=== PATIENT | female | born 1955 | race Caucasian/White ===

== ENCOUNTER → 2018-03-21 10:33 | Outpatient (CLI) | payer BC, SELFPAY ==
[2018-03-21 12:09] LABS: Microalbumin,Random Urine 63.4 mg/L (NO RANGE EST.); Microalbumin:Creatinine Ratio 52.4 mg/g CRE (<30 mg/g CRE)
[2018-03-21 12:10] LABS: ALB/GLOB Ratio 0.8 RATIO (0.9-2.4); AST(SGOT) 23 U/L (15-37); Alanine Aminotransfer ALT/SGPT 23 U/L (13-56); Albumin, Serum 3.5 g/dL (3.2-5.0); Alkaline Phosphatase 109 U/L (45-117); Anion Gap 7 (5-15); BUN 13 mg/dL (7-18); BUN/Creat Ratio 15.4 RATIO (10-20); Calcium,Total 9.1 mg/dL (8.5-10.1); Chloride 96 mmol/L (98-107); Cholesterol 225 mg/dL (200); Creatinine, Serum 0.84 mg/dL (0.55-1.02); EST Glomerular Filtration Rate 72 mL/min (>60); Est Glom Filt Rate - Afr Amer 87 mL/min (>60); Globulin 4.5 g/dL (2.2-4.2); Glucose 366 mg/dL (74-106); High Density Lipoprotein 35 mg/dL; Potassium 4.2 mmol/L (3.5-5.1); Sodium Level 134 mmol/L (136-145); Triglycerides 434 mg/dL
[2018-03-21 12:13] LABS: Hemoglobin A1c 12.3 % (4.2-6.3)
== END ==
PROVIDERS: Visit Provider Nurse Practitioner
DX: E11.8 Type 2 diabetes mellitus with unspecified complications (principal); E11.65 Type 2 diabetes mellitus with hyperglycemia
CPT/HCPCS: 36415; 80053; 80061; 82043; 82570; 83036

== ENCOUNTER → 2018-07-24 14:34 | Outpatient (CLI) | payer MEDICARE, BC, SELFPAY ==
[2018-07-24 16:09] LABS: Hemoglobin A1c 11.9 % (4.2-6.3)
[2018-07-24 16:24] LABS: ALB/GLOB Ratio 0.8 RATIO (0.9-2.4); AST(SGOT) 19 U/L (15-37); Alanine Aminotransfer ALT/SGPT 21 U/L (13-56); Albumin, Serum 3.3 g/dL (3.2-5.0); Alkaline Phosphatase 86 U/L (45-117); Anion Gap 10 (5-15); BUN 11 mg/dL (7-18); BUN/Creat Ratio 16.1 RATIO (10-20); Calcium,Total 9.3 mg/dL (8.5-10.1); Chloride 99 mmol/L (98-107); Cholesterol 208 mg/dL (200); Creatinine, Serum 0.68 mg/dL (0.55-1.02); EST Glomerular Filtration Rate 92 mL/min (>60); Est Glom Filt Rate - Afr Amer 111 mL/min (>60); Globulin 4.2 g/dL (2.2-4.2); Glucose 225 mg/dL (74-106); High Density Lipoprotein 35 mg/dL; Protein, Total 7.5 g/dL (6.4-8.2); Sodium Level 136 mmol/L (136-145); Triglycerides 344 mg/dL; Very Low Density Lipoprotein 69 mg/dL (5-40)
[2018-07-24 17:04] LABS: Microalbumin,Random Urine 29.4 mg/L (NO RANGE EST.)
== END ==
PROVIDERS: Visit Provider Nurse Practitioner
DX: E11.65 Type 2 diabetes mellitus with hyperglycemia (principal)
CPT/HCPCS: 36415; 80053; 80061; 82043; 82570; 83036

== ENCOUNTER → 2018-10-23 12:48 | Outpatient (CLI) | payer MEDICARE, BC, SELFPAY ==
[2018-10-23 13:53] LABS: Microalbumin,Random Urine 57.3 mg/L (NO RANGE EST.)
[2018-10-23 13:54] LABS: Hemoglobin A1c 10.2 % (4.2-6.3)
[2018-10-23 14:14] LABS: ALB/GLOB Ratio 0.8 RATIO (0.9-2.4); AST(SGOT) 16 U/L (15-37); Alanine Aminotransfer ALT/SGPT 20 U/L (13-56); Albumin, Serum 3.3 g/dL (3.2-5.0); Alkaline Phosphatase 106 U/L (45-117); Anion Gap 11 (5-15); BUN 16 mg/dL (7-18); BUN/Creat Ratio 18.9 RATIO (10-20); Calcium,Total 9.1 mg/dL (8.5-10.1); Chloride 98 mmol/L (98-107); Cholesterol 148 mg/dL (200); Creatinine, Serum 0.85 mg/dL (0.55-1.02); EST Glomerular Filtration Rate 72 mL/min (>60); Est Glom Filt Rate - Afr Amer 87 mL/min (>60); Globulin 4.3 g/dL (2.2-4.2); Glucose 310 mg/dL (74-106); High Density Lipoprotein 37 mg/dL; Potassium 3.9 mmol/L (3.5-5.1); Protein, Total 7.6 g/dL (6.4-8.2); Sodium Level 138 mmol/L (136-145); Triglycerides 179 mg/dL; Very Low Density Lipoprotein 36 mg/dL (5-40)
[2018-10-23 14:22] LABS: Thyroid Stim Hormone (TSH) 1.38 uIU/mL (0.358-3.74)
== END ==
PROVIDERS: Referring Provider Nurse Practitioner; Visit Provider Nurse Practitioner
DX: E11.9 Type 2 diabetes mellitus without complications (principal)
CPT/HCPCS: 36415; 80053; 80061; 82043; 83036; 84443

== ENCOUNTER → 2018-10-30 08:41 | Outpatient (CLI) | payer MEDICARE, BC, SELFPAY ==
[2018-10-23 13:34] VITALS: BMI 29.2
--- NOTE | 2018-10-30 08:44 | US_ITS ---
STUDY: THYROID ULTRASOUND REASON FOR EXAM: Female, 63 years old. Swallowing, dysphasia TECHNIQUE: Ultrasound evaluation of the thyroid was performed with real-time and static ruggiero-scale imaging. COMPARISON: None. FINDINGS: RIGHT LOBE: The right lobe of the thyroid gland measures 4.1 x 1.3 x 1.6 cm. There is a homogeneous echotexture. There are no demonstrated solid, cystic or complex lesions. LEFT LOBE: The left lobe of the thyroid gland measures 4.3 x 1.4 x 1.1 cm. There is a homogeneous echotexture. There are a few tiny cystic appearing structures within the left side of the thyroid the largest of which measures 4 x 3 x 3 mm. There is a hypoechoic nodule measuring 2.5 x 2.5 mm. ISTHMUS: The isthmus measures 3 mm. . The regional lymph nodes are normal. US/Thyroid IMPRESSION: Within normal size thyroid. Probably benign-appearing nodules within the left thyroid lobe measuring less than 4 mm. Recommend follow-up ultrasound in 6 months to ensure stability. Electronically Signed: Susannah Spencer MD at 19:31 EST Tel , Service support ,
--- OUTSIDE RECORDS SUMMARY | 2018-12-23 10:05 | XMS RPT_ITS ---
:1955 Author Organization OHIP Support Name Relationship Address Phone JORGE RIVERA Unavailable [address] + [place] [address] R Unavailable Unavailable Unavailable GLORIA REYNOSO Unavailable [address] + [place] [address] RIVERAJORGE Unavailable [address] + [place] [address] R Unavailable Unavailable Unavailable GLORIA REYNOSO Unavailable [address] + [place] [address] JORGE RIVERA Unavailable [address] + [place] [address] R Unavailable Unavailable Unavailable GLORIA REYNOSO Unavailable [address] + [place] [address] JORGE RIVERA Unavailable [address] + [place] [address] R Unavailable Unavailable Unavailable GLORIA REYNOSO Unavailable [address] + [place] [address] JORGE RIVERA Unavailable [address] + [place] [address] R Unavailable Unavailable Unavailable GLORIA REYNOSO Unavailable [address] + [place] [address] JORGE RIVERA Unavailable [address] + [place] [address] R Unavailable Unavailable Unavailable GLORIA REYNOSO Unavailable [address] + [place] [address] JORGE RIVERA Unavailable [address] + [place] [address] R Unavailable Unavailable Unavailable GLORIA REYNOSO Unavailable [address] + [place] [address] JORGE RIVERA Unavailable [address] + [place] [address] R Unavailable Unavailable Unavailable GLORIA REYNOSO Unavailable [address] + [place] [address] JORGE RIVERA Unavailable [address] + [place] [address] R Unavailable Unavailable Unavailable GLORIA REYNOSO Unavailable [address] + [place] [address] Care Team Providers Name Role Phone BABIUCH, MARIAJOSE Attending Unavailable BABIUCH, MARIAJOSE Referring Unavailable BABIUCH, MARIAJOSE Attending Unavailable BABIUCH, MARIAJOSE Referring Unavailable BABIUCH, MARIAJOSE Attending Unavailable BABIUCH, MARIAJOSE Referring Unavailable BABIUCH, MARIAJOSE Attending Unavailable BABIUCH, MARIAJOSE Referring Unavailable BABIUCH, MARIAJOSE Attending Unavailable DEASY, DELL F Attending Unavailable BABIUCH, MARIAJOSE Referring Unavailable DEASY, DELL F Attending Unavailable DEASY, DELL F Referring Unavailable DEASY, DELL F Attending Unavailable DEASY, DELL F Referring Unavailable Stencel, Kapil Primary Care Unavailable Chris Bloom Admitting Unavailable Chris Bloom Attending Unavailable Shanika Pope Attending Unavailable Mary Carrera SUBWAY CAR REPAIRER-C Attending Unavailable Primay Care Physicia, No Referring Unavailable Primay Care Physicia, No Primary Care Unavailable ShoMary bernal [employer]WAY CAR REPAIRER-C Attending Unavailable Primay Care Physicia, No Referring Unavailable Mary Carrera [employer]WAY CAR REPAIRER-C Attending Unavailable Mary Carrera [employer]WAY CAR REPAIRER-C Referring Unavailable Primay Care Physicia, No Primary Care Unavailable ShoMary bernal [employer]WAY CAR REPAIRER-C Attending Unavailable Primay Care Physicia, No Referring Unavailable Primay Care Physicia, No Primary Care Unavailable Mary Carrera [employer]WAY CAR REPAIRER-C Attending Unavailable Mary Carrera SUBWAY CAR REPAIRER-C Referring Unavailable Primay Care Physicia, No Primary Care Unavailable ShoMary bernal [employer]WAY CAR REPAIRER-C Attending Unavailable Mary Carrera [employer]WAY CAR REPAIRER-C Referring Unavailable Primay Care Physicia, No Primary Care Unavailable Mary Carrera SUBWAY CAR REPAIRER-C Attending Unavailable Primay Care Physicia, No Referring Unavailable Mary Carrera [employer]WAY CAR REPAIRER-C Attending Unavailable ShoMary bernal [employer]WAY CAR REPAIRER-C Referring Unavailable Primay Care Physicia, No Primary Care Unavailable PROBLEMS PROBLEMS DATE TYPE CONDITION / CODE ATTENDING STATUS SOURCE 10/23/2018 Unknown E11.9 - Type 2 Mary Carrera Active [place] diabetes mellitus J [employer] CAR REPAIRER-C [facility] / E11.9(ICD-10) Repository 10/23/2018 Unknown R13.10 - Dysphagia, Mary Carrera Active [place] unspecified / J [employer]WAY CAR REPAIRER-C Community R13.10(ICD-10) Hospital Repository 10/23/2018 Unknown R53.82 - Chronic ShoMary bernal Active [place] fatigue, unspecified / J [employer]WAY CAR REPAIRER-C Community R53.82(ICD-10) Hospital Repository 10/23/2018 Unknown R53.81 - Other malaise Mary Carrera Active [place] / R53.81(ICD-10) J [employer]WAY CAR REPAIRER-C [facility] Repository 07/24/2018 Unknown E11.65 - Type 2 Debi, Mary Active [place] diabetes mellitus with J [employer]WAY CAR REPAIRER-C Community hyperglycemia / Hospital E11.65(ICD-10) Repository 03/21/2018 Unknown E11.8 - Type 2 Mary Carrera Active [place] diabetes mellitus with J [employer]WAY CAR REPAIRER-C [facility] unspecified Hospital complications / Repository E11.8(ICD-10) 07/06/2017 Active Type 2 diabetes MARIAJOSE ESPINOZA Active [place] mellitus with severe Clinic Main nonproliferative [place] diabetic retinopathy Repository with macular edema, bilateral / E11.3413(ICD-10) 07/06/2017 Active 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) MARIAJOSE ESPINOZA [place] use of insulin / [facility] Z79.4(ICD-10) [place] Repository 09/24/2016 Active Steroid responder, MARIAJOSE ESPINOZA [place] bilateral / [facility] H40.043(ICD-10) [place] Repository 12/04/2015 Active Presence of MARIAJOSE ESPINOZA intraocular lens / [facility] Z96.1(ICD-10) [place] Repository PROCEDURES PROCEDURES No Procedure Records FoundRESULTS RESULTS PROGRESS Observed: 11/09/2018 Status: COMPLETED Source: [place] 3:21 PM [facility] RE[facility] HNO ID: [id number] Author: Dell Saul Service: (none) Author Type: Physician Type: Progress Notes Filed: 11/09/2018 3:22 PM Note Text: (E11.3413, Z79.4) Type 2 diabetes mellitus with both eyes affected by severe nonproliferative retinopathy and macular edema, with long-term current use of insulin (HCC) (primary encounter diagnosis) Insulin dependent diabetes mellitus with stable edema Right eye. The left eye shows reduced edema. Advise intravitreal eylea Left eye today. Return to clinic in 4 weeks for re-evaluation. The documentation recorded by the scribe accurately reflects the service I personally performed and the decisions made by me. I have confirmed and edited as necessary the relevant ophthalmic history, ROS, and the neuro exam findings as obtained by others. I have seen and examined Shantell Rivera. I have discussed the case and the management of this patient's care with the Internal Affairs Commander, if applicable. I also have reviewed and agree with the assessment and plan as stated above and agree with all of its relevant components. Dell Saul MD November 09, 2018 3:22 PM THYROID Observed: 10/30/2018 Status: F Source: [place] 8:44 AM [facility] REPOSITORY [facility] Imaging Services [address] [place] [address] Thyroid MR#: [id number] Acct: [id number] Name: SHANTELL RIVERA Rep #: [id number] : 1955 F 63 From: Susannah Spencer MD PCP: Care Physician, No Primary Status: REG CLI Study: Thyroid Date of Exam: 10/30/18 Exam# [id number] Ordering Dr: Mary Carrera SUBWAY CAR REPAIRER-C STUDY: THYROID ULTRASOUND REASON FOR EXAM: Female, 63 years old. Swallowing, dysphasia TECHNIQUE: Ultrasound evaluation of the thyroid was performed with real-time and static ruggiero-scale imaging. COMPARISON: None. FINDINGS: RIGHT LOBE: The right lobe of the thyroid gland measures 4.1 x 1.3 x 1.6 cm. There is a homogeneous echotexture. There are no demonstrated solid, cystic or complex lesions. LEFT LOBE: The left lobe of the thyroid gland measures 4.3 x 1.4 x 1.1 cm. There is a homogeneous echotexture. There are a few tiny cystic appearing structures within the left side of the thyroid the largest of which measures 4 x 3 x 3 mm. There is a hypoechoic nodule measuring 2.5 x 2.5 mm. ISTHMUS: The isthmus measures 3 mm. . The regional lymph nodes are normal. US/Thyroid IMPRESSION: Within normal size thyroid. Probably benign-appearing nodules within the left thyroid lobe measuring less than 4 mm. Recommend follow-up ultrasound in 6 months to ensure stability. Electronically Signed: Susannah Spencer MD at 19:31 EST Tel , Service support , CC: Mary Carrera NP; No Primary Care Physician Traffic Operator: Signed ENDOCRINOLOGY VISIT Observed: 10/23/2018 Status: F Source: [place] REPORT 2:38 PM [facility] REPOSITORY [facility] [address] [place] [address]. [address] [place] [address] OFFICE VISIT Date of Service: 10/23/18 MR#: [id number] Acct: [id number] Name: SHANTELL RIVERA Rep #: [id number] : 1955 Provider: Mary Carrera NP Age/Sex: 63/F Location: [facility] [place] Status: Signed HPI History of present illness HPI History of present illness Shantell Rivera is a 63year old female who presents for follow up of diabetes type 2. Diagnosed in 1998.DKA few months ago. . Pt continues on levemir 18 units twice daily and meal insulin 3 units per meal. Brings her BG meter with readings noted average 150-240. Did have one BG over 300 range when she forgot to take meal insulin before eating. Notes she has checked 2-3 BG daily for this review period. Pt denies difficulty with injections or self monitoring of BG. Denies any signs of infection or irritation at site of injections. Reports taking insulin as directed Complains of ongoing fatigue. Son recently diagnosed with thyroid issues and had to have partial thyroidectomy. Patient is concerned. She is having fatigue, weight gain, hair changes, and other s/s of hypothyroidism. At time of visit: -Pt denies symptoms of hypertensive emergency (CP,SOB,CARRASCO, or blurred vision) and hypotension(dizziness or lightheadedness) -Pt denies symptoms of hypoglycemia ( sweaty, confusion, anxiety, tremor, hunger, palpitations) and hyperglycemia ( polydipsia, polyuria) -Pt denies potential medication adverse effect. 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 Exam Const General: comfortable, no acute distress Nutritional Appearance: well nourished Orientation: oriented x3 HENMT Head: normal to inspection, atraumatic Ears: hearing grossly normal bilaterally Nose: no nasal discharge Mouth: oral mucosae normal, moist mucous membranes Teeth and gingiva: dentition normal Eyes General: appearance normal, both eyes and all related structures Eyelids: eyelids normal Conjunctivae: conjunctivae normal Sclera: sclerae normal Neck Neck: normal visual inspection, supple Neck mass: No Thyroid: thyroid normal Chest Chest palpation AND inspection: deferred Resp Effort AND Inspection: able to speak in complete sentences, normal respiratory effort, symmetric chest movement Auscultation: Bilateral: Clear to Auscultation Cardio Rate: regular rate Rhythm: regular rhythm Heart Sounds: S1 normal, S2 normal GI Inspection: normal to inspection Auscultation: normal bowel sounds Palpation: soft General: deferred Skin General: no rashes or lesions noted Wounds: no wounds Diabetic Foot Pulses: L dorsalis pedis pulse: normal, R dorsalis pedis pulse: normal Monofilament test: Left foot: normal, Right foot: normal Neuro General: gait normal Cognition: normal cognition Speech: speech normal Gait: normal gait Extrem General: normal exam except as noted, pedal edema Psych Appearance: well kempt Mood: congruent mood Affect: normal affect Thought Process: normal Thought Content: normal Judgment: judgment good Type: type 2, insulin-requiring Glucose control symptoms: Reports high fasting glucose Weight and fatigue symptoms: Reports tired all the time; denies snoring Cardiopulmonary symptoms: Denies myalgias, chest pain at rest, dyspnea on exertion or lightheadedness GI symptoms: Reports constipation, diarrhea, nausea/dyspepsia and vomiting Skin and extremity symptoms: Reports tingling/numbness/burning Other symptoms: Reports change in vision; denies blurry vision Pertinent visit history: Denies recent visit to ER, recent hospital admission or recent 911 calls Self monitoring: Yes Dietary compliance: Diabetes: good Diabetes education in past year: Yes Glucose testing: demonstrates correct use of meter, understands testing schedule Sick day education - understands ketone testing: Yes Physical activity: regular Intake Vital Signs10/23/18 Height 5 ft 1 in 10/23/18 Weight: 155 lb 10/23/18 Body Mass Index (BMI) 29.2 10/23/18 Blood Pressure 118/80 10/23/18 Blood Pressure Location Lt popliteal 10/23/18 Blood Pressure Position Sitting Intake Visit Reasons: Diabetes follow-up Director Life Required: No Accompanied by: Self Allergies adhesive tape Allergy (Severe, Verified 10/23/18 13:32) Unknown codeine Allergy (Severe, Verified 10/23/18 13:32) Unknown Medications mirtazapine 15 mg tablet 15 mg PO QHS 12/15/17 [History Confirmed 10/23/18] insulin lispro (U- 100) 100 unit/mL subcutaneous pen See Rx Instructions SC TID #15 ml 03/21/18 [Rx Confirmed 10/23/18] insulin detemir (U-100) 100 unit/mL (3 mL) subcutaneous pen 40 unit SC .q day #15 ml 07/24/18 [Rx Confirmed 10/23/18] lovastatin 10 mg tablet 10 mg PO QPM #30 tab 07/24/18 [Rx Confirmed 10/23/18] blood sugar diagnostic strips See Dose Instructions .ROUTE .MEDSUPPLY #100 ea 10/11/18 [Rx Confirmed 10/23/18] Nurse's Note: blood sugars : low : 180 high : 334 PFSH Medical History Back problem (Acute) Bone fracture (Acute) Cataracts, bilateral (Acute) Diabetes type 2, controlled (Acute) Pancreatitis (Acute) Vision problems (Acute) Surgical History Hx of appendectomy (Acute) Hx of cataract surgery (Acute) Hx of cholecystectomy (Acute) S/P partial hysterectomy (Acute) Status post ORIF of fracture of ankle (Acute) Family History Mother Diabetes Father Heart disease Hypertension Social History Smoking Status: Never smoker second hand exposure: No alcohol intake: never substance use type: does not use ROS Const Constitutional: Positive for fatigue, malaise and weight change; no anorexia, body ache, chills, fever(s), frequent falls, decreased energy, night sweats, weakness, sleep problems, abnormal sleep pattern, change in appetite, other, headache(s), snoring or excessive sweating Eyes Eyes: Positive for change in vision; no blurry vision, double vision, discharge, dry eyes, bulging eyes, floaters, visual disturbances, eye pain, light sensitivity, spots in vision, tunnel vision or other ENT ENT: Positive for nasal congestion and nasal discharge; no abnormal hearing, ear pain, ear discharge, ear pressure, hearing loss, tinnitus, dizziness/vertigo, balance problems, nosebleed/epistaxis, nasal obstruction, nose pain, sinus pressure, sinus pain, post nasal drip, headache(s), facial pain, dental pain, dry mouth, bad breath, hoarseness, lip swelling, mouth lesions, mouth pain, sore throat, tongue swelling, throat swelling, other, difficulty swallowing or neck pain Resp Respiratory: No cough, change in phlegm color, chest congestion, excessive phlegm production, hemoptysis, pain on inspiration, shortness of breath, pain with cough, snoring, stridor, wheezing or other Cardio Cardiology: Positive for other (fainted x 1); no chest pain at rest, chest pain with exertion, leg pain with exertion, excessive sweating, shortness of breath, dyspnea on exertion, generalized swelling, irregular heart rhythm, lightheadedness, orthopnea, radiating jaw, neck or arm pain, fast heart rate, slow heart rate or palpitations Gastro GI: Positive for abdominal pain, constipation, diarrhea, heartburn, nausea/dyspepsia and vomiting; no belching, bloating, change in bowel habits, change in stool character, coffee ground emesis, cramping, difficulty swallowing, feeling full early, excessive flatus, incontinent of stools, Vomiting blood/hematemesis, blood in stool, loose stools, Black,tarry stools, pain with swallowing or other Genitourinary-Female: No difficulty urinating, burning urination, painful urination, urinary incontinence, urinary frequency, urinary urgency, urinary hesitancy, urinary retention, blood in urine, Frequent nighttime urination/ nocturia, post void dribbling, suprapubic fullness, side pain, sexual problems, genital lesions, genital itching, hot flashes, abnormal periods, abnormal vaginal bleeding, absent period, painful periods, light periods, heavy periods, difficulty getting , painful intercourse, pelvic pain, vaginal dryness, vaginal odor, Vaginal Itching or other Musc Musculoskeletal: No abnormal walking, joint pain, back pain, deformity, joint swelling, limited range of motion, loss of height, muscle cramps, muscle weakness, decreased muscle mass, body aches, neck pain, numbness, radiating pain into limb, stiffness, tingling or other Skin Skin: Positive for change in hair; no acne, hair loss, nail changes, boil, change in skin color, dry skin, redness, excessive hair growth, yellowing of the skin, lesions, itching, rash, skin pain, skin ulcer, sores, skin swelling, wounds or other Breast Breast: No other Neuro Neurology: No frequent falls, weakness, visual disturbances, abnormal hearing, headache(s), abnormal walking, numbness or tingling Psych Psychiatric: No abnormal sleep pattern, No change in appetite Endo Endocrine: Positive for fatigue; no other or excessive sweating Aller/Imm Allergy/Immunologic: No lip swelling, tongue swelling, throat swelling, wheezing or itchy eyes Assessment AND Plan 1. Uncontrolled type 2 diabetes mellitus with hyperglycemia E11.65 Plan Diabetes: Reports spent several weeks out of state with family and had much improved BG readings. She attributes this to eating eveningmeal early in evening without snacking. This is not something she is able to do at home as her works late and her meals at home are very late in the day. Enc to increase levemir to 10 in am and 20 units in pm. If she continues to have elevated BG throughout the night she is ask to further increase pm levemir by 1-2 units. Continues to see process maintenance technician every 70-90 days. Has sl numbness in feet but has no issues with monofilament test. Had labs done this am. TSH added due to issues with difficulty swallowing and fatigue. Son recently diagnosed with thyroid issues and also had partial thyroidectomy. Also reports hx of thyroid issues of her mother. BP in range. 2. Malaise and fatigue R53.81; R53.83 Plan See above regarding lab tests and thyroid US ordered. Orders Orders: 3. Hyperlipidemia associated with type 2 diabetes mellitus E11.69; E78.5 Plan Taking lovastatin 10mg without side effect. Labs not available at this time. Plan Detail Other Orders Orders: Additional Comments 1. Please schedule follow up in 3 months. 2. Lab work one week before appointment. 3. Discussed importance of regular exercise and recommend starting or continuing a regular exercise program for good health. 4. The patient was encouraged to lose weight for good health 5. The importance of monitoring blood sugar regularly was reviewed. 6. The importance of monitoring the HBA1c level regularly was reviewed. 7. The importance of prper foot care and regularly checking feet to prevent sores and loss of limbs was reviewed. 8. The importance of keeping BP at or below 130/80 to prevent stroke, heart attacks, kidney failure, blindness was reviewed. Spent approximately 30 minutes with patient with over 50% of time spent in discussion and counseling regarding medication adjustment, symptoms and treatment of hypoglycemia, diet adherence, and checking BG before driving. Coding Level of Care Code Off vis,est,level 4 Diagnoses Uncontrolled type 2 diabetes mellitus with hyperglycemia E11.65 Glycemic state: with hyperglycemia Malaise and fatigue R53.81; R53.83 Hyperlipidemia associated with type 2 diabetes mellitus E11.69; E78.5 10/23/18 1438 <Electronically signed by Mary DAVID> Date Mary DAVID Cosigner Signature: Date (if applicable) CC: MICROALBUMIN,RANDOM URINE Collected: Status: F Source: [place] 10/23/2018 1:00 PM [facility] REPOSITORY TYPE CODE TESTS RESULT OUT OF RANGE REFERENCE UNITS LAB L502.0500 NO RANGE EST. mg/L Normal 57.3 MICROALBUMIN ,UR Performed By: #### L502.0500 #### [place] [facility] [address] [place], [address] HEMOGLOBIN A1C Collected: 10/23/2018 Status: F Source: [place] 1:00 PM [facility] REPOSITORY TYPE CODE TESTS RESULT OUT OF RANGE REFERENCE UNITS LAB L501.9985 4.2-6.3 % High HGB A1C 10.2 Performed By: #### L501.9985 #### [facility] [place], [address] COMPREHENSIVE METABOLIC Collected: 10/23/2018 Status: F Source: [facility] 1:00 PM [facility] REPOSITORY TYPE CODE TESTS RESULT OUT OF RANGE REFERENCE UNITS LAB L501.0100 74-106 mg/dL High GLU 310 Result Comment: Glucose result greater than or equal to 200 mg/dL suggests DIABETES MELLITUS per A.D.A. criteria. Please note revised GLUCOSE reference range effective 2017. LAB L501.1000 7-18 mg/dL Normal BUN 16 LAB L501.1100 0.55-1.02 mg/dL Normal CREAT,SERUM 0.85 Result Comment: The validity of the calculated GFR AND GFRAA in patients over 70 years has not been determined. Clinical correlation is essential. LAB L501.1110 >60 mL/min Normal EST GFR 72 Result Comment: Non- GFR Calc LAB L501.1115 >60 mL/min Normal EST GFR - AA 87 Result Comment: GFR Calc LAB L501.1300 10-20 RATIO Normal BUN/CRE 18.9 LAB L501.1500 6.4-8.2 g/dL T Normal PROT 7.6 LAB L501.1800 3.2-5.0 g/dL Normal ALB 3.3 LAB L501.1950 2.2-4.2 g/dL High GLOB 4.3 LAB L501.2000 0.9-2.4 RATIO Low A/G 0.8 LAB L501.2200 8.5-10.1 mg/dL CA Normal 9.1 LAB L501.4100 15-37 U/L Normal AST 16 LAB L501.4305 45-117 U/L Normal ALK P 106 LAB L501.4405 13-56 U/L Normal ALT 20 LAB L501.4600 0.20-1.00 mg/dL T Normal BILI 0.60 LAB L501.5300 136-145 mmol/L NA Normal 138 LAB L501.5600 3.5-5.1 mmol/L K Normal 3.9 LAB L501.5900 98-107 mmol/L CL Normal 98 LAB L501.6100 21.0-32.0 mmol/L Normal CO2 29.0 LAB L501.6200 5-15 Normal GAP 11 Performed By: #### L500.4050, L500.4100 #### [facility] [address] [place], [place], [address] LIPID PROFILE Collected: 10/23/2018 Status: F Source: [place] 1:00 PM [facility] REPOSITORY TYPE CODE TESTS RESULT OUT OF RANGE REFERENCE UNITS LAB L501.4900 200 mg/dL Normal CHOL 148 Result Comment: <200 mg/dL Desirable 200-240 mg/dL Borderline >240 mg/dL High Risk LAB L501.5000 mg/dL Normal TRIG 179 Result Comment: The drugs N-Acetylcysteine and Metamizole may falsely depress this assay. Serum Triglycerides Reference Interval Normal <150 mg/dL Borderline high 150 - 199 mg/dL High 200 - 499 mg/dL Very High > or = 500 mg/dL LAB L501.6400 mg/dL Low HDL 37 Result Comment: The drugs N-Acetylcysteine and Metamizole may falsely depress this assay. Reference Range HDL <40 mg/dL Low HDL Cholesterol HDL >or= 60 mg/dL High HDL Cholesterol LAB L501.6500 0-130 mg/dL Normal LDL 75 LAB L501.6600 5-40 mg/dL Normal VLDL 36 Performed By: #### L500.4050, L500.4100 #### [facility] [address] [place], [address] THYROID STIM HORMONE Collected: 10/23/2018 Status: F Source: [facility] (TSH) 1:00 PM [facility] REPOSITORY TYPE CODE TESTS RESULT OUT OF RANGE REFERENCE UNITS LAB L501.9520 0.358-3.74 uIU/mL Normal TSH 1.38 Performed By: #### L501.9520 #### [facility] [address] [place], [address] PROGRESS Observed: 10/05/2018 Status: COMPLETED Source: [place] 2:42 PM [facility] REPOSITORY HNO ID: [id number] Author: Dell Saul Service: (none) Author Type: Physician Type: Progress Notes Filed: 10/05/2018 2:44 PM Note Text: (E11.3413, Z79.4) Type 2 diabetes mellitus with both eyes affected by severe nonproliferative retinopathy and macular edema, with long-term current use of insulin (HCC) Improving edema Right eye Status post intravitreal eylea x 6 weeks. Advise observation. Increased edema Left eye status post intravitreal eylea Left eye. Advise intravitreal eylea Left eye today and return to clinic in 4 weeks for Visual acuity, Intraocular pressure, OCT and straight to inject intravitreal eylea Left eye versus Both eyes. The documentation recorded by the scribe accurately reflects the service I personally performed and the decisions made by me. I have confirmed and edited as necessary the relevant ophthalmic history, ROS, and the neuro exam findings as obtained by others. I have seen and examined Shantell Rivera. I have discussed the case and the management of this patient's care with the Internal Affairs Commander, if applicable. I also have reviewed and agree with the assessment and plan as stated above and agree with all of its relevant components. Dell Saul MD October 05, 2018 2:43 PM PROGRESS Observed: 08/10/2018 Status: COMPLETED Source: [place] 10:30 AM [facility] REPOSITORY O ID: [id number] Author: Dell Saul Service: (none) Author Type: Physician Type: Progress Notes Filed: 08/10/2018 11:29 AM Note Text: (E11.3413, Z79.4) Type 2 diabetes mellitus with both eyes affected by severe nonproliferative retinopathy and macular edema, with long-term current use of insulin (HCC) (primary encounter diagnosis) (H26.493) PCO (posterior capsular opacification), bilateral (Z96.1) Pseudophakia of both eyes 63 year old female patient with type 2 Insulin dependent diabetes mellitus that demonstrate Non proliferative diabetic retinopathy with edema. The right eye demonstrates mild edema. Advise intravitreal eylea Right eye today. The left eye demonstrates increased edema. Advise intravitreal eylea Left eye today. Posterior capsular opacity Both eyes. Advise observation at this time. Return to clinic in 6 (pt going out of town) weeks for Visual acuity, Intraocular pressure, OCT and straight to inject intravitreal eylea Left eye versus Both eyes. RFD to evaluate OCT to decide. The documentation recorded by the scribe accurately reflects the service I personally performed and the decisions made by me. I have confirmed and edited as necessary the relevant ophthalmic history, ROS, and the neuro exam findings as obtained by others. I have seen and examined Shantell Rivera. I have discussed the case and the management of this patient's care with the Internal Affairs Commander, if applicable. I also have reviewed and agree with the assessment and plan as stated above and agree with all of its relevant components. Dell Saul MD August 10, 2018 10:33 AM ENDOCRINOLOGY VISIT Observed: 07/25/2018 Status: F Source: [place] RE[place] 7:38 AM [facility] REPOSITORY [facility] [address] [place] [address]. [address] [place] [address] OFFICE VISIT Date of Service: 07/24/18 MR#: [id number] Acct: [id number] Name: SHANTELL RIVERA Rep #: [id number] : 1955 Provider: Mary Carrera NP Age/Sex: 63/F Location: [facility] [place] Status: Signed HPI History of present illness HPI History of present illness Shantell Rivera is a 63year old female who presents for follow up of diabetes type 2. Diagnosed in 1998.DKA few months ago. . Pt continues on lantus 15 units twice daily and meal insulin 3 units per meal. Brings her BG meter with readings noted average 190- 250 Notes she has only checked 1-2 BG daily for this review period. Pt denies difficulty with injections or self monitoring of BG. Denies any signs of infection or irritation at site of injections. Reports taking insulin as directed At time of visit: -Pt denies symptoms of hypertensive emergency (CP,SOB,CARRASCO, or blurred vision) and hypotension(dizziness or lightheadedness) -Pt denies symptoms of hypoglycemia ( sweaty, confusion, anxiety, tremor, hunger, palpitations) and hyperglycemia ( polydipsia, polyuria) -Pt denies potential medication adverse effect. 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 Exam Const General: comfortable, no acute distress Nutritional Appearance: well nourished Orientation: oriented x3 HENMT Head: normal to inspection, atraumatic Ears: hearing grossly normal bilaterally Nose: no nasal discharge Mouth: oral mucosae normal, moist mucous membranes Teeth and gingiva: dentition normal Eyes General: appearance normal, both eyes and all related structures Eyelids: eyelids normal Conjunctivae: conjunctivae normal Sclera: sclerae normal Neck Neck: normal visual inspection, supple Neck mass: No Thyroid: thyroid normal Chest Chest palpation AND inspection: deferred Resp Effort AND Inspection: able to speak in complete sentences, normal respiratory effort, symmetric chest movement Auscultation: Bilateral: Clear to Auscultation Cardio Rate: regular rate Rhythm: regular rhythm Heart Sounds: S1 normal, S2 normal GI Inspection: normal to inspection Auscultation: normal bowel sounds Palpation: soft General: deferred Skin General: no rashes or lesions noted Wounds: no wounds Diabetic Foot Pulses: L dorsalis pedis pulse: normal, R dorsalis pedis pulse: normal Monofilament test: Left foot: normal, Right foot: normal Neuro General: gait normal Cognition: normal cognition Speech: speech normal Gait: normal gait Extrem General: normal exam except as noted, pedal edema Psych Appearance: well kempt Mood: congruent mood Affect: normal affect Thought Process: normal Thought Content: normal Judgment: judgment good Type: type 1, insulin-requiring Glucose control symptoms: Reports high fasting glucose and high post-meal glucose Weight and fatigue symptoms: Reports weight gain; denies snoring Cardiopulmonary symptoms: Denies chest pain at rest, dyspnea on exertion, lightheadedness or myalgias GI symptoms: Denies constipation, diarrhea, nausea/dyspepsia or vomiting Skin and extremity symptoms: Denies tingling/numbness/burning Other symptoms: Denies blurry vision or change in vision Pertinent visit history: Denies recent visit to ER or recent 911 calls Self monitoring: Yes Dietary compliance: Diabetes: good Diabetes education in past year: Yes Glucose testing: demonstrates correct use of meter, auditor/quality Physical activity: regular Intake Vital Signs07/24/18 Height 5 ft 1 in 07/24/18 Weight: 154 lb 07/24/18 Body Mass Index (BMI) 29.0 07/24/18 Blood Pressure 116/79 07/24/18 Blood Pressure Location Lt popliteal 07/24/18 Blood Pressure Position Sitting Intake Visit Reasons: Diabetes follow-up Director Life Required: No Accompanied by: Family / Other Is patient in pain?: No Allergies adhesive tape Allergy (Severe, Verified 07/24/18 13:33) Unknown codeine Allergy (Severe, Verified 07/24/18 13:33) Unknown Medications blood sugar diagnostic strips See Dose Instructions .ROUTE .MEDSUPPLY #20 ea 12/15/17 [History Confirmed 07/24/18] mirtazapine 15 mg tablet 15 mg PO QHS 12/15/17 [History Confirmed 07/24/18] insulin lispro (U-100) 100 unit/mL subcutaneous pen See Label Instructions SC TID #15 ml 03/21/18 [Rx Confirmed 07/24/18] insulin detemir (U-100) 100 unit/mL (3 mL) subcutaneous pen 40 unit SC .q day #15 ml 07/24/18 [Rx Confirmed 07/24/18] lovastatin 10 mg tablet 10 mg PO QPM #30 tab 07/24/18 [Rx Confirmed 07/24/18] Is last menstrual period known: No Post menopausal: Yes Patient : No Nurse's Note: blood sugars : low : 192 high : 308 PFSH Medical History Back problem (Acute) Bone fracture (Acute) Cataracts, bilateral (Acute) Diabetes type 2, controlled (Acute) Pancreatitis (Acute) Status post ORIF of fracture of ankle (Acute) Vision problems (Acute) Surgical History Hx of appendectomy (Acute) Hx of cataract surgery (Acute) Hx of cholecystectomy (Acute) S/P partial hysterectomy (Acute) Family History Mother Diabetes Father Heart disease Hypertension Social History Smoking Status: Never smoker second hand exposure: No alcohol intake: never substance use type: does not use ROS Const Constitutional: No anorexia, body ache, chills, fatigue, fever(s), frequent falls, decreased energy, malaise, night sweats, weakness, weight change, sleep problems, abnormal sleep pattern, change in appetite, other, headache(s), snoring or excessive sweating Eyes Eyes: No blurry vision, change in vision, double vision, discharge, dry eyes, bulging eyes, floaters, visual disturbances, eye pain, light sensitivity, spots in vision, tunnel vision or other ENT ENT: No abnormal hearing, ear pain, ear discharge, ear pressure, hearing loss, tinnitus, dizziness/vertigo, balance problems, nosebleed/epistaxis, nasal congestion, nasal obstruction, nose pain, sinus pressure, sinus pain, nasal discharge, post nasal drip, headache(s), facial pain, dental pain, dry mouth, bad breath, hoarseness, lip swelling, mouth lesions, mouth pain, sore throat, tongue swelling, throat swelling, other, difficulty swallowing or neck pain Resp Respiratory: No cough, change in phlegm color, chest congestion, excessive phlegm production, hemoptysis, pain on inspiration, shortness of breath, pain with cough, snoring, stridor, wheezing or other Cardio Cardiology: No chest pain at rest, chest pain with exertion, leg pain with exertion, excessive sweating, shortness of breath, dyspnea on exertion, generalized swelling, irregular heart rhythm, lightheadedness, orthopnea, radiating jaw, neck or arm pain, fast heart rate, slow heart rate, palpitations or other Gastro GI: No abdominal pain, belching, bloating, change in bowel habits, change in stool character, coffee ground emesis, constipation, cramping, diarrhea, heartburn, difficulty swallowing, feeling full early, excessive flatus, incontinent of stools, Vomiting blood/hematemesis, blood in stool, loose stools, Black,tarry stools, nausea/dyspepsia, pain with swallowing, vomiting or other Genitourinary-Female: No difficulty urinating, burning urination, painful urination, urinary incontinence, urinary frequency, urinary urgency, urinary hesitancy, urinary retention, blood in urine, Frequent nighttime urination/ nocturia, post void dribbling, suprapubic fullness, side pain, sexual problems, genital lesions, genital itching, hot flashes, abnormal periods, abnormal vaginal bleeding, absent period, painful periods, light periods, heavy periods, difficulty getting , painful intercourse, pelvic pain, vaginal dryness, vaginal odor, Vaginal Itching or other Musc Musculoskeletal: No abnormal walking, joint pain, back pain, deformity, joint swelling, limited range of motion, loss of height, muscle cramps, muscle weakness, decreased muscle mass, body aches, neck pain, numbness, radiating pain into limb, stiffness, tingling or other Skin Skin: No acne, hair loss, change in hair, nail changes, boil, change in skin color, dry skin, redness, excessive hair growth, yellowing of the skin, lesions, itching, rash, skin pain, skin ulcer, sores, skin swelling, wounds or other Breast Breast: No other Neuro Neurology: No frequent falls, weakness, visual disturbances, abnormal hearing, headache(s), abnormal walking, numbness or tingling Psych Psychiatric: No abnormal sleep pattern, No change in appetite Endo Endocrine: No fatigue, other or excessive sweating Aller/Imm Allergy/Immunologic: No lip swelling, tongue swelling, throat swelling, wheezing or itchy eyes Assessment AND Plan 1. Diabetes type 2, uncontrolled E11.65 Plan Splitting levemir doing fine but continues to need higher dose. Increase levemir to 17 units twice daily. If all BG remain above 150 after 5 days, incerase by 1 unit every 5 days until BG around 150. Not on statin or tressa inhibitor Start lovastatin 10mg. If you have muscle aches or joint pains stop medication and notify office. Recheck cholesterol in 3 months. Control portions Food selections should be healthy Choose more low carb vegetables Avoid snacks and desserts. Drink water Exercise daily Eat more fresh foods, not canned or processed Eat more slowly Orders Orders: Medications New: Plan Detail Other Orders Orders: Additional Comments 1. Please schedule follow up in 3 months. 2. Lab work one week before appointment. 3. Discussed importance of regular exercise and recommend starting or continuing a regular exercise program for good health. 4. The patient was encouraged to lose weight for good health 5. The importance of monitoring blood sugar regularly was reviewed. 6. The importance of monitoring the HBA1c level regularly was reviewed. 7. The importance of prper foot care and regularly checking feet to prevent sores and loss of limbs was reviewed. 8. The importance of keeping BP at or below 130/80 to prevent stroke, heart attacks, kidney failure, blindness was reviewed. Spent approximately 30 minutes with patient with over 50% of time spent in discussion and counseling regarding medication adjustment, symptoms and treatment of hypoglycemia, diet adherence, and checking BG before driving. Coding Level of Care Code Off vis,est,level 4 Diagnoses Diabetes type 2, uncontrolled E11.65 07/25/18 0738 <Electronically signed by Mayr DAVID> Date Mary DAVID Cosigner Signature: Date (if applicable) CC: HEMOGLOBIN A1C Collected: 07/24/2018 Status: F Source: [place] 2:46 PM [facility] REPOSITORY TYPE CODE TESTS RESULT OUT OF RANGE REFERENCE UNITS LAB L501.9985 4.2-6.3 % High HGB A1C 11.9 Performed By: #### L501.9985, L500.4050, L500.4100 #### [facility] [place] [address], [address] COMPREHENSIVE METABOLIC Collected: 07/24/2018 Status: F Source: [facility] 2:46 PM [facility] REPOSITORY TYPE CODE TESTS RESULT OUT OF RANGE REFERENCE UNITS LAB L501.0100 74-106 mg/dL High GLU 225 Result Comment: Glucose result greater than or equal to 200 mg/dL suggests DIABETES MELLITUS per A.D.A. criteria. Please note revised GLUCOSE reference range effective 2017. LAB L501.1000 7-18 mg/dL Normal BUN 11 LAB L501.1100 0.55-1.02 mg/dL Normal CREAT,SERUM 0.68 Result Comment: The validity of the calculated GFR AND GFRAA in patients over 70 years has not been determined. Clinical correlation is essential. LAB L501.1110 >60 mL/min Normal EST GFR 92 Result Comment: Non- GFR Calc LAB L501.1115 >60 mL/min Normal EST GFR - AA 111 Result Comment: GFR Calc LAB L501.1300 10-20 RATIO Normal BUN/CRE 16.1 LAB L501.1500 6.4-8.2 g/dL T Normal PROT 7.5 LAB L501.1800 3.2-5.0 g/dL Normal ALB 3.3 LAB L501.1950 2.2-4.2 g/dL Normal GLOB 4.2 LAB L501.2000 0.9-2.4 RATIO Low A/G 0.8 LAB L501.2200 8.5-10.1 mg/dL CA Normal 9.3 LAB L501.4100 15-37 U/L Normal AST 19 LAB L501.4305 45-117 U/L Normal ALK P 86 LAB L501.4405 13-56 U/L Normal ALT 21 LAB L501.4600 0.20-1.00 mg/dL T Normal BILI 0.50 LAB L501.5300 136-145 mmol/L NA Normal 136 LAB L501.5600 3.5-5.1 mmol/L K Normal 4.0 LAB L501.5900 98-107 mmol/L CL Normal 99 LAB L501.6100 21.0-32.0 mmol/L Normal CO2 27.0 LAB L501.6200 5-15 Normal GAP 10 Performed By: #### L501.9985, L500.4050, L500.4100 #### [facility] [address] [place], [address] LIPID PROFILE Collected: 07/24/2018 Status: F Source: [place] 2:46 PM [facility] REPOSITORY TYPE CODE TESTS RESULT OUT OF RANGE REFERENCE UNITS LAB L501.4900 200 mg/dL High CHOL 208 Result Comment: <200 mg/dL Desirable 200-240 mg/dL Borderline >240 mg/dL High Risk LAB L501.5000 mg/dL High TRIG 344 Result Comment: The drugs N-Acetylcysteine and Metamizole may falsely depress this assay. Serum Triglycerides Reference Interval Normal <150 mg/dL Borderline high 150 - 199 mg/dL High 200 - 499 mg/dL Very High > or = 500 mg/dL LAB L501.6400 mg/dL Low HDL 35 Result Comment: The drugs N-Acetylcysteine and Metamizole may falsely depress this assay. Reference Range HDL <40 mg/dL Low HDL Cholesterol HDL >or= 60 mg/dL High HDL Cholesterol LAB L501.6500 0-130 mg/dL Normal LDL 104 LAB L501.6600 5-40 mg/dL High VLDL 69 Performed By: #### L501.9985, L500.4050, L500.4100 #### [facility] [address] [place], [address] MICROALB:CREAT Collected: 07/24/2018 Status: F Source: [facility] 2:46 PM [facility] REPOSITORY TYPE CODE TESTS RESULT OUT OF RANGE REFERENCE UNITS LAB L501.1200 NO RANGE EST. mg/dL Normal UR CREAT 109.00 LAB L502.0500 NO RANGE EST. 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, with long-term current use of insulin (HCC) (primary encounter diagnosis) Comment: macular edema both eyes (left eye > right eye ) - Right eye: s/p Avastin x 5 (01/14/2017) AND s/p Eylea x 12 (05/25/2018) - Left eye: s/p Avastin x 8 (12/03/2016) AND s/p focal laser x 1 (01/14/2017) AND s/p Eylea x 12 (05/25/2018) - here for Eylea both eyes today and follow up 4-6 weeks for Eylea both eyes - may benefit from peripheral panretinal laser photocoagulation 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 [facility] Z96.1. Pseudophakia Both eyes - Right eye (12-03-2015) -Left eye (11-11-2015) Follow up Mariajose Espinoza MD Any documentation recorded by the scribe accurately reflects the service I personally performed and the decisions made by myself, Mariajose Espinoza MD. I have confirmed and edited as necessary the relevant ophthalmic history, ROS, and the neuro exam findings as obtained by others. I have seen and examined Shantell Rivera. I have discussed the case and the management of this patient's care with the Resident/Fellow, if applicable. I also have reviewed and agree with the assessment and plan as stated above and agree with all of its relevant components. 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, with long-term current use of insulin (HCC) (primary encounter diagnosis) Comment: macular edema both eyes (left eye > right eye ) - Right eye: s/p Avastin x 5 (01/14/2017) AND s/p Eylea x 11 (04/20/2018) - Left eye: s/p Avastin x 8 (12/03/2016) AND s/p focal laser x 1 (01/14/2017) AND s/p Eylea x 11 (04/20/2018) - here for Eylea both eyes today and follow up 4-6 weeks for Eylea both eyes - may benefit from peripheral panretinal laser photocoagulation 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 [facility] response Z96.1. Pseudophakia Both eyes - Right eye (12-03-2015) -Left eye (11-11-2015) Follow up Mariajose Espinoza MD Any documentation recorded by the scribe accurately reflects the service I personally performed and the decisions made by myself, Mariajose Espinoza MD. I have confirmed and edited as necessary the relevant ophthalmic history, ROS, and the neuro exam findings as obtained by others. I have seen and examined Shantell Matthews Rivera. I have discussed the case and the management of this patient's care with the Resident/Fellow, if applicable. I also have reviewed and agree with the assessment and plan as stated above and agree with all of its relevant components. 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, with long-term current use of insulin (HCC) (primary encounter diagnosis) Comment: macular edema both eyes (left eye > right eye ) - Right eye: s/p Avastin x 5 (01/14/2017) AND s/p Eylea x 10 (03/09/2018) - Left eye: s/p Avastin x 8 (12/03/2016) AND s/p focal laser x 1 (01/14/2017) AND s/p Eylea x 10 (03/09/2018) - here for Eylea both eyes today and follow up 4-6 weeks for Eylea both eyes - may benefit from peripheral panretinal laser photocoagulation 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 [facility] response Z96.1. Pseudophakia Both eyes - Right eye (12-03-2015) -Left eye (11-11-2015) Follow up Mariajose Espinoza MD Any documentation recorded by the scribe accurately reflects the service I personally performed and the decisions made by myself, Mariajose Espinoza MD. I have confirmed and edited as necessary the relevant ophthalmic history, ROS, and the neuro exam findings as obtained by others. I have seen and examined Shantellwill Rivera. I have discussed the case and the management of this patient's care with the Resident/Fellow, if applicable. I also have reviewed and agree with the assessment and plan as stated above and agree with all of its relevant components. ENDOCRINOLOGY VISIT Observed: 03/22/2018 Status: F Source: [facility] 12:25 PM [facility] REPOSITORY [facility] [address] [place] [address] OFFICE VISIT Date of Service: 03/21/18 MR#: [id number] Acct: [id number] Name: SHANTELL RIVEAR Rep #: [id number] : 1955 Provider: Mary Carrera NP Age/Sex: 62/F Location: [facility] [place] Status: Signed HPI History of present illness Shantell Rivera is a 62 year old female who presents for follow up of diabetes type 2. Diagnosed in 1998.DKA few months ago. . Pt continues on lantus 25 and meal insulin 3 units per meal. Brings her BG meter with readings noted average 150-250. Notes she has only checked one BG daily for this review period. Pt denies difficulty with injections or self monitoring of BG. Denies any signs of infection or irritation at site of injections. Reports taking insulin as directed At time of visit: -Pt denies symptoms of hypertensive emergency (CP,SOB,CARRASCO, or blurred vision) and hypotension(dizziness or lightheadedness) -Pt denies symptoms of hypoglycemia ( sweaty, confusion, anxiety, tremor, hunger, palpitations) and hyperglycemia ( polydipsia, polyuria) -Pt denies potential medication adverse effect. 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 Type: type 1, insulin-requiring Weight and fatigue symptoms: Denies snoring Cardiopulmonary symptoms: Denies chest pain at rest, dyspnea on exertion, lightheadedness or myalgias GI symptoms: Reports nausea/dyspepsia and vomiting; denies constipation or diarrhea Other symptoms: Denies blurry vision or change in vision Exam Const General: comfortable, no acute distress Nutritional Appearance: well nourished Orientation: oriented x3 HENMT Head: normal to inspection, atraumatic Ears: hearing grossly normal bilaterally Nose: no nasal discharge Mouth: oral mucosae normal, moist mucous membranes Teeth and gingiva: dentition normal Eyes General: appearance normal, both eyes and all related structures Eyelids: eyelids normal Conjunctivae: conjunctivae normal Sclera: sclerae normal Neck Neck: normal visual inspection, supple Neck mass: No Thyroid: thyroid normal Chest Chest palpation AND inspection: deferred Resp Effort AND Inspection: able to speak in complete sentences, normal respiratory effort, symmetric chest movement Auscultation: Bilateral: Clear to Auscultation Cardio Rate: regular rate Rhythm: regular rhythm Heart Sounds: S1 normal, S2 normal GI Inspection: normal to inspection Auscultation: normal bowel sounds Palpation: soft General: deferred Skin General: no rashes or lesions noted Wounds: no wounds Diabetic Foot Pulses: L dorsalis pedis pulse: normal, R dorsalis pedis pulse: normal Monofilament test: Left foot: normal, Right foot: normal Neuro General: gait normal Cognition: normal cognition Speech: speech normal Gait: normal gait Extrem General: normal exam except as noted, pedal edema Psych Appearance: well kempt Mood: congruent mood Affect: normal affect Thought Process: normal Thought Content: normal Judgment: judgment good Weight and fatigue symptoms: Denies snoring Cardiopulmonary symptoms: Denies chest pain at rest, dyspnea on exertion, lightheadedness or myalgias GI symptoms: Denies constipation, diarrhea, nausea/dyspepsia or vomiting Other symptoms: Denies blurry vision or change in vision Intake Vital Signs03/21/18 Height 5 ft 1 in 03/21/18 Weight: 151 lb 6 oz 03/21/18 Body Mass Index (BMI) 28.5 03/21/18 Blood Pressure 116/79 03/21/18 Blood Pressure Location Lt popliteal 03/21/18 Blood Pressure Position Sitting Intake Visit Reasons: Diabetes Mellitus Type 2 Director Life Required: No Accompanied by: Family / Other Is patient in pain?: No Allergies adhesive tape Allergy (Severe, Verified 03/21/18 09:56) Unknown codeine Allergy (Severe, Verified 03/21/18 09:56) Unknown Medications blood sugar diagnostic strips See Dose Instructions .ROUTE .MEDSUPPLY #20 ea 12/15/17 [History Confirmed 03/21/18] insulin detemir (U-100) 100 unit/mL (3 mL) subcutaneous pen 25 unit SC .q day ml 12/15/17 [History Confirmed 03/21/18] mirtazapine 15 mg tablet 15 mg PO QHS 12/15/17 [History Confirmed 03/21/18] insulin lispro (U-100) 100 unit/mL subcutaneous pen See Label Instructions SC TID #15 ml 03/21/18 [Rx Confirmed 03/21/18] Is last menstrual period known: No Post menopausal: Yes Patient : No Nurse's Note: blood sugars : low : 177 high : 394 PFS Medical History Back problem (Acute) Bone fracture (Acute) Cataracts, bilateral (Acute) Diabetes type 2, controlled (Acute) Pancreatitis (Acute) Status post ORIF of fracture of ankle (Acute) Vision problems (Acute) Surgical History Hx of appendectomy (Acute) Hx of cataract surgery (Acute) Hx of cholecystectomy (Acute) S/P partial hysterectomy (Acute) Family History Mother Diabetes Father Heart disease Hypertension Social History Smoking Status: Never smoker second hand exposure: No alcohol intake: never substance use type: does not use ROS Const Constitutional: No anorexia, body ache, chills, fatigue, fever(s), frequent falls, decreased energy, malaise, night sweats, weakness, weight change, sleep problems, abnormal sleep pattern, change in appetite, other, headache(s), snoring or excessive sweating Eyes Eyes: No blurry vision, change in vision, double vision, discharge, dry eyes, bulging eyes, floaters, visual disturbances, eye pain, light sensitivity, spots in vision, tunnel vision or other ENT ENT: No abnormal hearing, ear pain, ear discharge, ear pressure, hearing loss, tinnitus, dizziness/vertigo, balance problems, nosebleed/epistaxis, nasal congestion, nasal obstruction, nose pain, sinus pressure, sinus pain, nasal discharge, post nasal drip, headache(s), facial pain, dental pain, dry mouth, bad breath, hoarseness, lip swelling, mouth lesions, mouth pain, sore throat, tongue swelling, throat swelling, other, difficulty swallowing or neck pain Resp Respiratory: No cough, change in phlegm color, chest congestion, excessive phlegm production, hemoptysis, pain on inspiration, shortness of breath, pain with cough, snoring, stridor, wheezing or other Cardio Cardiology: No chest pain at rest, chest pain with exertion, leg pain with exertion, excessive sweating, shortness of breath, dyspnea on exertion, generalized swelling, irregular heart rhythm, lightheadedness, orthopnea, radiating jaw, neck or arm pain, fast heart rate, slow heart rate, palpitations or other Gastro GI: No abdominal pain, belching, bloating, change in bowel habits, change in stool character, coffee ground emesis, constipation, cramping, diarrhea, heartburn, difficulty swallowing, feeling full early, excessive flatus, incontinent of stools, Vomiting blood/hematemesis, blood in stool, loose stools, Black,tarry stools, nausea/dyspepsia, pain with swallowing, vomiting or other Genitourinary-Female: No difficulty urinating, burning urination, painful urination, urinary incontinence, urinary frequency, urinary urgency, urinary hesitancy, urinary retention, blood in urine, Frequent nighttime urination/ nocturia, post void dribbling, suprapubic fullness, side pain, sexual problems, genital lesions, genital itching, hot flashes, abnormal periods, abnormal vaginal bleeding, absent period, painful periods, light periods, heavy periods, difficulty getting , painful intercourse, pelvic pain, vaginal dryness, vaginal odor, Vaginal Itching or other Musc Musculoskeletal: No abnormal walking, joint pain, back pain, deformity, joint swelling, limited range of motion, loss of height, muscle cramps, muscle weakness, decreased muscle mass, body aches, neck pain, numbness, radiating pain into limb, stiffness, tingling or other Skin Skin: No acne, hair loss, change in hair, nail changes, boil, change in skin color, dry skin, redness, excessive hair growth, yellowing of the skin, lesions, itching, rash, skin pain, skin ulcer, sores, skin swelling, wounds or other Breast Breast: No other Neuro Neurology: No frequent falls, weakness, visual disturbances, abnormal hearing, headache(s), abnormal walking, numbness or tingling Psych Psychiatric: No abnormal sleep pattern, No change in appetite Endo Endocrine: No fatigue, other or excessive sweating Aller/Imm Allergy/Immunologic: No lip swelling, tongue swelling, throat swelling, wheezing or itchy eyes Assessment AND Plan Problems 1. 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 Monitor BG carefully. 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, with long-term current use of insulin, macular edema presence unspecified, unspecified proliferative retinopathy type E11.3593; E11.65; Z79.4 Diabetes mellitus complication status: with ophthalmic complications Diabetes mellitus jail insulin use: with jail use Diabetes mellitus complication detail: with diabetic retinopathy Proliferative retinopathy type: unspecified Laterality: bilateral Diabetic retinopathy severity: with proliferative retinopathy Diabetes mellitus macular edema: macular edema presence unspecified Time Spent (min) 30 03/22/18 1225 <Electronically signed by Mary DAVID> Date Mary DAVID Cosigner Signature: Date (if applicable) CC: MICROALB:CREAT Collected: 03/21/2018 Status: F Source: [facility] [facility] 10:37 AM [facility] REPOSITORY TYPE CODE TESTS RESULT OUT OF RANGE REFERENCE UNITS LAB L501.1200 NO RANGE EST. mg/dL Normal UR CREAT 121.00 LAB L502.0500 NO RANGE EST. mg/L Normal 63.4 MICROALBUMIN ,UR LAB L502.0600 <30 mg/g CRE mg/g CRE High 52.4 MALB:CREAT Performed By: #### L502.0250, L501.9985 #### [facility] [address] [place], [address] HEMOGLOBIN A1C Collected: 03/21/2018 Status: F Source: [facility] 10:37 AM [facility] REPOSITORY TYPE CODE TESTS RESULT OUT OF RANGE REFERENCE UNITS LAB L501.9985 4.2-6.3 % High HGB A1C 12.3 Performed By: #### L502.0250, L501.9985 #### [facility] [address] [place], [address] COMPREHENSIVE METABOLIC Collected: 03/21/2018 Status: F Source: [facility] 10:37 AM [facility] REPOSITORY TYPE CODE TESTS RESULT OUT OF RANGE REFERENCE UNITS LAB L501.0100 74-106 mg/dL High GLU 366 Result Comment: Glucose result greater than or equal to 200 mg/dL suggests DIABETES MELLITUS per A.D.A. criteria. Please note revised GLUCOSE reference range effective 2017. LAB L501.1000 7-18 mg/dL Normal BUN 13 LAB L501.1100 0.55-1.02 mg/dL Normal CREAT,SERUM 0.84 Result Comment: The validity of the calculated GFR AND GFRAA in patients over 70 years has not been determined. Clinical correlation is essential. LAB L501.1110 >60 mL/min Normal EST GFR 72 Result Comment: Non- GFR Calc LAB L501.1115 >60 mL/min Normal EST GFR - AA 87 Result Comment: GFR Calc LAB L501.1300 10-20 RATIO Normal BUN/CRE 15.4 LAB L501.1500 6.4-8.2 g/dL T Normal PROT 8.0 LAB L501.1800 3.2-5.0 g/dL Normal ALB 3.5 LAB L501.1950 2.2-4.2 g/dL High GLOB 4.5 LAB L501.2000 0.9-2.4 RATIO Low A/G 0.8 LAB L501.2200 8.5-10.1 mg/dL CA Normal 9.1 LAB L501.4100 15-37 U/L Normal AST 23 Result Comment: Slight Hemolysis, Result may be falsely increased. LAB L501.4305 45-117 U/L Normal ALK P 109 LAB L501.4405 13-56 U/L Normal ALT 23 LAB L501.4600 0.20-1.00 mg/dL Normal T BILI 0.20 LAB L501.5300 136-145 mmol/L Low NA 134 LAB L501.5600 3.5-5.1 mmol/L Normal K 4.2 Result Comment: Slight Hemolysis, Result may be falsely increased. LAB L501.5900 98-107 mmol/L Low CL 96 LAB L501.6100 21.0-32.0 mmol/L Normal CO2 31.0 LAB L501.6200 5-15 Normal GAP 7 Performed By: #### L500.4050, L500.4100 #### [facility] [address] [place], [place], [id number] LIPID PROFILE Collected: 03/21/2018 Status: F Source: [place] 10:37 AM [facility] REPOSITORY TYPE CODE TESTS RESULT OUT OF RANGE REFERENCE UNITS LAB L501.4900 200 mg/dL High CHOL 225 Result Comment: <200 mg/dL Desirable 200-240 mg/dL Borderline >240 mg/dL High Risk LAB L501.5000 mg/dL High TRIG 434 Result Comment: The drugs N-Acetylcysteine and Metamizole may falsely depress this assay. TRIGLYCERIDE IS GREATER THAN 400 mg/dL. LDL RESULT IS INVALID AND WILL NOT BE REPORTED. Serum Triglycerides Reference Interval Normal <150 mg/dL Borderline high 150 - 199 mg/dL High 200 - 499 mg/dL Very High > or = 500 mg/dL LAB L501.6400 mg/dL Low HDL 35 Result Comment: The drugs N-Acetylcysteine and Metamizole may falsely depress this assay. Reference Range HDL <40 mg/dL Low HDL Cholesterol HDL >or= 60 mg/dL High HDL Cholesterol LAB L501.6500 0-130 mg/dL Test Normal not performed LDL LAB L501.6600 5-40 mg/dL Test Normal not performed VLDL Performed By: #### L500.4050, L500.4100 #### [facility] [address] 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, with long-term current use of insulin (HCC) (primary encounter diagnosis) Comment: macular edema both eyes (left eye > right eye ) - right eye: s/p Avastin x 5 (01/14/2017) AND s/p Eylea x 9 (01/20/2018) - Left eye: s/p Avastin x 8 (12/03/2016) AND s/p focal laser x 1 (01/14/2017) AND s/p Eylea x 9 (01/20/2018) - here for dilated fundus exam and Eylea both eyes today and follow up 4-6 weeks for Eylea both eyes - may benefit from peripheral panretinal laser photocoagulation 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 [facility] response Z96.1. Pseudophakia Both eyes - Right eye (12-03-2015) -Left eye (11-11-2015) Follow up Mariajose Espinoza MD Any documentation recorded by the scribe accurately reflects the service I personally performed and the decisions made by myself, Mariajose Espinoza MD. I have confirmed and edited as necessary the relevant ophthalmic history, ROS, and the neuro exam findings as obtained by others. I have seen and examined Shantell Rivera. I have discussed the case and the management of this patient's care with the Resident/Fellow, if applicable. I also have reviewed and agree with the assessment and plan as stated above and agree with all of its relevant components. 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, with long-term current use of insulin (HCC) (primary encounter diagnosis) Comment: macular edema both eyes (left eye > right eye ) - right eye: s/p Avastin x 5 (01/14/2017) AND s/p Eylea x 8 (10/27/2017) - Left eye: s/p Avastin x 8 (12/03/2016) AND s/p focal laser x 1 (01/14/2017) AND s/p Eylea x 8 (10/27/2017) - repeat Eylea both eyes today and follow up 4-6 weeks for Eylea both eyes with dilated fundus exam both eyes - may benefit from peripheral panretinal laser photocoagulation 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 [facility] response Z96.1. Pseudophakia Both eyes - Right eye (12-03-2015) -Left eye (11-11-2015) Follow up Mariajose Espinoza MD Any documentation recorded by the scribe accurately reflects the service I personally performed and the decisions made by myself, Mariajose Espinoza MD. I have confirmed and edited as necessary the relevant ophthalmic history, ROS, and the neuro exam findings as obtained by others. I have seen and examined Shantell Rivera. I have discussed the case and the management of this patient's care with the Resident/Fellow, if applicable. I also have reviewed and agree with the assessment and plan as stated above and agree with all of its relevant components. ENDOCRINOLOGY VISIT Observed: 12/19/2017 Status: F Source: [place] REPORT 2:00 PM [facility] REPOSITORY [facility] [address] [place], [place] [address]. [address] [place] [address] OFFICE VISIT Date of Service: 12/19/17 MR#: [id number] Acct: [id number] Name: SHANTELL RIVERA Rep #: [id number] : 1955 Provider: Mary Carrera NP Age/Sex: 62/F Location: [facility] [place] Status: Signed HPI History of present illness Shantell Rivera is a 62 year old female who presents for follow up of diabetes type 1. Diagnosed in 1998. Is here for follow up of DKA. Reports she was ill for several days and then went to ER. BG at time of admission over 600. Pt states she received fluids and was discharged at day 2. A1c at time of admission was over 12. Pt did not notify office of illness. Pt continues on lantus 25 and meal insulin 3 units per meal. Brings her BG meter with readings noted 110-250. Notes she has only checked one BG daily for this review period. Pt denies difficulty with injections or self monitoring of BG. Denies any signs of infection or irritation at site of injections. Reports taking insulin as directed At time of visit: -Pt denies symptoms of hypertensive emergency (CP,SOB,CARRASCO, or blurred vision) and hypotension(dizziness or lightheadedness) -Pt denies symptoms of hypoglycemia ( sweaty, confusion, anxiety, tremor, hunger, palpitations) and hyperglycemia ( polydipsia, polyuria) -Pt denies potential medication adverse effect. 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 Type: type 1, insulin-requiring Weight and fatigue symptoms: Denies snoring Cardiopulmonary symptoms: Denies chest pain at rest, dyspnea on exertion, lightheadedness or myalgias GI symptoms: Reports nausea/dyspepsia and vomiting; denies constipation or diarrhea Other symptoms: Denies blurry vision or change in vision Exam Const General: comfortable, no acute distress Nutritional Appearance: well nourished Orientation: oriented x3 HENMT Head: normal to inspection, atraumatic Ears: hearing grossly normal bilaterally Nose: no nasal discharge Mouth: oral mucosae normal, moist mucous membranes Teeth and gingiva: dentition normal Eyes General: appearance normal, both eyes and all related structures Eyelids: eyelids normal Conjunctivae: conjunctivae normal Sclera: sclerae normal Neck Neck: normal visual inspection, supple Neck mass: No Thyroid: thyroid normal Chest Chest palpation AND inspection: deferred Resp Effort AND Inspection: able to speak in complete sentences, normal respiratory effort, symmetric chest movement Auscultation: Bilateral: Clear to Auscultation Cardio Rate: regular rate Rhythm: regular rhythm Heart Sounds: S1 normal, S2 normal GI Inspection: normal to inspection Auscultation: normal bowel sounds Palpation: soft General: deferred Skin General: no rashes or lesions noted Wounds: no wounds Diabetic Foot Pulses: L dorsalis pedis pulse: normal, R dorsalis pedis pulse: normal Monofilament test: Left foot: normal, Right foot: normal Neuro General: gait normal Cognition: normal cognition Speech: speech normal Gait: normal gait Extrem General: normal exam except as noted, pedal edema Psych Appearance: well kempt Mood: congruent mood Affect: normal affect Thought Process: normal Thought Content: normal Judgment: judgment good Intake Vital Signs12/19/17 Height 5 ft 1 in 12/19/17 Weight: 149 lb 12/19/17 Body Mass Index (BMI) 28.1 12/19/17 Blood Pressure 115/78 12/19/17 Blood Pressure Location Lt popliteal 12/19/17 Blood Pressure Position Sitting Intake Visit Reasons: diabetes type 2 Director Life Required: No Accompanied by: Is patient in pain?: No Allergies adhesive tape Allergy (Severe, Verified 12/19/17 10:51) Unknown codeine Allergy (Severe, Verified 12/19/17 10:51) Unknown Medications blood sugar diagnostic strips See Dose Instructions .ROUTE .MEDSUPPLY #20 ea 12/15/17 [History Confirmed 12/19/17] insulin detemir 100 unit/mL (3 mL) subcutaneous pen 25 unit SC .q day ml 12/15/17 [History Confirmed 12/19/17] insulin lispro 100 unit/mL subcutaneous pen See Label Instructions SC TID ml 12/15/17 [History Confirmed 12/19/17] mirtazapine 15 mg tablet 15 mg PO QHS 12/15/17 [History Confirmed 12/19/17] Is last menstrual period known: No Post menopausal: Yes Patient : No Nurse's Note: DIABETES TYPE 2 DX : 1998 LAST EXACERBATION : DKA : 12/15 HYPOGLYCEMIC EPISODE : NEVER ER VISIT : 12/15 BLOOD SUGARS : LOW : 111 HIGH : 668 PFSH Medical History Back problem (Acute) Bone fracture (Acute) Cataracts, bilateral (Acute) Diabetes type 2, controlled (Acute) Pancreatitis (Acute) Status post ORIF of fracture of ankle (Acute) Vision problems (Acute) Surgical History Hx of appendectomy (Acute) Hx of cataract surgery (Acute) Hx of cholecystectomy (Acute) S/P partial hysterectomy (Acute) Family History Mother Diabetes Father Heart disease Hypertension Social History Smoking Status: Never smoker second hand exposure: No alcohol intake: never substance use type: does not use ROS Const Constitutional: Positive for fatigue and change in appetite; no anorexia, body ache, chills, fever(s), frequent falls, decreased energy, malaise, night sweats, weakness, weight change, sleep problems, abnormal sleep pattern, other, headache(s), snoring or excessive sweating Eyes Eyes: No blurry vision, change in vision, double vision, discharge, dry eyes, bulging eyes, floaters, visual disturbances, eye pain, light sensitivity, spots in vision, tunnel vision or other ENT ENT: No abnormal hearing, ear pain, ear discharge, ear pressure, hearing loss, tinnitus, dizziness/vertigo, balance problems, nosebleed/epistaxis, nasal congestion, nasal obstruction, nose pain, sinus pressure, sinus pain, nasal discharge, post nasal drip, headache(s), facial pain, dental pain, dry mouth, bad breath, hoarseness, lip swelling, mouth lesions, mouth pain, sore throat, tongue swelling, throat swelling, other, difficulty swallowing or neck pain Resp Respiratory: No cough, change in phlegm color, chest congestion, excessive phlegm production, hemoptysis, pain on inspiration, shortness of breath, pain with cough, snoring, stridor, wheezing or other Cardio Cardiology: No chest pain at rest, chest pain with exertion, leg pain with exertion, excessive sweating, shortness of breath, dyspnea on exertion, generalized swelling, irregular heart rhythm, lightheadedness, orthopnea, radiating jaw, neck or arm pain, fast heart rate, slow heart rate, palpitations or other Gastro GI: Positive for nausea/dyspepsia and vomiting; no abdominal pain, belching, bloating, change in bowel habits, change in stool character, coffee ground emesis, constipation, cramping, diarrhea, heartburn, difficulty swallowing, feeling full early, excessive flatus, incontinent of stools, Vomiting blood/hematemesis, blood in stool, loose stools, Black,tarry stools, pain with swallowing or other Genitourinary-Female: No difficulty urinating, burning urination, painful urination, urinary incontinence, urinary frequency, urinary urgency, urinary hesitancy, urinary retention, blood in urine, Frequent nighttime urination/ nocturia, post void dribbling, suprapubic fullness, side pain, sexual problems, genital lesions, genital itching, hot flashes, abnormal periods, abnormal vaginal bleeding, absent period, painful periods, light periods, heavy periods, difficulty getting , painful intercourse, pelvic pain, vaginal dryness, vaginal odor, Vaginal Itching or other Musc Musculoskeletal: No abnormal walking, joint pain, back pain, deformity, joint swelling, limited range of motion, loss of height, muscle cramps, muscle weakness, decreased muscle mass, body aches, neck pain, numbness, radiating pain into limb, stiffness, tingling or other Neuro Neurology: No frequent falls, weakness, visual disturbances, abnormal hearing, headache(s), abnormal walking, numbness or tingling Psych Psychiatric: No abnormal sleep pattern, Positive for change in appetite Endo Endocrine: Positive for fatigue; no other or excessive sweating Aller/Imm Allergy/Immunologic: No lip swelling, tongue swelling, throat swelling or wheezing Assessment AND Plan Problems 1. Uncontrolled type 1 diabetes mellitus with hyperglycemia E10.65 Plan Pt has varied BG readings from 110-250 range. She feels low if BG below 130 therefore she treats as low. Enc to check Bg in pairs so that we can make any needed adjustments. Reports some days she has not been eating as well as her appetite is varied. Reports she is giving her lantus each day but does not always give her meal coverage if her BG is near 130 points. Enc to continue with prescribed medication. Ask to obtain copies of [place] labs from hospital stay. RTC 3 months 1. Please schedule follow up in 3 months. 2. Lab work one week before appointment. 3. Discussed importance of regular exercise and recommend starting or continuing a regular exercise program for good health. 4. The patient was encouraged to lose weight for good health 5. The importance of monitoring blood sugar regularly was reviewed. 6. The importance of monitoring the HBA1c level regularly was reviewed. 7. The importance of proper foot care and regularly checking feet to prevent sores and loss of limbs was reviewed. 8. The importance of keeping BP at or below 130/80 to prevent stroke, heart attacks, kidney failure, blindness was reviewed. Spent approximately 40 minutes with patient with over 50% of time spent in discussion and counseling regarding medication adjustment, symptoms and treatment of hypoglycemia, diet adherence, and checking BG before driving. Coding Level of Care Code Off vis,est,level 4 Diagnoses Uncontrolled type 1 diabetes mellitus with hyperglycemia E10.65 Diabetes mellitus complication status: with hyperglycemia Time Spent (min) 40 12/19/17 1400 <Electronically signed by Mary DAVID> Date Mary DAVID Cosigner Signature: Date (if applicable) CC: GLUCOSE POC Collected: 12/06/2017 Status: F Source: [place] 4:22 PM [facility] REPOSITORY TYPE CODE TESTS RESULT OUT OF REFERENCE UNITS RANGE LAB [id number](LO 70-99 mg/dL INC) High Glucose POC 208 Performed By: #### [id number] #### JOHN POC Subsection [address] [place] [address] GLUCOSE POC Collected: 12/06/2017 Status: F Source: BAHAI 11:26 AM [facility] REPOSITORY TYPE CODE TESTS RESULT OUT OF REFERENCE UNITS RANGE LAB [id number](LO 70-99 mg/dL INC) High Glucose POC 276 Performed By: #### [id number] #### JOHN POC Subsection [facility] [place] [address] GLUCOSE POC Collected: 12/06/2017 Status: F Source: BAHAI 7:11 AM [facility] REPOSITORY TYPE CODE TESTS RESULT OUT OF REFERENCE UNITS RANGE LAB [id number](LO 70-99 mg/dL INC) High Glucose POC 270 Performed By: #### [id number] #### JOHN POC Subsection [facility] [place] [address] CBC W/ AUTO DIFF Collected: 12/06/2017 Status: F Source: BAHAI 5:46 AM [facility] REPOSITORY TYPE CODE TESTS RESULT OUT OF RANGE REFERENCE UNITS LAB [id number](L 3.6-11.0 E3/mcL OINC) High WBC 12.0 LAB 73658808(L 3.90-5.40 E6/mcL OINC) Normal RBC 4.05 LAB 02659286(L 12.0-16.0 G/DL OINC) Low Hgb 11.4 LAB 80536405(L 36.0-48.0 % OINC) Low Hct 33.8 LAB 29214596(L 11.5-14.5 % OINC) Normal RDW 13.0 LAB 46934754(L 27.0-31.0 pg OINC) Normal MCH 28.2 LAB 37794111(L 33.0-37.0 G/DL OINC) Normal MCHC 33.7 LAB [id number](L 78.0-100.0 fL OINC) Normal MCV 83.5 LAB 42033441(L 7.4-11.0 fL OINC) Normal MPV 8.8 LAB 89983218(L 130-400 E3/mcL OINC) Normal Platelet 239 Performed By: #### [id number] #### JOHN LeHemwilliam [address] [place] [address] AUTO DIFF Collected: 12/06/2017 Status: F Source: BAHAI 5:46 AM [facility] REPOSITORY Order Comment: Order Added by Discern Expert. TYPE CODE TESTS RESULT OUT OF RANGE REFERENCE UNITS LAB [id number](L 37.0-75.0 % OINC) High Neutro Auto 79.3 LAB 61339797(L 20.0-55.0 % OINC) Low Lymph Auto 14.9 LAB 34956094(L 0.0-10.0 % OINC) Normal Kerr Auto 5.2 LAB 27320530(L 0.0-11.0 % OINC) Normal Eos Auto 0.1 LAB 05741959(L 0.0-2.0 % OINC) Normal Basophil Auto 0.5 LAB 66396699(L 1.4-6.5 E3/mcL OINC) High Neutro 9.5 Absolute LAB 13091736(L 1.2-3.4 E3/mcL OINC) Normal Lymph Absolute 1.8 LAB 64106933(L 0.0-0.7 E3/mcL OINC) Normal Kerr Absolute 0.6 LAB 96274797(L 0.0-0.7 E3/mcL OINC) Normal Eos Absolute 0.0 LAB 37197435(L 0.0-0.2 E3/mcL OINC) Normal Basophil 0.1 Absolute Performed By: #### [id number] #### JOHN LeHemo [address] [id number] BMP Collected: 12/06/2017 Status: F Source: BAHAI 5:46 AM [facility] REPOSITORY TYPE CODE TESTS RESULT OUT OF RANGE REFERENCE UNITS LAB [id number](L 70-99 mg/dL OINC) High Glucose Lvl 250 LAB 81833928(L 8.4-10.2 mg/dL OINC) Low Calcium Lvl 8.1 LAB 41623754(L 136-145 mEq/L OINC) Low Sodium Lvl 135 LAB 44004275(L 3.5-5.1 mEq/L OINC) Low Potassium Lvl 3.1 LAB 08285040(L 98-107 mEq/L OINC) Chloride Normal 100 LAB 89035624(L 24.0-30.0 mEq/L OINC) Low CO2 23.9 LAB 93276630(L 7-18 mg/dL OINC) BUN Normal 13 LAB 2675029(LO 0.6-1.3 mg/dL INC) Low Creatinine 0.5 LAB 62246368(L 5.4-30.0 ratio OINC) Normal BUN/Creat Ratio 26.0 Performed By: #### [id number] #### JOHN [employer] [facility] [place] [address] EGFR Collected: 12/06/2017 Status: F Source: BAHAI 5:46 AM [facility] REPOSITORY Order Comment: Order added by Discern Expert. TYPE CODE TESTS RESULT OUT OF RANGE REFERENCE UNITS LAB 65840480(LO mL/min/1.73 INC) m2 Normal eGFR >60 LAB 98861011(LO mL/min/1.73 INC) m2 Normal eGFR AA >60 Performed By: #### [id number] #### JOHN [employer] [address] [place] [address] HGBA1C Collected: 12/06/2017 Status: F Source: BAHAI 5:46 AM [facility] REPOSITORY TYPE CODE TESTS RESULT OUT OF REFERENCE UNITS RANGE LAB [id number]( 4.0-6.3 % LOINC) High Hemoglobin A1c 12.9 Performed By: #### [id number] #### JOHN Chemistry Manual Subsection [facility] [place] [address] GLUCOSE POC Collected: 12/05/2017 Status: F Source: BAHAI 8:54 PM [facility] REPOSITORY TYPE CODE TESTS RESULT OUT OF REFERENCE UNITS RANGE LAB 17573427(LO 70-99 mg/dL INC) High Glucose POC 224 Performed By: #### [id number] #### JOHN POC Subsection [facility] [place] [address] BMP Collected: 12/05/2017 Status: F Source: BAHAI 6:55 PM [facility] REPOSITORY TYPE CODE TESTS RESULT OUT OF RANGE REFERENCE UNITS LAB [id number](L 70-99 mg/dL OINC) High Glucose Lvl 232 LAB 39542004(L 8.4-10.2 mg/dL OINC) Low Calcium Lvl 7.5 LAB 13351800(L 136-145 mEq/L OINC) Low Sodium Lvl 133 LAB 55176779(L 3.5-5.1 mEq/L OINC) Low Potassium Lvl 3.0 LAB 66152966(L 98-107 mEq/L OINC) Chloride Normal 101 LAB 41983378(L 24.0-30.0 mEq/L OINC) Low CO2 23.9 LAB 86076567(L 7-18 mg/dL OINC) BUN Normal 16 LAB 3182931(LO 0.6-1.3 mg/dL INC) Low Creatinine 0.5 LAB 37747297(L 5.4-30.0 ratio OINC) High BUN/Creat Ratio 32.0 Performed By: #### [id number] #### JOHN [employer] [address] [place] [address] EGFR Collected: 12/05/2017 Status: F Source: BA[place]I 6:55 PM [facility] REPOSITORY Order Comment: Order added by Discern Expert. TYPE CODE TESTS RESULT OUT OF RANGE REFERENCE UNITS LAB [id number](LO mL/min/1.73 INC) m2 Normal eGFR >60 LAB 37751984(LO mL/min/1.73 INC) m2 Normal eGFR AA >60 Performed By: #### [id number] #### JOHN [employer] [facility] [place] [address] GLUCOSE POC Collected: 12/05/2017 Status: F Source: [place] 4:56 PM [facility] REPOSITORY TYPE CODE TESTS RESULT OUT OF REFERENCE UNITS RANGE LAB [id number](LO 70-99 mg/dL INC) High Glucose POC 224 Performed By: #### [id number] #### JOHN POC Subsection [facility] [place] [address] BMP Collected: 12/05/2017 Status: F Source: BA[place]I 3:38 PM [facility] REPOSITORY TYPE CODE TESTS RESULT OUT OF RANGE REFERENCE UNITS LAB 25384312(L 70-99 mg/dL OINC) High Glucose Lvl 232 LAB 30412087(L 7-18 mg/dL OINC) High BUN 19 LAB 0449143(LO 0.6-1.3 mg/dL INC) Low Creatinine 0.5 LAB 66161443(L 5.4-30.0 ratio OINC) High BUN/Creat Ratio 38.0 LAB 62786883(L 8.4-10.2 mg/dL OINC) Low Calcium Lvl 7.3 LAB 93451815(L 136-145 mEq/L OINC) Low Sodium Lvl 131 LAB 70028754(L 3.5-5.1 mEq/L OINC) Low Potassium Lvl 2.9 LAB 89479552(L 98-107 mEq/L OINC) Chloride Normal 103 LAB 83294190(L 24.0-30.0 mEq/L OINC) Low CO2 22.5 Performed By: #### [id number] #### JOHN [employer] [facility] [place] [address] EGFR Collected: 12/05/2017 Status: F Source: [place] 3:38 PM [facility] REPOSITORY Order Comment: Order added by Discern Expert. TYPE CODE TESTS RESULT OUT OF RANGE REFERENCE UNITS LAB 80141469(LO mL/min/1.73 INC) m2 Normal eGFR >60 LAB 58914174(LO mL/min/1.73 INC) m2 Normal eGFR AA >60 Performed By: #### [id number] #### JOHN [employer] [address] [place] [address] GLUCOSE POC Collected: 12/05/2017 Status: F Source: [place]I 3:10 PM [facility] REPOSITORY TYPE CODE TESTS RESULT OUT OF REFERENCE UNITS RANGE LAB 32469123(LO 70-99 mg/dL INC) High Glucose POC 253 Performed By: #### [id number] #### JOHN POC Subsection [address] [place] [address] BOHB Collected: 12/05/2017 Status: F Source: BAHAI 2:32 PM [facility] REPOSITORY TYPE CODE TESTS RESULT OUT OF RANGE REFERENCE UNITS LAB [id number](LO 0.02-0.27 mmol/L INC) High Beta HB 3.61 Qnt Performed By: #### [id number] #### JOHN [employer] [address] [place] [address] GLUCOSE POC Collected: 12/05/2017 Status: F Source: BAHAI 1:58 PM [facility] REPOSITORY TYPE CODE TESTS RESULT OUT OF REFERENCE UNITS RANGE LAB 15643213(LO 70-99 mg/dL INC) High Glucose POC 238 Performed By: #### [id number] #### JOHN POC Subsection [address] [place] [address] GLUCOSE POC Collected: 12/05/2017 Status: F Source: BA[place]I 12:59 PM [facility] REPOSITORY TYPE CODE TESTS RESULT OUT OF REFERENCE UNITS RANGE LAB 60411564(LO 70-99 mg/dL INC) High Glucose POC 259 Performed By: #### [id number] #### JOHN POC Subsection [address] [place] [address] GLUCOSE POC Collected: 12/05/2017 Status: F Source: [place]I 12:01 PM [facility] REPOSITORY TYPE CODE TESTS RESULT OUT OF REFERENCE UNITS RANGE LAB [id number](LO 70-99 mg/dL INC) High Glucose POC 282 Performed By: #### [id number] #### JOHN POC Subsection [address] [place] [address] GLUCOSE POC Collected: 12/05/2017 Status: F Source: [place]I 10:50 AM [facility] REPOSITORY TYPE CODE TESTS RESULT OUT OF REFERENCE UNITS RANGE LAB 65544802(LO 70-99 mg/dL INC) High Glucose POC 279 Performed By: #### [id number] #### JOHN POC Subsection [address] [place] [address] GLUCOSE POC Collected: 12/05/2017 Status: F Source: BAHAI 9:51 AM [facility] REPOSITORY TYPE CODE TESTS RESULT OUT OF REFERENCE UNITS RANGE LAB [id number](LO 70-99 mg/dL INC) High Glucose POC 287 Performed By: #### [id number] #### JOHN POC Subsection [address] [place] [address] GLUCOSE POC Collected: 12/05/2017 Status: F Source: BAHAI 8:47 AM [facility] REPOSITORY TYPE CODE TESTS RESULT OUT OF REFERENCE UNITS RANGE LAB [id number](LO 70-99 mg/dL INC) High Glucose POC 303 Performed By: #### [id number] #### JOHN POC Subsection [address] [place] [address] GLUCOSE POC Collected: 12/05/2017 Status: F Source: [place]I 7:52 AM [facility] REPOSITORY TYPE CODE TESTS RESULT OUT OF REFERENCE UNITS RANGE LAB [id number](LO 70-99 mg/dL INC) High Glucose POC 293 Performed By: #### [id number] #### JOHN POC Subsection [address] [place] [address] GLUCOSE POC Collected: 12/05/2017 Status: F Source: BAHAI 6:39 AM [facility] REPOSITORY TYPE CODE TESTS RESULT OUT OF REFERENCE UNITS RANGE LAB [id number](LO 70-99 mg/dL INC) High Glucose POC 337 Performed By: #### [id number] #### JOHN POC Subsection [address] [place] [address] PH BLOOD POC Collected: 12/05/2017 Status: F Source: BAHAI 6:16 AM [facility] REPOSITORY TYPE CODE TESTS RESULT OUT OF RANGE REFERENCE UNITS LAB 81163884(LO INC) Normal pH POC 7.34 Performed By: #### [id number] #### JOHN POC Subsection [address] [place] [address] BMP Collected: 12/05/2017 Status: F Source: BAHAI 6:05 AM [facility] REPOSITORY TYPE CODE TESTS RESULT OUT OF RANGE REFERENCE UNITS LAB [id number](L 70-99 mg/dL OINC) High Glucose Lvl 263 LAB 13087985(L 7-18 mg/dL OINC) High BUN 31 LAB 3928714(LO 0.6-1.3 mg/dL INC) Normal Creatinine 0.8 LAB 93986225(L 5.4-30.0 ratio OINC) High BUN/Creat Ratio 38.8 LAB 00637766(L 8.4-10.2 mg/dL OINC) Low Calcium Lvl 7.4 LAB 00863442(L 136-145 mEq/L OINC) Sodium Normal Lvl 137 LAB 25125775(L 3.5-5.1 mEq/L OINC) Normal Potassium Lvl 3.6 LAB 68869982(L 98-107 mEq/L OINC) Chloride Normal 106 LAB [id number](L 24.0-30.0 mEq/L OINC) Low CO2 20.4 Performed By: #### [id number] #### JOHN [employer] [address] [place] [address] EGFR Collected: 12/05/2017 Status: F Source: BAHAI 6:05 AM [facility] REPOSITORY Order Comment: Order added by Discern Expert. TYPE CODE TESTS RESULT OUT OF RANGE REFERENCE UNITS LAB [id number](LO mL/min/1.73 INC) m2 Normal eGFR >60 LAB 12446607(LO mL/min/1.73 INC) m2 Normal eGFR AA >60 Performed By: #### [id number] #### JOHN [employer] [facility] [place] [address] MAGNESIUM Collected: 12/05/2017 Status: F Source: BAHAI 6:05 AM [facility] REPOSITORY TYPE CODE TESTS RESULT OUT OF REFERENCE UNITS RANGE LAB 67189807(L 1.7-2.8 mg/dL OINC) Low Magnesium 1.6 Performed By: #### [id number] #### JOHN [employer] [address] [place] [address] PH BLOOD POC ORDER Collected: 12/05/2017 Status: F Source: BAHAI 6:05 AM [facility] REPOSITORY TYPE CODE TESTS RESULT OUT OF RANGE REFERENCE UNITS LAB CD:[id number](LOINC) Normal pH Collected Blood POC Order Performed By: #### [id number] #### JOHN POC Subsection [address] [place] [address] GLUCOSE POC Collected: 12/05/2017 Status: F Source: BAHAI 5:39 AM [facility] REPOSITORY TYPE CODE TESTS RESULT OUT OF REFERENCE UNITS RANGE LAB 17668809(LO 70-99 mg/dL INC) High Glucose POC 288 Performed By: #### [id number] #### JOHN POC Subsection [address] [place] [address] GLUCOSE POC Collected: 12/05/2017 Status: F Source: [place]I 4:36 AM [facility] REPOSITORY TYPE CODE TESTS RESULT OUT OF REFERENCE UNITS RANGE LAB [id number](LO 70-99 mg/dL INC) High Glucose POC 361 Performed By: #### [id number] #### JOHN POC Subsection [address] [place] [address] GLUCOSE POC Collected: 12/05/2017 Status: F Source: [place]HAI 3:34 AM [facility] REPOSITORY TYPE CODE TESTS RESULT OUT OF REFERENCE UNITS RANGE LAB [id number](LO 70-99 mg/dL INC) High Glucose POC 380 Performed By: #### [id number] #### JOHN POC Subsection [address] [place] [address] PH BLOOD POC Collected: 12/05/2017 Status: F Source: [place]I 3:20 AM [facility] REPOSITORY TYPE CODE TESTS RESULT OUT OF RANGE REFERENCE UNITS LAB 45076020(LO INC) Normal pH POC 7.29 Performed By: #### [id number] #### JOHN POC Subsection [address] [place] [address] UA COMPLETE Collected: 12/05/2017 Status: F Source: [place]HAI 3:11 AM [facility] REPOSITORY TYPE CODE TESTS RESULT OUT OF RANGE REFERENCE UNITS LAB 73950825( Yellow LOINC) Normal UA Color Straw LAB 98985592( Clear LOINC) Normal UA Clarity Clear LAB 45378783( Negative LOINC) UA Glucose Abnormal 3+ LAB 12322037( Negative LOINC) Normal UA Bili Negative LAB 87333022( Negative LOINC) UA Ketones Abnormal 2+ LAB 49957061( 1.003-1.030 LOINC) Normal UA Spec Grav 1.020 LAB 47800645( 4.6-8.0 LOINC) Normal UA pH 5.0 LAB 65791721( Negative LOINC) Normal UA Protein Negative LAB 76903625( mg/dL LOINC) Normal UA Urobilinogen Negative LAB 55920828( Negative LOINC) Normal UA Nitrite Negative LAB 76498147( Negative LOINC) Normal UA Blood Negative LAB 55426124( Negative LOINC) Normal UA Leuk Est Negative LAB 30910878( 0-3 /HPF LOINC) Normal UA RBC 0-3 LAB 59158005( 0-5 /HPF LOINC) Normal UA WBC 0-5 LAB 84820847( 0-2 /LPF LOINC) UA Hyal Abnormal Cast 3-5 LAB 06224923( 0-5 /HPF LOINC) Normal UA Squam Epithelial 0-5 LAB 55308453( None /HPF LOINC) UA Bacteria Abnormal Trace LAB 77794905( Trace /LPF LOINC) UA Mucous Abnormal Trace Performed By: #### [id number] #### JOHN Urinalysis Automated Subsection [address] [place] [address] PH BLOOD POC ORDER Collected: 12/05/2017 Status: F Source: [place]I 2:52 AM [facility] REPOSITORY TYPE CODE TESTS RESULT OUT OF RANGE REFERENCE UNITS LAB CD:[id number] 643(LOINC) Normal pH Collected Blood POC Order Performed By: #### [id number] #### JOHN POC Subsection [facility] [place] [address] BMP Collected: 12/05/2017 Status: F Source: [place]HAI 2:52 AM [facility] REPOSITORY TYPE CODE TESTS RESULT OUT OF RANGE REFERENCE UNITS LAB 76408938(L 70-99 mg/dL OIHI) Abnormal Alert Glucose Lvl 429 Result Comment: Critical Result GLU: Called to: JULIO GUTHRIE at: 03:29:44 by:LATRICIA Read back by:JULIO GUTHRIE\reanalyzed for verification LAB 86207740(LOINC) 7-18 mg/dL BUN High 34 LAB 7272400(LOINC) 0.6-1.3 mg/dL Normal Creatinine 1.1 LAB 66082765(LOINC) 5.4-30.0 ratio High BUN/Creat Ratio 30.9 LAB 38341717(LOINC) 8.4-10.2 mg/dL Calcium Normal Lvl 8.4 LAB 25633495(LOINC) 136-145 mEq/L Sodium Normal Lvl 140 LAB 98861998(LOINC) 3.5-5.1 mEq/L Low Potassium Lvl 3.0 LAB 77742213(LOINC) 98-107 mEq/L Chloride Normal 101 LAB 61405773(LOINC) 24.0-30.0 mEq/L Low CO2 17.1 Performed By: #### [id number] #### JOHN [employer] [address] [place] [address] EGFR Collected: 12/05/2017 Status: F Source: BAHAI 2:52 AM [facility] REPOSITORY Order Comment: Order added by Discern Expert. TYPE CODE TESTS RESULT OUT OF RANGE REFERENCE UNITS LAB 98556524(LO mL/min/1.73 INC) m2 Normal eGFR 50 LAB 93023115(LO mL/min/1.73 INC) m2 Normal eGFR AA >60 Performed By: #### [id number] #### JOHN [employer] [address] [place] [address] GLUCOSE POC Collected: 12/05/2017 Status: F Source: BAHAI 2:26 AM [facility] REPOSITORY TYPE CODE TESTS RESULT OUT OF RANGE REFERENCE UNITS LAB 33474325(L 70-99 mg/dL OINC) Abnormal Alert Glucose POC 415 Performed By: #### [id number] #### JOHN POC Subsection [address] [place] [address] PH BLOOD POC Collected: 12/05/2017 Status: F Source: BAHAI 12:56 AM [facility] REPOSITORY TYPE CODE TESTS RESULT OUT OF RANGE REFERENCE UNITS LAB 35636989(LO INC) Normal pH POC 7.27 Performed By: #### [id number] #### JOHN POC Subsection [address] [place] [address] CT ABDOMEN/PELVIS W/O Observed: 12/05/2017 Status: F Source: [place]HAI CONTRAST 12:50 AM [facility] REPOSITORY Exam Date/Time: 12/05/2017 01:03 EST Reason for Exam: Pain Report CT ABDOMEN AND PELVIS WITHOUT CONTRAST, 12/05/2017: CLINICAL INDICATION: Vomiting and diarrhea. COMPARISON: None. TECHNIQUE: Nonenhanced axial CT imaging of the abdomen and pelvis was performed with sagittal and coronal reconstructions. Sagittal and coronal reconstructions are provided. Dose reduction techniques were achieved by using automated exposure control and/or adjustment of mA and/or kV according to patient size and/or use of iterative reconstruction technique. FINDINGS: CT ABDOMEN: The lung bases and pleural spaces are clear. There is diffuse hepatic steatosis. The patient is status post cholecystectomy likely accounting for mild extrahepatic biliary ductal dilatation. There is moderate atrophy of the pancreas. The spleen shows calcified granulomatous disease but is otherwise unremarkable. The adrenal glands and kidneys are unremarkable allowing for the lack of contrast enhancement. There is moderate wall thickening in the lower esophagus measuring 6 mm in diameter. A small hiatal hernia is noted. The nonenhanced stomach and small bowel are otherwise unremarkable. CT PELVIS: A normal appendix is seen on image 98. The pelvic small bowel loops and urinary bladder are unremarkable. The patient is status post hysterectomy. The ovaries are not visualized. A normal volume of stool and gas is seen in the largely decompressed colon. No inflammatory fat stranding, free fluid, loculated fluid or free air is seen in the abdomen or pelvis. Prominent degenerative disc disease and posterior endplate spurring result in moderate spinal stenosis at L3-L4. Multilevel degenerative change is noted in the lumbar spine without acute osseous abnormality or suspicious bony lesion. IMPRESSION: 1. Moderate wall thickening in the distal esophagus, nonspecific. This could reflect esophagitis or mass. Clinical correlation is recommended. No other Exam Date/Time: 12/05/2017 01:03 EST Report potential cause of the patient's gastrointestinal symptoms is seen. 2. Small hiatal hernia. 3. Hepatic steatosis. 4. Status post cholecystectomy likely accounting for mild extrahepatic biliary ductal dilatation. 5. No urinary tract calculi. 6. Status post hysterectomy. FINAL REPORT Dictated: 12/05/2017 1:41 am Edis Leach MD Signed (Electronic Signature): 12/05/2017 1:41 am Signed by: Edis Leach MD Technologist: JUNE PH BLOOD POC ORDER Collected: 12/05/2017 Status: F Source: BAHAI 12:25 AM [facility] REPOSITORY TYPE CODE TESTS RESULT OUT OF RANGE REFERENCE UNITS LAB CD:[id number](LOINC) Normal pH Collected Blood POC Order Performed By: #### [id number] #### JOHN POC Subsection [address] [place] [address] HEP FUNC PANEL Collected: 12/05/2017 Status: F Source: BAHAI 12:17 AM [facility] REPOSITORY TYPE CODE TESTS RESULT OUT OF RANGE REFERENCE UNITS LAB [id number](L 10-40 Int._Unit/L OINC) Normal ALT 28 LAB 76509654(L 10-42 Int._Unit/L OINC) Normal AST 26 LAB 91630391(L 3.2-5.0 G/DL OINC) Normal Albumin Lvl 4.4 LAB 97250583(L 2.0-4.0 G/DL OINC) High Globulin 4.1 LAB 83741566(L 1.1-1.9 ratio OINC) Normal A/G Ratio 1.1 LAB 99269456(L 42-121 Int._Unit/L OINC) Normal Alk Phos 86 LAB 52537563(L .00-.20 mg/dL OINC) Normal Bili Direct .13 LAB 00778218(L OINC) Normal Bili Indirect 2.4 Result Comment: No established ranges available for the Indirect Biliruben. LAB 91948584(LOINC) 0.2-1.0 mg/dL High Bili Total 2.5 LAB 13507126(LOINC) 6.4-8.3 G/DL High Total Protein 8.5 Performed By: #### [id number] #### JOHN [employer] [facility] [place] [address] LIPASE LEVEL Collected: 12/05/2017 Status: F Source: BAHAI 12:17 AM [facility] REPOSITORY TYPE CODE TESTS RESULT OUT OF RANGE REFERENCE UNITS LAB 96375046(LO 8-57 U/L INC) Normal Lipase Lvl 17 Performed By: #### [id number] #### JOHN [employer] [address] [place] [address] BMP Collected: 12/05/2017 Status: F Source: BAHAI 12:17 [facility] REPOSITORY TYPE CODE TESTS RESULT OUT OF RANGE REFERENCE UNITS LAB 46666118(L 70-99 mg/dL OINC) Abnormal Alert Glucose Lvl 662 Result Comment: Critical Result GLU: Called to: LESTER GIBSON at: 00:35:56 by:SHEDAVI Read back by:LESTER GIBSON\reanalyzed for verification\Critical Result GLU: Called to: LESTER GIBSON at: 00:38:55 by:SYSTEM Read back by:LESTER GIBSON LAB 48105108(LOINC) 7-18 mg/dL BUN High 35 LAB 3742466(LOINC) 0.6-1.3 mg/dL High Creatinine 1.4 LAB 62809948(LOINC) 5.4-30.0 ratio Normal BUN/Creat Ratio 25.0 LAB 02955529(LOINC) 8.4-10.2 mg/dL Calcium Normal Lvl 9.4 LAB 63549571([facility]) 136-145 mEq/L Low Sodium Lvl 131 LAB 20617942(INC) 3.5-5.1 mEq/L Normal Potassium Lvl 3.6 LAB 66654344([facility]) 98-107 mEq/L Low Chloride 83 LAB 25968046([facility]) 24.0-30.0 mEq/L Low CO2 16.6 Performed By: #### [id number] #### JOHN [employer] [facility] [place] [address] EGFR Collected: 12/05/2017 Status: F Source: BAHAI 12:17 AM [facility] REPOSITORY Order Comment: Order added by Discern Expert. TYPE CODE TESTS RESULT OUT OF RANGE REFERENCE UNITS LAB 24517288(LO mL/min/1.73 INC) m2 Normal eGFR 38 LAB 11081578(LO mL/min/1.73 INC) m2 Normal eGFR AA 46 Performed By: #### [id number] #### JOHN [employer] [address] [place] [address] CBC W/ AUTO DIFF Collected: 12/05/2017 Status: F Source: BAHAI 12:17 AM [facility] REPOSITORY TYPE CODE TESTS RESULT OUT OF RANGE REFERENCE UNITS LAB 53178051(L 3.6-11.0 E3/mcL OINC) High WBC 15.3 LAB 38602625(L 3.90-5.40 E6/mcL OINC) High RBC 5.47 LAB 96524658(L 12.0-16.0 G/DL OINC) Normal Hgb 15.5 LAB 10573217(L 36.0-48.0 % OINC) Normal Hct 47.7 LAB 96498674(L 11.5-14.5 % OINC) Normal RDW 13.0 LAB 55217501(L 27.0-31.0 pg OINC) Normal MCH 28.3 LAB 46764456(L 33.0-37.0 G/DL OINC) Low MCHC 32.4 LAB 04840249(L 78.0-100.0 fL OINC) Normal MCV 87.3 LAB 12362365(L 7.4-11.0 fL OINC) Normal MPV 9.6 LAB 91185539(L 130-400 E3/mcL OINC) Normal Platelet 339 Performed By: #### [id number] #### JOHN Rem[employer] [address] [place] [address] MANUAL DIFF Collected: 12/05/2017 Status: F Source: [place] 12:17 AM [facility] REPOSITORY Order Comment: Order Added by Discern Expert. TYPE CODE TESTS RESULT OUT OF RANGE REFERENCE UNITS LAB [id number](L 37-75 % OINC) High Segs Man 83 LAB 89196392(L 0-1 OINC) High Band Man 7 LAB 43055129(L 14-48 % OINC) Low Lymph Man 8 LAB 76300669(L 1-11 % OINC) Normal Monocyte Man 2 LAB 78855122(L 0-5 % OINC) Normal Eos Man 0 LAB 51047260(L 0-1 % OINC) Normal Basophil Man 0 LAB 53140422(L OINC) Normal RBC Morph NORMAL Performed By: #### [id number] #### JOHN RemHemo [address] [place] [address] ZZPLT MORPH Collected: 12/05/2017 Status: F Source: BAHAI 12:17 AM [facility] REPOSITORY TYPE CODE TESTS RESULT OUT OF RANGE REFERENCE UNITS LAB 88999328(L OINC) Normal Platelet NORMAL Estimate LAB [id number](L OINC) Normal Platelet Morph NORMAL Performed By: #### [id number] #### [facility] RemHemo [address] [place] [address] .MANUAL ABS Collected: 12/05/2017 Status: F Source: BAHAI 12:17 AM [facility] REPOSITORY Order Comment: Order Added by Discern Expert. TYPE CODE TESTS RESULT OUT OF RANGE REFERENCE UNITS LAB [id number](L 1.4-6.5 10x3/ OINC) High Segs Abs Man 12.7 LAB [id number](L 1.2-3.4 10x3/ OINC) Normal Lymph Abs Man 1.2 LAB [id number](L 0.0-0.7 10x3/ OINC) Normal Kerr Abs Man 0.3 LAB [id number](L 0.0-0.5 10x3/ OINC) Normal Eos Abs Man 0.0 LAB [id number](L 0.0-0.2 10x3/ OINC) Normal Basophil Abs 0.0 Man Performed By: #### [id number] #### JOHN RemHemo [address] [place] [address] ALLERGIES ALLERGIES DATE TYPE / CODE NAME / CODE REACTION SEVERITY SOURCE 10/23/2018 Drug codeine/G01892 Unknown [place] Allergy/360839391(S 1550(RXNORM) [facility] NOMED CT) Hospital Repository 10/23/2018 Drug adhesive Unknown [place] Allergy/791662075(S tape/[id number] [facility] NOMED CT) 4(RXNORM) Hospital Repository 12/15/2016 Chemical/842214707( ADHESIVE TAPE RASH [facility] [place] SNOMED CT) (ROSINS) [facility] [place] Repository 04/18/2012 DRUG CODEINE OTHER: SEE C Med [place] INGREDI/363033830([facility] NOMED CT) [place] Repository 04/18/2012 DRUG CODEINE UNKNOWN [place] INGREDI/287863375([facility] NOMED CT) [place] Repository Drug/533581858(SNOM codeine Rash Moderate Islam ED CT) [facility] Repository Miscellaneous Tape Rash Mild Islam Allergy/497700287([facility] NOMED CT) System Repository ENCOUNTERS ENCOUNTERS ADMIT/DISCHARGE ACCOUNT ADMITTING ENCOUNTER LOCATION SOURCE NUMBER CLASS 11/09/2018/11/13/20 [id number] Ambulatory [address] Repository 10/30/2018 [id number] [facility] ing:US Repository 10/23/2018/10/23/20 [id number] Ambulatory BMSBuilding:B Kam [facility] Repository 10/23/2018 [id number] Ambulatory [facility] ing:LAB Repository 10/05/2018/10/06/20 [id number] Ambulatory [address] Repository 08/10/2018/08/15/20 [id number] Ambulatory [address] Repository 07/24/2018 [id number] Ambulatory [facility] ing:LAB Repository 07/24/2018/07/24/20 [id number] Ambulatory BMSBuilding:B [place] 18 [facility] Repository 07/06/2018/07/11/20 [id number] Ambulatory [address] Repository 05/25/2018/05/26/20 [id number] Ambulatory [address] Repository 04/20/2018/04/21/20 [id number] Ambulatory [address] Repository 03/21/2018 [id number] Ambulatory Kam [facility] ing:LAB Repository 03/21/2018/03/21/20 [id number] Ambulatory BMSBuilding:B [place] 18 [facility] Repository 03/09/2018/03/14/20 [id number] Ambulatory [address] Repository 01/20/2018/01/23/20 [id number] Ambulatory [address] Repository 12/19/2017/12/19/19 [id number] Ambulatory BMSBuilding:B Kam 18 [facility] Repository 12/15/2017 [id number] Ambulatory BMSBuilding:B [place] [facility] Repository 12/04/2017/12/06/19 [id number] [place], [address] ing:.[facility] oom: 0331Bed: Repository 01 PAYERS PAYERS ENCOUNTER GUARANTOR PAYER SUBSCRIBER SOURCE 10/30/2018 SHANTELL W Primary SHANTELL W Kam [id number] SR Insurance:MEDICARE ARMSTRONGDOB: [address] A BPolicy [id number] [address]Hfb: Number: Repository [id number] (HP) Date:2018-10-23 10/30/2018 Secondary SHANTELL W Kam Insurance:ANTHEMPolic ARMSTRONGDOB: Community y Number: [id number] Hospital [id number] Repository Date:2342-80-78NM[address] [address]DX: 10/30/2018 Tertiary NOT GIVENUNK [place] Insurance:SELF PAY [facility] Number: Effective Repository Date:2018-10-23 10/23/2018 SHANTELL W Primary SHANTELL W [place] [id number] SR Insurance:MEDICARE ARMSTRONGDOB: Community [address] [place] [address], PART A [facility] [id number] Medical Center [address]Yoc: Number: Repository [id number] (HP) Date:2018-07-24 10/23/2018 Secondary SHANTELL W [place] Insurance:ANTHEMPolic ARMSTRONGDOB: Community y Number: [id number] Hospital [id number] Repository Date:3151-63-32OQ [address], [place] [address]AE: 10/23/2018 Tertiary NOT GIVENUNK Kam Insurance:SELF PAY [facility] Number: Effective Repository Date:2018-10-23 10/23/2018 SHANTELL W Primary SHANTELL W [place] [id number] SR Insurance:MEDICARE ARMSTRONGDOB: [address], PART A [facility] [id number] Medical Center [address]Ibp: Number: Repository [id number] (HP) Date:2018-10-23 10/23/2018 Secondary SHANTELL W [place] Insurance:ANTHEMPolic ARMSTRONGDOB: Community y Number: [id number] Hospital [id number] Repository Date:9915-44-19HC [address], [place] [address]WU: 10/23/2018 Tertiary NOT GIVENUNK Kam Insurance:SELF PAY [facility] Number: Effective Repository Date:2018-10-23 07/24/2018 SHANTELL W Primary SHANTELL W Kam [id number] SR Insurance:MEDICARE ARMSTRONGDOB: [address], PART A [facility] [id number] Medical Center [address]Mip: Number: Repository [id number] (HP) Date:2018-07-24 07/24/2018 Secondary SHANTELL W [place] Insurance:ANTHEMPolic ARMSTRONGDOB: Community y Number: [id number] Hospital [id number] Repository Date:1772-01-64VM [address]RQMXLFXSAMMY MARLEY [address]BG: 07/24/2018 Tertiary NOT GIVENUNK [place] Insurance:SELF PAY [facility]: Effective Repository Date:2018-07-24 07/24/2018 SHANTELL Matthews Primary SHANETLL W [place] [id number] SR Insurance:MEDICARE ARMSTRONGDOB: Community [address] [place] [address], PART A BPolicy [id number] [place] [address]Xmr: Number: Repository [id number] (HP) Date:2018-07-10 07/24/2018 Secondary SHANTELL W [place] Insurance:ANTHEMPolic ARMSTRONGDOB: Community y Number: [id number] Hospital [id number] Repository Date:9319-00-29PT [address], [place] [address]UV: 07/24/2018 Tertiary NOT GIVENUNK [place] Insurance:SELF PAY [facility] Number: Effective Repository Date:2018-07-24 03/21/2018 SHANTELL W Primary SHANTELL W [place] [id number] SR Insurance:ANTHEMPolic ARMSTRONGDOB: Community [address] [place] [address], y Number: [id number] Medical Center [address]Emf: [id number] Repository Date:3216-10-44BF [address] () [address], [place] [address]KM: 03/21/2018 Secondary NOT GIVENUNK Kam Insurance:SELF PAY [facility] Number: Effective Repository Date:2018-03-21 03/21/2018 SHANTELL W Primary SHANTELL W [place] [id number] Insurance:ANTHEMPolic ARMSTRONGDOB: Community [address] y Number: [id number], [id number] Repository [place] [address]Yns: Date:1431-45-05AI [address]CYGUYQASAMMY MARLEY () [address]CC: 03/21/2018 Secondary NOT GIVENUNK [place] Insurance:SELF PAY [facility] Number: Effective Repository Date:2018-03-21 12/19/2017 SHANTELL Matthews Primary SHANTELL Matthews [place] [id number] Insurance:ANTHEMPolic ARMSTRONGDOB: Community [address] y Number: [id number], [id number] [place]ository [place] [address]Xir: Date:7061-14-63EP [address] SAMMY ZIMMER () [address]IN: 12/19/2017 Secondary NOT GIVENUNK [place] Insurance:SELF PAY [facility] Number: Effective Repository Date:2017-12-14 12/15/2017 Shantell Matthews Primary Shantell Matthews [place] [id number] Insurance:ANTHEMPolic ArmstrongDOB: [facility] [address] y Number: [id number] [id number] [place]ository [place] [address]Hty: Date:9051-44-22VT [address]MNEQSQVSAMMY MARLEY () [address]HH: 12/15/2017 Secondary NOT GIVENUNK Kam Insurance:SELF PAY [facility] Number: Effective Repository Date:2017-12-15 12/04/2017 SHANTELL Matthews Primary SHANTELL [facility] ARMSTRONGDOB: Insurance:ANTHEMPolic ARMSTRONGDOB: [facility] [id number] y Number: Effective [id number] System [address] Date:2017-12-04 [address] Repository [address] [place] [address] 1428-23-35Tcdw[address] [place] [address] [id number]: Name:Robles Castaneda SAMI [place] [id number]: SAMMY ZIMMER (HP)Tel: [phone]: [phone] (HP) (WP) [phone] (WP)
== END ==
PROVIDERS: Referring Provider Nurse Practitioner; Visit Provider Nurse Practitioner
DX: R13.10 Dysphagia, unspecified (principal); R53.82 Chronic fatigue, unspecified; R53.81 Other malaise
CPT/HCPCS: 76536

== ENCOUNTER → 2019-01-22 13:22 | Outpatient (CLI) | payer MEDICARE, BC, SELFPAY ==
[2019-01-22 12:52] VITALS: BMI 28.0
[2019-01-22 15:25] LABS: ALB/GLOB Ratio 0.8 RATIO (0.9-2.4); AST(SGOT) 21 U/L (15-37); Alanine Aminotransfer ALT/SGPT 20 U/L (13-56); Albumin, Serum 3.4 g/dL (3.2-5.0); Alkaline Phosphatase 97 U/L (45-117); Anion Gap 11 (5-15); BUN 17 mg/dL (7-18); BUN/Creat Ratio 22.5 RATIO (10-20); Calcium,Total 8.9 mg/dL (8.5-10.1); Chloride 96 mmol/L (98-107); Creatinine, Serum 0.76 mg/dL (0.55-1.02); EST Glomerular Filtration Rate 82 mL/min (>60); Est Glom Filt Rate - Afr Amer 99 mL/min (>60); Globulin 4.5 g/dL (2.2-4.2); Glucose 261 mg/dL (74-106); Potassium 3.5 mmol/L (3.5-5.1); Protein, Total 7.9 g/dL (6.4-8.2); Sodium Level 137 mmol/L (136-145)
[2019-01-22 15:27] LABS: Hemoglobin A1c 12.1 % (4.2-6.3)
== END ==
PROVIDERS: Referring Provider Nurse Practitioner; Visit Provider Nurse Practitioner
DX: E11.69 Type 2 diabetes mellitus with other specified complication (principal); E11.65 Type 2 diabetes mellitus with hyperglycemia; E78.5 Hyperlipidemia, unspecified
CPT/HCPCS: 36415; 80053; 83036

== ENCOUNTER → 2019-04-11 11:30 | Outpatient (CLI) | payer MEDICARE, BC, SELFPAY ==
[2019-01-22 12:52] VITALS: BMI 28.0
[2019-04-11 14:24] LABS: Hematocrit 38.6 % (37-47); Hemoglobin 12.9 g/dl (12.0-15.0); Mean Corp Hgb Conc 33.4 g/gl (32-36); Mean Corpuscular Hgb 27.8 pg (27.0-32.0); Mean Corpuscular Volume 83.2 fL (81-99); Mean Platelet Vol. 10.1 fl (6.2-12.0); Platelet Count 258 K/mm3 (150-450); RBC Distribution Width CV 12.6 % (11.6-14.6); Red Blood Count 4.64 M/mm3 (4.2-5.4); White Blood Count 6.3 K/mm3 (4.4-11.0)
[2019-04-11 14:29] LABS: Scan Indicated on CBC? Y/N NO
[2019-04-11 14:54] LABS: ALB/GLOB Ratio 0.8 RATIO (0.9-2.4); AST(SGOT) 16 U/L (15-37); Alanine Aminotransfer ALT/SGPT 22 U/L (13-56); Albumin, Serum 3.4 g/dL (3.2-5.0); Alkaline Phosphatase 86 U/L (45-117); Anion Gap 7 (5-15); BUN 10 mg/dL (7-18); BUN/Creat Ratio 11.6 RATIO (10-20); CRP 4.53 mg/L (0.0-3.0); Calcium,Total 9.3 mg/dL (8.5-10.1); Chloride 100 mmol/L (98-107); Creatinine, Serum 0.86 mg/dL (0.55-1.02); EST Glomerular Filtration Rate 70 mL/min (>60); Est Glom Filt Rate - Afr Amer 85 mL/min (>60); Globulin 4.2 g/dL (2.2-4.2); Glucose 377 mg/dL (74-106); Potassium 3.7 mmol/L (3.5-5.1); Protein, Total 7.6 g/dL (6.4-8.2); Sodium Level 138 mmol/L (136-145)
[2019-04-12 16:07] LABS: Endomysial Antibody IgA Negative (Negative)
[2019-04-13 09:56] LABS: Deamidated Gliadin IgA 3 units (0-19); Deamidated Gliadin IgG 4 units (0-19); Immunoglobulin A 254 mg/dL (87-352); t-Transglutaminase IgA <2 U/mL (0-3)
== END ==
PROVIDERS: Referring Provider Internal Medicine Gastroenterology; Visit Provider Internal Medicine Gastroenterology
DX: R10.9 Unspecified abdominal pain (principal); R19.7 Diarrhea, unspecified
CPT/HCPCS: 36415; 80053; 82784; 83516; 85027; 86140; 86255

== ENCOUNTER → 2019-04-17 08:04 | Outpatient (CLI) | payer MEDICARE, BC, SELFPAY ==
[2019-01-22 12:52] VITALS: BMI 28.0
--- NOTE | 2019-04-17 08:07 | RAD_ITS ---
STUDY: X-RAY - ESOPHAGUS (BARIUM SWALLOW) WITH FLUOROSCOPY REASON FOR EXAM: Female, 63 years old. Dysphasia. Gastroesophageal reflux. TECHNIQUE: 18 view(s) of the esophagus were obtained following swallowing of barium. FLUOROSCOPY TIME (if supplied): (0:58) minutes/seconds COMPARISON: None. FINDINGS: There is no demonstrated esophageal foreign body. There is no demonstrated stricture or mucosal abnormality. Normal gastroesophageal junction, without a demonstrated hiatal hernia. The patient ingested a 12 mm tablet of barium without any difficulty. There is atherosclerotic calcification of the aortic arch with tortuosity of the descending aorta. Normal visualized pulmonary parenchyma. Normal visualized osseous structures of the thorax. RAD/Esophagus Only IMPRESSION: Normal plain film x-ray examination (barium swallow) of the esophagus. Electronically Signed: Lee Montenegro, at 14:40 EDT , Service support ,
== END ==
PROVIDERS: Referring Provider Internal Medicine Gastroenterology; Visit Provider Internal Medicine Gastroenterology
DX: R13.10 Dysphagia, unspecified (principal)
CPT/HCPCS: 74220

== ENCOUNTER → 2019-05-03 | Outpatient (CLI) | payer MEDICARE, BC, SELFPAY ==
[2019-01-22 12:52] VITALS: BMI 28.0
[2019-05-03 17:23] LABS: Absolute Lymphocyte Count 2.35 X10^3/ul (0.83-4.51); Absolute Neutrophil Count 8.2 X10^3/uL (2.0-7.7); Basophil# 0.02 X10^3/uL; Basophil% 0.2 % (0-1); Eosinophil# 0.19 X10^3/uL; Eosinophils% 1.7 % (0-5); Hematocrit 37.9 % (37-47); Hemoglobin 12.6 g/dl (12.0-15.0); Lymphocyte # 2.35 X10^3/ul (4.0); Lymphocyte % 20.9 % (19-41); Mean Corp Hgb Conc 33.2 g/gl (32-36); Mean Corpuscular Hgb 28.3 pg (27.0-32.0); Mean Platelet Vol. 10.4 fl (6.2-12.0); Monocyte% 4.4 % (0-10); Neutrophil # 8.18 X10^3/uL (2.7-7.7); Neutrophil % 72.6 % (47-70); Platelet Count 266 K/mm3 (150-450); RBC Distribution Width CV 12.7 % (11.6-14.6); RBC Distribution Width SD 38.9 fl (35.1-43.9); Red Blood Count 4.46 M/mm3 (4.2-5.4); White Blood Count 11.3 K/mm3 (4.4-11.0)
[2019-05-03 17:24] LABS: POSITIVE COUNT NO; POSITIVE DIFFERENTIAL NO; POSITIVE MORPHOLOGY NO
[2019-05-03 17:58] LABS: Vitamin D,25 Hydroxy 18.6 ng/mL (29.95-100.01)
[2019-05-03 18:01] LABS: ALB/GLOB Ratio 0.8 RATIO (0.9-2.4); AST(SGOT) 17 U/L (15-37); Alanine Aminotransfer ALT/SGPT 22 U/L (13-56); Albumin, Serum 3.3 g/dL (3.2-5.0); Alkaline Phosphatase 102 U/L (45-117); Anion Gap 8 (5-15); BUN 14 mg/dL (7-18); BUN/Creat Ratio 17.5 RATIO (10-20); Calcium,Total 9.2 mg/dL (8.5-10.1); Chloride 99 mmol/L (98-107); EST Glomerular Filtration Rate 76 mL/min (>60); Est Glom Filt Rate - Afr Amer 92 mL/min (>60); Globulin 4.2 g/dL (2.2-4.2); Glucose 440 mg/dL (74-106); Protein, Total 7.5 g/dL (6.4-8.2); Sodium Level 136 mmol/L (136-145); Thyroid Stim Hormone (TSH) 0.71 uIU/mL (0.358-3.74)
[2019-05-06 12:12] LABS: Hep C Antibodies 0.3 s/co ratio (0.0-0.9)
== END | disposition home or self-care (01) ==
LOC: POLAB3 16:28
PROVIDERS: Visit Provider Family Medicine Geriatric Medicine
DX: E55.9 Vitamin D deficiency, unspecified (principal); R53.83 Other fatigue; Z13.89 Encounter for screening for other disorder
CPT/HCPCS: 36415; 80053; 82306; 84443; 85025; 86803

== ENCOUNTER → 2019-07-05 10:15 | Outpatient (CLI) | payer MEDICARE, BC, SELFPAY ==
[2019-01-22 12:52] VITALS: BMI 28.0
--- NOTE | 2019-07-05 10:18 | BI_ITS ---
MAMMOGRAPHY - BILATERAL SCREENING REASON FOR EXAM: Female, 64 years old. Routine annual screening examination. PERTINENT HISTORY: Non-contributory. TECHNIQUE: Digital bilateral breast joseluis (3D mammographic acquisition) in the CC and MLO projections. 2-D mediolateral oblique (MLO) and craniocaudad (CC) views of both breasts were obtained. CAD: Full Field Digital Mammography with Computer Added Detection was performed. COMPARISON: Comparison is made with prior examination September 22, 2016. FINDINGS: Breast Composition: The breasts are heterogeneously dense, which may obscure small masses. There are no dominant masses or suspicious calcifications. Stable appearance of the bilateral axillary lymph nodes. Stable scattered benign-appearing bilateral axillary lymph nodes. No other significant abnormalities are identified. There has been no significant change since the prior study. BI/SCREEN MAMM (CAD) W/JOSELUIS BILAT IMPRESSION: Stable bilateral screening mammogram. Yearly follow-up mammogram recommended. (A) ASSESSMENT CATEGORY: BIRADS Category 2: Benign. A letter regarding these results will be sent to the patient by the facility within 30 days. Approximately 10% of breast cancers are not detected by mammography. A normal mammogram should not delay biopsy of a clinically suspicious abnormality. [id number] Electronically Signed: Lee Montenegro, at 13:56 EDT , Service support ,
--- NOTE | 2019-07-05 10:22 | BD_ITS ---
STUDY: DUAL ENERGY X-RAY ABSORPTIOMETRY / DXA REASON FOR EXAM: Female, 64 years old. Early menopause. Loss of height. TECHNIQUE: Bone Mineral Density (BMD) measurements of lumbar spine and bilateral hips were obtained. COMPARISON: None. FINDINGS: Lumbar Spine (L1-L4): g/cm2 (1.293) / T-score (0.9) / Z-score (2.5) Findings are suggestive of normal bone density with a low fracture risk. Increased kyphosis. Left Femur Total: g/cm2 (0.889) / T-score (-0.9) / Z-score (0.3) Left Femoral Neck: g/cm2 (0.877) / T-score (-1.2) / Z-score (0.3) Right Femur Total: g/cm2 (0.845) / T-score (-1.3) / Z-score (0.0) Right Femoral Neck: g/cm2 (0.818) / T-score (-1.6) / Z-score (-0.1) BD/Dexa Bone Density Study IMPRESSION: The patient is considered osteopenic as outlined below according to World Imtiaz Organization (WHO) criteria with a moderate fracture risk. Reference Information: The T-score is the number of standard deviations above or below the standard which is normal for young adults at their peak bone mineral density. The World Health Organization (WHO) interprets the T-scores as follows: Above -1 Normal bone density Between -1 and -2.5 Osteopenia Equal to / or below -2.5 Osteoporosis As a practical clinical guideline, osteopenia may be graded as follows: Mild -1 through -1.5 Moderate -1.6 through -2.0 Severe -2.1 through -2.4 The Z-score is the number of standard deviations above or below age-matched controls. A Z-score of less than -1.5 would be considered abnormal. References: 1. NIH Osteoporosis and Related Bone Diseases http://www.osteo.org 2. International Society for Clinical Densitometry http://www.iscd.org 3. National Osteoporosis Foundation http://www.nof.org Electronically Signed: Lee Montenegro, at 9:46 EDT , Service support ,
== END ==
PROVIDERS: Family Provider Family Medicine Geriatric Medicine; PCP Family Medicine Geriatric Medicine; Referring Provider Family Medicine Geriatric Medicine; Visit Provider Family Medicine Geriatric Medicine
DX: Z12.31 Encounter for screening mammogram for malignant neoplasm of breast (principal); Z78.0 Asymptomatic menopausal state
CPT/HCPCS: 77063; 77067; 77080

== ENCOUNTER → 2019-11-02 08:37 | Outpatient (CLI) | payer MEDICARE, BC, SELFPAY ==
[2019-01-22 12:52] VITALS: BMI 28.0
[2019-11-02 11:45] LABS: Absolute Lymphocyte Count 2.48 X10^3/uL (0.83-4.51); Absolute Neutrophil Count 3.2 X10^3/uL (2.0-7.7); Basophil# 0.03 X10^3/uL; Basophil% 0.5 % (0-1); Eosinophil# 0.21 X10^3/uL; Eosinophils% 3.3 % (0-5); Hematocrit 33.2 % (37-47); Hemoglobin 10.5 g/dL (12.0-15.0); Lymphocyte # 2.48 X10^3/ul (4.0); Mean Corp Hgb Conc 31.6 g/dL (32-36); Mean Corpuscular Hgb 28.4 pg (27.0-32.0); Mean Corpuscular Volume 89.7 fL (81-99); Mean Platelet Vol. 10.6 fl (6.2-12.0); Monocyte# 0.47 X10^3/uL; Monocyte% 7.4 % (0-10); NRBC Flagged by Analyzer 0 % (0-5); Neutrophil # 3.16 X10^3/uL (2.7-7.7); Neutrophil % 49.6 % (47-70); Platelet Count 269 K/mm3 (150-450); RBC Distribution Width CV 12.7 % (11.6-14.6); RBC Distribution Width SD 41.4 fl (35.1-43.9); White Blood Count 6.4 K/mm3 (4.4-11.0)
[2019-11-02 12:00] LABS: Vitamin D,25 Hydroxy 24.2 ng/mL (29.95-100.01)
[2019-11-02 12:07] LABS: ALB/GLOB Ratio 0.9 RATIO (0.9-2.4); AST(SGOT) 16 U/L (15-37); Alanine Aminotransfer ALT/SGPT 23 U/L (13-56); Albumin, Serum 3.5 g/dL (3.2-5.0); Alkaline Phosphatase 87 U/L (45-117); Anion Gap 7 (5-15); BUN 17 mg/dL (7-18); Calcium,Total 9.8 mg/dL (8.5-10.1); Chloride 102 mmol/L (98-107); Creatinine, Serum 1.06 mg/dL (0.55-1.02); EST Glomerular Filtration Rate 55 mL/min (>60); Est Glom Filt Rate - Afr Amer 67 mL/min (>60); Globulin 4.1 g/dL (2.2-4.2); Glucose 135 mg/dL (74-106); Potassium 3.7 mmol/L (3.5-5.1); Protein, Total 7.6 g/dL (6.4-8.2); Sodium Level 139 mmol/L (136-145)
== END ==
PROVIDERS: Family Provider Family Medicine Geriatric Medicine; PCP Family Medicine Geriatric Medicine; Visit Provider Family Medicine Geriatric Medicine
DX: E11.65 Type 2 diabetes mellitus with hyperglycemia (principal); E55.9 Vitamin D deficiency, unspecified; R53.83 Other fatigue
CPT/HCPCS: 36415; 80053; 82306; 84443; 85025

== ENCOUNTER → 2019-11-16 09:15 | Outpatient (CLI) | payer MEDICARE, BC, SELFPAY ==
[2019-01-22 12:52] VITALS: BMI 28.0
[2019-11-16 12:30] LABS: Absolute Lymphocyte Count 2.33 X10^3/uL (0.83-4.51); Absolute Neutrophil Count 9.3 X10^3/uL (2.0-7.7); Basophil# 0.03 X10^3/uL; Basophil% 0.2 % (0-1); Eosinophil# 0.16 X10^3/uL; Eosinophils% 1.3 % (0-5); Hematocrit 32.9 % (37-47); Hemoglobin 10.4 g/dL (12.0-15.0); Lymphocyte # 2.33 X10^3/ul (4.0); Lymphocyte % 18.8 % (19-41); Mean Corp Hgb Conc 31.6 g/dL (32-36); Mean Corpuscular Hgb 28.6 pg (27.0-32.0); Mean Corpuscular Volume 90.4 fL (81-99); Mean Platelet Vol. 10.3 fl (6.2-12.0); Monocyte# 0.56 X10^3/uL; Monocyte% 4.5 % (0-10); NRBC Flagged by Analyzer 0 % (0-5); Neutrophil # 9.29 X10^3/uL (2.7-7.7); Neutrophil % 74.9 % (47-70); Platelet Count 334 K/mm3 (150-450); RBC Distribution Width CV 12.3 % (11.6-14.6); RBC Distribution Width SD 40.4 fl (35.1-43.9); Red Blood Count 3.64 M/mm3 (4.2-5.4); White Blood Count 12.4 K/mm3 (4.4-11.0)
[2019-11-16 12:52] LABS: Iron 62 ug/dL (50-170); Iron Binding Capacity,Total 341 ug/dL (250-450); PERCENT IRON SATURATION 18.2 % (15.0-55.0)
== END ==
PROVIDERS: Family Provider Family Medicine Geriatric Medicine; PCP Family Medicine Geriatric Medicine; Visit Provider Family Medicine Geriatric Medicine
DX: D50.9 Iron deficiency anemia, unspecified (principal)
CPT/HCPCS: 36415; 83540; 83550; 85025

== ENCOUNTER 2020-01-06 10:12 | Emergency (ER) | payer MEDICARE, BC, SELFPAY ==
[2019-01-22 12:52] VITALS: BMI 28.0
[2020-01-06 10:13] VITALS: BP 136/76; PULSE 96; RESP 15; TEMP 36.4; O2SAT 100; BMI 32.1
[2020-01-06 10:26] LABS: Bedside Glucose 152 mg/dL (70-110)
--- NOTE | 2020-01-06 10:36 | EKG12_ITS ---
Test Reason : NAUSEA Blood Pressure : / mmHG Vent. Rate : 094 BPM Atrial Rate : 094 BPM P-R Int : 202 ms QRS Dur : 116 ms QT Int : 390 ms P-R-T Axes : 048 -28 -14 degrees QTc Int : 487 ms Normal sinus rhythm Right bundle branch block Abnormal ECG Confirmed by ANKUSH GALLEGOS, LAN ([id number]), desk editor LORI RAMOS ([id number]) on 01/08/2020 8:00:41 AM Referred By: ONOFRE Confirmed By:LAN LECHUGA MD
--- NOTE | 2020-01-06 10:37 | RAD_ITS ---
STUDY: X-RAY CHEST REASON FOR EXAM: Female, 64 years old. COUGH TECHNIQUE: Frontal and lateral views COMPARISON: None. FINDINGS: The lungs are clear and expanded. There is no demonstrated pleural abnormality. Normal size heart. Normal mediastinum and jovanni. Normal visualized pulmonary arteries. Mildly calcified visualized aortic arch and descending thoracic aorta. Normal visualized thoracic spine. Normal visualized ribs, clavicles, and shoulders. There is no demonstrated abnormality of the visualized soft tissue structures of the upper abdomen. RAD/Chest PA and Lateral IMPRESSION: Normal x-ray examination of the chest. Electronically Signed: Bruno Murillo DO at 11:35 EST Tel [phone], Service support ,
--- NOTE | 2020-01-06 10:44 | NURSING ---
NO OLD EKGS
[2020-01-06] MEDS: Ondansetron 4 MG/2 ML Vial IV ×2 (10:45→13:00)
[2020-01-06 10:46] VITALS: BP 144/73; PULSE 95; RESP 17; RESP 18; TEMP 36.4; O2SAT 100; O2SAT 99
[2020-01-06 10:54] LABS: Absolute Lymphocyte Count 1.64 X10^3/uL (0.83-4.51); Absolute Neutrophil Count 13.1 X10^3/uL (2.0-7.7); Basophil# 0.03 X10^3/uL; Basophil% 0.2 % (0-1); Eosinophil# 0.01 X10^3/uL; Eosinophils% 0.1 % (0-5); Hematocrit 32.1 % (37-47); Hemoglobin 10.5 g/dL (12.0-15.0); Lymphocyte # 1.64 X10^3/ul (4.0); Lymphocyte % 10.3 % (19-41); Mean Corp Hgb Conc 32.7 g/dL (32-36); Mean Corpuscular Hgb 28.4 pg (27.0-32.0); Mean Corpuscular Volume 86.8 fL (81-99); Mean Platelet Vol. 10.2 fl (6.2-12.0); Monocyte% 6.3 % (0-10); NRBC Flagged by Analyzer 0 % (0-5); Neutrophil # 13.13 X10^3/uL (2.7-7.7); Neutrophil % 82.7 % (47-70); Platelet Count 293 K/mm3 (150-450); White Blood Count 15.9 K/mm3 (4.4-11.0)
[2020-01-06 11:12] LABS: ALB/GLOB Ratio 0.8 RATIO (0.9-2.4); AST(SGOT) 33 U/L (15-37); Alanine Aminotransfer ALT/SGPT 31 U/L (13-56); Albumin, Serum 3.4 g/dL (3.2-5.0); Alkaline Phosphatase 95 U/L (45-117); Anion Gap 8 (5-15); BUN 30 mg/dL (7-18); BUN/Creat Ratio 20.8 RATIO (10-20); Calcium,Total 9.6 mg/dL (8.5-10.1); Chloride 99 mmol/L (98-107); Creatinine, Serum 1.44 mg/dL (0.55-1.02); EST Glomerular Filtration Rate 39 mL/min (>60); Est Glom Filt Rate - Afr Amer 47 mL/min (>60); Globulin 4.2 g/dL (2.2-4.2); Glucose 213 mg/dL (74-106); Lipase 227 U/L (73-393); Potassium 3.7 mmol/L (3.5-5.1); Protein, Total 7.6 g/dL (6.4-8.2); Sodium Level 139 mmol/L (136-145)
[2020-01-06 11:36] VITALS: BP 120/59; PULSE 90; RESP 19; O2SAT 97
--- NOTE | 2020-01-06 11:41 | CT_ITS ---
STUDY: CT ABDOMEN AND PELVIS WITHOUT CONTRAST REASON FOR EXAM: Female, 64 years old. N/V,ABD PAIN RADIATION DOSAGE (If Supplied By Facility): CTDIvol = ( 14.68 ) mGy, DLP = ( 630.91 ) mGycm TECHNIQUE: Transaxial images were obtained from the dome of the diaphragm to the symphysis pubis without oral contrast, and without intravenous contrast. Sagittal and coronal images were reconstructed. Individualized dose optimization techniques were used for this CT. COMPARISON: None. FINDINGS: The visualized lung bases are unremarkable. The visualized portions of the heart are within normal limits. Normal liver. There are surgical clips in the gallbladder fossa consistent with a prior cholecystectomy. There are multiple benign calcified granulomata of the spleen. Normal pancreas. Normal bilateral adrenal glands. Normal right kidney. Normal left kidney. There is circumferential thickening of the visualized distal esophagus. Normal small intestine. Normal colon. The appendix is visualized and appears normal. There is diffuse atherosclerotic calcification of the abdominal aorta, without a demonstrated aneurysm. Normal inferior vena cava. Normal retroperitoneum. Normal urinary bladder. Normal abdominal wall. There are diffuse degenerative changes of the visualized lumbar spine. CT/Abdomen/Pelvis without Cont IMPRESSION: Thickening of the distal esophagus. Differential considerations are inflammatory, infectious and neoplastic disease. No bowel obstruction, colitis or diverticulitis. Cholecystectomy. Electronically Signed: Maribel Estrada MD at 12:31 EST Tel , Service support ,
[2020-01-06 12:55] VITALS: BP 109/57; PULSE 94; RESP 20; O2SAT 96
[2020-01-06] MEDS: Benzonatate 100 MG Capsule 200 MG PO (13:01)
[2020-01-06] MEDS: Mag Hydrox/Al Hydrox/Simeth 30 ML UDC PO (13:31)
[2020-01-06 14:40] LABS: Color, Urine Yellow (Yellow); Glucose, Dipstick 250 mg/dl (Normal); Ketone-Dipstick 15 mg/dl (Negative); Leukocyte Esterase-Dipstick 500 /ul (Negative); Nitrite-Dipstick Negative (Negative); Occult Blood-Urine 25 /ul (Negative); Protein-Dipstick 30 mg/dl (Negative); Specific Gravity, Urine 1.025 (1.002-1.030); Urine Bilirubin Dipstick Negative (Negative); Urine Clarity Cloudy (Clear); Urine Urobilinogen 1 mg/dl (Normal)
[2020-01-06 14:47] LABS: Bacteria 2+ /hpf (None Seen); Mucous, Urine RARE /hpf (<or=2+); Red Blood Cells-Urine 0-5 SEEN /hpf (0-5); Squamous Epithelial Cells - UA 10-25 SEEN /hpf (5-10); White Blood Cells 5-10 SEEN /hpf (0-5)
--- NOTE | 2020-01-06 14:54 | ED.DCSUM_ITS ---
- ER Visit Summary Date of Service: 01/06/20 Chief Complaint: Vomiting and abdominal pain History of Present Illness: The patient is a [address] Morel. She has a history of a hiatal hernia that she is seeing Dr. Alejandro for approximately 1 year ago. She reports that she had vomiting and upper abdominal pain for the past 3 days. States is an aching pain Zeta 10 at worst and 5-10 currently. Is worsened by drinking fluids. Is relieved by nothing. He says she is vomited 10-12 times. No blood in her emesis. No diarrhea. Her last bowel was today. No melena hematochezia. Patient also reports that she has had a nonproductive cough for the past 2 days. Patient denies any fever or chills. She denies any chest pain or shortness of breath. She does complain of generalized weakness. Physical Examination: Vitals: Stable. Afebrile. General: Well-nourished and well-developed. Head: Normocephalic atraumatic. Neck: Supple, no lymphadenopathy. No JVD. Nontender. Cardiovascular: Regular rate and rhythm. No murmurs. Respiratory: No respiratory distress. Clear to auscultation bilaterally. Abdominal: Soft, mild epigastric tenderness palpation, nondistended, normal bowel sounds. No guarding, rebound, or peritoneal signs. Back: Nontender. Extremities: Nontender, no edema. Skin: Normal color, no rash. Neurologic: Alert and oriented ?3. Cranial nerves II through XII are intact. Normal strength and sensation. Psych: Normal affect. Test Results: EKG is sinus at 94 with a right bundle branch block and nonspecific ST changes. There is no old EKG for comparison. Troponin is negative. UA has 5-10 white blood cells, but 10-25 epithelial cells. She is asymptomatic. No urinary complaints. LFTs are normal. Lipase is normal. Chem-7 is marked for glucose 213, BUN of 30, creatinine 1.44. CBC shows a white count of 15.9 with an H&H 10.5 and 32.1, segmented feels 83, lymphocytes of 10. Clinical Impression(s) from Imaging Studies Chest X-Ray 01/06/20 10:37 IMPRESSION: Normal x-ray examination of the chest. Electronically Signed: Bruno Murillo DO at 11:35 EST Tel [phone], Service support , Abdomen/Pelvis CT 01/06/20 11:41 IMPRESSION: Thickening of the distal esophagus. Differential considerations are inflammatory, infectious and neoplastic disease. No bowel obstruction, colitis or diverticulitis. Cholecystectomy. Electronically Signed: Maribel Estrada MD at 12:31 EST Tel , Service support , Emergency Department Course and Treatment: Patient refused pain medications. She was given Zofran and Protonix IV. She continued to complain of nausea. She was given a GI cocktail p.o. and feels much improved. Treatment Plan: Had prolonged discussion with the patient and her family. She does have a history of a hiatal hernia. She reports that she had endoscopy approximately a year ago. Approximately 2 months ago she stopped taking Protonix as her insurance would no longer cover this. States that she seems to have had a bit of a chronic cough and abdominal pain since that time. Patient will be discharged with Prilosec. Instructed to follow-up with her primary care physician in 2 days for another exam. Follow-up Dr. Alejandro soon as possible. Return to the emergency department for any worsening symptoms. Disposition: To home in improved and stable condition. Impression: 1. Esophagitis. This note was generated with Zinc software dictation software. It may contain incorrect words, spelling, and punctuation that were not noted in review of the chart prior to signing ED Disposition - Plan for ED Patient: Instructions: Esophagitis Prescriptions: Omeprazole [Prilosec] 40 mg PO DAILY #60 cap Prescription Printed Ondansetron [Zofran Odt] 4 mg PO Q8H PRN PRN #10 tab PRN Reason: Nausea Prescription Printed Referrals: Crow Morel Chi, MD [Primary Care Provider] - 2 Days Walter Alejandro MD [NON-STAFF] - As soon as possible
[2020-01-06 15:13] VITALS: BP 102/67; PULSE 88; RESP 14; RESP 17; O2SAT 99
== END 2020-01-06 15:17 | disposition home or self-care (01) ==
LOC: ED 10:53
PROVIDERS: Emergency Provider Emergency Medicine; PCP Family Medicine Geriatric Medicine
DX: K20.9 Esophagitis, unspecified (principal); I45.10 Unspecified right bundle-branch block; K44.9 Diaphragmatic hernia without obstruction or gangrene; E11.9 Type 2 diabetes mellitus without complications; R05 Cough; Z90.49 Acquired absence of other specified parts of digestive tract
CPT/HCPCS: 71046; 74176; 80053; 81001; 82962; 83690; 84484; 85025; 93005; 96374; 96376; 99285; J7030; J2405; J3490

== ENCOUNTER → 2020-06-10 16:10 | Outpatient (CLI) | payer MEDICARE, BC, SELFPAY ==
[2020-06-10 16:55] LABS: Absolute Lymphocyte Count 2.46 X10^3/uL (0.83-4.51); Absolute Neutrophil Count 3.7 X10^3/uL (2.0-7.7); Basophil# 0.02 X10^3/uL; Basophil% 0.3 % (0-1); Eosinophil# 0.16 X10^3/uL; Eosinophils% 2.3 % (0-5); Hematocrit 34.4 % (37-47); Hemoglobin 10.8 g/dL (12.0-15.0); Lymphocyte # 2.46 X10^3/ul (4.0); Lymphocyte % 35.8 % (19-41); Mean Corp Hgb Conc 31.4 g/dL (32-36); Mean Corpuscular Hgb 28.3 pg (27.0-32.0); Mean Corpuscular Volume 90.1 fL (81-99); Mean Platelet Vol. 10.5 fl (6.2-12.0); Monocyte# 0.54 X10^3/uL; Monocyte% 7.8 % (0-10); NRBC Flagged by Analyzer 0 % (0-5); Neutrophil # 3.68 X10^3/uL (2.7-7.7); Neutrophil % 53.5 % (47-70); Platelet Count 266 K/mm3 (150-450); RBC Distribution Width CV 13.1 % (11.6-14.6); RBC Distribution Width SD 42.8 fl (35.1-43.9); Red Blood Count 3.82 M/mm3 (4.2-5.4); White Blood Count 6.9 K/mm3 (4.4-11.0)
[2020-06-10 18:14] LABS: ALB/GLOB Ratio 0.9 RATIO (0.9-2.4); AST(SGOT) 17 U/L (15-37); Alanine Aminotransfer ALT/SGPT 21 U/L (13-56); Albumin, Serum 3.4 g/dL (3.2-5.0); Alkaline Phosphatase 122 U/L (45-117); Anion Gap 5 (5-15); BUN 19 mg/dL (7-18); BUN/Creat Ratio 17.6 RATIO (10-20); Calcium,Total 8.5 mg/dL (8.5-10.1); Chloride 105 mmol/L (98-107); Creatinine, Serum 1.08 mg/dL (0.55-1.02); EST Glomerular Filtration Rate 54 mL/min (>60); Est Glom Filt Rate - Afr Amer 65 mL/min (>60); Globulin 3.8 g/dL (2.2-4.2); Glucose 141 mg/dL (74-106); Potassium 4.2 mmol/L (3.5-5.1); Protein, Total 7.2 g/dL (6.4-8.2); Sodium Level 138 mmol/L (136-145); Thyroid Stim Hormone (TSH) 1.36 uIU/mL (0.358-3.74)
== END ==
PROVIDERS: PCP Family Medicine Geriatric Medicine; Visit Provider Family Medicine Geriatric Medicine
DX: E11.65 Type 2 diabetes mellitus with hyperglycemia (principal); E55.9 Vitamin D deficiency, unspecified; R53.83 Other fatigue
CPT/HCPCS: 36415; 80053; 82306; 84443; 85025

== ENCOUNTER → 2020-09-03 14:15 | Outpatient (CLI) | payer MEDICARE, BC, SELFPAY ==
[2020-09-03 17:01] LABS: Absolute Lymphocyte Count 1.84 X10^3/uL (0.83-4.51); Absolute Neutrophil Count 5.7 X10^3/uL (2.0-7.7); Basophil# 0.02 X10^3/uL; Basophil% 0.2 % (0-1); Eosinophil# 0.15 X10^3/uL; Eosinophils% 1.8 % (0-5); Hematocrit 31.3 % (37-47); Hemoglobin 9.7 g/dL (12.0-15.0); Lymphocyte # 1.84 X10^3/ul (4.0); Lymphocyte % 22.7 % (19-41); Mean Corpuscular Hgb 27.7 pg (27.0-32.0); Mean Corpuscular Volume 89.4 fL (81-99); Mean Platelet Vol. 10.8 fl (6.2-12.0); Monocyte# 0.42 X10^3/uL; Monocyte% 5.2 % (0-10); NRBC Flagged by Analyzer 0.2 % (0-5); Neutrophil # 5.67 X10^3/uL (2.7-7.7); Neutrophil % 69.9 % (47-70); Platelet Count 283 K/mm3 (150-450); RBC Distribution Width CV 13.6 % (11.6-14.6); RBC Distribution Width SD 44.6 fl (35.1-43.9); White Blood Count 8.1 K/mm3 (4.4-11.0)
[2020-09-03 17:19] LABS: Vitamin D,25 Hydroxy 29.8 ng/mL
[2020-09-03 17:33] LABS: ALB/GLOB Ratio 0.8 RATIO (0.9-2.4); AST(SGOT) 21 U/L (15-37); Alanine Aminotransfer ALT/SGPT 25 U/L (13-56); Albumin, Serum 3.3 g/dL (3.2-5.0); Alkaline Phosphatase 125 U/L (45-117); Anion Gap 6 (5-15); BUN 24 mg/dL (7-18); BUN/Creat Ratio 20.3 RATIO (10-20); Calcium,Total 9.7 mg/dL (8.5-10.1); Chloride 103 mmol/L (98-107); Creatinine, Serum 1.18 mg/dL (0.55-1.02); EST Glomerular Filtration Rate 49 mL/min (>60); Est Glom Filt Rate - Afr Amer 59 mL/min (>60); Glucose 69 mg/dL (74-106); Potassium 4.4 mmol/L (3.5-5.1); Protein, Total 7.3 g/dL (6.4-8.2); Sodium Level 139 mmol/L (136-145); Thyroid Stim Hormone (TSH) 1.48 uIU/mL (0.358-3.74)
== END ==
PROVIDERS: PCP Family Medicine Geriatric Medicine; Visit Provider Family Medicine Geriatric Medicine
DX: E11.65 Type 2 diabetes mellitus with hyperglycemia (principal); E55.9 Vitamin D deficiency, unspecified; R53.83 Other fatigue
CPT/HCPCS: 36415; 80053; 82306; 84443; 85025

== ENCOUNTER → 2020-09-08 16:59 | Outpatient (CLI) | payer MEDICARE, BC, SELFPAY ==
[2020-09-08 17:59] LABS: Absolute Neutrophil Count 3.9 X10^3/uL (2.0-7.7); Basophil# 0.02 X10^3/uL; Basophil% 0.3 % (0-1); Eosinophil# 0.16 X10^3/uL; Eosinophils% 2.5 % (0-5); Hematocrit 30.4 % (37-47); Hemoglobin 9.5 g/dL (12.0-15.0); Mean Corp Hgb Conc 31.3 g/dL (32-36); Mean Corpuscular Hgb 28.2 pg (27.0-32.0); Mean Corpuscular Volume 90.2 fL (81-99); Mean Platelet Vol. 10.2 fl (6.2-12.0); Monocyte# 0.35 X10^3/uL; Monocyte% 5.5 % (0-10); NRBC Flagged by Analyzer 0 % (0-5); Neutrophil % 61.5 % (47-70); Platelet Count 252 K/mm3 (150-450); RBC Distribution Width CV 13.9 % (11.6-14.6); RBC Distribution Width SD 45.4 fl (35.1-43.9); Red Blood Count 3.37 M/mm3 (4.2-5.4); Reticulocyte Count 1.32 % (0.5-1.5); White Blood Count 6.3 K/mm3 (4.4-11.0)
[2020-09-08 18:55] LABS: Vitamin D,25 Hydroxy 21.5 ng/mL
[2020-09-08 19:42] LABS: Ferritin 54 ng/mL (8-252); Iron 73 ug/dL (50-170); Iron Binding Capacity,Total 332 ug/dL (250-450)
[2020-09-09 12:39] LABS: Vitamin B12 320 pg/mL (211-911)
== END ==
PROVIDERS: PCP Family Medicine Geriatric Medicine; Referring Provider Family Medicine Geriatric Medicine; Visit Provider Family Medicine Geriatric Medicine
DX: D64.9 Anemia, unspecified (principal)
CPT/HCPCS: 36415; 82306; 82607; 82728; 82746; 83540; 83550; 85025; 85045

== ENCOUNTER → 2020-10-08 16:09 | Outpatient (CLI) | payer MEDICARE, BC, SELFPAY ==
[2020-09-17 10:10] VITALS: BMI 39.1
--- NOTE | 2020-10-08 16:09 | BI_ITS ---
MAMMOGRAPHY - BILATERAL SCREENING REASON FOR EXAM: Female, 65 years old. Routine annual screening examination. PERTINENT HISTORY: Non-contributory. TECHNIQUE: Digital bilateral breast joseluis (3D mammographic acquisition) in the CC and MLO projections. 2-D mediolateral oblique (MLO) and craniocaudad (CC) views of both breasts were obtained. CAD: Full Field Digital Mammography with Computer Added Detection was performed. COMPARISON: Comparison is made with prior study dated 07/05/2019. FINDINGS: Breast Composition: The breasts are heterogeneously dense, which may obscure small masses. There are no dominant masses or suspicious calcifications. Stable small benign-appearing bilateral axillary lymph nodes. Stable scattered benign-appearing calcifications. No other significant abnormalities are identified. There has been no significant change since the prior study. BI/SCREEN MAMM (CAD) W/JOSELUIS BILAT IMPRESSION: Stable bilateral screening mammogram. Yearly follow-up mammogram recommended. (A) ASSESSMENT CATEGORY: BIRADS Category 2: Benign. A letter regarding these results will be sent to the patient by the facility within 30 days. Approximately 10% of breast cancers are not detected by mammography. A normal mammogram should not delay biopsy of a clinically suspicious abnormality. [id number] Electronically Signed: Lee Montenegro, at 8:19 EST , Service support ,
== END ==
PROVIDERS: PCP Family Medicine Geriatric Medicine; Referring Provider Internal Medicine Hematology & Oncology; Visit Provider Internal Medicine Hematology & Oncology
DX: Z12.31 Encounter for screening mammogram for malignant neoplasm of breast (principal)
CPT/HCPCS: 77063; 77067

== ENCOUNTER → 2020-12-03 15:42 | Outpatient (CLI) | payer MEDICARE, BC, SELFPAY ==
[2020-09-17 10:10] VITALS: BMI 39.1
[2020-12-03 17:20] LABS: Absolute Lymphocyte Count 1.78 X10^3/uL (0.83-4.51); Basophil# 0.03 X10^3/uL; Basophil% 0.4 % (0-1); Eosinophil# 0.18 X10^3/uL; Eosinophils% 2.4 % (0-5); Hematocrit 35.7 % (37-47); Hemoglobin 11.3 g/dL (12.0-15.0); Lymphocyte # 1.78 X10^3/ul (4.0); Mean Corp Hgb Conc 31.7 g/dL (32-36); Mean Corpuscular Volume 85.4 fL (81-99); Mean Platelet Vol. 10.8 fl (6.2-12.0); Monocyte# 0.45 X10^3/uL; Monocyte% 6.1 % (0-10); NRBC Flagged by Analyzer 0 % (0-5); Neutrophil # 4.96 X10^3/uL (2.7-7.7); Neutrophil % 66.8 % (47-70); Platelet Count 316 K/mm3 (150-450); RBC Distribution Width SD 40.2 fl (35.1-43.9); Red Blood Count 4.18 M/mm3 (4.2-5.4); White Blood Count 7.4 K/mm3 (4.4-11.0)
[2020-12-03 17:31] LABS: ALB/GLOB Ratio 0.8 RATIO (0.9-2.4); AST(SGOT) 27 U/L (15-37); Alanine Aminotransfer ALT/SGPT 29 U/L (13-56); Albumin, Serum 3.4 g/dL (3.2-5.0); Alkaline Phosphatase 103 U/L (45-117); Anion Gap 5 (5-15); BUN 16 mg/dL (7-18); BUN/Creat Ratio 12.6 RATIO (10-20); Calcium,Total 10.4 mg/dL (8.5-10.1); Chloride 97 mmol/L (98-107); Creatinine, Serum 1.27 mg/dL (0.55-1.02); EST Glomerular Filtration Rate 45 mL/min (>60); Est Glom Filt Rate - Afr Amer 54 mL/min (>60); Glucose 248 mg/dL (74-106); Protein, Total 7.4 g/dL (6.4-8.2); Sodium Level 133 mmol/L (136-145); Thyroid Stim Hormone (TSH) 1.31 uIU/mL (0.358-3.74)
[2020-12-03 18:59] LABS: M R Staph aureus DNA By PCR Negative (Negative); Probe Check PASS; Specimen Processing Control PASS; Staph aureus DNA By PCR NEGATIVE (Negative)
== END ==
PROVIDERS: PCP Family Medicine Geriatric Medicine; Visit Provider Family Medicine Geriatric Medicine
DX: E11.65 Type 2 diabetes mellitus with hyperglycemia (principal); I10 Essential (primary) hypertension; E55.9 Vitamin D deficiency, unspecified; B95.62 Methicillin resistant Staphylococcus aureus infection as the cause of diseases classified elsewhere
CPT/HCPCS: 36415; 80053; 82306; 84443; 85025; 87070; 87077; 87186; 87205; 87640

== ENCOUNTER 2020-12-17 10:00 | Outpatient (RCR) | payer MEDICARE, BC, SELFPAY ==
[2020-09-17 10:10] VITALS: BMI 39.1
[2020-12-08 13:11] VITALS: BMI 34.4
[2020-12-10 09:45] VITALS: BP 126/55; PULSE 97; RESP 18; TEMP 36.1; BMI 34.4
--- NOTE | 2020-12-10 11:58 | HP.PCM_ITS ---
(1) Nonhealing nonsurgical wound with fat layer exposed Status: Acute Code(s): T14.8XXA - Other injury of unspecified body region, initial encounter (2) Anemia Status: Chronic Qualifiers: Anemia type: due to chronic kidney disease Chronic kidney disease stage 3 subtype: stage 3a (GFR 45-59) Code(s): D64.9 - Anemia, unspecified (3) Chronic renal disease, stage 3, moderately decreased glomerular filtration rate (GFR) between 30-59 mL/min/1.73 square meter Status: Chronic Code(s): N18.30 - Chronic kidney disease, stage 3 unspecified (4) Diabetes type 2, uncontrolled Status: Chronic Qualifiers: Glycemic state: with hyperglycemia Qualified Code(s): E11.65 - Type 2 diabetes mellitus with hyperglycemia Code(s): E11.65 - Type 2 diabetes mellitus with hyperglycemia Comment: Follows with podiatry. Seeing a retinal specialist for eye issues. Reports BG readings elevated mostly middle to end of day. Will split her levemir to two doses for better coverage. Enc to take meal insulin for each meal. BP controlled. (5) Hyperlipidemia associated with type 2 diabetes mellitus Status: Chronic Code(s): E11.69 - Type 2 diabetes mellitus with other specified complication; E78.5 - Hyperlipidemia, unspecified History of Present Illness Date of Service: 12/10/20 Chief Complaint: Follow-up left chest under breast wound History of Wound: 65-year-old white female with diabetes uncontrolled history of renal problems had a wire from her bra that impaled under her breast. She now has a open wound of about 1-1/2 to 2 inches. He denies pain. This has been going on since before Daniela closer to [facility] she is currently taking cephalexin 500 and doxycycline 100 and fluconazole 100 mg daily for a satellite type rash around the wound. Denies fever chills nausea vomiting or diarrhea Past Medical History Past Medical History: Chronic Problems (Last Updated 12/08/20 @ 13:07 by Kimberly Hugo) Diabetes type 2, uncontrolled (Chronic) Follows with podiatry. Seeing a retinal specialist for eye issues. Reports BG readings elevated mostly middle to end of day. Will split her levemir to two doses for better coverage. Enc to take meal insulin for each meal. BP controlled. Hyperlipidemia associated with type 2 diabetes mellitus (Chronic) Malaise and fatigue (Chronic) Anemia (Chronic) Chronic renal disease, stage 3, moderately decreased glomerular filtration rate (GFR) between 30-59 mL/min/1.73 square meter (Chronic) Osteopenia (Chronic) Past Medical History: Open wound under left breast from a puncture from a wire from her underwire bra Allergies/Adverse Reactions: Allergies adhesive tape Allergy (Intermediate, Verified 12/08/20 13:08) Rash codeine Allergy (Intermediate, Verified 12/08/20 13:08) Dizziness Home Medications: Ambulatory Orders Medication Instructions Recorded Atorvastatin Calcium 40 mg PO QHS 01/06/20 Cholecalciferol (VIT D3) [Vitamin 3,000 unit PO DAILY 01/06/20 D] Insulin Detemir [Levemir FlexPen] 40 unit SUBCUT BID 01/06/20 Olanzapine [Zyprexa] 2.5 mg PO QHS 01/06/20 Pioglitazone [Actos] 30 mg PO DAILY 01/06/20 metFORMIN HCl [Glucophage] 500 mg PO BIDCM 01/06/20 Glimepiride [Amaryl] 4 mg PO BID 09/10/20 Pantoprazole Sodium 40 mg PO DAILY 09/10/20 Mirtazapine 7.5 mg PO QHS 09/17/20 Lives: Spouse/ Significant Other Smoking Status: Never smoker Review of Systems Constitutional: Denies: Chills, Fever Eyes: Denies: Blurred vision, Drainage, Pain HEENT: Denies: Difficulty Hearing, Difficulty Swallowing, Sore Throat, Visual Changes Cardiovascular: Denies: Chest Pain, Palpitations, Syncope Respiratory: Denies: Cough, Shortness of Breath Gastrointestinal: Denies: Abdominal Pain, Nausea, Vomiting Genitourinary: Denies: Dysuria, Frequency Musculoskeletal: Denies: Joint Pain, Muscle pain Skin: Denies: Jaundice, Rash Neurological: Denies: Balance problems, Change in Speech, Difficulty swallowing, Focal weakness Psychiatric: Denies: Anxiety, Depression Endocrine: Denies: Change in Body Habitus Hematologic/ Lymphatic: Denies: Adenopathy - Physical Exam Vital Signs Temp Pulse Resp BP 97.0 F L 97 18 126/55 H 12/10/20 09:45 12/10/20 09:45 12/10/20 09:45 12/10/20 09:45 General: Oriented x3, Cooperative, Well developed HEENT: Atraumatic, PERRLA Oral: Moist Mucosa Neck: Supple, No JVD Lungs: Clear to auscultation, Normal air movement Cardiovascular: Regular rate, Regular Rhythm Abdomen: Bowel Sounds Present, Soft, Non Tender, No Hepato-splenomegaly Extremities: No clubbing, No edema Skin: Ulcer/ Wound - Wound under left breast nonhealing from trauma Wound Measurements and Assessment WC - Nurse 1 - General Ulcer Measurement Start: 12/10/20 09:26 Freq: Status: Active Protocol: Activity Type Activity Date Activity User E-Sign Co-Sign Detail Recorded Client Recorded Date Recorded By Document 12/10/20 09:50 MW [id number] 12/10/20 09:51 MW 12/10/20 09:50 Wound Center Nurse 1 [Ulcer Assessment] #1 left breast -Combined with other wound No -Current Size (cm) - Length 1.5 -Current Size (cm) - Width 1.2 -Current Size (cm) - Depth 0.2 -Total Square Cm 1.80 -Photo Taken Yes -Epithelialization None Present -Tunneling No -Undermining/Tunneling No -Circular Undermining No -Exudate Amt Medium -Exudate Type Serosanguineous -Wound Margin Flat & Intact -Granulation Amt Large (67-100%) -Granulation Quality [place] -Slough/Fibrin Yes -Necrosis Amt Small (1-33%) -Necrotic Tissue Type Adherent Slough -Structure Exposed N/A -Texture (Treva-wound Skin Appearance) Assessed, Excoriation -Moisture (Treva-wound Skin Appearance Assessed ) -Color (Treva-wound Skin Appearance) Assessed,Rubor -Temperature (Treva-wound Skin No Abnormality Appearance) (Pt Warm) -Tenderness on Palpation (Treva-wound Yes Skin Appearance) -Ulcer Cleansing Rinsed/ Irrigated with Saline -Foul Odor after Cleansing No -Anesthetic Used 4% Lidocaine Solution [Edema Assessment] -Lower Limb Edema Present No WC - Nurse 2 - General Ulcer CM Notes Start: 12/10/20 09:26 Freq: Status: Active Protocol: Activity Type Activity Date Activity User E-Sign Co-Sign Detail Recorded Client Recorded Date Recorded By Document 12/10/20 10:02 MW [id number] 12/10/20 10:10 MW 12/10/20 10:02 Wound Center Nurse 2 [Procedure/Treatment] #1 left breast -Time 10:04 -Correct Patient Yes -Correct Side, Site, Position Yes -Correct Procedure Yes -Procedure Performed Yes -Type of Procedure Debridement -Clinical Debridement Subcutaneous -Tissue Removed Subcutaneous -Post Debridement (cm) - Length 1.2 -Post Debridement (cm) - Width 2.0 -Post Debridement (cm) - Depth 0.2 -Total Square (Post) (cm) 2.40 -Area of Debridement (cm) - Length 1.2 -Area of Debridement (cm) - Width 2.0 -Total Square (Area) (cm) 2.40 -Tunneling No -Undermining/Tunneling No -Circular Undermining No -Wound/Ulcer Outcome Not Healed -Ulcer Cleansing Rinsed/ Irrigated with Saline -Foul Odor after Cleansing No -Bioengineered Tissue No -Bleeding Controlled with Pressure -Offloading No -Treatment Response Procedure Tolerated Well -Debridement - Subq, 1st 20sq cm Yes [See Physician Procedure note for Specifics] Pain Scale: 0-10 Numeric [Pain] -Is Patient Pain Free? Yes - Nurse 3 - General Ulcer D/C NN Start: 12/10/20 09:26 Freq: Status: Active Protocol: Activity Type Activity Date Activity User E-Sign Co-Sign Detail Recorded Client Recorded Date Recorded By Document 12/10/20 10:10 MW [id number] 12/10/20 10:11 MW 12/10/20 10:10 Wound Care Nurse 3 [Wound Dressing] #1 left breast -Ulcer Cleansing Rinsed/ Irrigated with Saline -Foul Odor after Cleansing No -Negative Pressure Wound Therapy N/A -Primary Dressing Applied Aquacel Extra -Primary Dressing Covered/Secured Dry Gauze, with Secured with Tape -Other Covering ABD PAD -Aquacel Extra 1 [Post Procedure Tolerated] -Treatment Response Procedure Tolerated Well Teaching: Wound Center [Wound Center Education] (Items with an * have Printed Materials Available- Please identify what is given to patient under the Teaching materials given to patient and caregiver Section. Dressing Your Wound -Person Taught Patient,Family -Teaching Method Discussion, Demonstration -Response to teaching Verbalize understanding WC - Visit Discharge [Visit Discharge Information] -Discharge Condition Stable -Ambulatory Status Ambulatory -Transportation Private Auto -Accompanied by -Medication Reconcilliation completed No & provided to patient/care provider -Clinical Summary of Care Provided Yes Musculoskeletal: No Tenderness to Palpation of Joints or Extremities Lymphatic: No Cervical, Supraclavicular, or Inguinal Adenopathy Neurological: Cranial nerves II-XII grossly intact, Neuro grossly intact Psych/Mental Status: Normal Affect, Appropriate Debridement Note Post-Debridement Measurements/Treatment WC - Nurse 2 - General Ulcer CM Notes Start: 12/10/20 09:26 Freq: Status: Active Protocol: Activity Type Activity Date Activity User E-Sign Co-Sign Detail Recorded Client Recorded Date Recorded By Document 12/10/20 10:02 MW [id number] 12/10/20 10:10 MW 12/10/20 10:02 Wound Center Nurse 2 #1 left breast -Time 10:04 -Correct Patient Yes -Correct Side, Site, Position Yes -Correct Procedure Yes -Procedure Performed Yes -Type of Procedure Debridement -Clinical Debridement Subcutaneous -Tissue Removed Subcutaneous -Post Debridement (cm) - Length 1.2 -Post Debridement (cm) - Width 2.0 -Post Debridement (cm) - Depth 0.2 -Total Square (Post) (cm) 2.40 -Area of Debridement (cm) - Length 1.2 -Area of Debridement (cm) - Width 2.0 -Total Square (Area) (cm) 2.40 -Tunneling No -Undermining/Tunneling No -Circular Undermining No -Wound/Ulcer Outcome Not Healed -Ulcer Cleansing Rinsed/ Irrigated with Saline -Foul Odor after Cleansing No -Bioengineered Tissue No -Bleeding Controlled with Pressure -Offloading No -Treatment Response Procedure Tolerated Well -Debridement - Subq, 1st 20sq cm Yes Pain Scale: 0-10 Numeric Is Patient Pain Free? Yes WC - Nurse 3 - General Ulcer D/C NN Start: 12/10/20 09:26 Freq: Status: Active Protocol: Activity Type Activity Date Activity User E-Sign Co-Sign Detail Recorded Client Recorded Date Recorded By Document 12/10/20 10:10 MW [id number] 12/10/20 10:11 MW 12/10/20 10:10 Wound Care Nurse 3 #1 left breast -Ulcer Cleansing Rinsed/ Irrigated with Saline -Foul Odor after Cleansing No -Negative Pressure Wound Therapy N/A -Primary Dressing Applied Aquacel Extra -Primary Dressing Covered/Secured with Dry Gauze, Secured with Tape -Other Covering ABD PAD -Aquacel Extra 1 Treatment Response Procedure Tolerated Well Teaching: Wound Center Dressing Your Wound -Person Taught Patient,Family -Teaching Method Discussion, Demonstration -Response to teaching Verbalize understanding WC - Visit Discharge Discharge Condition Stable Ambulatory Status Ambulatory Transportation Private Auto Accompanied by Medication Reconcilliation completed & No provided to patient/care provider Clinical Summary of Care Provided Yes Wound debrided: Left breast open wound nonhealing Type of Debridement: Excisional debridement Anesthesia Used: 5% Lidocaine Gel Depth: Down to and including healthy tissue, in the subcutaneous layer Percentage of wound debrided: 100 Instrument Used: 5mm curette Tissue Removed: Fibrin Severity: Fat Layer Exposed Amount of bleeding with debridement: Mild Bleeding Controlled with: Compression and gauze Patient tolerated procedure well Assessment/Plan Cultures obtained for aerobic and anaerobic Active Problems (Last Updated 12/08/20 @ 13:07 by Kimberly Hugo) Diabetes type 2, uncontrolled (Chronic) Follows with podiatry. Seeing a retinal specialist for eye issues. Reports BG readings elevated mostly middle to end of day. Will split her levemir to two doses for better coverage. Enc to take meal insulin for each meal. BP controlled. Hyperlipidemia associated with type 2 diabetes mellitus (Chronic) Anemia (Chronic) Chronic renal disease, stage 3, moderately decreased glomerular filtration rate (GFR) between 30-59 mL/min/1.73 square meter (Chronic) Nonhealing nonsurgical wound with fat layer exposed (Acute) Assessment: Diabetes type 2 uncontrolled. Nonhealing open wound left breast. Renal insufficiency stage III Plan: Wash area with antibacterial soap. Apply Aquacel extra to wound base moistened. Cover with Adaptic and gauze. ABD under breast. Follow-up in 1 week. We will call with results of cultures continue cephalexin as been prescribed
[2020-12-17 10:08] VITALS: BP 136/64; PULSE 103; TEMP 35.6; BMI 34.4
--- NOTE | 2020-12-17 10:23 | PN.PCM_ITS ---
(1) Nonhealing nonsurgical wound with fat layer exposed Status: Acute Code(s): T14.8XXA - Other injury of unspecified body region, initial encounter (2) Anemia Status: Chronic Qualifiers: Anemia type: due to chronic kidney disease Chronic kidney disease stage 3 subtype: stage 3a (GFR 45-59) Code(s): D64.9 - Anemia, unspecified (3) Chronic renal disease, stage 3, moderately decreased glomerular filtration rate (GFR) between 30-59 mL/min/1.73 square meter Status: Chronic Code(s): N18.30 - Chronic kidney disease, stage 3 unspecified (4) Diabetes type 2, uncontrolled Status: Chronic Qualifiers: Glycemic state: with hyperglycemia Code(s): E11.65 - Type 2 diabetes mellitus with hyperglycemia Comment: Follows with podiatry. Seeing a retinal specialist for eye issues. Reports BG readings elevated mostly middle to end of day. Will split her levemir to two doses for better coverage. Enc to take meal insulin for each meal. BP controlled. (5) Hyperlipidemia associated with type 2 diabetes mellitus Status: Chronic Code(s): E11.69 - Type 2 diabetes mellitus with other specified complication; E78.5 - Hyperlipidemia, unspecified Type of Wound Date of Service: 12/17/20 Chief Complaint: Follow-up left chest under breast wound History of Wound: 65-year-old white female with diabetes uncontrolled history of renal problems had a wire from her bra that impaled under her breast. She now has a open wound of about 1-1/2 to 2 inches. He denies pain. This has been going on since before Daniela closer to [facility] she is currently taking cephalexin 500 and doxycycline 100 and fluconazole 100 mg daily for a satellite type rash around the wound. Denies fever chills nausea vomiting or diarrhea Progress of Wound: The wound is much smaller and superficial no depth hardly rash is completely gone patient tolerating the Aquacel extra very well. Cultures were negative - Physical Exam Vital Signs Temp Pulse Resp BP 96.0 F L 103 H 18 136/64 H 12/17/20 10:08 12/17/20 10:08 12/10/20 09:45 12/17/20 10:08 General: Oriented x3, Cooperative, Well developed HEENT: Atraumatic, PERRLA Oral: Moist Mucosa Neck: Supple, No JVD Lungs: Clear to auscultation, Normal air movement Cardiovascular: Regular rate, Regular Rhythm Abdomen: Bowel Sounds Present, Soft, Non Tender, No Hepato-splenomegaly Extremities: No clubbing, No edema Skin: Ulcer/ Wound - Left breast wound more superficial this week Wound Measurements and Assessment WC - Nurse 1 - General Ulcer Measurement Start: 12/10/20 09:26 Freq: Status: Active Protocol: Activity Type Activity Date Activity User E-Sign Co-Sign Detail Recorded Client Recorded Date Recorded By Document 12/17/20 10:08 KR [id number] 12/17/20 10:09 KR 12/17/20 10:08 Wound Center Nurse 1 [Ulcer Assessment] #1 left breast -Current Size (cm) - Length 1 -Current Size (cm) - Width 1.2 -Current Size (cm) - Depth 0.1 -Total Square Cm 1.2 -Exudate Amt Small -Exudate Type Serosanguineous -Wound Margin Distinct, Outline Attached -Granulation Amt Medium (34-66%) -Granulation Quality [place],Red -Necrosis Amt Small (1-33%) -Necrotic Tissue Type Adherent Slough -Texture (Treva-wound Skin Appearance) Assessed, Scarring -Moisture (Treva-wound Skin Appearance No Abnormality, ) Assessed -Color (Treva-wound Skin Appearance) No Abnormality, Assessed -Temperature (Treva-wound Skin No Abnormality Appearance) (Pt Warm) -Tenderness on Palpation (Treva-wound No Skin Appearance) -Ulcer Cleansing Rinsed/ Irrigated with Saline -Foul Odor after Cleansing No -Anesthetic Used 4% Lidocaine Solution WC - Nurse 2 - General Ulcer CM Notes Start: 12/10/20 09:26 Freq: Status: Active Protocol: Activity Type Activity Date Activity User E-Sign Co-Sign Detail Recorded Client Recorded Date Recorded By Document 12/17/20 10:16 MW [id number] 12/17/20 10:20 MW 12/17/20 10:16 Wound Center Nurse 2 [Procedure/Treatment] -Time 10:18 -Correct Patient Yes -Correct Side, Site, Position Yes -Correct Procedure Yes -Procedure Performed Yes -Type of Procedure Debridement -Clinical Debridement Subcutaneous -Tissue Removed Subcutaneous -Post Debridement (cm) - Length 1.0 -Post Debridement (cm) - Width 0.4 -Post Debridement (cm) - Depth 0.1 -Total Square (Post) (cm) 0.40 -Area of Debridement (cm) - Length 1.0 -Area of Debridement (cm) - Width 0.4 -Total Square (Area) (cm) 0.40 -Tunneling No -Undermining/Tunneling No -Circular Undermining No -Wound/Ulcer Outcome Not Healed -Ulcer Cleansing Rinsed/ Irrigated with Saline -Foul Odor after Cleansing No -Bioengineered Tissue No -Bleeding Controlled with Pressure -Offloading No -Treatment Response Procedure Tolerated Well -Debridement - Subq, 1st 20sq cm Yes [See Physician Procedure note for Specifics] Pain Scale: 0-10 Numeric [Pain] -Is Patient Pain Free? Yes Musculoskeletal: No Tenderness to Palpation of Joints or Extremities Lymphatic: No Cervical, Supraclavicular, or Inguinal Adenopathy Neurological: Cranial nerves II-XII grossly intact, Neuro grossly intact Psych/Mental Status: Normal Affect, Appropriate Debridement Note Post-Debridement Measurements/Treatment WC - Nurse 2 - General Ulcer CM Notes Start: 12/10/20 09:26 Freq: Status: Active Protocol: Activity Type Activity Date Activity User E-Sign Co-Sign Detail Recorded Client Recorded Date Recorded By Document 12/10/20 10:02 MW [id number] 12/10/20 10:10 MW Document 12/17/20 10:16 MW [id number] 12/17/20 10:20 MW 12/10/20 12/17/20 10:02 10:16 Wound Center Nurse 2 #1 left breast -Time 10:04 10:18 -Correct Patient Yes Yes -Correct Side, Site, Position Yes Yes -Correct Procedure Yes Yes -Procedure Performed Yes Yes -Type of Procedure Debridement Debridement -Clinical Debridement Subcutaneous Subcutaneous -Tissue Removed Subcutaneous Subcutaneous -Post Debridement (cm) - Length 1.2 1.0 -Post Debridement (cm) - Width 2.0 0.4 -Post Debridement (cm) - Depth 0.2 0.1 -Total Square (Post) (cm) 2.40 0.40 -Area of Debridement (cm) - Length 1.2 1.0 -Area of Debridement (cm) - Width 2.0 0.4 -Total Square (Area) (cm) 2.40 0.40 -Tunneling No No -Undermining/Tunneling No No -Circular Undermining No No -Wound/Ulcer Outcome Not Healed Not Healed -Ulcer Cleansing Rinsed/ Rinsed/ Irrigated with Irrigated with Saline Saline -Foul Odor after Cleansing No No -Bioengineered Tissue No No -Bleeding Controlled with Pressure Pressure -Offloading No No -Treatment Response Procedure Procedure Tolerated Well Tolerated Well -Debridement - Subq, 1st 20sq cm Yes Yes Pain Scale: 0-10 Numeric Is Patient Pain Free? Yes Yes WC - Nurse 3 - General Ulcer D/C NN Start: 12/10/20 09:26 Freq: Status: Active Protocol: Activity Type Activity Date Activity User E-Sign Co-Sign Detail Recorded Client Recorded Date Recorded By Document 12/10/20 10:10 MW [id number] 12/10/20 10:11 MW 12/10/20 10:10 Wound Care Nurse 3 #1 left breast -Ulcer Cleansing Rinsed/ Irrigated with Saline -Foul Odor after Cleansing No -Negative Pressure Wound Therapy N/A -Primary Dressing Applied Aquacel Extra -Primary Dressing Covered/Secured with Dry Gauze, Secured with Tape -Other Covering ABD PAD -Aquacel Extra 1 Treatment Response Procedure Tolerated Well Teaching: Wound Center Dressing Your Wound -Person Taught Patient,Family -Teaching Method Discussion, Demonstration -Response to teaching Verbalize understanding WC - Visit Discharge Discharge Condition Stable Ambulatory Status Ambulatory Transportation Private Auto Accompanied by Medication Reconcilliation completed & No provided to patient/care provider Clinical Summary of Care Provided Yes Wound debrided: Left breast wound Type of Debridement: Excisional debridement Anesthesia Used: 5% Lidocaine Gel Depth: Down to and including healthy tissue Instrument Used: 3mm curette Tissue Removed: Fibrin Severity: Limited To Skin Breakdown Amount of bleeding with debridement: Mild Bleeding Controlled with: Compression and gauze Patient tolerated procedure well Assessment/Plan Active Problems (Last Reviewed 12/11/20 @ 10:39 by Xochilt Segundo) Diabetes type 2, uncontrolled (Chronic) Follows with podiatry. Seeing a retinal specialist for eye issues. Reports BG readings elevated mostly middle to end of day. Will split her levemir to two doses for better coverage. Enc to take meal insulin for each meal. BP controlled. Hyperlipidemia associated with type 2 diabetes mellitus (Chronic) Anemia (Chronic) Chronic renal disease, stage 3, moderately decreased glomerular filtration rate (GFR) between 30-59 mL/min/1.73 square meter (Chronic) Nonhealing nonsurgical wound with fat layer exposed (Acute) Assessment: Diabetes type 2 uncontrolled. Nonhealing open wound left breast. Renal insufficiency stage III Plan: Wash area with antibacterial soap. Apply Aquacel extra to wound base moistened. Cover with Adaptic and gauze. Follow-up in 1 week
== END 2020-12-28 23:59 ==
LOC: WC 10:00
PROVIDERS: PCP Family Medicine Geriatric Medicine; Visit Provider Nurse Practitioner
DX: T81.89XA Other complications of procedures, not elsewhere classified, initial encounter (principal); Y83.9 Surgical procedure, unspecified as the cause of abnormal reaction of the patient, or of later complication, without mention of misadventure at the time of the procedure; Y92.9 Unspecified place or not applicable; D64.9 Anemia, unspecified; E11.22 Type 2 diabetes mellitus with diabetic chronic kidney disease; E11.65 Type 2 diabetes mellitus with hyperglycemia; E11.69 Type 2 diabetes mellitus with other specified complication; E78.5 Hyperlipidemia, unspecified; M85.80 Other specified disorders of bone density and structure, unspecified site; N18.30 Chronic kidney disease, stage 3 unspecified; Z79.4 Long term (current) use of insulin
CPT/HCPCS: 11042; 87070; 87075; 87205; 99203; G0463

== ENCOUNTER 2020-12-31 09:00 | Outpatient (RCR) | payer MEDICARE, BC, SELFPAY ==
[2020-12-17 10:25] VITALS: BMI 35.5
[2020-12-29 00:37] VITALS: BP 136/64; PULSE 103; RESP 18; TEMP 35.6
[2020-12-31 09:04] VITALS: BP 122/70; PULSE 93; RESP 18; TEMP 36.4; BMI 35.5
--- NOTE | 2020-12-31 10:08 | PCM.WC.PN ---
(1) Nonhealing nonsurgical wound with fat layer exposed Status: Acute Code(s): T14.8XXA - Other injury of unspecified body region, initial encounter (2) Diabetes type 2, uncontrolled Status: Chronic Qualifiers: Code(s): E11.65 - Type 2 diabetes mellitus with hyperglycemia Comment: Follows with podiatry. Seeing a retinal specialist for eye issues. Reports BG readings elevated mostly middle to end of day. Will split her levemir to two doses for better coverage. Enc to take meal insulin for each meal. BP controlled. Type of Wound Date of Service: 12/31/20 Chief Complaint: Follow-up left chest under breast wound History of Wound: 65-year-old white female with diabetes uncontrolled history of renal problems had a wire from her bra that impaled under her breast. She now has a open wound of about 1-1/2 to 2 inches. He denies pain. This has been going on since before [place] closer to [facility] she is currently taking cephalexin 500 and doxycycline 100 and fluconazole 100 mg daily for a satellite type rash around the wound. Denies fever chills nausea vomiting or diarrhea Progress of Wound: The wound is healed and patient will be discharged from the wound center - Physical Exam Vital Signs Temp Pulse Resp BP 97.6 F L 93 18 122/70 H 12/31/20 09:04 12/31/20 09:04 12/31/20 09:04 12/31/20 09:04 General: Oriented x3, Cooperative, Well developed HEENT: Atraumatic, PERRLA Oral: Moist Mucosa Neck: Supple, No JVD Lungs: Clear to auscultation, Normal air movement Cardiovascular: Regular rate, Regular Rhythm Abdomen: Bowel Sounds Present, Soft, Non Tender, No Hepato-splenomegaly Extremities: No clubbing, No edema Skin: Ulcer/ Wound - Chest wall under left breast is healed Wound Measurements and Assessment WC - Nurse 1 - General Ulcer Measurement Start: 12/31/20 09:02 Freq: Status: Discharge Protocol: Activity Type Activity Date Activity User E-Sign Co-Sign Detail Recorded Client Recorded Date Recorded By Document 12/31/20 09:04 PL [id number] 12/31/20 09:07 PL Edit Status 12/31/20 09:20 MARQUIS OWUSU Active=>Discharge [id number] 12/31/20 09:20 BKG DAEMON 12/31/20 09:04 Wound Center Nurse 1 [Ulcer Assessment] #1 left breast -Current Size (cm) - Length 0 -Current Size (cm) - Width 0 -Current Size (cm) - Depth 0 -Total Square Cm 0 -Date of Last Picture (Recall this 12/31/20 field) -Photo Taken Yes -Epithelialization Large 67-100% -Tunneling No -Undermining/Tunneling No -Exudate Amt None Present -Granulation Amt Large (67-100%) -Granulation Quality [place] -Slough/Fibrin No -Necrosis Amt None Present (0 %) -Texture (Treva-wound Skin Appearance) No Abnormality, Callus -Color (Treva-wound Skin Appearance) No Abnormality -Temperature (Treva-wound Skin No Abnormality Appearance) (Pt Warm) WC - Nurse 2 - General Ulcer CM Notes Start: 12/31/20 09:02 Freq: Status: Discharge Protocol: Activity Type Activity Date Activity User E-Sign Co-Sign Detail Recorded Client Recorded Date Recorded By Edit Status 12/31/20 09:20 BKG DAEMON Active=>Discharge [id number] 12/31/20 09:20 BKG DAEMON Document 12/31/20 09:24 MW [id number] 12/31/20 09:25 MW 12/31/20 09:24 Wound Center Nurse 2 [Procedure/Treatment] -Time 09:25 -Correct Patient Yes -Correct Side, Site, Position Yes -Correct Procedure Yes -Procedure Performed No -Post Debridement (cm) - Length 0 -Post Debridement (cm) - Width 0 -Post Debridement (cm) - Depth 0 -Total Square (Post) (cm) 0 -Wound/Ulcer Outcome Healed- Epithelialized [See Physician Procedure note for Specifics] Pain Scale: 0-10 Numeric [Pain] -Is Patient Pain Free? Yes WC - Nurse 3 - General Ulcer D/C NN Start: 12/31/20 09:02 Freq: Status: Discharge Protocol: Activity Type Activity Date Activity User E-Sign Co-Sign Detail Recorded Client Recorded Date Recorded By Edit Status 12/31/20 09:20 BKG DAEMON Active=>Discharge [id number] 12/31/20 09:20 BKG DAEMON Document 12/31/20 09:28 MW [id number] 12/31/20 09:28 MW 12/31/20 09:28 Wound Care Nurse 3 [Post Procedure Tolerated] -Treatment Response Procedure Tolerated Well Pain Scale: 0-10 Numeric [Pain] -Is Patient Pain Free? Yes Teaching: Wound Center [Wound Center Education] (Items with an * have Printed Materials Available- Please identify what is given to patient under the Teaching materials given to patient and caregiver Section. Discharge Instructions -Person Taught Patient,Family -Teaching Method Discussion -Response to teaching Verbalize understanding WC - Visit Discharge [Visit Discharge Information] -Discharge Condition Stable -Ambulatory Status Ambulatory -Transportation Private Auto -Accompanied by -Medication Reconcilliation completed No & provided to patient/care provider -Clinical Summary of Care Provided Yes -Notes: healed, discharged from clinic Musculoskeletal: No Tenderness to Palpation of Joints or Extremities Lymphatic: No Cervical, Supraclavicular, or Inguinal Adenopathy Neurological: Cranial nerves II-XII grossly intact, Neuro grossly intact Psych/Mental Status: Normal Affect, Appropriate Debridement Note Post-Debridement Measurements/Treatment WC - Nurse 2 - General Ulcer CM Notes Start: 12/31/20 09:02 Freq: Status: Discharge Protocol: Activity Type Activity Date Activity User E-Sign Co-Sign Detail Recorded Client Recorded Date Recorded By Document 12/31/20 09:24 MW [id number] 12/31/20 09:25 MW 12/31/20 09:24 Wound Center Nurse 2 #1 left breast -Time 09:25 -Correct Patient Yes -Correct Side, Site, Position Yes -Correct Procedure Yes -Procedure Performed No -Post Debridement (cm) - Length 0 -Post Debridement (cm) - Width 0 -Post Debridement (cm) - Depth 0 -Total Square (Post) (cm) 0 -Wound/Ulcer Outcome Healed- Epithelialized Pain Scale: 0-10 Numeric Is Patient Pain Free? Yes WC - Nurse 3 - General Ulcer D/C NN Start: 12/31/20 09:02 Freq: Status: Discharge Protocol: Activity Type Activity Date Activity User E-Sign Co-Sign Detail Recorded Client Recorded Date Recorded By Document 12/31/20 09:28 MW [id number] 12/31/20 09:28 MW 12/31/20 09:28 Wound Care Nurse 3 Treatment Response Procedure Tolerated Well Pain Scale: 0-10 Numeric Is Patient Pain Free? Yes Teaching: Wound Center Discharge Instructions -Person Taught Patient,Family -Teaching Method Discussion -Response to teaching Verbalize understanding WC - Visit Discharge Discharge Condition Stable Ambulatory Status Ambulatory Transportation Private Auto Accompanied by Medication Reconcilliation completed & No provided to patient/care provider Clinical Summary of Care Provided Yes Notes: healed, discharged from clinic No debridement was completed today Assessment/Plan Assessment: Diabetes type 2 uncontrolled. Nonhealing open wound left breast resolved. Renal insufficiency stage III Plan: Discharge from the wound center follow-up as needed
== END 2020-12-31 09:20 | disposition home or self-care (01) ==
LOC: WC 09:00
PROVIDERS: PCP Family Medicine Geriatric Medicine; Visit Provider Nurse Practitioner
DX: T14.8XXA Other injury of unspecified body region, initial encounter (principal); E11.65 Type 2 diabetes mellitus with hyperglycemia; N28.9 Disorder of kidney and ureter, unspecified
CPT/HCPCS: 99212; G0463

== ENCOUNTER → 2020-12-31 09:31 | Outpatient (CLI) | payer MEDICARE, BC, SELFPAY ==
[2020-12-31 09:04] VITALS: BMI 35.5
[2020-12-31 11:14] LABS: PTHIN 85.4 pg/mL (18.4-80.1)
[2020-12-31 11:42] LABS: Protein, Urine (Random) 11.4 mg/dL (<11.9); Protein:Creat Ratio 162 mg/g CRE (0-200)
[2020-12-31 11:44] LABS: BUN 27 mg/dL (7-18); BUN/Creat Ratio 22.5 RATIO (10-20); Calcium,Total 9.2 mg/dL (8.5-10.1); Chloride 98 mmol/L (98-107); EST Glomerular Filtration Rate 48 mL/min (>60); Est Glom Filt Rate - Afr Amer 58 mL/min (>60); Glucose 227 mg/dL (74-106); Phosphorus 3.2 mg/dL (2.5-4.9); Potassium 3.5 mmol/L (3.5-5.1); Sodium Level 136 mmol/L (136-145)
== END ==
PROVIDERS: PCP Family Medicine Geriatric Medicine; Referring Provider Internal Medicine Nephrology; Visit Provider Internal Medicine Nephrology
DX: E11.22 Type 2 diabetes mellitus with diabetic chronic kidney disease (principal); N18.31 Chronic kidney disease, stage 3a
CPT/HCPCS: 36415; 80069; 82570; 83970; 84156; 99212; G0463

== ENCOUNTER → 2021-02-10 20:00 | Outpatient (CLI) | payer MEDICARE, BC, SELFPAY ==
[2020-12-11 10:38] VITALS: BMI 35.5
== END ==
PROVIDERS: PCP Family Medicine Geriatric Medicine; Referring Provider Internal Medicine Critical Care Medicine; Visit Provider Internal Medicine Critical Care Medicine
DX: G47.33 Obstructive sleep apnea (adult) (pediatric) (principal)
CPT/HCPCS: 95811

== ENCOUNTER → 2021-05-12 11:00 | Outpatient (CLI) | payer MEDICARE, BC, SELFPAY ==
[2021-04-02 09:57] VITALS: BMI 37.4
== END ==
PROVIDERS: PCP Family Medicine Geriatric Medicine; Visit Provider Nurse Practitioner Acute Care
DX: G47.33 Obstructive sleep apnea (adult) (pediatric) (principal)
CPT/HCPCS: 98960; G0463

== ENCOUNTER → 2021-05-20 16:02 | Outpatient (CLI) | payer MEDICARE, BC, SELFPAY ==
[2021-04-29 15:25] VITALS: BMI 38.5
[2021-05-20 16:45] LABS: Absolute Lymphocyte Count 1.55 X10^3/uL (0.83-4.51); Absolute Neutrophil Count 3.5 X10^3/uL (2.0-7.7); Basophil# 0.02 X10^3/uL; Basophil% 0.4 % (0-1); Eosinophil# 0.17 X10^3/uL; Hematocrit 33.8 % (37-47); Hemoglobin 10.6 g/dL (12.0-15.0); Lymphocyte # 1.55 X10^3/ul (0.83-4.51); Lymphocyte % 27.5 % (19-41); Mean Corp Hgb Conc 31.4 g/dL (32-36); Mean Corpuscular Volume 89.4 fL (81-99); Mean Platelet Vol. 10.2 fl (6.2-12.0); Monocyte# 0.35 X10^3/uL; Monocyte% 6.2 % (0-10); NRBC Flagged by Analyzer 0 % (0-5); Neutrophil # 3.54 X10^3/uL (2.7-7.7); Neutrophil % 62.7 % (47-70); Platelet Count 224 K/mm3 (150-450); RBC Distribution Width CV 13.2 % (11.6-14.6); RBC Distribution Width SD 43.2 fl (35.1-43.9); Red Blood Count 3.78 M/mm3 (4.2-5.4); White Blood Count 5.6 K/mm3 (4.4-11.0)
[2021-05-20 17:09] LABS: ALB/GLOB Ratio 0.9 RATIO (0.9-2.4); AST(SGOT) 16 U/L (15-37); Alanine Aminotransfer ALT/SGPT 22 U/L (13-56); Albumin, Serum 3.6 g/dL (3.2-5.0); Alkaline Phosphatase 125 U/L (45-117); Anion Gap 6 (5-15); BUN 19 mg/dL (7-18); BUN/Creat Ratio 17.1 RATIO (10-20); Calcium,Total 9.4 mg/dL (8.5-10.1); Chloride 99 mmol/L (98-107); Cholesterol 181 mg/dL (200); Creatinine, Serum 1.11 mg/dL (0.55-1.02); EST Glomerular Filtration Rate 52 mL/min (>60); Est Glom Filt Rate - Afr Amer 63 mL/min (>60); Globulin 3.8 g/dL (2.2-4.2); Glucose 331 mg/dL (74-106); High Density Lipoprotein 41 mg/dL; Potassium 4.8 mmol/L (3.5-5.1); Protein, Total 7.4 g/dL (6.4-8.2); Sodium Level 135 mmol/L (136-145); Thyroid Stim Hormone (TSH) 1.94 uIU/mL (0.358-3.74); Triglycerides 254 mg/dL; Very Low Density Lipoprotein 51 mg/dL (5-40)
[2021-05-20 17:11] LABS: Hemoglobin A1c 11.5 % (3.8-5.6)
== END ==
PROVIDERS: PCP Family Medicine Geriatric Medicine; Visit Provider Family Medicine Geriatric Medicine
DX: E55.9 Vitamin D deficiency, unspecified (principal); E78.5 Hyperlipidemia, unspecified; I10 Essential (primary) hypertension; E11.9 Type 2 diabetes mellitus without complications
CPT/HCPCS: 36415; 80053; 80061; 82306; 83036; 84443; 85025

== ENCOUNTER 2021-06-01 15:18 | Emergency (ER) | payer MEDICARE, BC, SELFPAY ==
[2021-04-29 15:25] VITALS: BMI 38.5
[2021-06-01 15:19] VITALS: BP 164/75; PULSE 80; RESP 15; TEMP 36.2; O2SAT 100; BMI 41.5
--- NOTE | 2021-06-01 15:55 | EX.ED.DYSGE1 ---
HPI History of Present Illness Chief Complaint: Hypoglycemia Informant: patient and spouse/S.O. Narrative Narrative: Patient presents via EMS secondary to hypoglycemia. Patient states that she was just started on a new diabetes medication last week by her PCP. Since then her blood sugars been running low, often in the 50s. Today came in and found her sitting upright with her head bowed. She was confused and had slurred speech. EMS found her blood sugar to be low. She was given glucagon and as her blood sugar yaa symptoms improved. At this time patient's only complaint is that she feels cold. Past medical history: Diabetes, depression, pancreatitis, high cholesterol, appendectomy, cholecystectomy, partial hysterectomy. [facility] Medical History Anemia Anemia of chronic renal failure, stage 3 (moderate) Back problem Bone fracture Cataracts, bilateral Diabetes type 2, controlled Major depressive disorder, recurrent episode Pancreatitis Vision problems Wound of skin Home Medications atorvastatin 40 mg PO QHS 01/06/20 [History Last Taken Unknown] cholecalciferol (vitamin D3) 3,000 unit PO DAILY 01/06/20 [History Last Taken Unknown] insulin detemir U-100 40 unit SC BID 01/06/20 [History Last Taken Unknown] metformin 500 mg PO BIDCM 01/06/20 [History Last Taken Unknown] olanzapine 2.5 mg PO QHS 01/06/20 [History Last Taken Unknown] pioglitazone 30 mg PO DAILY 01/06/20 [History Last Taken Unknown] glimepiride 4 mg PO BID 09/10/20 [History Last Taken Unknown] pantoprazole 40 mg PO DAILY 09/10/20 [History Last Taken Unknown] mirtazapine 7.5 mg PO QHS 09/17/20 [History Last Taken Unknown] Allergy/AdvReac Type Severity Reaction Status Date / Time adhesive tape AdvReac Intermediate Rash Verified 06/01/21 15:23 codeine AdvReac Intermediate Dizziness Verified 06/01/21 15:23 Family History Mother Diabetes Father Heart disease Hypertension Surgical History Hx of appendectomy Hx of cataract surgery Hx of cholecystectomy S/P partial hysterectomy Status post ORIF of fracture of ankle Social History Smoking Status: Never smoker alcohol intake: never substance use type: does not use ROS ROS ED Constitutional Constitutional ED: Denies chills or fever(s) Eyes Eyes: Denies change in vision ENT ENT ED: Denies sore throat Cardiovascular Cardiovascular: Denies chest pain Respiratory/Chest Respiratory/Chest: Denies cough or dyspnea Gastrointestinal Gastrointestinal: Denies abdominal pain, diarrhea, nausea or vomiting Genitourinary Genitourinary ED: Denies dysuria Musculoskeletal Musculoskeletal: Denies back pain Integumentary Denies rash Neurologic Neurologic: Denies headache(s) or weakness Psychiatric Psychiatric: Denies anxiety or depression Endocrine Endocrinology: Denies polydipsia or polyuria Allergic/Immunologic Allergic/Immunologic ED: Denies urticaria EXAM Physical Exam Const Vital Signs: 06/01/21 15:19 06/01/21 16:18 06/01/21 17:05 Temperature 97.1 F L Pulse Rate 80 83 83 Respiratory Rate 15 17 16 Respiratory Effort Normal Respiratory Pattern Irregular Blood Pressure 164/75 H 149/77 H Blood Pressure Mean 104 101 Pulse Ox 100 100 98 Oxygen Delivery Method Room Air Room Air Positive well nourished and well developed General Appearance ED: well developed HEENT Reports normocephalic and head/scalp atraumatic Eyes PERRL and EOMs intact bilaterally Neck supple Chest Wall inspection of chest normal and palpation of chest normal Resp normal respiratory effort and clear to auscultation bilaterally Cardio regular rate and regular rhythm GI normal to inspection, nondistended, normoactive bowel sounds Palpation: soft Extremity normal to inspection Neuro oriented x3 and no sensory deficits noted Sensorium / Orientation: alert Motor Exam: strength 5/5 throughout Psych mental status grossly normal Skin no rashes or lesions noted MDM MDM Lab Data Labs: Laboratory Results - last 24 hr 06/01/21 15:55 POC Glucose 192 H Treatment and Re-Evaluation Comments:: Repeat blood sugar here was 192. Patient was given p.o. diet without difficulty. I spoke with Dr. Morel. Patient is to hold her new diabetes medication and he will see her in the office tomorrow. will be with her this evening. Patient will be discharged to home with family. Disposition: Discharge Impression: Hypoglycemia, improved Discharge Plan Triage Chief Complaint: Hypoglycemia ED Provider: Rosa Elena Page Dx/Rx/DC Orders Clinical Impression: Hypoglycemia Instructions: ED Hypoglycemia Oral Diabetic ... Prescriptions: No Action atorvastatin 40 MG tablet 40 mg PO QHS RF: 0 olanzapine 2.5 MG tablet 2.5 mg PO QHS RF: 0 metformin 1,000 MG tablet 500 mg PO BIDCM RF: 0 pioglitazone 30 MG tablet 30 mg PO DAILY RF: 0 cholecalciferol (vitamin D3) 1,000 UNIT tablet 3,000 unit PO DAILY RF: 0 insulin detemir U-100 100 UNITS/ML insulin pen 40 unit SC BID RF: 0 pantoprazole 40 MG tablet,delayed release (DR/EC) 40 mg PO DAILY RF: 0 glimepiride 4 MG tablet 4 mg PO BID RF: 0 mirtazapine 7.5 MG tablet 7.5 mg PO QHS RF: 0 Primary Care Provider: Crow Morel Chi Referrals: Crow Morel Chi, MD [Primary Care Provider] - 1 Day Disposition Disposition: Home, Self Care Discharge Date/Time: 06/01/21 17:05
[2021-06-01 16:01] LABS: Bedside Glucose 192 mg/dL (70-110)
[2021-06-01 16:18] VITALS: BP 149/77; PULSE 83; RESP 17; O2SAT 100
[2021-06-01 17:05] VITALS: PULSE 83; RESP 16; O2SAT 98
== END 2021-06-01 17:05 | disposition home or self-care (01) ==
PROVIDERS: Emergency Provider Emergency Medicine; PCP Family Medicine Geriatric Medicine
DX: E11.649 Type 2 diabetes mellitus with hypoglycemia without coma (principal); E11.22 Type 2 diabetes mellitus with diabetic chronic kidney disease; E11.36 Type 2 diabetes mellitus with diabetic cataract; D63.1 Anemia in chronic kidney disease; E78.00 Pure hypercholesterolemia, unspecified; N18.30 Chronic kidney disease, stage 3 unspecified; Z79.4 Long term (current) use of insulin; Z90.49 Acquired absence of other specified parts of digestive tract; F32.9 Major depressive disorder, single episode, unspecified
CPT/HCPCS: 82962; 99284

== ENCOUNTER → 2021-09-21 11:31 | Outpatient (CLI) | payer MEDICARE, BC, SELFPAY ==
[2021-09-21 12:59] LABS: Absolute Lymphocyte Count 2.17 X10^3/uL (0.83-4.51); Absolute Neutrophil Count 4.1 X10^3/uL (2.0-7.7); Basophil# 0.03 X10^3/uL; Basophil% 0.4 % (0-1); Eosinophil# 0.23 X10^3/uL; Eosinophils% 3.3 % (0-5); Hematocrit 35.3 % (37-47); Hemoglobin 11.5 g/dL (12.0-15.0); Lymphocyte # 2.17 X10^3/ul (0.83-4.51); Lymphocyte % 30.8 % (19-41); Mean Corp Hgb Conc 32.6 g/dL (32-36); Mean Corpuscular Hgb 28.3 pg (27.0-32.0); Mean Corpuscular Volume 86.7 fL (81-99); Mean Platelet Vol. 11.8 fl (6.2-12.0); Monocyte# 0.47 X10^3/uL; Monocyte% 6.7 % (0-10); NRBC Flagged by Analyzer 0 % (0-5); Neutrophil # 4.08 X10^3/uL (2.7-7.7); Neutrophil % 57.9 % (47-70); Platelet Count 270 K/mm3 (150-450); RBC Distribution Width CV 12.7 % (11.6-14.6); RBC Distribution Width SD 39.8 fl (35.1-43.9); Red Blood Count 4.07 M/mm3 (4.2-5.4)
[2021-09-21 13:13] LABS: Vitamin D,25 Hydroxy 26.7 ng/mL
[2021-09-21 13:28] LABS: ALB/GLOB Ratio 0.7 RATIO (0.9-2.4); AST(SGOT) 18 U/L (15-37); Alanine Aminotransfer ALT/SGPT 25 U/L (13-56); Albumin, Serum 3.2 g/dL (3.2-5.0); Alkaline Phosphatase 151 U/L (45-117); Anion Gap 12 (5-15); BUN 16 mg/dL (7-18); BUN/Creat Ratio 10.3 RATIO (10-20); Calcium,Total 9.3 mg/dL (8.5-10.1); Chloride 93 mmol/L (98-107); Creatinine, Serum 1.56 mg/dL (0.55-1.02); EST Glomerular Filtration Rate 35 mL/min (>60); Est Glom Filt Rate - Afr Amer 42 mL/min (>60); Globulin 4.4 g/dL (2.2-4.2); Glucose 555 mg/dL (74-106); Potassium 3.9 mmol/L (3.5-5.1); Protein, Total 7.6 g/dL (6.4-8.2); Sodium Level 131 mmol/L (136-145); Thyroid Stim Hormone (TSH) 2.24 uIU/mL (0.358-3.74)
[2021-09-21 14:17] LABS: Hemoglobin A1c > 14.0 % (3.8-5.6)
== END ==
PROVIDERS: PCP Family Medicine Geriatric Medicine; Visit Provider Family Medicine Geriatric Medicine
DX: E11.65 Type 2 diabetes mellitus with hyperglycemia (principal); E55.9 Vitamin D deficiency, unspecified; R53.83 Other fatigue
CPT/HCPCS: 36415; 80053; 82306; 83036; 84443; 85025

== ENCOUNTER → 2021-09-25 08:30 | Outpatient (CLI) | payer MEDICARE, BC, SELFPAY | PROVIDERS: PCP Family Medicine Geriatric Medicine; Referring Provider Family Medicine Geriatric Medicine; Visit Provider Family Medicine Geriatric Medicine | DX: E11.9 Type 2 diabetes mellitus without complications (principal) | CPT/HCPCS: 36415; 82533 ==

== ENCOUNTER → 2021-10-19 08:38 | Outpatient (CLI) | payer MEDICARE, BC, SELFPAY | PROVIDERS: PCP Family Medicine Geriatric Medicine; Visit Provider Family Medicine Geriatric Medicine | DX: E24.9 Cushing's syndrome, unspecified (principal) | CPT/HCPCS: 36415; 82533 ==

== ENCOUNTER → 2021-11-04 11:57 | Outpatient (CLI) | payer MEDICARE, BC, SELFPAY ==
[2021-11-06 13:07] LABS: DHEA Sulfate 22.5 ug/dL (20.4-186.6)
[2021-11-06 13:15] LABS: Adrenocorticotropic Hormone 13.9 pg/mL (7.2-63.3)
== END ==
PROVIDERS: PCP Family Medicine Geriatric Medicine; Visit Provider Family Medicine Geriatric Medicine
DX: E24.9 Cushing's syndrome, unspecified (principal)
CPT/HCPCS: 36415; 82024; 82627; 82626

== ENCOUNTER 2021-12-04 07:54 | Outpatient (CLI) | payer MEDICARE, BC, SELFPAY ==
--- NOTE | 2021-12-04 08:30 | MRI_ITS ---
STUDY: MRI ABDOMEN WITH AND WITHOUT CONTRAST REASON FOR EXAM: Female, 66 years old. CUSHINGS SYNDROME, abnormal labs; attn adrenals TECHNIQUE: Standardized fat and water weighted pulse sequences were obtained in all 3 orthogonal planes post contrast administration. IV 21ml Dotarem was administered for the contrast portion of the examination. COMPARISON: None. FINDINGS: Base of the chest is unremarkable. Normal liver. Susceptibility artifact in the gallbladder fossa compatible with previous cholecystectomy. Normal spleen. Normal pancreas. Symmetric adrenal gland is identified without focal nodule. Normal appearance on in phase and out of phase imaging. No abnormal contrast enhancement of the adrenal glands. Normal right kidney. Normal left kidney. Visualized hollow viscus structures are unremarkable in their visualized extent. Normal abdominal aorta. Normal inferior vena cava. Normal retroperitoneum. Normal abdominal wall. No bone marrow edema. MRI/MRI Abd WITH and W/O Contrast IMPRESSION: 1. No adrenal gland mass. 2. Cholecystectomy. Electronically Signed: Avila Niño MD ([place]) at 10:23 EST , Service support ,
== END 2021-12-04 23:59 | disposition short-term general hospital (02) ==
LOC: MRI 07:57
PROVIDERS: PCP Family Medicine Geriatric Medicine; Referring Provider Family Medicine Geriatric Medicine; Visit Provider Family Medicine Geriatric Medicine
DX: E24.9 Cushing's syndrome, unspecified (principal)
CPT/HCPCS: 74183; A9575; A4216

== ENCOUNTER 2021-12-23 10:34 | Outpatient (CLI) | payer MEDICARE, BC, SELFPAY ==
--- NOTE | 2021-12-23 11:50 | RAD_ITS ---
STUDY: X-RAY - LEFT SHOULDER REASON FOR EXAM: Female, 66 years old. PAIN TECHNIQUE: 4 view(s) of the shoulder. COMPARISON: None. FINDINGS: There is mild degenerative arthrosis of the glenohumeral articulation. Normal acromioclavicular joint. Normal acromion. Normal humeral head and visualized proximal humerus. The soft tissue structures are unremarkable. Normal visualized pulmonary apex. RAD/Shoulder min 2 Views IMPRESSION: Degenerative changes of the glenohumeral joint. Electronically Signed: Lee Montenegro MD at 15:38 EST ,
--- NOTE | 2021-12-23 11:50 | RAD_ITS ---
HISTORY: HIP PAIN COMPARISON: None FINDINGS: # of images incl. paperwork: 3 XR Hip Unilateral with Pelvis when performed; 2-3 Views: SOFT TISSUES: No radiodense soft tissue foreign body. Bilateral pelvic surgical suture and phleboliths.. OSSEOUS: No fracture. Normal bilateral hip alignment. Mild bilateral hip joint space narrowing at superior acetabular osteophyte formation. No aggressive osseous lesion. Mild bilateral L4-L5 and L5-S1 facet arthropathy. Mild lumbar endplate degenerative change. BONE MINERALIZATION: Unremarkable. RAD/HIP, UNI W/ Pelvis 2-3 Views IMPRESSION: Mild bilateral hip osteoarthritis. No acute osseous finding. at 0759 Reported and signed by: Mateus Anaya MD Electronically Signed: Mateus Anaya MD at 7:57 EST Reading Location ID and State: [facility] / [place] Tel , Service support ,
[2021-12-23 12:09] LABS: Absolute Neutrophil Count 3.2 X10^3/uL (2.0-7.7); Basophil# 0.03 X10^3/uL; Basophil% 0.5 % (0-1); Eosinophil# 0.18 X10^3/uL; Eosinophils% 3.3 % (0-5); Hematocrit 29.1 % (37-47); Hemoglobin 9.2 g/dL (12.0-15.0); Lymphocyte % 29.1 % (19-41); Mean Corp Hgb Conc 31.6 g/dL (32-36); Mean Corpuscular Hgb 28.8 pg (27.0-32.0); Mean Corpuscular Volume 90.9 fL (81-99); Monocyte# 0.52 X10^3/uL; Monocyte% 9.5 % (0-10); NRBC Flagged by Analyzer 0 % (0-5); Neutrophil # 3.16 X10^3/uL (2.7-7.7); Neutrophil % 57.4 % (47-70); Platelet Count 219 K/mm3 (150-450); RBC Distribution Width CV 13.9 % (11.6-14.6); RBC Distribution Width SD 46.9 fl (35.1-43.9); White Blood Count 5.5 K/mm3 (4.4-11.0)
[2021-12-23 12:31] LABS: Vitamin D,25 Hydroxy 28.7 ng/mL
[2021-12-23 12:42] LABS: ALB/GLOB Ratio 0.8 RATIO (0.9-2.4); AST(SGOT) 23 U/L (15-37); Alanine Aminotransfer ALT/SGPT 26 U/L (13-56); Albumin, Serum 3.4 g/dL (3.2-5.0); Alkaline Phosphatase 113 U/L (45-117); Anion Gap 5 (5-15); BUN 40 mg/dL (7-18); BUN/Creat Ratio 32.5 RATIO (10-20); Calcium,Total 9.2 mg/dL (8.5-10.1); Chloride 108 mmol/L (98-107); Creatinine, Serum 1.23 mg/dL (0.55-1.02); EST Glomerular Filtration Rate 46 mL/min (>60); Est Glom Filt Rate - Afr Amer 56 mL/min (>60); Glucose 122 mg/dL (74-106); Potassium 4.6 mmol/L (3.5-5.1); Protein, Total 7.4 g/dL (6.4-8.2); Sodium Level 141 mmol/L (136-145)
== END 2021-12-23 23:59 | disposition short-term general hospital (02) ==
PROVIDERS: PCP Family Medicine Geriatric Medicine; Visit Provider Family Medicine Geriatric Medicine
DX: M25.512 Pain in left shoulder (principal); E11.65 Type 2 diabetes mellitus with hyperglycemia; M25.552 Pain in left hip; E55.9 Vitamin D deficiency, unspecified; R53.83 Other fatigue
CPT/HCPCS: 36415; 73030; 73502; 80053; 82306; 84443; 85025

== ENCOUNTER 2022-01-07 11:18 | Outpatient (CLI) | payer MEDICARE, BC, SELFPAY ==
--- NOTE | 2022-01-07 11:21 | VDLE_ITS ---
Reason For Study: Edema RIGHT LEFT GSV is normal. GSV is normal. CFV is compressible, spontaneous, phasic, CFV is compressible, spontaneous, phasic, competent and demonstrates normal competent, and demonstrates normal augmentation. augmentation. FV is compressible, spontaneous, phasic, FV is compressible, spontaneous, phasic, competent and demonstrates normal competent and demonstrates normal augmentation. augmentation. POP V is compressible, spontaneous, phasic, POP V is compressible, spontaneous, phasic, competent and demonstrates normal competent and demonstrates normal augmentation. augmentation. T/P Trunk is compressible. T/P Trunk is compressible. PTV is compressible. PTV is compressible. RT PerV is compressible. LT PerV is compressible. Procedure This is a venous duplex using B-mode, color flow and spectral Doppler. Exam performed in department. A preliminary report was called and/or faxed to [facility]. VL/Venous Duplex US - Gildardo Extrem Interpretation Summary Deep veins of the lower extremities are bilaterally patent and compressible seg mentally. There is no evidence of deep vein thrombosis on either side. Valvular competence appears in tact within the proximal deep venous systems bilaterally. The great saphenous veins appear bila terally patent and compressible segmentally. Ordering Physician: Crow Morel Referring Physician: Crow Morel Chi Performed By: Kaela Freire RVT
== END 2022-01-07 23:59 | disposition home or self-care (01) ==
PROVIDERS: PCP Family Medicine Geriatric Medicine; Referring Provider Family Medicine Geriatric Medicine; Visit Provider Family Medicine Geriatric Medicine
DX: R60.0 Localized edema (principal)
CPT/HCPCS: 93970

== ENCOUNTER 2022-01-08 22:17 | Emergency (ER) | payer MEDICARE, BC, SELFPAY ==
[2022-01-08 22:18] VITALS: BP 175/65; PULSE 91; RESP 16; TEMP 36.4; O2SAT 98; BMI 42.7
--- NOTE | 2022-01-08 22:45 | CT_ITS ---
HISTORY: trauma TECHNIQUE: Multiple axial images were obtained of the brain without intravenous contrast. A radiation dose optimization technique was used for this scan. IV Contrast dosage and agent: None. COMPARISON: None FINDINGS: # of images incl. paperwork: 506 PARANASAL SINUSES AND MASTOID AIR CELLS: Clear. INTRACRANIAL HEMORRHAGE: None. BRAIN PARENCHYMA: No CT evidence of stroke. No intracranial masses. There is preservation of the ruggiero/white matter interface. Posterior fossa structures are unremarkable. CSF SPACES: Appropriate for age. There is no hydrocephalus. MASS EFFECT: None. CALVARIUM: Intact. CT/Brain/Head without Contrast IMPRESSION: No acute intracranial findings. Individualized dose optimization techniques were used for this CT. at 2336 Reported and signed by: Wiley Montez MD Electronically Signed: Wiley Montez MD at 23:34 EST ,
--- NOTE | 2022-01-08 22:45 | RAD_ITS ---
HISTORY: trauma EXAMINATION/TECHNIQUE: XR Spine Lumbar 2 or 3 Views: 2 views COMPARISON: None FINDINGS: VERTEBRAE: Preserved vertebral body height. No acute fracture. No spondylolisthesis. Preservation of the normal lumbar lordosis. DISCS: Degenerative disc space narrowing throughout the lumbar spine. INCLUDED ABDOMEN: Included bowel gas pattern is non-obstructive. RAD/Lumbar Spine 2 or 3 Views IMPRESSION: Diffuse degenerative disc disease without acute findings. at 2343 Reported and signed by: Wiley Montez MD Electronically Signed: Wiley Montez MD at 23:42 EST ,
--- NOTE | 2022-01-08 22:45 | RAD_ITS ---
HISTORY: trauma EXAMINATION/TECHNIQUE: XR Shoulder Min 2 Views: COMPARISON: 12/23/21 FINDINGS: BONES/JOINTS: No acute fracture or dislocation. Preservation of the joint spaces. No sclerotic or destructive changes observed. SOFT TISSUES: No soft tissue swelling or gas. No radiopaque foreign body. RAD/Shoulder min 2 Views IMPRESSION: No acute bony abnormality. at 2339 Reported and signed by: Wiley Montez MD Electronically Signed: Wiley Montez MD at 23:38 EST ,
--- NOTE | 2022-01-08 22:45 | RAD_ITS ---
HISTORY: trauma EXAMINATION/TECHNIQUE: XR Pelvis 1 or 2 Views: AP pelvis COMPARISON: 12/23/21 FINDINGS: PELVIC BONES: No displaced fracture, destructive or sclerotic lesions. Note that overlapping bowel shadows may however obscure fine detail. Sacroiliac joints are unremarkable. No widening of the pubic symphisis. HIPS: Stable bilateral hip joint space narrowing. No displaced fracture seen in this frontal view. SOFT TISSUES: Stable surgical sutures in the pelvis. RAD/Pelvis 1 or 2 Views IMPRESSION: No evidence of displaced pelvic or hip fracture. at 2342 Reported and signed by: Wiley Montez MD Electronically Signed: Wiley Montez MD at 23:40 EST ,
--- NOTE | 2022-01-08 22:45 | CT_ITS ---
HISTORY: trauma EXAMINATION: CT Spine Cervical W/O Contrast Injection TECHNIQUE: Helically acquired images were obtained of the cervical spine. 2D reformatted images were reviewed. A radiation dose optimization technique was used for this scan. IV Contrast dosage and agent: None. COMPARISON: None FINDINGS: VERTEBRAE: No fracture or traumatic subluxation. No discrete lytic or blastic abnormality observed. Normal alignment. Normal craniocervical junction and cervicothoracic junction. DISCS and SPINAL CANAL: Degenerative discogenic changes are noted. No critical stenosis. NECK SOFT TISSUES: No prevertebral soft tissue swelling. LUNG APICES: Clear. CT/Spine Cervical without Contras IMPRESSION: Degenerative changes. No evidence of acute cervical spinal fracture. Individualized dose optimization techniques were used for this CT. at 2349 Reported and signed by: Wiley Montez MD Electronically Signed: Wiley Montez MD at 23:48 EST ,
--- NOTE | 2022-01-08 22:47 | EDS_ITS ---
HPI History of Present Illness Chief Complaint: Fall Informant: patient Narrative Narrative: Patient fell at her daughter's house tonight. She states she is pretty sure her sugars were low. She was out at a doctor's appointment today. She had not eaten for a lot of the day because she and her got busy with several trips. They finally got takeout food at a restaurant. They were going to take at home but they decided to go to their daughter's house instead. Patient felt as though she needed to eat. She went to the house. She did fall on a concrete surface. She stated that her head bounced. She hurts all over. However, she states that she always hurts all over and the only area that is new or different really is her right shoulder. Motion makes it slightly worse rest makes it slightly better. PFSH PFS Medical History Anemia Anemia of chronic renal failure, stage 3 (moderate) Back problem Bone fracture Cataracts, bilateral Diabetes type 2, controlled Major depressive disorder, recurrent episode Obstructive sleep apnea on CPAP Pancreatitis Vision problems Wound of skin Home Medications atorvastatin 40 mg PO QHS 01/06/20 [History Last Taken Unknown] cholecalciferol (vitamin D3) 3,000 unit PO DAILY 01/06/20 [History Last Taken Unknown] insulin detemir U-100 40 unit SC BID 01/06/20 [History Last Taken Unknown] metformin 500 mg PO BIDCM 01/06/20 [History Last Taken Unknown] olanzapine 2.5 mg PO QHS 01/06/20 [History Last Taken Unknown] pioglitazone 30 mg PO DAILY 01/06/20 [History Last Taken Unknown] pantoprazole 40 mg PO DAILY 09/10/20 [History Last Taken Unknown] mirtazapine 7.5 mg PO QHS 09/17/20 [History Last Taken Unknown] iron tab PO 01/08/22 [History Last Taken Unknown] Allergy/AdvReac Type Severity Reaction Status Date / Time adhesive tape AdvReac Intermediate Rash Verified 07/15/21 08:40 codeine AdvReac Intermediate Dizziness Verified 07/15/21 08:40 Family History Mother Diabetes Father Heart disease Hypertension Surgical History Hx of appendectomy Hx of cataract surgery Hx of cholecystectomy S/P partial hysterectomy Status post ORIF of fracture of ankle Social History Smoking Status: Never smoker second hand exposure: No alcohol intake: never substance use type: does not use salas/pentecostalism: Alevism seatbelt use: always do you feel safe at home: Yes ROS ROS ED Constitutional Constitutional ED: Reports other Details: Patient has had COVID shots and boosters and has no symptoms. ; Denies fever(s) or subjective Eyes Eyes: Denies change in vision ENT ENT ED: Reports other Details: Slight sore area on posterior right side of scalp. ; Denies rhinorrhea or sore throat Cardiovascular Cardiovascular: Denies chest pain or palpitations Respiratory/Chest Respiratory/Chest: Denies cough or dyspnea Gastrointestinal Gastrointestinal: Denies diarrhea, nausea or vomiting Genitourinary Genitourinary ED: Denies dysuria Musculoskeletal Musculoskeletal: Reports other Details: See history of present illness. Patient also has chronic edema of both lower extremities. This is not new or different. Integumentary Denies Abrasions Neurologic Neurologic: Denies headache(s) or weakness Endocrine Endocrinology: Denies polydipsia or polyuria Hematologic/Lymphatic Hematologic/Lymphatic: Reports other Details: No anticoagulation. ; Denies easy bleeding or easy bruising Allergic/Immunologic Allergic/Immunologic ED: Denies urticaria EXAM Physical Exam Const Vital Signs: 01/08/22 22:18 Temperature 97.6 F L Temperature Source Temporal Pulse Rate 91 Respiratory Rate 16 Blood Pressure 175/65 H Blood Pressure Mean 101 Pulse Ox 98 Oxygen Delivery Method Room Air Positive well nourished, well developed and obese Constitutional Narrative: Patient is awake alert and appropriate when I see her. General Appearance ED: well developed and NAD Nutritional Appearance: obese HEENT HEENT Narrative: I do not see any trauma on her head. She does have a area that is slightly tender in the posterior right occiput. But there is no abrasion or swelling at this point. atraumatic Eyes PERRL and EOMs intact bilaterally Neck Neck Narrative: Patient has mild nonfocal soreness of the neck. But I guess she normally has a lot of arthritic discomfort. There is no step-off. I do not get any focal area of tenderness. General: tenderness Chest Wall inspection of chest normal Chest Narrative: No subcu air. There is slight soreness when palpating the anterior chest. But she states she is not having chest pain. Resp normal respiratory effort and clear to auscultation bilaterally Cardio regular rhythm and no murmurs Rate: regular rate GI normal to inspection, nondistended, normoactive bowel sounds and non-tender GI Narrative: Obese but nontender. Palpation: soft Extremity Extremity Narrative: Bilateral swelling with mild pitting mostly in her feet. She states this has been going on for some time. It is not new or different. I am not getting any focal tenderness. There is no hip tenderness. She does have some lumbar area soreness. Her left shoulder hurts but I really cannot find a focal tender area. Neuro oriented x3 Sensorium / Orientation: alert Psych mental status grossly normal and thought process normal Skin no rashes or lesions noted MDM MDM MDM Narrative Medical decision making narrative: CT is at her head and neck as well as x-rays of lumbar spine pelvis and shoulder do not show any acute process. We will ambulate the patient to make sure she feels okay, is stable and does not develop new areas of discomfort. Initially the patient had trouble getting up and moving. She was encouraged by staff and her daughter. Patient already has occupational and physical therapy. She does not like going because it is a lot of work. She was able to get up and move and walk to the bathroom actually quite stably. I told the patient that there is nothing broken but this does not mean she is not sore. She states that she wished something was broken because that way she could stay in bed for a while. I again encouraged her that mobility is highly important. As she gets older and gains more weight she is at more more risk for becoming bedbound or immobile. She really needs to participate with her physical occupational therapy and weight loss plan. Radiography Diagnostic Testing: Clinical Impression(s) from Imaging Studies Brain CT 01/08/22 22:45 IMPRESSION: No acute intracranial findings. Individualized dose optimization techniques were used for this CT. at 2336 Reported and signed by: Wiley Montez MD Electronically Signed: Wiley Montez MD at 23:34 EST Reading Location ID and State: [facility] / [place] Tel , Service support , Cervical Spine CT 01/08/22 22:45 IMPRESSION: Degenerative changes. No evidence of acute cervical spinal fracture. Individualized dose optimization techniques were used for this CT. at 2349 Reported and signed by: Wiley Montez MD Electronically Signed: Wiley Montez MD at 23:48 EST Reading Location ID and State: [facility] / [place] Tel , Service support , Lumbar Spine X-Ray 01/08/22 22:45 IMPRESSION: Diffuse degenerative disc disease without acute findings. at 2343 Reported and signed by: Wiley Montez MD Electronically Signed: Wiley Montez MD at 23:42 EST Reading Location ID and State: [facility] / [place] Tel , Service support , Pelvis X-Ray 01/08/22 22:45 IMPRESSION: No evidence of displaced pelvic or hip fracture. at 2342 Reported and signed by: Wiley Montez MD Electronically Signed: Wiley Montez MD at 23:40 EST , Shoulder X-Ray 01/08/22 22:45 IMPRESSION: No acute bony abnormality. at 2339 Reported and signed by: Wiley Montez MD Electronically Signed: Wiley Montez MD at 23:38 EST , Discharge Plan Triage Chief Complaint: Fall ED Provider: Ren Israel Dx/Rx/DC Orders Clinical Impression: Fall at home, History of hypoglycemia, Contusion of left shoulder, Closed head injury Instructions: ED Head Injury (Adult), ED Fall Prevention Prescriptions: No Action atorvastatin 40 MG tablet 40 mg PO QHS RF: 0 olanzapine 2.5 MG tablet 2.5 mg PO QHS RF: 0 metformin 1,000 MG tablet 500 mg PO BIDCM RF: 0 pioglitazone 30 MG tablet 30 mg PO DAILY RF: 0 cholecalciferol (vitamin D3) 1,000 UNIT tablet 3,000 unit PO DAILY RF: 0 insulin detemir U-100 100 UNITS/ML insulin pen 40 unit SC BID RF: 0 pantoprazole 40 MG tablet,delayed release (DR/EC) 40 mg PO DAILY RF: 0 mirtazapine 7.5 MG tablet 7.5 mg PO QHS RF: 0 iron 50 mg iron Tablet PO RF: 0 Primary Care Provider: Crow Morel Chi Referrals: Crow Morel Chi, MD [Primary Care Provider] - 3-5 Days if not improving Disposition Disposition: Home, Self Care
[2022-01-09] MEDS: Acetaminophen 500 MG Tablet 1000 MG PO (00:04)
[2022-01-09 00:30] VITALS: BP 138/74; PULSE 75; RESP 17; O2SAT 98
== END 2022-01-09 00:31 | disposition home or self-care (01) ==
PROVIDERS: Emergency Provider Emergency Medicine; PCP Family Medicine Geriatric Medicine; Visit Provider Emergency Medicine
DX: S09.90XA Unspecified injury of head, initial encounter (principal); E11.22 Type 2 diabetes mellitus with diabetic chronic kidney disease; N18.30 Chronic kidney disease, stage 3 unspecified; F32.9 Major depressive disorder, single episode, unspecified; G47.33 Obstructive sleep apnea (adult) (pediatric); W19.XXXA Unspecified fall, initial encounter; Y92.009 Unspecified place in unspecified non-institutional (private) residence as the place of occurrence of the external cause
CPT/HCPCS: 70450; 72100; 72125; 72170; 73030; 99283

== ENCOUNTER 2022-01-11 11:35 | Outpatient (CLI) | payer MEDICARE, BC, SELFPAY ==
--- NOTE | 2022-01-11 11:42 | CT_ITS ---
STUDY: CT SCAN SHOULDER LEFT REASON FOR EXAM: Female, 66 years old. SHOULDER PAIN, STRESS FX SUSPECTED RADIATION DOSAGE (If Supplied By Facility): CTDIvol = ( 38.40 ) mGy, DLP = ( 3037.49 ) mGycm. Individualized dose optimization techniques were used for this CT.? TECHNIQUE: Multiple axial tomographic images of the left shoulder were obtained without intravenous contrast administration. Coronal and sagittal reconstruction was obtained as well. COMPARISON: None. FINDINGS: Mild degree of osteoarthritis and joint space narrowing of the glenohumeral joint. There is no evidence of subluxation. Degenerative changes of the left acromioclavicular joint. CT/Extremity Upper without Contra IMPRESSION: Degenerative changes. No fracture or dislocation is seen. Electronically Signed: Lee Montenegro MD at 12:40 EST ,
== END 2022-01-11 23:59 | disposition home or self-care (01) ==
PROVIDERS: PCP Family Medicine Geriatric Medicine; Referring Provider Family Medicine Geriatric Medicine; Visit Provider Family Medicine Geriatric Medicine
DX: M25.519 Pain in unspecified shoulder (principal); M25.539 Pain in unspecified wrist; M25.529 Pain in unspecified elbow
CPT/HCPCS: 73200

== ENCOUNTER 2022-01-14 11:51 | Outpatient (CLI) | payer MEDICARE, BC, SELFPAY ==
[2022-01-14 12:37] LABS: Hematocrit 30.1 % (37-47); Hemoglobin 9.8 g/dL (12.0-15.0); Mean Corp Hgb Conc 32.6 g/dL (32-36); Mean Corpuscular Volume 89.1 fL (81-99); Mean Platelet Vol. 10.6 fl (6.2-12.0); Platelet Count 235 K/mm3 (150-450); RBC Distribution Width SD 42.2 fl (35.1-43.9); Red Blood Count 3.38 M/mm3 (4.2-5.4); White Blood Count 5.9 K/mm3 (4.4-11.0)
[2022-01-14 12:46] LABS: Protein, Urine (Random) 33.2 mg/dL (<11.9); Protein:Creat Ratio 974 mg/g CRE (0-200)
[2022-01-14 12:48] LABS: Albumin, Serum 3.5 g/dL (3.2-5.0); BUN 39 mg/dL (7-18); BUN/Creat Ratio 33.1 RATIO (10-20); Calcium,Total 9.3 mg/dL (8.5-10.1); Chloride 105 mmol/L (98-107); Creatinine, Serum 1.18 mg/dL (0.55-1.02); EST Glomerular Filtration Rate 48 mL/min (>60); Est Glom Filt Rate - Afr Amer 59 mL/min (>60); Glucose 99 mg/dL (74-106); Phosphorus 3.6 mg/dL (2.5-4.9); Potassium 4.8 mmol/L (3.5-5.1); Sodium Level 137 mmol/L (136-145)
== END 2022-01-14 23:59 | disposition home or self-care (01) ==
LOC: POLAB3 11:52
PROVIDERS: PCP Family Medicine Geriatric Medicine; Visit Provider Internal Medicine Nephrology
DX: N18.31 Chronic kidney disease, stage 3a (principal); E11.22 Type 2 diabetes mellitus with diabetic chronic kidney disease; D50.9 Iron deficiency anemia, unspecified; N39.0 Urinary tract infection, site not specified
CPT/HCPCS: 36415; 80069; 82570; 84156; 85027; 87086; 87088

== ENCOUNTER 2022-01-21 11:06 | Outpatient (CLI) | payer MEDICARE, BC, SELFPAY ==
[2022-01-21 12:46] LABS: Anion Gap 4 (5-15); BUN 40 mg/dL (7-18); Calcium,Total 9.6 mg/dL (8.5-10.1); Chloride 102 mmol/L (98-107); Creatinine, Serum 1.29 mg/dL (0.55-1.02); EST Glomerular Filtration Rate 44 mL/min (>60); Est Glom Filt Rate - Afr Amer 53 mL/min (>60); Glucose 186 mg/dL (74-106); Potassium 4.7 mmol/L (3.5-5.1); Sodium Level 138 mmol/L (136-145)
== END 2022-01-21 23:59 | disposition home or self-care (01) ==
LOC: POLAB3 11:07
PROVIDERS: PCP Family Medicine Geriatric Medicine; Visit Provider Family Medicine Geriatric Medicine
DX: N18.32 Chronic kidney disease, stage 3b (principal)
CPT/HCPCS: 36415; 80048

== ENCOUNTER 2022-02-01 11:06 | Outpatient (CLI) | payer MEDICARE, BC, SELFPAY ==
[2022-02-01 12:18] LABS: Anion Gap 3 (5-15); BUN 42 mg/dL (7-18); Chloride 100 mmol/L (98-107); Creatinine, Serum 1.45 mg/dL (0.55-1.02); EST Glomerular Filtration Rate 38 mL/min (>60); Est Glom Filt Rate - Afr Amer 46 mL/min (>60); Glucose 167 mg/dL (74-106); Potassium 4.7 mmol/L (3.5-5.1); Sodium Level 138 mmol/L (136-145)
== END 2022-02-01 23:59 | disposition home or self-care (01) ==
LOC: POLAB3 11:06
PROVIDERS: PCP Family Medicine Geriatric Medicine; Visit Provider Family Medicine Geriatric Medicine
DX: E24.9 Cushing's syndrome, unspecified (principal)
CPT/HCPCS: 36415; 80048

== ENCOUNTER 2022-02-17 14:39 | Inpatient (IN) | payer MEDICARE, BC, SELFPAY ==
[2022-02-17 14:45] VITALS: BMI 39.6
[2022-02-17 14:57] VITALS: BP 114/58; PULSE 70; RESP 14; TEMP 36.4; O2SAT 97
[2022-02-17 15:15] VITALS: BP 114/58; PULSE 70; RESP 14; TEMP 36.4; O2SAT 97
[2022-02-17] MEDS: metFORMIN HCl 1,000 MG Tablet 1000 MG PO (17:51)
[2022-02-17] MEDS: Menthol/Lanolin/Calamine/Znox 113 GM Tube 1 APPLIC TOPICAL (17:51)
[2022-02-17] MEDS: Nystatin Powder 15gm Bottle 1 APPLIC TOPICAL (18:24)
--- NOTE | 2022-02-17 20:16 | NURSING ---
Received bottle of patient home med (Korlym) from pharmacy, med verified and labeled by pharmacy. Per pharmacy store in patient locked med box in room.
--- NOTE | 2022-02-17 20:36 | PCM.HP.STD ---
HPI - General General Date of Admission: 02/17/22 HPI Narrative 02/03/2022 LA DORMAN, is a 66 Female who presents to [facility] Emergency Department with near syncope. Found on floor, incoherent. Pressured speech, difficulty speaking. 02/03/2022 Admit to [facility]. Acute kidney injury improved with IV fluids. Urine culture negative. CT brain negative, MRI brain negative, MRA head negative. Doppler ultrasound bilateral lower extremity negative DVT. Influenza negative, covid19 negative. A1c 9.5. Needs new psychiatrist. 02/07/2022 Discharge to [facility] in [place], [place]. 02/15/2022 Family took patient home from [facility], dissatisfied with care. 02/17/2022 Admit to TCU with debility, here for rehabilitation, strengthening, prior to discharge home with . [facility] Medical History Anemia Anemia of chronic renal failure, stage 3 (moderate) Back problem Bone fracture Cataracts, bilateral Diabetes type 2, controlled Major depressive disorder, recurrent episode Obstructive sleep apnea on CPAP Pancreatitis Vision problems Wound of skin Home Medications atorvastatin 40 mg PO QHS 01/06/20 [History Last Taken Unknown] cholecalciferol (vitamin D3) 25 mcg PO DAILY 01/06/20 [History Last Taken Unknown] insulin detemir U-100 40 unit SC BID 01/06/20 [History Last Taken Unknown] metformin 1,000 mg PO BIDCM 01/06/20 [History Last Taken Unknown] olanzapine 5 mg PO QHS 01/06/20 [History Last Taken Unknown] pioglitazone 30 mg PO DAILY 01/06/20 [History Last Taken Unknown] pantoprazole 40 mg PO DAILY 09/10/20 [History Last Taken Unknown] mirtazapine 7.5 mg PO QHS 09/17/20 [History Last Taken Unknown] iron 1 tab PO 01/08/22 [History Last Taken Unknown] furosemide 40 mg PO DAILY 02/17/22 [History Last Taken Unknown] insulin degludec [Tresiba FlexTouch U-200] 28 unit SUBCUT QHS 02/17/22 [History Last Taken Unknown] mifepristone [Korlym] 300 mg PO DAILY 02/17/22 [History Last Taken Unknown] spironolactone 50 mg PO DAILY 02/17/22 [History Last Taken Unknown] Allergy/AdvReac Type Severity Reaction Status Date / Time adhesive tape AdvReac Intermediate Rash Verified 07/15/21 08:40 codeine AdvReac Intermediate Dizziness Verified 07/15/21 08:40 Family History Mother Diabetes Father Heart disease Hypertension Surgical History Hx of appendectomy Hx of cataract surgery Hx of cholecystectomy S/P partial hysterectomy Status post ORIF of fracture of ankle Social History (Updated 02/17/22 @ 20:[address] Crow Morel MD) household members: spouse Smoking Status: Never smoker second hand exposure: No alcohol intake: never substance use type: does not use salas/yazidism: Muslim seatbelt use: always do you feel safe at home: Yes ROS Constitutional Constitutional: Denies chills, fever(s) or weight gain ENT HEENT: Denies headache(s), nasal congestion or nasal discharge Cardiovascular Cardiovascular: Denies chest pain or palpitations Respiratory/Chest Respiratory/Chest: Denies cough, excessive phlegm production or shortness of breath with exertion Gastrointestinal Gastrointestinal: Denies abdominal pain, nausea or vomiting Genitourinary Genitourinary: Denies dysuria Musculoskeletal Musculoskeletal: Denies joint pain or joint swelling Integumentary Integumentary: Denies rash or wounds Neurologic Neurologic: Denies focal weakness, numbness or tingling Psychiatric Psychiatric: Denies anxiety, auditory hallucinations, depression, homicidal ideation or suicidal ideation Vital Signs Vital Signs Vital Signs: 02/17/22 14:57 02/17/22 15:15 02/17/22 15:21 Temperature 97.5 F L 97.5 F L Temperature Source Oral Oral Pulse Rate 70 70 Respiratory Rate 14 14 Respiratory Effort Normal Respiratory Depth Normal Respiratory Pattern Normal Blood Pressure 114/58 L 114/58 L Blood Pressure Mean 76 76 Blood Pressure Source Monitor Monitor Blood Pressure Position Sitting Sitting Blood Pressure Location Right Arm Right Arm Pulse Ox 97 97 Oxygen Delivery Method Room Air Room Air Room Air Weight Weight: 95.028 kg Body Mass Index (BMI) 39.6 Physical Exam Const alert General Appearance: cooperative HEENT normocephalic Eyes PERRL and EOMs intact bilaterally Neck supple, no JVD and no carotid bruits Resp normal respiratory effort, normal air movement and clear to auscultation bilaterally Cardio regular rate and regular rhythm GI normal to inspection, nondistended, normoactive bowel sounds, non-tender and non-distended Extremity normal capillary refill General Extremity: Negative for edema Skin no rashes or lesions noted General Skin Exam: no breakdown Psych affect normal Appearance: appropriate Results Lab / Micro Data Micro: Microbiology 02/17/22 15:15 Nasal Secretion SARS-CoV-2 Antigen (Rapid) - Final Assessment & Plan Assessment/Plan (1) Debility: (2) Near syncope: (3) Encephalopathy: (4) Acute kidney injury: (5) Laura syndrome: (6) Hypokalemia: (7) Edema: (8) Diabetes mellitus: (9) Chronic kidney disease, stage 3a: (10) Depression: (11) Morbid obesity: (12) Hyperlipidemia: (13) Gastroesophageal reflux disease: (14) Obstructive sleep apnea: PLAN: 66 year old female with below past medical history hospitalized for near syncope, acute encephalopathy, acute kidney injury, stroke ruled out, admitted to TCU with debility, here for rehabilitation, strengthening, prior to discharge home with . Debility - PT/OT. Pain - Tylenol 1000mg q6h prn pain (1-10). Bowel - Miralax 17gm daily, Senna/colace 1 tablet bid, Dulcolax 10mg daily prn. Adult immunization - Administer prevnar 20, fluzone, covid19 vaccine as appropriate. DVT prophylaxis - HAS-BLED score 1 intermediate risk, Vane score 4 high risk fo thromboembolism, overall risk low, hold chemoprophylaxis. Hyperlipidemia - Atorvastatin 40mg qhs. Vitamin D deficiency - D3 25mcg daily. Edema - Furosemide 40mg daily, Aldactone 50mg daily. Diabetes Mellitus II - Metformin 1000mg bidcm, Pioglitazone 30mg daily, Glargine 30 units qhs. Skin irritation - Calmoseptine topical bid. [place] Syndrome - Korlym 300mg daily. Depression - Mirtazapine 7.5mg qhs, Zyprexa 2.5mg qhs, stable chronic terminal manager use, GDR not recommended. Tinea Corporis - Nystatin powder topical bid. GERD - Pantoprazole 40mg daily.
[2022-02-17] MEDS: Atorvastatin Calcium 40 MG Tablet PO (22:03)
[2022-02-17] MEDS: OLANZapine 2.5 MG Tablet PO (22:04)
[2022-02-17] MEDS: Mirtazapine 15 MG Tablet 7.5 MG PO (22:10)
[2022-02-17] MEDS: Insulin Glargine-YFGN 100 UNIT/ML Pen 30 UNIT SC (22:14)
[2022-02-17 22:31] LABS: Bedside Glucose 341 mg/dL (74-106)
[2022-02-18] MEDS: Polyethylene Glycol 3350 17 GM PACKET PO (05:24)
[2022-02-18] MEDS: Senna/Docusate Sodium 1 Tablet PO ×2 (05:25→17:51)
[2022-02-18] MEDS: Spironolactone 50 MG Tablet PO (05:26)
[2022-02-18] MEDS: Furosemide 40 MG Tablet PO (05:26)
[2022-02-18] MEDS: Cholecalciferol (VIT D3) 25 MCG TABLET (1,000 UNITS) PO (05:26)
[2022-02-18] MEDS: Pantoprazole Sodium 40 MG Tablet PO (05:26)
[2022-02-18] MEDS: Pioglitazone Hydrochloride 30 MG Tablet PO (05:30)
[2022-02-18] MEDS: Menthol/Lanolin/Calamine/Znox 113 GM Tube 1 APPLIC TOPICAL (05:33)
[2022-02-18] MEDS: Nystatin Powder 15gm Bottle 1 APPLIC TOPICAL (05:33)
[2022-02-18 05:49] LABS: Absolute Lymphocyte Count 1.38 X10^3/uL (0.83-4.51); Absolute Neutrophil Count 2.7 X10^3/uL (2.0-7.7); Basophil# 0.01 X10^3/uL; Basophil% 0.2 % (0-1); Eosinophil# 0.18 X10^3/uL; Eosinophils% 3.9 % (0-5); Hematocrit 30.2 % (37-47); Lymphocyte # 1.38 X10^3/ul (0.83-4.51); Lymphocyte % 29.9 % (19-41); Mean Corp Hgb Conc 33.1 g/dL (32-36); Mean Corpuscular Hgb 28.7 pg (27.0-32.0); Mean Corpuscular Volume 86.5 fL (81-99); Mean Platelet Vol. 10.3 fl (6.2-12.0); Monocyte# 0.39 X10^3/uL; Monocyte% 8.4 % (0-10); NRBC Flagged by Analyzer 0 % (0-5); Neutrophil # 2.65 X10^3/uL (2.7-7.7); Neutrophil % 57.4 % (47-70); Platelet Count 201 K/mm3 (150-450); RBC Distribution Width SD 40.6 fl (35.1-43.9); Red Blood Count 3.49 M/mm3 (4.2-5.4); White Blood Count 4.6 K/mm3 (4.4-11.0)
[2022-02-18 06:13] LABS: Anion Gap 5 (5-15); BUN 19 mg/dL (7-18); BUN/Creat Ratio 14.6 RATIO (10-20); Calcium,Total 8.3 mg/dL (8.5-10.1); Chloride 100 mmol/L (98-107); EST Glomerular Filtration Rate 43 mL/min (>60); Est Glom Filt Rate - Afr Amer 52 mL/min (>60); Estimated Creatinine Clearance 31.25 ml/min; Glucose 217 mg/dL (74-106); Potassium 3.8 mmol/L (3.5-5.1); Sodium Level 137 mmol/L (136-145)
[2022-02-18 06:36] LABS: Bedside Glucose 200 mg/dL (74-106)
[2022-02-18] MEDS: metFORMIN HCl 1,000 MG Tablet 1000 MG PO ×2 (08:14→17:50)
[2022-02-18] MEDS: Insulin Lispro 100 UNIT/ML INSULN.PEN 10 UNIT SC (08:22)
[2022-02-18 08:29] LABS: Hemoglobin A1c 8.5 % (3.8-5.6)
[2022-02-18 10:00] VITALS: PULSE 72; RESP 16; O2SAT 97
--- NOTE | 2022-02-18 10:48 | CASEMGMT ---
Social Work Met with patient for initial assessment. Introduced self and role. Pt wishes to have and dtr be involved in updates/DC plans. Discussed code status and MOLST form. Pt confirmed full code. MOLST communicated to , placed in chart. Explained Medicare benefit and pt admitted to TCU on day since used at previous SNF. Encouraged to contact secondary insurance to ensure copay coverage. The goal is for pt to return home with . SW to continue to follow. DIMAS RameyW
[2022-02-18] MEDS: Tuberculin,Purif.prot.deriv. 50 TU/ML Vial 0.1 ML ID (10:51)
--- NOTE | 2022-02-18 11:09 | NURSING ---
PT STATED TO THIS NURSE THAT SOME TIMES HER LEFT ARM GOES NUMB. ASKED PT HOW LONG IT HAS BEEN GOING ON,PT STATED BEFORE I GOT HERE AND I THINK IT WAS FROM MY FALL. WILL CONTINUE TO MONITOR AND RN AWARE.
[2022-02-18 11:11] LABS: Bedside Glucose 136 mg/dL (74-106)
[2022-02-18] MEDS: Insulin Lispro 100 UNIT/ML INSULN.PEN SC ×2 (12:04→17:49)
[2022-02-18 15:34] VITALS: BP 117/56; PULSE 70; RESP 14; TEMP 36.6; O2SAT 93
[2022-02-18 16:11] LABS: Bedside Glucose 129 mg/dL (74-106)
[2022-02-18] MEDS: Mirtazapine 15 MG Tablet 7.5 MG PO (21:46)
[2022-02-18] MEDS: Insulin Glargine-YFGN 100 UNIT/ML Pen 30 UNIT SC (21:47)
[2022-02-18] MEDS: Atorvastatin Calcium 40 MG Tablet PO (21:47)
[2022-02-18] MEDS: OLANZapine 2.5 MG Tablet PO (21:47)
[2022-02-18 21:52] LABS: Bedside Glucose 145 mg/dL (74-106)
[2022-02-19] MEDS: Pioglitazone Hydrochloride 30 MG Tablet PO (05:56)
[2022-02-19] MEDS: Pantoprazole Sodium 40 MG Tablet PO (05:56)
[2022-02-19] MEDS: Furosemide 40 MG Tablet PO (05:56)
[2022-02-19] MEDS: Cholecalciferol (VIT D3) 25 MCG TABLET (1,000 UNITS) PO (05:56)
[2022-02-19] MEDS: Spironolactone 50 MG Tablet PO (05:57)
[2022-02-19] MEDS: Menthol/Lanolin/Calamine/Znox 113 GM Tube 1 APPLIC TOPICAL ×2 (05:59→16:48)
[2022-02-19] MEDS: Nystatin Powder 15gm Bottle 1 APPLIC TOPICAL (05:59)
[2022-02-19 06:21] LABS: Bedside Glucose 131 mg/dL (74-106)
[2022-02-19] MEDS: metFORMIN HCl 1,000 MG Tablet 1000 MG PO ×2 (08:10→16:45)
[2022-02-19] MEDS: Insulin Lispro 100 UNIT/ML INSULN.PEN SC ×3 (08:10→16:45)
[2022-02-19 10:55] LABS: Bedside Glucose 227 mg/dL (74-106)
[2022-02-19 13:43] VITALS: BP 118/57; PULSE 80; RESP 16; TEMP 36.6; O2SAT 94
[2022-02-19 16:41] LABS: Bedside Glucose 147 mg/dL (74-106)
[2022-02-19 20:48] VITALS: PULSE 91; RESP 18; O2SAT 98
[2022-02-19] MEDS: Insulin Glargine-YFGN 100 UNIT/ML Pen 30 UNIT SC (21:58)
[2022-02-19 22:01] LABS: Bedside Glucose 189 mg/dL (74-106)
[2022-02-19] MEDS: OLANZapine 2.5 MG Tablet PO (22:04)
[2022-02-19] MEDS: Mirtazapine 15 MG Tablet 7.5 MG PO (22:04)
[2022-02-19] MEDS: Atorvastatin Calcium 40 MG Tablet PO (22:05)
[2022-02-20] MEDS: Cholecalciferol (VIT D3) 25 MCG TABLET (1,000 UNITS) PO (05:49)
[2022-02-20] MEDS: Pantoprazole Sodium 40 MG Tablet PO (05:49)
[2022-02-20] MEDS: Spironolactone 50 MG Tablet PO (05:50)
[2022-02-20] MEDS: Furosemide 40 MG Tablet PO (05:50)
[2022-02-20] MEDS: Senna/Docusate Sodium 1 Tablet PO (05:50)
[2022-02-20] MEDS: Pioglitazone Hydrochloride 30 MG Tablet PO (05:51)
[2022-02-20] MEDS: Menthol/Lanolin/Calamine/Znox 113 GM Tube 1 APPLIC TOPICAL ×2 (05:51→17:53)
[2022-02-20] MEDS: Nystatin Powder 15gm Bottle 1 APPLIC TOPICAL ×2 (05:53→17:53)
[2022-02-20 06:41] LABS: Bedside Glucose 105 mg/dL (74-106)
[2022-02-20] MEDS: metFORMIN HCl 1,000 MG Tablet 1000 MG PO (08:24)
[2022-02-20] MEDS: Insulin Lispro 100 UNIT/ML INSULN.PEN SC ×2 (08:25→13:16)
[2022-02-20 11:26] LABS: Bedside Glucose 130 mg/dL (74-106)
[2022-02-20 16:00] VITALS: BP 118/57; PULSE 80; RESP 16; TEMP 36.6; O2SAT 94
[2022-02-20 16:11] LABS: Bedside Glucose 66 mg/dL (74-106)
[2022-02-20 16:21] LABS: Bedside Glucose 56 mg/dL (74-106)
[2022-02-20 16:36] LABS: Bedside Glucose 61 mg/dL (74-106)
--- NOTE | 2022-02-20 16:36 | NURSING ---
ASSEMBLER FITTER came and got this nurse to report blood sugar of 66, pt given orange juice and crackers and rechecked in 15 mins BS 56. Another 240cc of orange juice, lornadoons and peanut butter given to pt but pt hesitant to drink orange juice or eat snacks but complied after some encouragement. BS rechecked 15 mins later and came up to 61, staff continued to encourage intake and rechecked at approx 1650 and came up to 74 .
[2022-02-20 17:01] LABS: Bedside Glucose 74 mg/dL (74-106)
[2022-02-20] MEDS: OLANZapine 2.5 MG Tablet PO (22:26)
[2022-02-20] MEDS: Atorvastatin Calcium 40 MG Tablet PO (22:26)
[2022-02-20] MEDS: Mirtazapine 15 MG Tablet 7.5 MG PO (22:27)
[2022-02-20 22:41] LABS: Bedside Glucose 184 mg/dL (74-106)
[2022-02-21] MEDS: Pioglitazone Hydrochloride 30 MG Tablet PO (06:29)
[2022-02-21] MEDS: Pantoprazole Sodium 40 MG Tablet PO (06:29)
[2022-02-21] MEDS: Cholecalciferol (VIT D3) 25 MCG TABLET (1,000 UNITS) PO (06:29)
[2022-02-21] MEDS: Spironolactone 50 MG Tablet PO (06:29)
[2022-02-21] MEDS: Furosemide 40 MG Tablet PO (06:30)
[2022-02-21 06:32] VITALS: BP 138/48; PULSE 72
[2022-02-21 07:01] LABS: Bedside Glucose 169 mg/dL (74-106)
[2022-02-21] MEDS: Insulin Lispro 100 UNIT/ML INSULN.PEN SC (08:38)
[2022-02-21] MEDS: metFORMIN HCl 1,000 MG Tablet 1000 MG PO ×2 (08:38→17:46)
[2022-02-21 11:16] LABS: Bedside Glucose 164 mg/dL (74-106)
[2022-02-21 16:00] VITALS: BP 130/65; PULSE 76; RESP 16; TEMP 36.1; O2SAT 94
[2022-02-21 16:10] LABS: Bedside Glucose 173 mg/dL (74-106)
[2022-02-21] MEDS: Menthol/Lanolin/Calamine/Znox 113 GM Tube 1 APPLIC TOPICAL (17:47)
[2022-02-21] MEDS: Nystatin Powder 15gm Bottle 1 APPLIC TOPICAL (17:47)
[2022-02-21 21:05] LABS: Bedside Glucose 270 mg/dL (74-106)
--- NOTE | 2022-02-21 21:15 | NURSING ---
Pt refuses hs care. Does not want to change into a gown. Wishes to leave jeans on for the night.
[2022-02-21] MEDS: Atorvastatin Calcium 40 MG Tablet PO (21:16)
[2022-02-21] MEDS: Mirtazapine 15 MG Tablet 7.5 MG PO (21:16)
[2022-02-21] MEDS: OLANZapine 2.5 MG Tablet PO (21:16)
[2022-02-21] MEDS: Insulin Glargine-YFGN 100 UNIT/ML Pen 20 UNIT SC (21:17)
[2022-02-22] MEDS: Cholecalciferol (VIT D3) 25 MCG TABLET (1,000 UNITS) PO (06:24)
[2022-02-22] MEDS: Pantoprazole Sodium 40 MG Tablet PO (06:25)
[2022-02-22] MEDS: Furosemide 40 MG Tablet PO (06:25)
[2022-02-22] MEDS: Pioglitazone Hydrochloride 30 MG Tablet PO (06:25)
[2022-02-22] MEDS: Spironolactone 50 MG Tablet PO (06:26)
[2022-02-22 06:28] VITALS: BP 127/54; PULSE 69
[2022-02-22 06:46] LABS: Bedside Glucose 118 mg/dL (74-106)
[2022-02-22] MEDS: metFORMIN HCl 1,000 MG Tablet 1000 MG PO ×2 (08:45→17:20)
--- NOTE | 2022-02-22 09:28 | NURSING ---
Glucerna discontinued, pt refusing to take.
[2022-02-22 10:15] VITALS: PULSE 74; RESP 18; O2SAT 95
[2022-02-22 10:35] LABS: Bedside Glucose 224 mg/dL (74-106)
--- NOTE | 2022-02-22 11:02 | PHA.CONS1_ITS ---
Progress Note - Pharmacy Subjective: [66yof admitted to TCU for debility, need for strength and conditioning from an another facility, recent admit at [facility] for near syncope, BALDO.] Objective: Allergies adhesive tape Adverse Reaction (Intermediate, Verified 07/15/21 08:40) Rash codeine Adverse Reaction (Intermediate, Verified 07/15/21 08:40) Dizziness Current Medications Generic Name Dose Route Start Last Admin Trade Name Freq PRN Reason Stop Dose Admin Acetaminophen 1,000 mg 02/17/22 20:52 Acetaminophen 500 Mg Tablet PO Q6H PRN PRN Pain Score 1-10 Atorvastatin Calcium 40 mg 02/17/22 22:00 02/21/22 21:16 Atorvastatin Calcium 40 Mg Tablet PO 40 mg QHS NELLIE Administration Bisacodyl 10 mg 02/17/22 20:52 Bisacodyl 5 Mg Tablet PO DAILY PRN Constipation Calamine/Phenol 1 applic 02/17/22 18:00 02/22/22 06:19 Menthol/Lanolin/Calamine/Znox 113 Gm Tube TOPICAL Not Given BID NELLIE Protocol Cholecalciferol 25 mcg 02/18/22 06:00 02/22/22 06:24 Cholecalciferol (Vit D3) 25 Mcg Tablet (1,000 Units) PO 25 mcg DAILY NELLIE Administration Furosemide 40 mg 02/18/22 06:00 02/22/22 06:25 Furosemide 40 Mg Tablet PO 40 mg DAILY NELLIE Administration Metformin HCl 1,000 mg 02/17/22 17:00 02/22/22 08:45 Metformin Hcl 1,000 Mg Tablet PO 1,000 mg BIDCM NELLIE Administration Mirtazapine 7.5 mg 02/17/22 22:00 02/21/22 21:16 Mirtazapine 15 Mg Tablet PO 7.5 mg QHS NELLIE Administration Nystatin 1 applic 02/17/22 18:00 02/22/22 07:10 Nystatin Powder 15gm Bottle TOPICAL Not Given BID NELLIE Protocol Olanzapine 2.5 mg 02/17/22 22:00 02/21/22 21:16 Olanzapine 2.5 Mg Tablet PO 2.5 mg QHS NELLIE Administration Pantoprazole Sodium 40 mg 02/18/22 06:00 02/22/22 06:25 Pantoprazole Sodium 40 Mg Tablet PO 40 mg DAILY NELLIE Administration Pioglitazone HCl 30 mg 02/18/22 06:00 02/22/22 06:25 Pioglitazone Hydrochloride 30 Mg Tablet PO 30 mg DAILY NELLIE Administration Polyethylene Glycol 17 gm 02/18/22 06:00 02/22/22 07:09 Polyethylene Glycol 3350 17 Gm Packet PO Not Given DAILY NELLIE Senna/Docusate Sodium 1 tablet 02/18/22 06:00 02/22/22 06:24 Senna/Docusate Sodium 1 Tablet PO Not Given BID NELLIE Spironolactone 50 mg 02/18/22 06:00 02/22/22 06:26 Spironolactone 50 Mg Tablet PO 03/09/22 06:00 50 mg DAILY NELLIE Administration Tuberculin PPD 0.1 ml 02/25/22 10:00 Tuberculin,Purif.Prot.Deriv. 50 Tu/Ml Vial ID 02/25/22 10:01 X1 ONE Problem List (Last Reviewed 02/17/22 @ 20:[address] Crow Morel MD) Obstructive sleep apnea (Acute) Gastroesophageal reflux disease (Acute) Hyperlipidemia (Acute) Morbid obesity (Acute) Depression (Acute) Chronic kidney disease, stage 3a (Chronic) Diabetes mellitus (Acute) Edema (Acute) Hypokalemia (Acute) Laura syndrome (Acute) Acute kidney injury (Acute) Encephalopathy (Acute) Near syncope (Acute) Debility (Acute) Vital Signs Temp Pulse Resp BP Pulse Ox 97.0 F L 69 16 127/54 H 94 02/21/22 16:00 02/22/22 06:28 02/21/22 16:00 02/22/22 06:28 02/21/22 16:00 Oxygen Delivery Method Room Air Weight: 95.028 kg Body Mass Index (BMI) 39.6 Sodium 137 mmol/L (136-145) 02/18/22 05:17 Potassium 3.8 mmol/L (3.5-5.1) 02/18/22 05:17 Chloride 100 mmol/L (98-107) 02/18/22 05:17 Carbon Dioxide 32.0 mmol/L (21.0-32.0) 02/18/22 05:17 Anion Gap 5 (5-15) 02/18/22 05:17 BUN 19 mg/dL (7-18) H 02/18/22 05:17 Creatinine 1.30 mg/dL (0.55-1.02) H 02/18/22 05:17 Est GFR (MDRD) Af Amer 52 mL/min (>60) L 02/18/22 05:17 Est GFR (MDRD) Non-Af 43 mL/min (>60) L 02/18/22 05:17 BUN/Creatinine Ratio 14.6 RATIO (10-20) 02/18/22 05:17 Glucose 217 mg/dL (74-106) H 02/18/22 05:17 Assessment/Plan: 1. DM 2 - currently on insulin glargine-yfgn 20 units qhs, metformin 1000mg po bid and pioglitazone 30mg daily for glycemic control. A1c 8.5 this admit, BG have ranged from 56-224. Low blood sugars on afternoon of 02/20- was on insulin lispro TID that was stopped on 02/21, insulin glargine dose also decreased on 02/21. Continue to monitor blood sugar and s/sx hypoglycemia as insulin glargine may require further adjustment. Continue to monitor renal function for metformin - Scr 1.3 on 02/18/22 with eGFR of 52 ml/min. If Scr increases with drop in eGFR, may need to adjust or d/c metformin (eGFR <30- consider stopping drug, eGFR 3-45 - consider decreasing dose of 500mg bid). Continue to monitor for edema with pioglitazone. 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 Continue to monitor blood glucose, s/sx of adrenal insufficiency, serum potassium. 3. Hyperlipidemia/cardiovascular prevention in patient with DM2 - on atorvastatin 40mg po qhs. AST/ALT 12/23/21. Last lipid profile in chart from 05/20/2021 (LDL 89, HDL 41, TG 254). Consider annual lipid profile, Monitor AST/ALT if clinically indicated for s/sx of hepatotoxicity, muscle pain. Of note, mifepristone can increase atorvastatin concentrations via CY inhibition- concomitant use not contraindicated. 4. Edema - on furosemide 40mg po daily and spironolactone 50mg po daily. Monitor electrolyes (particulary serum potassium), renal function and s/sx of peripheral edema. 5. CKD stage 3A with eGFR 52ml/min - Scr 1.3, CrCl ~62ml/min based on actual body weight and 31 ml/min based on ideal body weight. Medication doses appropriate for renal fuction at this time. 6. Pain - on acetaminophen 1000mg po q6h prn pain score 1-10. Patient has not required any doses so far this admission. Continue to monitor pain scores, function. 7. GERD - on pantoprazole 40mg po daily. Continue to monitor sx of reflux. 8. H/O Vitamin D deficiency and possibly osteopenia. On cholecalciferol 25 mcg (1000 units) po daily. 25-hydroxy Vitamin D = 28.7 on 12/23/21. Continue to monitor vitamin D level periodically as indicated. 9. Skin maintenance - on nystatin power BID to breasts/groin for tinea corporis and calmoseptine BID to buttocks as barrier protectant. Continue to monitor for skin integrity/ s/sx of infection. 10. DVT Px - no pharmacologic prophylaxis at this time based on overall risk, encourage therapy/ambulation, continue to monitor for sx of VTE. Psychotropic Medications: on mirtazapine 7.5mg po qhs and olanzapine 2.5mg po qhs for history of depression, pt on these meds from home and has been used chronically and stable, GDR evaluated and not recommended per attending physician. Monitor sedation, symptoms of orthostasis, FRASS, sx of depression, sx of EPS, annual lipid profile and blood glucose (olanzapine). Note that mifepristone can increase serum levels of mirtazapine - concomitant use not contraindicated and pt is on lower dose of mirtazapine. Unnecessary Medications: None Bowel Regimen: on bisacodyl 10mg po daily prn and PEG 17gm po daily, Senna-S po bid. Pt has been refusing almost all doses of PEG and Senna-S, consider changing dosing to PRN. Continue to monitor for BM, sx of constipation. Date of Note:: 02/22/22
[2022-02-22 14:31] VITALS: BP 132/61; PULSE 72; RESP 16; TEMP 36.2; O2SAT 96
[2022-02-22 15:51] LABS: Bedside Glucose 263 mg/dL (74-106)
--- NOTE | 2022-02-22 16:58 | CHAPLAIN ---
Type of Pastoral Visit _x__ Initial Visit ___ Follow-up Visit ___ On-call Visit ___ General Patient Visit ___ Spiritual Assessment ___ Family Conference ___ Bereavement ___ Rapid Response ___ Code Blue ___ Other (describe below) Pastoral Care Referral From _x__ Patient ___ Family ___ Nurse ___ Physician ___ Tappet Adjuster ___ Emt Driver ___ Other (describe below) Sacrament/Intervention ___ Active listening ___ Anointing ___ Latter Day ___ Bereavement ___ Communion ___ Nat exploration ___ ___ Life review ___ Prayer ___ Reconciliation ___ Sacrament of Sick _x__ Supportive presence ___ Wedding ___ Other (describe below) Pastoral Comments patient is in chair and dressed; spouse in another chair in room; introduced self and role of support for patient; pt gives one word answers, states that she only wants to go home, and that she does not need other support at this time; spouse states that he has been coming almost daily and is thankful that she is closer to home now as opposed to previous hospital that was a longer drive for him; pt has low affect and does not smile or engage in conversation
[2022-02-22] MEDS: Insulin Lispro 100 UNIT/ML INSULN.PEN SC (17:47)
[2022-02-22] MEDS: Insulin Glargine-YFGN 100 UNIT/ML Pen 20 UNIT SC (21:53)
[2022-02-22] MEDS: Mirtazapine 15 MG Tablet 7.5 MG PO (21:54)
[2022-02-22] MEDS: OLANZapine 2.5 MG Tablet PO (21:55)
[2022-02-22] MEDS: Atorvastatin Calcium 40 MG Tablet PO (21:55)
[2022-02-22 22:16] LABS: Bedside Glucose 214 mg/dL (74-106)
[2022-02-23] MEDS: Pantoprazole Sodium 40 MG Tablet PO (05:49)
[2022-02-23] MEDS: Spironolactone 50 MG Tablet PO (05:49)
[2022-02-23] MEDS: Furosemide 40 MG Tablet PO (05:49)
[2022-02-23] MEDS: Menthol/Lanolin/Calamine/Znox 113 GM Tube 1 APPLIC TOPICAL ×2 (05:49→17:24)
[2022-02-23] MEDS: Cholecalciferol (VIT D3) 25 MCG TABLET (1,000 UNITS) PO (05:49)
[2022-02-23] MEDS: Pioglitazone Hydrochloride 30 MG Tablet PO (05:49)
[2022-02-23 06:31] LABS: Bedside Glucose 126 mg/dL (74-106)
[2022-02-23] MEDS: Insulin Lispro 100 UNIT/ML INSULN.PEN SC ×2 (07:58→11:49)
[2022-02-23] MEDS: metFORMIN HCl 1,000 MG Tablet 1000 MG PO ×2 (07:59→17:25)
--- NOTE | 2022-02-23 10:53 | CASEMGMT ---
Social Work BIMS and PHQ-9 completed for MDS assessment. Pt reports to poor appetite and being tired as normal. Pt stated she does not want any medications to help her appetite. Left communication to Dr. Morel to discontinue Remeron. Pt denies any support and resources. Mary Gaspar, OUTSOLE TACKER SIGNAL TOWER OPERATOR
[2022-02-23 11:06] LABS: Bedside Glucose 228 mg/dL (74-106)
--- NOTE | 2022-02-23 12:01 | NURSING ---
PT HAS MOIST COUGH, ASKED PT WHEN SHE STARTED WITH THE COUGH,PT STATED A FEW DAYS AGO WHEN MY CAME IN WITH A COUGH. LUNGS CLEAR BUT DIMINISHED,I.S. GIVEN AND EDUCATED PT ON ITS USE AND REASONS TO USE. RN AWARE
[2022-02-23 14:11] VITALS: BP 123/65; PULSE 72; RESP 14; TEMP 36.2; O2SAT 98
[2022-02-23 15:36] LABS: Bedside Glucose 83 mg/dL (74-106)
[2022-02-23 17:20] LABS: Bedside Glucose 83 mg/dL (74-106)
[2022-02-23] MEDS: Doxycycline 100 MG CAPSULE PO (18:08)
[2022-02-23 21:45] VITALS: RESP 16; O2SAT 92
[2022-02-23 21:51] LABS: Bedside Glucose 154 mg/dL (74-106)
[2022-02-23] MEDS: OLANZapine 2.5 MG Tablet PO (21:56)
[2022-02-23] MEDS: Atorvastatin Calcium 40 MG Tablet PO (21:56)
[2022-02-23] MEDS: Insulin Glargine-YFGN 100 UNIT/ML Pen 25 UNIT SC (21:57)
[2022-02-24] MEDS: Doxycycline 100 MG CAPSULE PO ×2 (05:38→17:34)
[2022-02-24] MEDS: Spironolactone 50 MG Tablet PO (05:38)
[2022-02-24] MEDS: Pioglitazone Hydrochloride 30 MG Tablet PO (05:38)
[2022-02-24] MEDS: Cholecalciferol (VIT D3) 25 MCG TABLET (1,000 UNITS) PO (05:39)
[2022-02-24] MEDS: Furosemide 40 MG Tablet PO (05:39)
[2022-02-24] MEDS: Pantoprazole Sodium 40 MG Tablet PO (05:39)
[2022-02-24 05:44] VITALS: BP 140/63; PULSE 63
[2022-02-24 06:06] LABS: Bedside Glucose 109 mg/dL (74-106)
[2022-02-24] MEDS: metFORMIN HCl 1,000 MG Tablet 1000 MG PO ×2 (07:58→17:34)
[2022-02-24 11:26] LABS: Bedside Glucose 201 mg/dL (74-106)
--- NOTE | 2022-02-24 13:21 | CASEMGMT ---
Addendum entered by Mary Gaspar 02/25/22 09:30: Pt requested to see this worker. Spoke with pt. Pt states she does not want to go to [place], she wants to go to [facility] outpatient therapy. Contacted [facility] to update and they will transfer the referral to [place]. They will still call patient to schedule appointments. Updated pt. Original Note: Social Work IDT met with patient, and daughter for care plan meeting. Discussed patient's progress in PT/OT and nursing. Pt having limited participation and motivation. Pt adamant about returning home. Family reports her mood and demeanor are normal. Daughter expressed concern about doing less here than what she was doing at home. Pt and agreeable still for pt to DC home. Pt requesting to DC tomorrow, 02/25 and have outpatient PT/OT and [facility]. SW to order and they will contact pt/ to schedule first appointments. They are aware. No DME needs. to transport. Plan: DC home with 02/25, [facility] outpatient PT/OT DIMAS RameyW
[2022-02-24 14:36] VITALS: BP 113/63; PULSE 81; RESP 14; TEMP 36.3; O2SAT 95
[2022-02-24 16:11] LABS: Bedside Glucose 203 mg/dL (74-106)
[2022-02-24] MEDS: Nystatin Powder 15gm Bottle 1 APPLIC TOPICAL (17:35)
[2022-02-24] MEDS: Menthol/Lanolin/Calamine/Znox 113 GM Tube 1 APPLIC TOPICAL (17:35)
--- NOTE | 2022-02-24 20:12 | PCM.DC.SUM ---
Providers Date of Admission: 02/17/22 Primary Care Physician: Dr. Crow Morel MD Reason For Visit: SYNCOPE,DIBILITY Diagnosis Discharge Diagnosis (1) Debility: Status: Acute Code(s): R53.81 - Other malaise (2) Near syncope: Status: Acute Code(s): R55 - Syncope and collapse (3) Encephalopathy: Status: Acute Code(s): G93.40 - Encephalopathy, unspecified (4) Acute kidney injury: Status: Acute Code(s): N17.9 - Acute kidney failure, unspecified (5) Laura syndrome: Status: Acute Code(s): E24.9 - Laura's syndrome, unspecified (6) Hypokalemia: Status: Acute Code(s): E87.6 - Hypokalemia (7) Edema: Status: Acute Code(s): R60.9 - Edema, unspecified (8) Diabetes mellitus: Status: Acute Code(s): E11.9 - Type 2 diabetes mellitus without complications (9) Chronic kidney disease, stage 3a: Status: Chronic Code(s): N18.31 - Chronic kidney disease, stage 3a (10) Depression: Status: Acute Code(s): F32.A - Depression, unspecified (11) Morbid obesity: Status: Acute Code(s): E66.01 - Morbid (severe) obesity due to excess calories (12) Hyperlipidemia: Status: Acute Code(s): E78.5 - Hyperlipidemia, unspecified (13) Gastroesophageal reflux disease: Status: Acute Code(s): K21.9 - Gastro-esophageal reflux disease without esophagitis (14) Obstructive sleep apnea: Status: Acute Code(s): G47.33 - Obstructive sleep apnea (adult) (pediatric) Medications at Discharge Home Medications atorvastatin 40 mg PO QHS 01/06/20 cholecalciferol (vitamin D3) 25 mcg PO DAILY 01/06/20 metformin 1,000 mg PO BIDCM 01/06/20 olanzapine 5 mg PO QHS 01/06/20 pioglitazone 30 mg PO DAILY 01/06/20 pantoprazole 40 mg PO DAILY 09/10/20 Korlym 300 mg PO DAILY 02/17/22 Tresiba FlexTouch U-200 28 unit SUBCUT QHS 02/17/22 furosemide 40 mg PO DAILY 02/17/22 spironolactone 50 mg PO DAILY 02/17/22 Hospital Course Operations None Procedures None Summary of Care Provided Minutes Spent on Discharge: 35 Hospital Course: 66 year old female with below past medical history hospitalized for near syncope, acute encephalopathy, acute kidney injury, stroke ruled out, admitted to TCU with debility, here for rehabilitation, strengthening, prior to discharge home with . Discharge home with 02/25/2022, [facility] outpatient PT/OT. Physical Exam Const alert General Appearance: cooperative HEENT normocephalic Eyes PERRL and EOMs intact bilaterally Neck supple, no JVD and no carotid bruits Resp normal respiratory effort, normal air movement and clear to auscultation bilaterally Cardio regular rate and regular rhythm GI normal to inspection, nondistended, normoactive bowel sounds, non-tender and non-distended Extremity normal capillary refill General Extremity: Negative for edema Skin no rashes or lesions noted General Skin Exam: no breakdown Psych affect normal Appearance: appropriate Weight / BMI Weight Weight: 94.892 kg Body Mass Index (BMI) 39.6 ABG / Lab / Microbiology Data Result Diagrams: 02/18/22 05:17 02/18/22 05:17 Laboratory: Laboratory Results - last 24 hr 02/23/22 21:40: POC Glucose 154 H 02/24/22 05:59: POC Glucose 109 H 02/24/22 11:15: POC Glucose 201 H 02/24/22 16:01: POC Glucose 203 H Microbiology: Microbiology 02/23/22 Unknown Nasal Secretion SARS-CoV-2 Antigen (Rapid) - Final 02/17/22 15:15 Nasal Secretion SARS-CoV-2 Antigen (Rapid) - Final D/C Instructions Discharge Diet: No restrictions Discharge Activity: Return to Normal Activity, May Shower and Use Walker Weight Bearing Status: Weight bearing as tolerated Call your doctor if you observe: Fever of 101 or Higher, Inability to urinate, Inability to have a bowel movement, Shortness of breath, Dizziness, Fainting spells, Swelling in the ankles, Chest pain and Uncontrolled pain Additional Instructions: Discharge home with 02/25/2022, [facility] outpatient PT/OT. Please Follow Up With: Crow Morel Chi, MD When: within 1 week. Meaningful Use Info Meaningful Use Diagnoses (Choose all that apply): None applicable Discharge Plan Admission Admit Date/Time: 02/17/22 14:39 Primary Reason for Your Visit: Debility. Attending Provider: Crow Morel Chi Primary Care Provider: Crow Morel Chi Instructions Additional Instructions / Restrictions: Discharge home with 02/25/2022, [facility] outpatient PT/OT. Discharge Orders/Prescriptions Prescriptions: Continued atorvastatin 40 MG tablet 40 mg PO QHS RF: 0 olanzapine 2.5 MG tablet 5 mg PO QHS RF: 0 metformin 1,000 MG tablet 1,000 mg PO BIDCM RF: 0 pioglitazone 30 MG tablet 30 mg PO DAILY RF: 0 cholecalciferol (vitamin D3) 1,000 UNIT tablet 25 mcg PO DAILY RF: 0 pantoprazole 40 MG tablet,delayed release (DR/EC) 40 mg PO DAILY RF: 0 Tresiba FlexTouch U-200 200 unit/mL (3 mL) Insulin Pen 28 unit SUBCUT QHS RF: 0 furosemide 40 mg Tablet 40 mg PO DAILY RF: 0 spironolactone 50 mg Tablet 50 mg PO DAILY RF: 0 Korlym 300 mg Tablet 300 mg PO DAILY RF: 0 Discontinued insulin detemir U-100 100 UNITS/ML insulin pen 40 unit SC BID RF: 0 mirtazapine 7.5 MG tablet 7.5 mg PO QHS RF: 0 iron 50 mg iron Tablet 1 tab PO DAILY RF: 0 Referrals / Follow Up: Crow Morel Chi, MD [Primary Care Provider] - 02/26/22 10:00 am Disposition Disposition (needs filled in before D/C Order can be placed): Home, Self Care
[2022-02-24] MEDS: Insulin Glargine-YFGN 100 UNIT/ML Pen 25 UNIT SC (22:03)
[2022-02-24] MEDS: Atorvastatin Calcium 40 MG Tablet PO (22:04)
[2022-02-24] MEDS: OLANZapine 2.5 MG Tablet PO (22:05)
[2022-02-24 22:25] LABS: Bedside Glucose 192 mg/dL (74-106)
[2022-02-25] MEDS: Spironolactone 50 MG Tablet PO (05:15)
[2022-02-25] MEDS: Pioglitazone Hydrochloride 30 MG Tablet PO (05:15)
[2022-02-25] MEDS: Furosemide 40 MG Tablet PO (05:15)
[2022-02-25] MEDS: Pantoprazole Sodium 40 MG Tablet PO (05:15)
[2022-02-25] MEDS: Doxycycline 100 MG CAPSULE PO (05:15)
[2022-02-25] MEDS: Cholecalciferol (VIT D3) 25 MCG TABLET (1,000 UNITS) PO (05:15)
[2022-02-25] MEDS: Menthol/Lanolin/Calamine/Znox 113 GM Tube 1 APPLIC TOPICAL (05:16)
[2022-02-25 05:58] LABS: Absolute Neutrophil Count 2.7 X10^3/uL (2.0-7.7); Basophil# 0.02 X10^3/uL; Basophil% 0.4 % (0-1); Eosinophil# 0.14 X10^3/uL; Eosinophils% 2.7 % (0-5); Hematocrit 32.4 % (37-47); Hemoglobin 10.9 g/dL (12.0-15.0); Lymphocyte % 36.7 % (19-41); Mean Corp Hgb Conc 33.6 g/dL (32-36); Mean Corpuscular Hgb 29.3 pg (27.0-32.0); Mean Corpuscular Volume 87.1 fL (81-99); Mean Platelet Vol. 10.5 fl (6.2-12.0); Monocyte# 0.38 X10^3/uL; Monocyte% 7.3 % (0-10); NRBC Flagged by Analyzer 0 % (0-5); Neutrophil # 2.72 X10^3/uL (2.7-7.7); Neutrophil % 52.5 % (47-70); Platelet Count 241 K/mm3 (150-450); RBC Distribution Width CV 13.2 % (11.6-14.6); RBC Distribution Width SD 41.7 fl (35.1-43.9); Red Blood Count 3.72 M/mm3 (4.2-5.4); White Blood Count 5.2 K/mm3 (4.4-11.0)
[2022-02-25 06:21] LABS: Bedside Glucose 111 mg/dL (74-106)
[2022-02-25 06:32] LABS: Anion Gap 3 (5-15); BUN 29 mg/dL (7-18); BUN/Creat Ratio 15.4 RATIO (10-20); Calcium,Total 8.6 mg/dL (8.5-10.1); Chloride 98 mmol/L (98-107); Creatinine, Serum 1.88 mg/dL (0.55-1.02); EST Glomerular Filtration Rate 28 mL/min (>60); Est Glom Filt Rate - Afr Amer 34 mL/min (>60); Estimated Creatinine Clearance 21.61 ml/min; Glucose 109 mg/dL (74-106); Potassium 4.6 mmol/L (3.5-5.1); Sodium Level 137 mmol/L (136-145)
[2022-02-25] MEDS: metFORMIN HCl 1,000 MG Tablet 1000 MG PO (07:49)
[2022-02-25 10:51] LABS: Bedside Glucose 130 mg/dL (74-106)
[2022-02-25 11:51] VITALS: BP 104/55; PULSE 81; RESP 14; TEMP 36.6; O2SAT 93
--- NOTE | 2022-03-02 13:07 | MDS.RN ---
Information for the mds was obtained from review of the clinical record, interview of resident, staff, and direct observation of resident's care.
== END 2022-02-25 11:45 | disposition home or self-care (01) | DRG 312 ==
PROVIDERS: Admitting Provider Family Medicine Geriatric Medicine; PCP Family Medicine Geriatric Medicine; Visit Provider Family Medicine Geriatric Medicine
DX: R55 Syncope and collapse (principal); E24.9 Cushing's syndrome, unspecified; F33.9 Major depressive disorder, recurrent, unspecified; D63.1 Anemia in chronic kidney disease; E11.22 Type 2 diabetes mellitus with diabetic chronic kidney disease; B35.4 Tinea corporis; E55.9 Vitamin D deficiency, unspecified; E66.01 Morbid (severe) obesity due to excess calories; Z79.4 Long term (current) use of insulin; N18.31 Chronic kidney disease, stage 3a; E78.5 Hyperlipidemia, unspecified; K21.9 Gastro-esophageal reflux disease without esophagitis; G47.33 Obstructive sleep apnea (adult) (pediatric); Z20.822 Contact with and (suspected) exposure to COVID-19; Z79.899 Other long term (current) drug therapy; Z68.39 Body mass index [BMI] 39.0-39.9, adult
CPT/HCPCS: 36415; 80048; 82962; 83036; 85025; 87426; 97110; 97116; 97162; 97166; 97530; 97535; 97802

== ENCOUNTER 2022-03-01 11:53 | Outpatient (CLI) | payer MEDICARE, BC, SELFPAY ==
[2022-03-01 13:03] LABS: Anion Gap 5 (5-15); BUN 35 mg/dL (7-18); BUN/Creat Ratio 17.9 RATIO (10-20); Calcium,Total 8.8 mg/dL (8.5-10.1); Chloride 96 mmol/L (98-107); Creatinine, Serum 1.95 mg/dL (0.55-1.02); EST Glomerular Filtration Rate 27 mL/min (>60); Est Glom Filt Rate - Afr Amer 33 mL/min (>60); Glucose 238 mg/dL (74-106); Potassium 4.6 mmol/L (3.5-5.1); Sodium Level 136 mmol/L (136-145)
== END 2022-03-01 23:59 | disposition home or self-care (01) ==
LOC: POLAB3 11:55
PROVIDERS: PCP Family Medicine Geriatric Medicine; Visit Provider Family Medicine Geriatric Medicine
DX: E24.9 Cushing's syndrome, unspecified (principal)
CPT/HCPCS: 36415; 80048

== ENCOUNTER 2022-03-12 15:27 | Outpatient (CLI) | payer MEDICARE, BC, SELFPAY ==
[2022-03-12 16:33] LABS: Anion Gap 8 (5-15); BUN 32 mg/dL (7-18); BUN/Creat Ratio 18.6 RATIO (10-20); Calcium,Total 9.2 mg/dL (8.5-10.1); Chloride 97 mmol/L (98-107); Creatinine, Serum 1.72 mg/dL (0.55-1.02); EST Glomerular Filtration Rate 31 mL/min (>60); Est Glom Filt Rate - Afr Amer 38 mL/min (>60); Glucose 293 mg/dL (74-106); Potassium 4.3 mmol/L (3.5-5.1); Sodium Level 134 mmol/L (136-145)
== END 2022-03-12 23:59 | disposition home or self-care (01) ==
LOC: LAB 15:30
PROVIDERS: PCP Family Medicine Geriatric Medicine; Visit Provider Family Medicine Geriatric Medicine
DX: R94.4 Abnormal results of kidney function studies (principal)
CPT/HCPCS: 36415; 80048

== ENCOUNTER → 2022-03-17 | Outpatient (CLI) | payer MEDICARE, BC, SELFPAY ==
--- NOTE | 2022-03-17 16:12 | MRI_ITS ---
STUDY: MRI BRAIN WITHOUT CONTRAST REASON FOR EXAM: Female, 66 years old. TIMUR''S SYNDROME TECHNIQUE: Standardized multiplanar fat and water weighted pulse sequences were obtained. COMPARISON: Cranial CT of 01/08/2022.. FINDINGS: Normal size of the ventricles and extra-axial spaces for the patient''s age. Normal white matter tracts of the supratentorial brain. No restricted diffusion. No intra or extra-axial mass. No acute intracranial hemorrhage. Normal bilateral basal ganglia. Normal thalami. There is no extra-axial fluid accumulation. Normal flow voids within the major intracranial circulation suggesting patency by spin echo criteria. Normal sella turcica, pituitary gland, infundibular stalk, optic chiasm and hypothalamus. No sellar or suprasellar mass is identified on this routine cranial MR. Normal midbrain, shin and medulla. Normal cerebellum. Normal basal cisterns. The cerebellar tonsils are normally positioned. Seventh/8th cranial nerve root complexes are symmetric. No demonstrated orbital abnormality, within the constraints of a routine brain study. Normal visualized paranasal sinuses. Normal calvarium and skull base. MRI/Brain without Contrast IMPRESSION: Negative nonenhanced cranial MRI. No acute infarction, intracranial hemorrhage or pituitary mass identified. Electronically Signed: Santana Montalvo MD at 5:08 EDT ,
== END | disposition home or self-care (01) ==
LOC: MRI 16:10
PROVIDERS: PCP Family Medicine Geriatric Medicine; Referring Provider Family Medicine Geriatric Medicine; Visit Provider Family Medicine Geriatric Medicine
DX: E24.9 Cushing's syndrome, unspecified (principal)
CPT/HCPCS: 70551

== ENCOUNTER → 2022-03-29 | Outpatient (CLI) | payer MEDICARE, BC, SELFPAY ==
[2022-03-29 12:21] LABS: Absolute Lymphocyte Count 1.47 X10^3/uL (0.83-4.51); Absolute Neutrophil Count 4.4 X10^3/uL (2.0-7.7); Basophil# 0.03 X10^3/uL; Basophil% 0.5 % (0-1); Eosinophil# 0.16 X10^3/uL; Eosinophils% 2.5 % (0-5); Hemoglobin 10.9 g/dL (12.0-15.0); Lymphocyte # 1.47 X10^3/ul (0.83-4.51); Lymphocyte % 22.6 % (19-41); Mean Corp Hgb Conc 32.1 g/dL (32-36); Mean Corpuscular Hgb 28.1 pg (27.0-32.0); Mean Corpuscular Volume 87.6 fL (81-99); Mean Platelet Vol. 10.9 fl (6.2-12.0); Monocyte# 0.43 X10^3/uL; Monocyte% 6.6 % (0-10); NRBC Flagged by Analyzer 0 % (0-5); Neutrophil % 67.5 % (47-70); Platelet Count 268 K/mm3 (150-450); RBC Distribution Width CV 14.5 % (11.6-14.6); RBC Distribution Width SD 45.9 fl (35.1-43.9); Red Blood Count 3.88 M/mm3 (4.2-5.4); White Blood Count 6.5 K/mm3 (4.4-11.0)
[2022-03-29 12:57] LABS: ALB/GLOB Ratio 0.9 RATIO (0.9-2.4); AST(SGOT) 21 U/L (15-37); Alanine Aminotransfer ALT/SGPT 22 U/L (13-56); Albumin, Serum 3.3 g/dL (3.2-5.0); Alkaline Phosphatase 82 U/L (45-117); Anion Gap 8 (5-15); BUN 27 mg/dL (7-18); BUN/Creat Ratio 11.7 RATIO (10-20); Calcium,Total 9.6 mg/dL (8.5-10.1); Chloride 98 mmol/L (98-107); Creatinine, Serum 2.31 mg/dL (0.55-1.02); EST Glomerular Filtration Rate 22 mL/min (>60); Est Glom Filt Rate - Afr Amer 27 mL/min (>60); Globulin 3.8 g/dL (2.2-4.2); Glucose 114 mg/dL (74-106); Potassium 4.1 mmol/L (3.5-5.1); Protein, Total 7.1 g/dL (6.4-8.2); Sodium Level 138 mmol/L (136-145); Thyroid Stim Hormone (TSH) 5.06 uIU/mL (0.358-3.74)
== END | disposition home or self-care (01) ==
LOC: POLAB3 09:00
PROVIDERS: PCP Family Medicine Geriatric Medicine; Visit Provider Family Medicine Geriatric Medicine
DX: E11.65 Type 2 diabetes mellitus with hyperglycemia (principal); E55.9 Vitamin D deficiency, unspecified; R53.83 Other fatigue
CPT/HCPCS: 36415; 80053; 82306; 84443; 85025

== ENCOUNTER 2022-04-02 14:13 | Inpatient (IN) | payer MEDICARE, BC, SELFPAY ==
[2022-04-02 14:14] VITALS: BP 124/65; PULSE 87; RESP 16; TEMP 36.3; O2SAT 95; BMI 39.4
[2022-04-02 14:15] VITALS: BP 124/65; PULSE 87; RESP 16; TEMP 36.3; O2SAT 95
[2022-04-02] MEDS: 0.9% Normal Saline 1,000 ML 150 ML IV ×3 (15:11→22:39)
--- NOTE | 2022-04-02 15:24 | US_ITS ---
EXAM: US RETROPERITONEAL LIMITED, RENAL CLINICAL INDICATION: BALDO TECHNIQUE: Limited grayscale and color Doppler sonographic evaluation of the retroperitoneum was performed. This report was created using drumbi report [employer] technology. COMPARISON: None. FINDINGS: RIGHT KIDNEY: Unremarkable. No hydronephrosis. No shadowing calculus. No perinephric collection is demonstrated. The right kidney measures 11.3 cm in length. LEFT KIDNEY: Unremarkable. No hydronephrosis. No shadowing calculus. No perinephric collection is demonstrated. The left kidney measures 11.0 cm in length. BLADDER: Bladder is collapsed around a Nelson catheter. US/Kidney and Bladder IMPRESSION: No acute findings in the retroperitoneum. Electronically Signed: Kapil Sotomayor MD at 20:09 EDT ,
--- NOTE | 2022-04-02 15:25 | HP.PCM.HOS_ITS ---
HPI - General General Date of Admission: 04/02/22 Date of Service: 04/02/22 Chief Complaint: Nausea and vomiting, abnormal lab HPI Reid DORMAN, is a 66 F with past medical history signal for diabetes mellitus type 2, Laura syndrome chronic kidney disease stage IIIa who presented with nausea and vomiting. Patient apparently had lab work 4 days prior to her admission. Her kidney function had gone up from baseline of 1.72- 2.31. She did experience low blood glucose a day prior to coming in this was associated with nausea and vomiting according to the patient. She called her primary care physician lab work taking did reveal significant worsening of her kidney function with creatinine up to 7.72 she was therefore sent to the ED. An assessment of acute kidney injury made admitted to regular nursing floor for fur ther management [facility] Medical History (Updated 04/02/22 @ 16:[address] Domingo Ann MD) BALDO (acute kidney injury) Anemia Anemia of chronic renal failure, stage 3 (moderate) Back problem Bone fracture Cataracts, bilateral Diabetes type 2, controlled Major depressive disorder, recurrent episode Obstructive sleep apnea on CPAP Pancreatitis Vision problems Wound of skin Home Medications atorvastatin 40 mg PO QHS 01/06/20 [History Last Taken 03/31/22] metformin 1,000 mg PO BIDCM 01/06/20 [History Last Taken 04/01/22] pioglitazone 30 mg PO DAILY 01/06/20 [History Last Taken 04/01/22] pantoprazole 40 mg PO DAILY 09/10/20 [History Last Taken 04/01/22] Korlym 300 mg PO DAILY 02/17/22 [History Last Taken 04/01/22] Tresiba FlexTouch U-200 15 unit SUBCUT QHS 02/17/22 [History Last Taken 03/31/22] calcium carbonate 600 mg-vitamin D3 10 mcg (400 unit) tablet 2 tab PO DAILY tab 03/08/22 [History Last Taken 04/01/22] levothyroxine 25 mcg PO DAILY 04/02/22 [History Last Taken Unknown] Allergy/AdvReac Type Severity Reaction Status Date / Time adhesive tape AdvReac Intermediate Rash Verified 04/02/22 14:15 codeine AdvReac Intermediate Dizziness Verified 04/02/22 14:15 Family History Mother Diabetes Father Heart disease Hypertension Surgical History Hx of appendectomy Hx of cataract surgery Hx of cholecystectomy S/P partial hysterectomy Status post ORIF of fracture of ankle Social History household members: spouse Smoking Status: Never smoker second hand exposure: No alcohol intake: never substance use type: does not use salas/congregation: [employer] seatbelt use: always do you feel safe at home: Yes ROS ROS Narrative GENERAL: denies fever, chills, night sweats, weight loss, anorexia HEENT: denies headache, sinus congestion, or drainage, dysphagia RESPIRATORY: denies cough, sputum production, CARDIAC: denies chest pain, palpitations, orthopnea, PND GASTROINTESTINAL: nausea, vomiting, melena, GENITOURINARY: denies dysuria, urgency, frequency, heamaturia EXTREMITY: denies swelling MUSCULOSKELETAL: Back pain NEUROLOGIC: denies focal numbness, weakness, tingling HEMATOLOGIC: denies easy bruising and/or hemorrhage INTEGUMENT: denies rashes PSYCHIATRIC: No anxiety Vital Signs Vital Signs Vital Signs: 04/02/22 14:14 04/02/22 14:15 Temperature 97.4 F L 97.4 F L Temperature Source Temporal Temporal Pulse Rate 87 87 Respiratory Rate 16 16 Blood Pressure 124/65 H 124/65 H Blood Pressure Mean 84 84 Pulse Ox 95 95 Oxygen Delivery Method Room Air Room Air Weight Weight: 94.801 kg Body Mass Index (BMI) 39.4 Physical Exam Narrative GENERAL: cooperative HEENT: Atraumatic; EYES; Anicteric, Normal Conjunctiva NECK; supple, normal thyroid, RESPIRATORY: Diminished to auscultation CARDIOVASCULAR: Regular S1 S2, GI: soft, normoactive bowel sounds, : No Renal angle tenderness; EXTREMITIES: No edema, no clubbing, MUSCULOSKELETAL: no muscle wasting NEURO: Awake; no lateralizing signs. SKIN: No Rash PSYCH; Flat affect Assessment & Plan Assessment/Plan (1) BALDO (acute kidney injury): (2) Laura syndrome: (3) Diabetes mellitus: (4) Chronic kidney disease, stage 3a: (5) Hypoglycemia: PLAN: Patient is a 66-year-old female sent to the emergency department by her primary care physician with abnormal labs 1. Acute kidney injury ? Superimposed on chronic kidney disease stage IIIa. Patient has been admitted to regular nursing floor started on IV fluids. As part of a management ordered serial BMPs q. morning, urine sodium, urine creatinine as well as ultrasound of the kidneys consult was placed to nephrology Dr. Layne 2. Diabetes mellitus type 2 ? With complications including hypoglycemic episode. Held patient long-acting insulin she was placed on Accu-Cheks before meals and at bedtime with sliding scale coverage. 3. Chronic kidney disease stage IIIa As a result of diabetic nephropathy. Patient presented with BALDO management as discussed above 4. 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 Dyslipidemia -Patient is on statin therapy, continued at home dose 7. Class II obesity with BMI of 39.8 ? Weight loss advised 8. DVT prophylaxis ? SC heparin Charges/Coding Visit Charges Inpatient E&M: 36137 Init Hosp L3
[2022-04-02 15:38] VITALS: BP 128/60; PULSE 88; RESP 18; TEMP 36.3; O2SAT 96
--- NOTE | 2022-04-02 15:51 | EDS_ITS ---
HPI History of Present Illness Chief Complaint: Abn Labs Narrative Narrative: 66-year-old female presenting with acute kidney injury. She was sent in by Dr. Morel. Her creatinine today is elevated at 7.72. Her creatinine 4 days ago was 2.32. Patient is on Oralone for Laura's disease. She had her Lasix discontinued in the hopes that this would improve her kidney function. Patient reports that she only drinks about 10 ounces of water a day. She is making urine and denies urinary symptoms. She states her urine is clear. Last night she admits to vomiting but she does not have any nausea now. [facility] Medical History Anemia Anemia of chronic renal failure, stage 3 (moderate) Back problem Bone fracture Cataracts, bilateral Diabetes type 2, controlled Major depressive disorder, recurrent episode Obstructive sleep apnea on CPAP Pancreatitis Vision problems Wound of skin Home Medications atorvastatin 40 mg PO QHS 01/06/20 [History Last Taken 03/31/22] metformin 1,000 mg PO BIDCM 01/06/20 [History Last Taken 04/01/22] pioglitazone 30 mg PO DAILY 01/06/20 [History Last Taken 04/01/22] pantoprazole 40 mg PO DAILY 09/10/20 [History Last Taken 04/01/22] Korlym 300 mg PO DAILY 02/17/22 [History Last Taken 04/01/22] Tresiba FlexTouch U-200 15 unit SUBCUT QHS 02/17/22 [History Last Taken 0 03/31/22] calcium carbonate 600 mg-vitamin D3 10 mcg (400 unit) tablet 2 tab PO DAILY tab 03/08/22 [History Last Taken 04/01/22] levothyroxine 25 mcg PO DAILY 04/02/22 [History Last Taken Unknown] Allergy/AdvReac Type Severity Reaction Status Date / Time adhesive tape AdvReac Intermediate Rash Verified 04/02/22 14:15 codeine AdvReac Intermediate Dizziness Verified 04/02/22 14:15 Family History Mother Diabetes Father Heart disease Hypertension Surgical History Hx of appendectomy Hx of cataract surgery Hx of cholecystectomy S/P partial hysterectomy Status post ORIF of fracture of ankle Social History household members: spouse Smoking Status: Never smoker second hand exposure: No alcohol intake: never substance use type: does not use salas/sikhism: Roman Catholic seatbelt use: always do you feel safe at home: Yes ROS ROS ED Constitutional Constitutional ED: Denies chills or fever(s) Eyes Eyes: Denies blurry vision or diplopia ENT ENT ED: Denies rhinorrhea or sore throat Cardiovascular Cardiovascular: Denies chest pain or palpitations Respiratory/Chest Respiratory/Chest: Denies cough or dyspnea Gastrointestinal Gastrointestinal: Reports nausea and vomiting; Denies constipation or diarrhea Genitourinary Genitourinary ED: Denies dysuria or hematuria Musculoskeletal Musculoskeletal: Denies arthralgias or myalgias Integumentary Denies rash Neurologic Neurologic: Denies headache(s) or weakness EXAM Physical Exam Const Vital Signs: 04/02/22 14:14 04/02/22 14:15 04/02/22 15:38 Temperature 97.4 F L 97.4 F L 97.4 F L Temperature Source Temporal Temporal Temporal Pulse Rate 87 87 88 Respiratory Rate 16 16 18 Blood Pressure 124/65 H 124/65 H 128/60 H Blood Pressure Mean 84 84 82 Pulse Ox 95 95 96 Oxygen Delivery Method Room Air Room Air Room Air Positive well nourished General Appearance ED: NAD HEENT Reports dry mucous membranes Negative for trauma Mouth ED: Yes dry mucous membranes Mouth: dry mucous membranes Eyes PERRL MDM MDM MDM Narrative Medical decision making narrative: Patient presenting with acute kidney injury. She is given IV fluids at 150/h. Vital signs are stable she is afebrile. Electrolytes normal. She reports decreased p.o. intake. She was taken off her Lasix recently and started on corlone. Discussed with Dr. Layne who recommended a urine sodium/creatinine. She recommended a Nelson catheter for SYLVAIN's and also to make sure she is not obstructed. Patient discussed with the hospitalist for admission. Impression: 1. Acute kidney injury Discharge Plan Triage Chief Complaint: Abn Labs ED Provider: Gume Sosa Dx/Rx/DC Orders Prescriptions: No Action calcium carbonate-vitamin D3 600 mg-10 mcg (400 unit) tablet 2 tab PO DAILY RF: 0 atorvastatin 40 MG tablet 40 mg PO QHS RF: 0 metformin 1,000 MG tablet 1,000 mg PO BIDCM RF: 0 pioglitazone 30 MG tablet 30 mg PO DAILY RF: 0 pantoprazole 40 MG tablet,delayed release (DR/EC) 40 mg PO DAILY RF: 0 Tresiba FlexTouch U-200 200 unit/mL (3 mL) Insulin Pen 15 unit SUBCUT QHS RF: 0 Korlym 300 mg Tablet 300 mg PO DAILY RF: 0 levothyroxine 25 mcg tablet 25 mcg PO DAILY RF: 0 Primary Care Provider: Crow Morel Chi
[2022-04-02 16:00] VITALS: BMI 39.7
[2022-04-02 16:09] VITALS: BP 126/66; PULSE 86; RESP 18; TEMP 36.5; O2SAT 95
[2022-04-02 16:26] LABS: Bedside Glucose 170 mg/dL (74-106)
[2022-04-02] MEDS: Insulin Lispro 100 UNIT/ML INSULN.PEN SC ×2 (17:04→22:29)
[2022-04-02 17:47] LABS: Urine Sodium 61 mmol/L (Not Establ.)
[2022-04-02 20:30] VITALS: BP 128/64; PULSE 92; RESP 16; TEMP 36.8; O2SAT 96
[2022-04-02] MEDS: Heparin Injection (Vial) 5,000 UNIT/ML VIAL 5000 UNIT SC (22:28)
[2022-04-02] MEDS: Atorvastatin Calcium 40 MG Tablet PO (22:29)
[2022-04-02 23:30] LABS: Bedside Glucose 165 mg/dL (74-106)
[2022-04-03 02:50] VITALS: BP 118/55; PULSE 88; RESP 16; TEMP 36.6; O2SAT 95
[2022-04-03] MEDS: Levothyroxine 25 MCG TABLET PO (05:50)
[2022-04-03 06:43] LABS: Absolute Neutrophil Count 3.8 X10^3/uL (2.0-7.7); Basophil# 0.02 X10^3/uL; Basophil% 0.4 % (0-1); Eosinophils% 1.8 % (0-5); Hematocrit 29.1 % (37-47); Hemoglobin 9.5 g/dL (12.0-15.0); Lymphocyte % 19.6 % (19-41); Mean Corp Hgb Conc 32.6 g/dL (32-36); Mean Corpuscular Hgb 28.3 pg (27.0-32.0); Mean Corpuscular Volume 86.6 fL (81-99); Mean Platelet Vol. 10.9 fl (6.2-12.0); Monocyte# 0.56 X10^3/uL; NRBC Flagged by Analyzer 0 % (0-5); Neutrophil % 67.8 % (47-70); Platelet Count 220 K/mm3 (150-450); RBC Distribution Width CV 14.6 % (11.6-14.6); RBC Distribution Width SD 46.3 fl (35.1-43.9); Red Blood Count 3.36 M/mm3 (4.2-5.4); White Blood Count 5.6 K/mm3 (4.4-11.0)
[2022-04-03 06:52] LABS: International Normalized Ratio 1.1; Prothrombin Time (Protime)PT. 13.5 SECONDS (11.7-14.9)
[2022-04-03] MEDS: 0.9% Normal Saline 1,000 ML 150 ML IV ×3 (06:52→23:01)
[2022-04-03 07:00] LABS: Bedside Glucose 71 mg/dL (74-106)
[2022-04-03 07:08] VITALS: O2SAT 94
--- NOTE | 2022-04-03 07:35 | PCM.PN.HOSP ---
Subjective Subjective Patient seen her kidney function actually did worsen with creatinine going up from 7.72-8.01. BUN remains unchanged. We will continue with current IV fluid if patient does not respond patient may need to undergo kidney biopsy to evaluate the underlying etiology. This decision will be deferred to nephrology Objective Data Objective Data Vital Signs: Vital Signs Temp Pulse Resp BP Pulse Ox 98 F 88 16 118/55 L 94 04/03/22 02:50 04/03/22 02:50 04/03/22 02:50 04/03/22 02:50 04/03/22 07:08 Oxygen Delivery Method Room Air Weight: 95.5 kg Body Mass Index (BMI) 39.7 Intake & Output: Intake and Output for Last 24 Hours 04/01/22 04/02/22 04/03/22 23:59 23:59 23:59 Intake Total 1120 / 1120 1000 / 1000 Output Total 30 / 80 450 / 450 Balance 1090 / 1040 550 / 550 Lab / Micro Data Result Diagrams: 04/03/22 06:12 04/03/22 06:12 Labs: Laboratory Results - last 24 hr 04/02/22 16:15: POC Glucose 170 H 04/02/22 17:00: Ur Random Sodium 61, Urine Creatinine 65.60 04/02/22 22:24: POC Glucose 165 H 04/03/22 06:12: WBC 5.6, RBC 3.36 L, Hgb 9.5 L, Hct 29.1 L, MCV 86.6, MCH 28.3, MCHC 32.6, RDW Std Deviation 46.3 H, RDW Coeff of Joe 14.6, Plt Count 220, MPV 10.9, Immature Gran % (Auto) 0.400, Neut % (Auto) 67.8, Lymph % (Auto) 19.6, [place] % (Auto) 10.0, Eos % (Auto) 1.8, Baso % (Auto) 0.4, Absolute Neuts (auto) 3.8, Absolute Lymphs (auto) 1.10, Nucleated RBC % 0 04/03/22 06:12: PT 13.5, INR 1.1 04/03/22 06:50: POC Glucose 71 L Radiography Diagnostic Testing: Radiology Impression Renal Ultrasound 04/02/22 15:24 IMPRESSION: No acute findings in the retroperitoneum. Electronically Signed: Kapil Sotomayor MD at 20:09 EDT , Physical Exam Narrative GENERAL: cooperative HEENT: Atraumatic; EYES; Anicteric, Normal Conjunctiva NECK; supple, normal thyroid, RESPIRATORY: Diminished to auscultation CARDIOVASCULAR: Regular S1 S2, GI: soft, normoactive bowel sounds, : No Renal angle tenderness; EXTREMITIES: No edema, no clubbing, MUSCULOSKELETAL: no muscle wasting NEURO: Awake; no lateralizing signs. SKIN: No Rash PSYCH; Flat affect Assessment & Plan Assessment/Plan (1) BALDO (acute kidney injury): (2) Laura syndrome: (3) Diabetes mellitus: (4) Chronic kidney disease, stage 3a: (5) Hypoglycemia: PLAN: Patient is a 66-year-old female sent to the emergency department by her primary care physician with abnormal labs 1. Acute kidney injury ? Superimposed on chronic kidney disease stage IIIa. Patient has been admitted to regular nursing floor started on IV fluids. As part of a management ordered serial BMPs q. morning, urine sodium, urine creatinine as well as ultrasound of the kidneys consult was placed to nephrology Dr. Layne 04/03/2022; Patient seen her kidney function actually did worsen with creatinine going up from 7.72-8.01. BUN remains unchanged. We will continue with current IV fluid if patient does not respond patient may need to undergo kidney biopsy to evaluate the underlying etiology. This decision will be deferred to nephrology 2. Diabetes mellitus type 2 ? With complications including hypoglycemic episode. Held patient long-acting insulin she was placed on Accu-Cheks before meals and at bedtime with sliding scale coverage. 3. Chronic kidney disease stage IIIa As a result of diabetic nephropathy. Patient presented with BALDO management as discussed above 4. 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 Dyslipidemia -Patient is on statin therapy, continued at home dose 7. Class II obesity with BMI of 39.8 ? Weight loss advised 8. DVT prophylaxis ? SC heparin Charges/Coding Visit Charges Inpatient E&M: 10100 Subs Hosp L3
[2022-04-03 07:43] LABS: Anion Gap 9 (5-15); BUN 52 mg/dL (7-18); BUN/Creat Ratio 6.5 RATIO (10-20); Calcium,Total 8.2 mg/dL (8.5-10.1); Chloride 99 mmol/L (98-107); Creatinine, Serum 8.01 mg/dL (0.55-1.02); EST Glomerular Filtration Rate 5 mL/min (>60); Est Glom Filt Rate - Afr Amer 6 mL/min (>60); Estimated Creatinine Clearance 5.07 ml/min; Glucose 71 mg/dL (74-106); Magnesium 1.7 mg/dL (1.6-2.6); Sodium Level 137 mmol/L (136-145); Thyroid Stim Hormone (TSH) 4.76 uIU/mL (0.358-3.74)
[2022-04-03 07:47] VITALS: BP 111/54; PULSE 86; RESP 16; TEMP 36.6; O2SAT 93
[2022-04-03] MEDS: Calcium Carb/Vitamin D 1 TABLET Tablet 2 TABLET PO (07:56)
[2022-04-03] MEDS: Heparin Injection (Vial) 5,000 UNIT/ML VIAL 5000 UNIT SC ×2 (09:31→21:38)
[2022-04-03] MEDS: Pantoprazole Sodium 40 MG Tablet PO (09:31)
--- NOTE | 2022-04-03 10:20 | PCM.CONS.R ---
Assessment & Plan Assessment/Plan (1) BALDO (acute kidney injury): PLAN: Baseline creatinine 1.2 increased to 8 today. Currently nonoliguric. FENA >1 suggestive of intrinsic renal failure. May be BALDO from metformin. Continue with IV fluids. Currently euvolemic. No urgency to initiate dialysis today. Electrolytes stable. Discussed with patient that she may need dialysis if her renal function does not improve. Hold on diuretics (2) Chronic kidney disease, stage 3a: PLAN: Underlying diabetic nephropathy (3) Diabetes mellitus type 2 in obese: PLAN: On metformin discontinued on admission (4) [place] syndrome: PLAN: Plan: On Korlym (5) Debility: PLAN: Chronic (6) Hypoglycemia: PLAN: Due to poor oral intake (7) Morbid obesity: (8) Anemia: QUALIFIERS: Anemia type: due to chronic kidney disease Chronic kidney disease stage 3 subtype: stage 3a (GFR 45-59) PLAN: Hemoglobin 9.5 HPI Consult Data Date of Consult: 04/04/22 HPI Narrative Reason for Consultation: BALDO HPI Narrative: LA DORMAN, is a 66 F with past medical history for diabetes mellitus type 2, [place] syndrome on Korlym, chronic kidney disease stage 3A from diabetes with baseline creatinine 1.2 in December when she was last seen in my office. She presented with nausea and vomiting with hypoglycemia. She went to see her PCP for not feeling well. Blood work from 04/02/22 showed elevated creatinine of 7.7 and pt was instructed to go to ER. Creatinine 8 today. She denied drop in urine output. She had low sugars in the 30-40's due to poor intake. She had a tremor from low sugars. Denies confusion, change in MS. She was taken off her diuretics earlier this week for creatinine elevation to 2.3 on 03/29. She has been on lasix and spironolactone. She was on metformin at home for diabetes with insulin. [facility] Medical History (Updated 04/03/22 @ 10:[address] Leticia Layne DO) BALDO (acute kidney injury) Anemia Anemia of chronic renal failure, stage 3 (moderate) Back problem Bone fracture Cataracts, bilateral Diabetes type 2, controlled Major depressive disorder, recurrent episode Obstructive sleep apnea on CPAP Pancreatitis Vision problems Wound of skin Home Medications atorvastatin 40 mg PO QHS 01/06/20 [History Last Taken 03/31/22] metformin 1,000 mg PO BIDCM 01/06/20 [History Last Taken 04/01/22] pioglitazone 30 mg PO DAILY 01/06/20 [History Last Taken 04/01/22] pantoprazole 40 mg PO DAILY 09/10/20 [History Last Taken 04/01/22] Korlym 300 mg PO DAILY 02/17/22 [History Last Taken 04/01/22] Tresiba FlexTouch U-200 15 unit SUBCUT QHS 02/17/22 [History Last Taken 03/31/22] calcium carbonate 600 mg-vitamin D3 10 mcg (400 unit) tablet 2 tab PO DAILY tab 03/08/22 [History Last Taken 04/01/22] levothyroxine 25 mcg PO DAILY 04/02/22 [History Last Taken Unknown] Allergy/AdvReac Type Severity Reaction Status Date / Time adhesive tape AdvReac Intermediate Rash Verified 04/02/22 14:15 codeine AdvReac Intermediate Dizziness Verified 04/02/22 14:15 Family History Mother Diabetes Father Heart disease Hypertension Surgical History Hx of appendectomy Hx of cataract surgery Hx of cholecystectomy S/P partial hysterectomy Status post ORIF of fracture of ankle Social History household members: spouse Smoking Status: Never smoker second hand exposure: No alcohol intake: never substance use type: does not use salas/jew: Sikhism seatbelt use: always do you feel safe at home: Yes ROS Constitutional Constitutional: Reports weakness; Denies chills, fever(s) or malaise Eyes Eyes: Denies loss of vision Cardiovascular Cardiovascular: Denies chest pain Respiratory/Chest Respiratory/Chest: Denies hemoptysis or shortness of breath at rest Gastrointestinal Gastrointestinal: Reports abdominal pain, nausea and vomiting; Denies diarrhea Genitourinary Genitourinary: Reports other Details: no change in urine output ; Denies flank pain Musculoskeletal Musculoskeletal: Reports other Details: denies fall ; Denies abnormal gait Integumentary Integumentary: Denies rash Neurologic Neurologic: Reports other Details: tremor Psychiatric Psychiatric: Denies anxiety or depression Endocrine Endocrinology: Reports fatigue Hematologic/Lymphatic Hematologic/Lymphatic: Reports anemia Physical Exam Const alert, oriented x3 and no apparent distress HEENT normocephalic Eyes PERRL Neck no JVD Resp clear to auscultation bilaterally Cardio regular rate GI non-tender and non-distended Auscultation: normoactive bowel sounds Palpation: soft Extremity no clubbing, cyanosis or edema Extremity Narrative: gen weakness Skin no rashes or lesions noted Neuro oriented x3 Neuro Narrative: Tremors Sensorium / Orientation: awake and alert Motor Exam: tremor Type: Positive for other (mild BUE) Psych cooperative Lab / Micro Data Result Diagrams: 04/03/22 06:12 04/04/22 05:46 Labs: Laboratory Results - last 24 hr 04/02/22 16:15: POC Glucose 170 H 04/02/22 17:00: Ur Random Sodium 61, Urine Creatinine 65.60 04/02/22 22:24: POC Glucose 165 H 04/03/22 06:12: WBC 5.6, RBC 3.36 L, Hgb 9.5 L, Hct 29.1 L, MCV 86.6, MCH 28.3, MCHC 32.6, RDW Std Deviation 46.3 H, RDW Coeff of Joe 14.6, Plt Count 220, MPV 10.9, Immature Gran % (Auto) 0.400, Neut % (Auto) 67.8, Lymph % (Auto) 19.6, [place] % (Auto) 10.0, Eos % (Auto) 1.8, Baso % (Auto) 0.4, Absolute Neuts (auto) 3.8, Absolute Lymphs (auto) 1.10, Nucleated RBC % 0 04/03/22 06:12: PT 13.5, INR 1.1 04/03/22 06:12: Sodium 137, Potassium 4.0, Chloride 99, Carbon Dioxide 29.0, Anion Gap 9, BUN 52 H, Creatinine 8.01 H*, Estim Creat Clear Calc 5.07, Est GFR (MDRD) Af Amer 6 L, Est GFR (MDRD) Non-Af 5 L, BUN/Creatinine Ratio 6.5 L, Glucose 71 L, Calcium 8.2 L, Magnesium 1.7, TSH 4.76 H 04/03/22 06:50: POC Glucose 71 L Radiology Impression Renal Ultrasound 04/02/22 15:24 IMPRESSION: No acute findings in the retroperitoneum. Electronically Signed: Kapil Sotomayor MD at 20:09 EDT ,
[2022-04-03 11:30] LABS: Bedside Glucose 133 mg/dL (74-106)
--- NOTE | 2022-04-03 11:30 | CASEMGMT ---
CARLOS LIRIANO assessment: Face to Face with patient for initial transition planning/care coordination assessment. CARLOS LIRIANO introduced self and role at [facility], pt voices understanding and consents to assessment. Pt is sitting up in bed in no distress on room air. Pt is A/Ox4 and answers questions appropriately. Care providers, pharmacy, and demographics verified. Presentation: Pt sent in by Dr. 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 LNOK: Hero Rivera, ; Lilian Kitchen, daughter Living Arrangements: Pt lives with on main level of 2 story home and states no concerns at home. Pt is independent with ADL's. Transportation: Pt states drives and states no transportation concerns. DME/HHC: Pt has a cpap thru [facility] and states no need for any further DME. Pt states no hx of HHC or SNF. Pt states no concerns with going home at time of discharge. Pt is retired. Pt states does not smoke cigarettes or drink ETOH. Pt states no further concerns/needs. CM to follow for any further discharge planning/needs. Advised pt to ask for CM if any further questions/concerns/needs arise, voices understanding. Pt Goal: Home Plan: [place] CARLOS LIRIANO
[2022-04-03 13:16] LABS: Phosphorus 4.4 mg/dL (2.5-4.9)
[2022-04-03 13:39] VITALS: BP 128/56; PULSE 87; RESP 16; TEMP 36.8; O2SAT 92
[2022-04-03 16:21] LABS: Bedside Glucose 136 mg/dL (74-106)
[2022-04-03 21:30] VITALS: BP 121/59; PULSE 88; RESP 16; TEMP 36.9; O2SAT 92
[2022-04-03] MEDS: Insulin Lispro 100 UNIT/ML INSULN.PEN SC (21:37)
[2022-04-03] MEDS: Atorvastatin Calcium 40 MG Tablet PO (21:37)
[2022-04-03 21:50] LABS: Bedside Glucose 153 mg/dL (74-106)
[2022-04-04 03:30] VITALS: BP 108/53; PULSE 83; RESP 16; TEMP 36.8; O2SAT 100
[2022-04-04] MEDS: Levothyroxine 25 MCG TABLET PO (06:16)
[2022-04-04 06:26] LABS: Bedside Glucose 92 mg/dL (74-106)
[2022-04-04 06:42] LABS: Anion Gap 9 (5-15); BUN 53 mg/dL (7-18); BUN/Creat Ratio 6.2 RATIO (10-20); Chloride 103 mmol/L (98-107); Creatinine, Serum 8.53 mg/dL (0.55-1.02); EST Glomerular Filtration Rate 5 mL/min (>60); Est Glom Filt Rate - Afr Amer 6 mL/min (>60); Estimated Creatinine Clearance 4.76 ml/min; Glucose 88 mg/dL (74-106); Potassium 4.3 mmol/L (3.5-5.1); Sodium Level 137 mmol/L (136-145)
--- NOTE | 2022-04-04 07:09 | PCM.PN.HOSP ---
Subjective Subjective Patient seen, kidney function continues to worsen with creatinine at 8.53. She also has significant edema involving extremities as well as hands. IV fluids discontinued Objective Data Objective Data Vital Signs: Vital Signs Temp Pulse Resp BP Pulse Ox 98.3 F 83 16 108/53 L 100 04/04/22 03:30 04/04/22 03:30 04/04/22 03:30 04/04/22 03:30 04/04/22 03:30 Oxygen Flow Rate (L/min) 2 Oxygen Delivery Method Nasal Cannula Weight: 95.5 kg Body Mass Index (BMI) 39.7 Intake & Output: Intake and Output for Last 24 Hours 04/02/22 04/03/22 04/04/22 23:59 23:59 23:59 Intake Total 1120 / 1120 3005.0 / 3005.0 Output Total 675 / 975 450 / 450 Balance 1090 / 1040 2330.0 / 2030.0 -450 / -450 Lab / Micro Data Result Diagrams: 04/03/22 06:12 04/04/22 05:46 Labs: Laboratory Results - last 24 hr 04/03/22 06:12: Sodium 137, Potassium 4.0, Chloride 99, Carbon Dioxide 29.0, Anion Gap 9, BUN 52 H, Creatinine 8.01 H*, Estim Creat Clear Calc 5.07, Est GFR (MDRD) Af Amer 6 L, Est GFR (MDRD) Non-Af 5 L, BUN/Creatinine Ratio 6.5 L, Glucose 71 L, Calcium 8.2 L, Magnesium 1.7, TSH 4.76 H 04/03/22 11:26: POC Glucose 133 H 04/03/22 12:25: Phosphorus 4.4, Albumin 3.0 L 04/03/22 16:09: POC Glucose 136 H 04/03/22 21:35: POC Glucose 153 H 04/04/22 05:46: Sodium 137, Potassium 4.3, Chloride 103, Carbon Dioxide 25.0, Anion Gap 9, BUN 53 H, Creatinine 8.53 H*, Estim Creat Clear Calc 4.76, Est GFR (MDRD) Af Amer 6 L, Est GFR (MDRD) Non-Af 5 L, BUN/Creatinine Ratio 6.2 L, Glucose 88, Calcium 8.0 L 04/04/22 06:15: POC Glucose 92 Physical Exam Narrative GENERAL: cooperative HEENT: Atraumatic; EYES; Anicteric, Normal Conjunctiva NECK; supple, normal thyroid, RESPIRATORY: Diminished to auscultation CARDIOVASCULAR: Regular S1 S2, GI: soft, normoactive bowel sounds, : No Renal angle tenderness; EXTREMITIES: Edema of both upper and lower extremities, no clubbing, MUSCULOSKELETAL: no muscle wasting NEURO: Awake; no lateralizing signs. SKIN: No Rash PSYCH; Flat affect Assessment & Plan Assessment/Plan (1) BALDO (acute kidney injury): (2) [place] syndrome: (3) Diabetes mellitus: (4) Chronic kidney disease, stage 3a: (5) Hypoglycemia: PLAN: Patient is a 66-year-old female sent to the emergency department by her primary care physician with abnormal labs 1. Acute kidney injury ? Superimposed on chronic kidney disease stage IIIa. Patient has been admitted to regular nursing floor started on IV fluids. As part of a management ordered serial BMPs q. morning, urine sodium, urine creatinine as well as ultrasound of the kidneys consult was placed to nephrology Dr. Layne 04/03/2022; Patient seen her kidney function actually did worsen with creatinine going up from 7.72-8.01. BUN remains unchanged. We will continue with current IV fluid if patient does not respond patient may need to undergo kidney biopsy to evaluate the underlying etiology. This decision will be deferred to nephrology -04/04/2022; Patient seen, kidney function continues to worsen with creatinine at 8.53. She also has significant edema involving extremities as well as hands. IV fluids discontinued Case discussed with Dr. Layne with nephrology a single dose of Lasix given to help with patient's edema 2. Diabetes mellitus type 2 ? With complications including hypoglycemic episode. Held patient long-acting insulin she was placed on Accu-Cheks before meals and at bedtime with sliding scale coverage. 3. Chronic kidney disease stage IIIa As a result of diabetic nephropathy. Patient presented with BALDO management as discussed above 4. 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 Dyslipidemia -Patient is on statin therapy, continued at home dose 7. Class II obesity with BMI of 39.8 ? Weight loss advised 8. DVT prophylaxis ? SC heparin Charges/Coding Visit Charges Inpatient E&M: 21916 [facility] Hosp L3
[2022-04-04] MEDS: Calcium Carb/Vitamin D 1 TABLET Tablet 2 TABLET PO (08:29)
[2022-04-04 08:33] VITALS: BP 116/54; PULSE 87; RESP 16; TEMP 36.8; O2SAT 94
[2022-04-04] MEDS: Furosemide 100 MG/10 ML Vial 60 MG IV (09:58)
[2022-04-04] MEDS: 0.9% Saline Lock 10 ML Syringe IV (09:59)
[2022-04-04] MEDS: Heparin Injection (Vial) 5,000 UNIT/ML VIAL 5000 UNIT SC ×2 (10:01→21:28)
[2022-04-04] MEDS: Pantoprazole Sodium 40 MG Tablet PO (10:01)
[2022-04-04 11:31] LABS: Bedside Glucose 156 mg/dL (74-106)
[2022-04-04] MEDS: Insulin Lispro 100 UNIT/ML INSULN.PEN SC (12:34)
[2022-04-04 12:58] VITALS: BP 131/56; PULSE 86; RESP 16; TEMP 36.9; O2SAT 95
[2022-04-04 16:11] LABS: Bedside Glucose 148 mg/dL (74-106)
[2022-04-04 17:02] VITALS: BP 141/68; PULSE 79; RESP 16; TEMP 37.2; O2SAT 96
[2022-04-04] MEDS: Atorvastatin Calcium 40 MG Tablet PO (21:28)
[2022-04-04 21:35] LABS: Bedside Glucose 134 mg/dL (74-106)
[2022-04-04 23:11] VITALS: BP 145/64; PULSE 86; RESP 16; TEMP 37.4; O2SAT 94
[2022-04-05] VITALS (13 sets, daily range): BP systolic 116–163; BP diastolic 53–76; PULSE 80–93; RESP 14–18; TEMP 36.7–37.4; O2SAT 92–100; BMI 39.7
[2022-04-05 06:15] LABS: Anion Gap 7 (5-15); BUN 60 mg/dL (7-18); BUN/Creat Ratio 6.3 RATIO (10-20); Calcium,Total 8.5 mg/dL (8.5-10.1); Chloride 101 mmol/L (98-107); Creatinine, Serum 9.48 mg/dL (0.55-1.02); EST Glomerular Filtration Rate 4 mL/min (>60); Est Glom Filt Rate - Afr Amer 5 mL/min (>60); Estimated Creatinine Clearance 4.29 ml/min; Glucose 113 mg/dL (74-106); Potassium 4.3 mmol/L (3.5-5.1); Sodium Level 136 mmol/L (136-145)
[2022-04-05] MEDS: Levothyroxine 25 MCG TABLET PO (06:22)
[2022-04-05 06:31] LABS: Bedside Glucose 124 mg/dL (74-106)
--- NOTE | 2022-04-05 08:34 | PN.RENAL_ITS ---
Subjective Subjective denies nausea, vomiting, tremor. Edema improved off iv fluids and received lasix x1. Denied SOB Objective Data Objective Data Vital Signs: Vital Signs Temp Pulse Resp BP Pulse Ox 98.3 F 81 16 142/54 H 99 04/05/22 07:51 04/05/22 07:51 04/05/22 07:51 04/05/22 07:51 04/05/22 07:51 Oxygen Flow Rate (L/min) 2 Oxygen Delivery Method Room Air Weight: 95.5 kg Body Mass Index (BMI) 39.7 Intake & Output: Intake and Output for Last 24 Hours 04/03/22 04/04/22 04/05/22 23:59 23:59 23:59 Intake Total 3005.0 / 3005.0 1633.75 / 1633.75 Output Total 675 / 975 1200 / 1550 950 / 950 Balance 2330.0 / 2030.0 433.75 / 83.75 -950 / -950 Lab / Micro Data Result Diagrams: 04/03/22 06:12 04/05/22 05:25 Labs: Laboratory Results - last 24 hr 04/04/22 11:24: POC Glucose 156 H 04/04/22 16:06: POC Glucose 148 H 04/04/22 21:26: POC Glucose 134 H 04/05/22 05:25: Sodium 136, Potassium 4.3, Chloride 101, Carbon Dioxide 28.0, Anion Gap 7, BUN 60 H, Creatinine 9.48 H*, Estim Creat Clear Calc 4.29, Est GFR (MDRD) Af Amer 5 L, Est GFR (MDRD) Non-Af 4 L, BUN/Creatinine Ratio 6.3 L, Glucose 113 H, Calcium 8.5 04/05/22 06:21: POC Glucose 124 H Physical Exam Const alert and oriented x3 Resp clear to auscultation bilaterally Cardio regular rate and no rub GI non-tender and non-distended Palpation: soft Extremity no clubbing, cyanosis or edema Neuro Sensorium / Orientation: awake and alert Psych cooperative Assessment & Plan Assessment/Plan (1) BALDO (acute kidney injury): PLAN: Baseline creatinine 1.2 increased to 9 today suspect due to m etformin. Discussed with hospitalist and pt that we will initiate dialysis today due to worsening renal fxn. Consulted surgery for dialysis catheter placement with dialysis afterwards. Will arrange outpt dialysis for BALDO. C (2) Chronic kidney disease, stage 3a: PLAN: Underlying diabetic nephropathy with baseline creatinine 1.2 (3) Diabetes mellitus type 2 in obese: PLAN: On metformin discontinued on admission (4) Laura syndrome: PLAN: Plan: leo Valdez (5) Debility: PLAN: Chronic (6) Hypoglycemia: PLAN: stable (7) Morbid obesity: (8) Anemia: QUALIFIERS: Anemia type: due to chronic kidney disease Chronic kidney disease stage 3 subtype: stage 3a (GFR 45-59) PLAN: Hemoglobin stable
--- NOTE | 2022-04-05 09:39 | PN.HOSP_ITS ---
Subjective Subjective Follow-up on acute kidney injury: Patient was seen and examined. She is going for dialysis catheter today. Denied any new complaints. Objective Data Objective Data Vital Signs: Vital Signs Temp Pulse Resp BP Pulse Ox 98.3 F 81 16 142/54 H 99 04/05/22 07:51 04/05/22 07:51 04/05/22 07:51 04/05/22 07:51 04/05/22 07:51 Oxygen Flow Rate (L/min) 2 Oxygen Delivery Method Room Air Weight: 95.5 kg Body Mass Index (BMI) 39.7 Intake & Output: Intake and Output for Last 24 Hours 04/03/22 04/04/22 04/05/22 23:59 23:59 23:59 Intake Total 3005.0 / 3005.0 1633.75 / 1633.75 Output Total 675 / 975 1200 / 1550 950 / 950 Balance 2330.0 / 2030.0 433.75 / 83.75 -950 / -950 Lab / Micro Data Result Diagrams: 04/05/22 05:25 04/05/22 05:25 Labs: Laboratory Results - last 24 hr 04/04/22 11:24: POC Glucose 156 H 04/04/22 16:06: POC Glucose 148 H 04/04/22 21:26: POC Glucose 134 H 04/05/22 05:25: Sodium 136, Potassium 4.3, Chloride 101, Carbon Dioxide 28.0, An ion Gap 7, BUN 60 H, Creatinine 9.48 H*, Estim Creat Clear Calc 4.29, Est GFR (MDRD) Af Amer 5 L, Est GFR (MDRD) Non-Af 4 L, BUN/Creatinine Ratio 6.3 L, Glucose 113 H, Calcium 8.5 04/05/22 06:21: POC Glucose 124 H Physical Exam Narrative Physical exam: General: Alert, Oriented x3, Cooperative, No apparent distress HEENT: Atraumatic Oral: Moist Mucosa Neck: Supple Lungs: Clear to auscultation Cardiovascular: HS I+II, regular, no murmurs Abdomen: Bowel Sounds Present, Soft, Non Tender, wade catheter has clear urine Extremities: Bilateral pedal edema +1 Skin: No rashes, No breakdown Neurological: Grossly intact Psych/Mental Status: Appropriate Assessment & Plan Assessment/Plan (1) BALDO (acute kidney injury): (2) [place] syndrome: (3) Diabetes mellitus: (4) Chronic kidney disease, stage 3a: (5) Hypoglycemia: PLAN: 1. Acute kidney injury on CKD stage IIIa Patient's creatinine is now 9.48, worsened from 8.53 Patient will be started on dialysis; discussed with nephrology, no need for kidney biopsy General surgery consulted for dialysis catheter placement 2. Type II DM, blood sugars are controlled, continue on insulin sliding scale with blood sugar checks 3. Rest of her chronic medical conditions remained stable -hypothyroidi sm/patient syndrome/dyslipidemia/obesity Continue on statin, levothyroxine, mifepristone 4. DVT prophylaxis?heparin subcu Charges/Coding Visit Charges Inpatient E&M: 06921 Subs Hosp L2
[2022-04-05 10:06] LABS: Absolute Lymphocyte Count 1.21 X10^3/uL (0.83-4.51); Basophil# 0.03 X10^3/uL; Basophil% 0.5 % (0-1); Eosinophil# 0.16 X10^3/uL; Eosinophils% 2.7 % (0-5); Hemoglobin 8.3 g/dL (12.0-15.0); Lymphocyte # 1.21 X10^3/ul (0.83-4.51); Lymphocyte % 20.6 % (19-41); Mean Corp Hgb Conc 31.9 g/dL (32-36); Mean Corpuscular Hgb 28.1 pg (27.0-32.0); Mean Corpuscular Volume 88.1 fL (81-99); Mean Platelet Vol. 10.9 fl (6.2-12.0); Monocyte# 0.52 X10^3/uL; Monocyte% 8.8 % (0-10); NRBC Flagged by Analyzer 0 % (0-5); Neutrophil # 3.95 X10^3/uL (2.7-7.7); Neutrophil % 67.2 % (47-70); Platelet Count 182 K/mm3 (150-450); RBC Distribution Width CV 14.6 % (11.6-14.6); RBC Distribution Width SD 47.2 fl (35.1-43.9); Red Blood Count 2.95 M/mm3 (4.2-5.4); White Blood Count 5.9 K/mm3 (4.4-11.0)
--- NOTE | 2022-04-05 10:20 | CON.PCM.SX_ITS ---
Assessment & Plan Assessment/Plan (1) End stage renal disease: PLAN: I have been consulted in conjunction with Dr. Murray. He will independently evaluate this patient. Dr. Murray will plan to perform a right possible left chest tunneled dialysis catheter placement. Procedure details, risks and benefits have been explained. Patient has had the opportunity to ask and have questions answered. Patient verbally understands and agrees with the plan. Keep patient NPO. Plan for procedure this afternoon. Thank you for allowing us to participate in this patient's care. HPI Consult Data Date of Consult: 04/05/22 HPI Narrative HPI Narrative: LA DORMAN, is a 66 F who presents with nausea, vomiting and abnormal labs. Patient had notified her PCP she had developed nausea and vomiting on 04/01. Dr. Morel had recommended patient to have lab work completed on 04/02. Patient's creatinine returned as 7.72 and was recommended to have the patient proceed to the ER. Patient's last creatinine on 03/29 was 2.31. Patient has been following with Dr. Layne, nephrology, for the last year. Patient has never previous been on dialysis. She denies having chest catheters previously. S he denies having any central lines or IV within the neck region. She does not have a pacemaker or defibrillator. She denies previous myocardial infarction, stroke or blood clots. She is not on blood thinners at home. She has never had COVID. She has completed her COVID vaccine and 2 boosters with the last booster being within 6 months of today's date. She has a history of Cushings disease and sleep apnea which she has a CPAP machine for however does not use the machine at home. [facility] Medical History (Updated 04/05/22 @ 10:35 by Deja MCKINNEY, PA-C) BALDO (acute kidney injury) Anemia Anemia of chronic renal failure, stage 3 (moderate) Back problem Bone fracture Cataracts, bilateral Diabetes type 2, controlled Major depressive disorder, recurrent episode Obstructive sleep apnea on CPAP Pancreatitis Vision problems Wound of skin Home Medications atorvastatin 40 mg PO QHS 01/06/20 [History Last Taken 03/31/22] metformin 1,000 mg PO BIDCM 01/06/20 [History Last Taken 04/01/22] pioglitazone 30 mg PO DAILY 01/06/20 [History Last Taken 04/01/22] pantoprazole 40 mg PO DAILY 09/10/20 [History Last Taken 04/01/22] Korlym 300 mg PO DAILY 02/17/22 [History Last Taken 04/01/22] Tresiba FlexTouch U-200 15 unit SUBCUT QHS 02/17/22 [History Last Taken 03/31/22] calcium carbonate 600 mg-vitamin D3 10 mcg (400 unit) tablet 2 tab PO DAILY tab 03/08/22 [History Last Taken 04/01/22] levothyroxine 25 mcg PO DAILY 04/02/22 [History Last Taken Unknown] Allergy/AdvReac Type Severity Reaction Status Date / Time adhesive tape AdvReac Intermediate Rash Verified 04/02/22 14:15 codeine AdvReac Intermediate Dizziness Verified 04/02/22 14:15 Family History Mother Diabetes Father Heart disease Hypertension Surgical History Hx of appendectomy Hx of cataract surgery Hx of cholecystectomy S/P partial hysterectomy Status post ORIF of fracture of ankle Social History household members: spouse Smoking Status: Never smoker second hand exposure: No alcohol intake: never substance use type: does not use salas/latter day: Gnosticism seatbelt use: always do you feel safe at home: Yes ROS Constitutional Constitutional: Reports anorexia Eyes Eyes: Reports systems reviewed and no addt'l complaints, except as documented ENT HEENT: Reports systems reviewed and no addt'l complaints, except as documented Cardiovascular Cardiovascular: Reports systems reviewed and no addt'l complaints, except as documented Respiratory/Chest Respiratory/Chest: Reports systems reviewed and no addt'l complaints, except as documented Gastrointestinal Gastrointestinal: Reports systems reviewed and no addt'l complaints, except as documented Genitourinary Genitourinary: Reports systems reviewed and no addt'l complaints, except as documented Musculoskeletal Musculoskeletal: Reports systems reviewed and no addt'l complaints, except as documented Integumentary Integumentary: Reports systems reviewed and no addt'l complaints, except as documented Neurologic Neurologic: Reports systems reviewed and no addt'l complaints, except as documented Psychiatric Psychiatric: Reports systems reviewed and no addt'l complaints, except as documented Endocrine Endocrinology: Reports systems reviewed and no addt'l complaints, except as documented Hematologic/Lymphatic Hematologic/Lymphatic: Reports systems reviewed and no addt'l complaints, except as documented Allergic/Immunologic Allergic/Immunologic: Reports systems reviewed and no addt'l complaints, except as documented Physical Exam Const alert, oriented x3 and no apparent distress General Appearance: cooperative HEENT normocephalic and head/scalp atraumatic Eyes PERRL and EOMs intact bilaterally Neck full ROM and supple Lymph Lymphatic: no lymphadenopathy noted Chest inspection of chest normal Resp normal respiratory effort and clear to auscultation bilaterally Cardio Rate: regular rate Rhythm: regular rhythm GI soft to palpation, non-tender and non-distended Bladder / Kidney Exam: no CVA tenderness Back/Spine no CVA tenderness Extremity General Extremity: normal exam except as noted Skin no rashes or lesions noted Neuro CN's II-XII intact bilaterally Psych mental status grossly normal Lab / Micro Data Result Diagrams: 04/05/22 05:25 04/05/22 05:25 Labs: Laboratory Results - last 24 hr 04/04/22 11:24: POC Glucose 156 H 04/04/22 16:06: POC Glucose 148 H 04/04/22 21:26: POC Glucose 134 H 04/05/22 05:25: Sodium 136, Potassium 4.3, Chloride 101, Carbon Dioxide 28.0, Anion Gap 7, BUN 60 H, Creatinine 9.48 H*, Estim Creat Clear Calc 4.29, Est GFR (MDRD) Af Amer 5 L, Est GFR (MDRD) Non-Af 4 L, BUN/Creatinine Ratio 6.3 L, Glucose 113 H, Calcium 8.5 04/05/22 05:25: WBC 5.9, RBC 2.95 L, Hgb 8.3 L, Hct 26.0 L, MCV 88.1, MCH 28.1, MCHC 31.9 L, RDW Std Deviation 47.2 H, RDW Coeff of Joe 14.6, Plt Count 182, MPV 10.9, Immature Gran % (Auto) 0.200, Neut % (Auto) 67.2, Lymph % (Auto) 20.6, [place] % (Auto) 8.8, Eos % (Auto) 2.7, Baso % (Auto) 0.5, Absolute Neuts (auto) 4.0, Absolute Lymphs (auto) 1.21, Nucleated RBC % 0 04/05/22 06:21: POC Glucose 124 H Charges/Coding Visit Charges Office Visits / Consults: [id number] IP Consult L3
[2022-04-05 10:55] LABS: Bedside Glucose 112 mg/dL (74-106)
--- NOTE | 2022-04-05 11:09 | CASEMGMT ---
Addendum entered by Patricia Macario 04/05/22 11:51: Initiated referral on [facility] portal and faxed available documentation at this time. Original Note: CARLOS LIRIANO notified that pt will start dialysis today and will need set up. CARLOS LIRIANO in to pt room, pt states she will have her catheter placed at 3pm. Discussed options for dialysis centers, pt chose [facility] in [place]. CARLOS LIRIANO to initiate dialysis.
[2022-04-05 15:31] LABS: Bedside Glucose 89 mg/dL (74-106)
[2022-04-05] MEDS: 0.9% Normal Saline 1,000 ML 15 ML IV (16:15)
[2022-04-05] MEDS: Cefazolin 2 GM in 0.9% Normal Saline 100 ML IV (16:17)
[2022-04-05] MEDS: Lidocaine 1% /Epi 1:100 (20ml) 20 ML Vial (17:12)
[2022-04-05] MEDS: Heparin 10,000 UNITS/10 ML Vial 10000 UNITS (17:13)
--- NOTE | 2022-04-05 17:24 | OP.PCM_ITS ---
Report of Operation Date of Procedure: 04/05/22 Pre-Operative Diagnosis: 1. Acute on chronic renal failure requiring hemodialy sis access Post-Operative Diagnosis: Same Surgery/Procedure Performed:: Insertion of tunneled hemodialysis catheter (Precurved 14.5 Latvian, 19 cm length) Description of Surgical Findings:: ? Normal vascular neck anatomy with widely patent internal jugular vein ? Easily aspirating and flushing 14.5 Latvian catheter Surgeon: Kapil Murray Type of Anesthesia: General/Supplemental Anesthesiologist: Kirill Lerma Special Medications: 5 mL heparinized saline Specimen's removed: Not applicable Drains: None Estimated Blood Loss (mL): 10 Description of Procedure: After appropriate identification in the preoperative holding area the patient was brought to the operating room where that they were positioned supine on the operating room table. Preoperative antibiotics were completely administered. Sedation was begun per anesthesia and the patient's right neck was prepped and draped in usual sterile fashion after confirming patency of the right internal jugular vein with bedside ultrasound. Formal timeout was conducted to confirm both the patient and the procedure. Procedure was begun with ultrasound-guided access of the right internal jugular vein using a micropuncture access kit. Fluoroscopy confirmed appropriate position of the wire and the micro access sheath. The 035 guidewire from the catheter kit was placed through the micro access sheath and again fluoroscopy was used to confirm this placement. At this point I made a measurement from the insertion site to the mid atrium of approximately 15 cm. Desiring some room for the patient's tunneling/cuff placement, elected to proceed with a 19 cm catheter.The insertion site was then enlarged sharply and bluntly. Measuring back from the proximal insertion site on the catheter, we determined that the tunneling site would need to be at least 8 cm away from the insertion site. Therefore this was measured out on the patient's chest and a counterincision was made at this point after instilling local anesthetic. A gentle curve of the tunneling tract to the insertion site was also instilled with local anesthetic. Next the insertion site was serially dilated and the peel-away sheath was placed under fluoroscopy. Then the catheter was connected to the tunneling device and was tunneled to the insertion site. The catheter was fed through the peel-away sheath and once we neared completion another fluoroscopy image was obtained. Functionally, the catheter was tested with aspiration and flush of injectable saline which it did with ease. The insertion site was then closed with a single 3-0 Vicryl interrupted stitch followed by a single interrupted 3-0 nylon stitch. Another 3-0 nylon stitch was used to close down the insertion site at the tunneling entrance as a means of creating a cerclage. Lastly, the catheter was secured at the tiedown points on each port with a interrupted 2-0 nylon. Now the catheter was locked with 5 mL (2.5/lm) heparinized saline (concentration 1000 units/mL) per package specification. Biopatch was placed about the tunneling entrance site and a 4 x 4 gauze was folded in half and taped lengthwise over the catheter with a 3000 drape as a dressing. A small OpSite was applied to the insertion site. Patient was then allowed to emerge from sedation and was taken to PACU in stable condition. A chest x-ray was ordered in PACU for review of the catheter placement and to exclude pneumothorax. Complications None Admit VTE Documentation VTE Present on Admission: Yes VTE Mechan Device Prophylaxis: SCD's VTE Pharm Prophylaxis ordered?: No Procedures Cardiovascular CF Procedures [id number]: [id number] Insert tunneled cv cath
--- NOTE | 2022-04-05 17:50 | RAD_ITS ---
STUDY: X-RAY CHEST REASON FOR EXAM: Female, 66 years old. Follow-up tunneled dialysis catheter placement TECHNIQUE: AP COMPARISON: 01/06/2020 FINDINGS: Right jugular dialysis catheter present with tip overlying the cavoatrial junction. Reticular opacity in the left lung base is new. There is no demonstrated pleural abnormality. Normal size heart. Normal mediastinum and jovanni. Normal visualized pulmonary arteries. Normal visualized aortic arch and descending thoracic aorta. Normal visualized thoracic spine. Normal visualized ribs, clavicles, and shoulders. There is no demonstrated abnormality of the visualized soft tissue structures of the upper abdomen. RAD/CXR for Line Placement IMPRESSION: Right jugular dialysis catheter with tip overlying the cavoatrial junction. Left lower lobe atelectasis or infiltrate. Electronically Signed: Avila Niño MD ([place]) at 18:06 EDT ,
--- NOTE | 2022-04-05 20:59 | DIALYSIS ---
Pt tolerated 2.5hr HD tx well. Net UF Even. Hepatitis labs drawn and sent. See flow record for tx data.
[2022-04-05] MEDS: Insulin Lispro 100 UNIT/ML INSULN.PEN SC (22:00)
[2022-04-05] MEDS: Atorvastatin Calcium 40 MG Tablet PO (22:00)
[2022-04-05 22:11] LABS: Bedside Glucose 153 mg/dL (74-106)
[2022-04-06 02:57] VITALS: BP 145/63; PULSE 77; RESP 18; TEMP 36.8; O2SAT 95
[2022-04-06 06:21] LABS: Hematocrit 27.6 % (37-47); Hemoglobin 8.9 g/dL (12.0-15.0); Mean Corp Hgb Conc 32.2 g/dL (32-36); Mean Corpuscular Volume 86.8 fL (81-99); Mean Platelet Vol. 10.7 fl (6.2-12.0); Platelet Count 174 K/mm3 (150-450); RBC Distribution Width CV 14.6 % (11.6-14.6); RBC Distribution Width SD 46.7 fl (35.1-43.9); Red Blood Count 3.18 M/mm3 (4.2-5.4); White Blood Count 5.8 K/mm3 (4.4-11.0)
[2022-04-06] MEDS: Levothyroxine 25 MCG TABLET PO (06:35)
[2022-04-06 06:40] LABS: Bedside Glucose 105 mg/dL (74-106)
[2022-04-06 07:02] LABS: Albumin, Serum 2.7 g/dL (3.2-5.0); BUN 35 mg/dL (7-18); BUN/Creat Ratio 5.3 RATIO (10-20); Calcium,Total 8.2 mg/dL (8.5-10.1); Chloride 99 mmol/L (98-107); EST Glomerular Filtration Rate 7 mL/min (>60); Est Glom Filt Rate - Afr Amer 8 mL/min (>60); Estimated Creatinine Clearance 6.16 ml/min; Glucose 94 mg/dL (74-106); Phosphorus 4.2 mg/dL (2.5-4.9); Potassium 3.9 mmol/L (3.5-5.1); Sodium Level 137 mmol/L (136-145)
[2022-04-06 07:28] VITALS: O2SAT 94
--- NOTE | 2022-04-06 07:52 | PN.HOSP_ITS ---
Objective Data Objective Data Vital Signs: Vital Signs Temp Pulse Resp BP Pulse Ox 98.2 F 77 18 145/63 H 95 04/06/22 02:57 04/06/22 02:57 04/06/22 02:57 04/06/22 02:57 04/06/22 02:57 Oxygen Flow Rate (L/min) 2 Oxygen Delivery Method Room Air Weight: 95.5 kg Body Mass Index (BMI) 39.7 Intake & Output: Intake and Output for Last 24 Hours 04/04/22 04/05/22 04/06/22 23:59 23:59 23:59 Intake Total 1633.75 / 1633.75 200.25 / 200.25 Output Total 1200 / 1550 2000 / 2000 800 / 800 Balance 433.75 / 83.75 -1799.75 / -1799.75 -800 / -800 Lab / Micro Data Result Diagrams: 04/06/22 05:40 04/06/22 05:40 Labs: Laboratory Results - last 24 hr 04/05/22 05:25: WBC 5.9, RBC 2.95 L, Hgb 8.3 L, Hct 26.0 L, MCV 88.1, MCH 28.1, MCHC 31.9 L, RDW Std Deviation 47.2 H, RDW Coeff of Joe 14.6, Plt Count 182, MPV 10.9, Immature Gran % (Auto) 0.200, Neut % (Auto) 67.2, Lymph % (Auto) 20.6, [place] % (Auto) 8.8, Eos % (Auto) 2.7, Baso % (Auto) 0.5, Absolute Neuts (auto) 4.0, Absolute Lymphs (auto) 1.21, Nucleated RBC % 0 04/05/22 10:50: POC Glucose 112 H 04/05/22 15:28: POC Glucose 89 04/05/22 21:59: POC Glucose 153 H 04/06/22 05:40: Sodium 137, Potassium 3.9, Chloride 99, Carbon Dioxide 32.0, BUN 35 H, Creatinine 6.60 H, Estim Creat Clear Calc 6.16, Est GFR (MDRD) Af Amer 8 L , Est GFR (MDRD) Non-Af 7 L, BUN/Creatinine Ratio 5.3 L, Glucose 94, Calcium 8.2 L, Phosphorus 4.2, Albumin 2.7 L 04/06/22 05:40: WBC 5.8, RBC 3.18 L, Hgb 8.9 L, Hct 27.6 L, MCV 86.8, MCH 28.0, MCHC 32.2, RDW Std Deviation 46.7 H, RDW Coeff of Joe 14.6, Plt Count 174, MPV 10.7 04/06/22 06:35: POC Glucose 105 Radiography Diagnostic Testing: Radiology Impression Chest X-Ray 04/05/22 17:50 IMPRESSION: Right jugular dialysis catheter with tip overlying the cavoatrial junction. Left lower lobe atelectasis or infiltrate. Electronically Signed: Avila Niño MD ([place]) at 18:06 EDT Reading Location ID and State: [facility] / [place] , Service support ,
[2022-04-06 08:06] LABS: Hepatitis B Surface Antigen Non-Reactive (Nonreactive)
--- NOTE | 2022-04-06 08:07 | PN.SURG_ITS ---
Subjective Subjective Patient seen and examined during AM rounds. She is found resting in bed. She denies any significant discomfort from her catheter site. She confirms that she tolerated yesterday's hemodialysis session without issue. Objective Data Objective Data Vital Signs: Vital Signs Temp Pulse Resp BP Pulse Ox 98.2 F 77 18 145/63 H 95 04/06/22 02:57 04/06/22 02:57 04/06/22 02:57 04/06/22 02:57 04/06/22 02:57 Oxygen Flow Rate (L/min) 2 Oxygen Delivery Method Room Air Weight: 210 lb 8.663 oz Body Mass Index (BMI) 39.7 Intake & Output: Intake and Output for Last 24 Hours 04/04/22 04/05/22 04/06/22 23:59 23:59 23:59 Intake Total 1633.75 / 1633.75 200.25 / 200.25 Output Total 1200 / 1550 2000 / 2000 800 / 800 Balance 433.75 / 83.75 -1799.75 / -1799.75 -800 / -800 Lab / Micro Data Result Diagrams: 04/06/22 05:40 04/06/22 05:40 Labs: Laboratory Results - last 24 hr 04/05/22 05:25: WBC 5.9, RBC 2.95 L, Hgb 8.3 L, Hct 26.0 L, MCV 88.1, MCH 28.1, MCHC 31.9 L, RDW Std Deviation 47.2 H, RDW Coeff of Joe 14.6, Plt Count 182, MPV 10.9, Immature Gran % (Auto) 0.200, Neut % (Auto) 67.2, Lymph % (Auto) 20.6, [place] % (Auto) 8.8, Eos % (Auto) 2.7, Baso % (Auto) 0.5, Absolute Neuts (auto) 4. 0, Absolute Lymphs (auto) 1.21, Nucleated RBC % 0 04/05/22 10:50: POC Glucose 112 H 04/05/22 15:28: POC Glucose 89 04/05/22 18:15: Hep Bs Antigen Non-Reactive 04/05/22 21:59: POC Glucose 153 H 04/06/22 05:40: Sodium 137, Potassium 3.9, Chloride 99, Carbon Dioxide 32.0, BUN 35 H, Creatinine 6.60 H, Estim Creat Clear Calc 6.16, Est GFR (MDRD) Af Amer 8 L , Est GFR (MDRD) Non-Af 7 L, BUN/Creatinine Ratio 5.3 L, Glucose 94, Calcium 8.2 L, Phosphorus 4.2, Albumin 2.7 L 04/06/22 05:40: WBC 5.8, RBC 3.18 L, Hgb 8.9 L, Hct 27.6 L, MCV 86.8, MCH 28.0, MCHC 32.2, RDW Std Deviation 46.7 H, RDW Coeff of Joe 14.6, Plt Count 174, MPV 10.7 04/06/22 06:35: POC Glucose 105 Radiography Diagnostic Testing: Radiology Impression Chest X-Ray 04/05/22 17:50 IMPRESSION: Right jugular dialysis catheter with tip overlying the cavoatrial junction. Left lower lobe atelectasis or infiltrate. Electronically Signed: Avila Niño MD ([place]) at 18:06 EDT , Physical Exam Const no apparent distress Neck Neck Narrative: There is slight bloody drainage to patient's operative dressing in the right neck. Otherwise, there is no tense soft tissue or skin discoloration to suggest underlying hematoma. Both the insertion site here and the tunneling site appear appropriate. Patient has minimal tenderness with palpation over these tissues. Resp normal respiratory effort Assessment & Plan Assessment/Plan (1) S/P dialysis catheter insertion: PLAN: In 2Patient postoperative day 1 from right tunneled dialysis catheter insertion. According to the chart and patient's verification catheter functioned appropriately. It appears to be in good order with today's exam and there is no signs of underlying hematoma or ongoing bleeding. Therefore, will defer to patient's primary team and nephrology for remainder of clinical management. Thank you for the opportunity to participate in Mrs. Rivera's care. Charges/Coding Visit Charges Inpatient E&M: 03865 Subs Hosp L2
[2022-04-06 08:46] VITALS: BP 124/68; PULSE 79; RESP 16; TEMP 36.8; O2SAT 95
[2022-04-06] MEDS: Pantoprazole Sodium 40 MG Tablet PO (08:55)
[2022-04-06] MEDS: Calcium Carb/Vitamin D 1 TABLET Tablet 2 TABLET PO (08:55)
--- NOTE | 2022-04-06 09:31 | PCM.PN.REN ---
Subjective Subjective tolerated dialysis well last night. Still nonoliguric. Watch for renal recovery. Dialysis #2 today. Objective Data Objective Data Vital Signs: Vital Signs Temp Pulse Resp BP Pulse Ox 98.2 F 79 16 124/68 H 95 04/06/22 08:46 04/06/22 08:46 04/06/22 08:46 04/06/22 08:46 04/06/22 08:46 Oxygen Flow Rate (L/min) 2 Oxygen Delivery Method Room Air Weight: 95.5 kg Body Mass Index (BMI) 39.7 Intake & Output: Intake and Output for Last 24 Hours 04/04/22 04/05/22 04/06/22 23:59 23:59 23:59 Intake Total 1633.75 / 1633.75 200.25 / 200.25 Output Total 1200 / 1550 1999 / 1999 800 / 800 Balance 433.75 / 83.75 -1799.75 / -1799.75 -800 / -800 Lab / Micro Data Result Diagrams: 04/06/22 05:40 04/06/22 05:40 Labs: Laboratory Results - last 24 hr 04/05/22 05:25: WBC 5.9, RBC 2.95 L, Hgb 8.3 L, Hct 26.0 L, MCV 88.1, MCH 28.1, MCHC 31.9 L, RDW Std Deviation 47.2 H, RDW Coeff of Joe 14.6, Plt Count 182, MPV 10.9, Immature Gran % (Auto) 0.200, Neut % (Auto) 67.2, Lymph % (Auto) 20.6, [place] % (Auto) 8.8, Eos % (Auto) 2.7, Baso % (Auto) 0.5, Absolute Neuts (auto) 4.0, Absolute Lymphs (auto) 1.21, Nucleated RBC % 0 04/05/22 10:50: POC Glucose 112 H 04/05/22 15:28: POC Glucose 89 04/05/22 18:15: Hep Bs Antigen Non-Reactive 04/05/22 21:59: POC Glucose 153 H 04/06/22 05:40: Sodium 137, Potassium 3.9, Chloride 99, Carbon Dioxide 32.0, BUN 35 H, Creatinine 6.60 H, Estim Creat Clear Calc 6.16, Est GFR (MDRD) Af Amer 8 L, Est GFR (MDRD) Non-Af 7 L, BUN/Creatinine Ratio 5.3 L, Glucose 94, Calcium 8.2 L, Phosphorus 4.2, Albumin 2.7 L 04/06/22 05:40: WBC 5.8, RBC 3.18 L, Hgb 8.9 L, Hct 27.6 L, MCV 86.8, MCH 28.0, MCHC 32.2, RDW Std Deviation 46.7 H, RDW Coeff of Joe 14.6, Plt Count 174, MPV 10.7 04/06/22 06:35: POC Glucose 105 Radiography Diagnostic Testing: Radiology Impression Chest X-Ray 04/05/22 17:50 IMPRESSION: Right jugular dialysis catheter with tip overlying the cavoatrial junction. Left lower lobe atelectasis or infiltrate. Electronically Signed: Avila Niño MD ([place]) at 18:06 EDT , Physical Exam Const alert and oriented x3 Resp clear to auscultation bilaterally Cardio regular rate GI non-tender and non-distended Auscultation: normoactive bowel sounds Palpation: soft Extremity no clubbing, cyanosis or edema Assessment & Plan Assessment/Plan (1) BALDO (acute kidney injury): PLAN: dialysis last night without incident. Dialysis #2 today. Pt with dialysis schedule on MWF at [facility]. Will continue to monitor renal fxn at [facility] for recovery. Hold Korlym and metformin. Dialysis kidney bx as outpt if renal fxn does not recover but anticipate recovery. (2) Chronic kidney disease, stage 3a: PLAN: Underlying diabetic nephropathy with baseline creatinine 1.2 (3) Diabetes mellitus type 2 in obese: PLAN: On metformin discontinued on admission (4) [place] syndrome: PLAN: Plan: dc Korlym for now (5) Debility: PLAN: Chronic, PT/OT eval (6) Hypoglycemia: PLAN: adjust insulin as needed. Stop metformin (7) Morbid obesity: (8) Anemia: QUALIFIERS: Anemia type: due to chronic kidney disease Chronic kidney disease stage 3 subtype: stage 3a (GFR 45-59) PLAN: Hemoglobin stable
--- NOTE | 2022-04-06 09:36 | CASEMGMT ---
Addendum entered by Patricia Macario 04/06/22 15:26: TC to lab to verify when Hep B core and antibody will be resulted. Lab states these are send outs and the core takes 1-2 days and the other 1-3 days. TC to Goldie at [facility], left message on vm regarding this but that the antigen was non reactive and result has been faxed. Addendum entered by Patricia Macario 04/06/22 15:10: Spoke with PT who is recommending DME for pt. RN CM in to pt room, at bedside. Pt states she does not want a FWW, she does not feel that she needs it. Encouraged pt to take a script in case she changes her mind. Pt states she will not change her mind. states he is there to assist her if she needs it. Denies further needs. Addendum entered by Patricia Macario 04/06/22 12:31: TC to Goldie at [facility] to make aware pt dialysis will start tomorrow. Received schedule later, provided to pt and made her aware it will start tomorrow as well. Faxed Hep B surface antigen result, yesterday's dialysis flow sheet and orders at this time to [facility]. Addendum entered by Patricia Macario 04/06/22 12:19: Received vm from Goldie at [facility] that pt chair time is at noon on . Spoke with therapy who will evaluate pt next. Message sent to to see if dialysis will begin tomorrow or Tuesday. Updated hospitalist. Original Note: Spoke with , pt to be dialyzed today. Received vm from Goldie at [facility] admissions, tc back to her, left message with returned call information.
--- NOTE | 2022-04-06 09:54 | PCM.DC ---
Discharge Instructions Diet Discharge Diet: Renal Diet Activity Discharge Activity: Return to Normal Activity Follow Up Care Test Results: Test results from this visit will be discussed in further detail at your follow-up appointment, if applicable. Discharge Plan Admission Admit Date/Time: 04/02/22 15:20 Primary Reason for Your Visit: Acute kidney injury Attending Provider: Candace Ratliff Primary Care Provider: Crow Morel Chi Consulting Providers: Leticia Layne ; Domingo Ann ; Rosalba Haider ; Michael Newman ; Kapil Murray ; Melecio Bowles ; Amaris Avalos ; Deja Alicea Instructions Additional Instructions / Restrictions: Take note of changes to your medications. Continue to monitor your blood sugars closely. Watch out for hypoglycemia. Let your primary care doctor know if your blood sugars getting close to the 70s or the above 200s. Follow-up with dialysis as scheduled Follow-up with nephrology in dialysis. Follow-up with your primary care doctor within 1 week Discharge Orders/Prescriptions Prescriptions: Continued calcium carbonate-vitamin D3 600 mg-10 mcg (400 unit) tablet 2 tab PO DAILY RF: 0 atorvastatin 40 MG tablet 40 mg PO QHS RF: 0 pantoprazole 40 MG tablet,delayed release (DR/EC) 40 mg PO DAILY RF: 0 levothyroxine 25 mcg tablet 25 mcg PO DAILY RF: 0 Changed Tresiba FlexTouch U-200 200 unit/mL (3 mL) Insulin Pen 5 unit SUBCUT QHS 30 Days Qty: 1 RF: 0 Discontinued metformin 1,000 MG tablet 1,000 mg PO BIDCM RF: 0 pioglitazone 30 MG tablet 30 mg PO DAILY RF: 0 Korlym 300 mg Tablet 300 mg PO DAILY RF: 0 Referrals / Follow Up: Crow Morel Chi, MD [Primary Care Provider] - Disposition Disposition (needs filled in before D/C Order can be placed): Home, Self Care
[2022-04-06 11:35] LABS: Bedside Glucose 125 mg/dL (74-106)
--- NOTE | 2022-04-06 13:32 | DIALYSIS ---
HD x 3 hours on 3k bath No fluid removed, Pt tolerated tx well RIJ with good flows report to Nicol GONZALEZ
--- NOTE | 2022-04-06 13:40 | DS.PCM_ITS ---
Providers Date of Admission: 04/02/22 Date of Discharge: 04/06/22 Primary Care Physician: Dr. Crow Morel MD Consultations 04/02/22 15:19 Consult: Nephrology Routine Consulting Provider: Leticia Layne Reason for Consult: BALDO EMERGENT Consult: No Notified: Yes Date Notified: 04/02/22 Time Notified: 15:24 Method of Notification: ED Physician Initiated 04/05/22 08:37 Consult: General Surgery Routine Consulting Provider: [facility] Reason for Consult: dialysis catheter placement EMERGENT Consult: No Notified: Yes Date Notified: 04/05/22 Time Notified: 08:37 Method of Notification: Verbal Reason For Visit: ACUTE KIDNEY INJURY Diagnosis Discharge Diagnosis (1) BALDO (acute kidney injury): Status: Acute Code(s): N17.9 - Acute kidney failure, unspecified (2) Chronic kidney disease, stage 3a: Status: Chronic Code(s): N18.31 - Chronic kidney disease, stage 3a (3) Diabetes mellitus type 2 in obese: Status: Acute Code(s): E11.69 - Type 2 diabetes mellitus with other specified complication; E66.9 - Obesity, unspecified (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 - Laura's syndrome, unspecified (5) Debility: Status: Acute Code(s): R53.81 - Other malaise (6) Hypoglycemia: Status: Acute Code(s): E16.2 - Hypoglycemia, unspecified (7) Morbid obesity: Status: Acute Code(s): E66.01 - Morbid (severe) obesity due to excess calories (8) Anemia: Status: Chronic Code(s): D64.9 - Anemia, unspecified Qualifiers: Anemia type: due to chronic kidney disease Chronic kidney disease stage 3 subtype: stage 3a (GFR 45-59) Medications at Discharge Home Medications atorvastatin 40 mg PO QHS 01/06/20 pantoprazole 40 mg PO DAILY 09/10/20 calcium carbonate 600 mg-vitamin D3 10 mcg (400 unit) tablet 2 tab PO DAILY tab 03/08/22 levothyroxine 25 mcg PO DAILY 04/02/22 Hospital Course Operations None Procedures None Summary of Care Provided Minutes Spent on Discharge: 40 Hospital Course: 66-year-old female with past medical history of Bethpage syndrome, type II DM, CKD stage III who nausea and vomiting. Patient had baseline creatinine of 1.72-2.31. She comes in with abnormal blood work with Cr of 7.72. Patient was admitted, nephrology consulted, patient was started on IV fluids. Her insulins were put on hold. She was covered with insulin sliding scale. Patient was started on dialysis by nephrology. She had dialysis catheter placed on 04/05/2022. Patient received her second dialysis treatment here. She will be followed up by customer service professional in the outpatient. Hepatitis B antigen is negative. Physical Exam Narrative Physical exam: General: Alert, Oriented x3, Cooperative, No apparent distress HEENT: Atraumatic Oral: Moist Mucosa Neck: Supple Lungs: Clear to auscultation Cardiovascular: HS I+II, regular, no murmurs Abdomen: Bowel Sounds Present, Soft, Non Tender, wade catheter has clear urine Extremities: Bilateral pedal edema +1 Skin: No rashes, No breakdown Neurological: Grossly intact Psych/Mental Status: Appropriate Weight / BMI Weight Weight: 95.5 kg Body Mass Index (BMI) 39.7 ABG / Lab / Microbiology Data Result Diagrams: 04/06/22 05:40 04/06/22 05:40 Laboratory: Laboratory Results - last 24 hr 04/05/22 15:28: POC Glucose 89 04/05/22 18:15: Hep Bs Antigen Non-Reactive 04/05/22 21:59: POC Glucose 153 H 04/06/22 05:40: Sodium 137, Potassium 3.9, Chloride 99, Carbon Dioxide 32.0, BUN 35 H, Creatinine 6.60 H, Estim Creat Clear Calc 6.16, Est GFR (MDRD) Af Amer 8 L , Est GFR (MDRD) Non-Af 7 L, BUN/Creatinine Ratio 5.3 L, Glucose 94, Calcium 8.2 L, Phosphorus 4.2, Albumin 2.7 L 04/06/22 05:40: WBC 5.8, RBC 3.18 L, Hgb 8.9 L, Hct 27.6 L, MCV 86.8, MCH 28.0, MCHC 32.2, RDW Std Deviation 46.7 H, RDW Coeff of Joe 14.6, Plt Count 174, MPV 10.7 04/06/22 06:35: POC Glucose 105 04/06/22 11:33: POC Glucose 125 H Radiography Diagnostic Testing: Radiology Impression Chest X-Ray 04/05/22 17:50 IMPRESSION: Right jugular dialysis catheter with tip overlying the cavoatrial junction. Left lower lobe atelectasis or infiltrate. Electronically Signed: Avila Niño MD (Brooks) at 18:06 EDT Reading Location ID and State: [address] [place] [address] , Service support , D/C Instructions Discharge Diet: Renal Diet Meaningful Use Info Meaningful Use Diagnoses (Choose all that apply): None applicable Discharge Plan Admission Admit Date/Time: 04/02/22 15:20 Primary Reason for Your Visit: Acute kidney injury Attending Provider: Candace Ratliff Primary Care Provider: Crow Morel Chi Consulting Providers: Leticia Layne ; Domingo Ann ; Rosalba Haider ; Michael Newman ; Kapil Murray ; Melecio Bowles ; Amaris Avalos ; Deja Alicea Instructions Additional Instructions / Restrictions: Take note of changes to your medications. Continue to monitor your blood sugars closely. Watch out for hypoglycemia. Let your primary care doctor know if your blood sugars getting close to the 70s or the above 200s. Follow-up with dialysis as scheduled Follow-up with nephrology in dialysis. Follow-up with your primary care doctor within 1 week Discharge Orders/Prescriptions Prescriptions: Continued calcium carbonate-vitamin D3 600 mg-10 mcg (400 unit) tablet 2 tab PO DAILY RF: 0 atorvastatin 40 MG tablet 40 mg PO QHS RF: 0 pantoprazole 40 MG tablet,delayed release (DR/EC) 40 mg PO DAILY RF: 0 levothyroxine 25 mcg tablet 25 mcg PO DAILY RF: 0 Discontinued metformin 1,000 MG tablet 1,000 mg PO BIDCM RF: 0 pioglitazone 30 MG tablet 30 mg PO DAILY RF: 0 Tresiba FlexTouch U-200 200 unit/mL (3 mL) Insulin Pen 15 unit SUBCUT QHS RF: 0 Korlym 300 mg Tablet 300 mg PO DAILY RF: 0 Referrals / Follow Up: Crow Morel Chi, MD [Primary Care Provider] - 04/08/22 10:20 am Disposition Disposition (needs filled in before D/C Order can be placed): Home, Self Care Charges/Coding Visit Charges Inpatient E&M: 84250 Disch Hosp
[2022-04-06 14:50] VITALS: BP 151/69; PULSE 83; RESP 18; TEMP 36.7; O2SAT 94
--- NOTE | 2022-04-06 15:43 | PHA.DC.MR ---
Pharmacy Service has performed discharge medication reconciliation for this patient. The patient's discharge medication list was reviewed for discrepancies and discrepancies were resolved. Home Medications atorvastatin 40 mg PO QHS 01/06/20 pantoprazole 40 mg PO DAILY 09/10/20 calcium carbonate 600 mg-vitamin D3 10 mcg (400 unit) tablet 2 tab PO DAILY tab 03/08/22 levothyroxine 25 mcg PO DAILY 04/02/22
[2022-04-07 16:58] LABS: Hepatitis B Core Ab Total Negative (Negative)
--- NOTE | 2022-04-08 15:08 | CASEMGMT ---
Faxed Hep B core results to [facility] and corporate at this time.
== END 2022-04-06 16:07 | disposition home or self-care (01) | DRG 683 ==
LOC: ED 15:36 → MS3 16:00
PROVIDERS: Internal Medicine Nephrology; Physician Assistant; Surgery; Admitting Provider Internal Medicine; Emergency Provider Student in an Organized Health Care Education/Training Program; PCP Family Medicine Geriatric Medicine; Visit Provider Internal Medicine
PROC: 02HV33Z Insertion of Infusion Device into Superior Vena Cava, Percutaneous Approach (ICD-10-PCS; principal; 2022-04-05 15:45)
DX: N17.9 Acute kidney failure, unspecified (principal); E24.9 Cushing's syndrome, unspecified; N39.0 Urinary tract infection, site not specified; D63.1 Anemia in chronic kidney disease; E11.21 Type 2 diabetes mellitus with diabetic nephropathy; E11.649 Type 2 diabetes mellitus with hypoglycemia without coma; E11.22 Type 2 diabetes mellitus with diabetic chronic kidney disease; Z79.4 Long term (current) use of insulin; E66.01 Morbid (severe) obesity due to excess calories; N18.31 Chronic kidney disease, stage 3a; E78.5 Hyperlipidemia, unspecified; G47.33 Obstructive sleep apnea (adult) (pediatric); E03.9 Hypothyroidism, unspecified; Z68.39 Body mass index [BMI] 39.0-39.9, adult
CPT/HCPCS: 36415; 71045; 76770; 77001; 80048; 80069; 82040; 82570; 82962; 83735; 84100; 84300; 84443; 85025; 85027; 85610; 86704; 87086; 87088; 87340; 90937; 97162; 99284; J7030; A4216; C1750; G0257; J1940; J2405

== ENCOUNTER → 2022-04-02 | Outpatient (CLI) | payer MEDICARE, BC, SELFPAY ==
[2022-04-02 12:44] LABS: Absolute Lymphocyte Count 1.71 X10^3/uL (0.83-4.51); Absolute Neutrophil Count 4.7 X10^3/uL (2.0-7.7); Basophil# 0.02 X10^3/uL; Basophil% 0.3 % (0-1); Eosinophil# 0.11 X10^3/uL; Eosinophils% 1.6 % (0-5); Hematocrit 33.7 % (37-47); Hemoglobin 10.7 g/dL (12.0-15.0); Lymphocyte # 1.71 X10^3/ul (0.83-4.51); Lymphocyte % 24.4 % (19-41); Mean Corp Hgb Conc 31.8 g/dL (32-36); Mean Corpuscular Hgb 27.7 pg (27.0-32.0); Mean Corpuscular Volume 87.3 fL (81-99); Mean Platelet Vol. 10.8 fl (6.2-12.0); Monocyte# 0.45 X10^3/uL; Monocyte% 6.4 % (0-10); NRBC Flagged by Analyzer 0 % (0-5); Platelet Count 259 K/mm3 (150-450); RBC Distribution Width CV 14.8 % (11.6-14.6); RBC Distribution Width SD 47.4 fl (35.1-43.9); Red Blood Count 3.86 M/mm3 (4.2-5.4)
[2022-04-02 13:18] LABS: Anion Gap 10 (5-15); BUN 53 mg/dL (7-18); BUN/Creat Ratio 6.9 RATIO (10-20); Calcium,Total 9.3 mg/dL (8.5-10.1); Chloride 94 mmol/L (98-107); Creatinine, Serum 7.72 mg/dL (0.55-1.02); EST Glomerular Filtration Rate 6 mL/min (>60); Est Glom Filt Rate - Afr Amer 7 mL/min (>60); Glucose 132 mg/dL (74-106); Potassium 3.7 mmol/L (3.5-5.1); Sodium Level 137 mmol/L (136-145)
== END | disposition home or self-care (01) ==
PROVIDERS: PCP Family Medicine Geriatric Medicine; Referring Provider Family Medicine Geriatric Medicine; Visit Provider Family Medicine Geriatric Medicine
DX: N17.9 Acute kidney failure, unspecified (principal); N39.0 Urinary tract infection, site not specified
CPT/HCPCS: 36415; 80048; 85025; 87086; 87088

== ENCOUNTER → 2022-04-09 | Outpatient (CLI) | payer SELFPAY ==
[2022-04-09 14:12] LABS: Creatinine, Serum 3.16 mg/dL (0.55-1.02); EST Glomerular Filtration Rate 16 mL/min (>60); Est Glom Filt Rate - Afr Amer 19 mL/min (>60)
== END | disposition home or self-care (01) ==
LOC: LABSPEC 13:48
PROVIDERS: PCP Family Medicine Geriatric Medicine; Visit Provider Internal Medicine Nephrology
DX: N17.9 Acute kidney failure, unspecified (principal)
CPT/HCPCS: 82565

== ENCOUNTER → 2022-04-19 | Outpatient (CLI) | payer MEDICARE, BC, SELFPAY ==
[2022-04-19 12:40] LABS: Albumin, Serum 3.4 g/dL (3.2-5.0); BUN 11 mg/dL (7-18); BUN/Creat Ratio 7.9 RATIO (10-20); Calcium,Total 9.1 mg/dL (8.5-10.1); Chloride 95 mmol/L (98-107); Creatinine, Serum 1.39 mg/dL (0.55-1.02); EST Glomerular Filtration Rate 40 mL/min (>60); Est Glom Filt Rate - Afr Amer 48 mL/min (>60); Glucose 296 mg/dL (74-106); Phosphorus 2.3 mg/dL (2.5-4.9); Potassium 2.9 mmol/L (3.5-5.1); Sodium Level 139 mmol/L (136-145)
== END | disposition home or self-care (01) ==
LOC: POLAB3 11:09
PROVIDERS: PCP Internal Medicine Nephrology; Visit Provider Internal Medicine Nephrology
DX: N17.9 Acute kidney failure, unspecified (principal)
CPT/HCPCS: 36415; 80069

== ENCOUNTER → 2022-05-24 | Outpatient (CLI) | payer MEDICARE, BC, SELFPAY ==
[2022-05-24 17:19] LABS: Anion Gap 6 (5-15); BUN 17 mg/dL (7-18); BUN/Creat Ratio 10.5 RATIO (10-20); Calcium,Total 9.8 mg/dL (8.5-10.1); Chloride 91 mmol/L (98-107); Creatinine, Serum 1.62 mg/dL (0.55-1.02); EST Glomerular Filtration Rate 34 mL/min (>60); Est Glom Filt Rate - Afr Amer 41 mL/min (>60); Glucose 597 mg/dL (74-106); Potassium 4.9 mmol/L (3.5-5.1); Sodium Level 129 mmol/L (136-145); Thyroid Stim Hormone (TSH) 0.79 uIU/mL (0.358-3.74)
== END | disposition home or self-care (01) ==
LOC: LAB 13:56
PROVIDERS: PCP Family Medicine Geriatric Medicine; Visit Provider Family Medicine Geriatric Medicine
DX: E87.6 Hypokalemia (principal); E03.9 Hypothyroidism, unspecified
CPT/HCPCS: 36415; 80048; 84443

== ENCOUNTER → 2022-06-14 | Outpatient (CLI) | payer MEDICARE, BC, SELFPAY ==
[2022-06-14 12:42] LABS: Absolute Lymphocyte Count 1.62 X10^3/uL (0.83-4.51); Absolute Neutrophil Count 6.8 X10^3/uL (2.0-7.7); Basophil# 0.03 X10^3/uL; Basophil% 0.3 % (0-1); Eosinophil# 0.18 X10^3/uL; Hematocrit 37.1 % (37-47); Hemoglobin 11.9 g/dL (12.0-15.0); Lymphocyte # 1.62 X10^3/ul (0.83-4.51); Lymphocyte % 17.6 % (19-41); Mean Corp Hgb Conc 32.1 g/dL (32-36); Mean Corpuscular Hgb 28.5 pg (27.0-32.0); Mean Platelet Vol. 11.2 fl (6.2-12.0); Monocyte# 0.51 X10^3/uL; Monocyte% 5.5 % (0-10); NRBC Flagged by Analyzer 0 % (0-5); Neutrophil # 6.84 X10^3/uL (2.7-7.7); Neutrophil % 74.4 % (47-70); Platelet Count 277 K/mm3 (150-450); RBC Distribution Width CV 14.1 % (11.6-14.6); RBC Distribution Width SD 45.9 fl (35.1-43.9); Red Blood Count 4.17 M/mm3 (4.2-5.4); White Blood Count 9.2 K/mm3 (4.4-11.0)
[2022-06-14 12:54] LABS: Vitamin D,25 Hydroxy 32.9 ng/mL
[2022-06-14 13:12] LABS: ALB/GLOB Ratio 0.8 RATIO (0.9-2.4); AST(SGOT) 17 U/L (15-37); Alanine Aminotransfer ALT/SGPT 15 U/L (13-56); Albumin, Serum 3.2 g/dL (3.2-5.0); Alkaline Phosphatase 98 U/L (45-117); Anion Gap 7 (5-15); BUN 17 mg/dL (7-18); BUN/Creat Ratio 10.6 RATIO (10-20); Calcium,Total 9.6 mg/dL (8.5-10.1); Chloride 97 mmol/L (98-107); EST Glomerular Filtration Rate 34 mL/min (>60); Est Glom Filt Rate - Afr Amer 41 mL/min (>60); Globulin 3.9 g/dL (2.2-4.2); Glucose 177 mg/dL (74-106); Protein, Total 7.1 g/dL (6.4-8.2); Sodium Level 138 mmol/L (136-145); Thyroid Stim Hormone (TSH) 2.32 uIU/mL (0.358-3.74)
== END | disposition home or self-care (01) ==
LOC: POLAB3 09:12
PROVIDERS: PCP Internal Medicine Nephrology; Visit Provider Family Medicine Geriatric Medicine
DX: E11.65 Type 2 diabetes mellitus with hyperglycemia (principal); E55.9 Vitamin D deficiency, unspecified; R53.83 Other fatigue
CPT/HCPCS: 36415; 80053; 82306; 84443; 85025

== ENCOUNTER → 2022-06-16 | Outpatient (CLI) | payer MEDICARE, BC, SELFPAY ==
[2022-06-16 18:00] LABS: M R Staph aureus DNA By PCR Negative (Negative); Probe Check PASS; Specimen Processing Control PASS; Staph aureus DNA By PCR POSITIVE (Negative)
== END | disposition home or self-care (01) ==
LOC: POLAB3 14:52 → LABSPEC 14:54
PROVIDERS: PCP Internal Medicine Nephrology; Visit Provider Family Medicine Geriatric Medicine
DX: L03.113 Cellulitis of right upper limb (principal)
CPT/HCPCS: 87086; 87640

== ENCOUNTER → 2022-07-21 | Outpatient (CLI) | payer MEDICARE, BC, SELFPAY ==
[2022-07-21 11:46] LABS: Albumin, Serum 3.4 g/dL (3.2-5.0); BUN 19 mg/dL (7-18); BUN/Creat Ratio 11.9 RATIO (10-20); Calcium,Total 9.3 mg/dL (8.5-10.1); Chloride 96 mmol/L (98-107); EST Glomerular Filtration Rate 34 mL/min (>60); Est Glom Filt Rate - Afr Amer 41 mL/min (>60); Glucose 224 mg/dL (74-106); Potassium 3.9 mmol/L (3.5-5.1); Sodium Level 136 mmol/L (136-145)
== END | disposition home or self-care (01) ==
LOC: LAB 09:50
PROVIDERS: PCP Internal Medicine Nephrology; Referring Provider Internal Medicine Nephrology; Visit Provider Internal Medicine Nephrology
DX: N17.9 Acute kidney failure, unspecified (principal)
CPT/HCPCS: 36415; 80069

== ENCOUNTER → 2022-08-26 | Outpatient (CLI) | payer MEDICARE, BC, SELFPAY ==
[2022-08-26 12:28] LABS: Absolute Lymphocyte Count 1.77 X10^3/uL (0.83-4.51); Absolute Neutrophil Count 5.1 X10^3/uL (2.0-7.7); Basophil# 0.03 X10^3/uL; Basophil% 0.4 % (0-1); Eosinophil# 0.12 X10^3/uL; Eosinophils% 1.6 % (0-5); Hematocrit 35.7 % (37-47); Hemoglobin 12.2 g/dL (12.0-15.0); Lymphocyte # 1.77 X10^3/ul (0.83-4.51); Lymphocyte % 23.4 % (19-41); Mean Corp Hgb Conc 34.2 g/dL (32-36); Mean Corpuscular Hgb 28.7 pg (27.0-32.0); Mean Platelet Vol. 10.6 fl (6.2-12.0); Monocyte# 0.47 X10^3/uL; Monocyte% 6.2 % (0-10); NRBC Flagged by Analyzer 0 % (0-5); Neutrophil # 5.14 X10^3/uL (2.7-7.7); Neutrophil % 68.1 % (47-70); Platelet Count 284 K/mm3 (150-450); RBC Distribution Width CV 14.5 % (11.6-14.6); RBC Distribution Width SD 43.9 fl (35.1-43.9); Red Blood Count 4.25 M/mm3 (4.2-5.4); White Blood Count 7.6 K/mm3 (4.4-11.0)
[2022-08-26 13:18] LABS: ALB/GLOB Ratio 0.8 RATIO (0.9-2.4); AST(SGOT) 27 U/L (15-37); Alanine Aminotransfer ALT/SGPT 17 U/L (13-56); Alkaline Phosphatase 101 U/L (45-117); Anion Gap 8 (5-15); BUN 12 mg/dL (7-18); BUN/Creat Ratio 7.2 RATIO (10-20); Calcium,Total 9.4 mg/dL (8.5-10.1); Chloride 87 mmol/L (98-107); Creatinine, Serum 1.66 mg/dL (0.55-1.02); EST Glomerular Filtration Rate 33 mL/min (>60); Est Glom Filt Rate - Afr Amer 39 mL/min (>60); Globulin 3.7 g/dL (2.2-4.2); Glucose 255 mg/dL (74-106); Potassium 2.3 mmol/L (3.5-5.1); Protein, Total 6.7 g/dL (6.4-8.2); Sodium Level 138 mmol/L (136-145)
--- NOTE | 2022-08-26 13:31 | RAD_ITS ---
EXAM: XR ABDOMEN, 1 VIEW CLINICAL INDICATION: ABD PAIN TECHNIQUE: Frontal supine view of the abdomen/pelvis. This report was created using [employer] report generation technology. COMPARISON: None. FINDINGS: LOWER THORAX: No acute pathology. GASTROINTESTINAL TRACT: Some prominent air-filled small bowel in the right abdomen without dilated bowel loops. No bowel obstruction. ORGANS: Cholecystectomy clips. No organomegaly. No abnormal calcifications. BONES/JOINTS: No acute pathology. SOFT TISSUES: No acute pathology. RAD/Abdomen Single View IMPRESSION: Some prominent air-filled small bowel in the right abdomen without dilated bowel loops. Findings may indicate an ileus. Follow-up as clinically indicated. Electronically Signed: Lionel Sewell MD at 0:12 EDT ,
--- NOTE | 2022-08-26 13:34 | RAD_ITS ---
EXAM: XR CHEST, 2 VIEWS CLINICAL INDICATION: COUGH TECHNIQUE: Frontal and lateral views of the chest. This report was created using [employer] report generation technology. COMPARISON: 04/05/2022 FINDINGS: LUNGS AND PLEURAL SPACES: Unremarkable. No consolidation or edema. No pneumothorax. No effusion. HEART: Unremarkable. Cardiac silhouette not enlarged. MEDIASTINUM: Central airways and mediastinal contour are unremarkable. BONES/JOINTS: Degenerative changes of the spine. SOFT TISSUES: Unremarkable. RAD/Chest PA and Lateral IMPRESSION: No acute findings in the chest. Electronically Signed: Lionel Sewell MD at 0:11 EDT ,
== END | disposition home or self-care (01) ==
PROVIDERS: PCP Internal Medicine Nephrology; Referring Provider Family Medicine Geriatric Medicine; Visit Provider Family Medicine Geriatric Medicine
DX: R10.9 Unspecified abdominal pain (principal); R68.83 Chills (without fever); R05.9 Cough, unspecified
CPT/HCPCS: 36415; 71046; 74018; 80053; 85025; 87086; 87088; 87635; 87804; 87807; C9803; U0003; U0005

== ENCOUNTER → 2022-08-27 | Outpatient (CLI) | payer MEDICARE, BC, SELFPAY ==
[2022-08-27 13:25] LABS: Anion Gap 8 (5-15); BUN 10 mg/dL (7-18); BUN/Creat Ratio 5.4 RATIO (10-20); Calcium,Total 9.2 mg/dL (8.5-10.1); Chloride 87 mmol/L (98-107); Creatinine, Serum 1.85 mg/dL (0.55-1.02); EST Glomerular Filtration Rate 29 mL/min (>60); Est Glom Filt Rate - Afr Amer 35 mL/min (>60); Glucose 320 mg/dL (74-106); Potassium 2.5 mmol/L (3.5-5.1); Sodium Level 137 mmol/L (136-145)
== END | disposition home or self-care (01) ==
LOC: LAB 11:03
PROVIDERS: PCP Family Medicine Geriatric Medicine; Visit Provider Family Medicine Geriatric Medicine
DX: E87.6 Hypokalemia (principal)
CPT/HCPCS: 36415; 80048

== ENCOUNTER → 2022-08-31 | Outpatient (CLI) | payer MEDICARE, BC, SELFPAY ==
[2022-08-31 12:02] LABS: Absolute Lymphocyte Count 1.43 X10^3/uL (0.83-4.51); Absolute Neutrophil Count 3.4 X10^3/uL (2.0-7.7); Basophil# 0.03 X10^3/uL; Basophil% 0.5 % (0-1); Eosinophil# 0.25 X10^3/uL; Eosinophils% 4.5 % (0-5); Hematocrit 39.7 % (37-47); Hemoglobin 12.9 g/dL (12.0-15.0); Lymphocyte # 1.43 X10^3/ul (0.83-4.51); Lymphocyte % 25.8 % (19-41); Mean Corp Hgb Conc 32.5 g/dL (32-36); Mean Corpuscular Volume 86.3 fL (81-99); Mean Platelet Vol. 10.9 fl (6.2-12.0); Monocyte# 0.44 X10^3/uL; Monocyte% 7.9 % (0-10); NRBC Flagged by Analyzer 0 % (0-5); Neutrophil # 3.38 X10^3/uL (2.7-7.7); Neutrophil % 61.1 % (47-70); Platelet Count 294 K/mm3 (150-450); RBC Distribution Width CV 14.8 % (11.6-14.6); RBC Distribution Width SD 46.5 fl (35.1-43.9); White Blood Count 5.5 K/mm3 (4.4-11.0)
[2022-08-31 12:43] LABS: Anion Gap 7 (5-15); BUN 12 mg/dL (7-18); BUN/Creat Ratio 8.2 RATIO (10-20); Calcium,Total 9.5 mg/dL (8.5-10.1); Chloride 96 mmol/L (98-107); Creatinine, Serum 1.46 mg/dL (0.55-1.02); EST Glomerular Filtration Rate 38 mL/min (>60); Est Glom Filt Rate - Afr Amer 46 mL/min (>60); Ferritin 209 ng/mL (8-252); Glucose 290 mg/dL (74-106); Iron 73 ug/dL (50-170); Iron Binding Capacity,Total 303 ug/dL (250-450); PERCENT IRON SATURATION 24.1 % (15.0-55.0); Potassium 3.6 mmol/L (3.5-5.1); Sodium Level 139 mmol/L (136-145); Vitamin B12 502 pg/mL (211-911)
== END | disposition home or self-care (01) ==
PROVIDERS: PCP Family Medicine Geriatric Medicine; Visit Provider Internal Medicine Hematology & Oncology
DX: E87.6 Hypokalemia (principal); N18.31 Chronic kidney disease, stage 3a; D63.1 Anemia in chronic kidney disease
CPT/HCPCS: 36415; 80048; 82607; 82728; 83540; 83550; 85025

== ENCOUNTER → 2022-09-10 | Outpatient (CLI) | payer MEDICARE, BC, SELFPAY ==
--- NOTE | 2022-09-10 14:12 | BI_ITS ---
MAMMOGRAPHY - BILATERAL SCREENING REASON FOR EXAM: Female, 67 years old. Routine annual screening examination. PERTINENT HISTORY: Non-contributory. TECHNIQUE: Digital bilateral breast joseluis (3D mammographic acquisition) in the CC and MLO projections. 2-D mediolateral oblique (MLO) and craniocaudad (CC) views of both breasts were obtained. CAD: Full Field Digital Mammography with Computer Added Detection was performed. COMPARISON: Comparison is made with prior study dated 10/08/2020 and 07/05/2019. FINDINGS: Breast Composition: The breasts are heterogeneously dense, which may obscure small masses. There are no dominant masses or suspicious calcifications. Stable scattered bilateral calcifications. Stable small benign-appearing bilateral axillary lymph nodes. No other significant abnormalities are identified. There has been no significant change since the prior study. BI/SCRN MAMM (CAD)W/JOSELUIS BILAT IMPRESSION: Stable bilateral screening mammogram. Yearly follow-up mammogram recommended. (A) ASSESSMENT CATEGORY: BIRADS Category 2: Benign. A letter regarding these results will be sent to the patient by the facility within 30 days. Approximately 10% of breast cancers are not detected by mammography. A normal mammogram should not delay biopsy of a clinically suspicious abnormality. [id number] Electronically Signed: Lee Montenegro MD at 15:03 EDT ,
== END | disposition home or self-care (01) ==
LOC: OPBI 14:11
PROVIDERS: PCP Family Medicine Geriatric Medicine; Referring Provider Internal Medicine Hematology & Oncology; Visit Provider Internal Medicine Hematology & Oncology
DX: Z12.31 Encounter for screening mammogram for malignant neoplasm of breast (principal)
CPT/HCPCS: 77063; 77067

== ENCOUNTER → 2022-09-22 | Outpatient (CLI) | payer MEDICARE, BC, SELFPAY ==
[2022-09-22 12:47] LABS: Absolute Lymphocyte Count 1.82 X10^3/uL (0.83-4.51); Basophil# 0.03 X10^3/uL; Basophil% 0.3 % (0-1); Eosinophils% 3.5 % (0-5); Hematocrit 39.5 % (37-47); Hemoglobin 12.6 g/dL (12.0-15.0); Lymphocyte # 1.82 X10^3/ul (0.83-4.51); Mean Corp Hgb Conc 31.9 g/dL (32-36); Mean Corpuscular Hgb 28.6 pg (27.0-32.0); Mean Corpuscular Volume 89.6 fL (81-99); Mean Platelet Vol. 11.4 fl (6.2-12.0); Monocyte# 0.49 X10^3/uL; Monocyte% 5.7 % (0-10); NRBC Flagged by Analyzer 0 % (0-5); Neutrophil # 5.99 X10^3/uL (2.7-7.7); Platelet Count 276 K/mm3 (150-450); RBC Distribution Width CV 14.6 % (11.6-14.6); RBC Distribution Width SD 47.8 fl (35.1-43.9); Red Blood Count 4.41 M/mm3 (4.2-5.4); White Blood Count 8.7 K/mm3 (4.4-11.0)
[2022-09-22 13:05] LABS: ALB/GLOB Ratio 0.8 RATIO (0.9-2.4); AST(SGOT) 15 U/L (15-37); Alanine Aminotransfer ALT/SGPT 18 U/L (13-56); Albumin, Serum 3.1 g/dL (3.2-5.0); Alkaline Phosphatase 95 U/L (45-117); Anion Gap 5 (5-15); BUN 9 mg/dL (7-18); BUN/Creat Ratio 6.6 RATIO (10-20); Calcium,Total 9.1 mg/dL (8.5-10.1); Chloride 96 mmol/L (98-107); Creatinine, Serum 1.37 mg/dL (0.55-1.02); EST Glomerular Filtration Rate 41 mL/min (>60); Est Glom Filt Rate - Afr Amer 49 mL/min (>60); Glucose 216 mg/dL (74-106); Potassium 3.9 mmol/L (3.5-5.1); Protein, Total 7.1 g/dL (6.4-8.2); Sodium Level 136 mmol/L (136-145); Thyroid Stim Hormone (TSH) 8.02 uIU/mL (0.358-3.74)
[2022-09-22 13:16] LABS: Vitamin D,25 Hydroxy 32.9 ng/mL
== END | disposition home or self-care (01) ==
LOC: POLAB3 10:30
PROVIDERS: PCP Family Medicine Geriatric Medicine; Visit Provider Family Medicine Geriatric Medicine
DX: E11.65 Type 2 diabetes mellitus with hyperglycemia (principal); R53.83 Other fatigue; E55.9 Vitamin D deficiency, unspecified
CPT/HCPCS: 36415; 80053; 82306; 84443; 85025

== ENCOUNTER 2022-10-25 19:29 | Inpatient (IN) | payer MEDICARE, BC, SELFPAY ==
[2022-10-25 19:30] VITALS: BP 132/68; PULSE 89; RESP 18; TEMP 36.6; O2SAT 96; BMI 34.9
--- NOTE | 2022-10-25 19:58 | EDS_ITS ---
HPI HPI - GI History of Present Illness Chief Complaint: Nausea/Vomiting/Diarrhea Informant: patient and spouse/S.O. Abdominal Pain/Flank Pain Onset: Days Context: Gradual Onset Timing: Continuous Quality: Aching and Cramping Location: - (Periumbilical and epigastric.) Current Severity: Mild Maximum Severity: Mild Worsened by: Nothing Relieved by: Nothing Nausea/Vomiting/Emesis GI Symptom: Positive for Nausea and Vomiting Onset: Days Severity: Moderate Diarrhea/Melena/Hematochezia GI Symptom: Positive for Diarrhea; Negative for Melena or Hematochezia Onset: Days Stool Quality: Positive for Loose Severity: Moderate Associated Symptoms Associated Symptoms: Negative for Dysuria, Frequency, Hematuria or Urgency Narrative Narrative: 67-year-old female history of chronic kidney disease, diabetes, pancreatitis with a prior appendectomy, cholecystectomy and partial hysterectomy. States her granddaughters recently had a GI virus. She became ill after she was in contact with them. Since Tuesday she has had nausea vomiting and diarrhea. Mild periumbilical and epigastric discomfort. No melena. No hematemesis. No fever. No dysuria. Prior similar symptoms: Yes Recent Illness/Hospitalization: No PFSH PFS Medical History BALDO (acute kidney injury) Anemia Anemia of chronic renal failure, stage 3 (moderate) Back problem Bone fracture Cataracts, bilateral Diabetes type 2, controlled Major depressive disorder, recurrent episode Obstructive sleep apnea on CPAP Pancreatitis Vision problems Wound of skin Home Medications atorvastatin 40 mg tablet 40 mg PO QHS Cholesterol 01/06/20 [History Last Taken 03/31/22] pantoprazole 40 mg tablet,delayed release 40 mg PO DAILY Gerd 09/10/20 [History Last Taken 04/01/22] calcium carbonate 600 mg-vitamin D3 10 mcg (400 unit) tablet 2 tab PO DAILY 03/08/22 [History Last Taken 04/01/22] levothyroxine 25 mcg tablet 25 mcg PO DAILY THYROID 04/02/22 [History Last Taken Unknown] furosemide 40 mg tablet 40 mg PO DAILY 07/16/22 [History Last Taken Unknown] insulin degludec 200 unit/mL (3 mL) subcutaneous pen (Tresiba FlexTouch U-200 insulin) 25 unit subcut BID 07/16/22 [History Last Taken Unknown] insulin lispro 100 unit/mL subcutaneous pen (Humalog KwikPen (U-100) Insulin) 17 unit subcut TIDWMEAL 07/16/22 [History Last Taken Unknown] mifepristone 300 mg tablet (Korlym) 300 mg PO DAILY 07/16/22 [History Last Taken Unknown] potassium chloride 20 mEq tablet,extended release 120 meq PO DAILY 09/06/22 [History Last Taken Unknown] Allergy/AdvReac Type Severity Reaction Status Date / Time adhesive tape AdvReac Intermediate Rash Verified 10/25/22 19:33 codeine AdvReac Intermediate Dizziness Verified 10/25/22 19:33 Family History Mother Diabetes Father Heart disease Hypertension Surgical History Hx of appendectomy Hx of cataract surgery Hx of cholecystectomy S/P hemodialysis catheter insertion S/P partial hysterectomy Status post ORIF of fracture of ankle Social History household members: spouse Smoking Status: Never smoker second hand exposure: No alcohol intake: never substance use type: does not use salas/taoism: Rastafari seatbelt use: always do you feel safe at home: Yes ROS ROS ED ROS Narrative Nausea, vomiting, diarrhea and abdominal discomfort. Review of Systems ROS Unobtainable: Denies due to encephalopathy Constitutional Constitutional ED: Denies chills or fever(s) ENT ENT ED: Denies ear pain or rhinorrhea Cardiovascular Cardiovascular: Denies palpitations Respiratory/Chest Respiratory/Chest: Denies cough or dyspnea Gastrointestinal Gastrointestinal: Reports abdominal pain, diarrhea, nausea and vomiting; Denies constipation or melena Genitourinary Genitourinary ED: Denies dysuria or hematuria Musculoskeletal Musculoskeletal: Denies arthralgias Integumentary Denies abscess Neurologic Neurologic: Denies headache(s) Psychiatric Psychiatric: Denies anxiety Endocrine Endocrinology: Denies polydipsia Hematologic/Lymphatic Hematologic/Lymphatic: Denies easy bleeding Allergic/Immunologic Allergic/Immunologic ED: Denies mouth swelling or tongue swelling EXAM Physical Exam Narrative Exam Narrative: 37-year-old female vital signs stable afebrile. Pulse ox 96% on room air no signs of pox. H EENT exam mild diabetes mellitus. Neck nontender. No lymphadenopathy. Lungs clear to auscultation. Heart regular rhythm no murmur. Abdomen soft nondistended normal bowel sounds no peritoneal signs. Mildly tender in epigastric to periumbilical region. No hernia or mass. No signs of bowel obstruction. Right upper and right lower quadrants are unremarkable. Moving all 4 extremities. Nontender no edema. Neurologically she is awake alert with no focal motor deficits. Clinically she will states she did not feel good and possibly dehydrated but she does not look septic or toxic. Const Vital Signs: 10/25/22 19:30 Temperature 97.9 F Temperature Source Temporal Pulse Rate 89 Respiratory Rate 18 Blood Pressure 132/68 H Blood Pressure Mean 89 Pulse Ox 96 Oxygen Delivery Method Room Air Positive well nourished, well developed and obese; Negative for cachectic, contractures or unkempt General Appearance ED: well developed and NAD; Negative for unkempt, cachectic, contractures or pallor Nutritional Appearance: obese; Negative for cachectic HEENT Reports dry mucous membranes; Denies moist mucous membranes normocephalic and atraumatic; Negative for trauma or tenderness Mouth ED: Yes dry mucous membranes Mouth: dry mucous membranes Eyes PERRL and EOMs intact bilaterally General Eye ED: Negative for pale conjunctiva or scleral icterus Neck no lymphadenopathy, supple and no JVD General: Negative for tenderness Resp normal respiratory effort and clear to auscultation bilaterally Effort and Inspection: Negative for respiratory distress Auscultation: Negative for rales, rhonchi or wheezes Cardio regular rate, regular rhythm, S1 normal heart sound, S2 normal heart sound and no murmurs Rate: Negative for bradycardia Rhythm: Negative for abnormal rhythm GI non-distended and no masses; Negative for non-tender Inspection: Negative for abdominal distention Auscultation: normoactive bowel sounds Palpation: soft and tender; Negative for guarding, rigid, hepatomegaly, splenomegaly, hernia, mass, pulsatile mass or rebound tenderness present Back/Spine no CVA tenderness General Back: Negative for CVA tenderness Cervical Spine: Negative for cervical spine tenderness Thoracic Spine / Upper Back: Negative for thoracic spinal tenderness Lumbar Spine / Lower Back: Negative for lumbar spinal tenderness Coccyx: Negative for other Extremity full ROM General Extremety ED: Negative for edema or tenderness General Extremity: Negative for edema Neuro CN's II-XII intact bilaterally and moves all extremities Sensorium / Orientation: alert Motor Exam: strength 5/5 throughout; Negative for general weakness Psych mental status grossly normal and thought process normal Appearance: Negative for unkempt Attitude: No agitated Mood & Affect: Negative for depressed, anxious or tearful Skin no wounds General Skin Exam: Negative for jaundice or pallor Lesions: no lesions Rashes: no rashes Trauma: Negative for abrasion Nails: Negative for discolored MDM MDM MDM Narrative Medical decision making narrative: 67-year-old diabetic female with chronic kidney disease with nausea vomiting diarrhea. Family recently had viral gastroenteritis. Most likely that is what she has. She will have screening labs. Treated with IV fluids and Zofran and p.o. fluid challenge. Repeat exam at 10:13 PM patient still complaining of nausea she has had 2 doses of Zofran. Patient will be given Reglan. CT abdomen be obtained. Currently she is unable to keep down p.o. fluids. She will also be given potassium IV. Recorded the patient's weakness, intractable nausea and C-spine pelvis pain hypokalemia I spoke to hospitalist she will be observed overnight for further therapeutic intervention. Lab Data Attestation: I reviewed the patient's lab results. Lab results narrative: CBC no white count of 7. H&H 12 and 37. Electrolytes show a potassium of 2.7 consistent with her diarrhea. Gap is 13. BUN of 20 creatinine 1.1. Has a history of chronic kidney disease. Glucose 135. Liver enzymes unremarkable. Lipase normal at 65. Labs: Laboratory Results - last 24 hr 10/25/22 10/25/22 20:20 20:20 WBC 7.6 RBC 4.42 Hgb 12.6 Hct 37.9 MCV 85.7 MCH 28.5 MCHC 33.2 RDW Std Deviation 43.6 RDW Coeff of Joe 13.9 Plt Count 227 MPV 11.2 Immature Gran % (Auto) 0.400 Neut % (Auto) 72.3 H Lymph % (Auto) 18.4 L [place] % (Auto) 8.1 Eos % (Auto) 0.5 Baso % (Auto) 0.3 Absolute Neuts (auto) 5.5 Absolute Lymphs (auto) 1.39 Nucleated RBC % 0 Sodium 138 Potassium 2.7 L* Chloride 94 L Carbon Dioxide 31.0 Anion Gap 13 BUN 20 H Creatinine 1.14 H Estim Creat Clear Calc 35.15 Est GFR (MDRD) Af Amer 61 Est GFR (MDRD) Non-Af 50 L BUN/Creatinine Ratio 17.5 Glucose 135 H Calcium 9.4 Total Bilirubin 1.20 H AST 25 ALT 18 Alkaline Phosphatase 71 Total Protein 7.3 Albumin 3.2 Globulin 4.1 Albumin/Globulin Ratio 0.8 L Lipase 65 L Discharge Plan Dx/Rx/DC Orders Clinical Impression: Viral gastroenteritis, Intractable nausea and vomiting, History of diabetes mellitus, History of chronic kidney disease, Acute hypokalemia Disposition Disposition: Acute Care Hospital [facility]
[2022-10-25] MEDS: Ondansetron 4 MG/2 ML Vial IV ×2 (20:19→22:10)
[2022-10-25] MEDS: 0.9% Normal Saline 1,000 ML 1000 ML IV (20:19)
[2022-10-25 20:34] LABS: Absolute Lymphocyte Count 1.39 X10^3/uL (0.83-4.51); Absolute Neutrophil Count 5.5 X10^3/uL (2.0-7.7); Basophil# 0.02 X10^3/uL; Basophil% 0.3 % (0-1); Eosinophil# 0.04 X10^3/uL; Eosinophils% 0.5 % (0-5); Hematocrit 37.9 % (37-47); Hemoglobin 12.6 g/dL (12.0-15.0); Lymphocyte # 1.39 X10^3/ul (0.83-4.51); Lymphocyte % 18.4 % (19-41); Mean Corp Hgb Conc 33.2 g/dL (32-36); Mean Corpuscular Hgb 28.5 pg (27.0-32.0); Mean Corpuscular Volume 85.7 fL (81-99); Mean Platelet Vol. 11.2 fl (6.2-12.0); Monocyte# 0.61 X10^3/uL; Monocyte% 8.1 % (0-10); NRBC Flagged by Analyzer 0 % (0-5); Neutrophil # 5.47 X10^3/uL (2.7-7.7); Neutrophil % 72.3 % (47-70); Platelet Count 227 K/mm3 (150-450); RBC Distribution Width CV 13.9 % (11.6-14.6); RBC Distribution Width SD 43.6 fl (35.1-43.9); Red Blood Count 4.42 M/mm3 (4.2-5.4); White Blood Count 7.6 K/mm3 (4.4-11.0)
[2022-10-25 21:25] LABS: ALB/GLOB Ratio 0.8 RATIO (0.9-2.4); AST(SGOT) 25 U/L (15-37); Alanine Aminotransfer ALT/SGPT 18 U/L (13-56); Albumin, Serum 3.2 g/dL (3.2-5.0); Alkaline Phosphatase 71 U/L (45-117); Anion Gap 13 (5-15); BUN 20 mg/dL (7-18); BUN/Creat Ratio 17.5 RATIO (10-20); Calcium,Total 9.4 mg/dL (8.5-10.1); Chloride 94 mmol/L (98-107); Creatinine, Serum 1.14 mg/dL (0.55-1.02); EST Glomerular Filtration Rate 50 mL/min (>60); Est Glom Filt Rate - Afr Amer 61 mL/min (>60); Estimated Creatinine Clearance 35.15 ml/min; Globulin 4.1 g/dL (2.2-4.2); Glucose 135 mg/dL (74-106); Lipase 65 U/L (73-393); Potassium 2.7 mmol/L (3.5-5.1); Protein, Total 7.3 g/dL (6.4-8.2); Sodium Level 138 mmol/L (136-145)
--- NOTE | 2022-10-25 22:18 | CT_ITS ---
INDICATION: Abdominal pain with nausea vomiting and diarrhea EXAMINATION: CT ABDOMEN AND PELVIS WITH CONTRAST - CT Abdomen And Pelvis W/ Contrast Injection TECHNIQUE: Helically acquired images were obtained of the abdomen and pelvis following IV contrast. A radiation dose optimization technique was used for this scan. IV Contrast dosage and agent: 100 cc Isovue-370 Oral contrast: None. COMPARISON: 01/06/2020 FINDINGS: LOWER CHEST: Lung bases are clear. No cardiomegaly or pericardial effusion. Mild circumferential thickening of the distal esophagus, decreased from the prior study. LIVER: Homogeneous. No focal mass. GALLBLADDER AND BILIARY TREE: Cholecystectomy. Stable intra- and extrahepatic biliary ductal dilation. PANCREAS: No focal cystic or solid mass. SPLEEN: Normal size without focal cystic or solid mass. ADRENAL GLANDS: No nodules. KIDNEYS AND URETERS: Normal renal size and position. No hydronephrosis. PERITONEUM: No ascites or free air. BOWEL: Normal appendix. No stomach or bowel distension. Circumferential colonic wall thickening of the ascending and proximal transverse colon with minimal adjacent stranding. LYMPH NODES: No enlarged mesenteric or retroperitoneal lymph nodes. VESSELS: Aorta is non-dilated. URINARY BLADDER: Unremarkable. REPRODUCTIVE ORGANS: Uterus absent. BONES: No acute or aggressive abnormality. CT/Abdomen/Pelvis W IV Cont ONLY IMPRESSION: Colitis of the ascending and proximal transverse colon. Circumferential thickening of the distal esophageal wall, possible esophagitis or GERD. Findings have decreased partially from the prior study. Electronically Signed: Wiley Montez MD at 23:19 EST ,
[2022-10-25] MEDS: Metoclopramide 10 MG/2 ML Vial 5 MG IV (22:47)
[2022-10-25] MEDS: Potassium Chloride 10mEq/100mL 10 MEQ/100 ML IV.SOLN. 100 MEQ IV BOLUS ×2 (22:48→23:51)
[2022-10-25 23:00] VITALS: BP 156/55; PULSE 92; RESP 18; O2SAT 95
--- NOTE | 2022-10-25 23:18 | HP.PCM_ITS ---
[facility] - General General Date of Admission: 10/25/22 Date of Service: 10/25/22 Chief Complaint: Nausea, vomiting, diarrhea HPI Narrative LA DORMAN, is a 67 F who presents to the emergency room with chief complaint of nausea, vomiting and diarrhea. Onset of symptoms began Tuesday and have progressively become worse. Patient now feels weak and has poor appetite, and has been unable to keep liquids down. She states many of her grandchildren also had similar symptoms last week. She denies any fevers or chills but does complain of generalized abdominal pain. She does have past surgical history of cholecystectomy and CT scan of abdomen was pending at the time of my evaluation. Patient will be admitted for observation to general medical floor for treatment of suspected gastroenteritis. [facility] Medical History BALDO (acute kidney injury) Anemia Anemia of chronic renal failure, stage 3 (moderate) Back problem Bone fracture Cataracts, bilateral Diabetes type 2, controlled Major depressive disorder, recurrent episode Obstructive sleep apnea on CPAP Pancreatitis Vision problems Wound of skin Home Medications atorvastatin 40 mg tablet 40 mg PO QHS Cholesterol 01/06/20 [History Last Taken 03/31/22] pantoprazole 40 mg tablet,delayed release 40 mg PO DAILY Gerd 09/10/20 [History Last Taken 04/01/22] calcium carbonate 600 mg-vitamin D3 10 mcg (400 unit) tablet 2 tab PO DAILY 03/08/22 [History Last Taken 04/01/22] levothyroxine 25 mcg tablet 25 mcg PO DAILY THYROID 04/02/22 [History Last Taken Unknown] furosemide 40 mg tablet 40 mg PO DAILY 07/16/22 [History Last Taken Unknown] insulin degludec 200 unit/mL (3 mL) subcutaneous pen (Tresiba FlexTouch U-200 insulin) 25 unit subcut BID 07/16/22 [History Last Taken Unknown] insulin lispro 100 unit/mL subcutaneous pen (Humalog KwikPen (U-100) Insulin) 17 unit subcut TIDWMEAL 07/16/22 [History Last Taken Unknown] mifepristone 300 mg tablet (Korlym) 300 mg PO DAILY 07/16/22 [History Last Taken Unknown] potassium chloride 20 mEq tablet,extended release 120 meq PO DAILY 09/06/22 [History Last Taken Unknown] Allergy/AdvReac Type Severity Reaction Status Date / Time adhesive tape AdvReac Intermediate Rash Verified 10/25/22 19:33 codeine AdvReac Intermediate Dizziness Verified 10/25/22 19:33 Family History Mother Diabetes Father Heart disease Hypertension Surgical History Hx of appendectomy Hx of cataract surgery Hx of cholecystectomy S/P hemodialysis catheter insertion S/P partial hysterectomy Status post ORIF of fracture of ankle Social History household members: spouse Smoking Status: Never smoker second hand exposure: No alcohol intake: never substance use type: does not use salas/jew: Gnosticism seatbelt use: always do you feel safe at home: Yes ROS Constitutional Constitutional: Reports weakness Eyes Eyes: Denies blurry vision ENT HEENT: Denies abnormal hearing Cardiovascular Cardiovascular: Denies chest pain Respiratory/Chest Respiratory/Chest: Denies cough Gastrointestinal Gastrointestinal: Reports abdominal pain, diarrhea, nausea and vomiting Genitourinary Genitourinary: Denies dysuria Musculoskeletal Musculoskeletal: Denies back pain Integumentary Integumentary: Denies dry skin Neurologic Neurologic: Denies abnormal speech Psychiatric Psychiatric: Denies anxiety Vital Signs Vital Signs Vital Signs: 10/25/22 19:30 10/25/22 23:00 Temperature 97.9 F Temperature Source Temporal Pulse Rate 89 92 Respiratory Rate 18 18 Blood Pressure 132/68 H 156/55 H Blood Pressure Mean 89 88 Pulse Ox 96 95 Oxygen Delivery Method Room Air Room Air Weight Weight: 185 lb Body Mass Index (BMI) 34.9 Physical Exam Const oriented x3 General Appearance: cooperative HEENT normocephalic and head/scalp atraumatic Eyes PERRL Neck no lymphadenopathy Lymph Lymphatic: no lymphadenopathy noted Resp normal respiratory effort, normal air movement and clear to auscultation bilaterally Cardio regular rate, regular rhythm, S1 normal heart sound, S2 normal heart sound and no murmurs GI soft to palpation Palpation: tender; Negative for guarding, no hepatosplenomegaly, hernia or rebound tenderness present Extremity normal capillary refill Skin General Skin Exam: no breakdown Neuro no focal motor deficits and no sensory deficits noted Results Lab / Micro Data Result Diagrams: 10/25/22 20:20 10/25/22 20:20 Labs: Laboratory Results - last 24 hr 10/25/22 20:20: WBC 7.6, RBC 4.42, Hgb 12.6, Hct 37.9, MCV 85.7, MCH 28.5, MCHC 33.2, RDW Std Deviation 43.6, RDW Coeff of Joe 13.9, Plt Count 227, MPV 11.2, Immature Gran % (Auto) 0.400, Neut % (Auto) 72.3 H, Lymph % (Auto) 18.4 L, Williamson % (Auto) 8.1, Eos % (Auto) 0.5, Baso % (Auto) 0.3, Absolute Neuts (auto) 5.5, Absolute Lymphs (auto) 1.39, Nucleated RBC % 0 10/25/22 20:20: Sodium 138, Potassium 2.7 L*, Chloride 94 L, Carbon Dioxide 31.0, Anion Gap 13, BUN 20 H, Creatinine 1.14 H, Estim Creat Clear Calc 35.15, Est GFR (MDRD) Af Amer 61, Est GFR (MDRD) Non-Af 50 L, BUN/Creatinine Ratio 17.5, Glucose 135 H, Calcium 9.4, Total Bilirubin 1.20 H, AST 25, ALT 18, Alkaline Phosphatase 71, Total Protein 7.3, Albumin 3.2, Globulin 4.1, Albumin/Globulin Ratio 0.8 L, Lipase 65 L Assessment & Plan Assessment/Plan (1) Viral gastroenteritis: (2) Intractable nausea and vomiting: (3) History of diabetes mellitus: (4) History of chronic kidney disease: (5) Acute hypokalemia: (6) End stage renal disease: (7) Depression: PLAN: Plan 1. Acute gastroenteritis with hypokalemia?admit patient to general medical floor for observation, start IV with D5 half-normal saline and 20 of K at a rate of 75 cc/h repeat BMP and CBC in the a.m. hold all p.o. medications overnight, consider p.o. challenge in the morning and advance diet as tolerated 2. History of chronic kidney disease will defer to nephrology as an outpatient to resume treatment 3. History of diabetes?we will monitor blood sugars and consider adding sliding scale insulin if patient unable to tolerate p.o. 4. Depression?continue routine medication when able to tolerate p.o. 5. DVT prophylaxis?SCD Charges/Coding Visit Charges OBSV E&M: 75390 Initial observation care L2
[2022-10-25 23:52] VITALS: BP 157/64; PULSE 88; RESP 18; TEMP 36.7; O2SAT 95
[2022-10-26] VITALS (10 sets, daily range): BP systolic 124–136; BP diastolic 45–62; PULSE 77–91; RESP 16–18; TEMP 36.5–37.3; O2SAT 92–99; BMI 33.6
[2022-10-26 06:22] LABS: Absolute Lymphocyte Count 1.35 X10^3/uL (0.83-4.51); Absolute Neutrophil Count 3.7 X10^3/uL (2.0-7.7); Basophil# 0.01 X10^3/uL; Basophil% 0.2 % (0-1); Eosinophil# 0.05 X10^3/uL; Eosinophils% 0.9 % (0-5); Hematocrit 34.4 % (37-47); Hemoglobin 11.4 g/dL (12.0-15.0); Lymphocyte # 1.35 X10^3/ul (0.83-4.51); Lymphocyte % 23.6 % (19-41); Mean Corp Hgb Conc 33.1 g/dL (32-36); Mean Corpuscular Hgb 28.6 pg (27.0-32.0); Mean Corpuscular Volume 86.4 fL (81-99); Mean Platelet Vol. 11.3 fl (6.2-12.0); Monocyte# 0.59 X10^3/uL; Monocyte% 10.3 % (0-10); NRBC Flagged by Analyzer 0 % (0-5); Neutrophil % 64.7 % (47-70); Platelet Count 225 K/mm3 (150-450); RBC Distribution Width SD 44.6 fl (35.1-43.9); Red Blood Count 3.98 M/mm3 (4.2-5.4); White Blood Count 5.7 K/mm3 (4.4-11.0)
[2022-10-26 06:53] LABS: Anion Gap 9 (5-15); BUN 17 mg/dL (7-18); BUN/Creat Ratio 14.7 RATIO (10-20); Calcium,Total 8.1 mg/dL (8.5-10.1); Chloride 97 mmol/L (98-107); Creatinine, Serum 1.16 mg/dL (0.55-1.02); EST Glomerular Filtration Rate 49 mL/min (>60); Est Glom Filt Rate - Afr Amer 60 mL/min (>60); Estimated Creatinine Clearance 34.54 ml/min; Glucose 104 mg/dL (74-106); Potassium 2.9 mmol/L (3.5-5.1); Sodium Level 138 mmol/L (136-145)
--- NOTE | 2022-10-26 07:11 | PCM.PN.HOSP ---
Subjective Subjective Follow-up for acute gastroenterocolitis with severe hypokalemia. Patient is feeling very weak and fatigued. Potassium is very low. Patient had temporary dialysis during previous admission in March 2022. Patient had mild decrease in the amount of urine with dark color. Objective Data Objective Data Vital Signs: Vital Signs Temp Pulse Resp BP Pulse Ox O2 Del Method 98.5 F 85 16 124/45 H 92 Room Air 10/26/22 05:44 10/26/22 05:44 10/26/22 05:44 10/26/22 05:44 10/26/22 05:44 10/26/22 05:44 Oxygen Delivery Method Room Air Weight: 178 lb 2.136 oz Body Mass Index (BMI) 33.6 Intake & Output: Intake and Output for Last 24 Hours 10/24/22 10/25/22 10/26/22 23:59 23:59 23:59 Intake Total 1100 / 1100 450 / 450 Balance 1100 / 1100 450 / 450 Lab / Micro Data Result Diagrams: 10/26/22 06:00 10/26/22 06:00 Labs: Laboratory Results - last 24 hr 10/25/22 20:20: WBC 7.6, RBC 4.42, Hgb 12.6, Hct 37.9, MCV 85.7, MCH 28.5, MCHC 33.2, RDW Std Deviation 43.6, RDW Coeff of Joe 13.9, Plt Count 227, MPV 11.2, Immature Gran % (Auto) 0.400, Neut % (Auto) 72.3 H, Lymph % (Auto) 18.4 L, [place] % (Auto) 8.1, Eos % (Auto) 0.5, Baso % (Auto) 0.3, Absolute Neuts (auto) 5.5, Absolute Lymphs (auto) 1.39, Nucleated RBC % 0 10/25/22 20:20: Sodium 138, Potassium 2.7 L*, Chloride 94 L, Carbon Dioxide 31.0, Anion Gap 13, BUN 20 H, Creatinine 1.14 H, Estim Creat Clear Calc 35.15, Est GFR (MDRD) Af Amer 61, Est GFR (MDRD) Non-Af 50 L, BUN/Creatinine Ratio 17.5, Glucose 135 H, Calcium 9.4, Total Bilirubin 1.20 H, AST 25, ALT 18, Alkaline Phosphatase 71, Total Protein 7.3, Albumin 3.2, Globulin 4.1, Albumin/Globulin Ratio 0.8 L, Lipase 65 L 10/26/22 06:00: Sodium 138, Potassium 2.9 L, Chloride 97 L, Carbon Dioxide 32.0, Anion Gap 9, BUN 17, Creatinine 1.16 H, Estim Creat Clear Calc 34.54, Est GFR (MDRD) Af Amer 60, Est GFR (MDRD) Non-Af 49 L, BUN/Creatinine Ratio 14.7, Glucose 104, Calcium 8.1 L 10/26/22 06:00: WBC 5.7, RBC 3.98 L, Hgb 11.4 L, Hct 34.4 L, MCV 86.4, MCH 28.6, MCHC 33.1, RDW Std Deviation 44.6 H, RDW Coeff of Joe 14.0, Plt Count 225, MPV 11.3, Immature Gran % (Auto) 0.300, Neut % (Auto) 64.7, Lymph % (Auto) 23.6, Humboldt % (Auto) 10.3 H, Eos % (Auto) 0.9, Baso % (Auto) 0.2, Absolute Neuts (auto) 3.7, Absolute Lymphs (auto) 1.35, Nucleated RBC % 0 Radiography Diagnostic Testing: Radiology Impression Abdomen/Pelvis CT 10/25/22 22:18 IMPRESSION: Colitis of the ascending and proximal transverse colon. Circumferential thickening of the distal esophageal wall, possible esophagitis or GERD. Findings have decreased partially from the prior study. Electronically Signed: Wiley Montez MD at 23:19 EST , Physical Exam Narrative Physical exam General: Alert, Oriented x3, Cooperative, fatigue. Obesity grade 1 BMI 33.7 kg/m? HEENT: Atraumatic, PERRLA, EOMI, Normocephalic Oral: Oral mucosa dry. No Gingival or Mucosal Lesions/ Ulcerations Neck: Scar kasey of left supraclavicular region of prior tunnel dialysis catheter supple, No JVD, Negative Carotid Bruits Lungs: Air entry diminished in bilateral lung bases. No crepitation/rhonchi Cardiovascular: Transient bradycardia, heart rate 35 to 40-minute, missed heartbeat. Currently, sinus 75 beats minute normal S1, Normal S2, No murmurs Abdomen: Bowel Sounds Present, Soft, Non Tender, Non-Distended : No renal angle tenderness. No suprapubic tenderness. Extremities: No edema, Capillary Refill Less than 3 Seconds Skin: No rashes, No breakdown Musculoskeletal: No Tenderness to Palpation of Joints or Extremities Neurological: Cranial nerves II-XII grossly intact, DTR 2+/4 and Symmetrical, Neuro grossly intact Psych/Mental Status: Flat affect Assessment & Plan Assessment/Plan (1) Viral gastroenteritis: (2) Acute hypokalemia: PLAN: Plan 67-year-old female was admitted with nausea vomiting and diarrhea since Tuesday for last 3 days. Patient could not tolerate p.o. intake. CT abdomen and pelvis individually reviewed and shows mild thickening of ascending and proximal transverse colon. Lipase normal. No fever. 1. Acute gastroenterocolitis: Patient is being admitted to PCU. Telemetry monitoring for hypokalemia. Was admitted in observation, convert to inpatient. Start with clear liquid diet. Patient diarrhea just stopped on Tuesday and therefore stool studies canceled. 2. Severe hypokalemia with transient severe bradycardia and missed heartbeat/arrhythmia: Patient had transient bradycardia arrhythmia. IV KCl 40 M EQ ordered. Serum magnesium and phosphorus are in normal range. 2. CKD stage IIIb: Estimated creatinine clearance is 35 mill per minute, creatinine 1.16. Patient creatinine clearance was Less than 10 in January 2022 with high creatinine 9.48.She was last admitted in March 2022 for acute kidney injury on CKD stage IIIb and was seen by Dr. Layne, the cooling pan tender and was dialyzed temporarily. 3. History of diabetes mellitus type II: Glucose is 104 on BMP. Monitor blood sugars and and medium Accu-Cheks sliding scale 4. Depression?continue routine medication when able to tolerate p.o. 5. DVT prophylaxis?SCD Total time of the visit including total time spent in counseling or coordination of care, (more than 50% of the total time, spent in obtaining medical information from nurses and other ancillary care providers,explaining to the patient about labs, imaging, diagnosis and management of active complex medical conditions), severe electrolyte abnormality with arrhythmia, review of labs and imaging is 40 minutes. Laboratory Results 10/25/22 20:20: WBC 7.6, RBC 4.42, Hgb 12.6, Hct 37.9, MCV 85.7, MCH 28.5, MCHC 33.2, RDW Std Deviation 43.6, RDW Coeff of Joe 13.9, Plt Count 227, MPV 11.2, Immature Gran % (Auto) 0.400, Neut % (Auto) 72.3 H, Lymph % (Auto) 18.4 L, [place] % (Auto) 8.1, Eos % (Auto) 0.5, Baso % (Auto) 0.3, Absolute Neuts (auto) 5.5, Absolute Lymphs (auto) 1.39, Nucleated RBC % 0 10/25/22 20:20: Sodium 138, Potassium 2.7 L*, Chloride 94 L, Carbon Dioxide 31.0, Anion Gap 13, BUN 20 H, Creatinine 1.14 H, Estim Creat Clear Calc 35.15, Est GFR (MDRD) Af Amer 61, Est GFR (MDRD) Non-Af 50 L, BUN/Creatinine Ratio 17.5, Glucose 135 H, Calcium 9.4, Total Bilirubin 1.20 H, AST 25, ALT 18, Alkaline Phosphatase 71, Total Protein 7.3, Albumin 3.2, Globulin 4.1, Albumin/Globulin Ratio 0.8 L, Lipase 65 L 10/26/22 06:00: Sodium 138, Potassium 2.9 L, Chloride 97 L, Carbon Dioxide 32.0, Anion Gap 9, BUN 17, Creatinine 1.16 H, Estim Creat Clear Calc 34.54, Est GFR (MDRD) Af Amer 60, Est GFR (MDRD) Non-Af 49 L, BUN/Creatinine Ratio 14.7, Glucose 104, Calcium 8.1 L 10/26/22 06:00: WBC 5.7, RBC 3.98 L, Hgb 11.4 L, Hct 34.4 L, MCV 86.4, MCH 28.6, MCHC 33.1, RDW Std Deviation 44.6 H, RDW Coeff of Joe 14.0, Plt Count 225, MPV 11.3, Immature Gran % (Auto) 0.300, Neut % (Auto) 64.7, Lymph % (Auto) 23.6, [place] % (Auto) 10.3 H, Eos % (Auto) 0.9, Baso % (Auto) 0.2, Absolute Neuts (auto) 3.7, Absolute Lymphs (auto) 1.35, Nucleated RBC % 0 Charges/Coding Visit Charges Inpatient E&M: 81879 Subs Hosp L3
[2022-10-26 07:43] LABS: Magnesium 1.7 mg/dL (1.6-2.6); Phosphorus 3.4 mg/dL (2.5-4.9)
[2022-10-26] MEDS: 0.9% Saline Lock 10 ML Syringe IV (08:15)
[2022-10-26] MEDS: Ondansetron 4 MG/2 ML Vial IV ×2 (08:15→19:47)
[2022-10-26] MEDS: Potassium Chloride 10mEq/100mL 10 MEQ/100 ML IV.SOLN. 100 MEQ IV BOLUS ×4 (08:18→11:55)
[2022-10-26] MEDS: Enoxaparin 30 MG/0.3 ML Syringe SC (10:57)
[2022-10-26 12:14] LABS: Bedside Glucose 112 mg/dL (74-106)
[2022-10-26 12:14] LABS: Bedside Glucose 102 mg/dL (74-106)
[2022-10-26 12:16] LABS: Bedside Glucose 142 mg/dL (74-106)
--- NOTE | 2022-10-26 13:37 | CASEMGMT ---
This RN CM to room to complete CM assessment and pt is sleeping without distress. CM to attempt again later. SStaten RN CM
--- NOTE | 2022-10-26 14:20 | CASEMGMT ---
CARLOS LIRIANO assessment: Face to Face with patient for initial transition planning/care coordination assessment. RN HERI introduced self and role at [facility], pt voices understanding and consents to assessment. Pt is lying in bed in no distress on room air. Pt is A/Ox4 and answers all questions appropriately.? Care providers, pharmacy,?and demographics verified. ? 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 [place] Living Will/HPOA: Pt has LW/HPOA and is aware that they are not on file at [facility]. Pt states her and daughter are HPOA's. LNOK: Hero Rivera, ; Lilian Kitchen, daughter Living Arrangements: Pt lives on main level of 2 story home and states no concerns at home. Pt is independent with ADL's. Transportation: Pt states does most of the driving and states no transportation concerns. DME/HHC: Pt has a cpap thru [facility] but states has not been using. Pt states has been to SNF in [place] and TCU in past. Pt has hx OP HD at [facility] but recovered. Pt states no concerns with going home at time of discharge. Pt is retired. Pt does not smoke cigarettes or drink ETOH. Pt voices no further concerns/needs. CM to follow for any further discharge planning/needs. Advised pt to ask for CM if any further questions/concerns/needs arise, voices understanding. Pt Goal: Home ? Plan: Home SStaten CARLOS LIRIANO ?
[2022-10-26 15:11] LABS: Potassium 3.7 mmol/L (3.5-5.1)
[2022-10-26 16:56] LABS: Bedside Glucose 166 mg/dL (74-106)
[2022-10-26] MEDS: Lactated Ringers 1,000 ML 75 ML IV (17:20)
[2022-10-26 18:32] LABS: Mucous, Urine 0 SEEN /hpf (<or=2+)
[2022-10-26 18:43] LABS: Color, Urine Yellow (Yellow); Glucose, Dipstick 250 mg/dl (Normal); Leukocyte Esterase-Dipstick Negative /ul (Negative); Nitrite-Dipstick Negative (Negative); Occult Blood-Urine 150 /ul (Negative); Protein-Dipstick 100 mg/dl (Negative); Urine Bilirubin Dipstick 1 mg/dL (Negative); Urine Clarity Sl. Cloudy (Clear); Urine Urobilinogen 4 mg/dl (Normal)
[2022-10-26 18:45] LABS: Ketone-Dipstick 150 mg/dl (Negative)
[2022-10-26 18:49] LABS: Bacteria 1+ /hpf (None Seen); Red Blood Cells-Urine 0-5 SEEN /hpf (0-5); Squamous Epithelial Cells - UA 5-10 SEEN /hpf (5-10); White Blood Cells 0-5 SEEN /hpf (0-5)
--- NOTE | 2022-10-26 20:48 | NURSING ---
Blood Glucose at 2044 was 167
[2022-10-27] VITALS (14 sets, daily range): BP systolic 115–147; BP diastolic 48–66; PULSE 65–88; RESP 14–18; TEMP 36.6–37.3; O2SAT 92–95
[2022-10-27] MEDS: 0.9% Saline Lock 10 ML Syringe IV ×4 (01:19→17:17)
[2022-10-27 01:46] LABS: Bedside Glucose 167 mg/dL (74-106)
[2022-10-27] MEDS: Lactated Ringers 1,000 ML 75 ML IV ×2 (04:02→21:24)
[2022-10-27] MEDS: Ondansetron 4 MG/2 ML Vial IV ×2 (04:25→17:17)
[2022-10-27 05:28] LABS: Absolute Lymphocyte Count 1.54 X10^3/uL (0.83-4.51); Absolute Neutrophil Count 2.6 X10^3/uL (2.0-7.7); Basophil# 0.02 X10^3/uL; Basophil% 0.4 % (0-1); Eosinophil# 0.09 X10^3/uL; Eosinophils% 1.9 % (0-5); Hematocrit 32.6 % (37-47); Lymphocyte # 1.54 X10^3/ul (0.83-4.51); Lymphocyte % 33.2 % (19-41); Mean Corp Hgb Conc 33.7 g/dL (32-36); Mean Corpuscular Hgb 29.4 pg (27.0-32.0); Mean Corpuscular Volume 87.2 fL (81-99); Monocyte# 0.42 X10^3/uL; Monocyte% 9.1 % (0-10); NRBC Flagged by Analyzer 0 % (0-5); Neutrophil # 2.57 X10^3/uL (2.7-7.7); Neutrophil % 55.4 % (47-70); Platelet Count 219 K/mm3 (150-450); RBC Distribution Width CV 14.2 % (11.6-14.6); RBC Distribution Width SD 45.6 fl (35.1-43.9); Red Blood Count 3.74 M/mm3 (4.2-5.4); White Blood Count 4.6 K/mm3 (4.4-11.0)
[2022-10-27 05:55] LABS: Anion Gap 7 (5-15); BUN 11 mg/dL (7-18); BUN/Creat Ratio 10.5 RATIO (10-20); Calcium,Total 8.1 mg/dL (8.5-10.1); Chloride 98 mmol/L (98-107); Creatinine, Serum 1.05 mg/dL (0.55-1.02); EST Glomerular Filtration Rate 55 mL/min (>60); Est Glom Filt Rate - Afr Amer 67 mL/min (>60); Estimated Creatinine Clearance 38.16 ml/min; Glucose 130 mg/dL (74-106); Potassium 2.9 mmol/L (3.5-5.1); Sodium Level 136 mmol/L (136-145)
[2022-10-27 06:26] LABS: Bedside Glucose 126 mg/dL (74-106)
[2022-10-27] MEDS: Enoxaparin 30 MG/0.3 ML Syringe SC (09:14)
[2022-10-27] MEDS: Potassium Chloride Oral Soln 20 MEQ/15 ML UDC 40 MEQ PO ×2 (09:14→16:56)
[2022-10-27] MEDS: Metoclopramide 10 MG/2 ML Vial 5 MG IV ×2 (10:49→15:47)
[2022-10-27] MEDS: Potassium Chloride 10mEq/100mL 10 MEQ/100 ML IV.SOLN. 100 MEQ IV BOLUS ×4 (10:59→14:31)
[2022-10-27 11:26] LABS: Bedside Glucose 127 mg/dL (74-106)
--- NOTE | 2022-10-27 15:39 | PN.HOSP_ITS ---
Subjective Subjective Follow-up for severe hypokalemia, occasional bradycardia and sinus pause. Patient is still nauseous and vomiting. Abdominal pain is better. Objective Data Objective Data Vital Signs: Vital Signs Temp Pulse Resp BP Pulse Ox O2 Del Method 98.5 F 78 18 139/66 H 92 Room Air 10/27/22 14:32 10/27/22 15:00 10/27/22 14:32 10/27/22 14:32 10/27/22 14:32 10/27/22 14:33 Oxygen Delivery Method Room Air Weight: 178 lb 2.136 oz Body Mass Index (BMI) 33.6 Intake & Output: Intake and Output for Last 24 Hours 10/25/22 10/26/22 10/27/22 23:59 23:59 23:59 Intake Total 1100 / 1100 2023.75 / 2023.75 1959.0 / 1959.0 Output Total 75 / 275 800 / 800 Balance 1100 / 1100 1948.75 / 1748.75 1159.0 / 1159.0 Lab / Micro Data Result Diagrams: 10/27/22 04:43 10/27/22 04:43 Labs: Laboratory Results - last 24 hr 10/26/22 16:31: POC Glucose 166 H 10/26/22 18:28: Urine Color Yellow, Urine Clarity Sl. Cloudy, Urine pH 6.0, Ur Specific Golden 1.020, Urine Protein 100 H, Urine Glucose (UA) 250 H, Urine Ketones 150 A*, Urine Occult Blood 150 H, Urine Nitrite Negative, Urine Bilirubin 1 H, Urine Urobilinogen 4 H, Ur Leukocyte Esterase Negative, Urine RBC 0-5 SEEN, Urine WBC 0-5 SEEN, Ur Squamous Epith Cells 5-10 SEEN, Urine Bacteria 1+, Urine Mucus 0 SEEN 10/26/22 20:45: POC Glucose 167 H 10/27/22 04:05: POC Glucose 126 H 10/27/22 04:43: WBC 4.6, RBC 3.74 L, Hgb 11.0 L, Hct 32.6 L, MCV 87.2, MCH 29.4, MCHC 33.7, RDW Std Deviation 45.6 H, RDW Coeff of Joe 14.2, Plt Count 219, MPV 11.0, Immature Gran % (Auto) 0.000, Neut % (Auto) 55.4, Lymph % (Auto) 33.2, Bates % (Auto) 9.1, Eos % (Auto) 1.9, Baso % (Auto) 0.4, Absolute Neuts (auto) 2.6, Absolute Lymphs (auto) 1.54, Nucleated RBC % 0 10/27/22 04:43: Sodium 136, Potassium 2.9 L, Chloride 98, Carbon Dioxide 31.0, Anion Gap 7, BUN 11, Creatinine 1.05 H, Estim Creat Clear Calc 38.16, Est GFR (MDRD) Af Amer 67, Est GFR (MDRD) Non-Af 55 L, BUN/Creatinine Ratio 10.5, Glucose 130 H, Calcium 8.1 L 10/27/22 11:06: POC Glucose 127 H Physical Exam Narrative Physical exam General: Alert, Oriented x3, Cooperative, fatigue. Obesity grade 1 BMI 33.7 kg/m? HEENT: Atraumatic, PERRLA, EOMI, Normocephalic Oral: Oral mucosa dry. No Gingival or Mucosal Lesions/ Ulcerations Neck: Scar kasey of left supraclavicular region of prior tunnel dialysis catheter supple, No JVD, Negative Carotid Bruits Lungs: Air entry diminished in bilateral lung bases. No crepitation/rhonchi Cardiovascular: Transient bradycardia, with sinus pause. As per nursing staff, she was having dry heaving/nausea therefore probably vagal effect. Sinus rhythm 78 bpm. No murmurs Abdomen: Bowel Sounds Present, Soft, Non Tender, Non-Distended : No renal angle tenderness. No suprapubic tenderness. Extremities: No edema, Capillary Refill Less than 3 Seconds Skin: No rashes, No breakdown Musculoskeletal: No Tenderness to Palpation of Joints or Extremities Neurological: Cranial nerves II-XII grossly intact, DTR 2+/4 and Symmetrical, Neuro grossly intact Psych/Mental Status: Flat affect Assessment & Plan Assessment/Plan (1) Viral gastroenteritis: (2) Acute hypokalemia: PLAN: Plan 67-year-old female was admitted with nausea vomiting and diarrhea since Tuesday for last 3 days. Patient could not tolerate p.o. intake. CT abdomen and pelvis individually reviewed and shows mild thickening of ascending and proximal transverse colon. Lipase normal. No fever. 1. Acute gastroenterocolitis: Patient is being admitted to PCU. Telemetry monitoring for hypokalemia. Was admitted in observation, convert to inpatient. Start with clear liquid diet. Patient diarrhea just stopped on Tuesday and therefore stool studies canceled. 10/27: Patient had nausea and vomiting and poor appetite. Advised oral intake soft diet. Reglan added on Zofran to improve nausea and gastric peristalsis. 2. Severe hypokalemia with transient severe bradycardia and missed hea rtbeat/arrhythmia: Patient had transient bradycardia arrhythmia. IV KCl 40 M EQ ordered. Serum magnesium and phosphorus are in normal range. 10/27: IV KCl 40 M EQ bolus ordered. Yesterday it improved to 3.7 but again dropped to 2.9 today. Magnesium 2 g IV sulfate also ordered for severe arrhyth carri, sinus bradycardia with sinus pause. Patient on oral 40 M EQ potassium twice daily. 2D echo is ordered. 2. CKD stage IIIb: Estimated creatinine clearance is 35 mill per minute, creatinine 1.16. Patient creatinine clearance was Less than 10 in January 2022 with high creatinine 9.48.She was last admitted in March 2022 for acute kidney injury on CKD stage IIIb and was seen by Dr. Layne, the critical care unit nurse and was dialyzed temporarily. 3. History of diabetes mellitus type II: Glucose is 104 on BMP. Monitor blood sugars and and medium Accu-Cheks sliding scale 4. Depression?continue routine medication when able to tolerate p.o. 5. DVT prophylaxis?SCD Total time of the visit including total time spent in counseling or coordination of care, (more than 50% of the total time, spent in obtaining medical information from nurses and other ancillary care providers,explaining to the patient about labs, imaging, diagnosis and management of active complex medical conditions), severe electrolyte abnormality with arrhythmia, review of labs and imaging is 40 minutes. Laboratory Results 10/26/22 16:31: POC Glucose 166 H 10/26/22 18:28: Urine Color Yellow, Urine Clarity Sl. Cloudy, Urine pH 6.0, Ur Specific Golden 1.020, Urine Protein 100 H, Urine Glucose (UA) 250 H, Urine Ketones 150 A*, Urine Occult Blood 150 H, Urine Nitrite Negative, Urine Bilir ubin 1 H, Urine Urobilinogen 4 H, Ur Leukocyte Esterase Negative, Urine RBC 0-5 SEEN, Urine WBC 0-5 SEEN, Ur Squamous Epith Cells 5-10 SEEN, Urine Bacteria 1+, Urine Mucus 0 SEEN 10/26/22 20:45: POC Glucose 167 H 10/27/22 04:05: POC Glucose 126 H 10/27/22 04:43: WBC 4.6, RBC 3.74 L, Hgb 11.0 L, Hct 32.6 L, MCV 87.2, MCH 29.4, MCHC 33.7, RDW Std Deviation 45.6 H, RDW Coeff of Joe 14.2, Plt Count 219, MPV 11.0, Immature Gran % (Auto) 0.000, Neut % (Auto) 55.4, Lymph % (Auto) 33.2, Bates % (Auto) 9.1, Eos % (Auto) 1.9, Baso % (Auto) 0.4, Absolute Neuts (auto) 2.6, Absolute Lymphs (auto) 1.54, Nucleated RBC % 0 10/27/22 04:43: Sodium 136, Potassium 2.9 L, Chloride 98, Carbon Dioxide 31.0, Anion Gap 7, BUN 11, Creatinine 1.05 H, Estim Creat Clear Calc 38.16, Est GFR (MDRD) Af Amer 67, Est GFR (MDRD) Non-Af 55 L, BUN/Creatinine Ratio 10.5, Glucose 130 H, Calcium 8.1 L 10/27/22 11:06: POC Glucose 127 H Charges/Coding Visit Charges Inpatient E&M: 94711 Subs Hosp L3
--- NOTE | 2022-10-27 15:47 | ECHOD_ITS ---
Reason For Study: SINUS BRADYCARDIA Procedure This was a 2D Doppler, Color Flow transthoracic echocardiogram. Exam performed portable in patient room. Left Ventricle Normal size and thickness. The left ventricular ejection fraction is 65 %. No evidence for diastolic dysfunction. Right Ventricle Normal right ventricle. Atria Normal left atrium. Catheter artifact noted in right atrium. Mitral Valve Trivial mitral valve insufficiency. Tricuspid Valve Trivial tricuspid valve insufficiency. Unable to estimate RV systolic pressure due to insufficient tricuspid regurgitant envelope. Aortic Valve Normal aortic valve. Pulmonic Valve The pulmonic valve is not well visualized. Mild (1+) pulmonic valve insufficiency. Great Vessels Normal sized aortic root. Pericardium/Pleural No pericardial effusion. MMode/2D Measurements & Calculations LVIDd: 3.7 cm IVSd: 0.96 cm Ao root diam: 3.0 cm LVIDs: 2.4 cm LVPWd: 0.98 cm RVDd: 3.5 cm FS: 34.4 % LAV(MOD-bp): 31.9 ml LVAd ap4: 28.7 cm2 SV(MOD-sp4): 56.8 ml LAV(MOD-bp) Indexed: 17.8 ml/m2 LVLd ap4: 7.6 cm LAV(MOD-sp2): 29.6 ml EDV(MOD-sp4): 87.7 ml LAV(MOD-sp4): 31.5 ml EDV(sp4-el): 92.0 ml LVAs ap4: 15.0 cm2 LVLs ap4: 6.5 cm ESV(MOD-sp4): 31.0 ml ESV(sp4-el): 29.6 ml EF(MOD-sp4): 64.7 % EF(sp4-el): 67.9 % SV(sp4-el): 62.4 ml LA A4 area: 13.3 cm2 LA dimension(2D): 3.2 cm RA A4 area: 10.9 cm2 Time Measurements MV dec time: 0.22 sec Doppler Measurements & Calculations MV E max aries: 118.7 cm/sec Lat Peak E' Aries: 11.4 cm/sec Med Peak E' Aries: 8.0 cm/sec MV A max aries: 99.5 cm/sec E/E' lat: 10.4 E/E' med: 14.9 MV E/A: 1.2 Ao V2 max: 106.7 cm/sec LV V1 max: 104.3 cm/sec PA V2 max: 85.7 cm/sec Ao max P.6 mmHg LV V1 max P.4 mmHg TR max aries: 287.7 cm/sec TR max P.1 mmHg ECHO/Echo Complete Interpretation Summary The left ventricular ejection fraction is 65 %. No evidence for diastolic dysfunction. Catheter artifact noted in right atrium Mild (1+) pulmonic valve insufficiency. Ordering Physician: Marcos Caceres Referring Physician: JESUS MANUEL MONTANEZ Performed By: Gracie Lynch RDCS
[2022-10-27 17:20] LABS: Bedside Glucose 174 mg/dL (74-106)
[2022-10-27] MEDS: Atorvastatin Calcium 40 MG Tablet PO (21:24)
[2022-10-27] MEDS: Ensure Clear 120 ML Liquid PO (21:24)
[2022-10-27 22:01] LABS: Magnesium 1.9 mg/dL (1.6-2.6); Potassium 3.8 mmol/L (3.5-5.1)
[2022-10-27 22:25] LABS: Bedside Glucose 147 mg/dL (74-106)
[2022-10-28] VITALS (14 sets, daily range): BP systolic 115–175; BP diastolic 58–78; PULSE 68–75; RESP 14–18; TEMP 36.2–37.1; O2SAT 87–98
[2022-10-28] MEDS: Levothyroxine 25 MCG TABLET PO (06:16)
[2022-10-28] MEDS: Metoclopramide 10 MG/2 ML Vial 5 MG IV ×3 (06:16→16:08)
[2022-10-28] MEDS: 0.9% Saline Lock 10 ML Syringe IV ×3 (06:19→16:08)
[2022-10-28 06:57] LABS: Absolute Lymphocyte Count 1.42 X10^3/uL (0.83-4.51); Absolute Neutrophil Count 2.3 X10^3/uL (2.0-7.7); Basophil# 0.02 X10^3/uL; Basophil% 0.5 % (0-1); Eosinophil# 0.15 X10^3/uL; Eosinophils% 3.5 % (0-5); Hematocrit 31.7 % (37-47); Hemoglobin 10.4 g/dL (12.0-15.0); Lymphocyte # 1.42 X10^3/ul (0.83-4.51); Lymphocyte % 33.3 % (19-41); Mean Corp Hgb Conc 32.8 g/dL (32-36); Mean Corpuscular Hgb 28.6 pg (27.0-32.0); Mean Corpuscular Volume 87.1 fL (81-99); Mean Platelet Vol. 11.2 fl (6.2-12.0); Monocyte# 0.36 X10^3/uL; Monocyte% 8.4 % (0-10); NRBC Flagged by Analyzer 0 % (0-5); Neutrophil # 2.31 X10^3/uL (2.7-7.7); Neutrophil % 54.1 % (47-70); Platelet Count 221 K/mm3 (150-450); RBC Distribution Width CV 13.9 % (11.6-14.6); RBC Distribution Width SD 44.5 fl (35.1-43.9); Red Blood Count 3.64 M/mm3 (4.2-5.4); White Blood Count 4.3 K/mm3 (4.4-11.0)
[2022-10-28 07:11] LABS: Anion Gap 5 (5-15); BUN 6 mg/dL (7-18); BUN/Creat Ratio 6.3 RATIO (10-20); Calcium,Total 7.8 mg/dL (8.5-10.1); Chloride 99 mmol/L (98-107); Creatinine, Serum 0.95 mg/dL (0.55-1.02); EST Glomerular Filtration Rate 62 mL/min (>60); Est Glom Filt Rate - Afr Amer 75 mL/min (>60); Estimated Creatinine Clearance 42.17 ml/min; Glucose 171 mg/dL (74-106); Potassium 3.1 mmol/L (3.5-5.1); Sodium Level 136 mmol/L (136-145)
[2022-10-28 07:25] LABS: Bedside Glucose 164 mg/dL (74-106)
--- NOTE | 2022-10-28 07:44 | PN.HOSP_ITS ---
Subjective Subjective Follow-up for persistent nausea, vomiting and one-time loose bowel movement yesterday along with severe hypokalemia. Patient also having intermittent bradycardia with sinus pause. Objective Data Objective Data Vital Signs: Vital Signs Temp Pulse Resp BP Pulse Ox O2 Del Method O2 Flow Rate 98.7 F 70 14 115/58 L 87 Room Air 2 10/28/22 07:33 10/28/22 07:33 10/28/22 07:33 10/28/22 07:33 10/28/22 07:33 10/28/22 07:33 10/28/22 07:33 Oxygen Flow Rate (L/min) 2 Oxygen Delivery Method Room Air Weight: 178 lb 2.136 oz Body Mass Index (BMI) 33.6 Intake & Output: Intake and Output for Last 24 Hours 10/26/22 10/27/22 10/28/22 23:59 23:59 23:59 Intake Total 2023.75 / 2023.75 2847.75 / 2847.75 104 / 104 Output Total 75 / 275 1300 / 1300 Balance 1948.75 / 1748.75 1547.75 / 1547.75 104 / 104 Lab / Micro Data Result Diagrams: 10/28/22 06:00 10/28/22 06:00 Labs: Laboratory Results - last 24 hr 10/27/22 11:06: POC Glucose 127 H 10/27/22 16:55: POC Glucose 174 H 10/27/22 21:10: Potassium 3.8, Magnesium 1.9 10/27/22 21:30: POC Glucose 147 H 10/28/22 06:00: WBC 4.3 L, RBC 3.64 L, Hgb 10.4 L, Hct 31.7 L, MCV 87.1, MCH 28.6, MCHC 32.8, RDW Std Deviation 44.5 H, RDW Coeff of Joe 13.9, Plt Count 221, MPV 11.2, Immature Gran % (Auto) 0.200, Neut % (Auto) 54.1, Lymph % (Auto) 33.3, Antelope % (Auto) 8.4, Eos % (Auto) 3.5, Baso % (Auto) 0.5, Absolute Neuts (auto) 2.3, Absolute Lymphs (auto) 1.42, Nucleated RBC % 0 10/28/22 06:00: Sodium 136, Potassium 3.1 L, Chloride 99, Carbon Dioxide 32.0, Anion Gap 5, BUN 6 L, Creatinine 0.95, Estim Creat Clear Calc 42.17, Est GFR (MDRD) Af Amer 75, Est GFR (MDRD) Non-Af 62, BUN/Creatinine Ratio 6.3 L, Glucose 171 H, Calcium 7.8 L 10/28/22 06:24: POC Glucose 164 H Physical Exam Narrative Physical exam General: Alert, Oriented x3, Cooperative, fatigue. Obesity grade 1 BMI 33.7 kg/m? HEENT: Atraumatic, PERRLA, EOMI, Normocephalic Oral: Oral mucosa moist. No Gingival or Mucosal Lesions/ Ulcerations Neck: Scar kasey of left supraclavicular region of prior tunnel dialysis catheter supple, No JVD, Negative Carotid Bruits Lungs: Air entry diminished in bilateral lung bases. No crepitation/rhonchi Cardiovascular: Sinus pause about 4 seconds yesterday. Intermittent bradycardia 35-40. Most probably vagal effect. Sinus rhythm 74 bpm. No murmurs Abdomen: Bowel Sounds Present, Soft, Non Tender, Non-Distended : No renal angle tenderness. No suprapubic tenderness. Extremities: No edema, Capillary Refill Less than 3 Seconds Skin: No rashes, No breakdown Musculoskeletal: No Tenderness to Palpation of Joints or Extremities, muscle strength 4+/5 at major joints of thighs and knees left lower extremity. Neurological: Cranial nerves II-XII grossly intact, DTR 2+/4 and Symmetrical, Neuro grossly intact Psych/Mental Status: Flat affect Assessment & Plan Assessment/Plan (1) Viral gastroenteritis: (2) Acute hypokalemia: PLAN: Plan 67-year-old female was admitted with nausea vomiting and diarrhea since Tuesday for last 3 days. Patient could not tolerate p.o. intake. CT abdomen and pelvis individually reviewed and shows mild thickening of ascending and proximal transverse colon. Lipase normal. No fever. 1. Acute gastroenterocolitis: Patient is being admitted to PCU. Telemetry monitoring for hypokalemia. Was admitted in observation, convert to inpatient. Start with clear liquid diet. Patient diarrhea just stopped on Tuesday and therefore stool studies canceled. 10/27: Patient had nausea and vomiting and poor appetite. Advised oral intake soft diet. Reglan added on Zofran to improve nausea and gastric peristalsis. 10/28: Patient vomited after eating vegetable soup in dinner last night. Persistent nausea vomiting despite on Zofran and Reglan. Mild nonspecific lower quadrants abdominal pain. No guarding/DVT or surgical abdomen. GI consult requested and discussed with Dr. Spence. Since patient did not had diarrhea after admission but had 1 time yesterday therefore stool for enteric pathogen, occult blood and leukocytes and Giardia ordered. 2. Severe hypokalemia with transient severe bradycardia and missed heartbeat/arrhythmia: Patient had transient bradycardia arrhythmia. IV KCl 40 M EQ ordered. Serum magnesium and phosphorus are in normal range. 10/27: IV KCl 40 M EQ bolus ordered. Yesterday it improved to 3.7 but again dropped to 2.9 today. Magnesium 2 g IV sulfate also ordered for severe arrhythmia, sinus bradycardia with sinus pause. Patient on oral 40 M EQ potassium twice daily. 2D echo is ordered. 10/28: K3.1 slightly better. 40 M EQ IV KCl ordered as increasing oral potassium might cause osmotic diarrhea therefore keep oral K 40 M EQ twice daily. Serum magnesium and phosphorus ordered. Bradycardia and sinus pause about 4.8 ms yesterday evening. 2D echo pending. Monitor telemetry any further sinus pause will consult cardiology. I suspect br adycardia arrhythmia is due to severe hypokalemia and is reversible as she did not had structural or functional cardiac disease in the past. 2. CKD stage IIIb: Estimated creatinine clearance is 35 mill per minute, creatinine 1.16. Patient creatinine clearance was Less than 10 in January 2022 with high creatinine 9.48.She was last admitted in March 2022 for acute kidney injury on CKD stage IIIb and was seen by Dr. Layne, the global program director and was dialyzed temporarily. 10/28: Estimated creatinine clearance is 42 mill per minute, BUN/Creatinine 6/0.95. 3. History of diabetes mellitus type II: Glucose is 104 on BMP. Monitor blood sugars and and medium Accu-Cheks sliding scale 10/28: Glucose is reasonably controlled. 4. Depression?continue routine medication when able to tolerate p.o. 5. DVT prophylaxis?SCD Total time of the visit including total time spent in counseling or coordination of care, (more than 50% of the total time, spent in obtaining medical information from nurses and other ancillary care providers,explaining to the patient about labs, imaging, diagnosis and management of active complex medical conditions), severe electrolyte abnormality with arrhythmia, GI consult, review of labs and imaging is 45 minutes. Laboratory Results 10/27/22 11:06: POC Glucose 127 H 10/27/22 16:55: POC Glucose 174 H 10/27/22 21:10: Potassium 3.8, Magnesium 1.9 10/27/22 21:30: POC Glucose 147 H 10/28/22 06:00: WBC 4.3 L, RBC 3.64 L, Hgb 10.4 L, Hct 31.7 L, MCV 87.1, MCH 28.6, MCHC 32.8, RDW Std Deviation 44.5 H, RDW Coeff of Joe 13.9, Plt Count 221, MPV 11.2, Immature Gran % (Auto) 0.200, Neut % (Auto) 54.1, Lymph % (Auto) 33.3, Antelope % (Auto) 8.4, Eos % (Auto) 3.5, Baso % (Auto) 0.5, Absolute Neuts (auto) 2.3, Absolute Lymphs (auto) 1.42, Nucleated RBC % 0 10/28/22 06:00: Sodium 136, Potassium 3.1 L, Chloride 99, Carbon Dioxide 32.0, Anion Gap 5, BUN 6 L, Creatinine 0.95, Estim Creat Clear Calc 42.17, Est GFR (MDRD) Af Amer 75, Est GFR (MDRD) Non-Af 62, BUN/Creatinine Ratio 6.3 L, Glucose 171 H, Calcium 7.8 L 10/28/22 06:24: POC Glucose 164 H Charges/Coding Visit Charges Inpatient E&M: 43957 Subs Hosp L3
[2022-10-28 08:08] LABS: Magnesium 2.4 mg/dL (1.6-2.6); Phosphorus 1.8 mg/dL (2.5-4.9)
[2022-10-28] MEDS: Potassium Chloride Oral Soln 20 MEQ/15 ML UDC 40 MEQ PO (08:58)
[2022-10-28] MEDS: Enoxaparin 30 MG/0.3 ML Syringe SC (08:58)
[2022-10-28] MEDS: Potassium Chloride 10mEq/100mL 10 MEQ/100 ML IV.SOLN. 100 MEQ IV BOLUS ×4 (09:06→13:17)
[2022-10-28 11:45] LABS: Bedside Glucose 161 mg/dL (74-106)
--- NOTE | 2022-10-28 13:20 | CASEMGMT ---
SW reviewed patient's therapy notes and they are recommending further therapy. This BHARTI and BHARTI Koch met with patient. Introduced selves and role at [facility]. SW asked patient if she feels she will be okay going home or will she need to go somewhere for rehab. Patient said she feels she can go home. SW asked if she would like home health and patient declined. Esme Davenport MSW OZZIE
[2022-10-28] MEDS: Lactated Ringers 1,000 ML 75 ML IV (16:06)
[2022-10-28] MEDS: Na Biphos/Potassium Phosphate PACKET 1 PACKET PO ×3 (16:07→22:54)
[2022-10-28 17:06] LABS: Bedside Glucose 160 mg/dL (74-106)
--- NOTE | 2022-10-28 17:27 | PCM.CONS.GEN ---
Assessment & Plan Assessment/Plan (1) Intractable nausea and vomiting: PLAN: Likely secondary to infectious gastroparesis with severe erosive esophagitis. She will undergo an egd to evaluate the upper GI tract. Continue the current management with anti nausea medications and PPI therapy. (2) Ileocolitis: PLAN: The differential diagnosis in acute setting would be infectious ileocolitis and not inflammatory bowel disease as she does not have any signs or symptoms of inflammatory bowel disease at this time. I suspect she either had a Yersinia infection versus Campylobacter or E. coli. I would not give her antibiotics for her CT scan findings. I would check stool studies. HPI Consult Data Date of Consult: 10/28/22 HPI Narrative Reason for Consultation: nausea, vomiting and diarrhea HPI Narrative: LA DORMAN, is a 67 F who presented to the emergency room with chief complaint of nausea, vomiting and diarrhea.? Onset of symptoms began Tuesday and have progressively become worse.? Patient now feels weak and has poor appetite, and has been unable to keep liquids down.? She states many of her grandchildren also had similar symptoms last week.? She denies any fevers or chills but does complain of generalized abdominal pain.? She does have past surgical history of cholecystectomy. CT scan of abdomen : ?Colitis of the ascending and proximal transverse colon. ? Circumferential thickening of the distal esophageal wall, possible esophagitis or GERD.? Findings have decreased partially from the prior study. She has been struggling with severe hypokalemia, occasional bradycardia and sinus pause.? She is still very nauseous but not vomiting anymore. She patient is still nauseous and vomiting. Her abdominal pain is better. [facility] Medical History BALDO (acute kidney injury) Anemia Anemia of chronic renal failure, stage 3 (moderate) Back problem Bone fracture Cataracts, bilateral Diabetes type 2, controlled Major depressive disorder, recurrent episode Obstructive sleep apnea on CPAP Pancreatitis Vision problems Wound of skin Home Medications atorvastatin 40 mg tablet 40 mg PO QHS Cholesterol 01/06/20 [History Last Taken 03/31/22] pantoprazole 40 mg tablet,delayed release 40 mg PO DAILY Gerd 09/10/20 [History Last Taken 04/01/22] calcium carbonate 600 mg-vitamin D3 10 mcg (400 unit) tablet 2 tab PO DAILY 03/08/22 [History Last Taken 04/01/22] levothyroxine 25 mcg tablet 25 mcg PO DAILY THYROID 04/02/22 [History Last Taken Unknown] furosemide 40 mg tablet 40 mg PO DAILY 07/16/22 [History Last Taken Unknown] insulin degludec 200 unit/mL (3 mL) subcutaneous pen (Tresiba FlexTouch U-200 insulin) 25 unit subcut BID 07/16/22 [History Last Taken Unknown] insulin lispro 100 unit/mL subcutaneous pen (Humalog KwikPen (U-100) Insulin) 22 unit subcut TIDWMEAL 07/16/22 [History Last Taken Unknown] mifepristone 300 mg tablet (Korlym) 300 mg PO BID 07/16/22 [History Last Taken Unknown] cholecalciferol (vitamin D3) 25 mcg (1,000 unit) capsule (Vitamin D3) 10/25/22 [History Last Taken Unknown] ferrous sulfate 325 mg (65 mg iron) tablet (iron) mg 10/25/22 [History Last Taken Unknown] potassium chloride 20 mEq tablet,extended release(part/cryst) 40 meq PO BID 10/25/22 [History Last Taken Unknown] Allergy/AdvReac Type Severity Reaction Status Date / Time adhesive tape AdvReac Intermediate Rash Verified 10/25/22 19:33 codeine AdvReac Intermediate Dizziness Verified 10/25/22 19:33 Family History Mother Diabetes Father Heart disease Hypertension Surgical History Hx of appendectomy Hx of cataract surgery Hx of cholecystectomy S/P hemodialysis catheter insertion S/P partial hysterectomy Status post ORIF of fracture of ankle Social History household members: spouse Smoking Status: Never smoker second hand exposure: No alcohol intake: never substance use type: does not use salas/uatsdin: Anabaptist seatbelt use: always do you feel safe at home: Yes ROS Constitutional Constitutional: Reports weakness Eyes Eyes: Denies blurry vision ENT HEENT: Denies abnormal hearing Cardiovascular Cardiovascular: Denies chest pain Respiratory/Chest Respiratory/Chest: Denies cough Gastrointestinal Gastrointestinal: Reports abdominal pain, diarrhea, nausea and vomiting Genitourinary Genitourinary: Denies dysuria Musculoskeletal Musculoskeletal: Denies back pain Integumentary Integumentary: Denies dry skin Neurologic Neurologic: Denies abnormal speech Psychiatric Psychiatric: Denies anxiety Physical Exam Narrative Physical exam General: Alert, Oriented x3, Cooperative, fatigue. Obesity grade 1 BMI 33.7 kg/m? HEENT: Atraumatic, PERRLA, EOMI, Normocephalic Oral: Oral mucosa moist. No Gingival or Mucosal Lesions/ Ulcerations Neck: Scar kasey of left supraclavicular region of prior tunnel dialysis catheter supple, No JVD, Negative Carotid Bruits Lungs: Air entry diminished in bilateral lung bases. No crepitation/rhonchi Cardiovascular: Sinus pause about 4 seconds yesterday. Intermittent bradycardia 35-40. Most probably vagal effect. Sinus rhythm 74 bpm. No murmurs Abdomen: Bowel Sounds Present, Soft, Non Tender, Non-Distended : No renal angle tenderness. No suprapubic tenderness. Extremities: No edema, Capillary Refill Less than 3 Seconds Skin: No rashes, No breakdown Musculoskeletal: No Tenderness to Palpation of Joints or Extremities, muscle strength 4+/5 at major joints of thighs and knees left lower extremity. Neurological: Cranial nerves II-XII grossly intact, DTR 2+/4 and Symmetrical, Neuro grossly intact Psych/Mental Status: Flat affect Lab / Micro Data Result Diagrams: 10/28/22 06:00 10/28/22 06:00 Labs: Laboratory Results - last 24 hr 10/27/22 21:10: Potassium 3.8, Magnesium 1.9 10/27/22 21:30: POC Glucose 147 H 10/28/22 06:00: WBC 4.3 L, RBC 3.64 L, Hgb 10.4 L, Hct 31.7 L, MCV 87.1, MCH 28.6, MCHC 32.8, RDW Std Deviation 44.5 H, RDW Coeff of Joe 13.9, Plt Count 221, MPV 11.2, Immature Gran % (Auto) 0.200, Neut % (Auto) 54.1, Lymph % (Auto) 33.3, [place] % (Auto) 8.4, Eos % (Auto) 3.5, Baso % (Auto) 0.5, Absolute Neuts (auto) 2.3, Absolute Lymphs (auto) 1.42, Nucleated RBC % 0 10/28/22 06:00: Sodium 136, Potassium 3.1 L, Chloride 99, Carbon Dioxide 32.0, Anion Gap 5, BUN 6 L, Creatinine 0.95, Estim Creat Clear Calc 42.17, Est GFR (MDRD) Af Amer 75, Est GFR (MDRD) Non-Af 62, BUN/Creatinine Ratio 6.3 L, Glucose 171 H, Calcium 7.8 L 10/28/22 06:00: Phosphorus 1.8 L, Magnesium 2.4 10/28/22 06:24: POC Glucose 164 H 10/28/22 11:21: POC Glucose 161 H 10/28/22 16:21: POC Glucose 160 H Micro: Microbiology 10/26/22 18:28 Urine, Clean Catch Urine Culture - Final Mixed Gram Positive Organisms Radiology Impression Echocardiogram 10/27/22 15:47 Interpretation Summary The left ventricular ejection fraction is 65 %. No evidence for diastolic dysfunction. Catheter artifact noted in right atrium Mild (1+) pulmonic valve insufficiency. Ordering Physician: Marcos Caceres Referring Physician: JESUS MANUEL MONTANEZ Performed By: Gracie Lynch, LISA Charges/Coding Visit Charges Inpatient E&M: 55239 Subs Hosp L2
[2022-10-28] MEDS: Atorvastatin Calcium 40 MG Tablet PO (22:54)
[2022-10-28] MEDS: hydrALAZINE 20 MG/ML Vial 5 MG IV (23:59)
[2022-10-29] VITALS (18 sets, daily range): BP systolic 84–149; BP diastolic 44–82; PULSE 66–82; RESP 16–18; TEMP 36.2–37.3; O2SAT 88–100; BMI 33.6
[2022-10-29] MEDS: 0.9% Saline Lock 10 ML Syringe IV ×3 (00:02→16:55)
[2022-10-29 00:20] LABS: Bedside Glucose 151 mg/dL (74-106)
[2022-10-29] MEDS: Lactated Ringers 1,000 ML 75 ML IV ×2 (03:52→18:41)
[2022-10-29] MEDS: Metoclopramide 10 MG/2 ML Vial 5 MG IV ×3 (06:27→16:55)
--- NOTE | 2022-10-29 06:58 | NURSING ---
Shift documentation reviewed with Araceli GONZALEZ.
[2022-10-29 07:15] LABS: Bedside Glucose 127 mg/dL (74-106)
[2022-10-29 07:48] LABS: Anion Gap 6 (5-15); BUN 4 mg/dL (7-18); BUN/Creat Ratio 4.9 RATIO (10-20); Calcium,Total 8.2 mg/dL (8.5-10.1); Chloride 101 mmol/L (98-107); Creatinine, Serum 0.81 mg/dL (0.55-1.02); EST Glomerular Filtration Rate 74 mL/min (>60); Est Glom Filt Rate - Afr Amer 90 mL/min (>60); Estimated Creatinine Clearance 49.46 ml/min; Glucose 128 mg/dL (74-106); Phosphorus 2.8 mg/dL (2.5-4.9); Potassium 2.8 mmol/L (3.5-5.1); Sodium Level 139 mmol/L (136-145)
[2022-10-29] MEDS: Enoxaparin 30 MG/0.3 ML Syringe SC (10:22)
--- NOTE | 2022-10-29 11:30 | EGD_PTH ---
PATIENT: LA DORMAN LOC: [facility] U#:[id number] AGE/SX: 67/F ROOM: [facility] RE10/26/[address]: Dr. Bob Eisenberg DO : 1955 BED: 1 DIS: 11/01/2022 SPEC #: [id number] RECD: 10/29/22 12:01 STATUS: SONNY ANDREW #: [id number] NIKHIL: 10/29/22 11:[address]: Britton Spence DEPT: SURGICAL PATHOLOGY RECD BY: Jannet Nguyen ENTERED: 10/29/22 12:55 SP TYPE: EGD BIOPSY OTHR DR: MD Dr. Elgin Cm MD Dr. Tai Chi Kwok, MD Tissues: A - Duodenum, NOS B - Esophagus, NOS Procedures: Special Stain Group II Surgery Specimen Level IV Alcian Blue/PAS (control) Comments: @ Ordering doctor for SUIV edited from to @ by MARLINE at 10/29/22 142 @ Submitting doctor edited from to @ by SKINNYOD at 10/29/22 1425 HEADER OPERATION[place] [place] PRE-[place] DIAGNOSIS: Intractable nausea and vomiting, ileocolitis TISSUE SUBMITTED: A ? Duodenum polyp biopsy, B ? Distal esophagus biopsy MICROSCOPIC DIAGNOSIS A. Duodenal polyp, biopsy: Fragments of gastric mucosa with moderate chronic inflammation. See comment. B. Distal esophagus, biopsy: Fragments of gastroesophageal mucosa with moderate chronic inflammation. Intestinal metaplasia (goblet cell metaplasia) not identified. See comment. SJ:rg 11/01/2022 COMMENT A. The findings may represent gastric metaplasia. B. Alcian blue/PAS stain with matched control is used in the evaluation of the specimen. MICROSCOPIC DESCRIPTION Slides are reviewed. GROSS DESCRIPTION A - Received in fixative is one container labeled with the patient's name and designated duodenal polyp. The specimen consists of two irregular fragments of light keller soft tissue that in aggregate measure 0.6 x 0.5 x 0.1 cm. The specimen is totally submitted in one cassette. B - Received in fixative is one container labeled with the patient's name and designated distal esophagus. The specimen consists of multiple irregular fragments of light keller soft tissue that in aggregate measure 1 x 0.5 x 0.1 cm. The specimen is totally submitted in one cassette. / AM:erlinda 10/29/2022 TC:3 CPT: 81001 x2 , 67552
--- NOTE | 2022-10-29 11:55 | OP.EGD_ITS ---
Patient Name: Shantell Rivera Procedure Date: 10/29/2022 11:31 AM Date of : 1955 Age: 67 Procedure: Upper GI endoscopy Indications: Epigastric abdominal pain, Functional Dyspepsia, Suspected esophageal reflux, Abnormal CT of the GI tract Providers: Britton Spence DO Medicines: Monitored Anesthesia Care Patient Profile: This is a 67 year old female. Refer to note in patient chart for documentation of history and physical. Complications: No immediate complications. Procedure: Pre-Anesthesia Assessment: - Prior to the procedure, a History and Physical was performed, and patient medications and allergies were reviewed. The risks and benefits of the procedure and the sedation options and risks were discussed with the patient. All questions were answered and informed consent was obtained. Patient identification and proposed procedure were verified by the physician. Airway Examination: normal oropharyngeal airway and neck mobility. Respiratory Examination: clear to auscultation. CV Examination: normal. Prophylactic Antibiotics: The patient does not require prophylactic antibiotics. Prior Anticoagulants: The patient has taken no previous anticoagulant or antiplatelet agents. ASA Grade Assessment: II - A patient with mild systemic disease. After reviewing the risks and benefits, the patient was deemed in satisfactory condition to undergo the procedure. The anesthesia plan was to use moderate sedation / analgesia (conscious sedation). Immediately prior to administration of medications, the patient was re-assessed for adequacy to receive sedatives. The heart rate, respiratory rate, oxygen saturations, blood pressure, adequacy of pulmonary ventilation, and response to care were monitored throughout the procedure. The physical status of the patient was re-assessed after the procedure. After obtaining informed consent, the endoscope was passed under direct vision. Throughout the procedure, the patient's blood pressure, pulse, and oxygen saturations were monitored continuously. The Endoscope was introduced through the mouth, and advanced to the second part of duodenum. The upper GI endoscopy was accomplished without difficulty. The patient tolerated the procedure well. Scope In: 11:38:18 AM Scope Out: 11:47:31 AM Total Procedure Duration Time 0 hours 9 minutes 13 seconds Findings: LA Grade B (one or more mucosal breaks greater than 5 mm, not extending between the tops of two mucosal folds) esophagitis with no bleeding was found 35 to 38 cm from the incisors. Biopsies were taken with a cold forceps for histology. Verification of patient identification for the specimen was done. Estimated blood loss was minimal. A small hiatal hernia was present. No other significant abnormalities were identified in a careful examination of the stomach. A single 5 mm sessile polyp was found in the duodenal bulb. The polyp was removed with a cold snare. Polyp resection was incomplete. The resected tissue was retrieved. Impression: - LA Grade B reflux esophagitis. Biopsied. - Small hiatal hernia. - A single duodenal polyp. Incomplete resection. Resected tissue retrieved. Recommendation: - Await pathology results. - Repeat upper endoscopy for surveillance based on pathology results. - Continue present medications. Procedure Code(s): --- Professional --- 74365, Esophagogastroduodenoscopy, flexible, transoral; with removal of tumor(s), polyp(s), or other lesion(s) by snare technique 69116, 59,51, Esophagogastroduodenoscopy, flexible, transoral; with biopsy, single or multiple CPT copyright 2017 [employer] [place] [employer]. All rights reserved. The codes documented in this report are preliminary and upon executive compensation analyst review may be revised to meet current compliance requirements. Britton Spence DO 10/29/2022 11:54:59 AM This report has been signed electronically. Number of Addenda: 0 Note Initiated On: 10/29/2022 11:31 AM
--- NOTE | 2022-10-29 11:56 | OP.CCLET_ITS ---
10/29/2022 Crow Morel MD [address] [place] [address] Re : Upper GI endoscopy procedure for Shantell Rivera Dear Dr. Morel This procedure was performed on Saturday, October 29, 2022. My impressions and recommendations are as follows: Impressions : - LA Grade B reflux esophagitis. Biopsied. - Small hiatal hernia. - A single duodenal polyp. Incomplete resection. Resected tissue retrieved. Recommendations : - Await pathology results. - Repeat upper endoscopy for surveillance based on pathology results. - Continue present medications. My findings are described in the full procedure note, which is enclosed. If I can be of further assistance, please feel free to contact me at . Sincerely, Britton Spence, 10/29/2022 11:54:59 AM This report has been signed electronically.
[2022-10-29] MEDS: Na Biphos/Potassium Phosphate PACKET 1 PACKET PO ×3 (13:06→21:14)
[2022-10-29 13:26] LABS: Bedside Glucose 98 mg/dL (74-106)
--- NOTE | 2022-10-29 15:32 | CASEMGMT ---
CARLOS LIRIANO NOTE: PT/OT notes reviewed from yesterday. Therapy unable to work w/pt today d/t she was out of room for procedure. CARLOS LIRIANO to room. Introduced self and role. Pt declines having any discharge planning needs. She states she still does not want any HHC @ discharge and declines wanting a walker @ discharged, stating, I don't want it. Pt made aware, if she changes her mind once she returns home, to discuss HHC or DME w/her PCP. She voices understanding. Brianne CHAPMAN RN CM
--- NOTE | 2022-10-29 17:15 | PN.HOSP_ITS ---
Subjective Subjective Follow-up for GI symptoms, diarrhea, severe hypokalemia. Objective Data Objective Data Vital Signs: Vital Signs Temp Pulse Resp BP Pulse Ox O2 Del Method O2 Flow Rate 99.1 F 72 18 143/71 H 92 Room Air 2 10/29/22 15:51 10/29/22 15:51 10/29/22 15:51 10/29/22 15:51 10/29/22 15:51 10/29/22 15:51 10/29/22 15:51 Oxygen Flow Rate (L/min) 2 Oxygen Delivery Method Room Air Weight: 178 lb 2.136 oz Body Mass Index (BMI) 33.6 Intake & Output: Intake and Output for Last 24 Hours 10/27/22 10/28/22 10/29/22 23:59 23:59 23:59 Intake Total 2847.75 / 2847.75 2169.0 / 2169.0 1481.25 / 1481.25 Output Total 1300 / 1300 Balance 1547.75 / 1547.75 2169.0 / 2169.0 1481.25 / 1481.25 Medical Nutrition Assessment Dietitian: Malnutrition Criteria Met Start: 10/29/22 14:34 Freq: Status: Active Protocol: Document 10/29/22 14:34 AG (Rec: 10/29/22 14:34 [id number]) Nutrition Malnutrition Evidence of Malnutrition Exists Yes Malnutrition (severe): Acute Illness/Injury Evidenced By Suboptimal Energy Intake ( Severe),Weight Loss (Severe) Intake Problem Inadequate Oral Intake Etiology predicted related to gastroenteritis Signs/Symptoms as evidenced pt report of nausea and vomiting x 1 week Status Active Problem Clinical Problem Acute Disease or Injury Related Malnutrition Etiology severe, acute malnutrition related to inadequate energy intake w/ acute gastroenteritis Signs/Symptoms as evidenced by unintentional 6.9#/4% wt loss x 1 week; PO intake meeting <50% of estimated energy needs x 1 week Status Active Problem Recommendation Dietitian Recommendations/Changes recommend advance diet as tolerated to transitional; continue ensure clear 120mL 4x /day w/ medpass Lab / Micro Data Result Diagrams: 10/28/22 06:00 10/29/22 06:40 Labs: Laboratory Results - last 24 hr 10/28/22 23:58: POC Glucose 151 H 10/29/22 06:21: POC Glucose 127 H 10/29/22 06:40: Sodium 139, Potassium 2.8 L, Chloride 101, Carbon Dioxide 32.0, Anion Gap 6, BUN 4 L, Creatinine 0.81, Estim Creat Clear Calc 49.46, Est GFR (MDRD) Af Amer 90, Est GFR (MDRD) Non-Af 74, BUN/Creatinine Ratio 4.9 L, Glucose 128 H, Calcium 8.2 L, Phosphorus 2.8 10/29/22 13:03: POC Glucose 98 Micro: Microbiology 10/28/22 Unknown Stool Stool Lactoferrin - Final 10/28/22 Unknown Stool Enteric Bacteriology - Final Norovirus 10/28/22 Unknown Stool Stool Occult Blood (DARCI) - Final Occult Blood Positive 10/26/22 18:28 Urine, Clean Catch Urine Culture - Final Mixed Gram Positive Organisms Physical Exam Narrative net ui developer reviewed. Heart rate stays in 70s, sinus rhythm. Did not had sinus pause/significant bradycardia in last 24 hours. Potassium is still low. Patient had 2 times watery diarrhea in last 24 hours. Had EGD today. No abdominal pain, nausea or vomiting. Physical exam General: Alert, Oriented x3, Cooperative, fatigue. Obesity grade 1 BMI 33.7 kg/m? HEENT: Atraumatic, PERRLA, EOMI, Normocephalic Oral: Oral mucosa moist. No Gingival or Mucosal Lesions/ Ulcerations Neck: Scar kasey of left supraclavicular region of prior tunnel dialysis catheter supple, No JVD, Negative Carotid Bruits Lungs: Air entry diminished in bilateral lung bases. No crepitation/rhonchi Cardiovascular: Sinus rhythm 74 bpm. No murmurs. S1-S2 normal. Abdomen: Bowel Sounds Present, Soft, Non Tender, Non-Distended : No renal angle tenderness. No suprapubic tenderness. Extremities: No edema, Capillary Refill Less than 3 Seconds Skin: No rashes, No breakdown Musculoskeletal: No Tenderness to Palpation of Joints or Extremities, muscle strength 4+/5 at major joints of thighs and knees left lower extremity. Neurological: Cranial nerves II-XII grossly intact, DTR 2+/4 and Symmetrical, Neuro grossly intact Psych/Mental Status: Flat affect Assessment & Plan Assessment/Plan (1) Viral gastroenteritis: (2) Acute hypokalemia: PLAN: Plan 67-year-old female was admitted with nausea vomiting and diarrhea since Tuesday for last 3 days. Patient could not tolerate p.o. intake. CT abdomen and pelvis individually reviewed and shows mild thickening of ascending and proximal transverse colon. Lipase normal. No fever. 1. Acute gastroenterocolitis: Patient is being admitted to PCU. Telemetry monitoring for hypokalemia. Was admitted in observation, convert to inpatient. Start with clear liquid diet. Patient diarrhea just stopped on Tuesday and ther efore stool studies canceled. 10/27: Patient had nausea and vomiting and poor appetite. Advised oral intake soft diet. Reglan added on Zofran to improve nausea and gastric peristalsis. 10/28: Patient vomited after eating vegetable soup in dinner last night. Persistent nausea vomiting despite on Zofran and Reglan. Mild nonspecific lower quadrants abdominal pain. No guarding/DVT or surgical abdomen. GI consult requested and discussed with Dr. Spence. Since patient did not had diarrhea after admission but had 1 time yesterday therefore stool for enteric pathogen, occult blood and leukocytes and Giardia ordered. 10/29: Stool for enteric bacteriology panel positive for norovirus. Patient had EGD today. Found to have LA grade B reflux esophagitis, biopsied, small 8-70 and a single duodenal polyp with incomplete resection. She did not meet criteria for C. difficile. Patient's hospital course and norovirus related gastroenteritis discussed with the patient and her near the bedside. 2. Severe hypokalemia with transient severe bradycardia and missed heartbeat/arrhythmia: Patient had transient bradycardia arrhythmia. IV KCl 40 M EQ ordered. Serum magnesium and phosphorus are in normal range. 10/27: IV KCl 40 M EQ bolus ordered. Yesterday it improved to 3.7 but again d ropped to 2.9 today. Magnesium 2 g IV sulfate also ordered for severe arrhythmia, sinus bradycardia with sinus pause. Patient on oral 40 M EQ potassium twice daily. 2D echo is ordered. 10/28: K3.1 slightly better. 40 M EQ IV KCl ordered as increasing oral potassium might cause osmotic diarrhea therefore keep oral K 40 M EQ twice daily. Serum magnesium and phosphorus ordered. Bradycardia and sinus pause about 4.8 ms yesterday evening. Patient had also bradyarrhythmia heart rate in 40s and missed heartbeat between 9?10 AM.? Bradycardia is related to dry heaving/retching therefore most likely related to strong vagal response.? I talked to Dr. Yuan and went over the echo and her echo does not have significant findings to explain bradycardia.? Usually hypokalemia also does not cause sinus pause. Dr. Yuan suggested talk to Dr. Plasencia if ?he wants to be on the backup in case if she needs pacemaker.? I further discussed with Dr. Plasencia and we went over the clinical course and telemetry findings and sinus pause.? Overall it seems mainly related to strong vagal tone or Valsalva maneuver while she is having dry heaving or nausea.? Try to keep and maintain potassium and magnesium in optimal range.? He said she might need Holter monitor at the time of discharge. is reversible as she did not had structural or functional cardiac disease in the past. 10/29: Potassium is still very low, 2.8. Serum phosphorus level normal. IV KCl bolus ordered. Structural Analysis Engineer consulted for persistent hypokalemia despite replacement. Hypophosphatemia corrected. 2. CKD stage IIIb: Estimated creatinine clearance is 35 mill per minute, creatinine 1.16. Patient creatinine clearance was Less than 10 in January 2022 with high creatinine 9.48.She was last admitted in March 2022 for acute kidney injury on CKD stage IIIb and was seen by Dr. Layne, the retail center receptionist and was dialyzed temporarily. 10/28: Estimated creatinine clearance is 42 mill per minute, BUN/Creatinine 6/0.95. 3. History of diabetes mellitus type II: Glucose is 104 on BMP. Monitor blood sugars and and medium Accu-Cheks sliding scale 10/28: Glucose is reasonably controlled. 4. Depression?continue routine medication when able to tolerate p.o. 5. DVT prophylaxis?SCD Total time of the visit including total time spent in counseling or coordination of care, (more than 50% of the total time, spent in obtaining medical information from nurses and other ancillary care providers,explaining to the patient about labs, imaging, diagnosis and management of active complex medical conditions), severe electrolyte abnormality with arrhythmia, GI consult, review of labs and imaging is 40 minutes. Microbiology Past 72 Hours 10/28/22 Unknown Stool Stool Lactoferrin - Final 10/28/22 Unknown Stool Enteric Bacteriology - Final Norovirus 10/28/22 Unknown Stool Stool Occult Blood (DARCI) - Final Occult Blood Positive 10/26/22 18:28 Urine, Clean Catch Urine Culture - Final Mixed Gram Positive Organisms Laboratory Results 10/28/22 23:58: POC Glucose 151 H 10/28/22 : Stl Giardia Antigen Pending 10/29/22 06:21: POC Glucose 127 H 10/29/22 06:40: Sodium 139, Potassium 2.8 L, Chloride 101, Carbon Dioxide 32.0, Anion Gap 6, BUN 4 L, Creatinine 0.81, Estim Creat Clear Calc 49.46, Est GFR (MDRD) Af Amer 90, Est GFR (MDRD) Non-Af 74, BUN/Creatinine Ratio 4.9 L, Glucose 128 H, Calcium 8.2 L, Phosphorus 2.8 10/29/22 13:03: POC Glucose 98 Abdomen/Pelvis CT 10/25/22 22:18 IMPRESSION: Colitis of the ascending and proximal transverse colon. Circumferential thickening of the distal esophageal wall, possible esophagitis or GERD. Findings have decreased partially from the prior study. Electronically Signed: Wiley Montez MD at 23:19 EST Reading Location ID and State: [facility] / [place] Tel , Service support , Echocardiogram 10/27/22 15:47 Interpretation Summary The left ventricular ejection fraction is 65 %. No evidence for diastolic dysfunction. Catheter artifact noted in right atrium Mild (1+) pulmonic valve insufficiency. Charges/Coding Visit Charges Inpatient E&M: 64472 Subs Hosp L3
[2022-10-29] MEDS: Ensure Clear 120 ML Liquid PO (18:23)
[2022-10-29] MEDS: Potassium Chloride 10mEq/100mL 10 MEQ/100 ML IV.SOLN. 100 MEQ IV BOLUS ×3 (18:23→23:23)
[2022-10-29 18:50] LABS: Bedside Glucose 132 mg/dL (74-106)
[2022-10-29] MEDS: Atorvastatin Calcium 40 MG Tablet PO (21:14)
[2022-10-29 23:36] LABS: Bedside Glucose 205 mg/dL (74-106)
[2022-10-30] VITALS (10 sets, daily range): BP systolic 136–146; BP diastolic 61–66; PULSE 67–105; RESP 16–18; TEMP 36.7–36.9; O2SAT 93–98
[2022-10-30] MEDS: Potassium Chloride 10mEq/100mL 10 MEQ/100 ML IV.SOLN. 100 MEQ IV BOLUS (01:10)
[2022-10-30] MEDS: Metoclopramide 10 MG/2 ML Vial 5 MG IV ×3 (06:05→17:11)
[2022-10-30] MEDS: Levothyroxine 25 MCG TABLET PO (06:06)
[2022-10-30] MEDS: 0.9% Saline Lock 10 ML Syringe IV ×2 (06:07→13:10)
[2022-10-30] MEDS: Lactated Ringers 1,000 ML 75 ML IV ×2 (06:11→19:40)
[2022-10-30 06:55] LABS: Bedside Glucose 118 mg/dL (74-106)
--- NOTE | 2022-10-30 07:35 | NURSING ---
Documentation reviewed with Mark GONZALEZ.
[2022-10-30 08:11] LABS: Anion Gap 6 (5-15); BUN 5 mg/dL (7-18); BUN/Creat Ratio 6.3 RATIO (10-20); Calcium,Total 8.2 mg/dL (8.5-10.1); Chloride 101 mmol/L (98-107); EST Glomerular Filtration Rate 76 mL/min (>60); Est Glom Filt Rate - Afr Amer 92 mL/min (>60); Estimated Creatinine Clearance 50.08 ml/min; Glucose 125 mg/dL (74-106); Potassium 2.9 mmol/L (3.5-5.1); Sodium Level 138 mmol/L (136-145)
--- NOTE | 2022-10-30 09:06 | PCM.CONS.R ---
Assessment & Plan Assessment/Plan (1) Hypokalemia: PLAN: Hypokalemia is likely chronic since she was on potassium chloride supplementation at home. She tells me that she takes potassium chloride because she is on diuretic. Current exacerbation of hypokalemia is likely due to GI loss with diarrhea and renal loss due to vomiting. May take some time to catch up with the total body potassium loss. Magnesium level has been acceptable although I would recheck to be complete. In addition, the patient had been on mifepristone prior to admission for [place] syndrome. Restarting this medication may also help to attenuate further loss of potassium through the kidney from unopposed intracortical or effect of cortisol excess. Continue aggressive potassium replacement. We will add potassium chloride orally in addition to IV replacement. Recheck potassium and magnesium level tomorrow. (2) Metabolic alkalosis: PLAN: The patient has a history of metabolic alkalosis. Serum bicarbonate level appears to be between 35 to 43 mmol/L on review of record. Current serum bicarbonate level 31 mmol/L is lower than usual, but the patient has been having diarrhea. 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 Agree with restarting mifepristone. (3) Viral gastroenteritis: PLAN: The patient is diagnosed with norovirus infection. Treatment as per hospital medicine service. HPI Consult Data Date of Consult: 10/30/22 HPI Narrative Reason for Consultation: Persistent hypokalemia HPI Narrative: The patient is a 67-year-old woman with past history of type 2 diabetes mellitus, MIKAELA, depression, hypothyroidism, and hyperlipidemia. She presented to the hospital on 10/25/2022 3 days history of nausea, vomiting, and diarrhea. The patient was diagnosed with viral gastroenteritis. Nephrology is asked to see the patient because of persistent hypokalemia despite improvement in diarrhea and vomiting. Potassium level is 2.9 mmol/L today. The patient had been on potassium chloride supplementation as outpatient. Despite diarrhea, serum bicarbonate level has consistently been above 30 mmol/L. the patient also has chronic location of her serum bicarbonate level on review of the record. Her serum bicarbonate level was as high as 43 mmol/L on 08/26/2022. The patient tells me that she has a diagnosis of [place] syndrome which is being followed by her PCP, Dr. Morel. She is on mifepristone which was started sometime last year. She had been on this medication until admission to the hospital. Diarrhea has been improving and less frequent although she did have some loose BM this morning. She denies current nausea or vomiting. Appetite has improved although she does not like the food in the hospital. She denies chest pain, shortness of breath, or edema. [facility] Medical History BALDO (acute kidney injury) Anemia Anemia of chronic renal failure, stage 3 (moderate) Back problem Bone fracture Cataracts, bilateral Diabetes type 2, controlled Major depressive disorder, recurrent episode Obstructive sleep apnea on CPAP Pancreatitis Vision problems Wound of skin Home Medications atorvastatin 40 mg tablet 40 mg PO QHS Cholesterol 01/06/20 [History Last Taken 03/31/22] pantoprazole 40 mg tablet,delayed release 40 mg PO DAILY Gerd 09/10/20 [History Last Taken 04/01/22] calcium carbonate 600 mg-vitamin D3 10 mcg (400 unit) tablet 2 tab PO DAILY 03/08/22 [History Last Taken 04/01/22] levothyroxine 25 mcg tablet 25 mcg PO DAILY THYROID 04/02/22 [History Last Taken Unknown] furosemide 40 mg tablet 40 mg PO DAILY 07/16/22 [History Last Taken Unknown] insulin degludec 200 unit/mL (3 mL) subcutaneous pen (Tresiba FlexTouch U-200 insulin) 25 unit subcut BID 07/16/22 [History Last Taken Unknown] insulin lispro 100 unit/mL subcutaneous pen (Humalog KwikPen (U-100) Insulin) 22 unit subcut TIDWMEAL 07/16/22 [History Last Taken Unknown] mifepristone 300 mg tablet (Korlym) 300 mg PO BID 07/16/22 [History Last Taken Unknown] cholecalciferol (vitamin D3) 25 mcg (1,000 unit) capsule (Vitamin D3) 10/25/22 [History Last Taken Unknown] ferrous sulfate 325 mg (65 mg iron) tablet (iron) mg 10/25/22 [History Last Taken Unknown] potassium chloride 20 mEq tablet,extended release(part/cryst) 40 meq PO BID 10/25/22 [History Last Taken Unknown] Allergy/AdvReac Type Severity Reaction Status Date / Time adhesive tape AdvReac Intermediate Rash Verified 10/25/22 19:33 codeine AdvReac Intermediate Dizziness Verified 10/25/22 19:33 Family History Mother Diabetes Father Heart disease Hypertension Surgical History Hx of appendectomy Hx of cataract surgery Hx of cholecystectomy S/P hemodialysis catheter insertion S/P partial hysterectomy Status post ORIF of fracture of ankle Social History household members: spouse Smoking Status: Never smoker second hand exposure: No alcohol intake: never substance use type: does not use salas/faith: Denominational seatbelt use: always do you feel safe at home: Yes ROS ROS Narrative 09/06 ROS was done and is otherwise noncontributory. See HPI. Physical Exam Narrative General: Alert and oriented x3 in no apparent distress. HEENT: Normocephalic, atraumatic, mucous membrane moist without erythema, PERRLA, EOMI, intact hearing. Neck: Supple, no JVD. Heart: Normal S1, S2. No rubs, murmurs or gallops. Lungs: Clear to auscultation anteriorly. Abdomen: Normal bowel sound, soft, nontender, no guarding, no rebound. Extremities: No clubbing, cyanosis, or edema. Musculoskeletal: Full range of motion, no joint swelling. Skin: No rash, warm and dry. Neurologic: No focal neurologic deficits. Psychiatric: Normal mood and affect. Medical Records Data Medical Nutrition Assessment Dietitian: Malnutrition Criteria Met Start: 10/29/22 14:34 Freq: Status: Active Protocol: Document 10/29/22 14:34 (Rec: 10/29/22 14:34 [id number]) Nutrition Malnutrition Evidence of Malnutrition Exists Yes Malnutrition (severe): Acute Illness/Injury Evidenced By Suboptimal Energy Intake ( Severe),Weight Loss (Severe) Intake Problem Inadequate Oral Intake Etiology predicted related to gastroenteritis Signs/Symptoms as evidenced pt report of nausea and vomiting x 1 week Status Active Problem Clinical Problem Acute Disease or Injury Related Malnutrition Etiology severe, acute malnutrition related to inadequate energy intake w/ acute gastroenteritis Signs/Symptoms as evidenced by unintentional 6.9#/4% wt loss x 1 week; PO intake meeting <50% of estimated energy needs x 1 week Status Active Problem Recommendation Dietitian Recommendations/Changes recommend advance diet as tolerated to transitional; continue ensure clear 120mL 4x /day w/ medpass Lab / Micro Data Result Diagrams: 10/28/22 06:00 10/30/22 07:02 Labs: Laboratory Results - last 24 hr 10/29/22 13:03: POC Glucose 98 10/29/22 18:22: POC Glucose 132 H 10/29/22 21:17: POC Glucose 205 H 10/30/22 06:01: POC Glucose 118 H 10/30/22 07:02: Sodium 138, Potassium 2.9 L, Chloride 101, Carbon Dioxide 31.0, Anion Gap 6, BUN 5 L, Creatinine 0.80, Estim Creat Clear Calc 50.08, Est GFR (MDRD) Af Amer 92, Est GFR (MDRD) Non-Af 76, BUN/Creatinine Ratio 6.3 L, Glucose 125 H, Calcium 8.2 L Micro: Microbiology 10/28/22 Unknown Stool Stool Lactoferrin - Final 10/28/22 Unknown Stool Enteric Bacteriology - Final Norovirus 10/28/22 Unknown Stool Stool Occult Blood (DARCI) - Final Occult Blood Positive
[2022-10-30] MEDS: Enoxaparin 40 MG/0.4 ML Syringe SC (10:42)
--- NOTE | 2022-10-30 11:49 | PN.HOSP_ITS ---
Subjective Subjective Follow-up for severe hypokalemia. Patient had 2-3 times bowel movement. Potassium is still low. Heart rate is stabilized and 76 with no major bradycardia or sinus pause. Objective Data Objective Data Vital Signs: Vital Signs Temp Pulse Resp BP Pulse Ox O2 Del Method O2 Flow Rate 98.0 F 76 16 136/62 H 94 Room Air 2 10/30/22 10:48 10/30/22 10:48 10/30/22 10:48 10/30/22 10:48 10/30/22 10:48 10/30/22 10:48 10/30/22 05:59 Oxygen Flow Rate (L/min) 2 Oxygen Delivery Method Room Air Weight: 178 lb 2.136 oz Body Mass Index (BMI) 33.6 Intake & Output: Intake and Output for Last 24 Hours 10/28/22 10/29/22 10/30/22 23:59 23:59 23:59 Intake Total 2169.0 / 2169.0 1172.5 / 1172.5 Balance 2169.0 / 2169.0 1172.5 / 1172.5 Medical Nutrition Assessment Dietitian: Malnutrition Criteria Met Start: 10/29/22 14:34 Freq: Status: Active Protocol: Document 10/29/22 14:34 AG (Rec: 10/29/22 14:34 AG [id number]) Nutrition Malnutrition Evidence of Malnutrition Exists Yes Malnutrition (severe): Acute Illness/Injury Evidenced By Suboptimal Energy Intake ( Severe),Weight Loss (Severe) Intake Problem Inadequate Oral Intake Etiology predicted related to gastroenteritis Signs/Symptoms as evidenced pt report of nausea and vomiting x 1 week Status Active Problem Clinical Problem Acute Disease or Injury Related Malnutrition Etiology severe, acute malnutrition related to inadequate energy intake w/ acute gastroenteritis Signs/Symptoms as evidenced by unintentional 6.9#/4% wt loss x 1 week; PO intake meeting <50% of estimated energy needs x 1 week Status Active Problem Recommendation Dietitian Recommendations/Changes recommend advance diet as tolerated to transitional; continue ensure clear 120mL 4x /day w/ medpass Lab / Micro Data Result Diagrams: 10/28/22 06:00 10/30/22 07:02 Labs: Laboratory Results - last 24 hr 10/29/22 13:03: POC Glucose 98 10/29/22 18:22: POC Glucose 132 H 10/29/22 21:17: POC Glucose 205 H 10/30/22 06:01: POC Glucose 118 H 10/30/22 07:02: Sodium 138, Potassium 2.9 L, Chloride 101, Carbon Dioxide 31.0, Anion Gap 6, BUN 5 L, Creatinine 0.80, Estim Creat Clear Calc 50.08, Est GFR (MDRD) Af Amer 92, Est GFR (MDRD) Non-Af 76, BUN/Creatinine Ratio 6.3 L, Glucose 125 H, Calcium 8.2 L Micro: Microbiology 10/28/22 Unknown Stool Stool Lactoferrin - Final 10/28/22 Unknown Stool Enteric Bacteriology - Final Norovirus 10/28/22 Unknown Stool Stool Occult Blood (DARCI) - Final Occult Blood Positive 10/26/22 18:28 Urine, Clean Catch Urine Culture - Final Mixed Gram Positive Organisms Physical Exam Narrative 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 She had chronic hyponatremia. Discussed with the pharmacy may have discharged home medication regimen Physical exam General: Alert, Oriented x3, Cooperative, fatigue. Obesity grade 1 BMI 33.7 kg/m? HEENT: Atraumatic, PERRLA, EOMI, Normocephalic Oral: Oral mucosa moist. No Gingival or Mucosal Lesions/ Ulcerations Neck: Scar kasey of left supraclavicular region of prior tunnel dialysis catheter supple, No JVD, Negative Carotid Bruits Lungs: Air entry diminished in bilateral lung bases. No crepitation/rhonchi Cardiovascular: Sinus rhythm 74 bpm. No murmurs. S1-S2 normal. Abdomen: Bowel Sounds Present, Soft, Non Tender, Non-Distended : No renal angle tenderness. No suprapubic tenderness. Extremities: No edema, Capillary Refill Less than 3 Seconds Skin: No rashes, No breakdown Musculoskeletal: No Tenderness to Palpation of Joints or Extremities, muscle strength 4+/5 at major joints of thighs and knees left lower extremity. Neurological: Cranial nerves II-XII grossly intact, DTR 2+/4 and Symmetrical, Neuro grossly intact Psych/Mental Status: Flat affect Assessment & Plan Assessment/Plan (1) Viral gastroenteritis: (2) Acute hypokalemia: PLAN: Plan 67-year-old female was admitted with nausea vomiting and diarrhea since Tuesday for last 3 days. Patient could not tolerate p.o. intake. CT abdomen and pelvis individually reviewed and shows mild thickening of ascending and proximal transverse colon. Lipase normal. No fever. 1. Acute gastroenterocolitis: Patient is being admitted to PCU. Telemetry monitoring for hypokalemia. Was admitted in observation, convert to inpatient. Start with clear liquid diet. Patient diarrhea just stopped on Tuesday and therefore stool studies canceled. 10/27: Patient had nausea and vomiting and poor appetite. Advised oral intake soft diet. Reglan added on Zofran to improve nausea and gastric peristalsis. 10/28: Patient vomited after eating vegetable soup in dinner last night. Persistent nausea vomiting despite on Zofran and Reglan. Mild nonspecific lower quadrants abdominal pain. No guarding/DVT or surgical abdomen. GI consult requested and discussed with Dr. Spence. Since patient did not had diarrhea after admission but had 1 time yesterday therefore stool for enteric pathogen, occult blood and leukocytes and Giardia ordered. 10/29: Stool for enteric bacteriology panel positive for norovirus. Patient had EGD today. Found to have LA grade B reflux esophagitis, biopsied, small 8-70 and a single duodenal polyp with incomplete resection. She did not meet criteria for C. difficile. Patient's hospital course and norovirus related gastroenteritis discussed with the patient and her near the bedside. 10/30: No nausea or vomiting but mild loose bowel movement. 2. Severe hypokalemia with transient severe bradycardia and missed heartbeat/arrhythmia: Patient had transient bradycardia arrhythmia. IV KCl 40 M EQ ordered. Serum magnesium and phosphorus are in normal range. 10/27: IV KCl 40 M EQ bolus ordered. Yesterday it improved to 3.7 but again dropped to 2.9 today. Magnesium 2 g IV sulfate also ordered for severe arrhythmia, sinus bradycardia with sinus pause. Patient on oral 40 M EQ potassium twice daily. 2D echo is ordered. 10/28: K3.1 slightly better. 40 M EQ IV KCl ordered as increasing oral potassium might cause osmotic diarrhea therefore keep oral K 40 M EQ twice daily. Serum magnesium and phosphorus ordered. Bradycardia and sinus pause about 4.8 ms yesterday evening. Patient had also bradyarrhythmia heart rate in 40s and missed heartbeat between 9?10 AM.? Bradycardia is related to dry heaving/retching therefore most likely related to strong vagal response.? I talked to Dr. Yuan and went over the echo and her echo does not have significant findings to explain bradycardia.? Usually hypok alemia also does not cause sinus pause. Dr. Yuan suggested talk to Dr. Plasencia if ?he wants to be on the backup in case if she needs pacemaker.? I further discussed with Dr. Plasencia and we went over the clinical course and telemetry findings and sinus pause.? Overall it seems mainly related to strong vagal tone or Valsalva maneuver while she is having dry heaving or nausea.? Try to keep and maintain potassium and magnesium in optimal range.? He said she might need Holter monitor at the time of discharge. is reversible as she did not had structural or functional cardiac disease in the past. 10/29: Potassium is still very low, 2.8. Serum phosphorus level normal. IV KCl bolus ordered. Audio Visual Arts Director consulted for persistent hypokalemia despite replacement. Hypophosphatemia corrected. 10/30: Discussed with the quality assurance engineer. 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 2. CKD stage IIIb: Estimated creatinine clearance is 35 mill per minute, creatinine 1.16. Patient creatinine clearance was Less than 10 in January 2022 with high creatinine 9.48.She was last admitted in March 2022 for acute kidney injury on CKD stage IIIb and was seen by Dr. Layne, the quality assurance engineer and was dialyzed temporarily. 10/28: Estimated creatinine clearance is 42 mill per minute, BUN/Creatinine 6/0.95. [place]'s disease: Patient has history of Laura's disease but not mentioned in past medical history. PCP Dr. Morel takes care of Laura's disease. She does not follow carbon cleaner. Patient follows Dr. Layne and will follow as an outpatient. Patient home medication, nonformulary, mifepristone resumed. 3. History of diabetes mellitus type II: Glucose is 104 on BMP. Monitor blood sugars and and medium Accu-Cheks sliding scale 10/28: Glucose is reasonably controlled. Glucose is controlled: 4. Depression?continue routine medication when able to tolerate p.o. 5. DVT prophylaxis?SCD Total time of the visit including total time spent in counseling or coordination of care, (more than 50% of the total time, spent in obtaining medical information from nurses and other ancillary care providers,explaining to the patient about labs, imaging, diagnosis and management of active complex medical conditions), severe electrolyte abnormality with arrhythmia, GI consult, review of labs and imaging is 40 minutes. Microbiology Past 72 Hours 10/28/22 Unknown Stool Stool Lactoferrin - Final 10/28/22 Unknown Stool Enteric Bacteriology - Final Norovirus 10/28/22 Unknown Stool Stool Occult Blood (DARCI) - Final Occult Blood Positive 10/26/22 18:28 Urine, Clean Catch Urine Culture - Final Mixed Gram Positive Organisms Laboratory Results 10/29/22 18:22: POC Glucose 132 H 10/29/22 21:17: POC Glucose 205 H 10/30/22 06:01: POC Glucose 118 H 10/30/22 07:02: Sodium 138, Potassium 2.9 L, Chloride 101, Carbon Dioxide 31.0, Anion Gap 6, BUN 5 L, Creatinine 0.80, Estim Creat Clear Calc 50.08, Est GFR (MDRD) Af Amer 92, Est GFR (MDRD) Non-Af 76, BUN/Creatinine Ratio 6.3 L, Glucose 125 H, Calcium 8.2 L Abdomen/Pelvis CT 10/25/22 22:18 IMPRESSION: Colitis of the ascending and proximal transverse colon. Circumferential thickening of the distal esophageal wall, possible esophagitis or GERD. Findings have decreased partially from the prior study. Electronically Signed: Wiley Montez MD at 23:19 EST , Echocardiogram 10/27/22 15:47 Interpretation Summary The left ventricular ejection fraction is 65 %. No evidence for diastolic dysfunction. Catheter artifact noted in right atrium Mild (1+) pulmonic valve insufficiency. Charges/Coding Visit Charges Inpatient E&M: 54576 Subs Hosp L2
[2022-10-30] MEDS: Ferrous Sulfate 325 MG Tablet PO (13:09)
[2022-10-30] MEDS: Potassium Chloride Oral Tablet 20 MEQ 40 MEQ PO ×2 (13:09→17:09)
--- NOTE | 2022-10-30 15:24 | PCM.PROGNOTE ---
Subjective Subjective She underwent an upper endoscopy for intractable nausea vomiting. She was discovered to have severe erosive esophagitis requiring treatment endoscopically. She has not had any more nausea vomiting. She has not had any more abdominal pain or cramping. She was identified as having a [place] virus. Objective Data Objective Data Vital Signs: Vital Signs Temp Pulse Resp BP Pulse Ox O2 Del Method O2 Flow Rate 98.0 F 76 16 136/62 H 94 Room Air 2 10/30/22 10:48 10/30/22 10:48 10/30/22 10:48 10/30/22 10:48 10/30/22 10:48 10/30/22 10:48 10/30/22 09:00 Oxygen Flow Rate (L/min) 2 Oxygen Delivery Method Room Air Weight: 178 lb 2.136 oz Body Mass Index (BMI) 33.6 Intake & Output: Intake and Output for Last 24 Hours 10/28/22 10/29/22 10/30/22 23:59 23:59 23:59 Intake Total 2169.0 / 2169.0 1532.5 / 1532.5 Balance 2169.0 / 2169.0 1532.5 / 1532.5 Medical Nutrition Assessment Dietitian: Malnutrition Criteria Met Start: 10/29/22 14:34 Freq: Status: Active Protocol: Document 10/29/22 14:34 AG (Rec: 10/29/22 14:34 AG [id number]) Nutrition Malnutrition Evidence of Malnutrition Exists Yes Malnutrition (severe): Acute Illness/Injury Evidenced By Suboptimal Energy Intake ( Severe),Weight Loss (Severe) Intake Problem Inadequate Oral Intake Etiology predicted related to gastroenteritis Signs/Symptoms as evidenced pt report of nausea and vomiting x 1 week Status Active Problem Clinical Problem Acute Disease or Injury Related Malnutrition Etiology severe, acute malnutrition related to inadequate energy intake w/ acute gastroenteritis Signs/Symptoms as evidenced by unintentional 6.9#/4% wt loss x 1 week; PO intake meeting <50% of estimated energy needs x 1 week Status Active Problem Recommendation Dietitian Recommendations/Changes recommend advance diet as tolerated to transitional; continue ensure clear 120mL 4x /day w/ medpass Lab / Micro Data Result Diagrams: 10/28/22 06:00 10/30/22 07:02 Labs: Laboratory Results - last 24 hr 10/29/22 18:22: POC Glucose 132 H 10/29/22 21:17: POC Glucose 205 H 10/30/22 06:01: POC Glucose 118 H 10/30/22 07:02: Sodium 138, Potassium 2.9 L, Chloride 101, Carbon Dioxide 31.0, Anion Gap 6, BUN 5 L, Creatinine 0.80, Estim Creat Clear Calc 50.08, Est GFR (MDRD) Af Amer 92, Est GFR (MDRD) Non-Af 76, BUN/Creatinine Ratio 6.3 L, Glucose 125 H, Calcium 8.2 L Micro: Microbiology 10/28/22 Unknown Stool Stool Lactoferrin - Final 10/28/22 Unknown Stool Enteric Bacteriology - Final Norovirus 10/28/22 Unknown Stool Stool Occult Blood (DARCI) - Final Occult Blood Positive 10/26/22 18:28 Urine, Clean Catch Urine Culture - Final Mixed Gram Positive Organisms Physical Exam Narrative Physical exam General: Alert, Oriented x3, Cooperative, fatigue. Obesity grade 1 BMI 33.7 kg/m? HEENT: Atraumatic, PERRLA, EOMI, Normocephalic Oral: Oral mucosa moist. No Gingival or Mucosal Lesions/ Ulcerations Neck: Scar kasey of left supraclavicular region of prior tunnel dialysis catheter supple, No JVD, Negative Carotid Bruits Lungs: Air entry diminished in bilateral lung bases. No crepitation/rhonchi Cardiovascular: Sinus rhythm 74 bpm. No murmurs. S1-S2 normal. Abdomen: Bowel Sounds Present, Soft, Non Tender, Non-Distended : No renal angle tenderness. No suprapubic tenderness. Extremities: No edema, Capillary Refill Less than 3 Seconds Skin: No rashes, No breakdown Musculoskeletal: No Tenderness to Palpation of Joints or Extremities, muscle strength 4+/5 at major joints of thighs and knees left lower extremity. Neurological: Cranial nerves II-XII grossly intact, DTR 2+/4 and Symmetrical, Neuro grossly intact Psych/Mental Status: Flat affect Assessment & Plan Assessment/Plan (1) Viral gastroenteritis: PLAN: That would explain her CT findings of inflammation in her ileum and colon consistent with acute gastroenteritis. (2) Gastroesophageal reflux disease: PLAN: Gastroesophageal reflux disease causing thickening and GI bleeding in upper GI tract status post endoscopic treatment. She is doing very well recommend p.o. on 40 mg of Protonix twice a day for 8 weeks. Charges/Coding Visit Charges Inpatient E&M: 54992 Subs Hosp L2
[2022-10-30 16:40] LABS: Bedside Glucose 133 mg/dL (74-106)
[2022-10-30 19:26] LABS: Bedside Glucose 135 mg/dL (74-106)
[2022-10-30] MEDS: Atorvastatin Calcium 40 MG Tablet PO (21:54)
[2022-10-31] VITALS (10 sets, daily range): BP systolic 143–158; BP diastolic 64–66; PULSE 71–80; RESP 16–18; TEMP 36.1–37.4; O2SAT 93–95
[2022-10-31 00:50] LABS: Bedside Glucose 195 mg/dL (74-106)
[2022-10-31] MEDS: Metoclopramide 10 MG/2 ML Vial 5 MG IV ×3 (06:37→16:33)
[2022-10-31] MEDS: Levothyroxine 25 MCG TABLET PO (06:39)
[2022-10-31 07:20] LABS: Bedside Glucose 147 mg/dL (74-106)
[2022-10-31 08:06] LABS: Anion Gap 4 (5-15); BUN 4 mg/dL (7-18); BUN/Creat Ratio 5.2 RATIO (10-20); Calcium,Total 7.4 mg/dL (8.5-10.1); Chloride 101 mmol/L (98-107); Creatinine, Serum 0.76 mg/dL (0.55-1.02); EST Glomerular Filtration Rate 80 mL/min (>60); Est Glom Filt Rate - Afr Amer 96 mL/min (>60); Estimated Creatinine Clearance 40.07 ml/min; Glucose 145 mg/dL (74-106); Magnesium 1.2 mg/dL (1.6-2.6); Potassium 2.8 mmol/L (3.5-5.1); Sodium Level 138 mmol/L (136-145)
--- NOTE | 2022-10-31 08:21 | PN.HOSP_ITS ---
Subjective Subjective Feeling better. Objective Data Objective Data Vital Signs: Vital Signs Temp Pulse Resp BP Pulse Ox O2 Del Method O2 Flow Rate 36.8 C 76 18 143/66 H 93 Room Air 2 10/31/22 03:50 10/31/22 03:50 10/31/22 03:50 10/31/22 03:50 10/31/22 03:50 10/31/22 03:50 10/30/22 15:00 Oxygen Flow Rate (L/min) 2 Oxygen Delivery Method Room Air Weight: 80.8 kg Body Mass Index (BMI) 33.6 Intake & Output: Intake and Output for Last 24 Hours 10/29/22 10/30/22 10/31/22 23:59 23:59 23:59 Intake Total 3072.5 / 3072.5 60 Balance 307.5 / 3072.5 Medical Nutrition Assessment Dietitian: Malnutrition Criteria Met Start: 10/29/22 14:34 Freq: Status: Active Protocol: Document 10/29/22 14:34 AG (Rec: 10/29/22 14:34 [id number]) Nutrition Malnutrition Evidence of Malnutrition Exists Yes Malnutrition (severe): Acute Illness/Injury Evidenced By Suboptimal Energy Intake ( Severe),Weight Loss (Severe) Intake Problem Inadequate Oral Intake Etiology predicted related to gastroenteritis Signs/Symptoms as evidenced pt report of nausea and vomiting x 1 week Status Active Problem Clinical Problem Acute Disease or Injury Related Malnutrition Etiology severe, acute malnutrition related to inadequate energy intake w/ acute gastroenteritis Signs/Symptoms as evidenced by unintentional 6.9#/4% wt loss x 1 week; PO intake meeting <50% of estimated energy needs x 1 week Status Active Problem Recommendation Dietitian Recommendations/Changes recommend advance diet as tolerated to transitional; continue ensure clear 120mL 4x /day w/ medpass Lab / Micro Data Result Diagrams: 10/28/22 06:00 10/31/22 05:24 Labs: Laboratory Results - last 24 hr 10/30/22 13:04: POC Glucose 133 H 10/30/22 18:56: POC Glucose 135 H 10/31/22 00:05: POC Glucose 195 H 10/31/22 05:24: Sodium 138, Potassium 2.8 L, Chloride 101, Carbon Dioxide 33.0 H , Anion Gap 4 L, BUN 4 L, Creatinine 0.76, Estim Creat Clear Calc 40.07, Est GFR (MDRD) Af Amer 96, Est GFR (MDRD) Non-Af 80, BUN/Creatinine Ratio 5.2 L, Glucose 145 H, Calcium 7.4 L, Magnesium 1.2 L 10/31/22 06:35: POC Glucose 147 H Micro: Microbiology 10/28/22 Unknown Stool Stool Lactoferrin - Final 10/28/22 Unknown Stool Enteric Bacteriology - Final Norovirus 10/28/22 Unknown Stool Stool Occult Blood (DARCI) - Final Occult Blood Positive 10/26/22 18:28 Urine, Clean Catch Urine Culture - Final Mixed Gram Positive Organisms Physical Exam Const alert and no apparent distress Resp normal respiratory effort, no retractions, no use of accessory muscles and clear to auscultation bilaterally Cardio regular rate, regular rhythm, S1 normal heart sound and S2 normal heart sound Assessment & Plan Assessment/Plan (1) Viral gastroenteritis: PLAN: Acute gastroenterocolitis: Patient is being admitted to PCU. Telemetry monitoring for hypokalemia. Was admitted in observation, convert to inpatient. Start with clear liquid diet. Patient diarrhea just stopped on Tuesday and therefore stool studies canceled. 10/27: Patient had nausea and vomiting and poor appetite. Advised oral intake soft diet. Reglan added on Zofran to improve nausea and gastric peristalsis. 10/28: Patient vomited after eating vegetable soup in dinner last night. Persistent nausea vomiting despite on Zofran and Reglan. Mild nonspecific lower quadrants abdominal pain. No guarding/DVT or surgical abdomen. GI consult requested and discussed with Dr. Spence. Since patient did not had diarrhea after admission but had 1 time yesterday therefore stool for enteric pathogen, occult blood and leukocytes and Giardia ordered. 10/29: Stool for enteric bacteriology panel positive for norovirus. Patient had EGD today. Found to have LA grade B reflux esophagitis, biopsied, small 8-70 and a single duodenal polyp with incomplete resection. She did not meet criteria for C. difficile. Patient's hospital course and norovirus related gastroenteritis discussed with the patient and her near the bedside. 10/30: No nausea or vomiting but mild loose bowel movement. (2) Acute hypokalemia: PLAN: Severe hypokalemia with transient severe bradycardia and missed heartbeat/arrhythmia: Patient had transient bradycardia arrhythmia. IV KCl 40 M EQ ordered. Serum magnesium and phosphorus are in normal range. 10/27: IV KCl 40 M EQ bolus ordered. Yesterday it improved to 3.7 but again dropped to 2.9 today. Magnesium 2 g IV sulfate also ordered for severe arrhythmia, sinus bradycardia with sinus pause. Patient on oral 40 M EQ potassium twice daily. 2D echo is ordered. 10/28: K3.1 slightly better. 40 M EQ IV KCl ordered as increasing oral potassium might cause osmotic diarrhea therefore keep oral K 40 M EQ twice daily. Serum magnesium and phosphorus ordered. Bradycardia and sinus pause about 4.8 ms yesterday evening. Patient had also bradyarrhythmia heart rate in 40s and missed heartbeat between 9?10 AM.? Bradycardia is related to dry heaving/retching therefore most likely related to strong vagal response.? I talked to Dr. Yuan and went over the echo and her echo does not have significant findings to explain bradycardia.? Usually hypokalemia also does not cause sinus pause. Dr. Yuan suggested talk to Dr. Plasencia if ?he wants to be on the backup in case if she needs pacemaker.? I further discussed with Dr. Plasencia and we went over the clinical course and telemetry findings and sinus pause.? Overall it seems mainly related to strong vagal tone or Valsalva maneuver while she is having dry heaving or nausea.? Try to keep and maintain potassium and magnesium in optimal range.? He said she might need Holter monitor at the time of discharge. is reversible as she did not had structural or functional cardiac disease in the past. 10/29: Potassium is still very low, 2.8. Serum phosphorus level normal. IV KCl bolus ordered. Lithographer Apprentice consulted for persistent hypokalemia despite replacement. Hypophosphatemia corrected. 10/30: Discussed with the family readiness support assistant. Patient has [place]'s disease and she has chronic hyponatremia. 10/31: 2.8. Continue with 3 times daily oral replacement as well as administer IV potassium. (3) Hypomagnesemia: PLAN: complicates hypokalemia. replace monitor PLAN: Plan chronic conditions: * 2. CKD stage IIIb: Estimated creatinine clearance is 35 mill per minute, creatinine 1.16. Patient creatinine clearance was Less than 10 in January 2022 with high creatinine 9.48.She was last admitted in March 2022 for acute kidney injury on CKD stage IIIb and was seen by Dr. Layne, the family readiness support assistant and was dialyzed temporarily. 10/28: Estimated creatinine clearance is 42 mill per minute, BUN/Creatinine 6/0.95. * Laura's disease: Patient has history of Laura's disease but not mentioned in past medical history. PCP Dr. Morel takes care of Laura's disease. She does not follow hide and skin fleshing machine operator. Patient follows Dr. Layne and will follow as an outpatient. Patient home medication, nonformulary, mifepristone resumed. History of diabetes mellitus type II: Glucose is 104 on BMP. Monitor blood s ugars and and medium Accu-Cheks sliding scale 10/28: Glucose is reasonably controlled. Glucose is controlled: * Depression?continue routine medication when able to tolerate p.o. DVT prophylaxis?SCD Charges/Coding Visit Charges Inpatient E&M: 94039 Subs Hosp L2
[2022-10-31] MEDS: Potassium Chloride Oral Tablet 20 MEQ 40 MEQ PO ×3 (09:57→16:34)
[2022-10-31] MEDS: Enoxaparin 40 MG/0.4 ML Syringe SC (09:57)
[2022-10-31] MEDS: 0.9% Saline Lock 10 ML Syringe IV ×2 (09:59→16:34)
[2022-10-31] MEDS: Potassium Chloride 10mEq/100mL 10 MEQ/100 ML IV.SOLN. 100 MEQ IV BOLUS ×4 (10:05→14:34)
[2022-10-31] MEDS: Ferrous Sulfate 325 MG Tablet PO (11:07)
[2022-10-31] MEDS: Magnesium Sulfate 4gm/100mL 4 GM/100 ML IV.SOLN. IV (11:08)
--- NOTE | 2022-10-31 11:35 | PN.RENAL_ITS ---
Subjective Subjective Following for refractory hypokalemia. No diarrhea so far today. She denies nausea or vomiting either. Frustrated that she is still not yet discharged. Objective Data Objective Data Vital Signs: Vital Signs Temp Pulse Resp BP Pulse Ox O2 Del Method O2 Flow Rate 97.0 F L 80 16 158/64 H 95 Room Air 2 10/31/22 08:58 10/31/22 08:58 10/31/22 08:58 10/31/22 08:58 10/31/22 08:58 10/31/22 08:58 10/31/22 08:58 Oxygen Flow Rate (L/min) 2 Oxygen Delivery Method Room Air Weight: 80.8 kg Body Mass Index (BMI) 33.6 Intake & Output: Intake and Output for Last 24 Hours 10/29/22 10/30/22 10/31/22 23:59 23:59 23:59 Intake Total 3072.5 / 3072.5 1580 / 1580 Balance 3072.5 / 3072.5 1580 / 1580 Medical Nutrition Assessment Dietitian: Malnutrition Criteria Met Start: 10/29/22 14:34 Freq: Status: Active Protocol: Document 10/29/22 14:34 AG (Rec: 10/29/22 14:34 AG [id number]) Nutrition Malnutrition Evidence of Malnutrition Exists Yes Malnutrition (severe): Acute Illness/Injury Evidenced By Suboptimal Energy Intake ( Severe),Weight Loss (Severe) Intake Problem Inadequate Oral Intake Etiology predicted related to gastroenteritis Signs/Symptoms as evidenced pt report of nausea and vomiting x 1 week Status Active Problem Clinical Problem Acute Disease or Injury Related Malnutrition Etiology severe, acute malnutrition related to inadequate energy intake w/ acute gastroenteritis Signs/Symptoms as evidenced by unintentional 6.9#/4% wt loss x 1 week; PO intake meeting <50% of estimated energy needs x 1 week Status Active Problem Recommendation Dietitian Recommendations/Changes recommend advance diet as tolerated to transitional; continue ensure clear 120mL 4x /day w/ medpass Lab / Micro Data Result Diagrams: 10/28/22 06:00 10/31/22 05:24 Labs: Laboratory Results - last 24 hr 10/30/22 13:04: POC Glucose 133 H 10/30/22 18:56: POC Glucose 135 H 10/31/22 00:05: POC Glucose 195 H 10/31/22 05:24: Sodium 138, Potassium 2.8 L, Chloride 101, Carbon Dioxide 33.0 H , Anion Gap 4 L, BUN 4 L, Creatinine 0.76, Estim Creat Clear Calc 40.07, Est GFR (MDRD) Af Amer 96, Est GFR (MDRD) Non-Af 80, BUN/Creatinine Ratio 5.2 L, Glucose 145 H, Calcium 7.4 L, Magnesium 1.2 L 10/31/22 06:35: POC Glucose 147 H Micro: Microbiology 10/28/22 Unknown Stool Stool Lactoferrin - Final 10/28/22 Unknown Stool Enteric Bacteriology - Final Norovirus 10/28/22 Unknown Stool Stool Occult Blood (DARCI) - Final Occult Blood Positive 10/26/22 18:28 Urine, Clean Catch Urine Culture - Final Mixed Gram Positive Organisms Physical Exam Narrative General: Alert and oriented x3 in no apparent distress. Neck: Supple, no JVD. Heart: Normal S1, S2. No rubs, murmurs or gallops. Lungs: Clear to auscultation anteriorly. Abdomen: Normal bowel sound, soft, nontender, no guarding, no rebound. Extremities: No clubbing, cyanosis, or edema. Assessment & Plan Assessment/Plan (1) Hypokalemia: PLAN: Hypokalemia is likely chronic since she was on potassium chloride supplementation at home. She tells me that she normally takes potassium chloride because she is on diuretic. Current exacerbation of hypokalemia is likely due to GI loss with diarrhea and renal loss due to prior vomiting. Although diarrhea and vomiting have improved, it may take some time to catch up with the total body potassium loss. Most of the potassium deficit that is being replaced will enter the cell first. Extracellular potassium which we are measuring may not persistently increase to normal range for a few more days. Magnesium level has also been intermittently low due to GI loss. Hypomagnesemia can further interfere with ability to replete potassium. In addition, the patient had been on mifepristone prior to admission for [place] syndrome. Restarting this medication may also help to attenuate further loss of potassium through the kidney from unopposed mineralocorticoid effect of cortisol excess. Continue aggressive potassium replacement. We will add potassium chloride orally in addition to IV replacement. Agree with replacement of magnesium deficit. Recheck potassium and magnesium level tomorrow. (2) Hypomagnesemia: PLAN: Hypomagnesemia is also likely due to GI loss. See above. (3) Metabolic alkalosis: PLAN: The patient has a history of metabolic alkalosis. Serum bicarbonate level appears to be between 35 to 43 mmol/L on review of record. Current serum bicarbonate level 33 mmol/L is lower than usual baseline, but the patient had been having diarrhea. 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 Agree with restarting mifepristone. (4) Viral gastroenteritis: PLAN: The patient is diagnosed with [place] virus infection per my discussion with hospitalist. Treatment as per hospital medicine service.
[2022-10-31 11:46] LABS: Bedside Glucose 166 mg/dL (74-106)
[2022-10-31] MEDS: Ensure Clear 120 ML Liquid PO (14:33)
[2022-10-31] MEDS: Lactated Ringers 1,000 ML 75 ML IV (16:34)
[2022-10-31 18:50] LABS: Bedside Glucose 210 mg/dL (74-106)
[2022-10-31] MEDS: Atorvastatin Calcium 40 MG Tablet PO (22:11)
[2022-11-01 02:26] LABS: Bedside Glucose 154 mg/dL (74-106)
[2022-11-01 03:00] VITALS: PULSE 72
[2022-11-01 03:34] VITALS: BP 147/66; PULSE 90; RESP 18; TEMP 37.4; O2SAT 92
[2022-11-01] MEDS: Lactated Ringers 1,000 ML 75 ML IV (05:29)
[2022-11-01 05:38] LABS: Anion Gap 4 (5-15); BUN 3 mg/dL (7-18); BUN/Creat Ratio 4.2 RATIO (10-20); Calcium,Total 8.1 mg/dL (8.5-10.1); Chloride 102 mmol/L (98-107); Creatinine, Serum 0.72 mg/dL (0.55-1.02); EST Glomerular Filtration Rate 85 mL/min (>60); Est Glom Filt Rate - Afr Amer 103 mL/min (>60); Estimated Creatinine Clearance 40.07 ml/min; Glucose 147 mg/dL (74-106); Magnesium 1.9 mg/dL (1.6-2.6); Potassium 3.9 mmol/L (3.5-5.1); Sodium Level 137 mmol/L (136-145)
[2022-11-01] MEDS: Metoclopramide 10 MG/2 ML Vial 5 MG IV ×2 (06:10→13:34)
[2022-11-01] MEDS: Levothyroxine 25 MCG TABLET PO (06:10)
[2022-11-01 06:56] LABS: Bedside Glucose 145 mg/dL (74-106)
[2022-11-01 07:00] VITALS: PULSE 71
--- NOTE | 2022-11-01 09:27 | PCM.PN.HOSP ---
Subjective Subjective Feels great. No further diarrhea. Objective Data Objective Data Vital Signs: Vital Signs Temp Pulse Resp BP Pulse Ox O2 Del Method O2 Flow Rate 37.4 C H 90 18 147/66 H 92 Room Air 2 11/01/22 03:34 11/01/22 03:34 11/01/22 03:34 11/01/22 03:34 11/01/22 03:34 11/01/22 03:34 10/31/22 15:00 Oxygen Flow Rate (L/min) 2 Oxygen Delivery Method Room Air Weight: 80.8 kg Body Mass Index (BMI) 33.6 Intake & Output: Intake and Output for Last 24 Hours 10/30/22 10/31/22 11/01/22 23:59 23:59 23:59 Intake Total 3072.5 / 3072.5 2390 / 2390 968.75 / 968.75 Balance 3072.5 / 3072.5 2390 / 2390 968.75 / 968.75 Medical Nutrition Assessment Dietitian: Malnutrition Criteria Met Start: 10/29/22 14:34 Freq: Status: Active Protocol: Document 10/29/22 14:34 AG (Rec: 10/29/22 14:34 [id number]) Nutrition Malnutrition Evidence of Malnutrition Exists Yes Malnutrition (severe): Acute Illness/Injury Evidenced By Suboptimal Energy Intake ( Severe),Weight Loss (Severe) Intake Problem Inadequate Oral Intake Etiology predicted related to gastroenteritis Signs/Symptoms as evidenced pt report of nausea and vomiting x 1 week Status Active Problem Clinical Problem Acute Disease or Injury Related Malnutrition Etiology severe, acute malnutrition related to inadequate energy intake w/ acute gastroenteritis Signs/Symptoms as evidenced by unintentional 6.9#/4% wt loss x 1 week; PO intake meeting <50% of estimated energy needs x 1 week Status Active Problem Recommendation Dietitian Recommendations/Changes recommend advance diet as tolerated to transitional; continue ensure clear 120mL 4x /day w/ medpass Lab / Micro Data Result Diagrams: 10/28/22 06:00 11/01/22 04:34 Labs: Laboratory Results - last 24 hr 10/31/22 11:19: POC Glucose 166 H 10/31/22 18:30: POC Glucose 210 H 11/01/22 02:07: POC Glucose 154 H 11/01/22 04:34: Sodium 137, Potassium 3.9, Chloride 102, Carbon Dioxide 31.0, Anion Gap 4 L, BUN 3 L, Creatinine 0.72, Estim Creat Clear Calc 40.07, Est GFR (MDRD) Af Amer 103, Est GFR (MDRD) Non-Af 85, BUN/Creatinine Ratio 4.2 L, Glucose 147 H, Calcium 8.1 L, Magnesium 1.9 11/01/22 06:09: POC Glucose 145 H Micro: Microbiology 10/28/22 Unknown Stool Stool Lactoferrin - Final 10/28/22 Unknown Stool Enteric Bacteriology - Final Norovirus 10/28/22 Unknown Stool Stool Occult Blood (DARCI) - Final Occult Blood Positive 10/26/22 18:28 Urine, Clean Catch Urine Culture - Final Mixed Gram Positive Organisms Physical Exam Const alert and no apparent distress Resp normal respiratory effort, no retractions and no use of accessory muscles Cardio regular rate, regular rhythm, S1 normal heart sound and S2 normal heart sound GI normal to inspection, nondistended, normoactive bowel sounds, soft to palpation, non-tender and non-distended Assessment & Plan Assessment/Plan (1) Viral gastroenteritis: PLAN: Acute gastroenterocolitis: Patient is being admitted to PCU. Telemetry monitoring for hypokalemia. Was admitted in observation, convert to inpatient. Start with clear liquid diet. Patient diarrhea just stopped on Tuesday and therefore stool studies canceled. 10/27: Patient had nausea and vomiting and poor appetite. Advised oral intake soft diet. Reglan added on Zofran to improve nausea and gastric peristalsis. 10/28: Patient vomited after eating vegetable soup in dinner last night. Persistent nausea vomiting despite on Zofran and Reglan. Mild nonspecific lower quadrants abdominal pain. No guarding/DVT or surgical abdomen. GI consult requested and discussed with Dr. Spence. Since patient did not had diarrhea after admission but had 1 time yesterday therefore stool for enteric pathogen, occult blood and leukocytes and Giardia ordered. 10/29: Stool for enteric bacteriology panel positive for norovirus. Patient had EGD today. Found to have LA grade B reflux esophagitis, biopsied, small 8-70 and a single duodenal polyp with incomplete resection. She did not meet criteria for C. difficile. Patient's hospital course and norovirus related gastroenteritis discussed with the patient and her near the bedside. 10/30: No nausea or vomiting but mild loose bowel movement. (2) Acute hypokalemia: PLAN: Severe hypokalemia with transient severe bradycardia and missed heartbeat/arrhythmia: Patient had transient bradycardia arrhythmia. IV KCl 40 M EQ ordered. Serum magnesium and phosphorus are in normal range. 10/27: IV KCl 40 M EQ bolus ordered. Yesterday it improved to 3.7 but again dropped to 2.9 today. Magnesium 2 g IV sulfate also ordered for severe arrhythmia, sinus bradycardia with sinus pause. Patient on oral 40 M EQ potassium twice daily. 2D echo is ordered. 10/28: K3.1 slightly better. 40 M EQ IV KCl ordered as increasing oral potassium might cause osmotic diarrhea therefore keep oral K 40 M EQ twice daily. Serum magnesium and phosphorus ordered. Bradycardia and sinus pause about 4.8 ms yesterday evening. Patient had also bradyarrhythmia heart rate in 40s and missed heartbeat between 9?10 AM.? Bradycardia is related to dry heaving/retching therefore most likely related to strong vagal response.? I talked to Dr. Yuan and went over the echo and her echo does not have significant findings to explain bradycardia.? Usually hypokalemia also does not cause sinus pause. Dr. Yuan suggested talk to Dr. Plasencia if ?he wants to be on the backup in case if she needs pacemaker.? I further discussed with Dr. Plasencia and we went over the clinical course and telemetry findings and sinus pause.? Overall it seems mainly related to strong vagal tone or Valsalva maneuver while she is having dry heaving or nausea.? Try to keep and maintain potassium and magnesium in optimal range.? He said she might need Holter monitor at the time of discharge. is reversible as she did not had structural or functional cardiac disease in the past. 10/29: Potassium is still very low, 2.8. Serum phosphorus level normal. IV KCl bolus ordered. Solution Developer consulted for persistent hypokalemia despite replacement. Hypophosphatemia corrected. 10/30: Discussed with the general handling supervisor. 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 10/31: 2.8. Continue with 3 times daily oral replacement as well as administer IV potassium. 11/01: K 3.9. (3) Hypomagnesemia: PLAN: complicates hypokalemia. replace monitor PLAN: Plan chronic conditions: 2. CKD stage IIIb: Estimated creatinine clearance is 35 mill per minute, creatinine 1.16. Patient creatinine clearance was Less than 10 in January 2022 with high creatinine 9.48.She was last admitted in March 2022 for acute kidney injury on CKD stage IIIb and was seen by Dr. Layne, the general handling supervisor and was dialyzed temporarily. 10/28: Estimated creatinine clearance is 42 mill per minute, BUN/Creatinine 6/0.95. [place] disease: Patient has history of [place] disease but not mentioned in past medical history. PCP Dr. Morel takes care of [place] disease. She does not follow rock splitter. Patient follows Dr. Layne and will follow as an outpatient. Patient home medication, nonformulary, mifepristone resumed. History of diabetes mellitus type II: Glucose is 104 on BMP. Monitor blood sugars and and medium Accu-Cheks sliding scale 10/28: Glucose is reasonably controlled. Glucose is controlled: Depression?continue routine medication when able to tolerate p.o. DC home.
[2022-11-01] MEDS: Potassium Chloride Oral Tablet 20 MEQ 40 MEQ PO ×2 (09:53→13:34)
[2022-11-01] MEDS: Enoxaparin 40 MG/0.4 ML Syringe SC (09:54)
[2022-11-01 10:00] VITALS: BP 152/69; PULSE 76; RESP 18; TEMP 36.4; O2SAT 94
--- NOTE | 2022-11-01 11:15 | PCM.PN.REN ---
Subjective Subjective no new events Objective Data Objective Data Vital Signs: Vital Signs Temp Pulse Resp BP Pulse Ox O2 Del Method O2 Flow Rate 97.6 F L 76 18 152/69 H 94 Room Air 2 11/01/22 10:00 11/01/22 10:00 11/01/22 10:00 11/01/22 10:00 11/01/22 10:00 11/01/22 10:55 10/31/22 15:00 Oxygen Flow Rate (L/min) 2 Oxygen Delivery Method Room Air Weight: 80.8 kg Body Mass Index (BMI) 33.6 Intake & Output: Intake and Output for Last 24 Hours 10/30/22 10/31/22 11/01/22 23:59 23:59 23:59 Intake Total 3072.5 / 3072.5 2390 / 2390 1078.75 / 1078.75 Balance 3072.5 / 3072.5 2390 / 2390 1078.75 / 1078.75 Medical Nutrition Assessment Dietitian: Malnutrition Criteria Met Start: 10/29/22 14:34 Freq: Status: Active Protocol: Document 10/29/22 14:34 AG (Rec: 10/29/22 14:34 [id number]) Nutrition Malnutrition Evidence of Malnutrition Exists Yes Malnutrition (severe): Acute Illness/Injury Evidenced By Suboptimal Energy Intake ( Severe),Weight Loss (Severe) Intake Problem Inadequate Oral Intake Etiology predicted related to gastroenteritis Signs/Symptoms as evidenced pt report of nausea and vomiting x 1 week Status Active Problem Clinical Problem Acute Disease or Injury Related Malnutrition Etiology severe, acute malnutrition related to inadequate energy intake w/ acute gastroenteritis Signs/Symptoms as evidenced by unintentional 6.9#/4% wt loss x 1 week; PO intake meeting <50% of estimated energy needs x 1 week Status Active Problem Recommendation Dietitian Recommendations/Changes recommend advance diet as tolerated to transitional; continue ensure clear 120mL 4x /day w/ medpass Lab / Micro Data Result Diagrams: 10/28/22 06:00 11/01/22 04:34 Labs: Laboratory Results - last 24 hr 10/31/22 11:19: POC Glucose 166 H 10/31/22 18:30: POC Glucose 210 H 11/01/22 02:07: POC Glucose 154 H 11/01/22 04:34: Sodium 137, Potassium 3.9, Chloride 102, Carbon Dioxide 31.0, Anion Gap 4 L, BUN 3 L, Creatinine 0.72, Estim Creat Clear Calc 40.07, Est GFR (MDRD) Af Amer 103, Est GFR (MDRD) Non-Af 85, BUN/Creatinine Ratio 4.2 L, Glucose 147 H, Calcium 8.1 L, Magnesium 1.9 11/01/22 06:09: POC Glucose 145 H Micro: Microbiology 10/28/22 Unknown Stool Stool Lactoferrin - Final 10/28/22 Unknown Stool Enteric Bacteriology - Final Norovirus 10/28/22 Unknown Stool Stool Occult Blood (DARCI) - Final Occult Blood Positive 10/26/22 18:28 Urine, Clean Catch Urine Culture - Final Mixed Gram Positive Organisms Physical Exam Narrative General: Alert and oriented x3 in no apparent distress. Neck: Supple, no JVD. Heart: Normal S1, S2. No rubs, murmurs or gallops. Lungs: Clear to auscultation anteriorly. Abdomen: Normal bowel sound, soft, nontender, no guarding, no rebound. Extremities: No clubbing, cyanosis, or edema. Assessment & Plan Assessment/Plan (1) Hypokalemia: PLAN: Hypokalemia is likely chronic since she was on potassium chloride supplementation at home. Current exacerbation of hypokalemia is likely due to GI loss with diarrhea and renal loss due to prior vomiting. K is normalized now (2) Hypomagnesemia: PLAN: Hypomagnesemia is also likely due to GI loss. better (3) Metabolic alkalosis: PLAN: The patient has a history of metabolic alkalosis. Serum bicarbonate level appears to be between 35 to 43 mmol/L on review of record. Current serum bicarbonate level 33 mmol/L is lower than usual baseline, but the patient had been having diarrhea. (4) Viral gastroenteritis: PLAN: The patient is diagnosed with [place] virus
[2022-11-01 11:30] VITALS: PULSE 74
--- NOTE | 2022-11-01 13:03 | DCINST_ITS ---
Discharge Instructions Diet Discharge Diet: 2000 Calorie Control Diet Follow Up Care Test Results: Test results from this visit will be discussed in further detail at your follow- up appointment, if applicable. Discharge Plan Admission Admit Date/Time: 10/26/22 11:08 Primary Reason for Your Visit: gastroenteritis. hypokalemia Attending Provider: Bob Eisenberg Primary Care Provider: Crow Morel [facility] Providers: Elgin Mosqueda ; Clif Taylor ; Marcos Caceres Discharge Orders/Prescriptions Prescriptions: New potassium chloride 10 mEq tablet,ER particles/crystals 10 meq PO DAILY Qty: 30 0RF Continued Korlym 300 mg tablet 300 mg PO BID furosemide 40 mg tablet 40 mg PO DAILY Tresiba FlexTouch U-200 200 unit/mL (3 mL) insulin pen 25 unit subcut BID Label Comments: INJECT 60 UNITS SUBCUTANEOUSLY once DAILY AT BEDTIME insulin lispro [Humalog KwikPen Insulin] 100 unit/mL insulin pen 22 unit subcut TIDWMEAL calcium carbonate-vitamin D3 600 mg-10 mcg (400 unit) tablet 2 tab PO DAILY atorvastatin 40 MG tablet 40 mg PO QHS pantoprazole 40 MG tablet,delayed release (DR/EC) 40 mg PO DAILY levothyroxine 25 mcg tablet 25 mcg PO DAILY potassium chloride 20 mEq Tablet,Er Particles/Crystals 40 meq PO BID ferrous sulfate [iron] 325 mg (65 mg iron) Tablet cholecalciferol (vitamin D3) [Vitamin D3] 25 mcg (1,000 unit) Capsule Referrals / Follow Up: Crow Morel Chi, MD [Primary Care Provider] - Within 2 Weeks Disposition Disposition (needs filled in before D/C Order can be placed): Home, Self Care
--- NOTE | 2022-11-01 13:06 | PCM.DC.SUM ---
Providers Date of Admission: 10/26/22 Primary Care Physician: Dr. Crow Morel MD Consultations 10/28/22 07:42 Consult: Gastroenterology Routine Consulting Provider: [facility] Reason for Consult: Persistant N/V, intermittent diarrhea, abd pain EMERGENT Consult: No Notified: Yes Date Notified: 10/28/22 Time Notified: 07:43 Method of Notification: Verbal 10/29/22 17:15 Consult: Nephrology Routine Consulting Provider: Clif Taylor Reason for Consult: severe hypokalemia, persistant x4 days despite replacement EMERGENT Consult: No Notified: Yes Date Notified: 10/29/22 Time Notified: 17:16 Method of Notification: Verbal Reason For Visit: GASTROENTERITIS, HYPOKALEMIA Diagnosis Discharge Diagnosis (1) Viral gastroenteritis: Status: Acute Code(s): A08.4 - Viral intestinal infection, unspecified Plan: Acute gastroenterocolitis: Patient is being admitted to PCU. Telemetry monitoring for hypokalemia. Was admitted in observation, convert to inpatient. Start with clear liquid diet. Patient diarrhea just stopped on Tuesday and therefore stool studies canceled. 10/27: Patient had nausea and vomiting and poor appetite. Advised oral intake soft diet. Reglan added on Zofran to improve nausea and gastric peristalsis. 10/28: Patient vomited after eating vegetable soup in dinner last night. Persistent nausea vomiting despite on Zofran and Reglan. Mild nonspecific lower quadrants abdominal pain. No guarding/DVT or surgical abdomen. GI consult requested and discussed with Dr. Spence. Since patient did not had diarrhea after admission but had 1 time yesterday therefore stool for enteric pathogen, occult blood and leukocytes and Giardia ordered. 10/29: Stool for enteric bacteriology panel positive for norovirus. Patient had EGD today. Found to have LA grade B reflux esophagitis, biopsied, small 8-70 and a single duodenal polyp with incomplete resection. She did not meet criteria for C. difficile. Patient's hospital course and norovirus related gastroenteritis discussed with the patient and her near the bedside. 10/30: No nausea or vomiting but mild loose bowel movement. (2) Acute hypokalemia: Status: Acute Code(s): E87.6 - Hypokalemia Plan: Severe hypokalemia with transient severe bradycardia and missed heartbeat/arrhythmia: Patient had transient bradycardia arrhythmia. IV KCl 40 M EQ ordered. Serum magnesium and phosphorus are in normal range. 10/27: IV KCl 40 M EQ bolus ordered. Yesterday it improved to 3.7 but again dropped to 2.9 today. Magnesium 2 g IV sulfate also ordered for severe arrhythmia, sinus bradycardia with sinus pause. Patient on oral 40 M EQ potassium twice daily. 2D echo is ordered. 10/28: K3.1 slightly better. 40 M EQ IV KCl ordered as increasing oral potassium might cause osmotic diarrhea therefore keep oral K 40 M EQ twice daily. Serum magnesium and phosphorus ordered. Bradycardia and sinus pause about 4.8 ms yesterday evening. Patient had also bradyarrhythmia heart rate in 40s and missed heartbeat between 9?10 AM.? Bradycardia is related to dry heaving/retching therefore most likely related to strong vagal response.? I talked to Dr. Yuan and went over the echo and her echo does not have significant findings to explain bradycardia.? Usually hypokalemia also does not cause sinus pause. Dr. Yuan suggested talk to Dr. Plasencia if ?he wants to be on the backup in case if she needs pacemaker.? I further discussed with Dr. Plasencia and we went over the clinical course and telemetry findings and sinus pause.? Overall it seems mainly related to strong vagal tone or Valsalva maneuver while she is having dry heaving or nausea.? Try to keep and maintain potassium and magnesium in optimal range.? He said she might need Holter monitor at the time of discharge. is reversible as she did not had structural or functional cardiac disease in the past. 10/29: Potassium is still very low, 2.8. Serum phosphorus level normal. IV KCl bolus ordered. 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 Hypophosphatemia corrected. 10/30: Discussed with the [employer] administrator. 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 10/31: 2.8. Continue with 3 times daily oral replacement as well as administer IV potassium. 11/01: K 3.9. (3) Hypomagnesemia: Status: Acute Code(s): E83.42 - Hypomagnesemia Plan: complicates hypokalemia. replace monitor Plan chronic conditions: 2. CKD stage IIIb: Estimated creatinine clearance is 35 mill per minute, creatinine 1.16. Patient creatinine clearance was Less than 10 in January 2022 with high creatinine 9.48.She was last admitted in March 2022 for acute kidney injury on CKD stage IIIb and was seen by Dr. Layne, the [employer] administrator and was dialyzed temporarily. 10/28: Estimated creatinine clearance is 42 mill per minute, BUN/Creatinine 6/0.95. Laura's disease: Patient has history of [place]'s disease but not mentioned in past medical history. PCP Dr. Morel takes care of Laura's disease. 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 Patient follows Dr. Layne and will follow as an outpatient. Patient home medication, nonformulary, mifepristone resumed. History of diabetes mellitus type II: Glucose is 104 on BMP. Monitor blood sugars and and medium Accu-Cheks sliding scale 10/28: Glucose is reasonably controlled. Glucose is controlled: Depression?continue routine medication when able to tolerate p.o. DC home. Medications at Discharge Home Medications atorvastatin 40 mg tablet 40 mg PO QHS Cholesterol 01/06/20 pantoprazole 40 mg tablet,delayed release 40 mg PO DAILY Gerd 09/10/20 calcium carbonate 600 mg-vitamin D3 10 mcg (400 unit) tablet 2 tab PO DAILY 03/08/22 levothyroxine 25 mcg tablet 25 mcg PO DAILY THYROID 04/02/22 furosemide 40 mg tablet 40 mg PO DAILY 07/16/22 insulin degludec 200 unit/mL (3 mL) subcutaneous pen (Tresiba FlexTouch U-200 insulin) 25 unit subcut BID 07/16/22 insulin lispro 100 unit/mL subcutaneous pen (Humalog KwikPen (U-100) Insulin) 22 unit subcut TIDWMEAL 07/16/22 mifepristone 300 mg tablet (Korlym) 300 mg PO BID 07/16/22 cholecalciferol (vitamin D3) 25 mcg (1,000 unit) capsule (Vitamin D3) 10/25/22 ferrous sulfate 325 mg (65 mg iron) tablet (iron) mg 10/25/22 potassium chloride 20 mEq tablet,extended release(part/cryst) 40 meq PO BID 10/25/22 potassium chloride 10 mEq tablet,extended release(part/cryst) 10 meq PO DAILY #30 tabs 11/01/22 Hospital Course Operations None Procedures None Summary of Care Provided Minutes Spent on Discharge: 28 Medical Records Data Medical Nutrition Assessment Dietitian: Malnutrition Criteria Met Start: 10/29/22 14:34 Freq: Status: Active Protocol: Document 10/29/22 14:34 AG (Rec: 10/29/22 14:34 AG [id number]) Nutrition Malnutrition Evidence of Malnutrition Exists Yes Malnutrition (severe): Acute Illness/Injury Evidenced By Suboptimal Energy Intake ( Severe),Weight Loss (Severe) Intake Problem Inadequate Oral Intake Etiology predicted related to gastroenteritis Signs/Symptoms as evidenced pt report of nausea and vomiting x 1 week Status Active Problem Clinical Problem Acute Disease or Injury Related Malnutrition Etiology severe, acute malnutrition related to inadequate energy intake w/ acute gastroenteritis Signs/Symptoms as evidenced by unintentional 6.9#/4% wt loss x 1 week; PO intake meeting <50% of estimated energy needs x 1 week Status Active Problem Recommendation Dietitian Recommendations/Changes recommend advance diet as tolerated to transitional; continue ensure clear 120mL 4x /day w/ medpass Weight / BMI Weight Weight: 80.8 kg Body Mass Index (BMI) 33.6 ABG / Lab / Microbiology Data Result Diagrams: 10/28/22 06:00 11/01/22 04:34 Laboratory: Laboratory Results - last 24 hr 10/31/22 18:30: POC Glucose 210 H 11/01/22 02:07: POC Glucose 154 H 11/01/22 04:34: Sodium 137, Potassium 3.9, Chloride 102, Carbon Dioxide 31.0, Anion Gap 4 L, BUN 3 L, Creatinine 0.72, Estim Creat Clear Calc 40.07, Est GFR (MDRD) Af Amer 103, Est GFR (MDRD) Non-Af 85, BUN/Creatinine Ratio 4.2 L, Glucose 147 H, Calcium 8.1 L, Magnesium 1.9 11/01/22 06:09: POC Glucose 145 H Microbiology: Microbiology 10/28/22 Unknown Stool Stool Lactoferrin - Final 10/28/22 Unknown Stool Enteric Bacteriology - Final Norovirus 10/28/22 Unknown Stool Stool Occult Blood (DARCI) - Final Occult Blood Positive 10/26/22 18:28 Urine, Clean Catch Urine Culture - Final Mixed Gram Positive Organisms D/C Instructions Discharge Diet: 2000 Calorie Control Diet Meaningful Use Info Meaningful Use Diagnoses (Choose all that apply): None applicable Discharge Plan Admission Admit Date/Time: 10/26/22 11:08 Primary Reason for Your Visit: gastroenteritis. hypokalemia Attending Provider: Bob Eisenberg Primary Care Provider: Crow Morel Chi Consulting Providers: Elgin Mosqueda ; Clif Taylor ; Marcos Caceres Discharge Orders/Prescriptions Prescriptions: New potassium chloride 10 mEq tablet,ER particles/crystals 10 meq PO DAILY Qty: 30 0RF Continued Korlym 300 mg tablet 300 mg PO BID furosemide 40 mg tablet 40 mg PO DAILY Tresiba FlexTouch U-200 200 unit/mL (3 mL) insulin pen 25 unit subcut BID Label Comments: INJECT 60 UNITS SUBCUTANEOUSLY once DAILY AT BEDTIME insulin lispro [Humalog KwikPen Insulin] 100 unit/mL insulin pen 22 unit subcut TIDWMEAL calcium carbonate-vitamin D3 600 mg-10 mcg (400 unit) tablet 2 tab PO DAILY atorvastatin 40 MG tablet 40 mg PO QHS pantoprazole 40 MG tablet,delayed release (DR/EC) 40 mg PO DAILY levothyroxine 25 mcg tablet 25 mcg PO DAILY potassium chloride 20 mEq Tablet,Er Particles/Crystals 40 meq PO BID ferrous sulfate [iron] 325 mg (65 mg iron) Tablet cholecalciferol (vitamin D3) [Vitamin D3] 25 mcg (1,000 unit) Capsule Referrals / Follow Up: Crow Morel Chi, MD [Primary Care Provider] - Within 2 Weeks Disposition Disposition (needs filled in before D/C Order can be placed): Home, Self Care Charges/Coding Visit Charges Inpatient E&M: 69681 Disch Hosp
--- NOTE | 2022-11-01 13:32 | CASEMGMT ---
This RN CM to room to discuss d/c plan and pt declines any further therapy and WW at this time. Pt states no concerns with going home at discharge. Pt voices no further questions/concerns/needs. SStaten RN CM
[2022-11-01] MEDS: 0.9% Saline Lock 10 ML Syringe IV (13:34)
[2022-11-01] MEDS: Ferrous Sulfate 325 MG Tablet PO (13:34)
[2022-11-01 13:46] VITALS: BP 157/77; PULSE 78; RESP 18; O2SAT 97
[2022-11-01 14:11] LABS: Bedside Glucose 212 mg/dL (74-106)
[2022-11-02 11:50] LABS: Giardia Lamblia, Stool EIA Negative (Negative)
== END 2022-11-01 16:30 | disposition home or self-care (01) | DRG 641 ==
LOC: ED 23:12 → PCU 23:34
PROVIDERS: Internal Medicine; Internal Medicine Gastroenterology; Admitting Provider Family Medicine; Emergency Provider Emergency Medicine; PCP Family Medicine Geriatric Medicine
PROC: 0DJ08ZZ Inspection of Upper Intestinal Tract, Via Natural or Artificial Opening Endoscopic (ICD-10-PCS; CPT 43235; principal; 2022-10-29 11:25)
DX: E87.6 Hypokalemia (principal); N17.9 Acute kidney failure, unspecified; A08.11 Acute gastroenteropathy due to Norwalk agent; E87.3 Alkalosis; D63.1 Anemia in chronic kidney disease; E11.22 Type 2 diabetes mellitus with diabetic chronic kidney disease; Z79.4 Long term (current) use of insulin; N18.32 Chronic kidney disease, stage 3b; E87.1 Hypo-osmolality and hyponatremia; I49.8 Other specified cardiac arrhythmias; K44.9 Diaphragmatic hernia without obstruction or gangrene; K21.00 Gastro-esophageal reflux disease with esophagitis, without bleeding; K31.7 Polyp of stomach and duodenum; E83.42 Hypomagnesemia; F32.A Depression, unspecified; B34.8 Other viral infections of unspecified site; Z86.39 Personal history of other endocrine, nutritional and metabolic disease; Z87.448 Personal history of other diseases of urinary system
CPT/HCPCS: 36415; 74177; 80048; 80053; 81001; 82274; 82962; 83630; 83690; 83735; 84100; 84132; 85025; 87086; 87088; 87329; 87506; 88305; 88313; 93306; 97162; 97166; 97530; 97535; 97803; 99283; J7030; J7040; J7120; Q9967; A4216; J2405

== ENCOUNTER → 2022-12-14 | Outpatient (CLI) | payer MEDICARE, BC, SELFPAY ==
[2022-12-14 14:53] LABS: Albumin, Serum 3.1 g/dL (3.2-5.0); BUN 14 mg/dL (7-18); BUN/Creat Ratio 9.1 RATIO (10-20); Calcium,Total 8.8 mg/dL (8.5-10.1); Chloride 96 mmol/L (98-107); Creatinine, Serum 1.54 mg/dL (0.55-1.02); EST Glomerular Filtration Rate 35 mL/min (>60); Est Glom Filt Rate - Afr Amer 43 mL/min (>60); Glucose 326 mg/dL (74-106); Phosphorus 2.9 mg/dL (2.5-4.9); Potassium 3.4 mmol/L (3.5-5.1); Sodium Level 139 mmol/L (136-145)
== END | disposition home or self-care (01) ==
LOC: LAB 13:41
PROVIDERS: PCP Family Medicine Geriatric Medicine; Referring Provider Internal Medicine Nephrology; Visit Provider Internal Medicine Nephrology
DX: N18.31 Chronic kidney disease, stage 3a (principal); N17.9 Acute kidney failure, unspecified
CPT/HCPCS: 36415; 80069

== ENCOUNTER → 2022-12-28 | Outpatient (CLI) | payer MEDICARE, BC, SELFPAY ==
[2022-12-28 13:09] LABS: Absolute Lymphocyte Count 1.67 X10^3/uL (0.83-4.51); Absolute Neutrophil Count 5.7 X10^3/uL (2.0-7.7); Basophil# 0.04 X10^3/uL; Basophil% 0.5 % (0-1); Eosinophil# 0.13 X10^3/uL; Eosinophils% 1.6 % (0-5); Hematocrit 39.3 % (37-47); Hemoglobin 13.4 g/dL (12.0-15.0); Lymphocyte # 1.67 X10^3/ul (0.83-4.51); Lymphocyte % 20.6 % (19-41); Mean Corp Hgb Conc 34.1 g/dL (32-36); Mean Corpuscular Hgb 29.5 pg (27.0-32.0); Mean Corpuscular Volume 86.4 fL (81-99); Monocyte# 0.57 X10^3/uL; NRBC Flagged by Analyzer 0 % (0-5); Neutrophil # 5.69 X10^3/uL (2.7-7.7); Neutrophil % 70.1 % (47-70); Platelet Count 297 K/mm3 (150-450); RBC Distribution Width CV 14.6 % (11.6-14.6); RBC Distribution Width SD 45.5 fl (35.1-43.9); Red Blood Count 4.55 M/mm3 (4.2-5.4); White Blood Count 8.1 K/mm3 (4.4-11.0)
[2022-12-28 13:37] LABS: Vitamin D,25 Hydroxy 29.2 ng/mL
[2022-12-28 13:45] LABS: ALB/GLOB Ratio 0.9 RATIO (0.9-2.4); AST(SGOT) 17 U/L (15-37); Alanine Aminotransfer ALT/SGPT 14 U/L (13-56); Albumin, Serum 3.4 g/dL (3.2-5.0); Alkaline Phosphatase 88 U/L (45-117); Anion Gap 6 (5-15); BUN 11 mg/dL (7-18); BUN/Creat Ratio 8.9 RATIO (10-20); Calcium,Total 9.4 mg/dL (8.5-10.1); Chloride 103 mmol/L (98-107); Creatinine, Serum 1.23 mg/dL (0.55-1.02); EST Glomerular Filtration Rate 46 mL/min (>60); Est Glom Filt Rate - Afr Amer 56 mL/min (>60); Globulin 3.8 g/dL (2.2-4.2); Glucose 121 mg/dL (74-106); Potassium 4.2 mmol/L (3.5-5.1); Protein, Total 7.2 g/dL (6.4-8.2); Sodium Level 143 mmol/L (136-145)
== END | disposition home or self-care (01) ==
LOC: POLAB3 10:52
PROVIDERS: PCP Family Medicine Geriatric Medicine; Visit Provider Family Medicine Geriatric Medicine
DX: E55.9 Vitamin D deficiency, unspecified (principal); E11.65 Type 2 diabetes mellitus with hyperglycemia; R53.83 Other fatigue
CPT/HCPCS: 36415; 80053; 82306; 84443; 85025

== ENCOUNTER 2023-01-25 15:16 | Emergency (ER) | payer MEDICARE, BC, SELFPAY ==
[2023-01-25 15:17] VITALS: BP 121/50; PULSE 62; RESP 15; TEMP 36.9; O2SAT 94
--- NOTE | 2023-01-25 15:33 | EDS_ITS ---
HPI History of Present Illness Chief Complaint: General Illness Detail of Chief Complaint: Abdominal pain, nausea and vomiting, loss of appetite and not feeling well Informant: patient and spouse/S.O. Onset/Context/Timing Onset: Days (Onset of illness January 19) Context: Sudden Onset Timing: Continuous Quality: Not feeling well with nausea and vomiting and vague epigastric/upper abdomi Location: Epigastric/upper abdominal Current Severity: Mild Maximum Severity: Moderate Worsened by: Nothing Relieved by: Nothing Associated Symptoms Associated Symptoms: Not feeling well, weak, fatigue Narrative Narrative: Patient is a 67-year-old woman with history of type 1 diabetes, esophagitis documented on CAT scan and EGD, hypercholesterolemia, iron deficiency anemia and history of acute kidney injury requiring dialysis in the remote past. states she became ill abruptly. Patient states she does not feel well. She reports nausea and vomiting. She has not vomited much. She states she has had no appetite. She has had decreased urine output. She denies black or maroon-colored stool. She denies coffee-ground or blood in her emesis. She denies headache, visual, ocular auditory symptoms. She denies cardiac or respiratory symptoms. She states she is status postcholecystectomy, appendectomy and hysterectomy. She denies dysuria, frequency, urgency or hematuria. She denies back pain. Prior similar symptoms: No Recent Illness/Hospitalization: [facility] Medical History BALDO (acute kidney injury) Anemia Anemia Anemia of chronic renal failure, stage 3 (moderate) Back problem BMI 37.0-37.9, adult Bone fracture Cataracts, bilateral Chronic kidney disease, stage 3a Chronic renal disease, stage 3, moderately decreased glomerular filtration rate (GFR) between 30-59 mL/min/1.73 square meter Laura syndrome Debility Depression Diabetes mellitus Diabetes mellitus type 2 in obese Diabetes type 2, controlled Edema Gastroesophageal reflux disease History of chronic kidney disease History of diabetes mellitus Hyperlipidemia Hyperlipidemia associated with type 2 diabetes mellitus Iron deficiency anemia due to chronic blood loss Major depressive disorder, recurrent episode Malaise and fatigue Morbid obesity Nonhealing nonsurgical wound with fat layer exposed Obstructive sleep apnea on CPAP Obstructive sleep apnea syndrome Osteopenia Pancreatitis Vision problems Wound of skin Home Medications atorvastatin 40 mg tablet 40 mg PO QHS Cholesterol 02/09/20 [History Last Taken 01/24/23] pantoprazole 40 mg tablet,delayed release 40 mg PO DAILY Gerd 09/10/20 [History Last Taken 01/25/23] calcium carbonate 600 mg-vitamin D3 10 mcg (400 unit) tablet 1 tab PO DAILY SUPPLEMENT 03/08/22 [History Last Taken 01/25/23] furosemide 40 mg tablet 40 mg PO DAILY FLUID 07/16/22 [History Last Taken 01/25/23] insulin degludec 200 unit/mL (3 mL) subcutaneous pen (Tresiba FlexTouch U-200 insulin) 33 unit subcut BID DIABETES 07/16/22 [History Last Taken 3 Days Ago ~01/22/23] insulin lispro 100 unit/mL subcutaneous pen (Humalog KwikPen (U-100) Insulin) 22 unit subcut TIDCM DIABETES 07/16/22 [History Last Taken 3 Days Ago ~01/22/23] mifepristone 300 mg tablet (Korlym) 300 mg PO BID BLOOD SUGAR 07/16/22 [History Last Taken 01/25/23] potassium chloride 20 mEq tablet,extended release(part/cryst) 40 meq PO TID SUPPLEMENT 10/25/22 [History Last Taken 01/25/23] empagliflozin 10 mg tablet (Jardiance) 10 mg PO DAILY BLOOD SUGAR 01/25/23 [History Last Taken 01/25/23] ferrous fumarate-vit C-vit B12 1 gummy PO/SL DAILY SUPPLEMENT 01/25/23 [History Last Taken 01/25/23] levothyroxine 50 mcg tablet 50 mcg PO DAILY THYROID 01/25/23 [History Last Taken 01/25/23] ondansetron 4 mg disintegrating tablet 4 mg PO Q8H PRN PRN Nausea #10 tabs 01/25/23 [Rx Last Taken Unknown] potassium chloride 40 mEq/15 mL oral liquid 40 meq (15 mL) PO DAILY #105 mL 01/25/23 [Rx Last Taken Unknown] Allergy/AdvReac Type Severity Reaction Status Date / Time adhesive tape AdvReac Intermediate Rash Verified 01/25/23 15:19 codeine AdvReac Intermediate Dizziness Verified 01/25/23 15:19 Family History Mother Diabetes Father Heart disease Hypertension Surgical History Hx of appendectomy Hx of cataract surgery Hx of cholecystectomy S/P hemodialysis catheter insertion S/P partial hysterectomy Status post ORIF of fracture of ankle Social History household members: spouse Smoking Status: Never smoker second hand exposure: No alcohol intake: never substance use type: does not use salas/temple: Yazidism seatbelt use: always do you feel safe at home: Yes ROS ROS ED Constitutional Constitutional ED: Denies chills, fever(s), subjective, sweats or weight loss Eyes Eyes: Denies blurry vision, change in vision or diplopia ENT ENT ED: Denies ear pain, rhinorrhea or sore throat Cardiovascular Cardiovascular: Denies chest pain, orthopnea, palpitations or racing heartbeat Respiratory/Chest Respiratory/Chest: Denies cough, dyspnea, dyspnea on exertion or orthopnea Gastrointestinal Gastrointestinal: Reports abdominal pain, nausea, vomiting and other Details: Patient reports hard and small stool since onset of illness. ; Denies constipation, diarrhea or melena Genitourinary Genitourinary ED: Denies dysuria, hematuria or urinary frequency Musculoskeletal Musculoskeletal: Denies arthralgias, back pain, myalgias or neck pain Integumentary Denies Abrasions Neurologic Neurologic: Reports weakness; Denies headache(s) or paresthesias Psychiatric Psychiatric: Denies anxiety or depression Endocrine Endocrinology: Denies cold intolerance, heat intolerance, polydipsia or polyuria Hematologic/Lymphatic Hematologic/Lymphatic: Reports systems reviewed and no addt'l complaints, except as documented EXAM Physical Exam Const Vital Signs: 01/25/23 15:17 01/25/23 16:21 01/25/23 17:20 Temperature 98.4 F Temperature Source Temporal Pulse Rate 62 63 Respiratory Rate 15 15 Respiratory Pattern Normal Blood Pressure 121/50 H Blood Pressure Mean 73 Pulse Ox 94 94 Oxygen Delivery Method Room Air Room Air 01/25/23 17:53 01/25/23 20:14 01/25/23 20:14 Temperature 97.7 F L 98.4 F Temperature Source Oral Temporal Pulse Rate 62 78 Respiratory Rate 18 17 Respiratory Pattern Blood Pressure 139/55 H 130/70 H Blood Pressure Mean 83 90 Pulse Ox 97 98 98 Oxygen Delivery Method Room Air Room Air Room Air Positive well nourished, obese and unkempt Constitutional Narrative: Patient appears ill. Patient is awake but not alert. General Appearance ED: unkempt and pallor; Negative for cyanotic, diaphoretic or NAD Nutritional Appearance: obese HEENT Reports dry mucous membranes HEENT Narrative: Head is atraumatic and normocephalic. Nares are patent. Ears are normal. Posterior pharynx is normal. Mouth ED: Yes dry mucous membranes Mouth: dry mucous membranes Eyes PERRL and EOMs intact bilaterally General Eye ED: Negative for pale conjunctiva or scleral icterus Neck no lymphadenopathy, supple and no JVD Resp normal respiratory effort and clear to auscultation bilaterally Cardio regular rate, regular rhythm, S1 normal heart sound, S2 normal heart sound and no murmurs GI normal to inspection, nondistended, normoactive bowel sounds, non-tender, non- distended and no masses; Negative for hepatosplenomegaly Back/Spine no CVA tenderness Cervical Spine: Negative for cervical spine tenderness Thoracic Spine / Upper Back: Negative for thoracic spinal tenderness Lumbar Spine / Lower Back: Negative for lumbar spinal tenderness Extremity General Extremety ED: Negative for tenderness or other findings General Extremity: Negative for other findings Neuro oriented x3, CN's II-XII intact bilaterally and no sensory deficits noted Sensorium / Orientation: Negative for alert Psych Appearance: unkempt Mood & Affect: depressed Skin no rashes or lesions noted, no wounds and No skin turgor normal General Skin Exam: pallor; Negative for elasticity normal or jaundice MDM MDM MDM Narrative Medical decision making narrative: Clinically patient is dehydrated. 1 L of normal saline was ordered. Concern patient may have BALDO which she has had in the past when she was ill. Will obtain basic metabolic panel to assess glucose as well as CO2 anion gap and renal function. Patient was administered 4 mg of Zofran for her nausea and vomiting. Patient had a recent EGD performed by Dr. Spence that revealed grade B reflux esophagitis and a small hiatal hernia. Also a duodenal polyp was noted with incomplete resection. Patient had a CT of the abdomen pelvis without contrast October 25, 2022. The CAT scan at that time revealed colitis of the ascending and proximal transverse colon with circumferential thickening of the distal esophagus. This raise concern for esophagitis/GERD. This was confirmed on EGD performed by Dr. Spence. Lab Data Attestation: I reviewed the patient's lab results. Lab results narrative: CBC is markable. Basic metabolic panel reveals hypokalemia, 2.4. Patient has an anion gap acidosis. VBG was obtained and reveals a normal pH of 7.48, PCO2 41.8, PO2 36.5 and bicarb of 31.5 with a base excess of +8.1. There is no evidence of acidosis based on this venous blood gas. Plan is to discharge to home Labs: Laboratory Results - last 24 hr 01/25/23 01/25/23 01/25/23 15:40 15:40 15:40 WBC 6.4 RBC 4.36 Hgb 12.7 Hct 37.9 MCV 86.9 MCH 29.1 MCHC 33.5 RDW Std Deviation 46.2 H RDW Coeff of Joe 14.4 Plt Count 195 MPV 10.8 Immature Gran % (Auto) 0.500 Neut % (Auto) 68.3 Lymph % (Auto) 24.1 [place] % (Auto) 5.7 Eos % (Auto) 0.8 Baso % (Auto) 0.6 Absolute Neuts (auto) 4.4 Absolute Lymphs (auto) 1.55 Nucleated RBC % 0 Differential Comment SCANNED Reactive Lymphocytes 1+ Sodium 138 Potassium 2.4 L* Chloride 88 L Carbon Dioxide 32.0 Anion Gap 18 H BUN 18 Creatinine 1.46 H Estim Creat Clear Calc 27.44 Est GFR (MDRD) Af Amer 46 L Est GFR (MDRD) Non-Af 38 L BUN/Creatinine Ratio 12.3 Glucose 130 H Lactic Acid 1.4 Calcium 9.3 Total Bilirubin 1.10 H AST 34 ALT 18 Alkaline Phosphatase 77 Total Protein 6.8 Albumin 2.9 L Globulin 3.9 Albumin/Globulin Ratio 0.7 L ABG Data ABG results: ABG 01/25/23 17:50 Specimen Type FLORI VBG pH 7.49 H VBG pO2 37 VBG HCO3 32 H VBG Total CO2 33 VBG O2 Sat (Calc) 74 H VBG Base Excess 8 H POC Mix VBG pCO2 Pt Tmp 41.8 Rhythm Strip Rhythm Strip: Sinus Rhythm Rate: 68 Ectopy: None Treatment and Re-Evaluation Narrative: Patient tolerated p.o. potassium. She was discharged with scription for potassium. She will need to follow-up with her doctor for repeat basic metabolic panel in 3 days. Plan is discharged to home since her renal function is at baseline. Discharge Plan Triage Chief Complaint: General Illness ED Provider: Fuentes Jenkins Dx/Rx/DC Orders Clinical Impression: Nausea & vomiting, Abdominal pain, Acute hypokalemia, Increased anion gap metabolic acidosis, Dehydration, mild, Chronic renal insufficiency Instructions: ED Hypokalemia, ED Vomiting (Adult), ED Renal Insufficiency Prescriptions: New ondansetron [ondansetron] 4 mg tablet,disintegrating 4 mg PO Q8H PRN PRN (Reason: Nausea) Qty: 10 0RF potassium chloride 40 mEq/15 mL liquid 40 meq PO DAILY Qty: 105 0RF No Action Korlym 300 mg tablet 300 mg PO BID furosemide 40 mg tablet 40 mg PO DAILY Tresiba FlexTouch U-200 200 unit/mL (3 mL) insulin pen 33 unit subcut BID insulin lispro [Humalog KwikPen Insulin] 100 unit/mL insulin pen 22 unit subcut TIDCM calcium carbonate-vitamin D3 600 mg-10 mcg (400 unit) tablet 1 tab PO DAILY atorvastatin 40 MG tablet 40 mg PO QHS pantoprazole 40 MG tablet,delayed release (DR/EC) 40 mg PO DAILY potassium chloride 20 mEq Tablet,Er Particles/Crystals 40 meq PO TID levothyroxine 50 mcg tablet 50 mcg PO DAILY Jardiance 10 mg tablet 10 mg PO DAILY ferrous fumarate-vit C-vit B12 1 gummy PO/SL DAILY Primary Care Provider: Crow Morel Chi Referrals: Crow Morel Chi, MD [Primary Care Provider] - 3-5 Days Activity Restrictions/Additional Instructions: You need to contact Dr. Kemp for repeat blood work, basic metabolic panel, in 3 to 5 days. This is to check your potassium and renal function Disposition Disposition: Home, Self Care
[2023-01-25 16:06] LABS: Absolute Lymphocyte Count 1.55 X10^3/uL (0.83-4.51); Absolute Neutrophil Count 4.4 X10^3/uL (2.0-7.7); Basophil# 0.04 X10^3/uL; Basophil% 0.6 % (0-1); Eosinophil# 0.05 X10^3/uL; Eosinophils% 0.8 % (0-5); Hematocrit 37.9 % (37-47); Hemoglobin 12.7 g/dL (12.0-15.0); Lymphocyte # 1.55 X10^3/ul (0.83-4.51); Lymphocyte % 24.1 % (19-41); Mean Corp Hgb Conc 33.5 g/dL (32-36); Mean Corpuscular Hgb 29.1 pg (27.0-32.0); Mean Corpuscular Volume 86.9 fL (81-99); Mean Platelet Vol. 10.8 fl (6.2-12.0); Monocyte# 0.37 X10^3/uL; Monocyte% 5.7 % (0-10); NRBC Flagged by Analyzer 0 % (0-5); Neutrophil % 68.3 % (47-70); POSITIVE MORPHOLOGY YES; Platelet Count 195 K/mm3 (150-450); RBC Distribution Width CV 14.4 % (11.6-14.6); RBC Distribution Width SD 46.2 fl (35.1-43.9); Red Blood Count 4.36 M/mm3 (4.2-5.4); White Blood Count 6.4 K/mm3 (4.4-11.0)
[2023-01-25 16:11] LABS: Differential Indicated SCAN CRITERIA MET
[2023-01-25] MEDS: 0.9% Normal Saline 1,000 ML 1000 ML IV (16:18)
[2023-01-25] MEDS: Ondansetron 4 MG/2 ML Vial IV (16:18)
[2023-01-25 16:21] VITALS: BMI 32.3
[2023-01-25 16:36] LABS: ALB/GLOB Ratio 0.7 RATIO (0.9-2.4); AST(SGOT) 34 U/L (15-37); Alanine Aminotransfer ALT/SGPT 18 U/L (13-56); Albumin, Serum 2.9 g/dL (3.2-5.0); Alkaline Phosphatase 77 U/L (45-117); Anion Gap 18 (5-15); BUN 18 mg/dL (7-18); BUN/Creat Ratio 12.3 RATIO (10-20); Calcium,Total 9.3 mg/dL (8.5-10.1); Chloride 88 mmol/L (98-107); Creatinine, Serum 1.46 mg/dL (0.55-1.02); EST Glomerular Filtration Rate 38 mL/min (>60); Est Glom Filt Rate - Afr Amer 46 mL/min (>60); Estimated Creatinine Clearance 27.44 ml/min; Globulin 3.9 g/dL (2.2-4.2); Glucose 130 mg/dL (74-106); Potassium 2.4 mmol/L (3.5-5.1); Protein, Total 6.8 g/dL (6.4-8.2); Sodium Level 138 mmol/L (136-145)
[2023-01-25 16:37] LABS: Lactic Acid 1.4 mmol/L (0.4-1.9)
[2023-01-25 16:48] LABS: Differential Comment SCANNED; Reactive Lymphocyte 1+
--- NOTE | 2023-01-25 17:05 | ED.RN ---
K+ 2.[address] Jenkins updated.
[2023-01-25 17:20] VITALS: PULSE 63; RESP 15; O2SAT 94
[2023-01-25 17:53] VITALS: BP 139/55; PULSE 62; RESP 18; TEMP 36.5; O2SAT 97
[2023-01-25 17:54] LABS: Blood Gas Specimen Type VEN; VBG BASE EXCESS 8 mmol/L (-1.0-3.5); VBG Bicarbonate 32 mmol/L (22-26); VBG PO2 37 mmHg (25-40); VBG SO2 74 % (50-70); VBG TCO2 33 mmol/L (23-33); VBG pCO2 41.8 mmHg (41-51); VBG pH 7.49 (7.32-7.42)
[2023-01-25] MEDS: Potassium Chloride Oral Soln 20 MEQ/15 ML UDC 40 MEQ PO ×2 (17:54→19:19)
[2023-01-25 20:14] VITALS: BP 130/70; PULSE 78; RESP 17; TEMP 36.9; O2SAT 98
[2023-01-25 21:10] VITALS: BP 128/76; PULSE 71; RESP 15; O2SAT 98
== END 2023-01-25 21:11 | disposition home or self-care (01) ==
PROVIDERS: Emergency Provider Emergency Medicine; PCP Family Medicine Geriatric Medicine; Visit Provider Emergency Medicine
DX: R11.2 Nausea with vomiting, unspecified (principal); E11.22 Type 2 diabetes mellitus with diabetic chronic kidney disease; N18.31 Chronic kidney disease, stage 3a; E86.0 Dehydration; R63.0 Anorexia; E87.6 Hypokalemia; E78.00 Pure hypercholesterolemia, unspecified; E66.9 Obesity, unspecified; Z87.19 Personal history of other diseases of the digestive system; E87.20 Acidosis, unspecified
CPT/HCPCS: 36415; 80053; 82803; 83605; 85025; 96361; 96374; 99285; J7030; A4216; J2405

== ENCOUNTER → 2023-01-27 | Outpatient (CLI) | payer MEDICARE, BC, SELFPAY ==
[2023-01-27 12:30] LABS: Absolute Lymphocyte Count 1.33 X10^3/uL (0.83-4.51); Absolute Neutrophil Count 5.2 X10^3/uL (2.0-7.7); Basophil# 0.02 X10^3/uL; Basophil% 0.3 % (0-1); Eosinophil# 0.04 X10^3/uL; Eosinophils% 0.6 % (0-5); Hematocrit 36.3 % (37-47); Hemoglobin 12.3 g/dL (12.0-15.0); Lymphocyte # 1.33 X10^3/ul (0.83-4.51); Lymphocyte % 18.9 % (19-41); Mean Corp Hgb Conc 33.9 g/dL (32-36); Mean Corpuscular Hgb 28.9 pg (27.0-32.0); Mean Corpuscular Volume 85.4 fL (81-99); Mean Platelet Vol. 10.7 fl (6.2-12.0); Monocyte# 0.37 X10^3/uL; Monocyte% 5.3 % (0-10); NRBC Flagged by Analyzer 0 % (0-5); Neutrophil # 5.23 X10^3/uL (2.7-7.7); Neutrophil % 74.3 % (47-70); Platelet Count 251 K/mm3 (150-450); RBC Distribution Width SD 46.1 fl (35.1-43.9); Red Blood Count 4.25 M/mm3 (4.2-5.4)
[2023-01-27 13:42] LABS: Anion Gap 10 (5-15); BUN 13 mg/dL (7-18); BUN/Creat Ratio 8.5 RATIO (10-20); Calcium,Total 9.2 mg/dL (8.5-10.1); Chloride 92 mmol/L (98-107); Creatinine, Serum 1.53 mg/dL (0.55-1.02); EST Glomerular Filtration Rate 36 mL/min (>60); Est Glom Filt Rate - Afr Amer 43 mL/min (>60); Glucose 242 mg/dL (74-106); Potassium 2.7 mmol/L (3.5-5.1); Sodium Level 139 mmol/L (136-145)
== END | disposition home or self-care (01) ==
LOC: POLAB3 12:02
PROVIDERS: PCP Family Medicine Geriatric Medicine; Visit Provider Family Medicine Geriatric Medicine
DX: R10.9 Unspecified abdominal pain (principal); N39.0 Urinary tract infection, site not specified
CPT/HCPCS: 36415; 80048; 85025; 87086

== ENCOUNTER → 2023-01-27 | Outpatient (CLI) | payer MEDICARE, BC, SELFPAY ==
--- NOTE | 2023-01-27 15:16 | RAD_ITS ---
STUDY: X-RAY - ABDOMEN/PELVIS REASON FOR EXAM: Female, 67 years old. Abdominal pain. TECHNIQUE: AP supine and upright views of the abdomen and pelvis on 3 images. COMPARISON: Lumbar spine study dated January 27, 2023. FINDINGS: Normal visualized lung bases. Normal bowel gas pattern with air seen to the rectum. There is no demonstrated free abdominal air. The visualized liver, spleen and kidneys are grossly normal in size and morphology. Vascular calcification, cholecystectomy clips and clips projected over pelvis. Calcification measuring 5 mm in diameter projected over the upper pole of the left kidney which may represent a renal calculus. Mild arthrosis of both hips. 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 Mild arthrosis of both hips. No acute abnormality of the lower chest, abdomen or pelvis. Electronically Signed: Jacob Arana, at 9:48 EST ,
--- NOTE | 2023-01-27 15:20 | RAD_ITS ---
STUDY: X-RAY - LUMBAR SPINE REASON FOR EXAM: Female, 67 years old. Low back pain. TECHNIQUE: 4 view(s) of the lumbar spine were obtained. COMPARISON: None FINDINGS: Osteopenia. Normal lumbar lordosis. There is no substantial scoliosis. There is a normal alignment of the vertebrae. Diffuse facet sclerosis. Prominent Schmorl''s nodes at the upper body of L3. Diffuse intervertebral disc space narrowing of the lower thoracic spine and L3-4. Osteophyte formation and vacuum phenomenon at L3-4. Cholecystectomy clips, probable left upper pole renal calculus measuring 5 mm in diameter and postsurgical changes in the pelvis. RAD/L/S Spine Min 4 Views IMPRESSION: Osteopenia with thoracolumbar spondylosis most marked at L3-4 as described. No acute abnormality, evidence of erosive changes or fusion. Electronically Signed: Jacob Arana, at 9:50 EST ,
== END | disposition home or self-care (01) ==
PROVIDERS: PCP Family Medicine Geriatric Medicine; Visit Provider Family Medicine Geriatric Medicine
DX: R10.9 Unspecified abdominal pain (principal); M54.50 Low back pain, unspecified
CPT/HCPCS: 36415; 72110; 74019; 80048; 85025; 87086; 87088

== ENCOUNTER → 2023-01-28 | Outpatient (CLI) | payer MEDICARE, BC, SELFPAY | END | disposition home or self-care (01) | LOC: PSN 13:57 | PROVIDERS: PCP Family Medicine Geriatric Medicine; Visit Provider Family Medicine Geriatric Medicine | DX: R68.83 Chills (without fever) (principal) | CPT/HCPCS: 87635; 87804; 87807; C9803; U0003; U0005 ==

== ENCOUNTER 2023-02-06 11:21 | Inpatient (IN) | payer MEDICARE, BC, SELFPAY ==
[2023-02-06 11:22] VITALS: BP 128/66; PULSE 85; RESP 18; TEMP 36.4; O2SAT 95; BMI 31.6
--- NOTE | 2023-02-06 11:45 | EX.ED.DYSGE1 ---
HPI History of Present Illness Chief Complaint: Hypoglycemia Informant: patient Narrative Narrative: Patient was evidently confused this morning. Sounds like called EMS who arrived and found her blood sugar was in the 40s. She was given glucagon. Blood sugar was coming up and now she is awake and alert x3. She states she was sick recently. She was in the emergency department. She had had some nausea and vomiting. But she states the last time she vomited was probably for 5 days ago. Her appetite is improving but is still she is not eating and drinking as much as she normally would. She is taking her potassium as prescribed because her potassium was low. She has not changed her Tresiba dose her insulin dosage. But she has been eating less. She feels fine at this time. No injury during this episode. When I see her, she is actually eating a sandwich. [facility] Medical History BALDO (acute kidney injury) Anemia Anemia Anemia of chronic renal failure, stage 3 (moderate) Back problem BMI 37.0-37.9, adult Bone fracture Cataracts, bilateral Chronic kidney disease, stage 3a Chronic renal disease, stage 3, moderately decreased glomerular filtration rate (GFR) between 30-59 mL/min/1.73 square meter Rice syndrome Debility Depression Diabetes mellitus Diabetes mellitus type 2 in obese Diabetes type 2, controlled Edema Gastroesophageal reflux disease History of chronic kidney disease History of diabetes mellitus Hyperlipidemia Hyperlipidemia associated with type 2 diabetes mellitus Iron deficiency anemia due to chronic blood loss Major depressive disorder, recurrent episode Malaise and fatigue Morbid obesity Nonhealing nonsurgical wound with fat layer exposed Obstructive sleep apnea on CPAP Obstructive sleep apnea syndrome Osteopenia Pancreatitis Vision problems Wound of skin Home Medications atorvastatin 40 mg tablet 40 mg PO QHS Cholesterol 01/06/20 [History Last Taken 01/24/23] pantoprazole 40 mg tablet,delayed release 40 mg PO DAILY Gerd 09/10/20 [History Last Taken 01/25/23] calcium carbonate 600 mg-vitamin D3 10 mcg (400 unit) tablet 1 tab PO DAILY SUPPLEMENT 03/08/22 [History Last Taken 01/25/23] furosemide 40 mg tablet 40 mg PO DAILY FLUID 07/16/22 [History Last Taken 01/25/23] insulin degludec 200 unit/mL (3 mL) subcutaneous pen (Tresiba FlexTouch U-200 insulin) 33 unit subcut BID DIABETES 07/16/22 [History Last Taken 3 Days Ago ~01/22/23] insulin lispro 100 unit/mL subcutaneous pen (Humalog KwikPen (U-100) Insulin) 22 unit subcut TIDCM DIABETES 07/16/22 [History Last Taken 3 Days Ago ~01/22/23] mifepristone 300 mg tablet (Korlym) 300 mg PO BID BLOOD SUGAR 07/16/22 [History Last Taken 01/25/23] potassium chloride 20 mEq tablet,extended release(part/cryst) 40 meq PO TID SUPPLEMENT 10/25/22 [History Last Taken 01/25/23] empagliflozin 10 mg tablet (Jardiance) 10 mg PO DAILY BLOOD SUGAR 01/25/23 [History Last Taken 01/25/23] ferrous fumarate-vit C-vit B12 1 gummy PO/SL DAILY SUPPLEMENT 01/25/23 [History Last Taken 01/25/23] levothyroxine 50 mcg tablet 50 mcg PO DAILY THYROID 01/25/23 [History Last Taken 01/25/23] ondansetron 4 mg disintegrating tablet 4 mg PO Q8H PRN PRN Nausea #10 tabs 01/25/23 [Rx Last Taken Unknown] potassium chloride 40 mEq/15 mL oral liquid 40 meq (15 mL) PO DAILY #105 mL 01/25/23 [Rx Last Taken Unknown] Allergy/AdvReac Type Severity Reaction Status Date / Time adhesive tape AdvReac Intermediate Rash Verified 02/06/23 11:21 codeine AdvReac Intermediate Dizziness Verified 02/06/23 11:21 Family History Mother Diabetes Father Heart disease Hypertension Surgical History Hx of appendectomy Hx of cataract surgery Hx of cholecystectomy S/P hemodialysis catheter insertion S/P partial hysterectomy Status post ORIF of fracture of ankle Social History household members: spouse Smoking Status: Never smoker second hand exposure: No alcohol intake: never substance use type: does not use salas/catholic: Voodoo seatbelt use: always do you feel safe at home: Yes ROS ROS ED Constitutional Constitutional ED: Denies fever(s) ENT ENT ED: Denies rhinorrhea Cardiovascular Cardiovascular: Denies chest pain or palpitations Respiratory/Chest Respiratory/Chest: Denies cough or dyspnea Gastrointestinal Gastrointestinal: Reports other Details: Patient had GI symptoms but they are getting better now. ; Denies abdominal pain, diarrhea, nausea or vomiting Genitourinary Genitourinary ED: Denies urinary frequency Musculoskeletal Musculoskeletal: Denies myalgias Integumentary Denies rash Neurologic Neurologic: Denies headache(s) Hematologic/Lymphatic Hematologic/Lymphatic: Denies easy bleeding or easy bruising Allergic/Immunologic Allergic/Immunologic ED: Denies urticaria EXAM Physical Exam Narrative Exam Narrative: Patient is awake alert eating a sandwich nontoxic. HEENT shows no sign of trauma or injury. Mucous membranes are still moist. Eyes show no icterus Lungs are clear bilaterally. Breathing is easy and unlabored. She has normal saturations at 95% on room air showing no hypoxia. Heart is regular rate of about 80. I hear no murmur. Abdomen is soft and nontender shows no CVA or suprapubic tenderness Extremities show no sign of trauma or tenderness. Neurologically she is awake alert to person place time situation and her recent visit to the ER including medications. Const Vital Signs: 02/06/23 11:22 02/06/23 12:26 02/06/23 13:21 Temperature 97.6 F L Temperature Source Temporal Pulse Rate 85 85 Respiratory Rate 18 17 Respiratory Effort Normal Non-Labored Respiratory Pattern Normal Blood Pressure 128/66 H 116/67 Blood Pressure Mean 86 83 Pulse Ox 95 98 Oxygen Delivery Method Room Air Room Air MDM MDM MDM Narrative Medical decision making narrative: ThisPatient's blood work did show a very high white count at 19.9. She denies fevers. She denies urinary symptoms. She states her stomach is not hurting anymore and she is not having vomiting or diarrhea. Could be due to stress demargination from severe hypoglycemia. But it is somewhat concerning. Her electrolytes show creatinine is baseline and BUN is very normal. Glucose is up a tiny bit at 198. Potassium is still low but is improved at 3.3. Patient did eat some of her sandwich. But when I talk to her she just does not feel like eating much. At this time, her is now present. He is very concerned about her. He admits that her nausea vomiting and diarrhea seems to be gone. But he cannot get her to eat. He has to force bites of food into her. 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 She is too weak. He is making the food and trying to feed her. He is keeping fluids in her. He is getting the potassium into her. However he states that 3 weeks ago she could walk from the parking lot into the building to be seen. He states now she can walk maybe 3 to 5 feet and even that he needs to help her. She is just overall weak. When she went to the restroom in the room, he had almost carry her from the bedside commode to the bed which is only 1 or 2 steps. He can had to lift her into bed. This is not focal weakness this is generalized weakness. I do not think it is just due to dehydration. But I do not think the patient can go home considering how significant this has changed. Since her abdomen is not tender, and she is not having diarrhea or vomiting I do not think I need to acutely scan her abdomen again. I did review her CT scan from September. But I will check urinalysis which is pending. I will also send off a COVID, flu and TSH. I have talked to the hospitalist about admitting her as the patient is just too profoundly weak to go home safely Lab Data Labs: Laboratory Results - last 24 hr 02/06/23 02/06/23 12:05 12:05 WBC 19.9 H RBC 5.13 Hgb 14.6 Hct 45.3 MCV 88.3 MCH 28.5 MCHC 32.2 RDW Std Deviation 49.0 H RDW Coeff of Joe 15.2 H Plt Count 370 MPV 10.2 Immature Gran % (Auto) 0.600 Neut % (Auto) 86.6 H Lymph % (Auto) 8.1 L [place] % (Auto) 3.7 Eos % (Auto) 0.6 Baso % (Auto) 0.4 Absolute Neuts (auto) 17.2 H Absolute Lymphs (auto) 1.60 Nucleated RBC % 0 Sodium 138 Potassium 3.3 L Chloride 96 L Carbon Dioxide 32.0 Anion Gap 10 BUN 8 Creatinine 1.45 H Estim Creat Clear Calc 27.63 Est GFR (MDRD) Af Amer 46 L Est GFR (MDRD) Non-Af 38 L BUN/Creatinine Ratio 5.5 L Glucose 198 H Calcium 9.7 Management Discussion w/another healthcare provider: Hospitalist Discharge Plan Triage Chief Complaint: Hypoglycemia ED Provider: Ren Israel Dx/Rx/DC Orders Clinical Impression: Hypoglycemia, Unable to ambulate, Generalized weakness, Declining functional status Prescriptions: No Action Korlym 300 mg tablet 300 mg PO BID furosemide 40 mg tablet 40 mg PO DAILY Tresiba FlexTouch U-200 200 unit/mL (3 mL) insulin pen 33 unit subcut BID insulin lispro [Humalog KwikPen Insulin] 100 unit/mL insulin pen 22 unit subcut TIDCM calcium carbonate-vitamin D3 600 mg-10 mcg (400 unit) tablet 1 tab PO DAILY atorvastatin 40 MG tablet 40 mg PO QHS pantoprazole 40 MG tablet,delayed release (DR/EC) 40 mg PO DAILY potassium chloride 20 mEq Tablet,Er Particles/Crystals 40 meq PO TID levothyroxine 50 mcg tablet 50 mcg PO DAILY Jardiance 10 mg tablet 10 mg PO DAILY ferrous fumarate-vit C-vit B12 1 gummy PO/SL DAILY ondansetron [ondansetron] 4 mg tablet,disintegrating 4 mg PO Q8H PRN PRN (Reason: Nausea) Qty: 10 0RF potassium chloride 40 mEq/15 mL liquid 40 meq PO DAILY Qty: 105 0RF Primary Care Provider: Crow Morel Chi Referrals: Crow Morel Chi, MD [Primary Care Provider] - Disposition Disposition: Acute Care Hospital [facility]
[2023-02-06 12:10] LABS: Absolute Neutrophil Count 17.2 X10^3/uL (2.0-7.7); Basophil# 0.08 X10^3/uL; Basophil% 0.4 % (0-1); Eosinophil# 0.12 X10^3/uL; Eosinophils% 0.6 % (0-5); Hematocrit 45.3 % (37-47); Hemoglobin 14.6 g/dL (12.0-15.0); Lymphocyte % 8.1 % (19-41); Mean Corp Hgb Conc 32.2 g/dL (32-36); Mean Corpuscular Hgb 28.5 pg (27.0-32.0); Mean Corpuscular Volume 88.3 fL (81-99); Mean Platelet Vol. 10.2 fl (6.2-12.0); Monocyte# 0.74 X10^3/uL; Monocyte% 3.7 % (0-10); NRBC Flagged by Analyzer 0 % (0-5); Neutrophil # 17.19 X10^3/uL (2.7-7.7); Neutrophil % 86.6 % (47-70); Platelet Count 370 K/mm3 (150-450); RBC Distribution Width CV 15.2 % (11.6-14.6); Red Blood Count 5.13 M/mm3 (4.2-5.4); White Blood Count 19.9 K/mm3 (4.4-11.0)
[2023-02-06 12:36] LABS: Anion Gap 10 (5-15); BUN 8 mg/dL (7-18); BUN/Creat Ratio 5.5 RATIO (10-20); Calcium,Total 9.7 mg/dL (8.5-10.1); Chloride 96 mmol/L (98-107); Creatinine, Serum 1.45 mg/dL (0.55-1.02); EST Glomerular Filtration Rate 38 mL/min (>60); Est Glom Filt Rate - Afr Amer 46 mL/min (>60); Estimated Creatinine Clearance 27.63 ml/min; Glucose 198 mg/dL (74-106); Potassium 3.3 mmol/L (3.5-5.1); Sodium Level 138 mmol/L (136-145)
[2023-02-06 13:21] VITALS: BP 116/67; PULSE 85; RESP 17; O2SAT 98
[2023-02-06 15:02] VITALS: BP 127/63; PULSE 83; RESP 17; TEMP 36.6; O2SAT 97
--- NOTE | 2023-02-06 15:37 | HP.PCM.HOS_ITS ---
HPI - General General Date of Admission: 02/06/23 Date of Service: 02/06/23 Chief Complaint: Gen weakness, hypoglycemia HPI Narrative Shantell Rivera is a 67-year-old female with a history of CKD stage IIIb, type 2 diabetes mellitus, depression, Laura's disease who presented to [facility] 02[facility]23 after she was found unresponsive at home and was noted to be hypoglycemic with a glucose in the 40s. She was given glucagon and improved. In ED blood pressure 128/66, heart rate 85, 95% on room air. White blood cell count 19.9, potassium 3.3 and a BUN of 8 with a creatinine of 1.45. Glucose was 198. Initially had discussed going home however reported that she has had very poor p.o. intake and generalized weakness and is unable to get around by herself and requires a significant amount of assistance which is drastically different from her baseline and does not feel she is safe to come home. Of note she was seen in the ED 01/25/2023 due to nausea and vomiting and decreased urine output but was given fluids and potassium in ED and improved and was discharged home. Hospitalist consulted for admission. Spoke with patient with her at bedside and she reportedly has been having more weakness over the past couple months that is worsened over the past several days and this past 1 day has been quite significant. She checks her glucose once daily sporadically and reports it is widely variable. Has a slight cough without overt increased shortness of breath, no chest pain, has bowel movements every 3 to 4 days. Reports being cold. Overall just generally weak and feels unwell. [facility] Medical History BALDO (acute kidney injury) Anemia Anemia Anemia of chronic renal failure, stage 3 (moderate) Back problem BMI 37.0-37.9, adult Bone fracture Cataracts, bilateral Chronic kidney disease, stage 3a Chronic renal disease, stage 3, moderately decreased glomerular filtration rate (GFR) between 30-59 mL/min/1.73 square meter [place] syndrome Debility Depression Diabetes mellitus Diabetes mellitus type 2 in obese Diabetes type 2, controlled Edema Gastroesophageal reflux disease History of chronic kidney disease History of diabetes mellitus Hyperlipidemia Hyperlipidemia associated with type 2 diabetes mellitus Iron deficiency anemia due to chronic blood loss Major depressive disorder, recurrent episode Malaise and fatigue Morbid obesity Nonhealing nonsurgical wound with fat layer exposed Obstructive sleep apnea on CPAP Obstructive sleep apnea syndrome Osteopenia Pancreatitis Vision problems Wound of skin Home Medications atorvastatin 40 mg tablet 40 mg PO QHS Cholesterol 01/06/20 [History Last Taken 02/05/23] pantoprazole 40 mg tablet,delayed release 40 mg PO DAILY Gerd 09/10/20 [History Last Taken 02/05/23] calcium carbonate 600 mg-vitamin D3 10 mcg (400 unit) tablet 1 tab PO DAILY SUPPLEMENT 03/08/22 [History Last Taken 02/05/23] furosemide 40 mg tablet 40 mg PO DAILY FLUID 07/16/22 [History Last Taken 02/05/23] insulin degludec 200 unit/mL (3 mL) subcutaneous pen (Tresiba FlexTouch U-200 insulin) 33 unit subcut BID DIABETES 07/16/22 [History Last Taken 02/05/23] insulin lispro 100 unit/mL subcutaneous pen (Humalog KwikPen (U-100) Insulin) 22 unit subcut TIDCM DIABETES 07/16/22 [History Last Taken 02/05/23] mifepristone 300 mg tablet (Korlym) 600 mg PO DAILY BLOOD SUGAR 07/16/22 [History Last Taken 02/05/23] potassium chloride 20 mEq tablet,extended release(part/cryst) 40 meq PO TID SUPPLEMENT 10/25/22 [History Last Taken 02/05/23] empagliflozin 10 mg tablet (Jardiance) 10 mg PO DAILY BLOOD SUGAR 01/25/23 [History Last Taken 02/05/23] ferrous fumarate-vit C-vit B12 1 gummy PO/SL DAILY SUPPLEMENT 01/25/23 [History Last Taken 02/05/23] levothyroxine 50 mcg tablet 50 mcg PO DAILY THYROID 01/25/23 [History Last Taken 02/05/23] ondansetron 4 mg disintegrating tablet 4 mg PO Q8H PRN PRN Nausea #10 tabs 01/25/23 [Rx Last Taken 02/05/23] Allergy/AdvReac Type Severity Reaction Status Date / Time adhesive tape AdvReac Intermediate Rash Verified 02/06/23 11:21 codeine AdvReac Intermediate Dizziness Verified 02/06/23 11:21 Family History Mother Diabetes Father Heart disease Hypertension Surgical History Hx of appendectomy Hx of cataract surgery Hx of cholecystectomy S/P hemodialysis catheter insertion S/P partial hysterectomy Status post ORIF of fracture of ankle Social History household members: spouse Smoking Status: Never smoker second hand exposure: No alcohol intake: never substance use type: does not use salas/judaism: Lutheran seatbelt use: always do you feel safe at home: Yes ROS ROS Narrative General: Feels cold HENT: Denies headache, denies stuffy nose, denies sore throat EYES: Denies changes in vision Resp: Slight cough, brings somewhat up Cardiac: Denies chest pain GI: Denies abdominal pain, does have some constipation : Denies changes in urination Extremity: Denies swelling MSK: Generalized weakness Neuro: Denies any numbness, denies tingling Heme: Denies any bleeding or bruising Skin: Denies rashes Psychiatric: No complaints voiced Vital Signs Vital Signs Vital Signs: 02/06/23 11:22 02/06/23 12:26 02/06/23 13:21 Temperature 97.6 F L Temperature Source Temporal Pulse Rate 85 85 Respiratory Rate 18 17 Respiratory Effort Normal Non-Labored Respiratory Pattern Normal Blood Pressure 128/66 H 116/67 Blood Pressure Mean 86 83 Pulse Ox 95 98 Oxygen Delivery Method Room Air Room Air 02/06/23 15:02 Temperature 98 F Temperature Source Temporal Pulse Rate 83 Respiratory Rate 17 Respiratory Effort Respiratory Pattern Blood Pressure 127/63 H Blood Pressure Mean 84 Pulse Ox 97 Oxygen Delivery Method Room Air Weight Weight: 75.8 kg Body Mass Index (BMI) 31.6 Physical Exam Narrative General: Alert, oriented, no apparent distress HEENT: Atraumatic, normocephalic Eyes: Anicteric, normal conjunctiva, extraocular movements grossly intact Neck: Supple Respiratory: Clear to auscultation bilaterally, normal respiratory effort Cardiovascular: Regular rate and rhythm GI: Soft, nontender, nondistended Extremities: No edema Musculoskeletal: Moving all extremities Neuro: No overt focal neurological deficits Skin: No rashes appreciated Psych: Cooperative Results Lab / Micro Data Result Diagrams: 02/06/23 12:05 02/06/23 12:05 Labs: Laboratory Results - last 24 hr 02/06/23 12:05: WBC 19.9 H, RBC 5.13, Hgb 14.6, Hct 45.3, MCV 88.3, MCH 28.5, MCHC 32.2, RDW Std Deviation 49.0 H, RDW Coeff of Joe 15.2 H, Plt Count 370, MPV 10.2, Immature Gran % (Auto) 0.600, Neut % (Auto) 86.6 H, Lymph % (Auto) 8.1 L, [place] % (Auto) 3.7, Eos % (Auto) 0.6, Baso % (Auto) 0.4, Absolute Neuts (auto) 17.2 H, Absolute Lymphs (auto) 1.60, Nucleated RBC % 0 02/06/23 12:05: Sodium 138, Potassium 3.3 L, Chloride 96 L, Carbon Dioxide 32.0, Anion Gap 10, BUN 8, Creatinine 1.45 H, Estim Creat Clear Calc 27.63, Est GFR (MDRD) Af Amer 46 L, Est GFR (MDRD) Non-Af 38 L, BUN/Creatinine Ratio 5.5 L, Glucose 198 H, Calcium 9.7 Assessment & Plan Assessment/Plan (1) Hypoglycemia: (2) Generalized weakness: PLAN: Plan #Poor p.o. intake, generalized weakness -Gentle fluids -Hold Lasix -Check TSH -PT/OT -Has relatively low activity, will check CK and hold atorvastatin -Also check a.m. cortisol she reportedly has a history of String[place]'s disease -Will also check COVID #?hx cushings dz -Managed by PCP -Check AM cortisol -Holding mifepristone -May need further w/u as an outpt #Metabolic encephalopathy secondary to hypoglycemia -Resolved -Had a leukocytosis but suspect this was reactive -No localizing signs or symptoms of infection #Type 2 diabetes mellitus -Reportedly takes Tresiba 33 units twice daily at home as well as 3 times daily short acting -Sliding scale insulin and glucose checks -Given her hypoglycemia and poor p.o. intake will start with sliding scale and add long-acting pending glucose -Patient checks glucose occasionally once a day, may benefit from establishing with endocrinology and/or continuous glucose monitor if available #Hypothyroidism -Check TSH -Synthroid #CKD stage IIIb -Appears to be close to baseline -Avoid nephrotoxic agents #DVT ppx: Heparin subcu Yaz Kat MD Time spent in the patient's overall evaluation,decision-making process, review of diagnostic data, adjustment of management, discussion with other providers, nursing nursing and ancillary staff involved in patient's care documentation, 60 minutes Charges/Coding Visit Charges Inpatient E&M: 91450 Init Hosp L2
[2023-02-06 16:04] VITALS: BMI 30.5
[2023-02-06 16:09] LABS: Thyroid Stim Hormone (TSH) 3.47 uIU/mL (0.358-3.74)
[2023-02-06 16:20] VITALS: BP 139/49; PULSE 82; RESP 18; TEMP 36.3; O2SAT 99
[2023-02-06] MEDS: 0.9% Normal Saline 1,000 ML 100 ML IV (16:37)
[2023-02-06 16:44] LABS: Mucous, Urine 0 SEEN /hpf (<or=2+); Red Blood Cells-Urine 0 SEEN /hpf (0-5)
[2023-02-06 16:47] LABS: Color, Urine Yellow (Yellow); Glucose, Dipstick 1000 mg/dl (Normal); Ketone-Dipstick Negative (Negative); Leukocyte Esterase-Dipstick Negative /ul (Negative); Nitrite-Dipstick Negative (Negative); Occult Blood-Urine 50 /ul (Negative); Protein-Dipstick 30 mg/dl (Negative); Urine Bilirubin Dipstick Negative (Negative); Urine Clarity Clear (Clear); Urine Urobilinogen 4 mg/dl (Normal)
[2023-02-06 17:05] LABS: Bedside Glucose 135 mg/dL (74-106)
[2023-02-06 17:11] LABS: Bacteria 2+ /hpf (None Seen); Squamous Epithelial Cells - UA 5-10 SEEN /hpf (5-10); White Blood Cells 0-5 SEEN /hpf (0-5)
[2023-02-06] MEDS: Potassium Chloride Oral Tablet 20 MEQ 60 MEQ PO (17:17)
[2023-02-06 17:37] VITALS: O2SAT 99
[2023-02-06 18:19] LABS: CPK Total, Creatine Kinase 65 U/L (26-192)
[2023-02-06 20:24] VITALS: BP 112/56; PULSE 85; RESP 18; TEMP 37.1; O2SAT 95
[2023-02-06] MEDS: Nystatin Powder 15gm Bottle 1 APPLIC TOPICAL (21:25)
[2023-02-06] MEDS: Heparin Injection (Vial) 5,000 UNIT/ML VIAL 5000 UNIT SC (21:25)
[2023-02-06] MEDS: Insulin Lispro 100 UNIT/ML INSULN.PEN SC (21:29)
[2023-02-06 21:51] LABS: Bedside Glucose 156 mg/dL (74-106)
[2023-02-07 01:24] VITALS: BMI 31.1
[2023-02-07 02:24] VITALS: BP 120/61; PULSE 81; RESP 18; TEMP 37.1; O2SAT 95
[2023-02-07] MEDS: Heparin Injection (Vial) 5,000 UNIT/ML VIAL 5000 UNIT SC ×3 (05:37→21:06)
--- NOTE | 2023-02-07 06:14 | NURSING ---
lab notified of stat glucose backup
[2023-02-07 06:40] LABS: Bedside Glucose 33 mg/dL (74-106)
[2023-02-07 06:40] LABS: Absolute Lymphocyte Count 1.66 X10^3/uL (0.83-4.51); Absolute Neutrophil Count 5.9 X10^3/uL (2.0-7.7); Basophil# 0.03 X10^3/uL; Basophil% 0.4 % (0-1); Eosinophil# 0.11 X10^3/uL; Eosinophils% 1.3 % (0-5); Hematocrit 34.9 % (37-47); Hemoglobin 11.3 g/dL (12.0-15.0); Lymphocyte # 1.66 X10^3/ul (0.83-4.51); Lymphocyte % 19.8 % (19-41); Mean Corp Hgb Conc 32.4 g/dL (32-36); Mean Corpuscular Hgb 28.7 pg (27.0-32.0); Mean Corpuscular Volume 88.6 fL (81-99); Mean Platelet Vol. 10.4 fl (6.2-12.0); Monocyte# 0.66 X10^3/uL; Monocyte% 7.9 % (0-10); NRBC Flagged by Analyzer 0 % (0-5); Neutrophil # 5.92 X10^3/uL (2.7-7.7); Neutrophil % 70.4 % (47-70); Platelet Count 310 K/mm3 (150-450); RBC Distribution Width CV 14.9 % (11.6-14.6); RBC Distribution Width SD 48.3 fl (35.1-43.9); Red Blood Count 3.94 M/mm3 (4.2-5.4); White Blood Count 8.4 K/mm3 (4.4-11.0)
[2023-02-07] MEDS: Glucagon 1 MG/ML Syringe IM (06:59)
--- NOTE | 2023-02-07 07:23 | NURSING ---
microsoft access developer called at this time to notify need for IV access
--- NOTE | 2023-02-07 07:24 | PN.HOSP_ITS ---
Reason for Visit Reason for Visit: Diagnoses Hypoglycemia, unspecified (02/06/23) Weakness (02/06/23) Subjective Subjective No new events. Objective Data Objective Data Vital Signs: Vital Signs Temp Pulse Resp BP Pulse Ox O2 Del Method 37.1 C 81 18 120/61 95 Room Air 02/07/23 02:24 02/07/23 02:24 02/07/23 02:24 02/07/23 02:24 02/07/23 02:24 02/07/23 02:33 Oxygen Delivery Method Room Air Weight: 74.7 kg Body Mass Index (BMI) 31.1 Intake & Output: Intake and Output for Last 24 Hours 02/05/23 02/06/23 02/07/23 22:59 23:59 23:59 Intake Total 500 / 500 Balance 500 / 500 Lab / Micro Data Result Diagrams: 02/07/23 06:05 02/07/23 06:05 Labs: Laboratory Results - last 24 hr 02/06/23 12:05: WBC 19.9 H, RBC 5.13, Hgb 14.6, Hct 45.3, MCV 88.3, MCH 28.5, MCHC 32.2, RDW Std Deviation 49.0 H, RDW Coeff of Joe 15.2 H, Plt Count 370, MPV 10.2, Immature Gran % (Auto) 0.600, Neut % (Auto) 86.6 H, Lymph % (Auto) 8.1 L, [place] % (Auto) 3.7, Eos % (Auto) 0.6, Baso % (Auto) 0.4, Absolute Neuts (auto) 17.2 H, Absolute Lymphs (auto) 1.60, Nucleated RBC % 0 02/06/23 12:05: Sodium 138, Potassium 3.3 L, Chloride 96 L, Carbon Dioxide 32.0, Anion Gap 10, BUN 8, Creatinine 1.45 H, Estim Creat Clear Calc 27.63, Est GFR (MDRD) Af Amer 46 L, Est GFR (MDRD) Non-Af 38 L, BUN/Creatinine Ratio 5.5 L, Glucose 198 H, Calcium 9.7 02/06/23 12:05: TSH 3.47 02/06/23 12:05: Total Creatine Kinase 65 02/06/23 16:36: Urine Color Yellow, Urine Clarity Clear, Urine pH 7.0, Ur Specific [place] 1.010, Urine Protein 30 H, Urine Glucose (UA) 1000 H, Urine Ketones Negative, Urine Occult Blood 50 H, Urine Nitrite Negative, Urine Bilirubin Negative, Urine Urobilinogen 4 H, Ur Leukocyte Esterase Negative, Urine RBC 0 SEEN, Urine WBC 0-5 SEEN, Ur Squamous Epith Cells 5-10 SEEN, Urine Bacteria 2+, Urine Mucus 0 SEEN 02/06/23 16:44: POC Glucose 135 H 02/06/23 21:24: POC Glucose 156 H 02/07/23 06:05: WBC 8.4, RBC 3.94 L, Hgb 11.3 L, Hct 34.9 L, MCV 88.6, MCH 28.7, MCHC 32.4, RDW Std Deviation 48.3 H, RDW Coeff of Joe 14.9 H, Plt Count 310, MPV 10.4, Immature Gran % (Auto) 0.200, Neut % (Auto) 70.4 H, Lymph % (Auto) 19.8, [place] % (Auto) 7.9, Eos % (Auto) 1.3, Baso % (Auto) 0.4, Absolute Neuts (auto) 5.9, Absolute Lymphs (auto) 1.66, Nucleated RBC % 0 02/07/23 06:05: Glucose Cancelled 02/07/23 06:09: POC Glucose 33 L* Micro: Microbiology 02/06/23 15:47 Nasal Secretion SARS-CoV-2 & FLU Antigen (Rapid) - Final Physical Exam Const alert and no apparent distress HEENT head/scalp atraumatic and moist oral mucous membranes Resp normal respiratory effort, no use of accessory muscles and clear to auscultation bilaterally Cardio regular rate, regular rhythm, S1 normal heart sound and S2 normal heart sound GI normal to inspection, nondistended, normoactive bowel sounds, soft to palpation and non-tender Extremity normal to inspection Assessment & Plan Assessment/Plan (1) Generalized weakness: PLAN: Progressive Likely multifactorial TSH and CK WNL, Rapid COVID 19 and influenza negative PT OT eval and treat (2) Hypoglycemia: PLAN: Iatrogenic from Jardiance, basal and prandial insulin, but also likely due to poor oral intake. received glucagon this AM. Continue to hold home meds for now. Check a1c (3) BALDO (acute kidney injury): PLAN: Resolved Creatinine has been elevated since November, but was normal in October (0.72) Furosemide held. (4) Metabolic encephalopathy: PLAN: Metabolic encephalopathy secondary to hypoglycemia -Resolved -Had a leukocytosis but suspect this was reactive -No localizing signs or symptoms of infection PLAN: Plan Chronic conditions: * ?hx cushings dz: -Managed by PCP-Check AM cortisol-Holding mifepristone-May need further w/u as an outpt * Type 2 diabetes mellitus: -Reportedly takes Tresiba 33 units twice daily at home as well as 3 times daily short acting-Sliding scale insulin and glucose checks-Given her hypoglycemia and poor p.o. intake will start with sliding sc memo and add long-acting pending glucose-Patient checks glucose occasionally once a day, may benefit from establishing with endocrinology and/or continuous glucose monitor if available * Hypothyroidism-Check TSH-Synthroid DVT ppx: Heparin subcu Disposition: plan for home (pt declines C). would monitor BGT over night given hypoglycemia as I suspect that I may have to overcorrect hyperglycemia. Charges/Coding Visit Charges Inpatient E&M: 70701 Subs Hosp L2
[2023-02-07] MEDS: Dextrose 50%-Water 25 GM/50 ML DISP.SYRIN IV (07:26)
[2023-02-07 07:37] LABS: ALB/GLOB Ratio 0.6 RATIO (0.9-2.4); AST(SGOT) 17 U/L (15-37); Alanine Aminotransfer ALT/SGPT 11 U/L (13-56); Albumin, Serum 2.3 g/dL (3.2-5.0); Alkaline Phosphatase 72 U/L (45-117); Anion Gap 7 (5-15); BUN 10 mg/dL (7-18); BUN/Creat Ratio 8.9 RATIO (10-20); Calcium,Total 9.1 mg/dL (8.5-10.1); Chloride 100 mmol/L (98-107); Creatinine, Serum 1.12 mg/dL (0.55-1.02); EST Glomerular Filtration Rate 51 mL/min (>60); Est Glom Filt Rate - Afr Amer 62 mL/min (>60); Estimated Creatinine Clearance 35.77 ml/min; Globulin 3.8 g/dL (2.2-4.2); Glucose 38 mg/dL (74-106); Potassium 3.7 mmol/L (3.5-5.1); Protein, Total 6.1 g/dL (6.4-8.2); Sodium Level 139 mmol/L (136-145)
--- NOTE | 2023-02-07 07:52 | NURSING ---
This Rn went in to pt room to check 0700 blood sugar. Blood sugar reading was 33. Gave pt orange juice, ensure, crackers and peanut butter. Rechecked pt's sugar 15 minutes later and got 43. Multiple RNs attempted IV access. In the meantime, glucagon IM was given in the R deltoid. 15 minutes passed and blood sugar was 60. Continued search for IV. Blood sugar was 70 after giving oral glucose. IV access was obtained, and D50 IV was given. Blood sugar was 166 after 15 minutes. Patient resting now.
[2023-02-07 07:56] LABS: Bedside Glucose 43 mg/dL (74-106)
[2023-02-07 08:05] LABS: Bedside Glucose 60 mg/dL (74-106)
[2023-02-07 08:05] LABS: Bedside Glucose 70 mg/dL (74-106)
[2023-02-07 08:05] LABS: Bedside Glucose 166 mg/dL (74-106)
[2023-02-07 08:30] LABS: Bedside Glucose 60 mg/dL (74-106)
[2023-02-07 09:18] VITALS: BP 115/54; PULSE 90; RESP 18; TEMP 36.9; O2SAT 98
[2023-02-07] MEDS: Nystatin Powder 15gm Bottle 1 APPLIC TOPICAL ×2 (09:25→21:06)
[2023-02-07] MEDS: Pantoprazole Sodium 40 MG Tablet PO (09:25)
--- NOTE | 2023-02-07 11:15 | CASEMGMT ---
CARLOS LIRIANO Assessment: Face to Face with pt for initial transition planning/care coordination assessment. CARLOS LIRIANO introduced self and role at [facility], pt voices understanding and consents to assessment reluctantly. Pt states she doesn't have anything at home and doesn't want anything at home. Pt is A/O x4. Pt lying in bed in no distress. Care providers, pharmacy, and demographics verified/updated. Admitting Dx: general weakness PCP:Adriel Specialists: joselin Layne Pharmacy: [facility]: yes LNOK: Hero Rivera, ; Lilian Kitchen, dtr Living Arrangements: Pt lives with in a two story home (only uses main level) with 5 steps to enter with a rail. Pt reports she needs some help with ADL's but would not elaborate. Pt reports she will be living with her dtr for 4-5mos while they have their home remodeled. Transportation: Pt provides transportation, pt does not drive. DME/HHC/SNF: Pt denies having any DME in the home other than a BGM with sufficient supplies and insulin. Noted board states up x1 with walker. Pt states she doesn't have one nor does she want one. Pt denies having HHC prior and states she has been to a SNF in [place]. Pt states no concerns with going home at time of dc. She is aware that therapy recommended HHC, she declines. Discussed also having a nurse for HHC to monitor blood sugars, pt declines. Discussed a CGM as suggested in the hospitalist progress note, pt states she does not need one. Discussed the benefit of this with her blood sugars, pt again declines. Pt states no further concerns/needs. CM to follow. Advised pt to ask CM if any further question/concerns/needs arise, voices understanding. Pt Goal: Home Plan: Home, pt declines HHC or any AD.
[2023-02-07] MEDS: Insulin Lispro 100 UNIT/ML INSULN.PEN SC (11:27)
[2023-02-07 11:40] LABS: Bedside Glucose 393 mg/dL (74-106)
[2023-02-07 13:09] LABS: Hemoglobin A1c 9.2 % (3.8-5.6)
[2023-02-07 14:39] VITALS: BP 101/47; PULSE 89; RESP 18; TEMP 36.3; O2SAT 93
[2023-02-07 17:10] LABS: Bedside Glucose 213 mg/dL (74-106)
[2023-02-07 19:41] VITALS: O2SAT 93
[2023-02-07 21:00] VITALS: BP 114/53; PULSE 83; RESP 16; TEMP 36.9; O2SAT 94
[2023-02-07 21:31] LABS: Bedside Glucose 212 mg/dL (74-106)
[2023-02-08 02:53] VITALS: BP 117/63; PULSE 77; RESP 18; TEMP 36.8; O2SAT 94
[2023-02-08 06:00] VITALS: BMI 30.7
[2023-02-08] MEDS: Levothyroxine 50 MCG Tablet PO (06:25)
[2023-02-08] MEDS: Heparin Injection (Vial) 5,000 UNIT/ML VIAL 5000 UNIT SC (06:25)
[2023-02-08 06:50] LABS: Bedside Glucose 81 mg/dL (74-106)
--- NOTE | 2023-02-08 07:18 | PN.HOSP_ITS ---
Reason for Visit Reason for Visit: Diagnoses Hypoglycemia, unspecified (02/07/23) Metabolic encephalopathy (02/07/23) Acute kidney failure, unspecified (02/07/23) Weakness (02/07/23) Subjective Subjective No events overnight. Feels well Objective Data Objective Data Vital Signs: Vital Signs Temp Pulse Resp BP Pulse Ox O2 Del Method 36.8 C 77 18 117/63 94 Room Air 02/08/23 02:53 02/08/23 02:53 02/08/23 02:53 02/08/23 02:53 02/08/23 02:53 02/08/23 02:54 Oxygen Delivery Method Room Air Weight: 73.8 kg Body Mass Index (BMI) 30.7 Intake & Output: Intake and Output for Last 24 Hours 02/06/23 02/07/23 02/08/23 23:59 23:59 23:59 Intake Total 500 / 650 400 / 400 Balance 500 / 650 400 / 400 Lab / Micro Data Result Diagrams: 02/07/23 06:05 02/08/23 06:05 Labs: Laboratory Results - last 24 hr 02/06/23 11:27: POC Glucose 60 L 02/07/23 06:05: Sodium 139, Potassium 3.7, Chloride 100, Carbon Dioxide 32.0, Anion Gap 7, BUN 10, Creatinine 1.12 H, Estim Creat Clear Calc 35.77, Est GFR (MDRD) Af Amer 62, Est GFR (MDRD) Non-Af 51 L, BUN/Creatinine Ratio 8.9 L, Glucose 38 L*, Calcium 9.1, Total Bilirubin 0.90, AST 17, ALT 11 L, Alkaline Phosphatase 72, Total Protein 6.1 L, Albumin 2.3 L, Globulin 3.8, Albumin/Globulin Ratio 0.6 L 02/07/23 06:05: Cortisol 71.10 H 02/07/23 06:05: Hemoglobin A1c 9.2 H 02/07/23 06:46: POC Glucose 43 L* 02/07/23 07:08: POC Glucose 60 L 02/07/23 07:22: POC Glucose 70 L 02/07/23 07:45: POC Glucose 166 H 02/07/23 11:11: POC Glucose 393 H 02/07/23 16:42: POC Glucose 213 H 02/07/23 21:04: POC Glucose 212 H 02/08/23 06:18: POC Glucose 81 Micro: Microbiology 02/06/23 15:47 Nasal Secretion SARS-CoV-2 & FLU Antigen (Rapid) - Final Physical Exam Const alert and no apparent distress Resp normal respiratory effort, no retractions, no use of accessory muscles and clear to auscultation bilaterally Cardio regular rate, regular rhythm, S1 normal heart sound and S2 normal heart sound GI normal to inspection, nondistended, normoactive bowel sounds, soft to palpation, non-tender and non-distended Assessment & Plan Assessment/Plan (1) Generalized weakness: PLAN: Progressive Likely multifactorial TSH and CK WNL, Rapid COVID 19 and influenza negative PT OT eval and treat (2) Hypoglycemia: PLAN: Iatrogenic from Jardiance, basal and prandial insulin, but also likely due to poor oral intake. received glucagon 02/07 AM. a1c 9.2 resume basal insulin, but daily instead of BID, hold scheduled lispo and jardiance. Patient is comfortable checking her blood sugar at home. (3) BALDO (acute kidney injury): PLAN: Resolved Creatinine has been elevated since November, but was normal in October (0.72) Furosemide held. (4) Metabolic encephalopathy: PLAN: Metabolic encephalopathy secondary to hypoglycemia -Resolved -Had a leukocytosis but suspect this was reactive -No localizing signs or symptoms of infection PLAN: Plan Chronic conditions: * ?hx cushings dz: -Managed by PCP-AM cortisol 71. Resume mifepristone * Type 2 diabetes mellitus: -as above * Hypothyroidism-Check TSH-Synthroid DVT ppx: Heparin subcu Disposition: plan for home (pt declines HHC).
[2023-02-08 07:19] LABS: Anion Gap 6 (5-15); BUN 9 mg/dL (7-18); BUN/Creat Ratio 8.7 RATIO (10-20); Calcium,Total 8.7 mg/dL (8.5-10.1); Chloride 102 mmol/L (98-107); Creatinine, Serum 1.04 mg/dL (0.55-1.02); EST Glomerular Filtration Rate 56 mL/min (>60); Est Glom Filt Rate - Afr Amer 67 mL/min (>60); Estimated Creatinine Clearance 38.52 ml/min; Glucose 91 mg/dL (74-106); Potassium 3.8 mmol/L (3.5-5.1); Sodium Level 138 mmol/L (136-145)
[2023-02-08] MEDS: Pantoprazole Sodium 40 MG Tablet PO (09:00)
[2023-02-08] MEDS: Nystatin Powder 15gm Bottle 1 APPLIC TOPICAL (09:00)
--- NOTE | 2023-02-08 09:03 | DCINST_ITS ---
Discharge Instructions Diet Discharge Diet: 2000 Calorie Control Diet Dressing / Incision Call your doctor if you observe: Fainting spells and - Follow Up Care Test Results: Test results from this visit will be discussed in further detail at your follow- up appointment, if applicable. Discharge Plan Admission Admit Date/Time: 02/07/23 15:18 Primary Reason for Your Visit: hypoglycemia Attending Provider: Bob Eisenberg Primary Care Provider: Crow Morel [employer] Providers: Yaz Kat Instructions Additional Instructions / Restrictions: Check her blood sugar twice daily. Notify physician if blood sugar greater than 400 or less than 60. Discharge Orders/Prescriptions Prescriptions: Continued furosemide 40 mg tablet 40 mg PO DAILY calcium carbonate-vitamin D3 600 mg-10 mcg (400 unit) tablet 1 tab PO DAILY atorvastatin 40 MG tablet 40 mg PO QHS pantoprazole 40 MG tablet,delayed release (DR/EC) 40 mg PO DAILY potassium chloride 20 mEq Tablet,Er Particles/Crystals 40 meq PO TID levothyroxine 50 mcg tablet 50 mcg PO DAILY ferrous fumarate-vit C-vit B12 1 gummy PO/SL DAILY ondansetron 4 mg tablet,disintegrating 4 mg PO Q8H PRN PRN (Reason: Nausea) Qty: 10 0RF Changed insulin degludec [Tresiba FlexTouch U-200] 200 unit/mL (3 mL) insulin pen 33 unit subcut DAILY Qty: 9 0RF Discontinued Korlym 300 mg tablet 600 mg PO DAILY insulin lispro [Humalog KwikPen Insulin] 100 unit/mL insulin pen 22 unit subcut TIDCM Jardiance 10 mg tablet 10 mg PO DAILY Referrals / Follow Up: Crow Morel Chi, MD [Primary Care Provider] - Within 2 Weeks Disposition Disposition (needs filled in before D/C Order can be placed): Home, Self Care
--- NOTE | 2023-02-08 09:08 | PCM.DC.SUM ---
Providers Date of Admission: 02/07/23 Primary Care Physician: Dr. Crow Morel MD Reason For Visit: GEN WEAKNESS Diagnosis Discharge Diagnosis (1) Generalized weakness: Status: Acute Code(s): R53.1 - Weakness Plan: Progressive Likely multifactorial TSH and CK WNL, Rapid COVID 19 and influenza negative PT OT eval and treat (2) Hypoglycemia: Status: Acute Code(s): E16.2 - Hypoglycemia, unspecified Plan: Iatrogenic from Jardiance, basal and prandial insulin, but also likely due to poor oral intake. received glucagon 02/07 AM. a1c 9.2 resume basal insulin, but daily instead of BID, hold scheduled lispo and jardiance. Patient is comfortable checking her blood sugar at home. (3) BALDO (acute kidney injury): Status: Acute Code(s): N17.9 - Acute kidney failure, unspecified Plan: Resolved Creatinine has been elevated since November, but was normal in October (0.72) Furosemide held. (4) Metabolic encephalopathy: Status: Acute Code(s): G93.41 - Metabolic encephalopathy Plan: Metabolic encephalopathy secondary to hypoglycemia -Resolved -Had a leukocytosis but suspect this was reactive -No localizing signs or symptoms of infection Plan Chronic conditions: ?hx cushings dz: -Managed by PCP-AM cortisol 71. Resume mifepristone Type 2 diabetes mellitus: -as above Hypothyroidism-Check TSH-Synthroid DVT ppx: Heparin subcu Disposition: plan for home (pt declines [facility]). Medications at Discharge Home Medications atorvastatin 40 mg tablet 40 mg PO QHS Cholesterol 01/06/20 pantoprazole 40 mg tablet,delayed release 40 mg PO DAILY Gerd 09/10/20 calcium carbonate 600 mg-vitamin D3 10 mcg (400 unit) tablet 1 tab PO DAILY SUPPLEMENT 03/08/22 furosemide 40 mg tablet 40 mg PO DAILY FLUID 07/16/22 potassium chloride 20 mEq tablet,extended release(part/cryst) 40 meq PO TID SUPPLEMENT 10/25/22 ferrous fumarate-vit C-vit B12 1 gummy PO/SL DAILY SUPPLEMENT 01/25/23 levothyroxine 50 mcg tablet 50 mcg PO DAILY THYROID 01/25/23 ondansetron 4 mg disintegrating tablet 4 mg PO Q8H PRN PRN Nausea #10 tabs 01/25/23 insulin degludec 200 unit/mL (3 mL) subcutaneous pen (Tresiba FlexTouch U-200 insulin) 33 unit (0.165 mL) subcut DAILY DIABETES #9 mL 02/08/23 Hospital Course Operations None Procedures None Summary of Care Provided Minutes Spent on Discharge: 32 Hospital Course: 67-year-old female presents with weakness and hypoglycemia. Patient was on 33 units Tresiba twice a day, 20 units of NovoLog 3 times a day, Jardiance and mifepristone. Patient did require glucagon while she was here. Patient is overall feeling well. She was evaluated by therapy and recommended home health care, however, the patient declined. Patient blood sugar has improved. Patient will continue with her Tresiba 33 units but only daily. In the meantime, patient will hold her NovoLog, Jardiance and Mifepristone. Weight / BMI Weight Weight: 73.8 kg Body Mass Index (BMI) 30.7 ABG / Lab / Microbiology Data Result Diagrams: 02/07/23 06:05 02/08/23 06:05 Laboratory: Laboratory Results - last 24 hr 02/07/23 06:05: Hemoglobin A1c 9.2 H 02/07/23 11:11: POC Glucose 393 H 02/07/23 16:42: POC Glucose 213 H 02/07/23 21:04: POC Glucose 212 H 02/08/23 06:05: Sodium 138, Potassium 3.8, Chloride 102, Carbon Dioxide 30.0, Anion Gap 6, BUN 9, Creatinine 1.04 H, Estim Creat Clear Calc 38.52, Est GFR (MDRD) Af Amer 67, Est GFR (MDRD) Non-Af 56 L, BUN/Creatinine Ratio 8.7 L, Glucose 91, Calcium 8.7 02/08/23 06:18: POC Glucose 81 Microbiology: Microbiology 02/06/23 15:47 Nasal Secretion SARS-CoV-2 & FLU Antigen (Rapid) - Final D/C Instructions Discharge Diet: 2000 Calorie Control Diet Call your doctor if you observe: Fainting spells and - Meaningful Use Info Meaningful Use Diagnoses (Choose all that apply): None applicable Discharge Plan Admission Admit Date/Time: 02/07/23 15:18 Primary Reason for Your Visit: hypoglycemia Attending Provider: Bob Eisenberg Primary Care Provider: Crow Morel Chi Consulting Providers: Yaz Kat Instructions Additional Instructions / Restrictions: Check her blood sugar twice daily. Notify physician if blood sugar greater than 400 or less than 60. Discharge Orders/Prescriptions Prescriptions: Continued furosemide 40 mg tablet 40 mg PO DAILY calcium carbonate-vitamin D3 600 mg-10 mcg (400 unit) tablet 1 tab PO DAILY atorvastatin 40 MG tablet 40 mg PO QHS pantoprazole 40 MG tablet,delayed release (DR/EC) 40 mg PO DAILY potassium chloride 20 mEq Tablet,Er Particles/Crystals 40 meq PO TID levothyroxine 50 mcg tablet 50 mcg PO DAILY ferrous fumarate-vit C-vit B12 1 gummy PO/SL DAILY ondansetron 4 mg tablet,disintegrating 4 mg PO Q8H PRN PRN (Reason: Nausea) Qty: 10 0RF Changed insulin degludec [Tresiba FlexTouch U-200] 200 unit/mL (3 mL) insulin pen 33 unit subcut DAILY Qty: 9 0RF Discontinued Korlym 300 mg tablet 600 mg PO DAILY insulin lispro [Humalog KwikPen Insulin] 100 unit/mL insulin pen 22 unit subcut TIDCM Jardiance 10 mg tablet 10 mg PO DAILY Referrals / Follow Up: Crow Morel Chi, MD [Primary Care Provider] - Within 2 Weeks Disposition Disposition (needs filled in before D/C Order can be placed): Home, Self Care Charges/Coding Visit Charges Inpatient E&M: 90653 Disch Hosp >30min
[2023-02-08] MEDS: Insulin Glargine-YFGN 100 UNIT/ML Pen 33 UNIT SC (09:09)
[2023-02-08 09:15] VITALS: BP 109/65; PULSE 82; RESP 18; TEMP 36.8; O2SAT 98
--- NOTE | 2023-02-08 10:28 | CASEMGMT ---
Updated hospitalist in rounds that pt has denied any services at home or CGM. Pt to dc today.
--- NOTE | 2023-02-08 11:00 | PHA.DC.MR ---
Pharmacy Service has performed discharge medication reconciliation for this patient. The patient's discharge medication list was reviewed for discrepancies and discrepancies were resolved. Home Medications atorvastatin 40 mg tablet 40 mg PO QHS Cholesterol 01/06/20 pantoprazole 40 mg tablet,delayed release 40 mg PO DAILY Gerd 09/10/20 calcium carbonate 600 mg-vitamin D3 10 mcg (400 unit) tablet 1 tab PO DAILY SUPPLEMENT 03/08/22 furosemide 40 mg tablet 40 mg PO DAILY FLUID 07/16/22 potassium chloride 20 mEq tablet,extended release(part/cryst) 40 meq PO TID SUPPLEMENT 10/25/22 ferrous fumarate-vit C-vit B12 1 gummy PO/SL DAILY SUPPLEMENT 01/25/23 levothyroxine 50 mcg tablet 50 mcg PO DAILY THYROID 01/25/23 ondansetron 4 mg disintegrating tablet 4 mg PO Q8H PRN PRN Nausea #10 tabs 01/25/23 insulin degludec 200 unit/mL (3 mL) subcutaneous pen (Tresiba FlexTouch U-200 insulin) 33 unit (0.165 mL) subcut DAILY DIABETES #9 mL 02/08/23
[2023-02-08 11:30] LABS: Bedside Glucose 141 mg/dL (74-106)
[2023-02-08 15:21] VITALS: BP 123/60; PULSE 91; RESP 18; TEMP 36.7; O2SAT 98
== END 2023-02-08 15:20 | disposition home or self-care (01) | DRG 637 ==
LOC: ED 14:59 → MS3 15:39
PROVIDERS: Admitting Provider Internal Medicine; Emergency Provider Emergency Medicine; PCP Family Medicine Geriatric Medicine
DX: E11.649 Type 2 diabetes mellitus with hypoglycemia without coma (principal); G93.41 Metabolic encephalopathy; E24.9 Cushing's syndrome, unspecified; N17.9 Acute kidney failure, unspecified; E11.22 Type 2 diabetes mellitus with diabetic chronic kidney disease; N18.32 Chronic kidney disease, stage 3b; Z79.4 Long term (current) use of insulin; E78.5 Hyperlipidemia, unspecified; E03.9 Hypothyroidism, unspecified; G47.33 Obstructive sleep apnea (adult) (pediatric); R53.1 Weakness
CPT/HCPCS: 36415; 80048; 80053; 81001; 82533; 82550; 82962; 83036; 84443; 85025; 87428; 94668; 97162; 97166; 99252; 99285; J7030; A4216; G0463; J1610

== ENCOUNTER → 2023-03-18 | Outpatient (CLI) | payer MEDICARE, BC, SELFPAY ==
[2023-03-18 11:20] LABS: Albumin, Serum 3.3 g/dL (3.2-5.0); BUN 15 mg/dL (7-18); Calcium,Total 9.4 mg/dL (8.5-10.1); Chloride 99 mmol/L (98-107); Creatinine, Serum 1.67 mg/dL (0.55-1.02); EST Glomerular Filtration Rate 32 mL/min (>60); Est Glom Filt Rate - Afr Amer 39 mL/min (>60); Glucose 290 mg/dL (74-106); Phosphorus 2.5 mg/dL (2.5-4.9); Potassium 5.4 mmol/L (3.5-5.1); Sodium Level 134 mmol/L (136-145); Thyroid Stim Hormone (TSH) 3.96 uIU/mL (0.358-3.74)
== END | disposition home or self-care (01) ==
PROVIDERS: PCP Family Medicine Geriatric Medicine; Referring Provider Internal Medicine Nephrology; Visit Provider Internal Medicine Nephrology
DX: E03.9 Hypothyroidism, unspecified (principal); N18.31 Chronic kidney disease, stage 3a
CPT/HCPCS: 36415; 80069; 84443

== ENCOUNTER → 2023-03-23 | Outpatient (CLI) | payer MEDICARE, BC, SELFPAY ==
[2023-03-23 13:09] LABS: Absolute Lymphocyte Count 1.69 X10^3/uL (0.83-4.51); Absolute Neutrophil Count 4.1 X10^3/uL (2.0-7.7); Basophil# 0.03 X10^3/uL; Basophil% 0.5 % (0-1); Eosinophil# 0.16 X10^3/uL; Eosinophils% 2.5 % (0-5); Hematocrit 38.6 % (37-47); Hemoglobin 12.7 g/dL (12.0-15.0); Lymphocyte # 1.69 X10^3/ul (0.83-4.51); Lymphocyte % 26.2 % (19-41); Mean Corp Hgb Conc 32.9 g/dL (32-36); Mean Corpuscular Hgb 28.7 pg (27.0-32.0); Mean Corpuscular Volume 87.1 fL (81-99); Mean Platelet Vol. 11.6 fl (6.2-12.0); Monocyte# 0.42 X10^3/uL; Monocyte% 6.5 % (0-10); NRBC Flagged by Analyzer 0 % (0-5); Neutrophil # 4.14 X10^3/uL (2.7-7.7); Platelet Count 278 K/mm3 (150-450); RBC Distribution Width CV 13.7 % (11.6-14.6); RBC Distribution Width SD 43.8 fl (35.1-43.9); Red Blood Count 4.43 M/mm3 (4.2-5.4); White Blood Count 6.5 K/mm3 (4.4-11.0)
[2023-03-23 13:46] LABS: ALB/GLOB Ratio 0.8 RATIO (0.9-2.4); AST(SGOT) 15 U/L (15-37); Alanine Aminotransfer ALT/SGPT 16 U/L (13-56); Albumin, Serum 3.3 g/dL (3.2-5.0); Alkaline Phosphatase 123 U/L (45-117); Anion Gap 6 (5-15); BUN 20 mg/dL (7-18); BUN/Creat Ratio 12.4 RATIO (10-20); Calcium,Total 9.7 mg/dL (8.5-10.1); Chloride 95 mmol/L (98-107); Creatinine, Serum 1.61 mg/dL (0.55-1.02); EST Glomerular Filtration Rate 34 mL/min (>60); Est Glom Filt Rate - Afr Amer 41 mL/min (>60); Globulin 4.1 g/dL (2.2-4.2); Glucose 232 mg/dL (74-106); Protein, Total 7.4 g/dL (6.4-8.2); Sodium Level 132 mmol/L (136-145)
== END | disposition home or self-care (01) ==
LOC: POLAB3 11:05
PROVIDERS: PCP Family Medicine Geriatric Medicine; Visit Provider Family Medicine Geriatric Medicine
DX: E55.9 Vitamin D deficiency, unspecified (principal); E11.65 Type 2 diabetes mellitus with hyperglycemia; R53.83 Other fatigue
CPT/HCPCS: 36415; 80053; 82306; 84443; 85025

== ENCOUNTER → 2023-06-17 | Outpatient (CLI) | payer MEDICARE, BC, SELFPAY ==
[2023-06-17 13:00] LABS: Absolute Lymphocyte Count 1.88 X10^3/uL (0.83-4.51); Absolute Neutrophil Count 2.8 X10^3/uL (2.0-7.7); Basophil# 0.02 X10^3/uL; Basophil% 0.4 % (0-1); Eosinophil# 0.09 X10^3/uL; Eosinophils% 1.7 % (0-5); Hematocrit 37.2 % (37-47); Hemoglobin 12.1 g/dL (12.0-15.0); Lymphocyte # 1.88 X10^3/ul (0.83-4.51); Lymphocyte % 35.8 % (19-41); Mean Corp Hgb Conc 32.5 g/dL (32-36); Mean Corpuscular Hgb 28.9 pg (27.0-32.0); Mean Platelet Vol. 11.4 fl (6.2-12.0); Monocyte# 0.43 X10^3/uL; Monocyte% 8.2 % (0-10); NRBC Flagged by Analyzer 0 % (0-5); Neutrophil # 2.82 X10^3/uL (2.7-7.7); Neutrophil % 53.7 % (47-70); Platelet Count 260 K/mm3 (150-450); RBC Distribution Width CV 14.2 % (11.6-14.6); RBC Distribution Width SD 45.9 fl (35.1-43.9); Red Blood Count 4.18 M/mm3 (4.2-5.4); White Blood Count 5.3 K/mm3 (4.4-11.0)
[2023-06-17 13:26] LABS: ALB/GLOB Ratio 0.9 RATIO (0.9-2.4); AST(SGOT) 20 U/L (15-37); Alanine Aminotransfer ALT/SGPT 22 U/L (13-56); Albumin, Serum 3.3 g/dL (3.2-5.0); Alkaline Phosphatase 113 U/L (45-117); Anion Gap 6 (5-15); BUN 14 mg/dL (7-18); Calcium,Total 9.1 mg/dL (8.5-10.1); Chloride 96 mmol/L (98-107); Creatinine, Serum 1.56 mg/dL (0.55-1.02); EST Glomerular Filtration Rate 35 mL/min (>60); Est Glom Filt Rate - Afr Amer 42 mL/min (>60); Globulin 3.8 g/dL (2.2-4.2); Glucose 277 mg/dL (74-106); Potassium 3.9 mmol/L (3.5-5.1); Protein, Total 7.1 g/dL (6.4-8.2); Sodium Level 135 mmol/L (136-145); Thyroid Stim Hormone (TSH) 4.53 uIU/mL (0.358-3.74)
== END | disposition home or self-care (01) ==
PROVIDERS: PCP Family Medicine Geriatric Medicine; Visit Provider Family Medicine Geriatric Medicine
DX: E11.65 Type 2 diabetes mellitus with hyperglycemia (principal); R53.83 Other fatigue; E55.9 Vitamin D deficiency, unspecified
CPT/HCPCS: 36415; 80053; 82306; 84443; 85025

== ENCOUNTER → 2023-09-20 | Outpatient (CLI) | payer MEDICARE, BC, SELFPAY ==
[2023-09-20 08:50] LABS: Potassium 3.4 mmol/L (3.5-5.1)
[2023-09-20 16:44] LABS: Albumin, Serum 3.4 g/dL (3.2-5.0); BUN 23 mg/dL (7-18); Chloride 97 mmol/L (98-107); Creatinine, Serum 1.44 mg/dL (0.55-1.02); EST Glomerular Filtration Rate 38 mL/min (>60); Est Glom Filt Rate - Afr Amer 46 mL/min (>60); Glucose 338 mg/dL (74-106); Phosphorus 2.3 mg/dL (2.5-4.9); Sodium Level 139 mmol/L (136-145)
== END | disposition home or self-care (01) ==
LOC: LAB 08:06
PROVIDERS: PCP Family Medicine Geriatric Medicine; Referring Provider Internal Medicine Nephrology; Visit Provider Internal Medicine Nephrology
DX: N18.31 Chronic kidney disease, stage 3a (principal)
CPT/HCPCS: 36415; 80069; 84132

== ENCOUNTER → 2023-09-27 | Outpatient (CLI) | payer MEDICARE, BC, SELFPAY ==
[2023-09-27 11:18] LABS: Absolute Lymphocyte Count 1.63 X10^3/uL (0.83-4.51); Absolute Neutrophil Count 3.2 X10^3/uL (2.0-7.7); Basophil# 0.05 X10^3/uL; Basophil% 0.9 % (0-1); Eosinophils% 6.9 % (0-5); Hematocrit 38.6 % (37-47); Hemoglobin 12.5 g/dL (12.0-15.0); Lymphocyte # 1.63 X10^3/ul (0.83-4.51); Lymphocyte % 28.2 % (19-41); Mean Corp Hgb Conc 32.4 g/dL (32-36); Mean Corpuscular Volume 89.6 fL (81-99); Mean Platelet Vol. 11.4 fl (6.2-12.0); Monocyte# 0.48 X10^3/uL; Monocyte% 8.3 % (0-10); NRBC Flagged by Analyzer 0 % (0-5); Neutrophil % 55.5 % (47-70); Platelet Count 296 K/mm3 (150-450); RBC Distribution Width CV 13.6 % (11.6-14.6); RBC Distribution Width SD 44.7 fl (35.1-43.9); Red Blood Count 4.31 M/mm3 (4.2-5.4); White Blood Count 5.8 K/mm3 (4.4-11.0)
[2023-09-27 11:38] LABS: Vitamin D,25 Hydroxy 38.1 ng/mL
[2023-09-27 11:41] LABS: ALB/GLOB Ratio 0.9 RATIO (0.9-2.4); AST(SGOT) 17 U/L (15-37); Alanine Aminotransfer ALT/SGPT 21 U/L (13-56); Albumin, Serum 3.3 g/dL (3.2-5.0); Alkaline Phosphatase 114 U/L (45-117); Anion Gap 5 (5-15); BUN 17 mg/dL (7-18); BUN/Creat Ratio 12.7 RATIO (10-20); Chloride 96 mmol/L (98-107); Creatinine, Serum 1.34 mg/dL (0.55-1.02); EST Glomerular Filtration Rate 42 mL/min (>60); Est Glom Filt Rate - Afr Amer 50 mL/min (>60); Globulin 3.7 g/dL (2.2-4.2); Glucose 296 mg/dL (74-106); Potassium 3.4 mmol/L (3.5-5.1); Sodium Level 138 mmol/L (136-145); Thyroid Stim Hormone (TSH) 3.66 uIU/mL (0.358-3.74)
== END | disposition home or self-care (01) ==
LOC: POLAB3 10:19
PROVIDERS: PCP Family Medicine Geriatric Medicine; Visit Provider Family Medicine Geriatric Medicine
DX: E11.65 Type 2 diabetes mellitus with hyperglycemia (principal); R53.83 Other fatigue; E55.9 Vitamin D deficiency, unspecified
CPT/HCPCS: 36415; 80053; 82306; 84443; 85025

== ENCOUNTER → 2023-11-16 | Outpatient (CLI) | payer MEDICARE, BC, SELFPAY ==
[2023-11-16 17:08] LABS: Anion Gap 5 (5-15); BUN 27 mg/dL (7-18); BUN/Creat Ratio 16.6 RATIO (10-20); Calcium,Total 9.2 mg/dL (8.5-10.1); Chloride 97 mmol/L (98-107); Creatinine, Serum 1.63 mg/dL (0.55-1.02); EST Glomerular Filtration Rate 33 mL/min (>60); Est Glom Filt Rate - Afr Amer 40 mL/min (>60); Glucose 153 mg/dL (74-106); Potassium 4.5 mmol/L (3.5-5.1); Sodium Level 137 mmol/L (136-145)
== END | disposition home or self-care (01) ==
LOC: POLAB3 16:16
PROVIDERS: PCP Family Medicine Geriatric Medicine; Visit Provider Family Medicine Geriatric Medicine
DX: E87.6 Hypokalemia (principal)
CPT/HCPCS: 36415; 80048

== ENCOUNTER 2023-11-30 16:10 | Emergency (ER) | payer MEDICARE, BC, SELFPAY ==
[2023-11-30 16:10] VITALS: BP 130/64; PULSE 79; RESP 16; TEMP 36.2; O2SAT 95; BMI 29.2
[2023-11-30 17:17] LABS: Bacteria 0 SEEN /hpf (None Seen); Mucous, Urine 0 SEEN /hpf (<or=2+); Red Blood Cells-Urine 0 SEEN /hpf (0-5); Squamous Epithelial Cells - UA 0 SEEN /hpf (5-10); White Blood Cells 0 SEEN /hpf (0-5)
--- OUTSIDE RECORDS SUMMARY | 2023-11-30 17:20 | XMS RPT_ITS | CCD ---
Author Name Unknown Address [address] [place] [address] Organization [facility] Care Team Providers Care Volunteer Coordinator Name Role Phone Mary Carrera NP Unavailable Shanika Pope LPN Unavailable Unavailable Kapil Carbajal Unavailable Unavailable Chris Bloom Unavailable Unavailable Chris Bloom Unavailable Unavailable Shanika Pope LPN Unavailable Unavailable Unavailable Primary Care Provider Unavaildeacon Morel MD, Jesus Manuel Chi Primary Care Provider Lisseth, Jesus Manuel-Chi Unavailable Silvana Orlando Unavailable Unavailable LISSETH, JESUS MANUEL CHI Primary Care Unavailable DANY NEWMAN Attending Unavaila ble Lisseth, Jesus Manuel Chi Primary Care Provider LISSETH, JESUS MANUEL CHI Admitting Unavailable SUKUMAR DOYLE Attending Unavailable LISSETH, JESUS MANUEL CHI Referring Unavailable LISSETH, JESUS MANUEL CHI Primary Care Unavailable LISSETH, JESUS MANUEL CHI Admitting Unavailable ABY VANCE Attending Unavailable LISSETH, JESUS MANUEL CHI Referring Unavailable LISSETH, JESUS MANUEL CHI Primary Care Unavailable LISSETH, JESUS MANUEL CHI Admitting Unavailable SUKUMAR DOYLE Attending Unavailable LISSETH, JESUS MANUEL CHI Referring Unavailable LISSETH, JESUS MANUEL CHI Primary Care Unavailable FRED HDZ Attending Unavailable LISSETH, JESUS MANUEL CHI Primary Care Unavailable LISSETH, JESUS MANUEL CHI Admitting Unavailable LESLEY WALTERS Attending Unavailable LISSETH, JESUS MANUEL CHI Referring Unavailable LISSETH, JESUS AMNUEL CHI Primary Care Unavailable LISSETH, JESUS MANUEL CHI Admitting Unavailable PENNY DEWITT Attending Unavailable LISSETH, JESUS MANUEL CHI Referring Unavailable LISSETH, JESUS MANUEL CHI Primary Care Unavailable LISSETH, JESUS MANUEL CHI Admitting Unavailable ABY VANCE Attending Unavailable LISSETH, JESUS MANUEL CHI Referring Unavailable LISSETH, JESUS MANUEL CHI Primary Care Unavailable LISSETH, JESUS MANUEL CHI Admitting Unavailable PENNY DEWITT Attending Unavailable LISSETH, JESUS MANUEL CHI Referring Unavailable LISSETH, JESUS MANUEL CHI Primary Care Unavailable LISSETH, JESUS MANUEL CHI Admitting Unavailable MARGARITA OLIVEIRA Attending Unavailable LISSETH, JESUS MANUEL CHI Referring Unavailable LISSETH, JESUS MANUEL CHI Primary Care Unavailable LISSETH, JESUS MANUEL CHI Admitting Unavailable ABY VANCE Attending Unavailable LISSETH, JESUS MANUEL CHI Referring Unavailable LISSETH, JESUS MANUEL CHI Primary Care Unavailable LISSETH, JESUS MANUEL CHI Admitting Unavailable SUKUMAR DOYLE Attending Unavailable LISSETH, JESUS MANUEL CHI Referring Unavailable LISSETH, JESUS MANUEL CHI Primary Care Unavailable Lisseth , [facility] Primary Care Provider [phone] Lisseth, Jesus Manuel Chi Primary Care Provider [phone] Lisseth GALLEGOS, [facility] Primary Care Provider [phone] Lisseth Jesus ManuelChi Primary Care Unavailable Dr. Damian Pham Attending Unavail able Lisseth, Jesus Manuel Chi Primary Care Provider [phone] Lisseth, Jesus Manuel Chi Primary Care Provider [phone] YUAN, PHILL Referring Unavailable LISSETH, JESUS MANUEL CHI Primary Care Unavailable YUAN, PHILL Attending Unavailable YUAN, PHILL Referring Unavailable YUAN, PHILL Attending Unavailable LISSETH, JESUS MANUEL CHI Primary Care Unavailable YUAN, PHILL Referring Unavailable YUAN, PHILL Attending Unavailable LISSETH, JESUS MANUEL CHI Primary Care Unavailable YUAN, PHILL Referring Unavailable YUAN, PHILL Attending Unavailable LISSETH, JESUS MANUEL CHI Primary Care Unavailable LISSETH, JESUS MANUEL CHI Primary Care Unavailable LOVE JR., PARVEEN Attending Unavailable LISSETH, JESUS MANUEL CHI Primary Care Unavailable LOVE JR., PARVEEN Attending Unavailable LISSETH, JESUS MANUEL CHI Primary Care Unavailable LOVE JR., PARVEEN Attending Unavailable LISSETH, JESUS MANUEL CHI Primary Care Unavailable LOVE JR., PARVEEN Attending Unavailable Lisseth , [facility] Primary Care Provider LISSETH, JESUS MANUEL-CHI Primary Care Unavailable GUY MURRAY Attending Unavailable LISSETH, JESUS MANUEL-CHI Primary Care Unavailable GUY MURRAY Attending Unavailable GUY MURRAY Referring Unavailable LISSETH, JESUS MANUEL-CHI Primary Care Unavailable Allergies Allergy Classification Reported Allergen(s) Allergy Type Date of Onset Reaction(s) Facility Opioid Agonists (1 source) Codeine Drug Allergy Unknown [facility] (4 sources) Adhesive Tape; Translations: [Tape] drug allergy 7 AOF [facility] Work Phone: (20 sources) codeine; Translations: [codeine] drug allergy 2 Unknown, Other: See Comments [facility] Work Phone: (20 sources) Adhesive Tape-Silicones; Translations: [ADHESIVE TAPE-SILICONES] Propensity to adverse reactions to drug 7 Rash, Unknown [facility] (2 sources) Tape - Adhesive, Bandaids, Paper Unknown [facility] (5 sources) Adhesive Tape; Translations: [ADHESIVE TAPE (ROSINS)] Allergy to substance 7 Rash [facility] (12 sources) Adhesive agent; Translations: [ADHESIVE] Propensity to adverse reactions to drug 1 Rash [facility] Medications Current Medications Medication Drug Class(es) Dates Sig (Normalized) Sig (Original) ascorbic acid 250 mg / folic acid 1 mg / iron carbonyl 100 mg / vitamin b12 0.025 mg oral tablet (2 sources) Vitamin B12, Vitamin C iron-vit C-vit [id number] acid [phone] ie-sl-rzs-mg Tab 1 tablet every night at bedtime . 0 Active atorvastatin 40 mg oral tablet (20 sources) HMG-CoA Reductase Inhibitor Start: 08-09-2019 take 1 tablet by mouth once daily at bedtime atorvastatin (LIPITOR) 40 MG tablet Take 1 (one) tablet (40 mg total) by mouth every night at bedtime . 0 08/09/2019 Active Completed/Discontinued Medications Medication Drug Class(es) Dates Sig (Normalized) Sig (Original) 0.05 ml aflibercept 40 mg/ml injection (8 sources) Vascular Endothelial Growth Factor Inhibitor Start: 06-30-2023 End: 06-30-2023 aflibercept intravitreal injection 2 mg/0.05 mL (EYLEA) Problems Active Problems Problem Classification Problem Date Documented Date Episodic/Chronic Acute cerebrovascular disease (2 sources) Cerebrovascular accident; Translations: [Cerebral artery occlusion, unspecified with cerebral infarction] Onset: 02-04-2022 02-04-2022 Chronic Acute cerebrovascular disease (3 sources) Acute cerebrovascular disease 02-04-2022 Past or Other Problems Problem Classification Problem Date Documented Date Episodic/Chronic Blindness and vision defects (3 sources) Disorder of vision; Translations: [Unspecified visual disturbance] Onset: 12-19-2016 12-19-2016 Episodic Inflammatory diseases of female pelvic organs (4 sources) Abscess of vulva; Translations: [Abscess of vulva] Onset: 10-22-2013 10-22-2013 Episodic Mycoses (20 sources) Onychomycosis due to dermatophyte ; Translations: [Tinea unguium] Onset: 10-08-2013 Episodic Other connective tissue disease (20 sources) Pain in both feet; Translations: [Pain in right foot] Onset: 02-01-2017 Episodic Other non-traumatic joint disorders (19 sources) Shoulder pain; Translations: [Pain in left shoulder] Onset: 01-04-2022 Episodic Other non-traumatic joint disorders (20 sources) Hip pain; Translations: [Pain in left hip] Onset: 01-04-2022 Episodic Other non-traumatic joint disorders (1 source) Pain in left shoulder; Translations: [Pain in joint, shoulder region] Onset: 01-04-2022 01-04-2022 Episodic Other nutritional; endocrine; and metabolic disorders (3 sources) Body mass index (BMI) 26.0-26.9, adult; Translations: [Body mass index (BMI) 26.0-26.9, adult] Onset: 03-10-2017 03-10-2017 Episodic Results Test Name Value Interpretation Reference Range Facil ity Vital Signs Date Time Vital Sign Value Performing Clinician Facility 11-28-2023 18:30-0500 Diastolic blood pressure 105 mm[Hg] Guy Murray DO Work Phone: [facility] 11-28-2023 18:30-0500 Heart rate 89 /min Guy Murray DO Work Phone: [facility] 11-28-2023 18:30-0500 Respiratory rate 17 /min Guy Murray DO Work Phone: [facility] 11-28-2023 18:30-0500 SaO2% (BldA) [Mass fraction] 100 % Guy Murray DO Work Phone: [facility] 11-28-2023 18:30-0500 Systolic blood pressure 139 mm[Hg] Guy Murray DO Work Phone: [facility] 11-28-2023 [id number] Body temperature 37.0 degrees Celsius JESUS MANUEL-CHI LISSETH [facility] Encounters Encounter Date Encounter Type Care Provider Facility Start: 11-29-2023 End: 11-30-2023 ambulatory GUY MURRAY [facility] Start: 11-29-2023 End: 11-29-2023 Subsequent hospital visit by physician Erorl Tucker Nonv1 [facility] Procedures Date Procedure Procedure Detail Performing Clinician Start: 11-29-2023 ECG 12-LEAD JESUS MANUEL-CHI [facility] [place] Start: 11-29-2023 Ecg routine ecg w/le ast 12 lds trcg only w/o i&r Guy Murray DO Work Phone: Start: 11-28-2023 DISCHARGE PATIENT JESUS MANUEL-C HI LISSETH Start: 11-28-2023 Lactate [Moles/volum e] in Serum or Plasma JESUS MANUEL-CHI LISSETH Start: 11-28-2023 Assay of lactate Zbigniew Murray DO Work Phone: Start: 11-28-2023 SERIAL TROPONIN, 1 HOUR JESUS MANUEL-CHI LISSETH Start: 11-28-2023 CT CERVICAL SPINE WO IV CONTRAST JESUS MANUEL-CHI LISSETH Start: 11-28-2023 CT HEAD WO IV CONTRAST JESUS MANUEL-CHI L[facility]H Start: 11-28-2023 URINALYSIS MICROSCOP IC WITH REFLEX CULTURE JESUS MANUEL-CHI LISSETH Start: 11-28-2023 URINALYSIS WITH REFL EX CULTURE AND MICROSCOPIC JESUS MANUEL-CHI L[facility]H Start: 11-28-2023 INSERT STRAIGHT CATH ETER PRN JESUS MANUEL-CHI LISSETH Start: 11-28-2023 CBC W Auto Different ial panel - Blood JESUS MANUEL-CHI L[facility]H Start: 11-28-2023 Comprehensive metabo lic 2000 panel - Serum or Plasma JESUS MANUEL-CHI L[facility]H Start: 11-28-2023 EXTRA TUBES JESUS MANUEL-[facility]I [facility] Start: 11-28-2023 EXTRA URINE SUTTON TUBE T AI-CHI LISSETH Start: 11-28-2023 SST TOP JESUS MANUEL-[facility] [place] Start: 11-28-2023 TROPONIN SERIES- (IN ITIAL, 1 HR) JESUS MANUEL-[facility]I L[facility]H Start: 11-28-2023 Ammonia [Mass/volume ] in Plasma [facility] Start: 11-28-2023 Lactate [Moles/volum e] in Serum or Plasma [facility] Start: 11-28-2023 BLOOD GAS ARTERIAL [facility] Start: 11-28-2023 INITIATE DROPLET PLU S ISOLATION [facility] Start: 11-28-2023 INFLUENZA A AND B PCR [facility] Start: 11-28-2023 RSV PCR JESUS MANUEL-[employer] [facility] [place] Start: 11-28-2023 SARS-COV-2 PCR, SYMPTOMATIC [facility] Start: 11-28-2023 XR CHEST 1 VIEW [facility] Start: 11-28-2023 Glucose [Mass/volume ] in Serum or Plasma [facility] Start: 11-28-2023 Assay of troponin quantitative Guy Murray DO Work Phone: Start: 11-28-2023 Ct cervical spine w/ o contrast material Guy Murray DO Work Phone: Start: 11-28-2023 Ct head/brain w/o co ntrast material Guy Murray DO Work Phone: Start: 11-28-2023 Urinalysis complete W Reflex Culture panel - Urine Guy Murray DO Work Phone: Start: 11-28-2023 Urnls dip stick/tabl et reagent auto microscopy uGy Murray DO Work Phone: Start: 11-28-2023 End: 11-28-2023 Comprehensive metabolic panel Guy Murray DO Work Phone: Start: 11-28-2023 EXTRA TUBES Guy Murray DO Work Phone: Start: 11-28-2023 LIGHT BLUE TOP Guy Murray DO Work Phone: Start: 11-28-2023 SST TOP Guy Murray DO Work Phone: Start: 11-28-2023 Troponin I.cardiac p korey - Serum or Plasma by High sensitivity method Guy Murray DO Work Phone: Start: 11-28-2023 Gases blood ph direc t fide xcpt pulse oximitry Guy Murray DO Work Phone: Start: 11-28-2023 Influenza virus A an d B RNA [Identifier] in Unspecified specimen by BENSON with probe detection Guy Murray DO Work Phone: Start: 11-28-2023 Radiologic exam ches t single view Guy Murray DO Work Phone: Start: 11-28-2023 Respiratory syncytia l virus RNA [Presence] in Respiratory specimen by BENSON with probe detection Guy Murray DO Work Phone: Start: 11-28-2023 SARS-CoV-2 (COVID-19 ) RNA [Presence] in Respiratory specimen by BENSON with probe detection Guy Murray DO Work Phone: Start: 11-28-2023 Thyrotropin [Units/v olume] in Serum or Plasma Guy Murray DO Work Phone: Start: 11-18-2023 DISCHARGE PATIENT J[facility] MANUEL-[facility] Start: 11-18-2023 Glucose [Mass/volume ] in Serum or Plasma JESUS MANUEL-CHI L[facility]H Start: 11-18-2023 NURSING COMMUNICATIO N - DO NOT USE IN ORDER SETS JESUS MANUEL-CHI LISSETH Start: 11-18-2023 Glucose [Mass/volume ] in Serum or Plasma JESUS MANUEL-CHI L[facility]H Start: 11-18-2023 ED CRITICAL CARE JESUS MANUEL-CH I L[facility]SETH Start: 11-18-2023 Glucose quantitative blood xcpt reagent strip Guy Murray DO Work Phone: Start: 11-18-2023 Glucose quantitative blood xcpt reagent strip Guy Murray DO Work Phone: Start: 06-30-2023 End: 06-30-2023 Intravitreal njx pharmacologic agt spx Phill Cruz MD, PhD Work Phone: Start: 06-30-2023 Computerized ophthal davon imaging retina Phill Cruz MD, PhD Work Phone: Start: 03-10-2023 End: 03-10-2023 Intravitreal njx pharmacologic agt spx Phill Cruz MD, PhD Work Phone: Start: 03-10-2023 Computerized ophthal davon imaging retina Phill Cruz MD, PhD Work Phone: Start: 11-11-2022 Ophthalmic examinati on and evaluation Parveen Aleman Jr., DPM Work Phone: Start: 08-12-2022 End: 08-12-2022 Intravitreal njx pharmacologic agt spx Phill Cruz MD, PhD Work Phone: Start: 08-12-2022 Computerized ophthal davon imaging retina Phill Cruz MD, PhD Work Phone: Start: 08-12-2022 Ophthalmic examinati on and evaluation Parveen Aleman Jr., DPM Work Phone: Start: 05-27-2022 Ophthalmic examinati on and evaluation Parveen Aleman Jr., DPM Work Phone: Start: 03-18-2022 End: 03-18-2022 Intravitreal njx pharmacologic agt spx Phill Cruz MD, PhD Work Phone: Start: 03-18-2022 Computerized ophthal davon imaging retina Phill Cruz MD, PhD Work Phone: Start: 03-18-2022 Ophthalmic examinati on and evaluation Penny Dewitt [employer]TER Start: 02-04-2022 Lipid 1996 panel - S scarlett or Plasma Guy Murray DO Work Phone: Start: 02-03-2022 End: 02-03-2022 EKG impression Guy Murray Start: 12-31-2021 Ophthalmic examinati on and evaluation Sukumar Doyle PT Start: 08-13-2021 Ophthalmic examinati on and evaluation Jesus Manuel Morel MD Work Phone: Start: 06-15-2021 Hemoglobin A1c/Hemoglobin.total in Blood Jesus Manuel Morel MD Work Phone: Start: 06-10-2021 Hemoglobin A1c/Hemoglobin.total in Blood Jesus Manuel Morel MD Work Phone: Start: 08-29-2020 Hemoglobin A1c measurement Historical Provider Start: 03-10-2017 End: 03-10-2017 Dietary management education, guidance, and counseling Shanika Pope LPN Start: 03-10-2017 End: 06-12-2017 25-Hydroxyvitamin D2+25-Hydroxyvitamin D3 [Mass/volume] in Serum or Plasma Mary Jacques Carrera [employer] OPERATOR [employer]ER Work Phone: Start: 03-10-2017 End: 06-12-2017 HbA1c Mary Mcclellandolores [employer] OPERATOR [employer]ER Work Phone: Start: 03-10-2017 End: 06-12-2017 Lipid panel [AGGREGATE] Mary Jacques Carrera N P Work Phone: Start: 12-15-2016 End: 03-08-2017 *CMP Complete Metabolic Panel Mary Hanna Debi [employer] OPERATOR [employer] TENDER Work Phone: Start: 12-15-2016 End: 03-08-2017 *Microalbumin, Creatine Ratio, rand urine Mary Jacques Carrera NP Work Phone: Start: 12-15-2016 End: 03-08-2017 HbA1c Mary Mcclellandolores [employer] OPERATOR [employer]ER Work Phone: Start: 12-15-2016 End: 03-08-2017 Lipid panel [AGGREGATE] Mary Hanna Debi N P Work Phone: Start: 09-22-2016 Mammography Phill Cruz MD, PhD Work Phone: Plan of Treatment Date Care Activity Detail Author Start: 10-14-2033 DTaP/Tdap/Td Vaccines (3 - Td or Tdap) DTaP/Tdap/Td Vaccines (3 - Td or Tdap) [facility] Start: 10-14-2033 Tetanus vaccination Tetanus: Every 10yrs [facility] Start: 05-30-2029 DTaP/Tdap/Td Vaccines (2 - Td or Tdap) DTaP/Tdap/Td Vaccines (2 - Td or Tdap) [facility] Start: 05-30-2029 Tetanus vaccination Tetanus: Every 10yrs [facility] Start: 11-28-2024 Thyroid stimulating hormone measurement TSH Level [facility] Start: 09-29-2024 Glaucoma screening Diabetic Eye Exam [facility] Start: 07-14-2024 End: 12-21-2024 OCT MACULA CIRRUS OU (BOTH EYES) OCT MACULA CIRRUS OU (BOTH EYES) OPHT Imaging Routine Type 2 diabetes mellitus with both eyes affected by severe nonproliferative retinopathy and macular edema, with long-term current use of insulin (HCC) Expected: 07/14/2024, Expires: 12/21/2024 [facility] Work Phone: Immunizations Immunization Date Immunization Notes Care Provider Sherita kebede 08-28-2022 influenza virus vacc ine, unspecified formulation Guy Murray DO Work Phone: [facility] Work Phone: 09-21-2021 influenza, injectabl e, quadrivalent, contains preservative Parveen Aleman Jr., DPM Work Phone: [facility] 09-03-2020 influenza, injectabl e, quadrivalent, contains preservative Parveen Aleman Jr., DPM Work Phone: [facility] 04-03-2020 zoster vaccine recombinant Parveen Aleman Jr., DPM Work Phone: [facility] 11-02-2019 zoster vaccine recombinant Parveen Aleman Jr., DPM Work Phone: [facility] 07-09-2019 pneumococcal vaccine , unspecified formulation Parveen Aleman Jr., DPM Work Phone: [facility] 05-30-2019 pneumococcal conjuga te vaccine, 13 valent Parveen Aleman Jr., DPM Work Phone: [facility] 05-30-2019 tetanus toxoid, redu zenaida diphtheria toxoid, and acellular pertussis vaccine, adsorbed Parveen Aleman Jr., DPM Work Phone: [facility] 12-06-2017 influenza, injectabl e, quadrivalent, preservative free Parveen Aleman Jr., DPM Work Phone: [facility] 12-06-2017 pneumococcal polysaccharide vaccine, 23 valent Parveen Aleman Jr., DPM Work Phone: [facility] 09-10-2009 influenza virus vacc ine, whole virus Parveen Aleman Jr., DPM Work Phone: [facility] 10-08-2008 pneumococcal polysaccharide vaccine, 23 valent Parveen Aleman Jr., DPM Work Phone: [facility] Payers Date Payer Category Payer Unknown [employer] [facility] [id number] 2021-Present [phone] [address] [place] [address] [id number]. [id number] 2018 Medicare [id number]. [id number] 2018 Medicare [id number]. [id number] 2018 Medicare [id number] 2015 Unknown 2015 Unknown [id number] 2015 Unknown [employer] [facility] FEP PPO [id number] 2015-Present [phone] [address] [place] [address] PPO [id number]. [id number] 1953 Unknown [id number] 2.16.840.1.048611.3.579.2.903 1953 Unknown [id number] 2.16.840.1.351902.3.579.2.903 1953 Unknown [id number] 2.16.840.1.975767.3.579.2.903 1953 Unknown [id number] 2.16.840.1.103067.3.579.2.90 1953 Unknown [id number] 2.16.840.1.751827.3.579.2. 1953 Unknown [id number] 2.16.840.1.627789.3.579.2. 1953 Unknown [id number] 2.16.840.1.249094.3.579.2. 1953 Unknown [id number] 2.16.840.1.974035.3.579.2. 1953 Unknown [id number] 2.16.840.1.919440.3.579.2. 1953 Unknown [id number] 2.16.840.1.079051.3.579.2 1953 Unknown [id number] 2.16.840.1.083273.3.579.2. 1953 Unknown [id number] 2.16.840.1.756027.3.579.2. 1953 Unknown [id number] 2.16.840.1.723028.3.579.2.1068 1953 Unknown [id number] 2.16.840.1.421422.3.579.2. 1953 Unknown [id number] 2.16.840.1.948393.3.579.2. 1953 Unknown [id number] 2.16.840.1.687963.3.579.2. 1953 Unknown [id number] 2.16.840.1.385372.3.579.2. 1953 Unknown [id number] 2.16.840.1.838920.3.579.2.1242 1953 Unknown [id number] 2.16.840.1.517540.3.579.2.1242 1953 Unknown [id number] 2.16.840.1.985128.3.579.2.1243 Social History Date Type Detail Facility Start: 06-08-2021 End: 11-18-2023 Tobacco smoking status NHIS Former smoker [facility] Start: 06-08-2021 End: 11-28-2023 Alcohol intake Ex-drinker (finding) [facility] Start: 1955 Sex Assigned At Not on file [facility] Start: 07-24-2021 End: 11-11-2022 Tobacco smoking status NHIS Never smoked tobacco [facility] Start: 07-24-2021 End: 11-11-2022 Tobacco use and exposure Smokeless tobacco non-user [facility] Start: 01-11-2022 End: 11-28-2023 Exposure to SARS-CoV-2 (event) Not sure [facility] Tobacco smoking consumption unknown [facility] Start: 03-18-2022 End: 11-11-2022 Alcohol intake Current non-drinker of alcohol (finding) [facility] Start: 07-24-2021 End: 11-28-2023 Cigarette pack-years [facility] Start: 11-11-2022 End: 11-28-2023 Tobacco use panel [facility] National Score (1-10 0), lower number is lower risk 66 [facility] Start: 02-11-2022 Gender identity Identifies as female gender (finding) [facility] Start: 02-11-2022 Sexual orientation Heterosexual (finding) [facility] History of tobacco use Current smoker [facility] Work Phone: History of tobacco use Cigarette Smoker [facility] Work Phone: Medical Equipment Procedure Code Equipment Code Equipment Origin al Text Equipment Identifier Dates Test blood sugar (s) 3 times daily . [id number] Start: 05-25-2016 Functional Status Date Assessment Result Facility Functional observable [facility] Mental Status Date Assessment Result Facility 02-05-2022 Cognitive functi ons [id number] [facility] Clinical Notes 09-24-2016 to 11-28-2023 Discharge InstructionsConsultation (Routine) - Authorized Note Date & Type Note Facility 11-28-2023 Hospital Discharg e instructions Guy Murray, - 11/28/2023 6:39 PM EST I recommend the patient to drink plenty of fluids. I would recommend you follow-up with your primary care doctor concerning the elevated TSH and abnormal kidney function test. documented in this encounter [facility] Work Phone: Referral ID Status Reason Start Date Expiration Date Visits Requested Visits Authorized [id number] Authorized Specialty Services Required 11/28/2023 11/27/2024 1 1 [facility] Work Phone: 1(786) 554-355612-22-2023 Reason for referral (narrative)* Consultation (Routine) - Authorized Specialty Diagnoses / Procedures Referred By Maral cordero Referred To Contact Family Medicine / Primary Care Guy Murray DO [address] [place] [address] Referral ID Status Reason Start Date Expiration Date Visits Requested Visits Authorized [id number] Authorized Specialty Services Required 3 11/17/2024 1 1 [facility] Work Phone: 1(340) 297-756311-22-2023 History of Present illness Narrative* Parveen Aleman Jr., DPM - 10/19/2023 10:24 AM EST Nail care Patient is a pleasant 68-year-old type II diabetic female who comes in here for nail care. Her diabetes is managed by endocrinology including Dr. Morel. Her last hemoglobin A1c is 10.2% Physical Vascular: DP pulses are palpable 1 out of 4 bilaterally. PT pulses are nonpalpable bilaterally. +3 pitting edema to the foot ankle and leg. Skin is shiny atrophic dysvascular with absence of hair growth. Neuro: Light touch is absent Babinski's is absent. Musculoskeletal: Muscle strength is 5/5 with fair tone. Can easily wiggle toes not in clicking or catching. Nails left foot 79994 and right foot 82104 are elongated thickened mycotic crumbling and dystrophic. Assessment and plan Patient is a pleasant 68-year-old diabetic female with peripheral arterial disease and onychomycosis to 10 nails. -Due to patient's distal peripheral neuropathy, a long-term sequelae of her diabetes and high risk foot type, did get her prescription for diabetic shoes for protection and prevention. This is to decrease her limb loss risk score. -Given her arterial disease and neuropathy she is with elevated limb loss risk score therefore qualifies for nail care. Procedure: Nails left foot 62960 and right foot 99153 were sharply debrided and debulk in height and length with a sharp pair of nail nippers consistent with a q8 modifier. Follow-up in 3 months for foot nail care documented in this [id number] ID: [id number] Author: Phill Cruz MD, PhD Service: ? Author Type: Physician Type: Progress Notes Filed: 09/29/2023 11:51 AM Note Text: 1. Type 2 diabetes mellitus with both eyes affected by severe nonproliferative retinopathy and macular edema, with long-term current use of insulin (HCC) A1C is elevated but now has glucose monitor 2. Dry eye Told patient to use artificial tears-given today Use hot compresses 3. Posterior chamber intraocular lens (PCIOL) OU Plan: S/p eylea at 13 weeks ago both eyes with increased central edema OD Rec Eylea both eyes Decrease interval to 11 wks for full exam I have confirmed and edited as necessary the relevant ophthalmic history, ROS, and the neuro exam findings as obtained by others. I have seen and examined this patient. I have discussed the case and the management of this patient's care with the Resident/Fellow, if applicable. I also have reviewed and agree with the assessment and plan as stated above and agree with all of its relevant components. Phill Cruz [facility]08-23-2023 History of Present illness Narrative* Parveen Aleman Jr., DPM - 07/20/2023 10:45 AM EDT Nail care Patient is a pleasant 68-year-old type II diabetic female who comes in here for nail care. Her diabetes is managed by endocrinology including Dr. Morel. Her last hemoglobin A1c is 10.2% Physical Vascular: DP pulses are palpable 1 out of 4 bilaterally. PT pulses are nonpalpable bilaterally. +3 pitting edema to the foot ankle and leg. Skin is shiny atrophic dysvascular with absence of hair growth. Neuro: Light touch is absent Babinski's is absent. Musculoskeletal: Muscle strength is 5/5 with fair tone. Can easily wiggle toes not in clicking or catching. Nails left foot 55294 and right foot 40590 are elongated thickened mycotic crumbling and dystrophic. Assessment and plan Patient is a pleasant 68-year-old diabetic female with peripheral arterial disease and onychomycosis to 10 nails. -Due to patient's distal peripheral neuropathy, a long-term sequelae of her diabetes and high risk foot type, did get her prescription for diabetic shoes for protection and prevention. This is to decrease her limb loss risk score. -Given her arterial disease and neuropathy she is with elevated limb loss risk score therefore qualifies for nail care. Procedure: Nails left foot 64872 and right foot 19794 were sharply debrided and debulk in height and length with a sharp pair of nail nippers consistent with a q8 modifier. Follow-up in 3 months for foot nail care documented in this [id number] NoteHNO ID: [id number] Author: Phill Cruz MD, PhD Service: ? Author Type: Physician Type: Progress Notes Filed: 06/30/2023 11:10 AM Note Text: 1. Type 2 diabetes mellitus with both eyes affected by severe nonproliferative retinopathy and macular edema, with long-term current use of insulin (HCC) -now looks regressed to moderate/mild Stable at 16 wks Last A1C was 5, per patient, Dr. Morel told her this is too low for her Now HA1C was 10 2. Dry eye Told patient to use artificial tears-given today Use hot compresses Plan: S/p eylea at 3 mo ago with IRF OU Rec Eylea both eyes Decrease to 12-14 wks for STI Full exam Feb I have confirmed and edited as necessary the relevant ophthalmic history, ROS, and the neuro exam findings as obtained by others. I have seen and examined this patient. I have discussed the case and the management of this patient's care with the Resident/Fellow, if applicable. I also have reviewed and agree with the assessment and plan as stated above and agree with all of its relevant components. Phill Cruz [facility]08-03-2023 Instructions* Patient Instructions* Phill Cruz MD, PhD - 06/30/2023 11:10 AM EDT Post Injection Patient Information You had eye injection(s) today. These are your after injection instructions. Today: Preservative free artificial tears 1 drop every hour while awake as needed Tomorrow: Preservative free artificial tears 1 drop every 2 hours while awake as needed Care instructions after eye injections: Do not rub or touch your eye other than dabbing lightly with a tissue An arpp-xrl-wmxoyxa pain reliever (i.e. Tylenol) can be used for mild soreness Use artificial tears/lubricating drops once an hour as needed for comfort (chill the tears in the refrigerator for more comfort). If you are using the tears more than 4 times a day they need to be the preservative free kind Warm or cool compresses are okay It is okay to shower and wash your face. No swimming pools or saunas for 24 hours COMMON symptoms after successful eye injections: Mild to moderate pain or irritation beginning the day of the injection. This should begin to improve the following day. Eyelash in the eye or niko/gritty sensation Tearing Mild floaters or bubbles in your vision - usually resolves after 1-2 days Bloody tears for 1-2 days after treatment Eye Redness Also known as subconjunctival hemorrhage This bruise can cover the entire white part of the eye and may last a few weeks CONCERNING symptoms after eye injections: Severe, constant pain Worsening pain after the first day Decreased vision Severe, constant floaters Curtain or veil in your vision New eye redness that was not there after the injection and covers the whole eye Please call the office immediately for any of the above listed concerning symptoms or with any other questions. If it is after hours please call [phone] which will give instructions on how to reach the eye doctor manager investigations documented in this encounterProm[facility] History of Present illness Narrative* Phill Cruz MD, PhD - 06/30/2023 10:58 AM EDT 1. Type 2 diabetes mellitus with both eyes affected by severe nonproliferative retinopathy and macular edema, with long-term current use of insulin (HCC) -now looks regressed to moderate/mild Stable at 16 wks Last A1C was 5, per patient, Dr. Morel told her this is too low for her Now HA1C was 10 2. Dry eye Told patient to use artificial tears-given today Use hot compresses Plan: S/p eylea at 3 mo ago with IRF OU Rec Eylea both eyes Decrease to 12-14 wks for STI Full exam Fe I have confirmed and edited as necessary the relevant ophthalmic history, ROS, and the neuro exam findings as obtained by others. I have seen and examined this patient. I have discussed the case and the management of this patient's care with the Resident/Fellow, if applicable. I also have reviewed and agree with the assessment and plan as stated above and agree withall of its relevant components. Phill Cruz MD documented in this encounterPromedica [facility]04-13-2023 NoteHNO ID: [id number] Author: Phill Cruz MD, PhD Service: ? Author Type: Physician Type: Progress Notes Filed: 03/10/2023 2:46 PM Note Text: 1. Type 2 diabetes mellitus with both eyes affected by severe nonproliferative retinopathy and macular edema, with long-term current use of insulin (HCC) -now looks regressed to moderate/mild Stable at 16 wks Last A1C was 5, per patient, Dr. Morel told her this is too low for her Now HA1C was 10 2. Dry eye Told patient to use artificial tears-given today Use hot compresses Plan: S/p eylea at 4mo-with trace IRF OS Rec Eylea both eyes Keep at ~16 wks for full exam I have confirmed and edited as necessary the relevant ophthalmic history, ROS, and the neuro exam findings as obtained by others. I have seen and examined this patient. I have discussed the case and the management of this patient's care with the Resident/Fellow, if applicable. I also have reviewed and agree with the assessment and plan as stated above and agree with all of its relevant components. Phill Cruz [facility]04-13-2023 Instructions* Patient Instructions* Phill Cruz MD, PhD - 03/10/2023 2:45 PM EDT Post-Procedure Patient Information Injection [ ] You had an injection into the eye. [ ] You had an injection adjacent to the eye. Tearing and some redness are common after an eye injection. If the eye feels irritated, try to keepit closed; some patients find that a mild pain medicine such as acetaminophen helps. If tearing or pain persists the next day, please call. The redness may take some days to a week to resolve. If you notice increasing pain, redness or blurred vision, please call the office. Loss of central or peripheral vision should prompt a call to us. Please call if you have any questions or concerns. For Questions or an Appointment, please call: [phone] Visit us online at [email or web address]. documented in this encounterPromedica [facility] Hospital04-13-2023 History of Present illness Narrative* Phill Cruz MD, PhD - 03/10/2023 2:41 PM EDT 1. Type 2 diabetes mellitus with both eyes affected by severe nonproliferative retinopathy and macular edema, with long-term current use of insulin (HCC) -now looks regressed to moderate/mild Stable at 16 wks Last A1C was 5, per patient, Dr. Morel told her this is too low for her Now HA1C was 10 2. Dry eye Told patient to use artificial tears-given today Use hot compresses Plan: S/p eylea at 4mo-with trace IRF OS Rec Eylea both eyes Keep at ~16 wks for full exam I have confirmed and edited as necessary the relevant ophthalmic history, ROS, and the neuro exam findings as obtained by others. I have seen and examined this patient. I have discussed the case and the management of this patient's care with the Resident/Fellow, if applicable. I also have reviewed and agree with the assessment and plan as stated above and agree withall of its relevant components. Phill Cruz MD documented in this encounterPromedica [facility]02-22-2023 History of Present illness Narrative* Parveen Aleman Jr., LILY - 01/19/2023 11:03 AM EST Nail care Patient is a pleasant 67-year-old type II diabetic female who comes in here for nail care. Her diabetes is managed by endocrinology including Dr. Morel. Her last hemoglobin A1c is 11.0% hoping also today to get into a new set of DM shoes for protection. Physical Vascular: DP pulses are palpable 1 out of 4 bilaterally. PT pulses are nonpalpable bilaterally. +3 pitting edema to the foot ankle and leg. Skin is shiny atrophic dysvascular with absence of hair growth. Neuro: Light touch is absent Babinski's is absent. Musculoskeletal: Muscle strength is 5/5 with fair tone. Can easily wiggle toes not in clicking or catching. Nails left foot 77123 and right foot 73526 are elongated thickened mycotic crumbling and dystrophic. Assessment and plan Patient is a pleasant 67-year-old diabetic female with peripheral arterial disease and onychomycosis to 10 nails. -Due to patient's distal peripheral neuropathy, a long-term sequelae of her diabetes and high risk foot type, did get her prescription for diabetic shoes for protection and prevention. This is to decrease her limb loss risk score. -Given her arterial disease and neuropathy she is with elevated limb loss risk score therefore qualifies for nail care. Procedure: Nails left foot 64454 and right foot 42752 were sharply debrided and debulk in height and length with a sharp pair of nail nippers consistent with a q8 modifier. Follow-up in 3 months for foot nail care documented in this [id number] NoteHNO ID: [id number] Author: Phill Cruz MD, PhD Service: ? Author Type: Physician Type: Progress Notes Filed: 11/11/2022 11:38 AM Note Text: 1. Type 2 diabetes mellitus with both eyes affected by severe nonproliferative retinopathy and macular edema, with long-term current use of insulin (HCC) -now looks regressed to moderate/mild Stable at 11 wks Eylea Last A1C was 5, per patient, Dr. Morel told her this is too low for her Now HA1C was 10 2. Dry eye Told patient to use artificial tears-given today Use hot compresses Plan: S/p eylea at 3 mo-stable with trace IRF OD Rec Eylea both eyes Extend to 14-16 for sti Full exam in April I have confirmed and edited as necessary the relevant ophthalmic history, ROS, and the neuro exam findings as obtained by others. I have seen and examined this patient. I have discussed the case and the management of this patient's care with the Resident/Fellow, if applicable. I also have reviewed and agree with the assessment and plan as stated above and agree with all of its relevant components. Phill Cruz [facility]11-23-2022 History of Present illness Narrative* Parveen Aleman Jr., CHRISTOSM - 10/20/2022 10:59 AM EST Nail care Patient is a pleasant 67-year-old type II diabetic female who comes in here for nail care. Her diabetes is managed by endocrinology including Dr. Morel. Her last hemoglobin A1c is 11.0% hoping also today to get into a new set of DM shoes for protection. Physical Vascular: DP pulses are palpable 1 out of 4 bilaterally. PT pulses are nonpalpable bilaterally. +3 pitting edema to the foot ankle and leg. Skin is shiny atrophic dysvascular with absence of hair growth. Neuro: Light touch is absent Babinski's is absent. Musculoskeletal: Muscle strength is 5/5 with fair tone. Can easily wiggle toes not in clicking or catching. Nails left foot 44207 and right foot 48977 are elongated thickened mycotic crumbling and dystrophic. Assessment and plan Patient is a pleasant 67-year-old diabetic female with peripheral arterial disease and onychomycosis to 10 nails. -Due to patient's distal peripheral neuropathy, a long-term sequelae of her diabetes and high risk foot type, did get her prescription for diabetic shoes for protection and prevention. This is to decrease her limb loss risk score. -Given her arterial disease and neuropathy she is with elevated limb loss risk score therefore qualifies for nail care. Procedure: Nails left foot 73762 and right foot 23788 were sharply debrided and debulk in height and length with a sharp pair of nail nippers consistent with a q8 modifier. Follow-up in 3 months for foot nail care documented in this [id number] Instructions* Patient Instructions* Phill Cruz MD, PhD - 08/12/2022 10:23 AM EDT Post-Procedure Patient Information Injection [ ] You had an injection into the eye. [ ] You had an injection adjacent to the eye. Tearing and some redness are common after an eye injection. If the eye feels irritated, try to keepit closed; some patients find that a mild pain medicine such as acetaminophen helps. If tearing or pain persists the next day, please call. The redness may take some days to a week to resolve. If you notice increasing pain, redness or blurred vision, please call the office. Loss of central or peripheral vision should prompt a call to us. Please call if you have any questions or concerns. For Questions or an Appointment, please call: [phone] Visit us online at [email or web address]. documented in this encounterPromedica [facility]09-15-2022 History of Present illness Narrative* Phill Cruz MD, PhD - 08/12/2022 10:04 AM EDT 1. Type 2 diabetes mellitus with both eyes affected by severe nonproliferative retinopathy and macular edema, with long-term current use of insulin (HCC) Stable at 11 wks Eylea Last A1C was 5, per patient, Dr. Morel told her this is too low for her 2. Dry eye Told patient to use artificial tears-given today Use hot compresses Plan: S/p eylea at 11 wks-stable wityh trace IRF OD Rec Eylea both eyes Extend to 12-13 full exam I have confirmed and edited as necessary the relevant ophthalmic history, ROS, and the neuro exam findings as obtained by others. I have seen and examined this patient. I have discussed the case and the management of this patient's care with the Resident/Fellow, if applicable. I also have reviewed and agree with the assessment and plan as stated above and agree withall of its relevant components. Phill Cruz MD documented in this encounterPromedica [facility]08-31-2022 History of Present illness Narrative* Parveen Aleman Jr., DPM - 07/28/2022 11:14 AM EDT Nail care Patient is a pleasant 67-year-old type II diabetic female who comes in here for nail care. Her diabetes is managed by endocrinology including Dr. Morel. Her last hemoglobin A1c is 11.4% hoping also today to get into a new set of DM shoes for protection. Physical Vascular: DP pulses are palpable 1 out of 4 bilaterally. PT pulses are nonpalpable bilaterally. +3 pitting edema to the foot ankle and leg. Skin is shiny atrophic dysvascular with absence of hair growth. Neuro: Light touch is absent Babinski's is absent. Musculoskeletal: Muscle strength is 5/5 with fair tone. Can easily wiggle toes not in clicking or catching. Nails left foot 95565 and right foot 23000 are elongated thickened mycotic crumbling and dystrophic. Assessment and plan Patient is a pleasant 67-year-old diabetic female with peripheral arterial disease and onychomycosis to 10 nails. -Due to patient's distal peripheral neuropathy, a long-term sequelae of her diabetes and high risk foot type, did get her prescription for diabetic shoes for protection and prevention. This is to decrease her limb loss risk score. -Given her arterial disease and neuropathy she is with elevated limb loss risk score therefore qualifies for nail care. Procedure: Nails left foot 93142 and right foot 37631 were sharply debrided and debulk in height and length with a sharp pair of nail nippers consistent with a q8 modifier. Follow-up in 3 months for foot nail care documented in this [id number] History of Present illness Narrative* Parveen Aleman Jr., DPM - 04/28/2022 9:17 AM EDT Nail care, leg swelling. Patient is a pleasant 66-year-old type II diabetic female who comes in here for nail care. Her diabetes is managed by endocrinology including Dr. Morel, date of last service is October 09, 2021. Her last hemoglobin A1c is 9.4% hoping also today to get into a new set of DM shoes for protection. Physical Vascular: DP pulses are palpable 1 out of 4 bilaterally. PT pulses are nonpalpable bilaterally. +3 pitting edema to the foot ankle and leg. Skin is shiny atrophic dysvascular with absence of hair growth. Neuro: Light touch is absent Babinski's is absent. Musculoskeletal: Muscle strength is 5/5 with fair tone. Can easily wiggle toes not in clicking or catching. Nails left foot 66663 and right foot 05385 are elongated thickened mycotic crumbling and dystrophic. Assessment and plan Patient is a pleasant 66-year-old diabetic female with peripheral arterial disease and onychomycosis to 10 nails. -Due to patient's distal peripheral neuropathy, a long-term sequelae of her diabetes and high risk foot type, did get her prescription for diabetic shoes for protection and prevention. This is to decrease her limb loss risk score. -Given her arterial disease and neuropathy she is with elevated limb loss risk score therefore qualifies for nail care. Procedure: Nails left foot 83627 and right foot 14251 were sharply debrided and debulk in height and length with a sharp pair of nail nippers consistent with a q8 modifier. Low medical complexity decision making based on her limb loss risk score separate than her nail care. Follow-up in 3 months for foot nail care documented in this [id number] History of Present illness Narrative* Sukumar Doyle, PT - 04/01/2022 2:30 PM EDT [facility] OUTPATIENT REHABILITATION DAILY TREATMENT NOTE Today's Date 04/01/2022 Patient Name: Shantell Rivera Date of : 1955 Current Visit #: 7 Authorized Visits: 20 Case Name: Syncope, debility History: Pre-Treatment Pain Scale: 3 (leg) Symptoms: gradually improved Functional Diagnosis: No diagnosis found. Clinical Information: Subjective: Pt reports noticing slight improvement in balance and mobility but states she still hasdifficulty negotiating stairs. Objective Treatments: Physical Therapy Exercise Log - 04/01/22 1433 OTHER Precautions/Contraindications BP drops from sit to stand (no sxs), iron deficiency anemia; DM Notes LE functional strengthening (sit to stand and steps) and endurance ex Vitals Visit 6: 2:33 - 3:12 Therapeutic Exercise (34669) Parameters Scifit Bike L3 x 8 min Intervention Scifit Arm Bike L2 Fwd/ Retro 1min each x 6 min - NT Parameters Sink Ex's on air ex x15 Intervention Step ups 6'' x 10 B fwd Parameters BOSU lunges x20 alt Intervention Lat ambulation - 15' x2 Parameters Shuttle Squats - 37# x20 Intervention STS plinth at 21 w/o UEs 2x10 Parameters LAQ, HS curl - x15 GTB Functional Activity (75957) Intervention STM 8' L GT area - NT PT Treatment Times Therex Total Time 39 Direct Treatment Time 39 Total Treatment Time 39 Goals: Physical Therapy Ortho Goals: The patient will safely, correctly and independently demonstrate the ability to perform a progressive HEP to achieve maximal rehabilitation potential and prevent this condition from recurring. 2 weeks The patient will demonstrate increased strength of LE 5/5 from 4+/5. 4 weeks The patient will demonstrate increased functional strength of LE to increase reps of sit to stand 2points from 10 without using UE and control lowering. 4 weeks The patient will demonstrate increased endurance of LE to stand / walk 30 mins. 4 weeks The patient will demonstrate ability to negotiate stair without holding rails. 4 weeks Patient Education: Home Safety with patient verbalized understanding. Post-Treatment Pain Scale: about the same Assessment: Patient had an expected response to treatment. Skilled Intervention demonstrated by modifications of treatment per exercise log including increased volume and assessment of patient's response and safety interventions per exercise log. Progress towards goals as expected. Plan for Next Visit: Treatment Visit with focus on strengthening and endurance Sukumar Doyle PT State License, [id number] documented in this [id number] History of Present illness Narrative* Aby Cartwrightdevon, [employer]TER - 03/24/2022 2:30 PM EDT [facility] OUTPATIENT REH[facility] DAILY TREATMENT NOTE Today's Date 03/24/2022 Patient Name: Shantell Rivera Date of : 1955 Current Visit #: 6 Authorized Visits: 20 Case Name: Syncope, debility History: Pre-Treatment Pain Scale: 3 Symptoms: gradually improved Functional Diagnosis: 1. Back problem Clinical Information: Subjective: Her hip is very sore today. Objective Her L hip is slowing her down with exercises. Treatments: Physical Therapy Exercise Log - 03/24/22 1509 OTHER Precautions/Contraindications BP drops from sit to stand (no sxs), iron deficiency anemia; DM Notes LE functional strengthening (sit to stand and steps) and endurance ex Vitals Visit 5: 2:30 - 3:08 Therapeutic Exercise (64469) Parameters Scifit Bike L3 x 8 min Intervention Sink Ex's on air ex - (abd, ext, HR, TR, HS curl, Marching) x15 Parameters Step ups 6'' x 10 B fwd, Intervention Lat ambulation - 15' x2 Parameters STS plinth lowered 2x10 Intervention Shuttle Squats - 37# x20 Parameters LAQ, HS curl - x15 RTB Intervention Scifit Arm Bike L2 Fwd/ Retro 1min each x 6 min - NT Functional Activity (78228) Intervention STM 8' L GT area PT Treatment Times Therex Total Time 30 Manual Therapy Total Time 8 Direct Treatment Time 38 Total Treatment Time 38 Goals: Physical Therapy Ortho Goals: The patient will safely, correctly and independently demonstrate the ability to perform a progressive HEP to achieve maximal rehabilitation potential and prevent this condition from recurring. 2 weeks The patient will demonstrate increased strength of LE 5/5 from 4+/5. 4 weeks The patient will demonstrate increased functional strength of LE to increase reps of sit to stand 2points from 10 without using UE and control lowering. 4 weeks The patient will demonstrate increased endurance of LE to stand / walk 30 mins. 4 weeks The patient will demonstrate ability to negotiate stair without holding rails. 4 weeks Patient Education: Quality of movement with patient demonstrated understanding. Post-Treatment Pain Scale: 3 Assessment: Patient had an expected response to treatment. Skilled Intervention demonstrated by modifications of treatment per exercise log including increased intensity and safety interventions per exercise log. Progress towards goals as expected. Plan for Next Visit: Treatment Visit with focus on pain control Aby Vance PTA STATE LICENSE, [id number] documented in this [id number] History of Present illness Narrative* Margarita Oliveira PTA - 03/22/2022 2:30 PM EDT [facility] DAILY TREATMENT NOTE Today's Date 03/22/2022 Patient Name: Shantell Rivera Date of : 1955 Current Visit #: 5 Authorized Visits: 20 Case Name: Syncope, debility History: Pre-Treatment Pain Scale: 0 Symptoms: stabilized Functional Diagnosis: No diagnosis found. Clinical Information: Subjective: Pt reports no recent falls and no pain. Has not had any fainting spells but has had some weakness but cant remember activities that caused it. Objective Treatments: Physical Therapy Exercise Log - 03/22/22 1431 OTHER Precautions/Contraindications BP drops from sit to stand (no sxs), iron deficiency anemia; DM Notes LE functional strengthening (sit to stand and steps) and endurance ex Vitals Visit 4: 2:33 - 3:08 Therapeutic Exercise (49914) Parameters Gog[place] Bike L3 x 8 min Intervention Sink Ex's on air ex - (abd, ext, HR, TR, HS curl, Marching) x15 Parameters Step ups 6'' x 10 B fwd, Intervention Lat ambulation - 15' x2 Parameters STS plinth lowered 2x10 Intervention Shuttle Squats - 37# x20 Parameters LAQ, HS curl - x15 RTB Intervention Scifit Arm Bike L2 Fwd/ Retro 1min each x 6 min - NT PT Treatment Times Therex Total Time 35 Direct Treatment Time 35 Total Treatment Time 35 Goals: Physical Therapy Ortho Goals: The patient will safely, correctly and independently demonstrate the ability to perform a progressive HEP to achieve maximal rehabilitation potential and prevent this condition from recurring. 2 weeks The patient will demonstrate increased strength of LE 5/5 from 4+/5. 4 weeks The patient will demonstrate increased functional strength of LE to increase reps of sit to stand 2points from 10 without using UE and control lowering. 4 weeks The patient will demonstrate increased endurance of LE to stand / walk 30 mins. 4 weeks The patient will demonstrate ability to negotiate stair without holding rails. 4 weeks Patient Education: Quality of movement with patient demonstrated understanding. Post-Treatment Pain Scale: 0 Assessment: Patient had an expected response to treatment. Skilled Intervention demonstrated by modifications of treatment per exercise log including increased load and safety interventions per exercise log. Progress towards goals as expected. Plan for Next Visit: Treatment Visit with focus on strengthening and standing endurance Margarita Oliveira PTA STATE LICENSE, [id number] documented in this [id number] History of Present illness Narrative* Penny Dewitt PTA - 03/18/2022 2:30 PM EDT [facility] DAILY TREATMENT NOTE Today's Date 03/18/2022 Patient Name: Shantell Rivera Date of : 1955 Current Visit #: 4 Authorized Visits: 20 Case Name: Syncope, debility History: Pre-Treatment Pain Scale: 1 Symptoms: stabilized Functional Diagnosis: 1. Back problem Clinical Information: Subjective: Pt reports increased fatigue but no pain or unsteadiness Objective Increased time on scifit Pt had to pause midway through sink ex's d/t unsteadiness BP 117/78 BPM 93 SpO2 94 Cued pt to increase hip and knee flexion to improve STS mechanics and muscles recruited 2nd trial BP 110/70 BPM 93 SpO2 94 Treatments: Physical Therapy Exercise Log - 03/18/22 1432 OTHER Precautions/Contraindications BP drops from sit to stand (no sxs), iron deficiency anemia; DM Notes LE functional strengthening (sit to stand and steps) and endurance ex Vitals [id number] Therapeutic Exercise (21666) Parameters Scifit Bike L3 x 8 min Intervention Sink Ex's (abd, ext, HR, TR, HS curl, Marching) x10 Parameters Step ups 4'' x 10 B Intervention Scifit Arm Bike L2 Fwd/ Retro 1min each x 6 min Parameters STS plinth lowered 2x10 PT Treatment Times Therex Total Time 42 Direct Treatment Time 42 Total Treatment Time 42 Goals: Physical Therapy Ortho Goals: The patient will safely, correctly and independently demonstrate the ability to perform a progressive HEP to achieve maximal rehabilitation potential and prevent this condition from recurring. 2 weeks The patient will demonstrate increased strength of LE 5/5 from 4+/5. 4 weeks The patient will demonstrate increased functional strength of LE to increase reps of sit to stand 2points from 10 without using UE and control lowering. 4 weeks The patient will demonstrate increased endurance of LE to stand / walk 30 mins. 4 weeks The patient will demonstrate ability to negotiate stair without holding rails. 4 weeks Physical Therapy Neuro Goals: No data was found Patient Education: Written HEP with patient demonstrated understanding and verbalized understanding. Post-Treatment Pain Scale: 1 Assessment: Patient had an expected response to treatment. Skilled Intervention demonstrated by modifications of treatment per exercise log including assessment of patient's response and safety interventions per exercise log. Progress towards goals as expected. Plan for Next Visit: Treatment Visit with focus on progressing as tolerated Penny Dewitt PTA STATE LICENSE, [id number] documented in this [id number] History of Present illness Narrative* Phill Cruz MD, PhD - 03/18/2022 8:27 AM EDT 1. Type 2 diabetes mellitus with both eyes affected by severe nonproliferative retinopathy and macular edema, with long-term current use of insulin (HCC) Stable at 11 wks Eylea Last A1C was 5, per patient, Dr. Morel told her this is too low for her 2. Dry eye Told patient to use artificial tears-given today Use hot compresses Plan: S/p eylea at 11 wks-stable Rec Eylea both eyes return in 9-11 weeks for full exam I have confirmed and edited as necessary the relevant ophthalmic history, ROS, and the neuro exam findings as obtained by others. I have seen and examined this patient. I have discussed the case and the management of this patient's care with the Resident/Fellow, if applicable. I also have reviewed and agree with the assessment and plan as stated above and agree withall of its relevant components. Phill Cruz MD [facility] History of Present illness Narrative* Aby Vance, [employer] KNIFE SETTER - 03/15/2022 4:00 PM EDT [facility] DAILY TREATMENT NOTE Today's Date 03/15/2022 Patient Name: Shantell Rivera Date of : 1955 Current Visit #: 3 Authorized Visits: 20 Case Name: Syncope, debility History: Pre-Treatment Pain Scale: 1 Symptoms: gradually improved Functional Diagnosis: 1. Back problem Clinical Information: Subjective: she has days when she feels really tired and doesn't want to exercise. Objective Treatments: Physical Therapy Exercise Log - 03/15/22 1636 OTHER Precautions/Contraindications BP drops from sit to stand (no sxs), iron deficiency anemia; DM Notes LE functional strengthening (sit to stand and steps) and endurance ex Therapeutic Exercise ([id number]) Parameters Scifit Bike L3 x 6 min Intervention Sink Ex's (abd, ext, HR, TR, HS curl, Marching) x10 Parameters Step ups 4'' x 10 B Intervention Scifit Arm Bike L2 Fwd/ Retro 1min each x 4 min Parameters STS plinth lowered 2x10 PT Treatment Times Therex Total Time 33 Direct Treatment Time 33 Total Treatment Time 33 Goals: Physical Therapy Ortho Goals: The patient will safely, correctly and independently demonstrate the ability to perform a progressive HEP to achieve maximal rehabilitation potential and prevent this condition from recurring. 2 weeks The patient will demonstrate increased strength of LE 5/5 from 4+/5. 4 weeks The patient will demonstrate increased functional strength of LE to increase reps of sit to stand 2points from 10 without using UE and control lowering. 4 weeks The patient will demonstrate increased endurance of LE to stand / walk 30 mins. 4 weeks The patient will demonstrate ability to negotiate stair without holding rails. 4 weeks Patient Education: Quality of movement with patient demonstrated understanding. Post-Treatment Pain Scale: 2 Assessment: Patient had an expected response to treatment. Skilled Intervention demonstrated by modifications of treatment per exercise log including increased intensity and safety interventions per exercise log. Progress towards goals as expected. Plan for Next Visit: Treatment Visit with focus on endurance Aby Vance PTA STATE LICENSE, [id number] documented in this [id number] History of Present illness Narrative* Penny Dewitt PTA - 03/10/2022 1:00 PM EDT [facility] DAILY TREATMENT NOTE Today's Date 03/10/2022 Patient Name: Shantell Rivera Date of : 1955 Current Visit #: 2 Authorized Visits: 20 Case Name: Syncope, debility History: Pre-Treatment Pain Scale: 0 Symptoms: stabilized Functional Diagnosis: 1. Back problem Clinical Information: Subjective: Pt reports min sx's or soreness after IE Objective BPM 93 95 O2 93 87 BP 110/73 105/76 Treatments: Physical Therapy Exercise Log - 03/10/22 1300 OTHER Precautions/Contraindications BP drops from sit to stand (no sxs), iron deficiency anemia; DM Notes LE functional strengthening (sit to stand and steps) and endurance ex Vitals [id number] Therapeutic Exercise (59902) Intervention -- Parameters Scifit Bike L3 x 6 min Intervention Sink Ex's (abd, ext, HR, TR, HS curl, Marching) x10 Parameters Step ups 4'' x 10 B Intervention Scifit Arm Bike L2 Fwd/ Retro 1min each x 4 min Parameters STS plinth lowered 2x10 PT Treatment Times Therex Total Time 45 Direct Treatment Time 45 Total Treatment Time 45 Goals: Physical Therapy Ortho Goals: The patient will safely, correctly and independently demonstrate the ability to perform a progressive HEP to achieve maximal rehabilitation potential and prevent this condition from recurring. 2 weeks The patient will demonstrate increased strength of LE 5/5 from 4+/5. 4 weeks The patient will demonstrate increased functional strength of LE to increase reps of sit to stand 2points from 10 without using UE and control lowering. 4 weeks The patient will demonstrate increased endurance of LE to stand / walk 30 mins. 4 weeks The patient will demonstrate ability to negotiate stair without holding rails. 4 weeks Patient Education: Verbal HEP with patient verbalized understanding. Post-Treatment Pain Scale: 0 Assessment: Patient had an expected response to treatment. Skilled Intervention demonstrated by modifications of treatment per exercise log including assessment of patient's response and safety interventions per exercise log. Progress towards goals as expected. Plan for Next Visit: Treatment Visit with focus on progressing as tolerated Penny Dewitt PTA STATE LICENSE, [id number] documented in this [id number] History of Present illness Narrative* Lesley Walters PT - 03/05/2022 10:00 AM EDT [facility] Evaluation Today's Date 03/05/2022 Patient Name: Shantell Rivera Date of : 1955 Case Name: Syncope, debility Functional Diagnosis: 1. Syncope, unspecified syncope type 2. Debility Clinical Information: Subjective Referring Diagnosis: Syncope, debility History of Present Illness Subjective History: Patient was in the hospital due to black out a month ago. Pt was hospitalized for 3 days. Patient was reported that her blood pressure was low. Pt is not checking blood pressure at home and takes medication regularly. Patient denies any light headedness or black outs after she went home. Pt denies any difficulty doing any ADLs and independent with all. Pt reports practicing energy conservation. Pt denies any significant weakness but gets tired after moderated level activities such as walking more than an hour. Pt reports difficulty on stairs without rails. Pain Scale Pain location: No pain reported Personal Goals: Patient wants to get stronger and able to do stairs without holding rails Functional Mobility Status Functional Limitations: feels tired after she does grocery shopping and difficulty going up and down stairs with out rails Social Support: Jew, social, or cultural considerations to be made aware of before starting treatment: No Home Environment Current Home Environment: Entry: steps with no railing (5 steps to enter) Activities of Daily Living: independent with all Fall risk screening Fallen 2 or more times in the last 12 months: Yes (twice: fell on mud and fell on ice ) Injured as a result of a fall in the last 12 months: No Jew, social, or cultural considerations to be made aware of before starting treatment: No Lumbar Spine Gait: decreased dannie Additional Objective Information: Vitals: SPO2;98%; BP sittin/58, immediately after standin/50 MMT: LE strength grossly 4+/5 BL Functional strength: Sit to stand 30 sec: 10.5 with flopping down and using arm on thigh (mild tiredness) Treatments: Physical Therapy Exercise Log - 03/05/22 1032 OTHER Precautions/Contraindications BP drops from sit to stand (no sxs), iron deficiency anemia; DM Notes LE functional strengthening (sit to stand and steps) and endurance ex Therapeutic Exercise (48289) Intervention arm and leg bike, Sit to stand, kitchen sink, steps NV Treatment Plan: Frequency of Visits: twice per week Duration: 4 weeks Interventions: Therapeutic Exercise (63489), Neuromuscular Re-Education (93302), Therapeutic/ Functional Activities (56797) and Gait Training (62868) Rehab Potential: good Goals: Physical Therapy Ortho Goals: The patient will safely, correctly and independently demonstrate the ability to perform a progressive HEP to achieve maximal rehabilitation potential and prevent this condition from recurring. 2 weeks The patient will demonstrate increased strength of LE 5/5 from 4+/5. 4 weeks The patient will demonstrate increased functional strength of LE to increase reps of sit to stand 2points from 10 without using UE and control lowering. 4 weeks The patient will demonstrate increased endurance of LE to stand / walk 30 mins. 4 weeks The patient will demonstrate ability to negotiate stair without holding rails. 4 weeks Patient Education provided: Patient was educated about the condition, precautions, and physical therapy plan of care. Clinical Impression: Pt is a 66 y.o. year old female who presented to the clinic with debility after hospitalization. Upon assessment, pt has been found with the following impairments: decreased strength, endurance and coordination; tolerance to do activities. The documented impairments result in the following functional limitations: standing, walking, stairs, lifting for work/ADLs, carrying and r eaching, regular PA/exercise, functional mobility, ADLs/IADLs,quality of life.The pt would benefit from skilled PT services focused on the above listed impairments and limitations in order to safely progress pt to their desired level of function. Pt to be discharged from OP PT services if/when goals are met, if they fail to make progress with conservative management in PT, if their level of progress plateaus, or if they do not maintain compliance with attendance or HEP. At this time, it is my clinical judgment that services are medically necessary. Lesley Walters PT STATE LICENSE, [id number] documented in this [id number] History of Present illness Narrative* Sukumar Doyle, PT - 01/21/2022 2:30 PM EST [facility] DAILY TREATMENT NOTE Today's Date 01/21/2022 Patient Name: Shantell Rivera Date of : 1955 Current Visit #: 3 Authorized Visits: 199 Case Name: Left Shoulder and Left Hip Pain History: Pre-Treatment Pain Scale: 6 Symptoms: gradually worsened Functional Diagnosis: 1. Acute pain of left shoulder 2. Left hip pain Clinical Information: Subjective: Pt reports increased shoulder pain and onset of left knee pain from slipping and nearlyfalling when she left her house to come here. Objective Treatments: Physical Therapy Exercise Log - 01/21/22 1429 OTHER Precautions/Contraindications Supervising PT: Yifan Notes visit 2: 2:30 - 3:02 Therapeutic Exercise (05565) Intervention sci fit lvl 2 x 6 mins Parameters Pulleys (flex and abd) x3 mins Intervention ER doorway stretch 3x15 Parameters scap retractions 10x3 Intervention seated HS stretch 3x20 Parameters SKTC 3x20 Intervention bent knee fall outs 3x20 Parameters quad sets 10x5 bilat. Intervention abd marching x20 alt Parameters LAQs x15 bilat. PT Treatment Times Therex Total Time 32 Direct Treatment Time 32 Total Treatment Time 32 Goals: Physical Therapy Ortho Goals: CARRYING/MOVING/HANDLING: Patient will be able to place items on a shelf overhead in 4 weeks CARRYING/MOVING/HANDLING: Patient will be able to lift and carry common household objects without difficulty in 4 weeks SELF CARE: Patient will be able to complete ADL's including bathing, dressing, and hair care without difficulty in 4 weeks. MOBILITY: Patient will be able to ascend/descend stairs without difficulty in 4 weeks. IMPAIRMENT: Patient will demonstrate improved postural awareness in PT sessions to facilitate mechanical alignment and function in 3 weeks. IMPAIRMENT: Improve pain from 9/10 to <4/10 during prolonged standing, stair negotiation, reaching, lifting and carrying in 4 weeks IMPAIRMENT: Improve gross MMT of the Shoulder to at least 4+/5 in 4 weeks IMPAIRMENT: Improve AROM of Shoulder Flexion and Abduction to at least 160 degrees in 4 weeks. IMPAIRMENT: Improve AROM of Shoulder ER to at least 60 degrees in 4 weeks. IMPAIRMENT: Improve AROM of Left Hip Flexion from 46 degrees to 90 degrees in 4 weeks. OTHER: Patient will increase FOTO score from 38/45 to at least 60 to show MDC/MCII and expected functional outcome in 4 weeks. OTHER: Patient will be able to properly demonstrate independence with HEP in 1 week. Patient Education: Quality of movement and HEP Adherence with patient verbalized understanding. Post-Treatment Pain Scale: 6 Assessment: Patient had an expected response to treatment. Skilled Intervention demonstrated by modifications of treatment per exercise log including assessment of patient's response and safety interventions per exercise log. Progress towards goals as expected. Plan for Next Visit: Treatment Visit with focus on strengthening Sukumar Doyle PT State License, [id number] documented in this [id number] Miscellaneous Notes* Addendum Note - Parveen Aleman Jr., DPM - 01/08/2022 4:30 PM EST Addended by: PARVEEN ALEMAN on: 01/08/2022 04:30 PM Modules accepted: Orders documented in this [id number] History of Present illness Narrative* Parveen Aleman Jr., DPM - 01/08/2022 3:35 PM EST Nail care, leg swelling. Patient is a pleasant 66-year-old type II diabetic female who comes in here for nail care. Her diabetes is managed by endocrinology including Dr. Morel, date of last service is October 09, 2021. Her last hemoglobin A1c is 14.0% and today's glucose was 318 mg/dL. Physical Vascular: DP pulses are palpable 1 out of 4 bilaterally. PT pulses are nonpalpable bilaterally. +3 pitting edema to the foot ankle and leg. Skin is shiny atrophic dysvascular with absence of hair growth. Neuro: Light touch is absent Babinski's is absent. Musculoskeletal: Muscle strength is 5/5 with fair tone. Can easily wiggle toes not in clicking or catching. Nails left foot 49946 and right foot 46051 are elongated thickened mycotic crumbling and dystrophic. Assessment and plan Patient is a pleasant 66-year-old diabetic female with peripheral arterial disease and onychomycosis to 10 nails. Patient is initially with substantial swelling above her baseline. States that she just had a duplex performed yesterday which was negative for DVT to her lower extremity. Additionally states that she was to start antibiotics with a diagnosis of cellulitis. However per her, she states that she did not tell her primary care doctor that she was additionally having abdominal swelling swelling in herarms as well as swelling in her face. -Therefore, my recommendation today was to have this additionally evaluated by the emergency department as differential of cellulitis is included however her swelling is global not just right leg. -Given her arterial disease and neuropathy she is with elevated limb loss risk score therefore qualifies for nail care. Procedure: Nails left foot 17068 and right foot 45468 were sharply debrided and debulk in height and length with a sharp pair of nail nippers consistent with a q8 modifier. Follow-up in 3 months for foot nail care documented in this [id number] History of Present illness Narrative* Sukumar Doyle, PT - 01/04/2022 1:00 PM EST [facility] Evaluation Today's Date 01/04/2022 Patient Name: Shantell Rivera Date of : 1955 Case Name: Left Shoulder and Left Hip Pain Functional Diagnosis: 1. Acute pain of left shoulder 2. Left hip pain Clinical Information: Subjective Referring Diagnosis: Left Shoulder and Left Hip Pain Follow Up With Physician: none scheduled. History of Present Illness Date of Onset: 11/23/2021 Subjective History: Pt reports c/o chronic left hip and left shoulder pain. She reports falling a couple times in one day about 5 weeks ago which started the hip pain. 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 She reports a lot of difficulty raising the left leg at this time. She also reports frequent cracking and popping in the shoulder as well as difficulty lifting and reaching over head. She denies UE or LE numbness/tingling. Previous Imaging: X-ray Hand dominance: left Pain Scale: Pain location: hip and shoulder Pain at highest: 9/10 Aggravating factors: stairs, raising the left leg, lifting, reaching, carrying Easing factors: rest Personal Goals: Decrease pain and return to prior level of function Functional Mobility Status Functional Limitations: limited mobility and recent decline in level of ADL Current Mobility Status: Community: no device and independent Current Activity Level: low active Social Support: Jew, social, or cultural considerations to be made aware of before starting treatment: No Home Environment: Current Home Environment: Setup: multi-level house (can live on the main level) Entry: steps with no railing (3 DANICA) Activities of Daily Living: Upper Body Dressing: increased time and effort with all Lower Body: increased time and effort with all Grooming: increased time and effort with all Toileting: increased time and effort with all Bathing: increased time and effort with all Feeding: increased time and effort with all Instrumental Activities of Daily Living: to be assessed Sleep Assessment Sleep disturbance: Sleep Disturbance Red Flags: None Comments: Barriers to Care: None Jew, social, or cultural considerations to be made aware of before starting treatment: No Shoulder Left Shoulder Tenderness: biceps tendon Range of Motion: Flexion: Active: 122 Extension: Active: 45 Abduction: Active: 110 Horizontal ABduction: ROM Left Active Horiz Abduction: limited about 25% Horizontal ADduction: ROM Left Active Horiz Adduction: limited about 25% IR 0 deg.: ROM Left Active IR 0: hip. ER 0 deg.: Active: 48 Muscle Strength: Flexion: 2+ Extension: 3+ Abduction: 2+ Adduction: 4+ IR: 2+ ER: 2+ Additional Comments: FOTO: 45 Hip Left Hip Tenderness: greater trochanter Range of Motion: Flexion Active: 46 Extension Active: 6 Abduction Active: 16 IR Left hip rom internal rotation (IR) active: WFL. ER Left hip rom external rotation (ER) active: limited about 75% Muscle Strength: Flexion: 3+ Extension: 4 Abduction: 4+ Adduction: 4+ IR: 4+ ER: 4- Other Sensation: normal FOTO: 38 Treatments: Physical Therapy Exercise Log - 01/04/22 1332 OTHER Precautions/Contraindications Supervising PT: Yifan Notes Eval: 1:03 - 1:48 Therapeutic Exercise (43830) Intervention provided written HEP handouts consisting of the following: Parameters Pulleys (flex and abd) Intervention ER doorway stretch Parameters scap retractions Intervention seated HS stretch Parameters SKTC Intervention bent knee fall outs Parameters quad sets abd marching Intervention LAQs Parameters seated marching PT Treatment Times Total Treatment Time 45 Goals: Physical Therapy Ortho Goals: CARRYING/MOVING/HANDLING: Patient will be able to place items on a shelf overhead in 4 weeks CARRYING/MOVING/HANDLING: Patient will be able to lift and carry common household objects without difficulty in 4 weeks SELF CARE: Patient will be able to complete ADL's including bathing, dressing, and hair care without difficulty in 4 weeks. MOBILITY: Patient will be able to ascend/descend stairs without difficulty in 4 weeks. IMPAIRMENT: Patient will demonstrate improved postural awareness in PT sessions to facilitate mechanical alignment and function in 3 weeks. IMPAIRMENT: Improve pain from 9/10 to <4/10 during prolonged standing, stair negotiation, reaching, lifting and carrying in 4 weeks IMPAIRMENT: Improve gross MMT of the Shoulder to at least 4+/5 in 4 weeks IMPAIRMENT: Improve AROM of Shoulder Flexion and Abduction to at least 160 degrees in 4 weeks. IMPAIRMENT: Improve AROM of Shoulder ER to at least 60 degrees in 4 weeks. IMPAIRMENT: Improve AROM of Left Hip Flexion from 46 degrees to 90 degrees in 4 weeks. OTHER: Patient will increase FOTO score from 38/45 to at least 60 to show MDC/MCII and expected functional outcome in 4 weeks. OTHER: Patient will be able to properly demonstrate independence with HEP in 1 week. CPT Code 07433 Low 82148 Moderate 67047 High History 0 1-2 3+ Comorbidities: DM, Personal factors: chronicity or severity of the current condition Examination of body systems (elements of body structures & functions, activity limitations, and/or participation restrictions) 1-2 elements 3+ elements 4+ elements See below clinical impression Clinical Presentation Stable Evolving Unstable As evidenced by reproduction of or changes in symptoms with certain movements and pt report of overall worsening of symtpoms over time Decision Making Low (FOTO >/= 69) Moderate (FOTO 34 - 68) High (FOTO </= 33) FOTO score= 38/45 Pt is a 66 y.o. female who presents to PT services with c/o left shoulder and left hip pain. Upon assessment, pt has been found with the following impairments: impaired posture, decreased ROM, decreased strength, antalgic gait, decreased stability and pain. 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 The pt would benefit from skilled PT services focused on the above listed impairments and limitations in order to safely progress pt to their desired level of function. Pt to be discharged from OP PT services if/when goals are met, if they fail to make progress with conservative management in PT, if their level of progress plateaus, or if they do not maintain compliance with attendance or HEP. At this time, it is my clinical judgment that services are medically necessary. Plan of Care Frequency of Visits: 2 times per week Duration: 4 weeks Interventions: Therapeutic Exercise (71803), Neuromuscular Re-Education (79038), Manual Therapy (26365), Therapeutic/ Functional Activities (64006), Gait Training (23849) and Vasopneumatic (81771) Rehab Potential: fair Suicide Screen Signs and Symptoms of Abuse/Neglect: No Actions Taken: No Suicide Risk: Does the patient feel like ending their life today?No Actions Taken: No Patient Education Provided Pt was educated on the benefits of therapy and importance of compliance with sessions and HEP for rehabilitation. Pt was also educated on treatment diagnosis, POC, and frequency/duration of treatment. Clinical Impression Pt would benefit from PT interventions for possible arthritis to address impairments in ROM, strength and stability as well as pain control. Sukumar Doyle PT State License, [id number] documented in this [id number] History of Present illness Narrative* Parveen Aleman Jr., DPM - 10/16/2021 3:05 PM EST Nail care Patient is a pleasant 66-year-old type II diabetic female who comes in here for nail care. Her diabetes is managed by endocrinology including Dr. Morel, date of last service is October 09, 2021. Her last hemoglobin A1c is 14.0% and today's glucose was 318 mg/dL. Physical Vascular: DP pulses are palpable 1 out of 4 bilaterally. PT pulses are nonpalpable bilaterally. +1 pitting edema to the foot ankle and leg. Skin is shiny atrophic dysvascular with absence of hair growth. Neuro: Light touch is absent Babinski's is absent. Musculoskeletal: Muscle strength is 5/5 with fair tone. Can easily wiggle toes not in clicking or catching. Nails left foot 20400 and right foot 26734 are elongated thickened mycotic crumbling and dystrophic. Assessment and plan Patient is a pleasant 66-year-old diabetic female with peripheral arterial disease and onychomycosis to 10 nails. -Given her arterial disease and neuropathy she is with elevated limb loss risk score therefore qualifies for nail care. Procedure: Nails left foot 27855 and right foot 26526 were sharply debrided and debulk in height and length with a sharp pair of nail nippers consistent with a q8 modifier. Follow-up in 3 months for foot nail care documented in this [id number] History of Present illness Narrative* Parveen Aleman Jr., DPM - 07/24/2021 2:52 PM EDT Nail care Patient is a pleasant 66-year-old type II diabetic female who comes in here for nail care. Her diabetes is managed by endocrinology including Dr. Morel, date of last service is June 10, 2021. Her lasthemoglobin A1c is 10.5% and today's glucose was 223 mg/dL. Physical Vascular: DP pulses are palpable 1 out of 4 bilaterally. PT pulses are nonpalpable bilaterally. +1 pitting edema to the foot ankle and leg. Skin is shiny atrophic dysvascular with absence of hair growth. Neuro: Light touch is absent Babinski's is absent. Musculoskeletal: Muscle strength is 5/5 with fair tone. Can easily wiggle toes not in clicking or catching. Nails left foot 12079 and right foot 43525 are elongated thickened mycotic crumbling and dystrophic. Assessment and plan Patient is a pleasant 66-year-old diabetic female with peripheral arterial disease and onychomycosis to 10 nails. -Given her arterial disease and neuropathy she is with elevated limb loss risk score therefore qualifies for nail care. Procedure: Nails left foot 49710 and right foot 62106 were sharply debrided and debulk in height and length with a sharp pair of nail nippers consistent with a q8 modifier. Follow-up in 3 months for foot nail care documented in this [id number] History of Past illness Narrative* Problem Noted Date Resolved Date Type 2 diabetes mellitus wit h moderate nonproliferative retinopathy and macular edema 09/24/2016 12/03/2016 Type 2 diabetes mellitus wit h moderate nonproliferative diabetic retinopathy with macular edema 08/13/2016 02/04/2017 Type 1 diabetes mellitus wit h moderate nonproliferative diabetic retinopathy and macular edema 03/23/2016 05/07/2016 Type 2 diabetes mellitus wit h moderate nonproliferative diabetic retinopathy and macular edema of left eye 02/09/201608/2016 Type 1 diabetes mellitus wit h mild nonproliferative diabetic retinopathy and macular edema 12/04/2015 05/07/2016 Combined form of senile cataract 11/17/2015 12/04/2015 Astigmatism of right eye 11/17/2015 016 Pseudophakia, left eye 11/17/2015 6 Pseudophakia of left eye 11/14/2015 016 Regular astigmatism 10/20/2015 05/07/2016 Insulin-dependent diabetes mellitus with retinop athy 10/20/2015 12/03/2016 Type 2 diabetes mellitus wit h moderate nonproliferative diabetic retinopathy and without macular edema 10/03/2015 016 Nuclear sclerotic cataract 10/03/201505/07 Diabetic retinopathy associa janak with type 2 diabetes mellitus, with macular edema, with proliferative retinopathy 09/08/2015 12/03/2016 Combined form of senile cataract of both eyes 12/04/2015 Type II or unspecified type diabetes mellitus without mention of complication, uncontrolled 05/25/2012 05/07/2016 documented as of this encounter (statuses as of 03/18/2022) [facility] History of Past illness Narrative* Problem Noted Date Resolved Date Type 2 diabetes mellitus wit h moderate nonproliferative retinopathy and macular edema 09/24/2016 12/03/2016 Type 2 diabetes mellitus wit h moderate nonproliferative diabetic retinopathy with macular edema 08/13/2016 02/04/2017 Type 1 diabetes mellitus wit h moderate nonproliferative diabetic retinopathy and macular edema 03/23/2016 05/07/2016 Type 2 diabetes mellitus wit h moderate nonproliferative diabetic retinopathy and macular edema of left eye 02/09/201608/2016 Type 1 diabetes mellitus wit h mild nonproliferative diabetic retinopathy and macular edema 12/04/2015 05/07/2016 Combined form of senile cataract 11/17/2015 12/04/2015 Astigmatism of right eye 11/17/2015 016 Pseudophakia, left eye 11/17/2015 6 Pseudophakia of left eye 11/14/2015 016 Regular astigmatism 10/20/2015 05/07/2016 Insulin-dependent diabetes mellitus with retinop athy 10/20/2015 12/03/2016 Type 2 diabetes mellitus wit h moderate nonproliferative diabetic retinopathy and without macular edema 10/03/2015 016 Nuclear sclerotic cataract 10/03/201505/07 Diabetic retinopathy associa janak with type 2 diabetes mellitus, with macular edema, with proliferative retinopathy 09/08/2015 12/03/2016 Combined form of senile cataract of both eyes 12/04/2015 Type II or unspecified type diabetes mellitus without mention of complication, uncontrolled 05/25/2012 05/07/2016 documented as of this encounter (statuses as of 08/12/2022) [facility] History of Past illness Narrative* Problem Noted Date Resolved Date Type 2 diabetes mellitus wit h moderate nonproliferative retinopathy and macular edema 09/24/2016 12/03/2016 Type 2 diabetes mellitus wit h moderate nonproliferative diabetic retinopathy with macular edema 08/13/2016 02/04/2017 Type 1 diabetes mellitus wit h moderate nonproliferative diabetic retinopathy and macular edema 03/23/2016 05/07/2016 Type 2 diabetes mellitus wit h moderate nonproliferative diabetic retinopathy and macular edema of left eye 02/09/201608/2016 Type 1 diabetes mellitus wit h mild nonproliferative diabetic retinopathy and macular edema 12/04/2015 05/07/2016 Combined form of senile cataract 11/17/2015 12/04/2015 Astigmatism of right eye 11/17/2015 016 Pseudophakia, left eye 11/17/2015 6 Pseudophakia of left eye 11/14/2015 016 Regular astigmatism 10/20/2015 05/07/2016 Insulin-dependent diabetes mellitus with retinop athy 10/20/2015 12/03/2016 Type 2 diabetes mellitus wit h moderate nonproliferative diabetic retinopathy and without macular edema 10/03/2015 016 Nuclear sclerotic cataract 10/03/201505/07 Diabetic retinopathy associa janak with type 2 diabetes mellitus, with macular edema, with proliferative retinopathy 09/08/2015 12/03/2016 Combined form of senile cataract of both eyes 12/04/2015 Type II or unspecified type diabetes mellitus without mention of complication, uncontrolled 05/25/2012 05/07/2016 documented as of this encounter (statuses as of 03/11/2023) [facility] History of Past illness Narrative* Problem Noted Date Diagnosed Date Resolved Date Type 2 diabetes mellitus wit h moderate nonproliferative retinopathy and macular edema 09/24/2016 12/03/2016 Type 2 diabetes mellitus wit h moderate nonproliferative diabetic retinopathy with macular edema 08/13/2016 02/04/2017 Type 1 diabetes mellitus wit h moderate nonproliferative diabetic retinopathy and macular edema 03/23/2016 05/07/2016 Type 2 diabetes mellitus wit h moderate nonproliferative diabetic retinopathy and macular edema of left eye 02/09/2016 05/07/2016 Type 1 diabetes mellitus wit h mild nonproliferative diabetic retinopathy and macular edema 12/04/2015 05/07/2016 Combined form of senile cataract 11/17/2015 12/04/2015 Astigmatism of right eye 11/17/201508/2016 Pseudophakia, left eye 11/17/201512/04 Pseudophakia of left eye 11/14/201505/2016 Regular astigmatism 10/20/2015 05/07/20 16 Insulin-dependent diabetes m ellitus with retinopathy 10/20/2015 12/03/2016 Type 2 diabetes mellitus wit h moderate nonproliferative diabetic retinopathy and without macular edema 10/03/2015 05/07/2016 Nuclear sclerotic cataract 10/03/2015 0 05/07/2016 Diabetic retinopathy associa janak with type 2 diabetes mellitus, with macular edema, with proliferative retinopathy 09/08/2015 12/03/2016 Combined form of senile cataract of both eyes 09/08/20 15 12/04/2015 Type II or unspecified type diabetes mellitus without mention of complication, uncontrolled 05/25/2012 05/07/2016 documented as of this encounter (statuses as of 06/30/2023) [facility] Diagnosis Allergy to adhesive tape Ankle swelling, unspecified laterality Back problem Other unspecified back disorder Circulation problem Uncontrolled type 2 diabetes mellitus with diabetic polyneuropathy (HCC) Ear problem, unspecified laterality Pain in both feet Peripheral arterial occlusive disease (HCC) Unspecified peripheral vascular disease Psychiatric diagnosis Unspecified nonpsychotic mental disorder Tinea unguium Dermatophytosis of nail Syncope, unspecified syncope type [facility] Diagnosis Onychomycosis- Primary Dermatophytosis of nail Peripheral vascular disease, unspecified (HCC) Peripheral vascular disease, unspecified [facility] Diagnosis Onychomycosis- Primary Dermatophytosis of nail Peripheral vascular disease, unspecified (HCC) Peripheral vascular disease, unspecified [facility]* Diagnosis Acute pain of left shoulder- Primary Left hip pain Pain in joint, pelvic region and thigh [facility] Diagnosis Acute pain of left shoulder Left hip pain Pain in joint, pelvic region and thigh [facility]* Diagnosis Localized edema- Primary Edema Onychomycosis Dermatophytosis of nail Peripheral vascular disease, unspecified (HCC) Peripheral vascular disease, unspecified Diabetic polyneuropathy associated with type 2 diabetes mellitus (HCC) [facility] Acute pain of left shoulder- Primary Left hip pain Pain in joint, pelvic region and thigh [facility]* Skin: Warm and dryEyes: PERRL, EOMI, clear scleraENMT: mucous membranes moist, no apparent injury, no lesions seenHead/Neck: Neck supple, no apparent injury, thyroid without mass or tenderness, No JVD, trachea midline, no bruitsMusculoskeletal: ROM intact, no joint swelling, normal strengthGastrointestinal: Obese, bowel sounds present x4 normoactiveExtremities: normal extremities, no cyanosis edema, contusions or wounds, no clubbingNeurological: Alert and oriented x3 no focal deficitPsychological: Appropriate mood and behaviorCardiovascular: Regular, rate and rhythm, no murmurs, 2+ equal pulses of the extremities, normal S 1and S 2Constitutional: Obese, awake/alert/oriented x3, no distress,alert and cooperative [facility]* Diagnosis Syncope, unspecified syncope type Debility Unspecified debility [facility] Diagnosis Back problem Other unspecified back disorder [facility] Diagnosis Back problem Other unspecified back disorder [facility]* Diagnosis Type 2 diabetes mellitus with both eyes affected by severe nonproliferative retinopathy and macular edema, with long-term current use of insulin ([facility]) [facility]* Diagnosis Back problem Other unspecified back disorder [facility] Diagnosis Syncope, unspecified syncope type [facility] Diagnosis Back problem Other unspecified back disorder [facility] Diagnosis Diabetic polyneuropathy associated with type 2 diabetes mellitus (HCC)- Primary Onychomycosis Dermatophytosis of nail Peripheral vascular disease, unspecified (HCC) Peripheral vascular disease, unspecified [facility] Diagnosis Onychomycosis- Primary Dermatophytosis of nail Peripheral vascular disease, unspecified ([facility]) Peripheral vascular disease, unspecified [facility] Diagnosis Type 2 diabetes mellitus with both eyes affected by severe nonproliferative retinopathy and macular edema, with long-term current use of insulin ([facility]) [facility]* Diagnosis Onychomycosis- Primary Dermatophytosis of nail Peripheral vascular disease, unspecified (HCC) Peripheral vascular disease, unspecified documented in this encounter [facility]* Diagnosis Onychomycosis- Primary Dermatophytosis of nail Peripheral vascular disease, unspecified (HCC) Peripheral vascular disease, unspecified documented in this encounter [facility]* Diagnosis Type 2 diabetes mellitus with both eyes affected by severe nonproliferative retinopathy and macular edema, with long-term current use of insulin ([facility]) documented in this encounter [facility] note* Diagnosis Type 2 diabetes mellitus with both eyes affected by severe nonproliferative retinopathy and macular edema, with long-term current use of insulin ([facility]) documented in this encounter [facility] note* Diagnosis Onychomycosis- Primary Dermatophytosis of nail Peripheral vascular disease, unspecified (HCC) Peripheral vascular disease, unspecified documented in this encounter [facility] note* Diagnosis Hypoglycemia- Primary Hypoglycemia, unspecified documented in this encounter [facility] Work Phone: Evaluation note* Diagnosis Hypothyroidism, unspecified type- Primary Dehydration Syncope, unspecified syncope type documented in this encounter [facility] Work Phone: Hospital Discharge instructions* Labs 1 (Modify Template):Lab Test(s): Basic Metabolic Panel, CBCDate To Be Drawn: 2Call Results To: PCPFax Results To: PCPComments: can be completed at [facility] * Additional Orders:Additional Instructions: Follow up with PCP within 1 week of discharge: will needneurology referral, echo(mild left hypertrophy), renal functionNeed to follow up with her manager advanced with 1 week of discharge: A1C diabetic control, Elevated cortisol- CushingsHusband indicates will need psychiatry referral -current follows with [facility] but wants additional referral-meds all stopped abruptly 3 weeks ago * Care Recommendation:I recommend that INPATIENT care is required at: SkilledEstimated Stay: Convalescent stay < 30 daysPrognosis: GoodRehab Potential/Function: ImproveAdditional Comments: will needpsychiatry to see her * Therapy Orders:Occupational Therapy Orders: [facility]Physical Therapy Orders: [facility] ([facility]) * Follow Up Appointment 1:Physician/Dept/Service: Dr. Cage for Referral: PCP, follow up post dischargeCall to Schedule in: 1 weekComments: needs neuro consult, follow up post discharge * Follow Up Appointment 2:Physician/Dept/Service: Her endocrinologistReason for Referral: Follow up post discharge * Follow Up Appointment 3:Physician/Dept/Service: CrReason for Referral: As scheduled [facility] Reason for Referral: ADL safety [facility] Summary Purpose Family History No Family History Records FoundNo Family History Records FoundNo Family History Records FoundNo Family History Records FoundNo Family History Records FoundNo Family History Records FoundNo Family History Records FoundNo Family History Records Found Advance Directives No Advanced Directives Records FoundDocuments on File Type Date Recorded Patient Manager Of Recruiting Expl anation Advance Directives and Livin g Will 05/09/2021 12:00 AM Documents on File Type Date Recorded Patient Manager Of Recruiting Expl anation Advance Directives and Living Will Documents on File Type Date Recorded Patient Manager Of Recruiting Expl anation Advance Directives and Living Will Documents on File Type Date Recorded Patient Manager Of Recruiting Expl anation Advance Directives and Livin g Will 02/11/2022 12:30 PM Reason for Referral Specialty Diagnoses / Procedures Referred By Maral cordero Referred To Contact Rehabilitation Diagnoses Acute pain of left shoulder Left hip pain Jesus Manuel Morel Chi, MD [address] [facility] [address] [place] [id number] [address] Referral ID Status Reason Start Date Expiration Date V isits Requested Visits Authorized [id number] Authorized 12/28/2021 12/28/2022 1 1 Medications Administered Section Inactive Administered Medications - up to 3 most recent administrations Medication Order MAR Action Action Date Dose Rate Site aflibercept intravitreal injection 2 mg/0.05 mL (EYLEA) 2 mg, ONE TIME INJECTION, 1 dose, Starting on Tue03/18/22 at 0834, Until Ira 03/18/22 at 0834 Given 03/18/2022 8:34 AM EDT 2 mg Left aflibercept intravitreal injection 2 mg/0.05 mL (EYLEA) 2 mg, ONE TIME INJECTION, 1 dose, Starting on Ira 03/18/22 at 0834, Until Ira 03/18/22 at 0834 Given 03/18/2022 8:34 AM EDT 2 mg Right Inactive Administered Medications - up to 3 most recent administrations Medication Order MAR Action Action Date Dose Rate Site aflibercept intravitreal injection 2 mg/0.05 mL (EYLEA) 2 mg, ONE TIME INJECTION, 1 dose, Starting on Ira 08/12/22 at 1023, Until Ira 08/12/22 at 1023 Given 08/12/2022 10:23 AM EDT 2 mg Right aflibercept intravitreal injection 2 mg/0.05 mL (EYLEA) 2 mg, ONE TIME INJECTION, 1 dose, Starting on Ira 08/12/22 at 1023, Until Ira 08/12/22 at 1023 Given 08/12/2022 10:23 AM EDT 2 mg Left Inactive Administered Medications - up to 3 most recent administrations Medication Order MAR Action Action Date Dose Rate Site aflibercept intravitreal injection 2 mg/0.05 mL (EYLEA) 2 mg, ONE TIME INJECTION, 1 dose, Starting on Ira 03/10/23 at 1445, Until Ira 03/10/23 at 1445 Given 03/10/2023 2:45 PM EDT 2 mg Left aflibercept intravitreal injection 2 mg/0.05 mL (EYLEA) 2 mg, ONE TIME INJECTION, 1 dose, Starting on Ira 03/10/23 at 1445, Until Ira 03/10/23 at 1445 Given 03/10/2023 2:45 PM EDT 2 mg Right Active Administered Medications - up to 3 most recent administrations Medication Order MAR Action Action Date Dose Rate Site fluorescein-benoxinate 0.25-0.4 % 1 Drop (FLURESS) 1 Drop, BOTH EYES, DIRECTED, Starting on Ira 06/30/23 at 1000, Until Ira 06/30/23 at 2159, Administer for applanation tonometry. In the event of a Fluress shortage, administer 1 drop of Letty-Fluor into both eyes as directed for applanation tonometry., [facility] MED ORDERS Given 06/30/2023 10:00 AM EDT 1 Drop PHENYLephrine 2.5 % 1 Drop (AK-DILATE, FABIO-SYNEPHRINE) 1 Drop, BOTH EYES, DIRECTED, Starting on Ira 06/30/23 at 1000, Until Ira 8 at 2159, Administer for dilation PROTECT FROM LIGHT, [facility] MED ORDERS Given 06/30/2023 10:00 AM EDT 1 Drop proparacaine 0.5 % 1 Drop (ALCAINE) 1 Drop, BOTH EYES, DIRECTED, Starting on Ira 06/30/23 at 1000, Until Ira 8 at 2159, Administer for pneumo tonometry, tonopen tonometry, or pachymetry. In the event of a proparacaine shortage, administer 1 drop of tetracaine 0.5% ophthalmic drops into both eyes as directed for pneumo tonometry, tonopen tonometry, or pachymetry, [facility] MED ORDERS Given 06/30/2023 10:00 AM EDT 1 Drop tropicamide 1 % 1 Drop (MYDRIACYL) 1 Drop, BOTH EYES, DIRECTED, Starting on Ira 06/30/23 at 1000, Until Ira 8 at 2159, Administer for dilation, [facility] MED ORDERS Given 06/30/2023 10:00 AM EDT 1 Drop Inactive Administered Medications - up to 3 most recent administrations Medication Order MAR Action Action Date Dose Rate Site aflibercept intravitreal injection 2 mg/0.05 mL (EYLEA) 2 mg, ONE TIME INJECTION, 1 dose, Starting on Ira 06/30/23 at 1110, Until Ira 8 at 1110 Given 06/30/2023 11:10 AM EDT 2 mg Right aflibercept intravitreal injection 2 mg/0.05 mL (EYLEA) 2 mg, ONE TIME INJECTION, 1 dose, Starting on Ira 06/30/23 at 1110, Until Ira 8 at 1110 Given 06/30/2023 11:10 AM EDT 2 mg Left Additional Source Comments INFORMATION SOURCE (unrecogn ized section and content) DATE CREATED AUTHOR AUTHOR'S ORGANIZ ATION 02/15/2022 [facility] DATE CREATED AUTHOR AUTHOR'S ORGANIZ ATION 04/05/2022 [facility] DATE CREATED AUTHOR AUTHOR'S ORGANIZ ATION 02/11/2023 [facility] DATE CREATED AUTHOR AUTHOR'S ORGANIZ ATION 09/30/2023 [facility] DATE CREATED AUTHOR AUTHOR'S ORGANIZ ATION 10/21/2023 [facility] DATE CREATED AUTHOR AUTHOR'S ORGANIZ ATION 11/29/2023 [facility] DATE CREATED AUTHOR AUTHOR'S ORGANIZ ATION 11/30/2023 [facility] Reason for Visit (unrecogniz ed section and content) Reason Comments Nail Care Diabetic nail care. Blood sugar was 318 today. Last A1C was 14.0 on May. Last saw Dr Morel two weeks ago. Reason Comments Physical Therapy Specialty Diagnoses / Procedures Referred By Maral cordero Referred To Contact Rehabilitation Diagnoses Acute pain of left shoulder Left hip pain Jesus Manuel Morel Chi, MD [address] [place] [address] [facility] [place] [address] [place] [phone] Referral ID Status Reason Start Date Expiration Date V isits Requested Visits Authorized [id number] Authorized 12/28/2021 12/28/2022 1 199 Reason Comments Nail Care Diabetic nail care. Blood sugar was 98 today. Last A1C was 8.1. She saw Dr Morel was two weeks ago. Specialty Diagnoses / Procedures Referred By Maral cordero Referred To Contact Rehabilitation Diagnoses Syncope, unspecified syncope type Debility Jesus Manuel Morel Chi, MD [address] [place] [id number] [facility] [place] [address] [place] [address] Referral ID Status Reason Start Date Expiration Date V isits Requested Visits Authorized [id number] Authorized 02/25/2022 02/25/2023 1 20 Reason Comments Diabetes Blood sugar reading was 117 this morning. Last HgbA1c was 8.5 Severe Nonproliferative Diabetic Retinop athy Bilateral Dry Eye Syndrome Follow Up Bilateral Reason Comments Nail Care A1C 9.4 3 WEEKS AGO W/PCP Reason Comments Nail Care Diabetic nail care. Pt states her last A1C was 11.2 in May. Pt states her sugar level was 117 this morning. Reason Comments Npdr/iddm Follow Up Blood sugar was 214 this morning Decreased Vision Both Eyes Specialty Diagnoses / Procedures Referred By Contac t Referred To Contact Ophthalmology / OPHTHALMOLOGY Diagnoses Type 2 diabetes mellitus with severe nonproliferative diabetic retinopathy with macular edema, bilateral 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) use of insulin STI eylea both eyes/ OCT. Procedures AFLIBERCEPT INJECTION INJECTION Phill Cruz MD, PhD [address] [place] [address] Phill Cruz MD, PhD [address] [place] [address] Referral ID Status Reason Start Date Expiration Date V isits Requested Visits Authorized [id number] Authorized 08/12/2022 11/27/2022 99 99 Reason Comments Nail Care Diabetic nail care. Pt states last a1c 10.4. Pt states sugar level 213 this morning. Reason Comments Nail Care Diabetic nail care. Reason Comments Severe Nonproliferative Diabetic Retinop athy Reason Comments Non-insulin Dependent Diabetes Mellitus Blood sugar is 211 this morning Eye Itching Left Eye months Blurred Vision Both Eyes Left eye more t cornejo right eye Reason Comments Diabetic Foot Exam Nail care and foot c heck up Reason Comments Nail Care Diabetic nailcare A1 C: 10.3 Reason Comments Hypoglycemia To er per [facility] with c/o low blood sugar. They state found pt unresponsive with a low blood sugar. They gave glucagon and d10. Reason Comments near syncope To er [facility] with c/o near syncopal episode. Pt c/o constipation x 3 days. States she was going to get a shower, but states she was too weak. Pt is alert and oriented to person and place Care Teams (unrecognized sec tion and content) Volunteer Coordinator Relationship Specialty Start Date End Date Jesus Manuel Morel Chi, MD [address] [place] [address] PCP - General Geriatric Medicine 07/24/21 Volunteer Coordinator Relationship Specialty Start Date End Date Jesus Manuel Morel Chi, MD [address] [place] [address] PCP - General Geriatric Medicine 07/24/21 Volunteer Coordinator Relationship Specialty Start Date End Date Jesus Manuel Morel Chi, MD [address] [place] [address] PCP - General Geriatric Medicine 07/24/21 Volunteer Coordinator Relationship Specialty Start Date End Date Jesus Manuel Morel Chi, MD [address] [place] [address] PCP - General Geriatric Medicine 07/24/21 Volunteer Coordinator Relationship Specialty Start Date End Date Jesus Manuel Morel Chi, MD [address] [place] [address] PCP - General Geriatric Medicine 07/24/21 Volunteer Coordinator Relationship Specialty Start Date End Date Jesus Manuel Morel Chi, MD [address] [place] [address] PCP - General Geriatric Medicine 07/24/21 Volunteer Coordinator Relationship Specialty Start Date End Date Jesus Manuel Morel Chi, MD [address] [place] [address] PCP - General Geriatric Medicine 07/24/21 Volunteer Coordinator Relationship Specialty Start Date End Date Jesus Manuel Morel Chi [address] [place] [address] PCP - General Gerontology 08/16/19 Volunteer Coordinator Relationship Specialty Start Date End Date Jessu Manuel Morel Chi, MD [address] [place] [address] PCP - General Geriatric Medicine 07/24/21 Volunteer Coordinator Relationship Specialty Start Date End Date Jesus Manuel Morel Chi, MD [address] [place] [address] PCP - General Geriatric Medicine 07/24/21 Volunteer Coordinator Relationship Specialty Start Date End Date Jesus Manuel Morel Chi, MD [address] [place] [address] PCP - General Geriatric Medicine 07/24/21 Volunteer Coordinator Relationship Specialty Start Date End Date Jesus Manuel Morel Chi, MD [address] [place] [address] PCP - General Geriatric Medicine 07/24/21 Volunteer Coordinator Relationship Specialty Start Date End Date Jesus Manuel Morel Chi [address] [place] [address] PCP - General Gerontology 08/16/19 Volunteer Coordinator Relationship Specialty Start Date End Date Jesus Manuel Morel Chi, MD [address] [place] [address] PCP - General Geriatric Medicine 07/24/21 Volunteer Coordinator Relationship Specialty Start Date End Date Jesus Manuel Morel Chi, MD [address] [place] [address] PCP - General Geriatric Medicine 07/24/21 Volunteer Coordinator Relationship Specialty Start Date End Date Jesus Manuel Morel Chi [address] [place] [address] PCP - General Gerontology 08/16/19 Volunteer Coordinator Relationship Specialty Start Date End Date Jesus Manuel Morel Chi [address] [place], [place] [address] PCP - General Gerontology 08/16/19 Volunteer Coordinator Relationship Specialty Start Date End Date Jesus Manuel Morel Chi, MD [address] [facility] [address] [place], [place] [address] PCP - General Geriatric Medicine 07/24/21 Volunteer Coordinator Relationship Specialty Start Date End Date Jose L Morel MD [address] [facility] [address] [place] [address] PCP - General 02/01/22 Volunteer Coordinator Relationship Specialty Start Date End Date Jose L Morel MD [address] [facility] [address] [place] [address] PCP - General 02/01/22 Volunteer Coordinator Relationship Specialty Start Date End Date Jose L Morel MD [address] [facility] [address] [place] [address] PCP - General 02/01/22 <item><item> Privacy Markings (unrecogniz ed section and content) Section Author: Hanny Hager PROHIBITION ON REDISCLOSURE OF CONFIDENTIAL INFORMATION This notice accompanies a disclosure of information concerning a client made to you with the consent of such client. Section Author: Hanny Hager PROHIBITION ON REDISCLOSURE OF CONFIDENTIAL INFORMATION This notice accompanies a disclosure of information concerning a client made to you with the consent of such client. Source Comments (unrecognize d section and content) In the event this informatio n is protected by the Federal Confidentiality of Alcohol and Drug Abuse Patient Records regulations: The Federal rules restrict any use of the information to criminally investigate or prosecute any alcohol or drug abuse patient.[facility] the event this information is protected by the Federal Confidentiality of Alcohol and Drug Abuse Patient Records regulations: The Federal rules restrict any use of the information to criminally investigate or prosecute any alcohol or drug abuse patient.[facility] Hospital[facility] the event this information is protected by the Federal Confidentiality of Alcohol and Drug Abuse Patient Records regulations: The Federal rules restrict any use of the information to criminally investigate or prosecute any alcohol or drug abuse patient.[facility] the event this information is protected by the Federal Confidentiality of Alcohol and Drug Abuse Patient Records regulations: The Federal rules restrict any use of the information to criminally investigate or prosecute any alcohol or drug abuse patient.[facility] PRN Active and Recently Administ ered Medications (unrecognized section and content) Scheduled Medication Order 11/26/2023 11/27/2023 11/28/2023 sodium chloride 0.9 % bolus 500 mL (COMPLETED) 500 mL, intravenous, at 500 mL/hr, Administer over 1 Hours, Once, On Tue11/28/23 at 1530, For 1 dose 1532 (New Bag - Prov ider: Lance Dowling RN)1632 (Stopped - Provider: Karen Joshi RN) Continuous Medication Order 11/26/2023 11/27/2023 11/28/2023 sodium chloride 0.9% infusion 150 mL/hr, intravenous, Continuous, Starting on Tue11/28/23 at 1530 1530 (Due) FOR RECORDS PERTAINING TO PATIENTS WHO ARE OR HAVE BEEN ENROLLED IN A CHEMICAL DEPENDENCY/SUBSTANCEABUSE PROGRAM, SOME INFORMATION MAY BE OMITTED. This clinical summary was aggregated from multiple sources. Caution should be exercised in using it in the provision of clinical care. This summary normalizes information from multiple sources, and as a consequence, information in this document may materially change the coding, format and clinical context of patient data. In addition, data may be omitted in some cases. CLINICAL DECISIONS SHOULD BE BASED ON THE PRIMARY CLINICAL RECORDS. [facility]. provides no warranty or guarantee of the accuracy or completeness of information in this document.
[2023-11-30 17:21] LABS: Absolute Lymphocyte Count 1.27 X10^3/uL (0.83-4.51); Absolute Neutrophil Count 3.5 X10^3/uL (2.0-7.7); Basophil# 0.04 X10^3/uL; Basophil% 0.7 % (0-1); Eosinophil# 0.18 X10^3/uL; Eosinophils% 3.3 % (0-5); Hematocrit 37.8 % (37-47); Hemoglobin 12.3 g/dL (12.0-15.0); Lymphocyte # 1.27 X10^3/ul (0.83-4.51); Mean Corp Hgb Conc 32.5 g/dL (32-36); Mean Corpuscular Volume 89.2 fL (81-99); Mean Platelet Vol. 10.9 fl (6.2-12.0); Monocyte# 0.48 X10^3/uL; Monocyte% 8.7 % (0-10); NRBC Flagged by Analyzer 0 % (0-5); Neutrophil # 3.54 X10^3/uL (2.7-7.7); Neutrophil % 64.1 % (47-70); Platelet Count 235 K/mm3 (150-450); RBC Distribution Width CV 13.4 % (11.6-14.6); RBC Distribution Width SD 43.9 fl (35.1-43.9); Red Blood Count 4.24 M/mm3 (4.2-5.4); White Blood Count 5.5 K/mm3 (4.4-11.0)
[2023-11-30 17:33] LABS: Color, Urine Yellow (Yellow); Glucose, Dipstick 50 mg/dl (Normal); Ketone-Dipstick Negative (Negative); Leukocyte Esterase-Dipstick Negative /ul (Negative); Nitrite-Dipstick Negative (Negative); Occult Blood-Urine 10 /ul (Negative); Protein-Dipstick 30 mg/dl (Negative); Specific Gravity, Urine 1.015 (1.002-1.030); Urine Bilirubin Dipstick Negative (Negative); Urine Clarity Clear (Clear); Urine Urobilinogen Normal (Normal)
[2023-11-30 17:36] LABS: Anion Gap 5 (5-15); BUN 23 mg/dL (7-18); BUN/Creat Ratio 12.6 RATIO (10-20); Calcium,Total 10.5 mg/dL (8.5-10.1); Chloride 99 mmol/L (98-107); Creatinine, Serum 1.83 mg/dL (0.55-1.02); EST Glomerular Filtration Rate 29 mL/min (>60); Est Glom Filt Rate - Afr Amer 35 mL/min (>60); Estimated Creatinine Clearance 21.59 ml/min; Glucose 215 mg/dL (74-106); Potassium 3.7 mmol/L (3.5-5.1); Sodium Level 139 mmol/L (136-145)
[2023-11-30 18:07] LABS: Alcohol, Blood (Medical)-Serum < 3.0 mg/dL
[2023-11-30 18:15] LABS: Amphetamine Urine VISTA NEGATIVE (<1000 ng/mL); Barbiturate Urine VISTA NEGATIVE (< 200 ng/mL); Benzodiazepine Urine VISTA NEGATIVE (< 200 ng/mL); Cocaine Urine VISTA NEGATIVE (< 300 ng/mL); Ecstacy Urine VISTA NEGATIVE (< 500 ng/mL); Methadone Urine VISTA NEGATIVE (< 300 ng/mL); PCP Urine VISTA NEGATIVE (< 25 ng/mL); THC Urine VISTA NEGATIVE (< 50 ng/mL); Vista UDS pH Range 4
[2023-11-30 18:30] VITALS: BP 125/67; PULSE 78; RESP 16; O2SAT 97
--- NOTE | 2023-11-30 18:54 | CM.ED ---
Social Work Psychiatric Assessment Reason for consult: Mental Health Informant(s): Patient, medical record, spouse ? Hero and daughter ? Lilian? Chief Complaint: PCP Dr. Morel sent patient to ED for eval due to not caring for ADL?s Marital/Social History/Living Situation: Patient is a 68-year-old female that reports living with her , Hero. Pt?s daughter Lilian lives next door with their grandchildren. History: None Education and Employment History: Patient reports finishing college and retiring from the [employer]. Mental Health Treatment/History: Patient is a poor historian. Pt denies mental health conditions and medications. Patient?s spouse reports he believes she had a schizophrenia diagnosis in 2011 at a psychiatric hospital is not certain. Spouse reports patient has cycled through similar episodes every few years in the winter. Spouse reports in the past she has taken olanzapine, mirtazapine, and trazadone. Pt was taken off of medications and then was only taking mirtazapine until it was discontinued. Substance Abuse Hx: Substance abuse denied Abuse Issues/Trauma HX: Pt denies. Risk to Self/Others: Patient denies SI/HI and any history of attempts. Pt does reports some thoughts of hurting other people but no specific plan or person. Triggers/Stressors/Risk factors: season and not on medication Coping Skills: Grandchildren Support/Resources: and four children Mental Status Exam: ?Pt is oriented to self and location. Pt does not know the day of the week or the year or why she is at the hospital. Pt asks to ?come back? to these questions but when asked later, still unable to provide answers. Appearance/General Behavior/Mood/Affect: Pt is unkempt and disheveled. Pt is laying in bed and presents as despondent. Pt has a flat mood and affect. Pt denies mood swings but spouse reports anger and mood swings. Communication Pattern/Thought process: Pt unable to communicate effectively. Pt is a poor historian. Pt unable to process information and questions being asked. Pt provides short one-word answers that are mostly inaccurate. Pt does report hearing voices. Pt denies visual hallucinations. General Intellectual Functioning:?? Average Judgment/Insight: Pt presents with poor judgment and insight. Assessment: Patient presents at ED at request of PCP, Dr. Morel for mental health concerns. Pt has had significant decline in mental health in the past several days. Pt?s spouse reports patient has had similar episodes every several years since 2012 with first episode/psychiatric placement. Spouse reports he believes patient was diagnosed with schizophrenia at that time but he is not certain. Spouse reports patient was seeing people that were not there and hearing voices. Pt does acknowledge hearing voices currently but denies visual hallucinations. Pt denies mental health diagnoses and medications. Pt reports, ?I was put on medication but did not need to be. They were placebos.? Pt?s spouse reports in the last few days she has become completely resistance to eating, drinking, bathing and ADL?s in general. Spouse reports she last bathed at his prompting with his assistance in bathing and dressing. Pt denies physical impairment that would stop her from caring for herself. Pt?s spouse reports she has only drank chocolate milk today at his prompting. Pt had cereal and some sloppy starr meat yesterday at his urging. Pt denies desire to eat or drink and reports she will not feed herself or drink water. Pt is diabetic and when asked about the need to eat, she denies concern. When asked how she has been feeling, patient reports just tired. Spouse reports this is similar to other episodes that have occurred in the past and it is always in the winter and when she is no longer on medications. Pt has had 2 previous psychiatric placements. Pt presents as disoriented, a poor historian, and poor memory/judgment. Pt?s spouse reports this is not patient?s baseline but that when she is like this she will rapidly decline. Pt is argumentative with spouse and is resistant to his prompts to eat, drink, and bathe. Pt?s spouse reports in the past two days he has been unable to care for her due to her refusal. Pt frequently unable to answer basic questions and says ?let?s come back to that? and then still unable to answer when asked later. Pt responses are sometimes unrelated to question asked and nonsensical. Pt does not make eye contact and presents as despondent. Pt does deny wanting to harm herself. Pt?s daughter noted that in the last few days patient has been staying up at night, hyper-focused, calling/texting and emailing people in the middle of the night, pre-occupied with events in childhood, more difficult in the evening, and saying she is in pain and can?t walk. Pt has been medically evaluated and cleared. Patient would benefit from inpatient psychiatric placement for stabilization due to inability to care for self, not completing ADL?s, auditory hallucinations, disorientation, and despondency. ED physician is in agreement with placement. Plan: Patient to be referred for inpatient psychiatric placement for stabilization. Anaya Melton BODYWORK THERAPIST, MEDICAL AFFAIRS SPECIALIST
[2023-11-30 20:10] VITALS: BP 107/57; PULSE 79; RESP 18; O2SAT 99
--- NOTE | 2023-11-30 20:37 | CM.ED ---
Social Work Pt declined at [facility] for medical acuity. Pt accepted to [facility], pink slip faxed to them. [place] location room 208A, Dr. Bermudez. Report - [phone]. Pt and spouse notified. Pending 7am transport. Anaya Melton WINCH TRUCK OPERATOR, FLOOR HAND
[2023-11-30 21:57] VITALS: BP 127/86; PULSE 78; RESP 20; O2SAT 96
--- NOTE | 2023-11-30 22:45 | EDS_ITS ---
HPI History of Present Illness Chief Complaint: General Illness Detail of Chief Complaint: Depressed Informant: spouse/S.O. Onset/Context/Timing Onset: Weeks Context: Gradual Onset Timing: Continuous Quality: Lack of activity, sleeping all the time, decreased p.o. intake Location: Lives with Current Severity: Moderate Maximum Severity: Severe Worsened by: unknown Relieved by: Nothing Associated Symptoms Associated Symptoms: Denies suicidal ideation Narrative Narrative: Patient is a 68-year-old woman and hospitalization 3 years ago. informed the social media marketing manager that she does have history of schizophrenia or schizoaffective disorder. He informed both the social media marketing manager and me that the medication was discontinued by her psychiatrist approximately 3 years ago. He states every 2 to 3 years she gets worse requiring treatment. has not bathed in over 6 days. Has not brushed her teeth in 5 days. He states all she does is lying on the couch or bed. She does not interact with him. Apparently she had only a glass of milk today. brought her food which she would not eat. He states she has not eaten well for over a week. History is limited because of patient not forthcoming with information. Her responses were different than her 's as well. Prior similar symptoms: Yes Recent Illness/Hospitalization: No [facility] Medical History BALDO (acute kidney injury) Anemia Anemia Anemia of chronic renal failure, stage 3 (moderate) Back problem BMI 37.0-37.9, adult Bone fracture Cataracts, bilateral Chronic kidney disease, stage 3a Chronic renal disease, stage 3, moderately decreased glomerular filtration rate (GFR) between 30-59 mL/min/1.73 square meter Laura syndrome Debility Depression Diabetes mellitus Diabetes mellitus type 2 in obese Diabetes type 2, controlled Edema Gastroesophageal reflux disease History of chronic kidney disease History of diabetes mellitus Hyperlipidemia Hyperlipidemia associated with type 2 diabetes mellitus Iron deficiency anemia due to chronic blood loss Major depressive disorder, recurrent episode Malaise and fatigue Morbid obesity Nonhealing nonsurgical wound with fat layer exposed Obstructive sleep apnea on CPAP Obstructive sleep apnea syndrome Osteopenia Pancreatitis Vision problems Wound of skin Home Medications atorvastatin 40 mg tablet 40 mg PO QHS Cholesterol 01/06/20 [History Last Taken 02/05/23] pantoprazole 40 mg tablet,delayed release 40 mg PO DAILY Gerd 09/10/20 [History Last Taken 02/05/23] furosemide 40 mg tablet 40 mg PO DAILY FLUID 07/16/22 [History Last Taken 02/05/23] potassium chloride 20 mEq tablet,extended release(part/cryst) 40 meq PO BID SUPPLEMENT 10/25/22 [History Last Taken 02/05/23] ferrous fumarate-vit C-vit B12 1 gummy PO/SL DAILY SUPPLEMENT 01/25/23 [History Last Taken 02/05/23] mifepristone 300 mg tablet (Korlym) 600 mg PO DAILY 03/07/23 [History Last Taken Unknown] cholecalciferol (vitamin D3) 10 mcg (400 unit) tablet 20 mcg PO DAILY 08/19/23 [History Last Taken Unknown] levothyroxine 75 mcg capsule 75 mcg PO DAILY 08/19/23 [History Last Taken Unknown] insulin degludec 100 unit/mL (3 mL) subcutaneous pen (Tresiba FlexTouch U-100 insulin) 30 unit subcut QHS 11/30/23 [History Last Taken Unknown] spironolactone 100 mg tablet 100 mg PO DAILY 11/30/23 [History Last Taken Unknown] Allergy/AdvReac Type Severity Reaction Status Date / Time adhesive tape AdvReac Intermediate Rash Verified 11/30/23 16:13 codeine AdvReac Intermediate Dizziness Verified 11/30/23 16:13 Family History Mother Diabetes Father Heart disease Hypertension Surgical History Hx of appendectomy Hx of cataract surgery Hx of cholecystectomy S/P hemodialysis catheter insertion S/P partial hysterectomy Status post ORIF of fracture of ankle Social History household members: spouse Smoking Status: Never smoker second hand exposure: No alcohol intake: never substance use type: does not use salas/restorationist: Adventist seatbelt use: always do you feel safe at home: Yes ROS ROS ED Review of Systems ROS Unobtainable: due to mental status Constitutional Constitutional ED: Denies chills, fever(s), subjective, sweats or weight loss Eyes Eyes: Denies blurry vision, change in vision or diplopia ENT ENT ED: Denies rhinorrhea or sore throat Cardiovascular Cardiovascular: Denies chest pain or palpitations Respiratory/Chest Respiratory/Chest: Denies cough, dyspnea or dyspnea on exertion Gastrointestinal Gastrointestinal: Denies abdominal pain, nausea or vomiting Genitourinary Genitourinary ED: Denies dysuria, hematuria or urinary frequency Musculoskeletal Musculoskeletal: Denies arthralgias, back pain or myalgias Integumentary Denies rash Neurologic Neurologic: Reports weakness; Denies headache(s) or paresthesias Psychiatric Psychiatric: Reports depression; Denies anxiety, suicidal ideation or suicidal thoughts Endocrine Endocrinology: Denies cold intolerance or heat intolerance Hematologic/Lymphatic Hematologic/Lymphatic: Reports systems reviewed and no addt'l complaints, except as documented EXAM Physical Exam Const Vital Signs: 11/30/23 16:10 11/30/23 18:30 11/30/23 20:10 Temperature 97.2 F L Temperature Source Temporal Pulse Rate 79 78 79 Respiratory Rate 16 16 18 Blood Pressure 130/64 H 125/67 H 107/57 L Blood Pressure Mean 86 86 73 Pulse Ox 95 97 99 Oxygen Delivery Method Room Air Room Air Room Air 11/30/23 21:57 Temperature Temperature Source Pulse Rate 78 Respiratory Rate 20 H Blood Pressure 127/86 H Blood Pressure Mean 99 Pulse Ox 96 Oxygen Delivery Method Room Air Positive well nourished, well developed and unkempt Constitutional Narrative: Patient has body odor. Patient's breath has odor as well. She has poor dentition with evidence of periodontal disease and gingivitis. There is no eye contact during the entire history and physical. General Appearance ED: unkempt, well developed and NAD; Negative for cyanotic, diaphoretic or pallor HEENT Reports dry mucous membranes HEENT Narrative: Poor dentition. Negative for trauma or tenderness Mouth ED: Yes dry mucous membranes Mouth: dry mucous membranes Eyes PERRL and EOMs intact bilaterally Neck no lymphadenopathy, supple and no JVD Chest Wall inspection of chest normal and palpation of chest normal Resp normal respiratory effort and clear to auscultation bilaterally Cardio regular rate, regular rhythm, S1 normal heart sound, S2 normal heart sound and no murmurs GI normal to inspection, nondistended, normoactive bowel sounds, non-tender, non- distended and no masses; Negative for hepatosplenomegaly Palpation: soft Back/Spine no CVA tenderness Thoracic Spine / Upper Back: Negative for thoracic spinal tenderness Lumbar Spine / Lower Back: Negative for lumbar spinal tenderness Extremity normal to inspection General Extremety ED: Negative for edema or tenderness General Extremity: Negative for edema Neuro oriented x3, CN's II-XII intact bilaterally and no sensory deficits noted Neuro Narrative: Patient is awake. She is not interactive. Sensorium / Orientation: Negative for alert Psych Appearance: unkempt Mood & Affect: depressed Skin no rashes or lesions noted, no wounds and skin turgor normal General Skin Exam: Negative for jaundice or pallor MDM MDM MDM Narrative Medical decision making narrative: Patient is depressed. Suspect she is not caring for herself because of this. Review of old labs reveals chronic kidney disease. He is limited. Because of her poor p.o. intake will obtain electrolytes to assess for renal dysfunction since she has history of chronic kidney disease as well as glucose since she has history of diabetes. Will obtain UA since she reported frequency even though states she has not. Talk screen was obtained as well as alcohol level. Patient was pink slipped by me. In my opinion patient requires hospitalization for severe depression. Lab Data Attestation: I reviewed the patient's lab results. Lab results narrative: CBC is normal. Basic metabolic panel reveals a BUN of 23 with a creatinine of 1.83 with an estimated GFR of 29. UA is negative. Talk screen is negative. Alcohol is negative. Creatinine has been elevated in the past. Slightly higher today. Labs: Laboratory Results - last 24 hr 11/30/23 17:10 WBC 5.5 RBC 4.24 Hgb 12.3 Hct 37.8 MCV 89.2 MCH 29.0 MCHC 32.5 RDW Std Deviation 43.9 RDW Coeff of Joe 13.4 Plt Count 235 MPV 10.9 Immature Gran % (Auto) 0.200 Neut % (Auto) 64.1 Lymph % (Auto) 23.0 [place] % (Auto) 8.7 Eos % (Auto) 3.3 Baso % (Auto) 0.7 Absolute Neuts (auto) 3.5 Absolute Lymphs (auto) 1.27 Nucleated RBC % 0 Sodium 139 Potassium 3.7 Chloride 99 Carbon Dioxide 35.0 H Anion Gap 5 BUN 23 H Creatinine 1.83 H Estim Creat Clear Calc 21.59 Est GFR (MDRD) Af Amer 35 L Est GFR (MDRD) Non-Af 29 L BUN/Creatinine Ratio 12.6 Glucose 215 H Calcium 10.5 H Urine Color Yellow Urine Clarity Clear Urine pH 5.0 Ur Specific Maria Stein 1.015 Urine Protein 30 H Urine Glucose (UA) 50 H Urine Ketones Negative Urine Occult Blood 10 H Urine Nitrite Negative Urine Bilirubin Negative Urine Urobilinogen Normal Ur Leukocyte Esterase Negative Urine RBC 0 SEEN Urine WBC 0 SEEN Ur Squamous Epith Cells 0 SEEN Urine Bacteria 0 SEEN Urine Mucus 0 SEEN Urine Opiates Screen NEGATIVE Urine Methadone Screen NEGATIVE Ur Barbiturates Screen NEGATIVE Ur Phencyclidine Scrn NEGATIVE Ur Amphetamines Screen NEGATIVE MDMA (Ecstasy) Screen NEGATIVE U Benzodiazepines Scrn NEGATIVE Urine Cocaine Screen NEGATIVE U Cannabinoids Screen NEGATIVE Ur Drug Screen Comment Ethyl Alcohol < 3.0 EKG Initial EKG: Attestation: I personally reviewed and interpreted this EKG as follows: Interpretation: Sinus Rhythm (Sinus rhythm rate of 78. MA interval is 206 ms. QRS duration 126 ms and QRS morphology consistent with a right bundle branch block and there is also evidence of a left anterior fascicular block. QT duration 404 ms. [place] is to the left. There is no acute ischemic changes.) Treatment and Re-Evaluation :: Case management has seen her. Case management informing that she was accepted at [facility]. Unfortunately, patient will need to stay till the morning when an ambulance is available for transportation. Discharge Plan Triage Chief Complaint: General Illness ED Provider: Fuentes Jenkins Dx/Rx/DC Orders Clinical Impression: Major depression, Chronic renal disease, stage 3, moderately decreased glomerul ar filtration rate (GFR) between 30-59 mL/min/1.73 square meter, Overweight, Neuropathy, Type 1 diabetes mellitus with hyperglycemia, History of hypertension Prescriptions: No Action furosemide 40 mg tablet 40 mg PO DAILY Korlym 300 mg tablet 600 mg PO DAILY cholecalciferol (vitamin D3) 10 mcg (400 unit) tablet 20 mcg PO DAILY levothyroxine 75 mcg capsule 75 mcg PO DAILY atorvastatin 40 MG tablet 40 mg PO QHS pantoprazole 40 MG tablet,delayed release (DR/EC) 40 mg PO DAILY potassium chloride 20 mEq Tablet,Er Particles/Crystals 40 meq PO BID ferrous fumarate-vit C-vit B12 1 gummy PO/SL DAILY insulin degludec [Tresiba FlexTouch U-100] 100 unit/mL (3 mL) insulin pen 30 unit SUBCUT QHS Patient Comments: INJECT 30 UNITS SUBCUTANEOUSLY DAILY spironolactone 100 mg tablet 100 mg PO DAILY Patient Comments: TAKE 1 TABLET BY MOUTH EVERY DAY Primary Care Provider: Crow Morel Chi Referrals: Crow Morel Chi, MD [Primary Care Provider] - Disposition Disposition: Psychiatric Hospital or Unit Discharge Location: [facility] [address]
[2023-11-30 23:25] VITALS: BP 121/58; PULSE 84; RESP 18; O2SAT 94
[2023-12-01 02:00] VITALS: BP 117/55; PULSE 83; RESP 18; O2SAT 96
[2023-12-01 03:26] VITALS: BP 116/57; PULSE 80; RESP 14; O2SAT 95
[2023-12-01 04:00] VITALS: BP 113/61; PULSE 83; RESP 16; O2SAT 95
[2023-12-01 06:00] VITALS: BP 121/65; PULSE 73; RESP 17; O2SAT 98
[2023-12-01 07:08] LABS: Bedside Glucose 124 mg/dL (74-106)
== END 2023-12-01 07:47 ==
PROVIDERS: Emergency Provider Emergency Medicine; PCP Family Medicine Geriatric Medicine; Visit Provider Emergency Medicine
DX: F32.9 Major depressive disorder, single episode, unspecified (principal); E10.22 Type 1 diabetes mellitus with diabetic chronic kidney disease; E10.40 Type 1 diabetes mellitus with diabetic neuropathy, unspecified; E10.65 Type 1 diabetes mellitus with hyperglycemia; Z79.4 Long term (current) use of insulin; N18.30 Chronic kidney disease, stage 3 unspecified; E66.3 Overweight; I12.9 Hypertensive chronic kidney disease with stage 1 through stage 4 chronic kidney disease, or unspecified chronic kidney disease; G62.9 Polyneuropathy, unspecified; R94.4 Abnormal results of kidney function studies; E78.5 Hyperlipidemia, unspecified; Z79.899 Other long term (current) drug therapy; K21.9 Gastro-esophageal reflux disease without esophagitis; Z90.49 Acquired absence of other specified parts of digestive tract; Z90.710 Acquired absence of both cervix and uterus
CPT/HCPCS: 80048; 80307; 80320; 81001; 82962; 85025; 87811; 93005; 99285; J7030; P9612; A4216; G0480

== ENCOUNTER → 2024-02-29 | Outpatient (CLI) | payer MEDICARE, BC, SELFPAY ==
[2024-02-29 16:39] LABS: Absolute Lymphocyte Count 1.69 X10^3/uL (0.83-4.51); Absolute Neutrophil Count 4.4 X10^3/uL (2.0-7.7); Basophil# 0.03 X10^3/uL; Basophil% 0.4 % (0-1); Eosinophil# 0.17 X10^3/uL; Eosinophils% 2.5 % (0-5); Hematocrit 35.6 % (37-47); Hemoglobin 11.4 g/dL (12.0-15.0); Lymphocyte # 1.69 X10^3/ul (0.83-4.51); Mean Corpuscular Hgb 28.6 pg (27.0-32.0); Mean Corpuscular Volume 89.2 fL (81-99); Mean Platelet Vol. 10.3 fl (6.2-12.0); Monocyte# 0.44 X10^3/uL; Monocyte% 6.5 % (0-10); NRBC Flagged by Analyzer 0 % (0-5); Neutrophil # 4.42 X10^3/uL (2.7-7.7); Neutrophil % 65.3 % (47-70); Platelet Count 261 K/mm3 (150-450); RBC Distribution Width CV 14.6 % (11.6-14.6); RBC Distribution Width SD 47.8 fl (35.1-43.9); Red Blood Count 3.99 M/mm3 (4.2-5.4); White Blood Count 6.8 K/mm3 (4.4-11.0)
[2024-02-29 16:51] LABS: Vitamin D,25 Hydroxy 37.2 ng/mL
[2024-02-29 16:55] LABS: Hemoglobin A1c 7.5 % (3.8-5.6)
[2024-02-29 17:07] LABS: ALB/GLOB Ratio 0.9 RATIO (0.9-2.4); AST(SGOT) 15 U/L (15-37); Alanine Aminotransfer ALT/SGPT 16 U/L (13-56); Alkaline Phosphatase 71 U/L (45-117); Anion Gap 6 (5-15); BUN 20 mg/dL (7-18); BUN/Creat Ratio 18.5 RATIO (10-20); Calcium,Total 8.7 mg/dL (8.5-10.1); Chloride 102 mmol/L (98-107); Cholesterol 116 mg/dL (200); Creatinine, Serum 1.08 mg/dL (0.55-1.02); EST Glomerular Filtration Rate 53 mL/min (>60); Est Glom Filt Rate - Afr Amer 64 mL/min (>60); Globulin 3.4 g/dL (2.2-4.2); Glucose 142 mg/dL (74-106); High Density Lipoprotein 33 mg/dL; Potassium 3.3 mmol/L (3.5-5.1); Protein, Total 6.4 g/dL (6.4-8.2); Sodium Level 139 mmol/L (136-145); Thyroid Stim Hormone (TSH) 3.54 uIU/mL (0.358-3.74); Triglycerides 95 mg/dL; Very Low Density Lipoprotein 19 mg/dL (5-40)
== END | disposition home or self-care (01) ==
LOC: POLAB3 15:25
PROVIDERS: PCP Family Medicine Geriatric Medicine; Visit Provider Family Medicine Geriatric Medicine
DX: E78.5 Hyperlipidemia, unspecified (principal); E11.65 Type 2 diabetes mellitus with hyperglycemia; R53.83 Other fatigue; E55.9 Vitamin D deficiency, unspecified
CPT/HCPCS: 36415; 80053; 80061; 82306; 83036; 84443; 85025

== ENCOUNTER 2024-03-09 14:52 | Outpatient (CLI) | payer MEDICARE, BC, SELFPAY ==
[2024-03-09 15:50] LABS: Absolute Lymphocyte Count 1.89 X10^3/uL (0.83-4.51); Absolute Neutrophil Count 4.6 X10^3/uL (2.0-7.7); Basophil# 0.02 X10^3/uL; Basophil% 0.3 % (0-1); Eosinophils% 2.8 % (0-5); Hematocrit 38.1 % (37-47); Hemoglobin 12.2 g/dL (12.0-15.0); Lymphocyte # 1.89 X10^3/ul (0.83-4.51); Lymphocyte % 26.3 % (19-41); Mean Corpuscular Hgb 28.6 pg (27.0-32.0); Mean Corpuscular Volume 89.4 fL (81-99); Monocyte# 0.46 X10^3/uL; Monocyte% 6.4 % (0-10); NRBC Flagged by Analyzer 0 % (0-5); Neutrophil # 4.59 X10^3/uL (2.7-7.7); Neutrophil % 63.9 % (47-70); Platelet Count 247 K/mm3 (150-450); RBC Distribution Width CV 14.3 % (11.6-14.6); RBC Distribution Width SD 47.3 fl (35.1-43.9); Red Blood Count 4.26 M/mm3 (4.2-5.4); White Blood Count 7.2 K/mm3 (4.4-11.0)
[2024-03-09 16:34] LABS: Anion Gap 1 (5-15); BUN 32 mg/dL (7-18); Calcium,Total 9.1 mg/dL (8.5-10.1); Chloride 98 mmol/L (98-107); Creatinine, Serum 1.28 mg/dL (0.55-1.02); EST Glomerular Filtration Rate 44 mL/min (>60); Est Glom Filt Rate - Afr Amer 53 mL/min (>60); Ferritin 113 ng/mL (8-252); Glucose 232 mg/dL (74-106); Iron 75 ug/dL (50-170); Iron Binding Capacity,Total 321 ug/dL (250-450); PERCENT IRON SATURATION 23.4 % (15.0-55.0); Potassium 4.7 mmol/L (3.5-5.1); Sodium Level 133 mmol/L (136-145)
[2024-03-09 23:10] LABS: Xtra Tube EP Lab EXTRA TUBE
== END 2024-03-09 23:59 | disposition home or self-care (01) ==
LOC: LAB.FUTURE 14:55
PROVIDERS: Internal Medicine Hematology & Oncology; PCP Family Medicine Geriatric Medicine; Referring Provider Family Medicine Geriatric Medicine; Visit Provider Family Medicine Geriatric Medicine
DX: E78.5 Hyperlipidemia, unspecified (principal); D50.0 Iron deficiency anemia secondary to blood loss (chronic)
CPT/HCPCS: 80048; 82728; 83540; 83550; 85025

== ENCOUNTER → 2024-05-22 | Outpatient (CLI) | payer MEDICARE, BC, SELFPAY ==
[2024-05-22 12:59] LABS: Vitamin D,25 Hydroxy 48.4 ng/mL
== END | disposition home or self-care (01) ==
LOC: LAB 11:45
PROVIDERS: PCP Family Medicine Geriatric Medicine; Referring Provider Internal Medicine Nephrology; Visit Provider Internal Medicine Nephrology
DX: R53.83 Other fatigue (principal); E11.65 Type 2 diabetes mellitus with hyperglycemia; E55.9 Vitamin D deficiency, unspecified; E78.5 Hyperlipidemia, unspecified
CPT/HCPCS: 36415; 80053; 80061; 82043; 82306; 82570; 83036; 84156; 84443

== ENCOUNTER → 2024-06-06 | Outpatient (CLI) | payer MEDICARE, BC, SELFPAY ==
[2024-06-06 11:37] LABS: Absolute Lymphocyte Count 1.67 X10^3/uL (0.83-4.51); Absolute Neutrophil Count 2.3 X10^3/uL (2.0-7.7); Basophil# 0.02 X10^3/uL; Basophil% 0.5 % (0-1); Eosinophils% 2.3 % (0-5); Hematocrit 34.5 % (37-47); Hemoglobin 11.3 g/dL (12.0-15.0); Lymphocyte # 1.67 X10^3/ul (0.83-4.51); Lymphocyte % 37.9 % (19-41); Mean Corp Hgb Conc 32.8 g/dL (32-36); Mean Corpuscular Hgb 29.5 pg (27.0-32.0); Mean Corpuscular Volume 90.1 fL (81-99); Mean Platelet Vol. 11.4 fl (6.2-12.0); Monocyte# 0.29 X10^3/uL; Monocyte% 6.6 % (0-10); NRBC Flagged by Analyzer 0 % (0-5); Neutrophil # 2.32 X10^3/uL (2.7-7.7); Neutrophil % 52.5 % (47-70); Platelet Count 195 K/mm3 (150-450); RBC Distribution Width SD 49.1 fl (35.1-43.9); Red Blood Count 3.83 M/mm3 (4.2-5.4); White Blood Count 4.4 K/mm3 (4.4-11.0)
[2024-06-06 12:07] LABS: ALB/GLOB Ratio 1.1 RATIO (0.9-2.4); AST(SGOT) 24 U/L (15-37); Alanine Aminotransfer ALT/SGPT 22 U/L (13-56); Albumin, Serum 3.6 g/dL (3.2-5.0); Alkaline Phosphatase 106 U/L (45-117); Anion Gap 8 (5-15); BUN 16 mg/dL (7-18); BUN/Creat Ratio 12.9 RATIO (10-20); Calcium,Total 8.9 mg/dL (8.5-10.1); Chloride 100 mmol/L (98-107); Cholesterol 100 mg/dL (200); Creatinine, Serum 1.24 mg/dL (0.55-1.02); EST Glomerular Filtration Rate 45 mL/min (>60); Est Glom Filt Rate - Afr Amer 55 mL/min (>60); Globulin 3.3 g/dL (2.2-4.2); Glucose 150 mg/dL (74-106); High Density Lipoprotein 32 mg/dL; Phosphorus 2.7 mg/dL (2.5-4.9); Potassium 3.3 mmol/L (3.5-5.1); Protein, Total 6.9 g/dL (6.4-8.2); Sodium Level 138 mmol/L (136-145); Thyroid Stim Hormone (TSH) 2.58 uIU/mL (0.358-3.74); Triglycerides 112 mg/dL; Very Low Density Lipoprotein 22 mg/dL (5-40)
[2024-06-06 12:09] LABS: Microalbumin,Random Urine 38.2 mg/L (NO RANGE EST.); Microalbumin:Creatinine Ratio 157.9 mg/g CRE (<30 mg/g CRE)
[2024-06-06 13:47] LABS: Hemoglobin A1c 7.4 % (3.8-5.6)
== END | disposition home or self-care (01) ==
LOC: LAB 11:00
PROVIDERS: PCP Family Medicine Geriatric Medicine; Visit Provider Family Medicine Geriatric Medicine
DX: N18.31 Chronic kidney disease, stage 3a (principal); E11.22 Type 2 diabetes mellitus with diabetic chronic kidney disease; E11.65 Type 2 diabetes mellitus with hyperglycemia; R53.83 Other fatigue; E55.9 Vitamin D deficiency, unspecified; E78.5 Hyperlipidemia, unspecified
CPT/HCPCS: 36415; 80053; 80061; 82043; 82306; 82570; 83036; 84100; 84443; 85025

== ENCOUNTER → 2024-09-07 | Outpatient (CLI) | payer MEDICARE, BC, SELFPAY ==
--- NOTE | 2024-09-07 13:38 | BI_ITS ---
MAMMOGRAPHY - BILATERAL SCREENING REASON FOR EXAM: Female, 69 years old. Routine annual screening examination. PERTINENT HISTORY: Non-contributory. TECHNIQUE: Digital bilateral breast joseluis (3D mammographic acquisition) in the CC and MLO projections. 2-D mediolateral oblique (MLO) and craniocaudad (CC) views of both breasts were obtained. CAD: Full Field Digital Mammography with Computer Added Detection was performed. COMPARISON: Comparison is made with prior study dated September 10, 2022 and October 08, 2020. FINDINGS: Breast Composition: The breasts are heterogeneously dense, which may obscure small masses. Increase in the cluster microcalcification in the deep central portion of the left breast. The patient will be recalled for additional views. No other significant abnormalities are identified. BI/SCRN MAMM (CAD)W/JOSELUIS BILAT IMPRESSION: Increase in the cluster of microcalcifications in the central portion of left breast as described. The patient will be recalled for magnification views. Recall Side: Left Breast ASSESSMENT CATEGORY: BIRADS Category 0: Incomplete. Need additional imaging evaluation. A letter regarding these results will be sent to the patient by the facility within 30 days. Approximately 10% of breast cancers are not detected by mammography. A normal mammogram should not delay biopsy of a clinically suspicious abnormality. [id number] Electronically Signed: Lee Montenegro MD at 15:49 EDT ,
== END | disposition home or self-care (01) ==
PROVIDERS: PCP Family Medicine Geriatric Medicine; Referring Provider Family Medicine Geriatric Medicine; Visit Provider Family Medicine Geriatric Medicine
DX: Z12.31 Encounter for screening mammogram for malignant neoplasm of breast (principal)
CPT/HCPCS: 77063; 77067

== ENCOUNTER → 2024-09-17 | Outpatient (CLI) | payer MEDICARE, BC, SELFPAY ==
--- NOTE | 2024-09-17 14:20 | BI_ITS ---
MAMMOGRAPHY - UNILATERAL DIAGNOSTIC: LEFT BREAST REASON FOR EXAM: Female, 69 years old. Abnormal screening mammogram. PERTINENT HISTORY: Non-contributory. TECHNIQUE: Mastication spot views of the left breast in the craniocaudad and mediolateral oblique projections were obtained. CAD: Full Field Digital Mammography with Computer Added Detection was performed. COMPARISON: Comparison is made with prior mammogram dated September 07, 2024. FINDINGS: Breast Composition: The breasts are heterogeneously dense, which may obscure small masses. The cluster microcalcifications are once again seen. This is increased as compared to prior study. Biopsy recommended. No other significant abnormalities are identified. BI/DIAG MAMM W/CAD, UNILAT IMPRESSION: Biopsy of the cluster microcalcification is recommended. ASSESSMENT CATEGORY: BIRADS Category 4: Suspicious - Biopsy Should Be Considered. A letter regarding these results will be sent to the patient by the facility within 30 days. Approximately 10% of breast cancers are not detected by mammography. A normal mammogram should not delay biopsy of a clinically suspicious abnormality. Electronically Signed: Lee Montenegro MD at 14:51 EDT ,
== END | disposition home or self-care (01) ==
LOC: OPBI 14:16
PROVIDERS: PCP Family Medicine Geriatric Medicine; Referring Provider Family Medicine Geriatric Medicine; Visit Provider Family Medicine Geriatric Medicine
DX: R92.0 Mammographic microcalcification found on diagnostic imaging of breast (principal)
CPT/HCPCS: 77065

== ENCOUNTER → 2024-09-25 | Outpatient (CLI) | payer MEDICARE, BC, SELFPAY ==
[2024-09-25 12:26] LABS: Absolute Lymphocyte Count 1.38 X10^3/uL (0.83-4.51); Absolute Neutrophil Count 3.6 X10^3/uL (2.0-7.7); Basophil# 0.02 X10^3/uL; Basophil% 0.4 % (0-1); Eosinophil# 0.13 X10^3/uL; Eosinophils% 2.4 % (0-5); Hematocrit 34.7 % (37-47); Hemoglobin 11.4 g/dL (12.0-15.0); Lymphocyte # 1.38 X10^3/ul (0.83-4.51); Mean Corp Hgb Conc 32.9 g/dL (32-36); Mean Corpuscular Hgb 29.9 pg (27.0-32.0); Mean Corpuscular Volume 91.1 fL (81-99); Mean Platelet Vol. 11.1 fl (6.2-12.0); Monocyte# 0.37 X10^3/uL; Monocyte% 6.7 % (0-10); NRBC Flagged by Analyzer 0 % (0-5); Neutrophil % 65.1 % (47-70); Platelet Count 243 K/mm3 (150-450); RBC Distribution Width CV 14.3 % (11.6-14.6); RBC Distribution Width SD 47.8 fl (35.1-43.9); Red Blood Count 3.81 M/mm3 (4.2-5.4); White Blood Count 5.5 K/mm3 (4.4-11.0)
[2024-09-25 12:53] LABS: Vitamin D,25 Hydroxy 37.8 ng/mL
[2024-09-25 13:00] LABS: ALB/GLOB Ratio 0.9 RATIO (0.9-2.4); AST(SGOT) 27 U/L (15-37); Alanine Aminotransfer ALT/SGPT 21 U/L (13-56); Albumin, Serum 3.6 g/dL (3.2-5.0); Alkaline Phosphatase 132 U/L (45-117); Anion Gap 6 (5-15); BUN 38 mg/dL (7-18); BUN/Creat Ratio 21.5 RATIO (10-20); Calcium,Total 9.2 mg/dL (8.5-10.1); Chloride 100 mmol/L (98-107); Creatinine, Serum 1.77 mg/dL (0.55-1.02); EST Glomerular Filtration Rate 30 mL/min (>60); Est Glom Filt Rate - Afr Amer 36 mL/min (>60); Glucose 182 mg/dL (74-106); Potassium 4.4 mmol/L (3.5-5.1); Protein, Total 7.6 g/dL (6.4-8.2); Sodium Level 138 mmol/L (136-145)
== END | disposition home or self-care (01) ==
LOC: POLAB3 11:45
PROVIDERS: PCP Family Medicine Geriatric Medicine; Visit Provider Family Medicine Geriatric Medicine
DX: E11.65 Type 2 diabetes mellitus with hyperglycemia (principal); E55.9 Vitamin D deficiency, unspecified; R53.83 Other fatigue
CPT/HCPCS: 36415; 80053; 82306; 84443; 85025

== ENCOUNTER → 2024-10-03 | Outpatient (CLI) | payer MEDICARE, BC, SELFPAY | END | disposition home or self-care (01) | LOC: BIRAD 11:41 | PROVIDERS: PCP Family Medicine Geriatric Medicine; Referring Provider Surgery; Visit Provider Surgery | DX: R92.0 Mammographic microcalcification found on diagnostic imaging of breast (principal) | CPT/HCPCS: 19100; 19081; 19082; 88305; J7050; A4648 ==

== ENCOUNTER 2024-10-10 11:57 | Outpatient (CLI) | payer MEDICARE, BC, SELFPAY ==
[2024-10-10] MEDS: 0.9% Normal Saline (1000mL) 1,000 ML 1000 ML IV (12:13)
[2024-10-10 12:14] VITALS: BP 105/49; PULSE 73; RESP 16; TEMP 35.9; O2SAT 97; BMI 27.1
[2024-10-10 12:21] LABS: Absolute Lymphocyte Count 2.11 X10^3/uL (0.83-4.51); Absolute Neutrophil Count 5.4 X10^3/uL (2.0-7.7); Basophil# 0.03 X10^3/uL; Basophil% 0.4 % (0-1); Eosinophil# 0.15 X10^3/uL; Eosinophils% 1.8 % (0-5); Hematocrit 35.5 % (37-47); Hemoglobin 11.4 g/dL (12.0-15.0); Lymphocyte # 2.11 X10^3/ul (0.83-4.51); Lymphocyte % 25.6 % (19-41); Mean Corp Hgb Conc 32.1 g/dL (32-36); Mean Corpuscular Hgb 29.4 pg (27.0-32.0); Mean Corpuscular Volume 91.5 fL (81-99); Mean Platelet Vol. 11.2 fl (6.2-12.0); Monocyte# 0.48 X10^3/uL; Monocyte% 5.8 % (0-10); NRBC Flagged by Analyzer 0 % (0-5); Neutrophil # 5.44 X10^3/uL (2.7-7.7); Neutrophil % 66.2 % (47-70); Platelet Count 224 K/mm3 (150-450); RBC Distribution Width CV 14.2 % (11.6-14.6); RBC Distribution Width SD 47.5 fl (35.1-43.9); Red Blood Count 3.88 M/mm3 (4.2-5.4); White Blood Count 8.2 K/mm3 (4.4-11.0)
[2024-10-10 13:08] LABS: Anion Gap 5 (5-15); BUN 39 mg/dL (7-18); BUN/Creat Ratio 23.6 RATIO (10-20); Calcium,Total 9.2 mg/dL (8.5-10.1); Chloride 99 mmol/L (98-107); Creatinine, Serum 1.65 mg/dL (0.55-1.02); EST Glomerular Filtration Rate 33 mL/min (>60); Est Glom Filt Rate - Afr Amer 39 mL/min (>60); Estimated Creatinine Clearance 27.06 ml/min; Glucose 212 mg/dL (74-106); Potassium 4.2 mmol/L (3.5-5.1); Sodium Level 136 mmol/L (136-145)
[2024-10-10 13:25] VITALS: BP 131/51; PULSE 71; RESP 16; TEMP 36.2; O2SAT 100
== END 2024-10-10 23:59 | disposition home or self-care (01) ==
PROVIDERS: PCP Family Medicine Geriatric Medicine; Referring Provider Family Medicine Geriatric Medicine; Visit Provider Family Medicine Geriatric Medicine
DX: E86.0 Dehydration (principal); I95.9 Hypotension, unspecified
CPT/HCPCS: 96360; 36415; 80048; 85025; J7030

== ENCOUNTER → 2024-10-22 | Outpatient (CLI) | payer MEDICARE, BC, SELFPAY | END | disposition home or self-care (01) | LOC: POLAB3 14:26 | PROVIDERS: PCP Family Medicine Geriatric Medicine; Visit Provider Family Medicine Geriatric Medicine | DX: R68.83 Chills (without fever) (principal); E03.9 Hypothyroidism, unspecified | CPT/HCPCS: 36415; 84443; 87631 ==

== ENCOUNTER 2024-11-02 10:51 | Day surgery (SDC) | payer MEDICARE, BC, SELFPAY ==
[2024-11-02] VITALS (10 sets, daily range): BP systolic 94–141; BP diastolic 49–63; PULSE 62–79; RESP 12–16; TEMP 36–37.2; O2SAT 88–100; BMI 29.1
--- NOTE | 2024-11-02 11:15 | BI_ITS ---
SURGICAL BREAST SPECIMEN RADIOGRAPH CLINICAL: Document presence of tissue clip marker in biopsy specimen. FINDINGS: Specimen shows presence of tissue clip marker. Electronically Signed: Lee Montenegro MD at 8:12 EST , BI/Breast Biopsy Specimen IMPRESSION: undefined
--- NOTE | 2024-11-02 11:30 | HP.PCM_ITS ---
History and Physical Date of Admission: 11/02/24 Date of Service: 09/20/24 MR#: [id number] Acct: [id number] Name: LA DORMAN Rep #: [id number] Provider: Dr. Kapil Murray MD Age/Sex: 69/F Location: [facility] Status: Signed Intake Vital Signs 09/12/2410:09 09/20/2413:24 Height 5 ft 1 in 5 ft 1 in Weight: 153 lb 145 lb BMI 28.9 27.3 BP 108/65 88/55 L Blood Pressure Location Lt brachial Lt brachial Position Sitting Sitting Respiration 18 Pulse 81 77 Pulse Source Monitor Monitor Temp 97.3 F L Temp Source Temporal Pulse Oximetry (%) 96 96 Oxygen Delivery Method room air room air Intake Visit Reasons: BIRADS 4 - MAMMO ONLY/CALCIFICATIONS Chief Complaint: BIRADS 4- MAMMO ONLY/CALCIFICATIONS Accompanied by: Is patient in pain?: No Allergies adhesive tape Adverse Reaction (Intermediate, Verified 09/20/24 13:25) Rashcodeine Adverse Reaction (Intermediate, Verified 09/20/24 13:25) Dizziness Medications ?Medication ?Instructions ?Recorded ?Confirmed ?Type atorvastatin 40 mg tablet 40 mg PO QHS Cholesterol 01/06/20 09/20/24 History pantoprazole 40 mg tablet,delayed 40 mg PO DAILY Gerd 09/10/20 09/20/24 History release furosemide 40 mg tablet 40 mg PO DAILY FLUID 07/16/22 09/20/24 History ferrous fumarate-vit C-vit B12 1 gummy PO/SL DAILY SUPPLEMENT 01/25/23 09/20/24 History mifepristone 300 mg tablet (Korlym) 600 mg PO DAILY 03/07/23 09/20/24 History cholecalciferol (vitamin D3) 10 20 mcg PO DAILY 08/19/23 09/20/24 History mcg (400 unit) tablet levothyroxine 75 mcg capsule 75 mcg PO DAILY 08/19/23 09/20/24 History insulin degludec 100 unit/mL (3 30 unit subcut QHS 11/30/23 09/20/24 History mL) subcutaneous pen (Tresiba FlexTouch U-100 insulin) potassium chloride 20 mEq 40 meq PO DAILY SUPPLEMENT 06/06/24 09/20/24 History tablet,extended release(part/cryst) buspirone 15 mg tablet 15 mg PO BID 08/29/24 09/20/24 History mirtazapine 15 mg tablet 15 mg PO QHS 08/29/24 09/20/24 History olanzapine 20 mg tablet 20 mg PO QHS 08/29/24 09/20/24 History insulin aspart U-100 100 unit/mL 15 unit (0.15 mL) subcut TID #40.5 09/12/24 09/20/24 Rx (3 mL) subcutaneous pen (Novolog mL FlexPen U-100 Insulin aspart) Have you fallen in the past year?: No PFS Medical History (Updated 09/21/24 @ 12:[address] Kapil Murray MD) Abnormal mammogram Schizophrenia History of chronic kidney disease History of diabetes mellitus Diabetes mellitus type 2 in obese BALDO (acute kidney injury) Gastroesophageal reflux disease Hyperlipidemia Morbid obesity Depression Chronic kidney disease, stage 3a Diabetes mellitus Edema Laura syndrome Debility Obstructive sleep apnea on CPAP Anemia of chronic renal failure, stage 3 (moderate) BMI 37.0-37.9, adult Iron deficiency anemia due to chronic blood loss Obstructive sleep apnea syndrome Nonhealing nonsurgical wound with fat layer exposed Wound of skin Osteopenia Chronic renal disease, stage 3, moderately decreased glomerular filtration rate (GFR) between 30-59 mL/min/1.73 square meter Anemia Anemia Major depressive disorder, recurrent episode Malaise and fatigue Hyperlipidemia associated with type 2 diabetes mellitus Vision problems Pancreatitis Diabetes type 2, controlled Cataracts, bilateral Bone fracture Back problem Surgical History S/P hemodialysis catheter insertion Hx of cataract surgery S/P partial hysterectomy Hx of appendectomy Hx of cholecystectomy Status post ORIF of fracture of ankle Family History Mother DiabetesFather Heart disease Hypertension Social History household members: spouse Smoking Status: Never smoker second hand exposure: No alcohol intake: never substance use type: does not use salas/pentecostalism: Temple seatbelt use: always do you feel safe at home: Yes HPI HPI HPI: Patient is a 69-year-old female who presents for mammographic finding of a left breast cluster of microcalcifications. They are referred from Dr. Morel. Based on mammographic imaging criteria this was given a BI-RADS 4. Patient and her acknowledge that she is had calcifications noted on prior breast screening and that she has overall been faithful with this screening?noting an exception last year as she fell ill with C. difficile (times multiple recurrence s) and missed her screening in 2022. Patient has no prior history of breast pathology. As such, she has no history of prior breast biopsy. She underwent menarche in her late teens. She has had 4 pregnancies and 4 live births. Breast-feeding was not used. Patient has no first-degree relatives with breast cancer. There is no tenderness with the present finding. There is no nipple discharge associated with this finding. The patient has history of hormone replacement therapy. There is no history of trauma/infection to the affected breast. Patient makes no use of blood thinners. Patient has a history of diabetes mellitus with A1c of 8.5. Her alarm is currently sounding for high blood sugar and her confesses that this has been going more frequently but he is concerned about her bottoming out so he is not given her additional insulin. It is later noted in the course of our consult visit that patient is known to me from prior encounter for acute renal failure and insertion of a hemodialysis catheter (and its extraction) March 2022. ROS General General: Yes weight change and fatigue; No appetite, colon cancer, breast cancer or weakness HEENT HEENT: Yes eye surgery; No difficulty swallowing, eye injury, swollen glands or hoarseness Endo Endocrine: Yes thyroid disease and diabetes mellitus; No thyroid cancer, Hair loss, heat intolerance or cold intolerance Skin Skin: No rash or changing moles Breast Breast: Yes abnormal mammogram; No left breast lump, right breast lump, nipple discharge, breast pain, abnormal US or breast enlargement Musc Musculoskeletal: No back problems, arthritis, rheumatoid arthritis, gout or joint pain Cardio Cardiovascular: No murmur, pacemaker, heart disease, atrial fibrillation, high blood pressure, heart attack, heart stent, palpitations, shortness of breat with exertion or chest pain Psych Psychiatric: No depression, anxiety or hearing voices Resp Respiratory: No shortness of breath, Yes sleep apnea, No cough, No COPD, No asthma, No emphysema and No wheezing Gastro Gastrointestinal: No abdominal pain, No nausea or vomiting, Yes diarrhea, No constipation, No blood in stool, No acid reflux, No hemorrhoids, No ulcers, No gallbladder problem and No black,tarry stools Abdoulaye Hematologic: No blood thinners, No blood disorders, No bleeding, No anemia and No blood clots Neuro Neurologic: No numbness, No tingling and No weakness Exam Const General: cooperative, disheveled and frail appearing Chest Breast Palpation: Yes no axillary lymphadenopathy Other: In the right breast there is lobular architecture at the 10 o'clock position 6 cm from the nipple. This is nontender to palpation In the left breast there is a 4 cm area that is semimobile and firm in texture located at the 3 o'clock position 4 cm from the nipple. This is also nontender to palpation. Patient noted to have active yeast infection of the inframammary creases. Assessment and Plan Assessment and Plan (1) Abnormal mammogram: Status: Acute Comment: Patient is a 69-year-old female who presents for consultation related to positive screening mammography of the left breast. She is noted to have some microcalcifications that radiology deems concerning enough for closer investigation via biopsy. Per history, patient is at no significant increased risk for breast cancer. In fact, her Jeri model for breast cancer estimates her 5-year breast cancer risk at 1.4%. I discussed with patient and her that since this is an x-ray finding that we cannot easily palpate or identify with ultrasound we will need to proceed with a stereotactic?guided core needle biopsy of this area. Procedure was described in detail as well as the aims of the procedure. Patient and her were receptive of this information. I also advised them to try to getting tighter control of her blood sugars as I would be concerned for her risk for postprocedural infection with her active yeast infection (which they confirm is being treated with nystatin powder) and her hyperglycemia. Plan: Stereotactic?guided core needle biopsy of left breast I have examined the patient the following changes are noted: Patient underwent biopsy as recommended on 10/03/2024. 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 Based on this pathologic result I recommended that we proceed now for excisional breast biopsy but will once again require stereotactic localization (with wire placement) to identify the areas of concern. Patient presents today for this procedure. Her provides most of the history. He shares they both contracted COVID in the interim since our last visit but are now fully recovered and have had no lingering effects. They also confirmed that Mrs. Dorman's blood sugars have been in better control. Overview of the procedure was provided and neither patient nor her of any of their questions. Will now plan to proceed to mammography for stereotactic localization prior to excisional biopsy.
--- NOTE | 2024-11-02 11:49 | PCM.PRE.AN2 ---
ASA Classification* ASA Classification ASA Classification: 3 Assessment & Plan Anesthesia* Anesthesia Assessment Anesthesia Assessment: Discussed sedation and/or anesthesia options, risks, benefits, and alternatives with patient/parents/legal guardian/POA. Questions invited. The patient/parents/legal guardian/POA seems to understand and agrees to proceed with anesthesia plan. Reviewed the physical assessment, medical history, allergy history and patient home medications list prior to surgery/procedure/anesthetic and documented any changes. Performed airway and anesthesia risk assessments. Anesthesia Type Anesthesia Type: General Anesthesia Focused Assessment* Temperature: 99 F Pulse Rate: 69 Blood Pressure: 106/57 Respiratory Rate: 16 Pulse Ox: 96 Airway Assessment Mouth opens: >3 cm Mallampati Score: II Focused Labs Anesthesia Preop lab: CBC WBC 8.2 K/mm3 (4.4-11.0) 10/10/24 11:59 RBC 3.88 M/mm3 (4.2-5.4) L 10/10/24 11:59 Hgb 11.4 g/dL (12.0-15.0) L 10/10/24 11:59 Hct 35.5 % (37-47) L 10/10/24 11:59 Plt Count 224 K/mm3 (150-450) 10/10/24 11:59 CHEMISTRY Potassium 4.2 mmol/L (3.5-5.1) 10/10/24 11:59 Sodium 136 mmol/L (136-145) 10/10/24 11:59 Magnesium 1.9 mg/dL (1.6-2.6) 11/01/22 04:34 Phosphorus 2.7 mg/dL (2.5-4.9) 06/06/24 11:03 BUN 39 mg/dL (7-18) H 10/10/24 11:59 Creatinine 1.65 mg/dL (0.55-1.02) H 10/10/24 11:59 Glucose 212 mg/dL (74-106) H 10/10/24 11:59 POC Glucose 124 mg/dL (74-106) H 12/01/23 06:50 TSH 2.660 uIU/mL (0.358-3.740) 10/22/24 14:26 COAG PT 13.5 SECONDS (11.7-14.9) 04/03/22 06:12 Pre-Assessment Diagnosis/Proposed Procedure Planned Operative Procedure(s): (L) Excision, Stereo wire localization Left Breast Mass or Biopsy x 2 Anesthesia History Anesthesia History - green material value added assessor: Anesthesia History - green material value added assessor Hx Hospitalization Yes: 11/2023 FOR MENTAL 10/23/24 08:47 HEALTH Any Problems With Anesthesia No 10/23/24 08:47 Cholinesterase deficiency No 10/23/24 08:47 You/Your Family Experience No 10/23/24 08:47 fever (hyperthermia) with Relationship Recent Exposure to Contagious No 11/02/24 11:33 Disease Does patient have nerve No 10/23/24 08:47 stimulator Patient instructed to have device shut off --Does patient have Pacemaker No 11/02/24 11:33 or ICD? When Was Last Pacemaker Check QUESTION #4 FULL TEXT: You/Your Family Experience fever (hyperthermia) with Anesthesia Last Oral Intake Last Oral intake: Last Oral Intake NPO since 10:00 11/02/24 11:33 Meds taken in AM with sips of Yes 11/02/24 11:33 water? Meds patient instructed to take am of surgery PONV PONV - green material value added assessor: PONV - green material value added assessor Female Yes 10/23/24 08:47 HX of Motion Sickness No 10/23/24 08:47 HX of N/V After Surgery No 10/23/24 08:47 Non-Smoker Yes 10/23/24 08:47 Duration of Surgery greater No 10/23/24 08:47 than 60 minutes Number of Risk Factors 2 10/23/24 08:47 PONV Score Moderate Risk 10/23/24 08:47 Height & Weight Height & Weight: Anesthesia: Height & Weight Height 5 ft 1 in 11/02/24 11:33 Weight: 69.9 kg 11/02/24 11:33 Body Mass Index (BMI) 29.1 11/02/24 11:33 Respiratory Assessment Respiratory Assessment - green material value added assessor: Respiratory Tract Infection Hx - green material value added assessor Hx Respiratory Tract Infection Yes: CURRENTLY HAS COVID 10/23/24 08:47 STOP Sleep Apnea STOP Sleep Apnea - green material value added assessor: STOP Sleep Apnea - green material value added assessor Hx Hypertension No 10/23/24 08:47 Hx Sleep Apnea Yes 10/23/24 08:47 CPAP Yes: doesnt wear- full face 10/23/24 08:47 BIPAP No 10/23/24 08:47 Do you snore loudly (louder than talking or can be heard Do you often feel tired/ fatigued/ sleepy during daytime? Has anyone observed you stop breathing during sleep? STOP Results Positive 10/23/24 08:47 QUESTION #5 FULL TEXT : Do you snore loudly (louder than talking or can be heard through closed doors)? Tobacco Use History Tobacco Use History - green material value added assessor: Tobacco Use History - green material value added assessor Tobacco Use Smoking Status Never smoker 10/23/24 08:47 Hx Tobacco Use No 10/23/24 08:47 Years Smoking Packs Smoked per Day Smoking Cessation Date was within the last 15 years Hx Smoking Cessation Date Hx Smoking Cessation Counseling Hematologic Medial History Hematologic Hx - green material value added assessor: Hematologic Medical Hx - pot runner Hx of Blood Transfusion Yes 10/23/24 08:47 Hx of Transfusion in last 3 No 10/23/24 08:47 Months Date of Last Transfusion (if within last 3 months) Ever experience any problems No 10/23/24 08:47 with transfusion(s)? Specify any problems Hx of Preganancy in last 3 N/A 10/23/24 08:47 Months Nurse Filling Out Transfusion NBUCHER 10/23/24 08:47 & Questions: Date: 10/23/24 10/23/24 08:47 Time: 08:52 10/23/24 08:47 Patient unable to answer at this time (ie. confused, unrespo /Reproduction History /Reproductive History - green material value added assessor: /Reproductive Hx- green material value added assessor Hx Now Gestational Age (in weeks): EDC: Hx Hx Para Hx Section SAB No 10/23/24 08:47 Active Medications Active Medications: Current Medications Generic Name Dose Route Start Last Admin Trade Name Freq PRN Reason Stop Dose Admin Cefazolin Sodium 2 gm/ N/A 20 mls @ 400 mls/hr 11/02/24 12:30 IV 11/02/24 12:32 PREOP ONE PFSH Medical History Thyroid disease Uses wheelchair Walker as ambulation aid Low iron History of echocardiogram (10/28/22) History of renal disease History of renal dialysis History of acute pancreatitis Abnormal mammogram Schizophrenia History of chronic kidney disease History of diabetes mellitus Diabetes mellitus type 2 in obese BALDO (acute kidney injury) Gastroesophageal reflux disease Hyperlipidemia Morbid obesity Depression Chronic kidney disease, stage 3a Diabetes mellitus Edema [place] syndrome Debility Obstructive sleep apnea on CPAP Anemia of chronic renal failure, stage 3 (moderate) BMI 37.0-37.9, adult Iron deficiency anemia due to chronic blood loss Obstructive sleep apnea syndrome Nonhealing nonsurgical wound with fat layer exposed Wound of skin Osteopenia Chronic renal disease, stage 3, moderately decreased glomerular filtration rate (GFR) between 30-59 mL/min/1.73 square meter Anemia Anemia Major depressive disorder, recurrent episode Malaise and fatigue Hyperlipidemia associated with type 2 diabetes mellitus Vision problems Pancreatitis Diabetes type 2, controlled Cataracts, bilateral Bone fracture Back problem Home Medications ?Medication ?Instructions ?Recorded ?Last Taken ?Type atorvastatin 40 mg tablet 40 mg PO QHS Cholesterol 01/06/20 02/05/23 History pantoprazole 40 mg tablet,delayed 40 mg PO DAILY Gerd 09/10/20 11/02/24 History release furosemide 40 mg tablet 40 mg PO DAILY FLUID 07/16/22 02/05/23 History ferrous fumarate-vit C-vit B12 1 gummy PO/SL DAILY SUPPLEMENT 01/25/23 02/05/23 History cholecalciferol (vitamin D3) 10 20 mcg PO DAILY 08/19/23 Unknown History mcg (400 unit) tablet insulin degludec 100 unit/mL (3 8 unit subcut QHS 11/30/23 11/02/24 10:00 History mL) subcutaneous pen (Tresiba 4 unit FlexTouch U-100 insulin) potassium chloride 20 mEq 40 meq PO DAILY SUPPLEMENT 06/06/24 Unknown History tablet,extended release(part/cryst) buspirone 15 mg tablet 15 mg PO BID 08/29/24 Unknown History mirtazapine 15 mg tablet 15 mg PO QHS 08/29/24 Unknown History olanzapine 20 mg tablet 20 mg PO QHS 08/29/24 Unknown History insulin aspart U-100 100 unit/mL 15 unit (0.15 mL) subcut TID #40.5 09/12/24 Unknown Rx (3 mL) subcutaneous pen (Novolog mL FlexPen U-100 Insulin aspart) finerenone 10 mg tablet (Kerendia) 10 mg PO QDAY 10/10/24 Unknown History insulin lispro 100 unit/mL 1 sliding scale dose subcut TID 10/23/24 Unknown History subcutaneous pen levothyroxine 88 mcg tablet 88 mcg PO DAILY 10/23/24 11/02/24 History Allergy/AdvReac Type Severity Reaction Status Date / Time adhesive tape AdvReac Intermediate Rash Verified 10/23/24 08:40 codeine AdvReac Intermediate Dizziness Verified 10/23/24 08:40 Family History Mother Diabetes Father Heart disease Hypertension Surgical History S/P hemodialysis catheter insertion Hx of cataract surgery S/P partial hysterectomy Hx of appendectomy Hx of cholecystectomy Status post ORIF of fracture of ankle Social History household members: spouse Smoking Status: Never smoker second hand exposure: No alcohol intake: never substance use type: does not use salas/moravian: Restorationist seatbelt use: always do you feel safe at home: Yes Review of Systems (Anesthesia) ROS Narrative System reviewed and no additional complaints, except as documented.
[2024-11-02 12:10] LABS: Bedside Glucose 143 mg/dL (74-106)
--- NOTE | 2024-11-02 12:30 | BRBX_PTH ---
PATIENT: LA DORMAN LOC: [facility] – [place] U#:[id number] AGE/SX: 69/F ROOM: RE11/02/[address]: Dr. Kapil Murray MD : 1955 BED: DIS: 11/02/2024 SPEC #: [id number] RECD: 11/05/24 07:42 STATUS: SONNY MORALES #: [id number] NIKHIL: 11/02/24 12:[address]: Kapil Murray DEPT: SURGICAL PATHOLOGY RECD BY: Adithya Castaneda ENTERED: 11/05/24 07:44 SP TYPE: BREAST BX OTHR DR: Dr. Crow Morel MD Tissues: A - Left breast, NOS B - Left breast, NOS Procedures: Surgery Specimen Level IV HEADER OPERATION: Excision, stereo wire localization left breast mass x 2 PRE-OP DIAGNOSIS: Abnormal mammogram TISSUE SUBMITTED: A- Left inferior breast lump *short - superior, long - lateral* B- Superior left breast lump *long- lateral, short-superior* MICROSCOPIC DIAGNOSIS A. Inferior left breast lump, lumpectomy: Densely collagenized stroma. Fibrocystic change. Focal intraductal hyperplasia without atypia. Banal microcalcifications. Changes of previous biopsy. No evidence of malignancy. B. Superior left breast lump, lumpectomy: Densely collagenized stroma. Fibrocystic change. Focal intraductal hyperplasia without atypia. Banal microcalcifications. Calcifications of vessel reagan. Changes of previous biopsy. No evidence of malignancy. . 11/07/2024 MICROSCOPIC DESCRIPTION Slides are reviewed. GROSS DESCRIPTION A. Received in fixative is one container labeled with the patient's name and designated Left iferior breast lump. The specimen consists of an oriented fragment of keller-yellow fibrofatty tissue containing a metallic wire and measuring 6.0 x 2.5 x 2.0cm and weighing 13gm. The specimen is inked as follows: anterior - yellow, posterior - black, superior - blue, inferior - green, medial - red and lateral - orange. Serial sections reveal a blood filled biopsy cavity in the mid portion of the specimen measuring 1.5 x 1.0 x 0.6cm. No distinct mass lesion is identified. The specimen is serially sectioned and totally submitted in eight cassettes after additional fixation. B. Received in fixative is one container labeled with the patient's name and designated Superior left breast lump. The specimen consists of an oriented fragment of keller-yellow fibrofatty tissue containing a metallic wire and measuring 9.0 x 3.5 x 2.0 and weighing 22 gm. The specimen is inked as follows: anterior - yellow, posterior - black, superior - blue, inferior - green, medial - red and lateral - orange. Serial sections reveal a blood filled biopsy cavity in the mid portion of the specimen measuring 3.5 x 1.5 x 0.5cm. The remainder of the breast parenchyma is unremarkable. No distinct mass lesion is identified. The specimen is serially sectioned and totally submitted in twelve cassettes after additional fixation. 11/05/2024 TC:5 CPT:49834y3
--- NOTE | 2024-11-02 12:30 | BRBX_PTH ---
PATIENT: LA DORMAN LOC: [facility] [place] U#:[id number] AGE/SX: 69/F ROOM: RE11/02/[address]: Dr. Kapil Murray MD : 1955 BED: DIS: 11/02/2024 SPEC #: [id number] RECD: 11/05/24 07:42 STATUS: SONNY MORALES #: [id number] NIKHIL: 11/02/24 12:[address]: Kapil Murray DEPT: SURGICAL PATHOLOGY RECD BY: Adithya Castaneda ENTERED: 11/05/24 07:44 SP TYPE: BREAST BX OTHR DR: Dr. Crow Morel MD Tissues: A - Left breast, NOS B - Left breast, NOS Procedures: Surgery Specimen Level IV HEADER OPERATION: Excision, stereo wire localization left breast mass x 2 PRE-OP DIAGNOSIS: Abnormal mammogram TISSUE SUBMITTED: A- Left inferior breast lump *short - superior, long - lateral* B- Superior left breast lump *long- lateral, short-superior* MICROSCOPIC DIAGNOSIS A. Inferior left breast lump, lumpectomy: Densely collagenized stroma. Fibrocystic change. Focal intraductal hyperplasia without atypia. Banal microcalcifications. Changes of previous biopsy. No evidence of malignancy. Also hyalinized firboadenomaa with focal calcification (Block B11). B. Superior left breast lump, lumpectomy: Densely collagenized stroma. Fibrocystic change. Focal intraductal hyperplasia without atypia. Banal microcalcifications. Calcifications of vessel reagan. Changes of previous biopsy. No evidence of malignancy. AM. 11/07/2024 COMMENT A. A calcified microfibroadenoma is also noted in block B11. MICROSCOPIC DESCRIPTION Slides are reviewed. GROSS DESCRIPTION A. Received in fixative is one container labeled with the patient's name and designated Left iferior breast lump. The specimen consists of an oriented fragment of keller-yellow fibrofatty tissue containing a metallic wire and measuring 6.0 x 2.5 x 2.0cm and weighing 13gm. The specimen is inked as follows: anterior - yellow, posterior - black, superior - blue, inferior - green, medial - red and lateral - orange. Serial sections reveal a blood filled biopsy cavity in the mid portion of the specimen measuring 1.5 x 1.0 x 0.6cm. No distinct mass lesion is identified. The specimen is serially sectioned and totally submitted in eight cassettes after additional fixation. B. Received in fixative is one container labeled with the patient's name and designated Superior left breast lump. The specimen consists of an oriented fragment of keller-yellow fibrofatty tissue containing a metallic wire and measuring 9.0 x 3.5 x 2.0 and weighing 22 gm. The specimen is inked as follows: anterior - yellow, posterior - black, superior - blue, inferior - green, medial - red and lateral - orange. Serial sections reveal a blood filled biopsy cavity in the mid portion of the specimen measuring 3.5 x 1.5 x 0.5cm. The remainder of the breast parenchyma is unremarkable. No distinct mass lesion is identified. The specimen is serially sectioned and totally submitted in twelve cassettes after additional fixation. 11/05/2024 TC:5 CPT:49684c7
--- NOTE | 2024-11-02 12:58 | BI_ITS ---
SURGICAL BREAST SPECIMEN RADIOGRAPH CLINICAL: Document presence of calcifications in biopsy specimen. FINDINGS: Specimen shows presence of calcifications. Electronically Signed: Lee Montenegro MD at 8:12 EST , BI/Breast Biopsy Specimen IMPRESSION: undefined
[2024-11-02] MEDS: Cefazolin 2 GM in Syringe IV (13:07)
--- NOTE | 2024-11-02 15:21 | PCM.OPRPT ---
Operative Report (Standard) Operative Information Date of Procedure: 11/02/24 Pre-Operative Diagnosis: Two foci of intraductal hyperplasia with atypia of the left breast Post-Operative Diagnosis: Same Surgery/Procedure Performed: Stereotactic wire localization with excisional left breast biopsy x 2 md do resident urgent care: Yes Blood Bank Specialist: Cecilia Carlson Tasks completed by assistant store manager: Opening & closing, Hemostasis: Electrocautery and Retracting Additional entry level administrative assistant?: Yes Additional Exhaust Tender #2: Freddie Oquendo Tasks completed by entry level administrative assistant #2: Retracting Type of Anesthesia: MAC/Supplemental RN Documented Start/Stop Times: Operation Date: 11/02/24 12:30 Case Time Into Pre-Op 11/02/24 10:54 Out of Pre-Op 11/02/24 12:47 Anesthesia Start 11/02/24 12:52 Into Room 11/02/24 12:52 Procedure Start 11/02/24 13:30 Procedure End 11/02/24 15:30 Anesthesia End 11/02/24 15:36 Out of Room 11/02/24 15:36 Into Recovery 11/02/24 15:40 Into Phase II Recovery 11/02/24 16:11 Out of Recovery 11/02/24 16:11 Procedure Start Time: 13:30 Procedure Stop Time: 15:30 Select all DRAINS/GRAFTS/IMPLANTS that apply: None Estimated Blood Loss: 10 Specimen collected: Yes Description of specimen(s) removed: 1. Inferior breast lumpectomy specimen 2. Superior breast lumpectomy specimen Description of surgery: After appropriate identification the patient was positioned on the mammography table and the first biopsy clip was targeted. Stereo images were then obtained of the clip and the wire was placed just medial and inferior to the biopsy clip. Wire was then clipped and the patient was repositioned so that the second biopsy clip was targeted. Once again stereo images were obtained and a second 9 [place] Kopan's wire was inserted just superficial to the biopsy clip in question. Post procedure x-rays and mammography were obtained to confirm this position. Patient was then brought to the operating room where her preoperative antibiotics were completed. She was positioned supine on the operating room table with her arms out and underwent sedation with anesthesia before an IV was placed in the left antecubital fossa. An LMA airway was placed. Patient's left breast was exposed and the localization wires were clipped additionally shorter. Then patient's left breast and axilla were then prepped and draped in usual sterile fashion. Formal timeout was conducted to confirm both patient and procedure. Local anesthetic was instilled in the appointed location for the more inferior biopsy incision. Incision was made sharply and deepened through the dermis with use of electrocautery. Using blunt dissection I then dissected under the skin flap to release the dermis from the underlying breast tissue. Gradually cutaneous flap was released medially towards the patient's localization wire. Identifying the wire, it was then pulled into our incision. The wire was then followed to its anchored position in the breast tissue taking care to obtain margins. Once I had achieved the appropriate circumferential excision and confirmed our depth, the breast tissue was amputated from the cavity. It was oriented such that the short stitch marked the superior margin and the long stitch askew the lateral margin. It was then passed off the field for mammography and pathology. Mammography confirmed that the images were in our PACS system and identified both the biopsy clip in the entirety of the wire within the specimen. This same process was repeated with a second 3 cm transverse incision over the second wire. Circumferential dissection was made but as we were deeply looking to amputate the lumpectomy specimen from the cavity I encountered some slight bleeding and I attempted to use electrocautery to stop this bleeding. Unfortunately patient's calcific vessels made this challenging and I simply looked to amputate the specimen before addressing the bleeding. In doing so I be and coming across breast tissue and found the tip of the wire directly at that point. Recognizing that I had needed to go deeper than the wire point to obtain our biopsy clip target I grasped the deeper tissue with a Allis clamp and extended my dissection deeper circumferentially before amputating the specimen. It was oriented in similar fashion; short-superior long- lateral sutures. It also was passed off the field for mammography and then ultimately to pathology. Mammography eventually notified us that this specimen to included our biopsy clip. Meanwhile each cavity was irrigated with sterile water and hemostasis was obtained with selective electrocautery as well as needing to place a single Vicryl ligature in the superior cavity with a 3-0 Vicryl suture. The posterior aspect of each cavity was marked with 3 titanium vascular clips. Each cavity was then closed in turn in layers using 3-0 Vicryl and 4-0 Monocryl. Dermabond was applied at both breast incisions. The patient was awoken from anesthetic without issue and delivered to PACU for ongoing care. Surgical Findings: ? Mildly dense breast tissue deeply around the wire tips ? Hemostatic operative cavities marked posteriorly with 3 titanium clips a piece ? Mammographic pictures confirming complete localization wires and biopsy clips at their terminal end Complications Complications: No Admit VTE Documentation VTE Mechan Device Prophylaxis: SCD's
--- NOTE | 2024-11-02 15:26 | EX.PCM.DISCH ---
Discharge Instructions Diet Discharge Diet: No restrictions Activity Discharge Activity: May Drive (No driving while using narcotic pain medication) May shower in (days): 1 Ice area for (Minutes): 20 Lifting Restrictions: Limit lifting with left upper extremity to no more than 5 pounds Dressing / Incision Call your doctor if your incision/area has: Continuous Slow Oozing, Sudden Increased Bleeding, Increased Pain/ Swelling, Increased Redness, Foul Smelling Discharge and Swelling at the incision site Call your doctor if you observe: Fever of 101 or Higher Suture Line Care: Avoid Pulling/Pushing Cleanse incision/area with: Soap & Water Follow Up Care Please Follow Up With: Kapil Murray MD When: 10 to 14 days postop Test Results: Test results from this visit will be discussed in further detail at your follow-up appointment, if applicable. Discharge Plan Admission Primary Reason for Your Visit: Excisional biopsy of left breast x 2 Attending Provider: Kapil Murray Primary Care Provider: Crow Morel Chi Instructions Print Language: American Discharge Orders/Prescriptions Prescriptions: New tramadol 50 mg tablet 50 mg PO Q6H PRN (Reason: pain) Qty: 10 0RF Continued furosemide 40 mg tablet 40 mg PO DAILY cholecalciferol (vitamin D3) 10 mcg (400 unit) tablet 20 mcg PO DAILY insulin aspart U-100 [Novolog FlexPen U-100 Insulin] 100 unit/mL (3 mL) insulin pen 15 unit subcut TID Qty: 40.5 1RF olanzapine 20 mg tablet 20 mg PO QHS mirtazapine 15 mg tablet 15 mg PO QHS buspirone 15 mg tablet 15 mg PO BID Kerendia 10 mg tablet 10 mg PO QDAY atorvastatin 40 MG tablet 40 mg PO QHS pantoprazole 40 MG tablet,delayed release (DR/EC) 40 mg PO DAILY potassium chloride 20 mEq tablet,ER particles/crystals 40 meq PO DAILY ferrous fumarate-vit C-vit B12 1 gummy PO/SL DAILY insulin degludec [Tresiba FlexTouch U-100] 100 unit/mL (3 mL) insulin pen 8 unit SUBCUT QHS Patient Comments: INJECT 30 UNITS SUBCUTANEOUSLY DAILY insulin lispro 100 unit/mL insulin pen 1 sliding scale dose subcut TID levothyroxine 88 mcg tablet 88 mcg PO DAILY Referrals / Follow Up: Crow Morel Chi, MD [Primary Care Provider] - Disposition Disposition (needs filled in before D/C Order can be placed): Home, Self Care
[2024-11-02] MEDS: Bupivacaine Mpf 0.5% 30 ML VIAL (15:27)
--- NOTE | 2024-11-02 15:44 | PCM.POST.ANE ---
Anesthesia: Postop Eval I Current Vital Signs Temperature: 97 F Pulse Rate: 63 Blood Pressure: 94/58 Respiratory Rate: 16 Pulse Ox: 99 Oxygen Delivery Method: Room Air Assessment Airway patent: Yes Spontaneous unlabored respirations: Yes Mental status: Asleep nausea: No Vomiting: No Anesthesia Complication: No Fluid Hydration Crystalloid volume administer (ml): 700 Total IV fluid infused: 700 Progress Note Anesthesia document: Postop Eval 1 completed: Yes
--- NOTE | 2024-11-02 17:54 | SUR.PHASEII ---
THIS NURSE DISCONTINUED HER LEFT WRIST IV WITHOUT DIFFICULTY.
--- NOTE | 2024-11-02 17:59 | PCM.POSTANE2 ---
Anesthesia Postop Eval I Sum Postop Eval Completion status Anesthesia document: Postop Eval 1 completed: Yes Anesthesia Postop Eval I Summary Anesthesia Postop Eval I Summary: Anesthesia Postop Eval I: Assessment Summary Airway patent Yes 11/02/24 15:44 [email or web address] Spontaneous unlabored Yes 11/02/24 15:44 [email or web address] respirations Mental status Asleep 11/02/24 15:44 [email or web address] nausea No 11/02/24 15:44 [email or web address] Vomiting No 11/02/24 15:44 [email or web address] Anesthesia Postop Eval I: Fluid Summary Crystalloid volume administer 700 11/02/24 15:44 [email or web address] (ml) Colloids volume administered ( ml) Blood Product volume administered (ml) Total IV fluid infused 700 11/02/24 15:44 [email or web address] Anesthesia Postop Eval I: Summary Notes Anesthesia Complication No 11/02/24 15:44 [email or web address] Anesthesia Complication Comment: Post-operative progress note Anesthesia: Postop Eval II Evaluation Mental status: Awake Pain Level: 0 nausea: No Vomiting: No
--- NOTE | 2024-11-03 12:36 | SUR.PHASEII ---
AT APPROXIMATELY 12:00 ON SUNDAY, NOVEMBER 03, 2024, I SPOKE ON THE PHONE WITH JORGE DORMAN, THE PATIENT'S . THE PATIENT'S POST-OP PRESCRIPTION MEDICATION WAS FOUND ON THE BEDSIDE TABLE IN 11 AFTER THE PATIENT WAS DISCHARGED AND HAD LEFT [facility] WITH HER ON 11/02/24. THE WAS ASKING HOW HE WOULD GO ABOUT PICKING UP THE MEDICATION. I TOLD HIM HE COULD DRIVE TO THE HOSPITAL AND CALL THE PACU AT [phone] AND SOMEONE WOULD BRING THE MEDICATION OUT TO HIM TODAY. HE SAID HE FELT HIS DID NOT REQUIRE THE MEDICATION AND WOULD DRIVE TO THE HOSPITAL ON 11/05/24 TO PICK IT UP. 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 THE PRESCRIPTION IS BEING STORED ON THE LOCKED MEDICATION ROOM.
== END 2024-11-02 17:55 | disposition home or self-care (01) ==
LOC: SDC 10:51 → AC 10:55
PROVIDERS: PCP Family Medicine Geriatric Medicine; Referring Provider Surgery; Visit Provider Surgery
PROC: (CPT 19101; principal; 2024-11-02 12:15)
DX: R92.8 Other abnormal and inconclusive findings on diagnostic imaging of breast (principal); E11.22 Type 2 diabetes mellitus with diabetic chronic kidney disease; N18.31 Chronic kidney disease, stage 3a; E78.5 Hyperlipidemia, unspecified; B37.9 Candidiasis, unspecified; Z79.890 Hormone replacement therapy; Z86.16 Personal history of COVID-19; I45.10 Unspecified right bundle-branch block; Z99.2 Dependence on renal dialysis; Z90.711 Acquired absence of uterus with remaining cervical stump; Z90.49 Acquired absence of other specified parts of digestive tract; E03.9 Hypothyroidism, unspecified; R92.0 Mammographic microcalcification found on diagnostic imaging of breast
CPT/HCPCS: 19101; 00400; 19281; 19282; 76098; 82962; 88305; A4648; A4216; J2405

== ENCOUNTER → 2024-12-26 | Outpatient (CLI) | payer MEDICARE, BC, SELFPAY ==
[2024-12-26 10:13] LABS: Absolute Lymphocyte Count 1.64 X10^3/uL (0.83-4.51); Absolute Neutrophil Count 2.1 X10^3/uL (2.0-7.7); Basophil# 0.02 X10^3/uL; Basophil% 0.5 % (0-1); Eosinophil# 0.12 X10^3/uL; Eosinophils% 2.9 % (0-5); Hematocrit 35.9 % (37-47); Hemoglobin 12.2 g/dL (12.0-15.0); Lymphocyte # 1.64 X10^3/ul (0.83-4.51); Lymphocyte % 39.5 % (19-41); Mean Corpuscular Hgb 30.2 pg (27.0-32.0); Mean Corpuscular Volume 88.9 fL (81-99); Monocyte# 0.29 X10^3/uL; NRBC Flagged by Analyzer 0 % (0-5); Neutrophil # 2.07 X10^3/uL (2.7-7.7); Neutrophil % 49.9 % (47-70); Platelet Count 185 K/mm3 (150-450); RBC Distribution Width CV 13.9 % (11.6-14.6); RBC Distribution Width SD 45.2 fl (35.1-43.9); Red Blood Count 4.04 M/mm3 (4.2-5.4); White Blood Count 4.2 K/mm3 (4.4-11.0)
[2024-12-26 10:49] LABS: Vitamin D,25 Hydroxy 46.8 ng/mL
[2024-12-26 11:00] LABS: ALB/GLOB Ratio 0.9 RATIO (0.9-2.4); AST(SGOT) 24 U/L (15-37); Alanine Aminotransfer ALT/SGPT 21 U/L (13-56); Albumin, Serum 3.2 g/dL (3.2-5.0); Alkaline Phosphatase 119 U/L (45-117); Anion Gap 5 (5-15); BUN 12 mg/dL (7-18); BUN/Creat Ratio 11.9 RATIO (10-20); Calcium,Total 9.4 mg/dL (8.5-10.1); Chloride 101 mmol/L (98-107); Creatinine, Serum 1.01 mg/dL (0.55-1.02); EST Glomerular Filtration Rate 57 mL/min (>60); Est Glom Filt Rate - Afr Amer 69 mL/min (>60); Globulin 3.7 g/dL (2.2-4.2); Glucose 98 mg/dL (74-106); Potassium 2.6 mmol/L (3.5-5.1); Protein, Total 6.9 g/dL (6.4-8.2); Sodium Level 144 mmol/L (136-145)
== END | disposition home or self-care (01) ==
LOC: POLAB3 10:02
PROVIDERS: PCP Family Medicine Geriatric Medicine; Visit Provider Family Medicine Geriatric Medicine
DX: E11.65 Type 2 diabetes mellitus with hyperglycemia (principal); R53.83 Other fatigue; E55.9 Vitamin D deficiency, unspecified
CPT/HCPCS: 36415; 80053; 82306; 84443; 85025

== ENCOUNTER → 2025-01-09 | Outpatient (CLI) | payer MEDICARE, BC, SELFPAY ==
[2025-01-09 14:06] LABS: Albumin, Serum 3.3 g/dL (3.2-5.0); BUN 25 mg/dL (7-18); BUN/Creat Ratio 19.8 RATIO (10-20); Calcium,Total 9.1 mg/dL (8.5-10.1); Chloride 103 mmol/L (98-107); Creatinine, Serum 1.26 mg/dL (0.55-1.02); EST Glomerular Filtration Rate 44 mL/min (>60); Est Glom Filt Rate - Afr Amer 54 mL/min (>60); Glucose 276 mg/dL (74-106); Phosphorus 2.9 mg/dL (2.5-4.9); Sodium Level 138 mmol/L (136-145)
== END | disposition home or self-care (01) ==
PROVIDERS: Internal Medicine Nephrology; PCP Family Medicine Geriatric Medicine; Referring Provider Family Medicine Geriatric Medicine; Visit Provider Family Medicine Geriatric Medicine
DX: N18.31 Chronic kidney disease, stage 3a (principal); E11.22 Type 2 diabetes mellitus with diabetic chronic kidney disease; H35.00 Unspecified background retinopathy
CPT/HCPCS: 36415; 80069; 84443

== ENCOUNTER → 2025-01-16 | Outpatient (CLI) | payer MEDICARE, BC, SELFPAY ==
[2025-01-16 11:59] LABS: Microalbumin:Creatinine Ratio 1312.4 mg/g CRE (<30 mg/g CRE)
[2025-01-16 12:27] LABS: Albumin, Serum 3.4 g/dL (3.2-5.0); BUN 18 mg/dL (7-18); BUN/Creat Ratio 17.6 RATIO (10-20); Calcium,Total 9.2 mg/dL (8.5-10.1); Chloride 108 mmol/L (98-107); Creatinine, Serum 1.02 mg/dL (0.55-1.02); EST Glomerular Filtration Rate 57 mL/min (>60); Est Glom Filt Rate - Afr Amer 69 mL/min (>60); Glucose 94 mg/dL (74-106); Phosphorus 2.6 mg/dL (2.5-4.9); Potassium 3.8 mmol/L (3.5-5.1); Sodium Level 141 mmol/L (136-145)
== END | disposition home or self-care (01) ==
LOC: LAB 10:57 → LABSPEC 10:59 → LAB 11:45
PROVIDERS: PCP Family Medicine Geriatric Medicine; Referring Provider Internal Medicine Nephrology; Visit Provider Internal Medicine Nephrology
DX: E11.22 Type 2 diabetes mellitus with diabetic chronic kidney disease (principal); E11.319 Type 2 diabetes mellitus with unspecified diabetic retinopathy without macular edema; N18.31 Chronic kidney disease, stage 3a; H35.00 Unspecified background retinopathy
CPT/HCPCS: 36415; 80069; 82043; 82570

== ENCOUNTER → 2025-01-23 | Outpatient (CLI) | payer MEDICARE, BC, SELFPAY | END | disposition home or self-care (01) | LOC: POLAB3 16:59 | PROVIDERS: PCP Family Medicine Geriatric Medicine; Visit Provider Family Medicine Geriatric Medicine | DX: E03.9 Hypothyroidism, unspecified (principal); R68.83 Chills (without fever) | CPT/HCPCS: 87631 ==

== ENCOUNTER → 2025-03-20 | Outpatient (CLI) | payer MEDICARE, BC, SELFPAY ==
[2025-03-20 11:16] LABS: Absolute Lymphocyte Count 1.75 X10^3/uL (0.83-4.51); Absolute Neutrophil Count 4.2 X10^3/uL (2.0-7.7); Basophil# 0.03 X10^3/uL; Basophil% 0.4 % (0-1); Eosinophil# 0.18 X10^3/uL; Eosinophils% 2.7 % (0-5); Hematocrit 33.3 % (37-47); Hemoglobin 11.1 g/dL (12.0-15.0); Lymphocyte # 1.75 X10^3/ul (0.83-4.51); Lymphocyte % 26.2 % (19-41); Mean Corp Hgb Conc 33.3 g/dL (32-36); Mean Corpuscular Hgb 30.1 pg (27.0-32.0); Mean Corpuscular Volume 90.2 fL (81-99); Mean Platelet Vol. 10.5 fl (6.2-12.0); Monocyte# 0.46 X10^3/uL; Monocyte% 6.9 % (0-10); NRBC Flagged by Analyzer 0 % (0-5); Neutrophil # 4.24 X10^3/uL (2.7-7.7); Neutrophil % 63.7 % (47-70); Platelet Count 217 K/mm3 (150-450); RBC Distribution Width SD 49.2 fl (35.1-43.9); Red Blood Count 3.69 M/mm3 (4.2-5.4); White Blood Count 6.7 K/mm3 (4.4-11.0)
[2025-03-20 12:04] LABS: ALB/GLOB Ratio 1.4 RATIO (0.9-2.4); AST(SGOT) 22 U/L (<=31); Alanine Aminotransfer ALT/SGPT 12 U/L (<=34); Albumin, Serum 3.7 g/dL (3.4-4.8); Alkaline Phosphatase 118 U/L (35-104); Anion Gap 9 (5-15); BUN 16 mg/dL (4-19); BUN/Creat Ratio 17.5 RATIO (10-20); Calcium,Total 9.1 mg/dL (7.6-11.0); Carbon Dioxide 29.2 mmol/L (21.0-32.0); Chloride 101 mmol/L (98-108); Creatinine, Serum 0.93 mg/dL (0.70-1.20); EST Glomerular Filtration Rate 65 (>60); Globulin 2.7 g/dL (2.2-4.2); Glucose 95 mg/dL (70-99); Potassium 3.9 mmol/L (3.3-5.1); Protein, Total 6.4 g/dL (5.9-8.4); Sodium Level 139 mmol/L (133-145); Total Bilirubin 0.56 mg/dL (0.00-1.30)
[2025-03-20 20:21] LABS: Vitamin D,25 Hydroxy 33.1 ng/mL (30-100)
== END | disposition home or self-care (01) ==
LOC: LAB 10:40
PROVIDERS: PCP Family Medicine Geriatric Medicine; Referring Provider Family Medicine Geriatric Medicine; Visit Provider Family Medicine Geriatric Medicine
DX: E55.9 Vitamin D deficiency, unspecified (principal); E11.65 Type 2 diabetes mellitus with hyperglycemia; R53.83 Other fatigue
CPT/HCPCS: 36415; 80053; 82306; 84443; 85025

== ENCOUNTER 2025-04-24 13:57 | Inpatient (IN) | payer MEDICARE, BC, SELFPAY ==
[2025-04-24] VITALS (8 sets, daily range): BP systolic 99–140; BP diastolic 53–87; PULSE 70–99; RESP 15–18; TEMP 36.6–37.2; O2SAT 94–99; BMI 27.6; BMI 26.8
--- NOTE | 2025-04-24 15:20 | RAD_ITS ---
EXAM: XR Chest, 1 View CLINICAL INDICATION: PREOP TECHNIQUE: Frontal view of the chest. COMPARISON: No relevant prior studies available. FINDINGS: LUNGS AND PLEURAL SPACES: Unremarkable. No consolidation. No pneumothorax. HEART: Cardiomegaly without overt failure. MEDIASTINUM: Unremarkable. Normal mediastinal contour. BONES/JOINTS: Unremarkable. No acute fracture. RAD/Chest 1 View IMPRESSION: Cardiomegaly without overt failure. Reading [facility]
--- NOTE | 2025-04-24 15:20 | RAD_ITS ---
EXAM: XR Right Ankle, 2 Views CLINICAL INDICATION: INJURY/PAIN TECHNIQUE: Frontal and lateral views of the right ankle. COMPARISON: No relevant prior studies available. FINDINGS: BONES/JOINTS: [id number] degenerative changes of the ankle joints. Probable healed fracture deformity of the distal fibula. No dislocation. SOFT TISSUES: Soft tissue swelling. RAD/Ankle 2 Views IMPRESSION: 1. Soft tissue swelling. 2. Degenerative changes as above. Reading Location[facility]
--- NOTE | 2025-04-24 15:20 | RAD_ITS ---
EXAM: XR Pelvis Complete, 3 or More Views CLINICAL INDICATION: INJURY/PAIN TECHNIQUE: Frontal and lateral or oblique views of the pelvis. COMPARISON: No relevant prior studies available. FINDINGS: BONES/JOINTS: Comminuted mildly displaced fracture of the right femoral neck. No dislocation. SOFT TISSUES: Soft tissue swelling. RAD/HIP, UNI W/ Pelvis 2-3 Views IMPRESSION: Comminuted mildly displaced fracture of the right femoral neck. Reading [facility]
--- NOTE | 2025-04-24 15:20 | RAD_ITS ---
EXAM: XR Right Knee, 1 or 2 Views CLINICAL INDICATION: INJURY/PAIN TECHNIQUE: Frontal and/or lateral views of the right knee. COMPARISON: No relevant prior studies available. FINDINGS: BONES/JOINTS: Moderate tricompartmental degenerative change of the knee joint. No acute fracture. No dislocation. SOFT TISSUES: Unremarkable. RAD/Knee 1 or 2 Views IMPRESSION: Degenerative changes as above. Reading [facility]
--- NOTE | 2025-04-24 15:22 | EKG12_ITS ---
Test Reason : FALL Blood Pressure : */* mmHG Vent. Rate : 73 BPM Atrial Rate : 73 BPM P-R Int : 206 ms QRS Dur : 128 ms QT Int : 418 ms P-R-T Axes : 45 -44 6 degrees QTcB Int : 460 ms Normal sinus rhythm Left axis deviation Right bundle branch block Minimal voltage criteria for LVH, may be normal variant ( R in aVL ) Abnormal ECG Confirmed by VISHAL FLORES ([id number]), photograph editor DEMI MARTINEZ ([id number]) on 04/29/2025 7:29:40 AM Referred By: Confirmed By: VISHAL FLORES
--- NOTE | 2025-04-24 15:24 | EX.ED.GENINJ ---
HPI History of Present Illness Chief Complaint: Fall Detail of Chief Complaint: Fall with complaint of right ankle, knee and hip pain Informant: patient and spouse/S.O. Onset/Context/Timing Onset: Today and Hours Mechanism/Context: Blunt Injury and Fall Location of pain/injuries: Right hip, Right Knee and Right ankle Current Severity: Mild Maximum Severity: Moderate Worsened by: Logrolling of her leg causes knee pain. Palpation of her ankle elicits mague Relieved by: Remaining still Associated Symptoms Associated Symptoms: Positive for Loss of function; Negative for Loss of consciousness or Amnesia Narrative Narrative: Patient is 69-year-old woman. She was going down an incline and fell forward. She complains of right ankle, right knee and right hip pain. She was unable to get up off the ground. Her had to pick her up. Her brought her here. She needed significant assistance to transfer from wheelchair to cot. Patient and states she did not hit her head. She is not on anticoagulant. She is not amnestic. She denies headache. She denies double vision blurred vision loss of vision. Eyes regulars decreased hearing. She denies neck pain. She denies upper extremity pain. She denies pain in her left lower extremity. She denies chest pain, shortness of breath or difficulty breathing. She denies abdominal pain. 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 Thyroid disease Uses wheelchair Walker as ambulation aid Low iron History of echocardiogram (10/28/22) History of renal disease History of renal dialysis History of acute pancreatitis Abnormal mammogram Schizophrenia History of chronic kidney disease History of diabetes mellitus Diabetes mellitus type 2 in obese BALDO (acute kidney injury) Gastroesophageal reflux disease Hyperlipidemia Morbid obesity Depression Chronic kidney disease, stage 3a Diabetes mellitus Edema Laura syndrome Debility Obstructive sleep apnea on CPAP Anemia of chronic renal failure, stage 3 (moderate) BMI 37.0-37.9, adult Iron deficiency anemia due to chronic blood loss Obstructive sleep apnea syndrome Nonhealing nonsurgical wound with fat layer exposed Wound of skin Osteopenia Chronic renal disease, stage 3, moderately decreased glomerular filtration rate (GFR) between 30-59 mL/min/1.73 square meter Anemia Anemia Major depressive disorder, recurrent episode Malaise and fatigue Hyperlipidemia associated with type 2 diabetes mellitus Vision problems Pancreatitis Diabetes type 2, controlled Cataracts, bilateral Bone fracture Back problem Home Medications ?Medication ?Instructions ?Recorded ?Last Taken ?Type atorvastatin 40 mg tablet 40 mg PO QHS Cholesterol 01/06/20 02/05/23 History ferrous fumarate-vit C-vit B12 1 gummy PO/SL DAILY SUPPLEMENT 01/25/23 02/05/23 History cholecalciferol (vitamin D3) 10 20 mcg PO DAILY vitamin 08/19/23 Unknown History mcg (400 unit) tablet insulin degludec 100 unit/mL (3 8 unit subcut QHS diabtetes 11/30/23 11/02/24 10:00 History mL) subcutaneous pen (Tresiba 4 unit FlexTouch U-100 insulin) potassium chloride 20 mEq 40 meq PO DAILY SUPPLEMENT 06/06/24 Unknown History tablet,extended release(part/cryst) buspirone 15 mg tablet 15 mg PO BID mood stabilizer 08/29/24 Unknown History mirtazapine 15 mg tablet 15 mg PO QHS antidepressant 08/29/24 Unknown History olanzapine 20 mg tablet 20 mg PO QHS 08/29/24 Unknown History insulin aspart U-100 100 unit/mL 15 unit (0.15 mL) subcut TID 09/12/24 Unknown Rx (3 mL) subcutaneous pen (Novolog diabetes #40.5 mL FlexPen U-100 Insulin aspart) insulin lispro 100 unit/mL 1 sliding scale dose subcut TID 10/23/24 Unknown History subcutaneous pen high sugar levothyroxine 88 mcg tablet 88 mcg PO DAILY thyriod 10/23/24 11/02/24 History lamotrigine 25 mg tablet 50 mg (2 x 25 mg) PO QDAY seizures 01/30/25 Unknown Rx 30 days #180 tabs Allergy/AdvReac Type Severity Reaction Status Date / Time adhesive tape AdvReac Intermediate Rash Verified 04/24/25 13:58 codeine AdvReac Intermediate Dizziness Verified 04/24/25 13:58 Family History Mother Diabetes Father Heart disease Hypertension Surgical History History of breast lump/mass excision S/P hemodialysis catheter insertion Hx of cataract surgery S/P partial hysterectomy Hx of appendectomy Hx of cholecystectomy Status post ORIF of fracture of ankle Social History household members: spouse Smoking Status: Never smoker second hand exposure: No alcohol intake: never substance use type: does not use salas/nondenominational: [employer] seatbelt use: always do you feel safe at home: Yes ROS ROS ED Constitutional Constitutional ED: Denies chills, fever(s), subjective or sweats Eyes Eyes: Denies blurry vision or change in vision ENT ENT ED: Denies rhinorrhea or sore throat Cardiovascular Cardiovascular: Denies chest pain or palpitations Respiratory/Chest Respiratory/Chest: Denies cough, dyspnea or dyspnea on exertion Gastrointestinal Gastrointestinal: Denies abdominal pain, nausea or vomiting Musculoskeletal Musculoskeletal: Reports other Details: Per HPI negative ; Denies arthralgias, back pain, myalgias or neck pain Integumentary Denies rash Neurologic Neurologic: Denies headache(s) or paresthesias Endocrine Endocrinology: Denies cold intolerance or heat intolerance Hematologic/Lymphatic Hematologic/Lymphatic: Denies easy bleeding or easy bruising EXAM Physical Exam Const Vital Signs: 04/24/25 13:57 04/24/25 14:05 04/24/25 15:00 Temperature 98.9 F 98 F Temperature Source Oral Pulse Rate 70 81 Respiratory Rate 16 16 Respiratory Effort Normal Non-Labored Respiratory Depth Normal Respiratory Pattern Normal Blood Pressure 99/67 128/78 H Blood Pressure Mean 77 94 Pulse Ox 99 98 98 Oxygen Delivery Method Room Air Room Air 04/24/25 15:57 Temperature Temperature Source Pulse Rate 87 Respiratory Rate 18 Respiratory Effort Respiratory Depth Respiratory Pattern Blood Pressure 140/87 H Blood Pressure Mean 104 Pulse Ox 98 Oxygen Delivery Method Positive well nourished and well developed Constitutional Narrative: Vital signs reveal slightly low blood pressure. She is not tachycardic. General Appearance ED: well developed HEENT Reports TM's clear HEENT Narrative: There is no clinical signs of basilar skull fracture or head trauma. Head is normocephalic. atraumatic Nose: Negative for septum abnormal Tympanic Membrane ED: Yes TM's clear Eyes PERRL and EOMs intact bilaterally Neck full ROM General: Negative for tenderness Chest Wall inspection of chest normal and palpation of chest normal Resp normal respiratory effort and clear to auscultation bilaterally Cardio regular rhythm, S1 normal heart sound, S2 normal heart sound and no murmurs Rate: regular rate GI normal to inspection, nondistended, normoactive bowel sounds, non-tender, non-distended and no masses GI Narrative: There is noted pain to palpation over the right or left ischial tuberosity, right or left iliac wing or pubic symphysis. Back/Spine normal to inspection and no thoracic nor lumbar tenderness Extremity Extremity Narrative: Right lower extremity may be slightly shortened. Is not externally rotated. There is pain ovation over the medial malleolus. There is no laxity with anterior drawer testing. There is no pain to palpation of the base of fifth metatarsal. DP pulses palpable. Patient has no pain ovation over the patella. The patella is not ballotable. There is no effusion. Varus valgus stress testing causes discomfort but there is no laxity. Unable to perform a modified Ari's test because patient complained of pain with movement of her leg. She is unable to lift her leg up off the bed. Logrolling causes discomfort in her knee. Neuro oriented x3 and CN's II-XII intact bilaterally Souleymane Coma Scale: document GCS findings Spontaneous Obeys Commands Oriented 15 Sensorium / Orientation: alert Plantar Reflex: Downgoing: bilateral Psych Mood & Affect: depressed Skin no rashes or lesions noted, no wounds, skin turgor normal and no jaundice MDM MDM MDM Narrative Medical decision making narrative: Clinically I am suspicious patient has a hip fracture. Because she also has pain with stressing of the collateral ligaments and joint line tenderness will obtain x-ray of the knee to rule out strain versus fracture and obtain x-ray of the ankle to rule out sprain versus fracture. Patient does have a hip fracture. In light of this chest x-ray was added as well as EKG and appropriate blood work. Patient will need an IV. Apparently nurse initially obtained an IV however the IV blew. Lab Data Lab results narrative: White count is slightly elevated. H&H is 11.9 and 35.7, which is patient's baseline. Basic metabolic panel shows a slight increase in anion gap and BUN of 16 and 20 respectively. Estimated GFR 45. Radiography Chest X-Ray - ED: 1 View (Chest x-ray reveals no acute process. There is minor chronic changes. Borderline cardiomegaly. Cardiac silhouette normal. Hilum is unremarkable. Osseous structures reveal no abnormality and specifically no evidence of rib fractures or pneumothorax.), 2 View (There is no acute pathology. There appears to be an old distal fibular fracture. There is no evidence of fracture of the base of fifth metatarsal. There is osteoarthritic changes of the ankle joint noted.) and Read by ED Physician (Three-view x-ray of the right hip reveals clips from prior pelvic surgery and atherosclerotic disease. Patient has a Richey type for femoral neck fracture.) Diagnostic Testing: Clinical Impression(s) from Imaging Studies Ankle X-Ray 04/24/25 15:20 IMPRESSION: 1. Soft tissue swelling. 2. Degenerative changes as above. Reading Location: [facility] Chest X-Ray 04/24/25 15:20 IMPRESSION: Cardiomegaly without overt failure. Reading Location: [facility] Hip/Pelvis X-Ray 04/24/25 15:20 IMPRESSION: Comminuted mildly displaced fracture of the right femoral neck. Reading Location: [facility] Knee X-Ray 04/24/25 15:20 IMPRESSION: Degenerative changes as above. Reading Location: [facility] EKG Initial EKG: Attestation: I personally reviewed and interpreted this EKG as follows: Interpretation: Sinus Rhythm (Rate is 73. Left axis. NM interval is 206 ms QRS duration 128 ms. QT duration 0.18 ms. Patient does have evidence of right bundle branch block. There is nonseptic changes due to the bundle bundle branch block. There is no acute ischemic changes noted) Management Discussion w/another healthcare provider: Hospitalist (Dr. Eisenberg is made aware. Full admit [facility]) and [facility] (Dr. mOer Monterorso on-call for orthopedics was paged.) Discharge Plan Dx/Rx/DC Orders Clinical Impression: Closed displaced fracture of right femoral neck, Diabetes mellitus, Neuropathy, Hypothyroid, Injury due to fall Disposition Disposition: Acute Care Hospital [facility] Discharge Date/Time: 04/24/25 16:55
--- NOTE | 2025-04-24 16:20 | PCM.HP.STD ---
HPI - General General Date of Admission: 04/24/25 Date of Service: 04/24/25 Chief Complaint: hip pain HPI Narrative LA DORMAN, is a 69 F who presents with right hip pain. 69-year-old female with a history of diabetes who has been using a walker at home and there is an incline in their house and then she lost balance and then fell landing on her right side. Denied hitting her head or any loss of consciousness. Was unable to move. Presented to the emergency room and was found to have a comminuted mildly displaced fracture of the right femoral neck. Dr. Monterroso of the orthopedics was contacted through the emergency room physician and is tentatively planning to take the patient to surgery on the . Patient has had a dramatic decline after having a very severe case of C. difficile proximately 2 years ago. Has been in nursing homes and recently has been discharged to home. Patient no longer has active C. difficile and has completed the treatment. She has not required any colectomy. 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 Thyroid disease Uses wheelchair Walker as ambulation aid Low iron History of echocardiogram (10/28/22) History of renal disease History of renal dialysis History of acute pancreatitis Abnormal mammogram Schizophrenia History of chronic kidney disease History of diabetes mellitus Diabetes mellitus type 2 in obese BALDO (acute kidney injury) Gastroesophageal reflux disease Hyperlipidemia Morbid obesity Depression Chronic kidney disease, stage 3a Diabetes mellitus Edema Laura syndrome Debility Obstructive sleep apnea on CPAP Anemia of chronic renal failure, stage 3 (moderate) BMI 37.0-37.9, adult Iron deficiency anemia due to chronic blood loss Obstructive sleep apnea syndrome Nonhealing nonsurgical wound with fat layer exposed Wound of skin Osteopenia Chronic renal disease, stage 3, moderately decreased glomerular filtration rate (GFR) between 30-59 mL/min/1.73 square meter Anemia Anemia Major depressive disorder, recurrent episode Malaise and fatigue Hyperlipidemia associated with type 2 diabetes mellitus Vision problems Pancreatitis Diabetes type 2, controlled Cataracts, bilateral Bone fracture Back problem Home Medications ?Medication ?Instructions ?Recorded ?Last Taken ?Type atorvastatin 40 mg tablet 40 mg PO QHS Cholesterol 01/06/20 02/05/23 History ferrous fumarate-vit C-vit B12 1 gummy PO/SL DAILY SUPPLEMENT 01/25/23 02/05/23 History cholecalciferol (vitamin D3) 10 20 mcg PO DAILY vitamin 08/19/23 Unknown History mcg (400 unit) tablet insulin degludec 100 unit/mL (3 8 unit subcut QHS diabtetes 11/30/23 11/02/24 10:00 History mL) subcutaneous pen (Tresiba 4 unit FlexTouch U-100 insulin) potassium chloride 20 mEq 40 meq PO DAILY SUPPLEMENT 06/06/24 Unknown History tablet,extended release(part/cryst) buspirone 15 mg tablet 15 mg PO BID mood stabilizer 08/29/24 Unknown History mirtazapine 15 mg tablet 15 mg PO QHS antidepressant 08/29/24 Unknown History olanzapine 20 mg tablet 20 mg PO QHS 08/29/24 Unknown History insulin aspart U-100 100 unit/mL 15 unit (0.15 mL) subcut TID 09/12/24 Unknown Rx (3 mL) subcutaneous pen (Novolog diabetes #40.5 mL FlexPen U-100 Insulin aspart) insulin lispro 100 unit/mL 1 sliding scale dose subcut TID 10/23/24 Unknown History subcutaneous pen high sugar levothyroxine 88 mcg tablet 88 mcg PO DAILY thyriod 10/23/24 11/02/24 History lamotrigine 25 mg tablet 50 mg (2 x 25 mg) PO QDAY seizures 01/30/25 Unknown Rx 30 days #180 tabs Allergy/AdvReac Type Severity Reaction Status Date / Time adhesive tape AdvReac Intermediate Rash Verified 04/24/25 13:58 codeine AdvReac Intermediate Dizziness Verified 04/24/25 13:58 Family History Mother Diabetes Father Heart disease Hypertension Surgical History History of breast lump/mass excision S/P hemodialysis catheter insertion Hx of cataract surgery S/P partial hysterectomy Hx of appendectomy Hx of cholecystectomy Status post ORIF of fracture of ankle Social History household members: spouse Smoking Status: Never smoker second hand exposure: No alcohol intake: never substance use type: does not use salas/jain: [employer] seatbelt use: always do you feel safe at home: Yes ERIC Mathews Does not have chest pain or shortness of breath when she does exert herself though it is limited because she does use a walker. Otherwise been feeling well. All review of systems were negative except as mentioned above in the history of present illness and the other review of systems. Vital Signs Vital Signs Vital Signs: 04/24/25 13:57 04/24/25 14:05 04/24/25 15:00 Temperature 37.2 C 36.6 C Temperature Source Oral Pulse Rate 70 81 Respiratory Rate 16 16 Respiratory Effort Normal Non-Labored Respiratory Depth Normal Respiratory Pattern Normal Blood Pressure 99/67 128/78 H Blood Pressure Mean 77 94 Pulse Ox 99 98 98 Oxygen Delivery Method Room Air Room Air 04/24/25 15:57 Temperature Temperature Source Pulse Rate 87 Respiratory Rate 18 Respiratory Effort Respiratory Depth Respiratory Pattern Blood Pressure 140/87 H Blood Pressure Mean 104 Pulse Ox 98 Oxygen Delivery Method Weight Weight: 66.224 kg Body Mass Index (BMI) 27.6 Physical Exam Narrative - Physical Exam General: Alert, Oriented x3, Cooperative HEENT: Atraumatic, PERRLA, EOMI, Normocephalic Oral: Moist Mucosa, No Gingival or Mucosal Lesions/ Ulcerations Neck: No lymphadenopathy. No thyromegaly. Lungs: Clear to auscultation, Normal air movement Cardiovascular: Regular rate, Normal S1, Normal S2, No murmurs Abdomen: Bowel Sounds Present, Soft, Non Tender, Non-Distended, No Hepato-splenomegaly Extremities: No clubbing, No cyanosis, No edema, shortened right lower extremity compared to her left. Skin: No rashes, No breakdown Musculoskeletal: No Tenderness to Palpation of Joints or Extremities Neurological: Moves all extremities spontaneously. Psych/Mental Status: Normal Affect, Appropriate Results Lab / Micro Data Attestation: I reviewed the patient's lab results. Imaging Radiology Impression Ankle X-Ray 04/24/25 15:20 IMPRESSION: 1. Soft tissue swelling. 2. Degenerative changes as above. Reading Location: [facility] Chest X-Ray 04/24/25 15:20 IMPRESSION: Cardiomegaly without overt failure. Reading Location: [facility] Hip/Pelvis X-Ray 04/24/25 15:20 IMPRESSION: Comminuted mildly displaced fracture of the right femoral neck. Reading Location: [facility] Knee X-Ray 04/24/25 15:20 IMPRESSION: Degenerative changes as above. Reading Location: [facility] Assessment & Plan Assessment/Plan (1) Closed displaced fracture of right femoral neck: PLAN: Acute, initial presentation Reviewed with patient and patient is otherwise medically optimized to proceed with surgery. No further modification is necessary at this time. Tentative plan as well as told to the emergency room physician is for the patient to go to surgery tomorrow. Patient will be n.p.o. after midnight with anticipation for surgery on the . Patient will be on bedrest. Check a 25-hydroxy vitamin D level and replace if low. Pain control. After surgery patient to be evaluated by therapy and case management to see highly suspect the patient will require assisted facility when she is medically surgically ready to be discharged. PLAN: Plan Chronic conditions Diabetes mellitus type 2: Continue with glargine and prandial insulin. Dose will be held while she is NPO. Sliding scale insulin. Seizure disorder: Currently stable. Continue lamotrigine. Hypothyroidism: Continue with levothyroxine Anemia: Currently stable. Follows with [facility]. Continue with her iron supplement VTE prophylaxis: SCDs for now, until after surgery. CODE STATUS: Addressed with patient. Patient wishes to be full code. Discussed with the patient's at bedside. Charges/Coding Visit Charges Inpatient E&M: 64339 Init Hosp L2
--- NOTE | 2025-04-24 16:37 | CON.PCM_ITS ---
Assessment & Plan Assessment/Plan (1) Closed displaced fracture of right femoral neck: PLAN: Plan Status post ground-level fall, sustaining right femoral neck fracture displaced Thorough discussion was had with the patient and her in regards to operative and nonoperative treatment wrist benefits alternatives of right hip hemiarthroplasty were discussed discussed including risk of bleeding infection nerve artery tissue damage, blood clot, leg length discrepancy, need for further surgery continued pain postoperative restrictions including a precautions for dislocation intraoperative fracture and postoperative expectations. Informed consent was signed and placed in the chart Plan for right hip hemiarthroplasty 04/25/2025 tentatively 9 AM. HPI Consult Data Date of Consult: 04/24/25 HPI Narrative HPI Narrative: LA DORMAN, is a 69 F who presents after ground-level fall at home on her ramp landing onto her right side injuring her right hip. X-rays were taken in the emergency room which demonstrate a displaced femoral neck fracture. She is also complaining of right knee pain she did have x-rays of the knee which were unremarkable for acute injury however joint arthrosis. Patient is a community ambulator with walker for generalized weakness she does live with her she does have ramps at home and is not required to navigate any steps. She does not smoke or drink. 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 Thyroid disease Uses wheelchair Walker as ambulation aid Low iron History of echocardiogram (10/28/22) History of renal disease History of renal dialysis History of acute pancreatitis Abnormal mammogram Schizophrenia History of chronic kidney disease History of diabetes mellitus Diabetes mellitus type 2 in obese BALDO (acute kidney injury) Gastroesophageal reflux disease Hyperlipidemia Morbid obesity Depression Chronic kidney disease, stage 3a Diabetes mellitus Edema [place] syndrome Debility Obstructive sleep apnea on CPAP Anemia of chronic renal failure, stage 3 (moderate) BMI 37.0-37.9, adult Iron deficiency anemia due to chronic blood loss Obstructive sleep apnea syndrome Nonhealing nonsurgical wound with fat layer exposed Wound of skin Osteopenia Chronic renal disease, stage 3, moderately decreased glomerular filtration rate (GFR) between 30-59 mL/min/1.73 square meter Anemia Anemia Major depressive disorder, recurrent episode Malaise and fatigue Hyperlipidemia associated with type 2 diabetes mellitus Vision problems Pancreatitis Diabetes type 2, controlled Cataracts, bilateral Bone fracture Back problem Home Medications ?Medication ?Instructions ?Recorded ?Last Taken ?Type atorvastatin 40 mg tablet 40 mg PO QHS Cholesterol 08/1702/05/23 History ferrous fumarate-vit C-vit B12 1 gummy PO/SL DAILY SUP PLEMENT 01/25/23 02/05/23 History cholecalciferol (vitamin D3) 10 20 mcg PO DAILY vitami n 08/19/23 Unknown History mcg (400 unit) tablet insulin degludec 100 unit/mL (3 8 unit subcut QHS diab tetes 11/30/23 11/02/24 10:00 History mL) subcutaneous pen (Tresiba 4 unit FlexTouch U-100 insulin) potassium chloride 20 mEq 40 meq PO DAILY SUPPLEMENT 0 06/06/24 Unknown History tablet,extended release(part/cryst) buspirone 15 mg tablet 15 mg PO BID mood stabilizer 08/29/24 Unknown History mirtazapine 15 mg tablet 15 mg PO QHS antidepressant 08/29/24 Unknown History olanzapine 20 mg tablet 20 mg PO QHS 08/29/24 Unknow n History insulin aspart U-100 100 unit/mL 15 unit (0.15 mL) sub cut TID 09/12/24 Unknown Rx (3 mL) subcutaneous pen (Novolog diabetes #40.5 mL FlexPen U-100 Insulin aspart) insulin lispro 100 unit/mL 1 sliding scale dose subcut TID 10/23/24 Unknown History subcutaneous pen high sugar levothyroxine 88 mcg tablet 88 mcg PO DAILY thyriod 11/02/24 History lamotrigine 25 mg tablet 50 mg (2 x 25 mg) PO QDAY se izures 01/30/25 Unknown Rx 30 days #180 tabs Allergy/AdvReac Type Severity Reaction Status Date / Time adhesive tape AdvReac Intermediate Rash Verified 04/24/25 13:58 codeine AdvReac Intermediate Dizziness Verified 04/24/25 13:58 Family History Mother Diabetes Father Heart disease Hypertension Surgical History History of breast lump/mass excision S/P hemodialysis catheter insertion Hx of cataract surgery S/P partial hysterectomy Hx of appendectomy Hx of cholecystectomy Status post ORIF of fracture of ankle Social History household members: spouse Smoking Status: Never smoker second hand exposure: No alcohol intake: never substance use type: does not use salas/anabaptist: Jew seatbelt use: always do you feel safe at home: Yes Physical Exam Const alert, oriented x3 and no apparent distress General Appearance: cooperative and comfortable Extremity Extremity Narrative: Her right hip is painful with log roll. No open wounds or ecchymosis around the hip her compartments are soft she is able to extend her great toe and plantarflex dorsiflexion is limited she has palpable pedal pulses. Lab / Micro Data 04/24/25 16:27 04/24/25 16:27 Imaging Radiology Impression Ankle X-Ray 04/24/25 15:20 IMPRESSION: 1. Soft tissue swelling. 2. Degenerative changes as above. Reading Location: [facility] Chest X-Ray 04/24/25 15:20 IMPRESSION: Cardiomegaly without overt failure. Reading Location: [facility] Hip/Pelvis X-Ray 04/24/25 15:20 IMPRESSION: Comminuted mildly displaced fracture of the right femoral neck. Reading Location: [facility] Knee X-Ray 04/24/25 15:20 IMPRESSION: Degenerative changes as above. Reading Location: [facility]
[2025-04-24] MEDS: Morphine 2 MG/ML Syringe IV ×2 (16:46→20:39)
[2025-04-24 17:19] LABS: Anion Gap 14 (5-15); BUN 21 mg/dL (4-19); BUN/Creat Ratio 20.5 RATIO (10-20); Calcium,Total 9.2 mg/dL (7.6-11.0); Carbon Dioxide 24.5 mmol/L (21.0-32.0); Chloride 101 mmol/L (98-108); EST Glomerular Filtration Rate 60 (>60); Estimated Creatinine Clearance 44.94 ml/min (50-250); Glucose 102 mg/dL (70-99); Sodium Level 139 mmol/L (133-145)
[2025-04-24 17:51] LABS: Bedside Glucose 88 mg/dL (74-106)
[2025-04-24 18:50] LABS: Vitamin D,25 Hydroxy 39.8 ng/mL (30-100)
[2025-04-24 18:53] LABS: ALB/GLOB Ratio 1.3 RATIO (0.9-2.4); AST(SGOT) 32 U/L (<=31); Alanine Aminotransfer ALT/SGPT 19 U/L (<=34); Albumin, Serum 3.8 g/dL (3.4-4.8); Alkaline Phosphatase 130 U/L (35-104); Anion Gap 16 (5-15); BUN 20 mg/dL (4-19); BUN/Creat Ratio 20.5 RATIO (10-20); Calcium,Total 9.2 mg/dL (7.6-11.0); Carbon Dioxide 22.6 mmol/L (21.0-32.0); Chloride 101 mmol/L (98-108); Creatinine, Serum 0.99 mg/dL (0.70-1.20); EST Glomerular Filtration Rate 61 (>60); Glucose 102 mg/dL (70-99); Protein, Total 6.8 g/dL (5.9-8.4); Sodium Level 139 mmol/L (133-145); Total Bilirubin 0.78 mg/dL (0.00-1.30)
[2025-04-24 19:39] LABS: Absolute Lymphocyte Count 1.12 X10^3/uL (0.83-4.51); Absolute Neutrophil Count 9.4 X10^3/uL (2.0-7.7); Basophil# 0.02 X10^3/uL; Basophil% 0.2 % (0-1); Eosinophil# 0.07 X10^3/uL; Eosinophils% 0.6 % (0-5); Hematocrit 35.7 % (37-47); Hemoglobin 11.9 g/dL (12.0-15.0); Lymphocyte # 1.12 X10^3/ul (0.83-4.51); Mean Corp Hgb Conc 33.3 g/dL (32-36); Mean Corpuscular Hgb 31.2 pg (27.0-32.0); Mean Corpuscular Volume 93.5 fL (81-99); Mean Platelet Vol. 10.8 fl (6.2-12.0); Monocyte# 0.59 X10^3/uL; Monocyte% 5.3 % (0-10); NRBC Flagged by Analyzer 0 % (0-5); Neutrophil # 9.37 X10^3/uL (2.7-7.7); Neutrophil % 83.5 % (47-70); Platelet Count 169 K/mm3 (150-450); RBC Distribution Width CV 13.6 % (11.6-14.6); RBC Distribution Width SD 46.5 fl (35.1-43.9); Red Blood Count 3.82 M/mm3 (4.2-5.4); White Blood Count 11.2 K/mm3 (4.4-11.0)
[2025-04-24] MEDS: 0.9% Saline Lock 10 ML Syringe IV (20:39)
[2025-04-24] MEDS: Insulin Glargine-YFGN 100 UNIT/ML Pen 8 UNIT SC (22:26)
[2025-04-24] MEDS: Atorvastatin Calcium 40 MG Tablet PO (22:28)
[2025-04-24] MEDS: busPIRone 15 MG TABLET PO (22:28)
[2025-04-24] MEDS: OLANZapine 10 MG Tablet 20 MG PO (22:28)
[2025-04-24] MEDS: Senna/Docusate Sodium 1 Tablet 2 TABLET PO (22:28)
[2025-04-24] MEDS: Mirtazapine 15 MG Tablet PO (22:28)
[2025-04-24] MEDS: Insulin Lispro 100 UNIT/ML INSULN.PEN SC (22:38)
[2025-04-24 22:53] LABS: Bedside Glucose 196 mg/dL (74-106)
[2025-04-25] VITALS (17 sets, daily range): BP systolic 90–141; BP diastolic 40–69; PULSE 64–86; RESP 14–16; TEMP 36.2–37.2; O2SAT 96–100; BMI 26.8
[2025-04-25] MEDS: Nystatin Powder 15gm Bottle 1 APPLIC TOPICAL (00:30)
[2025-04-25 05:57] LABS: Absolute Lymphocyte Count 1.09 X10^3/uL (0.83-4.51); Absolute Neutrophil Count 6.1 X10^3/uL (2.0-7.7); Basophil# 0.02 X10^3/uL; Basophil% 0.3 % (0-1); Eosinophil# 0.17 X10^3/uL; Eosinophils% 2.2 % (0-5); Hemoglobin 9.8 g/dL (12.0-15.0); Lymphocyte # 1.09 X10^3/ul (0.83-4.51); Lymphocyte % 14.1 % (19-41); Mean Corp Hgb Conc 33.8 g/dL (32-36); Mean Corpuscular Hgb 30.8 pg (27.0-32.0); Mean Corpuscular Volume 91.2 fL (81-99); Mean Platelet Vol. 11.2 fl (6.2-12.0); Monocyte# 0.35 X10^3/uL; Monocyte% 4.5 % (0-10); NRBC Flagged by Analyzer 0 % (0-5); Neutrophil # 6.05 X10^3/uL (2.7-7.7); Neutrophil % 78.5 % (47-70); Platelet Count 154 K/mm3 (150-450); RBC Distribution Width CV 13.6 % (11.6-14.6); RBC Distribution Width SD 45.6 fl (35.1-43.9); Red Blood Count 3.18 M/mm3 (4.2-5.4); White Blood Count 7.7 K/mm3 (4.4-11.0)
[2025-04-25 06:37] LABS: Anion Gap 11 (5-15); BUN 24 mg/dL (4-19); BUN/Creat Ratio 18.3 RATIO (10-20); Calcium,Total 8.7 mg/dL (7.6-11.0); Carbon Dioxide 26.3 mmol/L (21.0-32.0); Chloride 100 mmol/L (98-108); EST Glomerular Filtration Rate 44 (>60); Estimated Creatinine Clearance 34.11 ml/min (50-250); Glucose 145 mg/dL (70-99); Potassium 3.9 mmol/L (3.3-5.1); Sodium Level 137 mmol/L (133-145)
[2025-04-25 06:52] LABS: Bedside Glucose 139 mg/dL (74-106)
--- NOTE | 2025-04-25 07:23 | PN.HOSP_ITS ---
Reason for Visit Reason for Visit: Diagnoses Fracture of unspecified part of neck of right femur, initial encounter for closed fracture (04/24/25) Subjective Subjective Patient is a 69-year-old lady admitted following a fall sustaining right femoral neck fracture. Admitted to the regular nursing floor with consultation placed to orthopedic surgery Objective Data Objective Data Vital Signs: Vital Signs Temp Pulse Resp BP Pulse Ox O2 Del Method O2 Flow Rate 97.9 F 70 15 95/55 L 98 Nasal Cannula 2 04/25/25 06:10 04/25/25 06:10 04/25/25 06:10 04/25/25 07:08 04/25/25 06:10 04/25/25 06:10 04/25/25 06:10 Oxygen Flow Rate (L/min) 2 Oxygen Delivery Method Nasal Cannula Weight: 64.41 kg Body Mass Index (BMI) 26.8 Intake & Output: Intake and Output for Last 24 Hours 04/23/25 04/24/25 04/25/25 23:59 23:59 23:59 Output Total 200 / 200 Balance -200 / -200 Lab / Micro Data 04/25/25 04:45 04/25/25 04:45 Labs: Laboratory Results - last 24 hr 04/24/25 16:27: WBC Cancelled, Corrected WBC Cancelled, RBC Cancelled, Hgb Cancelled, Hct Cancelled, MCV Cancelled, MCH Cancelled, MCHC Cancelled, RDW Std Deviation Cancelled, RDW Coeff of Joe Cancelled, Plt Count Cancelled, MPV Cancelled, Immature Gran % (Auto) Cancelled, Neut % (Auto) Cancelled, Lymph % (Auto) Cancelled, [place] % (Auto) Cancelled, Eos % (Auto) Cancelled, Baso % (Auto) Cancelled, Absolute Neuts (auto) Cancelled, Absolute Lymphs (auto) Cancelled, Total Counted Cancelled, Neutrophils % (Manual) Cancelled, Band Neutrophils % Cancelled, Lymphocytes % (Manual) Cancelled, Monocytes % (Manual) Cancelled, Eosinophils % (Manual) Cancelled, Basophils % (Manual) Cancelled, Metamyelocytes % Cancelled, Myelocytes % Cancelled, Promyelocytes % Cancelled, Blast Cells % Cancelled, Plasma Cell % (Manual) Cancelled, Other Cells % Cancelled, Nucleated RBC % Cancelled, Nucleated RBCs/100 WBC Cancelled, Differential Comment Cancelled, Diff Path Review Cancelled, Hypersegmented Neuts Cancelled, Atypical Lymphocytes Cancelled, Reactive Lymphocytes Cancelled, Smudge Cells Cancelled, Toxic Granulation Cancelled, Toxic Vacuolation Cancelled, Dohle Bodies Cancelled, Sari Rods Cancelled, Platelet Estimate Cancelled, Plt Morphology Comment Cancelled, RBC Morphology Cancelled 04/24/25 16:27: RBC Morphology Cancelled, Polychromasia Cancelled, Hypochromasia Cancelled, Basophilic Stippling Cancelled, Anisocytosis Cancelled, Microcytosis Cancelled, Macrocytosis Cancelled, Spherocytes Cancelled, Sickle Cells Cancelled, Target Cells Cancelled, Tear Drop Cells Cancelled, Ovalocytes Cancelled, Stomatocytes Cancelled, [place] Bodies Cancelled, [place] Cells Cancelled, Bite Cells Cancelled, Crenated Cell Cancelled, Acanthocytes (Spur) Cancelled, Rouleaux Cancelled, Schistocytes Cancelled, Sodium 139, Potassium 4.0, Chloride 101, Carbon Dioxide 24.5, Anion Gap 14, BUN 21 H, Creatinine 1.00, Estim Creat Clear Calc 44.94 L, Est GFR (MDRD) Non-Af 60, BUN/Creatinine Ratio 20.5 H, Glucose 102 H, Calcium 9.2 04/24/25 17:20: Sodium 139, Potassium 4.0, Chloride 101, Carbon Dioxide 22.6, A nion Gap 16 H, BUN 20 H, Creatinine 0.99, Estim Creat Clear Calc 44.80 L, Est GFR (MDRD) Non-Af 61, BUN/Creatinine Ratio 20.5 H, Glucose 102 H, Calcium 9.2, Total Bilirubin 0.78, AST 32, ALT 19, Alkaline Phosphatase 130 H, Total Protein 6.8, Albumin 3.8, Globulin 3.0, Albumin/Globulin Ratio 1.3, Vitamin D 25-Hydroxy 39.8 04/24/25 17:34: POC Glucose 88 04/24/25 18:25: WBC Cancelled, Corrected WBC Cancelled, RBC Cancelled, Hgb Cancelled, Hct Cancelled, MCV Cancelled, MCH Cancelled, MCHC Cancelled, RDW Std Deviation Cancelled, RDW Coeff of Joe Cancelled, Plt Count Cancelled, MPV Cancelled, Immature Gran % (Auto) Cancelled, Neut % (Auto) Cancelled, Lymph % (Auto) Cancelled, [place] % (Auto) Cancelled, Eos % (Auto) Cancelled, Baso % (Auto) Cancelled, Absolute Neuts (auto) Cancelled, Absolute Lymphs (auto) Cancelled, Total Counted Cancelled, Neutrophils % (Manual) Cancelled, Band Neutrophils % Cancelled, Lymphocytes % (Manual) Cancelled, Monocytes % (Manual) Cancelled, Eosinophils % (Manual) Cancelled, Basophils % (Manual) Cancelled, Metamyelocytes % Cancelled, Myelocytes % Cancelled, Promyelocytes % Cancelled, Blast Cells % Cancelled, Plasma Cell % (Manual) Cancelled, Other Cells % Cancelled, Nucleated RBC % Cancelled, Nucleated RBCs/100 WBC Cancelled, Differential Comment Cancelled, Diff Path Review Cancelled, Hypersegmented Neuts Cancelled, Atypical Lymphocytes Cancelled, Reactive Lymphocytes Cancelled, Smudge Cells Cancelled, Toxic Granulation Cancelled, Toxic Vacuolation Cancelled, Dohle Bodies Cancelled, Sari Rods Cancelled, Platelet Estimate Cancelled, Plt Morphology Comment Cancelled, RBC Morphology Cancelled 04/24/25 18:25: RBC Morphology Cancelled, Polychromasia Cancelled, Hypochromasia Cancelled, Basophilic Stippling Cancelled, Anisocytosis Cancelled, Microcytosis Cancelled, Macrocytosis Cancelled, Spherocytes Cancelled, Sickle Cells Cancelled, Target Cells Cancelled, Tear Drop Cells Cancelled, Ovalocytes Cancelled, Stomatocytes Cancelled, [place] Bodies Cancelled, [place] Cells Cancelled, Bite Cells Cancelled, Crenated Cell Cancelled, Acanthocytes (Spur) Cancelled, Rouleaux Cancelled, Schistocytes Cancelled, Blood Type A POSITIVE, Antibody Screen NEGATIVE 04/24/25 19:30: WBC 11.2 H, RBC 3.82 L, Hgb 11.9 L, Hct 35.7 L, MCV 93.5, MCH 31.2, MCHC 33.3, RDW Std Deviation 46.5 H, RDW Coeff of Joe 13.6, Plt Count 169, MPV 10.8, Immature Gran % (Auto) 0.400, Neut % (Auto) 83.5 H, Lymph % (Auto) 10.0 L, [place] % (Auto) 5.3, Eos % (Auto) 0.6, Baso % (Auto) 0.2, Absolute Neuts (auto) 9.4 H, Absolute Lymphs (auto) 1.12, Nucleated RBC % 0 04/24/25 22:25: POC Glucose 196 H 04/25/25 04:45: WBC 7.7, RBC 3.18 L, Hgb 9.8 L, Hct 29.0 L, MCV 91.2, MCH 30.8, MCHC 33.8, RDW Std Deviation 45.6 H, RDW Coeff of Joe 13.6, Plt Count 154, MPV 11.2, Immature Gran % (Auto) 0.400, Neut % (Auto) 78.5 H, Lymph % (Auto) 14.1 L, [place] % (Auto) 4.5, Eos % (Auto) 2.2, Baso % (Auto) 0.3, Absolute Neuts (auto) 6.1, Absolute Lymphs (auto) 1.09, Nucleated RBC % 0, Sodium 137, Potassium 3.9, Chloride 100, Carbon Dioxide 26.3, Anion Gap 11, BUN 24 H, Creatinine 1.30 H, E stim Creat Clear Calc 34.11 L, Est GFR (MDRD) Non-Af 44 L, BUN/Creatinine Ratio 18.3, Glucose 145 H, Hemoglobin A1c 7.0 H, Calcium 8.7, TSH 1.560 04/25/25 06:27: POC Glucose 139 H Radiography Diagnostic Testing: Radiology Impression Ankle X-Ray 04/24/25 15:20 IMPRESSION: 1. Soft tissue swelling. 2. Degenerative changes as above. Reading Location: [facility] Chest X-Ray 04/24/25 15:20 IMPRESSION: Cardiomegaly without overt failure. Reading Location: [facility] Hip/Pelvis X-Ray 04/24/25 15:20 IMPRESSION: Comminuted mildly displaced fracture of the right femoral neck. Reading Location: [facility] Knee X-Ray 04/24/25 15:20 IMPRESSION: Degenerative changes as above. Reading Location: [facility] Physical Exam Narrative GENERAL: cooperative HEENT: Atraumatic; normocephalic EYES; Anicteric, Normal Conjunctiva NECK; supple, normal thyroid, RESPIRATORY: Diminished to auscultation CARDIOVASCULAR: Regular S1 S2, GI: soft, normoactive bowel sounds, : No Renal angle tenderness; EXTREMITIES: No edema, no clubbing, MUSCULOSKELETAL: no muscle wasting NEURO: Awake; no lateralizing signs. SKIN: No Rash PSYCH; Flat affect Assessment & Plan Assessment/Plan (1) Closed displaced fracture of right femoral neck: PLAN: Plan Patient is a 69-year-old lady admitted following a fall sustaining right femoral neck fracture. Admitted to the regular nursing floor with consultation placed to orthopedic surgery 1. Fall with displaced fracture of the right femoral neck ? Patient has been admitted to regular nursing floor. Initial treatment with immobilization of the affected extremity pain management instituted. Consult was placed to orthopedic surgery. Patient initially preop assessment as documented by admitting physician 2. Diabetes mellitus type 2 with complications including diabetic nephropathy ? Patient is on long-acting insulin plan is to initiate following patient surgical intervention. Also placed on Accu-Cheks ACHS with sliding scale coverage 3. Chronic kidney disease stage IIIa As a result of diabetic nephropathy. Kidney function at baseline 4. Hypothyroidism - Patient is on levothyroxine home dose continued 5. Seizure disorder ? Patient is on lamotrigine continued 6. Dyslipidemia -Patient is on statin therapy, continued at home dose 7. Anemia ? Secondary to chronic disorder monitoring H&H and transfuse if patient becomes symptomatic or hemoglobin falls below 7 8. DVT prophylaxis ? Plan is to initiate chemoprophylaxis following patient surgical intervention Charges/Coding Visit Charges Inpatient E&M: 96361 Subs Hosp L2
--- NOTE | 2025-04-25 08:52 | PCM.PRE.AN2 ---
ASA Classification* ASA Classification ASA Classification: 3 (CKD3, anemia, hypothyroidism, T2DM) Assessment & Plan Anesthesia* Anesthesia Assessment Anesthesia Assessment: Discussed sedation and/or anesthesia options, risks, benefits, and alternatives with patient/parents/legal guardian/POA. Questions invited. The patient/parents/legal guardian/POA seems to understand and agrees to proceed with anesthesia plan. Reviewed the physical assessment, medical history, allergy history and patient home medications list prior to surgery/procedure/anesthetic and documented any changes. Performed airway and anesthesia risk assessments. Anesthesia Type Anesthesia Type: General History Source History Obtained from:: Patient and Chart Anesthesia Focused Assessment* Temperature: 98.1 F Pulse Rate: 72 Blood Pressure: 97/51 Respiratory Rate: 16 Pulse Ox: 99 Oxygen Flow Rate (L/min): 2 Airway Assessment Mouth opens: 2 cm Mallampati Score: IV Teeth Condition: Intact Neck Range of motion (ROM): Full ROM Focused Labs Anesthesia Preop lab: CBC WBC 7.7 K/mm3 (4.4-11.0) 04/25/25 04:45 04/25/25 RBC 3.18 M/mm3 (4.2-5.4) L 04/25/25 04:45 04/25/25 Hgb 9.8 g/dL (12.0-15.0) L 04/25/25 04:45 04/25/25 Hct 29.0 % (37-47) L 04/25/25 04:45 04/25/25 Plt Count 154 K/mm3 (150-450) 04/25/25 04:45 04/25/25 CHEMISTRY Potassium 3.9 mmol/L (3.3-5.1) 04/25/25 04:45 04/25/25 Sodium 137 mmol/L (133-145) 04/25/25 04:45 04/25/25 Magnesium 1.9 mg/dL (1.6-2.6) 11/01/22 04:34 11/01/22 Phosphorus 2.6 mg/dL (2.5-4.9) 01/16/25 11:50 01/16/25 BUN 24 mg/dL (4-19) H 04/25/25 04:45 04/25/25 Creatinine 1.30 mg/dL (0.70-1.20) H 04/25/25 04:45 04/25/25 Glucose 145 mg/dL (70-99) H 04/25/25 04:45 04/25/25 POC Glucose 139 mg/dL (74-106) H 04/25/25 06:27 04/25/25 TSH 1.560 uIU/mL (0.300-4.200) 04/25/25 04:45 04/25/25 COAG PT 13.5 SECONDS (11.7-14.9) 04/03/22 06:12 04/03/22 Pre-Assessment Diagnosis/Proposed Procedure Planned Operative Procedure(s): Hemiarthroplasty, hip - right Anesthesia History 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 When Was Last Pacemaker Check QUESTION #4 FULL TEXT: You/Your Family Experience fever (hyperthermia) with Anesthesia Last Oral Intake Last Oral intake: Last Oral Intake NPO since 18:00 04/25/25 08:29 Meds taken in AM with sips of No 04/25/25 08:29 water? Meds patient instructed to take am of surgery PONV PONV - plant control operator: PONV - plant control operator Female HX of Motion Sickness HX of N/V After Surgery Non-Smoker Duration of Surgery greater than 60 minutes Number of Risk Factors PONV Score Height & Weight Height & Weight: Anesthesia: Height & Weight Height 5 ft 1 in 04/25/25 08:29 Weight: 64.41 kg 04/25/25 08:29 Body Mass Index (BMI) 26.8 04/25/25 08:29 Respiratory Assessment Respiratory Assessment - plant control operator: Respiratory Tract Infection Hx - plant control operator Hx Respiratory Tract Infection No 04/24/25 20:24 STOP Sleep Apnea STOP Sleep Apnea - plant control operator: STOP Sleep Apnea - plant control operator Hx Hypertension No 04/24/25 17:30 Hx Sleep Apnea No 04/24/25 17:30 CPAP Yes: doesnt wear- full face 11/02/24 15:40 BIPAP No 10/23/24 08:47 Do you snore loudly (louder No 04/24/25 17:30 than talking or can be heard Do you often feel tired/ No 04/24/25 17:30 fatigued/ sleepy during daytime? Has anyone observed you stop No 04/24/25 17:30 breathing during sleep? STOP Results Negative 04/24/25 17:30 QUESTION #5 FULL TEXT : Do you snore loudly (louder than talking or can be heard through closed doors)? 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 Specify any problems Hx of Preganancy in last 3 N/A 04/24/25 17:30 Months Nurse Filling Out Transfusion LDOTTERER 04/24/25 17:30 & Questions: Date: 04/24/25 04/24/25 17:30 Time: 17:35 04/24/25 17:30 Patient unable to answer at this time (ie. confused, unrespo /Reproduction History /Reproductive History - plant control operator: /Reproductive Hx- plant control operator Hx Now No 04/24/25 20:24 Gestational Age (in weeks): EDC: Hx Hx Para Hx Section SAB No 10/23/24 08:47 Active Medications Active Medications: Current Medications Generic Name Dose Route Start Last Admin Trade Name Freq PRN Reason Stop Dose Admin Acetaminophen 650 mg 04/24/25 16:36 Acetaminophen 325 Mg Tablet PO Q6H PRN PRN Pain 1-10 Or Fever >100.7 Atorvastatin Calcium 40 mg 04/24/25 22:00 04/24/25 22:28 Atorvastatin Calcium 40 Mg Tablet PO 40 mg QHS NELLIE Administration Buspirone HCl 15 mg 04/24/25 22:00 04/24/25 22:28 Buspirone 15 Mg Tablet PO 15 mg BID NELLIE Administration Glucagon 1 mg 04/24/25 16:36 Glucagon 1 Mg/Ml Syringe IM X1 PRN HYPOGLYCEMIA Protocol Dextrose 250 mls @ 0 mls/hr 04/24/25 16:36 Dextrose 10%-Water IV .Q0M PRN HYPOGLYCEMIA Protocol As Directed Cefazolin Sodium 2 gm/ Sodium 110 mls @ 150 mls/hr 04/25/25 09:00 Chloride IV 04/25/25 09:43 INTRAOP ONE Tranexamic Acid 2,000 mg/ 120 mls @ 280 mls/hr 04/25/25 09:00 Sodium Chloride IV 04/25/25 09:25 X1 ONE Insulin Glargine 8 unit 04/24/25 22:00 04/24/25 22:26 Insulin Glargine-Yfgn 100 Unit/Ml Pen SC 8 unit QHS NELLIE Administration Insulin Human Lispro 0 unit 04/24/25 22:00 04/25/25 06:58 Insulin Lispro 100 Unit/Ml Insuln.Pen SC Not Given ACHS [facility] Protocol Lamotrigine 50 mg 04/25/25 10:00 Lamotrigine 25 Mg Tablet PO DAILY [facility] Levothyroxine Sodium 88 mcg 04/25/25 06:00 04/25/25 06:57 Levothyroxine 88 Mcg Tablet PO Not Given DAILY@0600 NELLIE Mirtazapine 15 mg 04/24/25 22:00 04/24/25 22:28 Mirtazapine 15 Mg Tablet PO 15 mg QHS NELLIE Administration Morphine Sulfate 2 - 4 mg 04/24/25 16:36 04/24/25 20:39 Morphine 2 Mg/Ml Syringe IV 2 mg Q3H PRN PRN Administration Pain Score 6-10 Nystatin 1 applic 04/24/25 23:30 04/25/25 00:30 Nystatin Powder 15gm Bottle TOPICAL 1 applic BID NELLIE Administration Protocol Olanzapine 20 mg 04/24/25 22:00 04/24/25 22:28 Olanzapine 10 Mg Tablet PO 20 mg QHS NELLIE Administration Ondansetron HCl 4 mg 04/24/25 16:36 Ondansetron 4 Mg/2 Ml Vial IV Q8H PRN PRN NAUSEA/VOMITING Oxycodone HCl 5 mg 04/24/25 16:36 Oxycodone 5 Mg Tablet PO Q4H PRN PRN Pain Score 4-10 Senna/Docusate Sodium 2 tablet 04/24/25 22:00 04/24/25 22:28 Senna/Docusate Sodium 1 Tablet PO 2 tablet BID NELLIE Administration Sodium Chloride 10 - 40 ml 04/24/25 17:39 04/24/25 20:39 0.9% Saline Lock 10 Ml Syringe IV 10 ml UD PRN Administration SALINE FLUSH PFSH Medical History 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 Thyroid disease Uses wheelchair Walker as ambulation aid Low iron History of echocardiogram (10/28/22) History of renal disease History of renal dialysis History of acute pancreatitis Abnormal mammogram Schizophrenia History of chronic kidney disease History of diabetes mellitus Diabetes mellitus type 2 in obese BALDO (acute kidney injury) Gastroesophageal reflux disease Hyperlipidemia Morbid obesity Depression Chronic kidney disease, stage 3a Diabetes mellitus Edema Laura syndrome Debility Obstructive sleep apnea on CPAP Anemia of chronic renal failure, stage 3 (moderate) BMI 37.0-37.9, adult Iron deficiency anemia due to chronic blood loss Obstructive sleep apnea syndrome Nonhealing nonsurgical wound with fat layer exposed Wound of skin Osteopenia Chronic renal disease, stage 3, moderately decreased glomerular filtration rate (GFR) between 30-59 mL/min/1.73 square meter Anemia Anemia Major depressive disorder, recurrent episode Malaise and fatigue Hyperlipidemia associated with type 2 diabetes mellitus Vision problems Pancreatitis Diabetes type 2, controlled Cataracts, bilateral Bone fracture Back problem Home Medications ?Medication ?Instructions ?Recorded ?Last Taken ?Type atorvastatin 40 mg tablet 40 mg PO QHS Cholesterol 01/06/20 02/05/23 History ferrous fumarate-vit C-vit B12 1 gummy PO/SL DAILY SUPPLEMENT 01/25/23 02/05/23 History cholecalciferol (vitamin D3) 10 20 mcg PO DAILY vitamin 08/19/23 Unknown History mcg (400 unit) tablet insulin degludec 100 unit/mL (3 8 unit subcut QHS diabtetes 11/30/23 11/02/24 10:00 History mL) subcutaneous pen (Tresiba 4 unit FlexTouch U-100 insulin) potassium chloride 20 mEq 40 meq PO DAILY SUPPLEMENT 06/06/24 Unknown History tablet,extended release(part/cryst) buspirone 15 mg tablet 15 mg PO BID mood stabilizer 08/29/24 Unknown History mirtazapine 15 mg tablet 15 mg PO QHS antidepressant 08/29/24 Unknown History olanzapine 20 mg tablet 20 mg PO QHS 08/29/24 Unknown History insulin aspart U-100 100 unit/mL 15 unit (0.15 mL) subcut TID 09/12/24 Unknown Rx (3 mL) subcutaneous pen (Novolog diabetes #40.5 mL FlexPen U-100 Insulin aspart) insulin lispro 100 unit/mL 1 sliding scale dose subcut TID 10/23/24 Unknown History subcutaneous pen high sugar levothyroxine 88 mcg tablet 88 mcg PO DAILY thyriod 10/23/24 11/02/24 History lamotrigine 25 mg tablet 50 mg (2 x 25 mg) PO QDAY seizures 01/30/25 Unknown Rx 30 days #180 tabs Allergy/AdvReac Type Severity Reaction Status Date / Time adhesive tape AdvReac Intermediate Rash Verified 04/24/25 13:58 codeine AdvReac Intermediate Dizziness Verified 04/24/25 13:58 Family History Mother Diabetes Father Heart disease Hypertension Surgical History History of breast lump/mass excision S/P hemodialysis catheter insertion Hx of cataract surgery S/P partial hysterectomy Hx of appendectomy Hx of cholecystectomy Status post ORIF of fracture of ankle Social History household members: spouse Smoking Status: Never smoker second hand exposure: No alcohol intake: never substance use type: does not use salas/evangelical: Episcopalian seatbelt use: always do you feel safe at home: Yes Review of Systems (Anesthesia) ROS Narrative System reviewed and no additional complaints, except as documented. Physical Exam Const alert, oriented x3 and average body habitus Resp normal respiratory effort, normal air movement and clear to auscultation bilaterally Cardio regular rate, regular rhythm, no murmurs and diaphoretic
--- NOTE | 2025-04-25 09:00 | FEM_PTH ---
PATIENT: LA DORMAN LOC: [facility] U#:[id number] AGE/SX: 69/F [place] [facility] [place]: Dr. Domingo Ann MD : 1955 BED: 1 DIS: 04/27/2025 SPEC #: [id number] RECD: 04/25/25 12:49 STATUS: SONNY ANDREW #: [id number] NIKHIL: 04/25/25 09:[address]: Omer Monterroso DEPT: SURGICAL PATHOLOGY RECD BY: Fritz Sharma ENTERED: 04/25/25 14:01 SP TYPE: FEM HEAD OTHR DR: MD Dr. Bob Molina DO Dr. Tai Chi Kwok, MD Tissues: A - Femoral region, NOS Procedures: Decalcification bone/plaque Surgery Specimen Level V HEADER OPERATION: Hemiarthroplasty, hip, cemented PRE-OP DIAGNOSIS: Closed displaced fracture of right femoral neck TISSUE SUBMITTED: A- Femoral head, right hip MICROSCOPIC DIAGNOSIS A. Right femoral head, hemiarthroplasty: * Osteopenia with areas of marrow hemorrhage, consistent with a fracture, benign MICROSCOPIC DESCRIPTION Slides are reviewed. GROSS DESCRIPTION A. Received in formalin in a container labeled with the patient's name, date of , and femoral head R hip is a 4.3 x 4.3 x 4.2 cm femoral head with minimal attached femoral neck. The margin is shaggy and hemorrhagic. The cartilaginous surface is smooth. Sections have firm and hemorrhagic surfaces. Received in the same container are multiple red and hemorrhagic fragments of firm bone measuring 2.8 x 2.8 x 1.7 cm in aggregate. Sections have hemorrhagic and firm surfaces. Mother Superior sections are submitted in A1 following decalcification. [facility] 04-25-2025 CPT:20295,12202
[2025-04-25 09:03] LABS: Bedside Glucose 152 mg/dL (74-106)
[2025-04-25] MEDS: Cefazolin 2 GM in 0.9% Normal Saline (100mL Bag) 100 ML IV ×2 (09:06→16:59)
[2025-04-25] MEDS: TRANEXAMIC ACID 2,000 MG in 0.9% Normal Saline (100mL Bag) 100 ML 280 MG IV (09:21)
--- NOTE | 2025-04-25 11:13 | PCM.POST.ANE ---
Anesthesia: Postop Eval I Current Vital Signs Temperature: 97.2 F Pulse Rate: 64 Blood Pressure: 122/44 Respiratory Rate: 16 Pulse Ox: 100 Oxygen Delivery Method: Simple Mask Oxygen Flow Rate (L/min): 6 Assessment Airway patent: Yes Spontaneous unlabored respirations: Yes Mental status: Awake and Calm nausea: No Vomiting: No Anesthesia Complication: No Fluid Hydration Crystalloid volume administer (ml): 1,000 Total IV fluid infused: 1,000 Progress Note Anesthesia document: Postop Eval 1 completed: Yes
--- NOTE | 2025-04-25 11:21 | OP.PCM_ITS ---
Operative Report (Standard) Operative Information Date of Procedure: 04/25/25 Pre-Operative Diagnosis: Right femoral neck fracture displaced Post-Operative Diagnosis: Same Surgery/Procedure Performed: Right hip hemiarthroplasty cemented marble setter helper: Yes Relocation Coordinator: Yanick Moran Tasks completed by sales assistants and salespersons: Implanting device and Retracting Type of Anesthesia: General RN Documented Start/Stop Times: Operation Date: 04/25/25 09:00 Case Time Into Pre-Op 04/25/25 08:10 Out of Pre-Op 04/25/25 08:57 Anesthesia Start 04/25/25 09:00 Into Room 04/25/25 09:00 Procedure Start 04/25/25 09:33 Procedure End 04/25/25 11:00 Anesthesia End 04/25/25 11:09 Out of Room 04/25/25 11:09 Into Recovery 04/25/25 11:13 Procedure Start Time: 09:33 Procedure Stop Time: 11:00 Select all DRAINS/GRAFTS/IMPLANTS that apply: Prosthetic device Prosthetic device details: Melissa cemented bipolar hemiarthroplasty Estimated Blood Loss: 125 Specimen collected: Yes Description of specimen(s) removed: Femoral head Description of surgery: Preoperative diagnosis: Right hip femoral neck fracture displaced Postoperative diagnosis: Same Procedure: Right hip hemiarthroplasty Implants: Melissa cemented stem size 2 127 degree neck angle +8 neck head length 45 mm outer diameter bipolar head Anesthesia: General EBL: 125 cc Complications: None Condition: Stable to PACU Indication for procedure: 69-year-old female patient sustaining a right displaced femoral neck fracture after ground-level fall. plans for definitive hemiarthroplasty were discussed including risks benefits and alternatives of the procedure were reviewed with the patient including risk of bleeding infection nerve artery tissue damage need for further surgery continue pain postoperative hip precaution restrictions leg length discrepancy and dislocation. Procedure: Patient was met in the preoperative holding area once again the operative extremity was identified by both patient and physician and was marked. Patient was met by anesthesia and brought to the operating room where anesthesia was started . The patient was then positioned in the lateral dec ubitus position on a well-padded pegboard with an axillary roll. All bony prominences were checked and padded. The patient was prepped and draped in the usual sterile fashion. A timeout was called to ensure the proper patient procedure and extremity were being contemplated. Anatomic landmarks were palpated and marked for a standard posterior lateral approach. A timeout was called to ensure the proper patient procedure and extremity were being contemplated. A 10 blade scalpel was used to make a posterior incision through the skin and subcutaneous tissue. In retractors were used and electrocautery was used to maintain meticulous hemostasis and dissect full-thickness flaps until the gluteal fascia was reached. The gluteal fascia was incised in line with the gluteal fibers. The bursal tissue was then freed from the underside and a Charnley retractor was placed. The fatpad was elevated off of the external rotators with electrocautery and the external rotators were dissected off of the greater trochanter including the piriformis and were tagged with #1 Ethibond for later repair. The joint capsule opened with posterior trapdoor technique. A femoral neck cutting guide was used to kasey the neck with a Bovie and an oscillating saw was used to complete the femoral neck cut. the fracture was visualized and with the use of a corkscrew and a skid the femoral head was removed and sized. We then trialed with the matching sizes . Hohmann was placed around the lesser trochanter. A femoral elevator was used. As well as a pointed wide Hohmann around the lesser trochanter and a Hohmann to help retract the gluteus medius. A box chisel was used to remove excess lateral neck followed by a canal finder and a lateralizing reamer. This was followed by sequential broaches. Attention was made of the version within the canal. Once the final broach was seated we then trialed and reduced the hip it was determined that a 127 degree neck angle with a +8 neck length was the appropriate size. We then checked stability with shuck testing as well as flexion and interminal rotation then proceeded with hip extension and checked leg lengths at the knees and heels. At this point trials were removed. The canal was thoroughly irrigated with the pulse lavage, centralizer was measured , a cement restrictor was placed. a suction tampon was inserted while the cement was mixed cement gun was used to fill the canal with the use of pressurarizer followed by the insertion of the femoral stem was inserted. We held this in place until the cemented fully hardened, we re-trialed and then proceeded to impact the femoral head onto the Rogerio taper. We then surgically reduce the hip check stability again and leg lengths and were satisfied. irricept rinse was allowed to sit for 1 minutes while everyone changed their gloves. Thorough irrigation was performed. Followed by closure of the external rotators with #2 FiberWire followed by closure of gluteal fascia with #1 Ethibond. 0 Vicryl fat stitches and 2-0 Vicryl subcutaneous stitches and romina in the skin. Dressing was applied in the form of Mepilex Ag dressing and an abduction pillow was placed. Patient tolerated the procedure well there was no intraoperative complications all counts were correct and the patient was brought back to the PACU in stable condition Surgical Findings: Femoral neck fracture Complications Complications: No
--- NOTE | 2025-04-25 11:28 | RAD_ITS ---
PROCEDURE: HIP MIN 2 VIEWS (PORTABLE) 04/25/2025 REASON FOR EXAM: POST OP TECHNIQUE: One (1) view of the right hip COMPARISON: Prior study dated April 16, 2025. FINDINGS: The patient is status post right total hip replacement. There is good alignment. Postoperative soft tissue changes. RAD/Hip Min 2 Views (Portable) IMPRESSION: Status post right total hip replacement. There is good alignment. Postoperative soft tissue changes. Reading Location: [facility]
--- NOTE | 2025-04-25 14:40 | CASEMGMT ---
CARLSO LIRIANO Assessment: Face to Face with pt for initial transition planning/care coordination assessment. RN HERI introduced self and role at [facility], pt voices understanding and consents to assessment. Pt is O x3 and answers all questions appropriately at this time. Pt lying in bed in no distress with and nurse at bedside. Pt agreeable to asking questions as pt just had OR and is drowsy. Care providers, pharmacy, and demographics verified/updated. Admitting Dx: R femoral neck fracture Strata Score: 2 PCP:Adriel Specialists:Bill, pod; Roverto, nephro; Latanya, heme; Bernice, mental health; Tomy, endo Preferred Pharmacy: [facility] [place] Insurance: [employer] Prescription Benefit: yes LNOK: Hero Rivera, ; Lilian Kitchen, dtr Living Arrangements: Pt lives with in a two story home with FFSU and a ramp to enter. Pt reports he assists pt with bathing and dressing as well as laundry, groceries and meals. He denies concerns at home. Transportation: Pt transports pt to medical appts. DME:walk in shower, HHS, shower bench, BSC, w/c, FWW, grab bars in bathroom, CGM and insulin with sufficient supplies HHC/SNF: Pt has had [facility] in the past and has been to [facility] and [facility] Pt states no concerns with going home at time of dc. Pt prefers to go home with [facility] if she is safe to do so. Pt denies need for a list of other options. Therapy to eval and make recommendations. Pt states no further concerns/needs. CM to follow. Advised pt to ask CM if any further questions/concerns/needs arise, voices understanding. Pt Goal: Home with [facility] Plan: TBD pending therapy pablito Perez RN, CM
--- NOTE | 2025-04-25 15:11 | POSTOPAN2_ITS ---
Anesthesia Postop Eval I Sum Postop Eval Completion status Anesthesia document: Postop Eval 1 completed: Yes Anesthesia Postop Eval I Summary Anesthesia Postop Eval I Summary: Anesthesia Postop Eval I: Assessment Summary Airway patent Yes 04/25/25 11:15 VALET CASHIER.[email or web address] Spontaneous unlabored Yes 04/25/25 11:15 VALET CASHIER.CELI respirations Mental status Awake,Calm 04/25/25 11:15 VALET CASHIER.SKOBY nausea No 04/25/25 11:15 VALET CASHIER.SKOBY Vomiting No 04/25/25 11:15 VALET CASHIER.ARVINDOBPeng Anesthesia Postop Eval I: Fluid Summary Crystalloid volume administer 1,000 04/25/25 11:15 VALET CASHIER.SKOBY (ml) Colloids volume administered ( ml) Blood Product volume administered (ml) Total IV fluid infused 1,000 04/25/25 11:15 VALET CASHIER.ARVINDOBPeng Anesthesia Postop Eval I: Summary Notes Anesthesia Complication No 04/25/25 11:15 VALET CASHIER.CELI Anesthesia Complication Comment: Post-operative progress note Anesthesia: Postop Eval II Evaluation Mental status: Awake Pain Level: 0 nausea: No Vomiting: No Complications Anesthesia Complication: No
--- NOTE | 2025-04-25 15:11 | PCM.POSTANE2 ---
Anesthesia Postop Eval I Sum Postop Eval Completion status Anesthesia document: Postop Eval 1 completed: Yes Anesthesia Postop Eval I Summary Anesthesia Postop Eval I Summary: Anesthesia Postop Eval I: Assessment Summary Airway patent Yes 04/25/25 11:15 SUPERINTENDENT DRILLING.SKOBY Spontaneous unlabored Yes 04/25/25 11:15 SUPERINTENDENT DRILLING.CELI respirations Mental status Awake,Calm 04/25/25 11:15 SUPERINTENDENT DRILLING.SKOBY nausea No 04/25/25 11:15 SUPERINTENDENT DRILLING.SKOBY Vomiting No 04/25/25 11:15 SUPERINTENDENT DRILLING.ARVINDOBPeng Anesthesia Postop Eval I: Fluid Summary Crystalloid volume administer 1,000 04/25/25 11:15 SUPERINTENDENT DRILLING.SKOBY (ml) Colloids volume administered ( ml) Blood Product volume administered (ml) Total IV fluid infused 1,000 04/25/25 11:15 SUPERINTENDENT DRILLING.ARVINDOBPeng Anesthesia Postop Eval I: Summary Notes Anesthesia Complication No 04/25/25 11:15 SUPERINTENDENT DRILLING.CELI Anesthesia Complication Comment: Post-operative progress note Anesthesia: Postop Eval II Evaluation Mental status: Awake Pain Level: 0 nausea: No Vomiting: No Complications Anesthesia Complication: No
--- NOTE | 2025-04-25 15:17 | CASEMGMT ---
Discharge Planning A list of?SNF providers including quality and resource use data and consistent with the patient's preferred geographic region, medical needs, and insurance network was created in [employer] Guide.? This list was provided to the SW. Dang Galarza Discharge Planning Asst.
[2025-04-25] MEDS: 0.9% Normal Saline (1000mL) 1,000 ML 125 ML IV (16:59)
[2025-04-25 17:24] LABS: Bedside Glucose 125 mg/dL (74-106)
[2025-04-25] MEDS: Mirtazapine 15 MG Tablet PO (22:27)
[2025-04-25] MEDS: Atorvastatin Calcium 40 MG Tablet PO (22:27)
[2025-04-25] MEDS: Senna/Docusate Sodium 1 Tablet 2 TABLET PO (22:27)
[2025-04-25] MEDS: Insulin Glargine-YFGN 100 UNIT/ML Pen 8 UNIT SC (22:27)
[2025-04-25] MEDS: busPIRone 15 MG TABLET PO (22:27)
[2025-04-25] MEDS: OLANZapine 10 MG Tablet 20 MG PO (22:28)
[2025-04-25 23:45] LABS: Bedside Glucose 149 mg/dL (74-106)
[2025-04-26] VITALS (9 sets, daily range): BP systolic 113–136; BP diastolic 48–67; PULSE 80–95; RESP 12–16; TEMP 36.4–37.2; O2SAT 94–98; BMI 26.8
[2025-04-26] MEDS: Cefazolin 2 GM in 0.9% Normal Saline (100mL Bag) 100 ML IV ×3 (01:15→16:57)
[2025-04-26] MEDS: 0.9% Normal Saline (1000mL) 1,000 ML 125 ML IV (01:16)
[2025-04-26] MEDS: Nystatin Powder 15gm Bottle 1 APPLIC TOPICAL ×2 (01:16→10:00)
[2025-04-26 05:30] LABS: Hemoglobin 8.9 g/dL (12.0-15.0); Mean Corpuscular Hgb 30.5 pg (27.0-32.0); Mean Corpuscular Volume 92.5 fL (81-99); Mean Platelet Vol. 10.7 fl (6.2-12.0); Platelet Count 127 K/mm3 (150-450); RBC Distribution Width CV 13.3 % (11.6-14.6); RBC Distribution Width SD 45.4 fl (35.1-43.9); Red Blood Count 2.92 M/mm3 (4.2-5.4); White Blood Count 8.5 K/mm3 (4.4-11.0)
[2025-04-26 06:01] LABS: Anion Gap 8 (5-15); BUN 18 mg/dL (4-19); BUN/Creat Ratio 16.2 RATIO (10-20); Calcium,Total 8.1 mg/dL (7.6-11.0); Carbon Dioxide 25.6 mmol/L (21.0-32.0); Chloride 103 mmol/L (98-108); Creatinine, Serum 1.08 mg/dL (0.70-1.20); EST Glomerular Filtration Rate 55 (>60); Estimated Creatinine Clearance 41.06 ml/min (50-250); Glucose 109 mg/dL (70-99); Potassium 3.7 mmol/L (3.3-5.1); Sodium Level 137 mmol/L (133-145)
[2025-04-26] MEDS: Levothyroxine 88 MCG Tablet PO (06:55)
[2025-04-26 07:28] LABS: Bedside Glucose 106 mg/dL (74-106)
--- NOTE | 2025-04-26 07:30 | PCM.PN.ORT ---
Subjective Subjective Seen and examined. Pain manageable. Denies fever chills nausea vomit shortness of breath or chest pain she does admit to a sore throat. Objective Data Objective Data Vital Signs: Vital Signs Temp Pulse Resp BP Pulse Ox O2 Del Method O2 Flow Rate 98.8 F 87 15 135/61 H 97 Non-Rebreather @ 15L/min and High Flow 2 04/26/25 04:06 04/26/25 04:06 04/26/25 04:06 04/26/25 04:06 04/26/25 04:06 04/26/25 04:06 04/26/25 01:21 Oxygen Flow Rate (L/min) 2 Oxygen Delivery Method Non-Rebreather @ 15L/min Weight: 141 lb 15.996 oz Body Mass Index (BMI) 26.8 Intake & Output: Intake and Output for Last 24 Hours 04/24/25 04/25/25 04/26/25 23:59 23:59 23:59 Intake Total 1230 / 1380 1260 / 1260 Output Total 600 / 900 700 / 700 Balance 630 / 480 560 / 560 Lab / Micro Data 04/26/25 05:06 04/26/25 05:06 Labs: Laboratory Results - last 24 hr 04/25/25 08:41: POC Glucose 152 H 04/25/25 17:05: POC Glucose 125 H 04/25/25 22:24: POC Glucose 149 H 04/26/25 05:06: WBC 8.5, RBC 2.92 L, Hgb 8.9 L, Hct 27.0 L, MCV 92.5, MCH 30.5, MCHC 33.0, RDW Std Deviation 45.4 H, RDW Coeff of Joe 13.3, Plt Count 127 L, MPV 10.7, Sodium 137, Potassium 3.7, Chloride 103, Carbon Dioxide 25.6, Anion Gap 8, BUN 18, Creatinine 1.08, Estim Creat Clear Calc 41.06 L, Est GFR (MDRD) Non-Af 55 L, BUN/Creatinine Ratio 16.2, Glucose 109 H, Calcium 8.1 04/26/25 06:54: POC Glucose 106 Radiography Diagnostic Testing: Radiology Impression Hip X-Ray 04/25/25 11:28 IMPRESSION: Status post right total hip replacement. There is good alignment. Postoperative soft tissue changes. Reading Location: [id number] Physical Exam Const alert, oriented x3 and no apparent distress General Appearance: cooperative Extremity Extremity Narrative: Right hip dressing clean dry intact compartments soft neurovascular intact EHL tibialis anterior gastrocsoleus intact sensation light touch palpable pedal pulse Assessment & Plan Assessment/Plan (1) Closed displaced fracture of right femoral neck: PLAN: Plan Postop day #1 right hip bipolar cemented hemiarthroplasty PT OT weightbearing as tolerated with a precautions May DC abduction pillow after first physical therapy session DVT prophylaxis SCDs ALLEN hose Eliquis 2.5 mg twice daily recommend 35 days postop Dressing to be left undisturbed for 7 days postop then removed and incision should be cleaned daily with antibacterial soap and warm water daily replace with dry dressing daily at that point until no drainage for 2 consecutive days then may leave open to air. Patient should follow-up in the office in 2 weeks for staple removal and wound check Will order Cepacol drops for her sore throat.
--- NOTE | 2025-04-26 07:31 | PCM.PN.HOSP ---
Reason for Visit Reason for Visit: Diagnoses Fracture of unspecified part of neck of right femur, initial encounter for closed fracture (04/24/25) Subjective Subjective Patient underwent right hip hemiarthroplasty cemented on 04/25/2025 on account of displaced right femoral neck fracture. Seen this a.m. patient pain remains tolerable. Scheduled to undergo PT OT eval Objective Data Objective Data Vital Signs: Vital Signs Temp Pulse Resp BP Pulse Ox O2 Del Method O2 Flow Rate 98.8 F 87 15 135/61 H 97 Non-Rebreather @ 15L/min and High Flow 2 04/26/25 04:06 04/26/25 04:06 04/26/25 04:06 04/26/25 04:06 04/26/25 04:06 04/26/25 04:06 04/26/25 01:21 Oxygen Flow Rate (L/min) 2 Oxygen Delivery Method Non-Rebreather @ 15L/min Weight: 64.41 kg Body Mass Index (BMI) 26.8 Intake & Output: Intake and Output for Last 24 Hours 04/24/25 04/25/25 04/26/25 23:59 23:59 23:59 Intake Total 1230 / 1380 1260 / 1260 Output Total 600 / 900 700 / 700 Balance 630 / 480 560 / 560 Lab / Micro Data 04/26/25 05:06 04/26/25 05:06 Labs: Laboratory Results - last 24 hr 04/25/25 08:41: POC Glucose 152 H 04/25/25 17:05: POC Glucose 125 H 04/25/25 22:24: POC Glucose 149 H 04/26/25 05:06: WBC 8.5, RBC 2.92 L, Hgb 8.9 L, Hct 27.0 L, MCV 92.5, MCH 30.5, MCHC 33.0, RDW Std Deviation 45.4 H, RDW Coeff of Joe 13.3, Plt Count 127 L, MPV 10.7, Sodium 137, Potassium 3.7, Chloride 103, Carbon Dioxide 25.6, Anion Gap 8, BUN 18, Creatinine 1.08, Estim Creat Clear Calc 41.06 L, Est GFR (MDRD) Non-Af 55 L, BUN/Creatinine Ratio 16.2, Glucose 109 H, Calcium 8.1 04/26/25 06:54: POC Glucose 106 Radiography Diagnostic Testing: Radiology Impression Hip X-Ray 04/25/25 11:28 IMPRESSION: Status post right total hip replacement. There is good alignment. Postoperative soft tissue changes. Reading Location: [facility] Physical Exam Narrative GENERAL: cooperative HEENT: Atraumatic; normocephalic EYES; Anicteric, Normal Conjunctiva NECK; supple, normal thyroid, RESPIRATORY: Diminished to auscultation CARDIOVASCULAR: Regular S1 S2, GI: soft, normoactive bowel sounds, : No Renal angle tenderness; EXTREMITIES: No edema, no clubbing, MUSCULOSKELETAL: no muscle wasting NEURO: Awake; no lateralizing signs. SKIN: No Rash PSYCH; Flat affect Assessment & Plan Assessment/Plan (1) Closed displaced fracture of right femoral neck: PLAN: Plan Patient is a 69-year-old lady admitted following a fall sustaining right femoral neck fracture. Admitted to the regular nursing floor with consultation placed to orthopedic surgery 1. Fall with displaced fracture of the right femoral neck ? Patient has been admitted to regular nursing floor. Initial treatment with immobilization of the affected extremity pain management instituted. Consult was placed to orthopedic surgery. Patient initially preop assessment as documented by admitting physician 04/26/2025;Patient underwent right hip hemiarthroplasty cemented on 04/25/2025 on account of displaced right femoral neck fracture. Seen this a.m. patient pain remains tolerable. Scheduled to undergo PT OT eval 2. Diabetes mellitus type 2 with complications including diabetic nephropathy ? Patient is on long-acting insulin plan is to initiate following patient surgical intervention. Also placed on Accu-Cheks ACHS with sliding scale coverage 3. Chronic kidney disease stage IIIa As a result of diabetic nephropathy. Kidney function at baseline 4. Hypothyroidism - Patient is on levothyroxine home dose continued 5. Seizure disorder ? Patient is on lamotrigine continued 6. Dyslipidemia -Patient is on statin therapy, continued at home dose 7. Anemia ? Secondary to chronic disorder monitoring H&H and transfuse if patient becomes symptomatic or hemoglobin falls below 7 8. DVT prophylaxis ? Plan is to initiate chemoprophylaxis following patient surgical intervention ? 04/16/2025; patient is being started on apixaban 2.5 mg for DVT prophylaxis 9. Physical deconditioning ? Requested for PT OT eval and social service manager to assist with discharge planning Charges/Coding Visit Charges Inpatient E&M: 73179 Subs Hosp L2
--- NOTE | 2025-04-26 09:21 | CASEMGMT ---
Discharge Planning Referral sent to [facility]. Dang Galarza DC Planning Asst.
--- NOTE | 2025-04-26 09:33 | CASEMGMT ---
Social Work SW met with pt to discuss discharge plan. Pt states she did work with therapy and does not feel like she is able to return home at this time. SW spoke with pt regarding short term SNF placement and pt is agreeable. A list of SNF providers including quality and resource use data and consistent with the patient?s preferred geographic region, medical needs, and insurance network were provided from the [facility] Guide. SW reviewed list with pt and pt preferred provider is 1. Marie Doshi or 2. Ed Carlson. Pt states she will update her when he comes in today. DC fiscal assistant updated and will send referral. Plan: [facility], pending acceptance DREW Hammond
[2025-04-26] MEDS: Calcium Carbonate 500 MG Tablet PO ×3 (10:00→16:56)
[2025-04-26] MEDS: busPIRone 15 MG TABLET PO ×2 (10:00→22:04)
[2025-04-26] MEDS: lamoTRIgine 25 MG Tablet 50 MG PO (10:00)
[2025-04-26] MEDS: Cholecalciferol (VIT D3) 25 MCG TABLET (1,000 UNITS) PO (10:01)
[2025-04-26] MEDS: Senna/Docusate Sodium 1 Tablet 2 TABLET PO (10:01)
[2025-04-26] MEDS: APIXABAN 2.5 MG TABLET (WCH) PO ×2 (10:02→22:04)
--- NOTE | 2025-04-26 11:01 | CASEMGMT ---
[facility] has accepted and will have bed availability early afternoon on Tuesday (04/27). SW updated. Dang Galarza DC Planning Asst.
[2025-04-26 14:19] LABS: Bedside Glucose 201 mg/dL (74-106)
[2025-04-26] MEDS: Insulin Lispro 100 UNIT/ML INSULN.PEN SC ×2 (16:55→21:56)
[2025-04-26] MEDS: Atorvastatin Calcium 40 MG Tablet PO (22:04)
[2025-04-26] MEDS: Insulin Glargine-YFGN 100 UNIT/ML Pen 8 UNIT SC (22:04)
[2025-04-26] MEDS: Mirtazapine 15 MG Tablet PO (22:04)
[2025-04-26] MEDS: OLANZapine 10 MG Tablet 20 MG PO (22:04)
[2025-04-26] MEDS: Acetaminophen 325 MG Tablet 650 MG PO (22:07)
[2025-04-26] MEDS: BENZOCAINE/MENTHOL 1 LOZENGE MUCOUS MEM (22:10)
[2025-04-27] MEDS: Acetaminophen 325 MG Tablet 650 MG PO (06:01)
[2025-04-27] MEDS: Levothyroxine 88 MCG Tablet PO (06:01)
[2025-04-27 06:11] LABS: Bedside Glucose 171 mg/dL (74-106)
[2025-04-27 06:11] LABS: Bedside Glucose 181 mg/dL (74-106)
[2025-04-27 06:40] LABS: Hematocrit 22.1 % (37-47); Hemoglobin 7.4 g/dL (12.0-15.0); Mean Corp Hgb Conc 33.5 g/dL (32-36); Mean Corpuscular Hgb 31.1 pg (27.0-32.0); Mean Corpuscular Volume 92.9 fL (81-99); Mean Platelet Vol. 11.5 fl (6.2-12.0); Platelet Count 120 K/mm3 (150-450); RBC Distribution Width CV 13.2 % (11.6-14.6); Red Blood Count 2.38 M/mm3 (4.2-5.4); White Blood Count 8.4 K/mm3 (4.4-11.0)
[2025-04-27 07:08] VITALS: BP 118/59; PULSE 89; RESP 16; TEMP 36.6; O2SAT 94
[2025-04-27 07:18] LABS: Bedside Glucose 144 mg/dL (74-106)
--- NOTE | 2025-04-27 07:33 | TREXTCAR_ITS ---
Diet Diet Order/Speech Therapy: INPATIENT Hospital Diet / Speech Therapy Order(s) 04/25/25 12:59 Diet: Consistent Carb - Calorie Controlled How many daily calories?: 1999 calorie Routine Orders/Code Status Code Status: Full Code DC O2, CPAP, BIPAP needs Home O2 Discharge instructions: No Wound(s) RIGHT HIP, LATERAL: Wound Type: Surgical Incision elbow: Wound Type: Abrasion Therapies Physical Therapy: Eval and Treat Occupational Therapy: Eval and Treat Problem/Diagnosis (1) Closed displaced fracture of right femoral neck: Status: Acute Code(s): S72.001A - Fracture of unspecified part of neck of right femur, initial encounter for closed fracture Plan Patient is a 69-year-old lady admitted following a fall sustaining right femoral neck fracture. Admitted to the regular nursing floor with consultation placed to orthopedic surgery 1. Fall with displaced fracture of the right femoral neck ? Patient has been admitted to regular nursing floor. Initial treatment with immobilization of the affected extremity pain management instituted. Consult was placed to orthopedic surgery. Patient initially preop assessment as documented by admitting physician 04/26/2025;Patient underwent right hip hemiarthroplasty cemented on 04/25/2025 on account of displaced right femoral neck fracture. Seen this a.m. patient pain remains tolerable. Scheduled to undergo PT OT eval ? Patient was discharged to snf facility to continue with her recuperation 2. Diabetes mellitus type 2 with complications including diabetic nephropathy ? Patient is on long-acting insulin plan is to initiate following patient surgical intervention. Also placed on Accu-Cheks ACHS with sliding scale coverage 3. Chronic kidney disease stage IIIa As a result of diabetic nephropathy. Kidney function at baseline 4. Hypothyroidism - Patient is on levothyroxine home dose continued 5. Seizure disorder ? Patient is on lamotrigine continued 6. Dyslipidemia -Patient is on statin therapy, continued at home dose 7. Anemia ? Secondary to chronic disorder monitoring H&H and transfuse if patient becomes symptomatic or hemoglobin falls below 7 8. DVT prophylaxis ? Plan is to initiate chemoprophylaxis following patient surgical intervention ? 04/16/2025; patient is being started on apixaban 2.5 mg for DVT prophylaxis 9. Physical deconditioning ? Requested for PT OT eval and forensic social worker to assist with discharge planning Allergies/Procedures Done in Hospital Allergies adhesive tape Adverse Reaction (Intermediate, Verified 04/24/25 13:58) Rash codeine Adverse Reaction (Intermediate, Verified 04/24/25 13:58) Dizziness Type of Care/Length of Stay Estimated LOS: Convalescent Care Less Than 30 days Type of Care Needed: Skilled Rehab Potential: Good Prognosis: Good Additional Orders/Day of Discharge Day of Discharge: 04/27/25 Discharge Plan Admission Admit Date/Time: 04/24/25 16:13 Attending Provider: Domingo Ann Primary Care Provider: Crow Morel Chi Consulting Providers: Omer Monterroso; Bob Eisenberg Discharge Orders/Prescriptions Prescriptions: New acetaminophen 325 mg Tablet 650 mg PO Q6H PRN PRN (Reason: Pain 1-10 Or Fever >100.7) Qty: 0 0RF oxycodone 5 mg Tablet 5 mg PO Q4H PRN PRN (Reason: Pain Score 6-10 Or Pre Pt/Ot) 3 Days Qty: 14 0RF Eliquis 5 mg Tablet 2.5 mg PO BID 30 Days Qty: 0 0RF sennosides-docusate sodium [Stimulant Laxative Plus] 8.6-50 mg Tablet 2 tab PO BID Qty: 0 0RF Continued cholecalciferol (vitamin D3) 10 mcg (400 unit) tablet 20 mcg PO DAILY insulin aspart U-100 [Novolog FlexPen U-100 Insulin] 100 unit/mL (3 mL) insulin pen 15 unit subcut TID Qty: 40.5 1RF olanzapine 20 mg tablet 20 mg PO QHS mirtazapine 15 mg tablet 15 mg PO QHS buspirone 15 mg tablet 15 mg PO BID lamotrigine 25 mg tablet 50 mg PO QDAY 30 Days Qty: 180 1RF Rx Instructions: take 2 tablets daily atorvastatin 40 MG tablet 40 mg PO QHS potassium chloride 20 mEq tablet,ER particles/crystals 40 meq PO DAILY ferrous fumarate-vit C-vit B12 1 gummy PO/SL DAILY insulin degludec [Tresiba FlexTouch U-100] 100 unit/mL (3 mL) insulin pen 8 unit SUBCUT QHS Patient Comments: INJECT 30 UNITS SUBCUTANEOUSLY DAILY insulin lispro 100 unit/mL insulin pen 1 sliding scale dose subcut TID levothyroxine 88 mcg tablet 88 mcg PO DAILY Referrals / Follow Up: Crow Morel Chi, MD [Primary Care Provider] - Disposition Disposition (needs filled in before D/C Order can be placed): Intermediate Facility
--- NOTE | 2025-04-27 07:34 | PCM.DC.SUM ---
Providers Date of Admission: 04/24/25 Date of Discharge: 04/27/25 Primary Care Physician: Dr. Crow Morel MD Consultations 04/24/25 16:36 Consult: Orthopedics Routine Consulting Provider: Omer Monterroso Reason for Consult: right hip fracture EMERGENT Consult: No MD Notified: Yes Date Notified: 04/24/25 Time Notified: 16:18 Method of Notification: ED Physician Initiated Reason For Visit: RT FEMORAL NECK FRACTURE Diagnosis Discharge Diagnosis (1) Closed displaced fracture of right femoral neck: Status: Acute Code(s): S72.001A - Fracture of unspecified part of neck of right femur, initial encounter for closed fracture Plan Patient is a 69-year-old lady admitted following a fall sustaining right femoral neck fracture. Admitted to the regular nursing floor with consultation placed to orthopedic surgery 1. Fall with displaced fracture of the right femoral neck ? Patient has been admitted to regular nursing floor. Initial treatment with immobilization of the affected extremity pain management instituted. Consult was placed to orthopedic surgery. Patient initially preop assessment as documented by admitting physician 04/26/2025;Patient underwent right hip hemiarthroplasty cemented on 04/25/2025 on account of displaced right femoral neck fracture. Seen this a.m. patient pain remains tolerable. Scheduled to undergo PT OT eval ? Patient was discharged to intermediate facility to continue with her recuperation 2. Diabetes mellitus type 2 with complications including diabetic nephropathy ? Patient is on long-acting insulin plan is to initiate following patient surgical intervention. Also placed on Accu-Cheks ACHS with sliding scale coverage 3. Chronic kidney disease stage IIIa As a result of diabetic nephropathy. Kidney function at baseline 4. Hypothyroidism - Patient is on levothyroxine home dose continued 5. Seizure disorder ? Patient is on lamotrigine continued 6. Dyslipidemia -Patient is on statin therapy, continued at home dose 7. Anemia ? Secondary to chronic disorder monitoring H&H and transfuse if patient becomes symptomatic or hemoglobin falls below 7 8. DVT prophylaxis ? Plan is to initiate chemoprophylaxis following patient surgical intervention ? 04/16/2025; patient is being started on apixaban 2.5 mg for DVT prophylaxis 9. Physical deconditioning ? Requested for PT OT eval and high school social studies tutor to assist with discharge planning Medications at Discharge Home Medications atorvastatin 40 mg tablet 40 mg PO QHS Cholesterol 01/06/20 ferrous fumarate-vit C-vit B12 1 gummy PO/SL DAILY SUPPLEMENT 01/25/23 cholecalciferol (vitamin D3) 10 mcg (400 unit) tablet 20 mcg PO DAILY vitamin 08/19/23 insulin degludec 100 unit/mL (3 mL) subcutaneous pen (Tresiba FlexTouch U-100 insulin) 8 unit subcut QHS diabtetes 11/30/23 potassium chloride 20 mEq tablet,extended release(part/cryst) 40 meq PO DAILY SUPPLEMENT 06/06/24 buspirone 15 mg tablet 15 mg PO BID mood stabilizer 08/29/24 mirtazapine 15 mg tablet 15 mg PO QHS antidepressant 08/29/24 olanzapine 20 mg tablet 20 mg PO QHS 08/29/24 insulin aspart U-100 100 unit/mL (3 mL) subcutaneous pen (Novolog FlexPen U-100 Insulin aspart) 15 unit (0.15 mL) subcut TID diabetes #40.5 mL 09/12/24 insulin lispro 100 unit/mL subcutaneous pen 1 sliding scale dose subcut TID high sugar 10/23/24 levothyroxine 88 mcg tablet 88 mcg PO DAILY thyriod 10/23/24 lamotrigine 25 mg tablet 50 mg (2 x 25 mg) PO QDAY seizures 30 days #180 tabs 01/30/25 acetaminophen 325 mg tablet 650 mg (2 x 325 mg) PO Q6H PRN PRN Pain 1-10 Or Fever >100.7 #0 tabs 04/27/25 apixaban 5 mg tablet (Eliquis) 2.5 mg (1/2 x 5 mg) PO BID 30 days #0 tabs 04/27/25 oxycodone 5 mg tablet 5 mg PO Q4H PRN PRN Pain Score 6-10 Or Pre Pt/Ot 3 days #14 tabs 04/27/25 sennosides 8.6 mg-docusate sodium 50 mg tablet (Stimulant Laxative Plus) 2 tab PO BID #0 tabs 04/27/25 Hospital Course Summary of Care Provided Minutes Spent on Discharge: 32 Physical Exam Narrative GENERAL: cooperative HEENT: Atraumatic; normocephalic EYES; Anicteric, Normal Conjunctiva NECK; supple, normal thyroid, RESPIRATORY: Diminished to auscultation CARDIOVASCULAR: Regular S1 S2, GI: soft, normoactive bowel sounds, : No Renal angle tenderness; EXTREMITIES: No edema, no clubbing, MUSCULOSKELETAL: no muscle wasting NEURO: Awake; no lateralizing signs. SKIN: No Rash PSYCH; Flat affect Weight / BMI Weight Weight: 64.41 kg Body Mass Index (BMI) 26.8 ABG / Lab / Microbiology Data 04/27/25 05:40 04/26/25 05:06 Laboratory: Laboratory Results - last 24 hr 04/26/25 13:57: POC Glucose 201 H 04/26/25 16:53: POC Glucose 171 H 04/26/25 21:55: POC Glucose 181 H 04/27/25 05:40: WBC 8.4, RBC 2.38 L, Hgb 7.4 L, Hct 22.1 L, MCV 92.9, MCH 31.1, MCHC 33.5, RDW Std Deviation 45.0 H, RDW Coeff of Joe 13.2, Plt Count 120 L, MPV 11.5 04/27/25 06:00: POC Glucose 144 H D/C Instructions Discharge Diet: 1800 Calorie Control Diet Discharge Activity: Return to Normal Activity Call your doctor if you observe: Fever of 101 or Higher, Shortness of breath, Fainting spells and Chest pain DC O2, CPAP, BIPAP Needs Home O2 Discharge instructions: No Meaningful Use Info Meaningful Use Meaningful Use Diagnoses (Choose all that apply): None applicable Ischemic Stroke Statin Dosing Therapy Reference: STATIN DOSE THERAPY REFERENCE: * Patients > 75 years receive moderate or high dose statin therapy. * Patients 75 years or YOUNGER should receive HIGH intensity statin dose unless contraindicated. You will be required to document reason for non-treatment if statin daily dose does not meet guidelines. HIGH DOSE STATIN THERAPY DAILY Atorvastatin > than or = to 40 mg Rosuvastatin > than or = to 20 mg Amlodipine + Atorvastatin > than or = to 2.5/40 mg Ezetimibe + Simvastatin 10/80 mg Simvastatin 80mg Discharge Plan Admission Admit Date/Time: 04/24/25 16:13 Attending Provider: Domingo Ann Primary Care Provider: Crow Morel Chi Consulting Providers: Omer Monterroso; Bob Eisenberg Discharge Orders/Prescriptions Prescriptions: New acetaminophen 325 mg Tablet 650 mg PO Q6H PRN PRN (Reason: Pain 1-10 Or Fever >100.7) Qty: 0 0RF oxycodone 5 mg Tablet 5 mg PO Q4H PRN PRN (Reason: Pain Score 6-10 Or Pre Pt/Ot) 3 Days Qty: 14 0RF Eliquis 5 mg Tablet 2.5 mg PO BID 30 Days Qty: 0 0RF sennosides-docusate sodium [Stimulant Laxative Plus] 8.6-50 mg Tablet 2 tab PO BID Qty: 0 0RF Continued cholecalciferol (vitamin D3) 10 mcg (400 unit) tablet 20 mcg PO DAILY insulin aspart U-100 [Novolog FlexPen U-100 Insulin] 100 unit/mL (3 mL) insulin pen 15 unit subcut TID Qty: 40.5 1RF olanzapine 20 mg tablet 20 mg PO QHS mirtazapine 15 mg tablet 15 mg PO QHS buspirone 15 mg tablet 15 mg PO BID lamotrigine 25 mg tablet 50 mg PO QDAY 30 Days Qty: 180 1RF Rx Instructions: take 2 tablets daily atorvastatin 40 MG tablet 40 mg PO QHS potassium chloride 20 mEq tablet,ER particles/crystals 40 meq PO DAILY ferrous fumarate-vit C-vit B12 1 gummy PO/SL DAILY insulin degludec [Tresiba FlexTouch U-100] 100 unit/mL (3 mL) insulin pen 8 unit SUBCUT QHS Patient Comments: INJECT 30 UNITS SUBCUTANEOUSLY DAILY insulin lispro 100 unit/mL insulin pen 1 sliding scale dose subcut TID levothyroxine 88 mcg tablet 88 mcg PO DAILY Referrals / Follow Up: Crow Morel Chi, MD [Primary Care Provider] - Disposition Disposition (needs filled in before D/C Order can be placed): [facility] Facility Charges/Coding Visit Charges Inpatient E&M: 51098 Disch Hosp >30min
[2025-04-27 07:56] VITALS: BP 96/63; PULSE 73; RESP 18; TEMP 36.7; O2SAT 93
[2025-04-27] MEDS: Calcium Carbonate 500 MG Tablet PO (07:59)
[2025-04-27] MEDS: Sodium Ferric Gluconat/Sucrose 250 MG in 0.9% Normal Saline (250mL Bag) 250 ML 135 MG IV (08:52)
[2025-04-27] MEDS: Nystatin Powder 15gm Bottle 1 APPLIC TOPICAL (09:08)
[2025-04-27] MEDS: Iron Polysaccharide Complex 150 MG CAPSULE PO (09:08)
[2025-04-27] MEDS: APIXABAN 2.5 MG TABLET (WCH) PO (09:08)
[2025-04-27] MEDS: lamoTRIgine 25 MG Tablet 50 MG PO (09:08)
[2025-04-27] MEDS: busPIRone 15 MG TABLET PO (09:08)
[2025-04-27] MEDS: Senna/Docusate Sodium 1 Tablet 2 TABLET PO (09:09)
[2025-04-27] MEDS: Cholecalciferol (VIT D3) 25 MCG TABLET (1,000 UNITS) PO (09:09)
--- NOTE | 2025-04-27 09:19 | CASEMGMT ---
[facility] exemption completed in the HENS system, copy placed in the chart and in the envelope to go with pt to [facility] today. AYAZ Chapin
--- NOTE | 2025-04-27 10:37 | PCA ---
orders faxed to [facility], copies placed on chart. placed call to physicians ambulance [phone]. call placed to janes and he is aware of discharge.
[2025-04-27 10:59] VITALS: BP 105/50; PULSE 79; RESP 18; TEMP 36.9; O2SAT 98
[2025-04-27] MEDS: Insulin Lispro 100 UNIT/ML INSULN.PEN SC (11:15)
[2025-04-27 11:22] LABS: Bedside Glucose 228 mg/dL (74-106)
== END 2025-04-27 11:37 | disposition skilled nursing facility (03) | DRG 522 ==
LOC: ED 15:47 → MS3 16:22
PROVIDERS: Orthopaedic Surgery; Student in an Organized Health Care Education/Training Program; Emergency Provider Emergency Medicine; PCP Family Medicine Geriatric Medicine; Visit Provider Internal Medicine
PROC: 0SRR0J9 Replacement of Right Hip Joint, Femoral Surface with Synthetic Substitute, Cemented, Open Approach (ICD-10-PCS; CPT 27125; principal; 2025-04-25 08:40)
DX: S72.001A Fracture of unspecified part of neck of right femur, initial encounter for closed fracture (principal); D63.1 Anemia in chronic kidney disease; G40.909 Epilepsy, unspecified, not intractable, without status epilepticus; E11.22 Type 2 diabetes mellitus with diabetic chronic kidney disease; N18.31 Chronic kidney disease, stage 3a; E03.9 Hypothyroidism, unspecified; E11.40 Type 2 diabetes mellitus with diabetic neuropathy, unspecified; E78.5 Hyperlipidemia, unspecified; Z79.4 Long term (current) use of insulin; M19.90 Unspecified osteoarthritis, unspecified site; E11.21 Type 2 diabetes mellitus with diabetic nephropathy; G47.33 Obstructive sleep apnea (adult) (pediatric); W19.XXXA Unspecified fall, initial encounter; Z83.3 Family history of diabetes mellitus; Z90.49 Acquired absence of other specified parts of digestive tract; Z90.710 Acquired absence of both cervix and uterus; Z99.89 Dependence on other enabling machines and devices
CPT/HCPCS: 36415; 71045; 73502; 73560; 73600; 80048; 80053; 82306; 82962; 83036; 84443; 85025; 85027; 86850; 86900; 86901; 87811; 88307; 88311; 93005; 97162; 97166; 99283; C1776; A4216; J2405; J2916

== ENCOUNTER → 2025-06-06 | Outpatient (CLI) | payer MEDICARE, BC, SELFPAY ==
[2025-06-06 14:57] LABS: Hematocrit 36.0 % (37-47); Hemoglobin 11.7 g/dL (12.0-15.0); Immature Granulocytes Count 0.010 X10^3/uL (0.0-0.0); Mean Corp Hgb Conc 32.5 g/dL (32-36); Mean Corpuscular Volume 88.9 fL (81-99); Mean Platelet Vol. 9.5 fl (6.2-12.0); NRBC Flagged by Analyzer 0 % (0-5); Platelet Count 348 K/mm3 (150-450); RBC Distribution Width CV 12.3 % (11.6-14.6); RBC Distribution Width SD 40.1 fl (35.1-43.9); Red Blood Count 4.05 M/mm3 (4.2-5.4); White Blood Count 8.5 K/mm3 (4.4-11.0)
[2025-06-06 16:23] LABS: AST(SGOT) 16 U/L (<=31); Alanine Aminotransfer ALT/SGPT 13 U/L (<=34); Albumin, Serum 3.6 g/dL (3.4-4.8); Alkaline Phosphatase 122 U/L (35-104); Anion Gap 13 (5-15); BUN 31 mg/dL (4-19); BUN/Creat Ratio 23.0 RATIO (10-20); Calcium,Total 10.0 mg/dL (7.6-11.0); Carbon Dioxide 23.9 mmol/L (21.0-32.0); Chloride 98 mmol/L (98-108); Cholesterol 94 mg/dL (<=200); Globulin 3.6 g/dL (2.2-4.2); Glucose 199 mg/dL (70-99); Low Density Lipoprotein Calc. 40 mg/dL; Potassium 4.4 mmol/L (3.3-5.1); Triglycerides 91 mg/dL; Very Low Density Lipoprotein 18 mg/dL (5-40); Vitamin D,25 Hydroxy 36.5 ng/mL (30-100); cholesterol:hdl ratio screen 2.66
== END | disposition home or self-care (01) ==
LOC: POLAB3 14:29
PROVIDERS: PCP Family Medicine Geriatric Medicine; Visit Provider Family Medicine Geriatric Medicine
DX: E03.9 Hypothyroidism, unspecified (principal); N18.4 Chronic kidney disease, stage 4 (severe); E11.22 Type 2 diabetes mellitus with diabetic chronic kidney disease
CPT/HCPCS: 36415; 80053; 80061; 82306; 83036; 84443; 85025

== ENCOUNTER → 2025-07-12 | Outpatient (CLI) | payer MEDICARE, BC, SELFPAY ==
[2025-07-12 13:14] LABS: Creatinine, Urine (random) 41.20 mg/dL (28.00-217.00); Microalbumin,Random Urine 50.0 mg/L (<20 mg/L)
== END | disposition home or self-care (01) ==
LOC: LABSPEC 12:16
PROVIDERS: PCP Family Medicine Geriatric Medicine; Referring Provider Family Medicine Geriatric Medicine; Visit Provider Family Medicine Geriatric Medicine
DX: N18.31 Chronic kidney disease, stage 3a (principal); E11.22 Type 2 diabetes mellitus with diabetic chronic kidney disease; E11.65 Type 2 diabetes mellitus with hyperglycemia
CPT/HCPCS: 82043; 82570

== ENCOUNTER → 2025-09-19 | Outpatient (CLI) | payer MEDICARE, BC, SELFPAY ==
--- NOTE | 2025-09-19 12:42 | BI_ITS ---
EXAM: SCRN MAMM (CAD)W/JOSELUIS BILAT DATE: 09/19/2025 CLINICAL HISTORY: F, Age 70 y/o , SCREENING MAMMOGRAM Prior left excisional breast biopsy and stereotactic breast biopsy. TECHNIQUE: Procedure Code: [id number] Modality: MG Procedure: SCRN MAMM (CAD)W/JOSELUIS BILAT COMPARISON: Prior exam(s) dated September 07, 2024.. FINDINGS: TISSUE DENSITY: The breasts are heterogeneously dense, which may obscure small masses. Bilateral Breast Mammographic Findings: No significant masses, calcifications or other abnormalities are identified. Since prior study, the patient underwent excisional breast biopsy in the deep upper lateral aspect of the left breast. Post operative scarring is seen. BI/SCRN MAMM (CAD)W/JOSELUIS BILAT IMPRESSION: Status post excisional breast biopsy in the deep lateral upper aspect of the le ft breast. The previously seen cluster of microcalcification has been resected. OVERALL FINAL ASSESSMENT BI-RADS 2: BENIGN RECOMMENDATION: Routine annual follow-up in 1 Year Additional Recommendation none A letter with findings and recommendations will be mailed to the patient. Reading Location: [place] [id number]
== END | disposition home or self-care (01) ==
LOC: OPBI 12:39
PROVIDERS: PCP Family Medicine Geriatric Medicine; Referring Provider Physician Assistant; Visit Provider Physician Assistant
DX: Z12.31 Encounter for screening mammogram for malignant neoplasm of breast (principal)
CPT/HCPCS: 77063; 77067

== ENCOUNTER → 2025-10-08 | Outpatient (CLI) | payer MEDICARE, BC, SELFPAY ==
[2025-10-08 14:58] LABS: Hematocrit 33.5 % (37-47); Hemoglobin 10.6 g/dL (12.0-15.0); Immature Granulocytes Count 0.020 X10^3/uL (0.0-0.0); Mean Corp Hgb Conc 31.6 g/dL (32-36); Mean Corpuscular Volume 87.5 fL (81-99); Mean Platelet Vol. 9.9 fl (6.2-12.0); NRBC Flagged by Analyzer 0 % (0-5); Platelet Count 325 K/mm3 (150-450); RBC Distribution Width CV 14.9 % (11.6-14.6); RBC Distribution Width SD 48.3 fl (35.1-43.9); Red Blood Count 3.83 M/mm3 (4.2-5.4); White Blood Count 8.0 K/mm3 (4.4-11.0)
[2025-10-08 15:55] LABS: AST(SGOT) 20 U/L (<=31); Alanine Aminotransfer ALT/SGPT 9 U/L (<=34); Albumin, Serum 3.9 g/dL (3.4-4.8); Alkaline Phosphatase 138 U/L (35-104); Anion Gap 10 (5-15); BUN 21 mg/dL (4-19); BUN/Creat Ratio 17.2 RATIO (10-20); Calcium,Total 9.4 mg/dL (7.6-11.0); Carbon Dioxide 25.6 mmol/L (21.0-32.0); Chloride 102 mmol/L (98-108); Globulin 3.3 g/dL (2.2-4.2); Glucose 213 mg/dL (70-99); Potassium 4.5 mmol/L (3.3-5.1); Vitamin D,25 Hydroxy 41.6 ng/mL (30-100)
[2025-10-08 22:43] LABS: Xtra Tube Kwok EXTRA TUBE
== END | disposition home or self-care (01) ==
LOC: POLAB3 14:43
PROVIDERS: PCP Family Medicine Geriatric Medicine; Visit Provider Family Medicine Geriatric Medicine
DX: E11.22 Type 2 diabetes mellitus with diabetic chronic kidney disease (principal); E11.65 Type 2 diabetes mellitus with hyperglycemia; R53.83 Other fatigue; E55.9 Vitamin D deficiency, unspecified
CPT/HCPCS: 36415; 80053; 82306; 84443; 85025